=== PATIENT | female | born 1955 | race Caucasian/White ===

== ENCOUNTER 2017-08-23 06:00 | Inpatient (IN) | payer OTHER ==
[~2017-08-23] VITALS: Ht 167.6 cm; Wt 154.0 kg
[~2017-08-23 06:00] MED LIST: CHOL50006 PO; ESTRGEL TOP; HCTZ50TA PO; MELA5TAB8 PO; MISCTAB12 PO; MULTCAP PO; OMEG1205 PO; PHEN15CA PO; PRED1TAB PO; PROG100C PO; SIMV5TAB3 PO; SYNT25TA PO
[2017-08-23] MEDS ORDERED: SCOPOLAMINE 1.5 MG PATCH T-DERMAL SCH (07:15)
[2017-08-23] MEDS ORDERED: CHLORHEXIDINE GLUCONATE 2 % 1 PACK (2 CLOTHS) TOPICAL PRN (07:15)
[2017-08-23] MEDS ORDERED: SODIUM CHLORID 0.9% 500 ML IV PRN (07:15)
[2017-08-23] MEDS ORDERED: VANCOMYCIN 1,500 MG/NS 500 ML (for 85-99 kg) IV SCH ×2 (07:15)
[2017-08-23] MEDS ORDERED: LACTATED RINGER'S 1000 ML IV PRN (07:15)
[2017-08-23] MEDS ORDERED: ONDANSETRON HCL 4 MG/2 ML VIAL IV PUSH SCH (07:15)
[2017-08-23] MEDS ORDERED: metroNIDAZOLE 500 MG INJ 100 ML IV SCH (07:15)
[2017-08-23] MEDS ORDERED: METOPROLOL TARTRATE 25 MG TAB PO PRN (07:15)
[2017-08-23] MEDS ORDERED: POVIDONE IODINE 5% (ANTISEPSIS KIT) 4 APPLICATIONS EACH NARE PRN (07:15)
[2017-08-23] MEDS ORDERED: APREPITANT 40 MG CAP PO SCH (07:15)
[2017-08-23] MEDS ORDERED: CHOL5000 PO (07:17)
[2017-08-23] MEDS ORDERED: TRIA37.53 PO (07:17)
[2017-08-23] MEDS ORDERED: ESTRGEL VAGINAL (07:17)
[2017-08-23] MEDS ORDERED: OMEGCAP PO (07:17)
[2017-08-23] MEDS ORDERED: PROG100C PO (07:17)
[2017-08-23] MEDS ORDERED: LEVO25TA4 PO (07:17)
[2017-08-23] MEDS ORDERED: AMLO2.5T PO (07:19)
[2017-08-23] MEDS ORDERED: ARMO120T PO (07:25)
[2017-08-23] MEDS ORDERED: LEVE250T5 PO (07:25)
[2017-08-23] MEDS ORDERED: METH1CAP14 PO (07:25)
[2017-08-23] MEDS ORDERED: MELO15TA20 PO (07:25)
[2017-08-23] MEDS ORDERED: METF500T PO (07:28)
[2017-08-23] MEDS ORDERED: VENL75CA44 PO (07:28)
[2017-08-23] MEDS ORDERED: ALLO100T PO (07:28)
[2017-08-23] MEDS ORDERED: TRIA1CAP PO (07:28)
[2017-08-23] MEDS ORDERED: ceFAZolin 2 GM PREMIX 0 ML ONE (07:30)
[2017-08-23] MEDS ORDERED: BUPIVACAINE/EPINEPHRINE 0.25% 50 ML VIAL ONE (07:31)
[2017-08-23] MEDS ORDERED: ACETAMINOPHEN 1000 MG/100 ML 100 ML IV SCH (07:45)
[2017-08-23] MEDS ORDERED: METHYLENE BLUE 10 MG/ML VIAL OTHER ONE (10:13)
[2017-08-23] MEDS ORDERED: ENALAPRILAT 1.25 MG/ML VIAL IV PUSH PRN (10:45)
[2017-08-23] MEDS ORDERED: HYDROmorphone HCL 2 MG TAB PO PRN (10:45)
[2017-08-23] MEDS ORDERED: SODIUM CHLORIDE 0.9% FLUSH 10 ML FLUSH IV FLUSH PRN (10:45)
[2017-08-23] MEDS ORDERED: diphenhydrAMINE HCL ELIXIR 12.5 MG/5 ML CUP PO PRN (10:45)
[2017-08-23] MEDS ORDERED: NALOXONE HCL 0.4 MG/ML AMP IV PUSH PRN (10:45)
[2017-08-23] MEDS ORDERED: Post-op Orders (for Pharmacy) MISC OTHER ONE (10:51)
[2017-08-23] MEDS ORDERED: *RESP: ALBUTEROL 2.5 MG/3 ML NEB (PRN) PERIprocedural Use ONLY NEB ONE (11:30)
[2017-08-23] MEDS ORDERED: ePHEDrine/NS 25 MG/5 ML SYR IV ONE (12:00)
[2017-08-23] MEDS: METOCLOPRAMIDE HCL 10 MG/2 ML VIAL IV PUSH SCH ×2 (12:00→16:45)
[2017-08-23] MEDS ORDERED: GLYCOPYRROLATE 1 MG/5 ML SYRINGE IV PUSH ONE (12:00)
[2017-08-23] MEDS ORDERED: KETOROLAC TROMETHAMINE 30 MG/ML (IVP) VIAL IV PUSH ONE (12:00)
[2017-08-23] MEDS ORDERED: MORPHINE SULFATE 4 MG/ML INJ IV ONE (12:00)
[2017-08-23] MEDS ORDERED: ROCURONIUM INJ 50 MG/5 ML SYRINGE IV PUSH ONE (12:00)
[2017-08-23] MEDS ORDERED: PROPOFOL 200 MG/20 ML AMP IV ONE (12:00)
[2017-08-23] MEDS ORDERED: MIDAZOLAM HCL 2 MG/2 ML VIAL IV ONE (12:00)
[2017-08-23] MEDS ORDERED: ONDANSETRON HCL 4 MG/2 ML VIAL IV ONE (12:00)
[2017-08-23] MEDS ORDERED: NEOSTIGMINE 3 MG/3 ML SYR IV ONE (12:00)
[2017-08-23] MEDS ORDERED: PHENYLEPH/NS 1000 MCG/10 ML SYR IV ONE (12:00)
[2017-08-23] MEDS: RESP: ALBUTEROL 2.5 MG/3 ML NEB (SCH) INH ×2 (12:00→20:31)
[2017-08-23] MEDS ORDERED: LIDOCAINE HCL 1% PF 5 ML AMPULE OTHER ONE (12:00)
[2017-08-23] MEDS: 1/2 NS + KCL 20 MEQ INJ 1,000 ML IV SCH ×2 (12:21→20:49)
[2017-08-23] MEDS: MORPHINE SULFATE 30 MG/30 ML PCA IV SCH (12:22)
[2017-08-23 13:05] LABS: HEMATOCRIT 38.5 % (35.0-46.0); REVIEW FLAG FINAL
[2017-08-23] MEDS ORDERED: DO NOT ADM ANY ANTICOAGULANT DRUGS PRN (14:00)
[2017-08-23] MEDS: PCA - TOTAL MG MORPHINE DELIVERED PER SHIFT SCH ×2 (14:00→22:00)
[2017-08-23] MEDS ORDERED: ENOXAPARIN SODIUM 40 MG/0.4 ML SYRINGE SQ SCH (15:00)
[2017-08-23 16:00] VITALS: BP 104/54; PULSE 71; RESP 17; TEMP 96.2; O2SAT 97
[2017-08-23] MEDS ORDERED: LACTATED RINGER'S 1000 ML INJ 500 ML IV SCH (16:00)
[2017-08-23] MEDS: metroNIDAZOLE 500 MG INJ 100 ML IV SCH (16:42)
[2017-08-23] MEDS ORDERED: PILL SPLITTER OTHER PRN (17:45)
[2017-08-23 20:09] VITALS: BP 145/68; PULSE 78; RESP 16; TEMP 96.6; O2SAT 95
[2017-08-23 20:31] VITALS: O2SAT 95
[2017-08-23] MEDS: levETIRAcetam 250 MG TAB PO SCH ×2 (20:48→21:00)
[2017-08-23] MEDS: VANCOMYCIN INJ 1,000 MG in SODIUM CHLOR 0.9% 250 ML INJ 250 ML IV SCH (20:48)
[2017-08-23] MEDS: SODIUM CHLORIDE 0.9% FLUSH 10 ML FLUSH IV FLUSH SCH (20:49)
[2017-08-23] MEDS: ONDANSETRON HCL 4 MG/2 ML VIAL IV PUSH PRN (21:15)
--- NOTE | 2017-08-23 22:01 | MP ---
cc: ESTEFANIA HERNANDEZ M.D., LARS DATE OF SURGERY 08/23/2017 DATE OF 1955 PREOPERATIVE DIAGNOSIS Morbid obesity with BMI of 54 complicated by essential hypertension. POSTOPERATIVE DIAGNOSIS Morbid obesity with BMI of 54 complicated by essential hypertension. PROCEDURE Laparoscopic vertical sleeve gastrectomy over A 36-Kazakh ViSiGi bougie. SURGEON Estefania Hernandez MD [employer] Julian Preciado MD. Dr. Preciado's assistance was necessary for the procedure due to the complexity of the procedure. Dr. Preciado assisted with manipulation and exposure during the procedure. Dr. Preciado was present for the entire procedure. ANESTHESIA General endotracheal anesthesia. ESTIMATED BLOOD LOSS 600 cc. FINDINGS Adhesions of omentum to abdominal wall. As a result of this on entering the abdominal cavity the mesentery of the small bowel was entered which led to bleeding. The bleeding was controlled with suture ligation. SPECIMENS None. OPERATION The patient was brought to the operating room, placed on the operating table in supine position. Bilateral sequential inflation device placed on the lower extremities. General anesthesia instituted. Antibiotics initiated. The abdomen was prepped and draped sterilely. A point in the epigastrium 15 cm distal to the xiphoid in the midline anesthetized with 0.25% Marcaine with epinephrine. The skin incision was made, a 5 mm OptiView port was placed under direct vision. The omentum adhesed to the abdominal wall. This started the abdominal wall which led to the placement of the trocar into the mesentery of the small bowel. This was identified and there was bleeding from the mesentery. Two additional 5 mm ports were placed in the right upper quadrant. In the left upper quadrant omental adhesions taken down. A 15 mm port was placed in the right upper quadrant. Attention focused on the mesentery. 2-0 Vicryl suture was used to ligate the bleeding vessel in the mesentery in a [id number] manner. Once this was done bleeding was stopped. The trocar appeared to pass through to the other side to the small bowel was inspected from the ligament of Treitz to the terminal ileum. No evidence of bowel injury identified. The hematoma in the mesentery which was not expanding after ligation. At this point attention focused on the sleeve gastrectomy. The patient was placed in reverse Trendelenburg position left side up. A Jackie-Flex retractor was placed. The left lobe of the liver was retracted. The vasculature along the greater curvature of the stomach was using a Harmonic scalpel starting a distance 5 cm proximal to the pylorus and carried towards the angle of His. The angle of His was taken down bluntly. Posterior ligamentous attachments were sharply . A 36-Kazakh ViSiGi bougie was placed at the start of the case and placed on suction. Division of the stomach started 5 cm proximal to the pylorus and carried towards the angle of His to completely excise approximately 80% of the stomach. This was performed using an Hassell Flex stapler at the pylorus. The first firing was with a black load, followed by a green load and four gold loads. All staple loads were reinforced with SeamGuard. A distance of 2 cm was left from the angle incisura and the staple line and a distance of 1 cm left from the GE junction and the staple line. The pylorus was then occluded, methylene blue tinged saline was instilled. There was no evidence of extravasation. The gastrocolic ligament was then sutured to the posterior leaflet of the SeamGuard using 2-0 Vicryl suture in a running manner. Bleeding points were controlled with Evicel. The excised stomach was removed from the peritoneal cavity through the 15 mm port site. The fascia at the 15 mm port site was approximated with 0 Vicryl suture. The CO2 was then released. All ports were removed. All skin incisions were closed with 4-0 Monocryl. The abdominal wall was cleaned and a sterile dressing placed. The patient was awakened and taken to the recovery room. MD SURJIT Galo/JESSI /4:25 PM /9:42 PM KHOA
[2017-08-23] MEDS: ACETAMINOPHEN 1000 MG/100 ML 100 ML IV SCH (23:02)
[2017-08-24] VITALS (9 sets, daily range): BP systolic 119–136; BP diastolic 61–67; PULSE 81–98; RESP 17–18; TEMP 96.8–98.5; O2SAT 93–99
[2017-08-24] MEDS: RESP: ALBUTEROL 2.5 MG/3 ML NEB (SCH) INH ×6 (00:07→20:28)
[2017-08-24] MEDS: metroNIDAZOLE 500 MG INJ 100 ML IV SCH ×2 (01:00→08:55)
[2017-08-24] MEDS: METOCLOPRAMIDE HCL 10 MG/2 ML VIAL IV PUSH SCH ×2 (01:00→05:36)
[2017-08-24] MEDS: MORPHINE SULFATE 30 MG/30 ML PCA IV SCH (01:04)
[2017-08-24] MEDS: diphenhydrAMINE HCL 50 MG/ML VIAL IV PUSH PRN (01:36)
[2017-08-24] MEDS: ACETAMINOPHEN 1000 MG/100 ML 100 ML IV SCH ×4 (05:36→21:30)
[2017-08-24] MEDS: PCA - TOTAL MG MORPHINE DELIVERED PER SHIFT SCH (06:00)
[2017-08-24 07:37] LABS: AUTOMATED NEUTROPHIL # 6.4 TH/MM3 (1.8-7.7); BASOPHIL % 0.3 % (0.0-2.0); EOSINOPHIL % 0.2 % (0.0-4.0); HEMATOCRIT 38.4 % (35.0-46.0); HEMO FLAGS DIFF FINAL; LYMPHOCYTE # 1.3 TH/MM3 (1.0-4.8); MEAN CELL VOLUME 93.9 FL (80.0-100.0); MEAN CORPUSCULAR HEMOGLOBIN 30.9 PG (27.0-34.0); MEAN CORPUSCULAR HGB CONC 32.9 % (32.0-36.0); MONO % 7.4 % (0.0-8.0); NEUT % 76.1 % (16.0-70.0); PLATELET COUNT 188 TH/MM3 (150-450); RED BLOOD COUNT 4.09 MIL/MM3 (4.00-5.30); RED CELL DISTRIBUTION WIDTH 14.5 % (11.6-17.2); WHITE BLOOD COUNT 8.5 TH/MM3 (4.0-11.0)
[2017-08-24 07:53] LABS: BICARBONATE 24.5 MEQ/L (21.0-32.0); MAGNESIUM 2.3 MG/DL (1.5-2.5); POTASSIUM 4.6 MEQ/L (3.5-5.1)
[2017-08-24] MEDS: 1/2 NS + KCL 20 MEQ INJ 1,000 ML IV SCH ×3 (08:57→21:30)
[2017-08-24] MEDS: PANTOPRAZOLE SOD 40 MG DELAYED RELEASE TAB PO SCH (08:58)
[2017-08-24] MEDS: VENLAFAXINE HCL XR 75 MG CAP PO SCH (08:58)
[2017-08-24] MEDS: amLODIPine BESYLATE 5 MG TAB PO SCH (08:58)
[2017-08-24] MEDS: ALLOPURINOL 100 MG TAB PO SCH (08:58)
[2017-08-24] MEDS: THYROID 60 MG TAB PO SCH (08:58)
[2017-08-24] MEDS: levETIRAcetam 250 MG TAB PO SCH ×2 (08:58→21:30)
[2017-08-24] MEDS: SODIUM CHLORIDE 0.9% FLUSH 10 ML FLUSH IV FLUSH SCH ×2 (09:00→21:00)
[2017-08-24] MEDS: VANCOMYCIN INJ 1,000 MG in SODIUM CHLOR 0.9% 250 ML INJ 250 ML IV SCH (10:05)
--- NOTE | 2017-08-24 15:44 | HHI.PR ---
Subjective Subjective Notes Sitting up in chair No GI complaints Incisional pain is better controlled today Going slow with PO fluids Objective Vitals/I&O Vital Signs Date Time Temp Pulse Resp B/P (MAP) Pulse Ox O2 Delivery O2 Flow Rate FiO2 08/24/17 12:00 96.8 98 17 126/63 (84) 96 08/24/17 08:05 21 08/23/17 15:30 Nasal Cannula 3 Labs Laboratory Tests Test 08/24/17 06:35 White Blood Count 8.5 Red Blood Count 4.09 Hemoglobin 12.6 Hematocrit 38.4 Mean Corpuscular Volume 93.9 Mean Corpuscular Hemoglobin 30.9 Mean Corpuscular Hemoglobin Concent 32.9 Red Cell Distribution Width 14.5 Platelet Count 188 Mean Platelet Volume 8.8 Neutrophils (%) (Auto) 76.1 Lymphocytes (%) (Auto) 16.0 Monocytes (%) (Auto) 7.4 Eosinophils (%) (Auto) 0.2 Basophils (%) (Auto) 0.3 Neutrophils # (Auto) 6.4 Lymphocytes # (Auto) 1.3 Monocytes # (Auto) 0.6 Eosinophils # (Auto) 0.0 Basophils # (Auto) 0.0 CBC Comment DIFF FINAL Differential Comment Blood Urea Nitrogen 19 Creatinine 0.69 Random Glucose 142 Calcium Level 8.7 Magnesium Level 2.3 Sodium Level 138 Potassium Level 4.6 Chloride Level 103 Carbon Dioxide Level 24.5 Anion Gap 11 Estimat Glomerular Filtration Rate 86 Cardiovascular: Regular Lungs: Clear Abdomen: Post-op tenderness Extremities: Perfused Wound Wound : Wound Location: Abdomen Appearance: Clean & Dry A/P Assessment and Plan 61yo F POD#1 laparoscopic -Continue with frequent ambulation -Continue to increase PO fluids as tolerated -Transition to oral pain control Discharge Planning D/C home tomorrow lFower Gomez Aug 24, 2017 15:44
[2017-08-24] MEDS: ENOXAPARIN SODIUM 40 MG/0.4 ML SYRINGE SQ SCH (15:45)
[2017-08-24] MEDS ORDERED: MAGNESIUM HYDROXIDE SUSP 30 ML CUP PO ONE (17:00)
[2017-08-24] MEDS: ONDANSETRON HCL 4 MG/2 ML VIAL IV PUSH PRN (18:32)
[2017-08-24] MEDS: DOCUSATE SODIUM 100 MG/10 ML UDC PO SCH (21:30)
[2017-08-24] MEDS: METOCLOPRAMIDE HCL 10 MG/2 ML VIAL IV PUSH PRN (21:30)
[2017-08-25] VITALS (7 sets, daily range): BP systolic 131–139; BP diastolic 62–71; PULSE 89–106; RESP 16–20; TEMP 97.5–99.6; O2SAT 93–98
[2017-08-25] MEDS: RESP: ALBUTEROL 2.5 MG/3 ML NEB (SCH) INH ×3 (00:23→07:48)
[2017-08-25] MEDS: METOCLOPRAMIDE HCL 10 MG/2 ML VIAL IV PUSH PRN (04:41)
[2017-08-25] MEDS: ACETAMINOPHEN 1000 MG/100 ML 100 ML IV SCH ×4 (04:41→21:25)
[2017-08-25] MEDS ORDERED: LORazepam 2 MG/ML VIAL IV PUSH ONE (08:30)
[2017-08-25] MEDS: 1/2 NS + KCL 20 MEQ INJ 1,000 ML IV SCH ×2 (08:55→21:26)
[2017-08-25] MEDS: amLODIPine BESYLATE 5 MG TAB PO SCH (08:56)
[2017-08-25] MEDS: ALLOPURINOL 100 MG TAB PO SCH (08:57)
[2017-08-25] MEDS: levETIRAcetam 250 MG TAB PO SCH ×2 (08:57→21:25)
[2017-08-25] MEDS: PANTOPRAZOLE SOD 40 MG DELAYED RELEASE TAB PO SCH (08:57)
[2017-08-25] MEDS: THYROID 60 MG TAB PO SCH (08:58)
[2017-08-25] MEDS: SODIUM CHLORIDE 0.9% FLUSH 10 ML FLUSH IV FLUSH SCH ×2 (08:58→21:25)
[2017-08-25] MEDS: VENLAFAXINE HCL XR 75 MG CAP PO SCH (08:58)
[2017-08-25] MEDS: DOCUSATE SODIUM 100 MG/10 ML UDC PO SCH ×2 (08:58→21:25)
[2017-08-25 10:11] LABS: AUTOMATED NEUTROPHIL # 8.6 TH/MM3 (1.8-7.7); BASOPHIL % 0.3 % (0.0-2.0); EOSINOPHIL # 0.1 TH/MM3 (0-0.4); EOSINOPHIL % 0.7 % (0.0-4.0); HEMATOCRIT 31.6 % (35.0-46.0); HEMO FLAGS DIFF FINAL; LYMPH % 13.8 % (9.0-44.0); LYMPHOCYTE # 1.6 TH/MM3 (1.0-4.8); MEAN CELL VOLUME 92.9 FL (80.0-100.0); MEAN CORPUSCULAR HGB CONC 33.4 % (32.0-36.0); NEUT % 75.2 % (16.0-70.0); PLATELET COUNT 163 TH/MM3 (150-450); RED CELL DISTRIBUTION WIDTH 14.5 % (11.6-17.2); WHITE BLOOD COUNT 11.4 TH/MM3 (4.0-11.0)
[2017-08-25] MEDS ORDERED: MAGNESIUM HYDROXIDE SUSP 30 ML CUP PO ONE (13:00)
[2017-08-25] MEDS ORDERED: POLYETHYLENE GLYCOL 17 GM PKG PO ONE (13:00)
--- NOTE | 2017-08-25 13:04 | HHI.PR ---
Subjective Subjective Notes Complains of pelvic pain Urine is dark with some sediment, scant amount of blood seen on toilet Tolerating PO fluids No GI complaints Objective Vitals/I&O Vital Signs Date Time Temp Pulse Resp B/P (MAP) Pulse Ox O2 Delivery O2 Flow Rate FiO2 08/25/17 12:00 97.6 103 17 139/62 (87) 94 08/25/17 07:48 21 08/23/17 15:30 Nasal Cannula 3 Labs Laboratory Tests Test 08/25/17 09:25 White Blood Count 11.4 Red Blood Count 3.40 Hemoglobin 10.6 Hematocrit 31.6 Mean Corpuscular Volume 92.9 Mean Corpuscular Hemoglobin 31.0 Mean Corpuscular Hemoglobin Concent 33.4 Red Cell Distribution Width 14.5 Platelet Count 163 Mean Platelet Volume 9.0 Neutrophils (%) (Auto) 75.2 Lymphocytes (%) (Auto) 13.8 Monocytes (%) (Auto) 10.0 Eosinophils (%) (Auto) 0.7 Basophils (%) (Auto) 0.3 Neutrophils # (Auto) 8.6 Lymphocytes # (Auto) 1.6 Monocytes # (Auto) 1.1 Eosinophils # (Auto) 0.1 Basophils # (Auto) 0.0 CBC Comment DIFF FINAL Differential Comment Abdomen: Post-op tenderness Extremities: Perfused Wound Wound : Wound Location: Abdomen Appearance: Clean & Dry A/P Assessment and Plan -61yo F POD#2 laparoscopic VSG -Send UA, renal U/S to assess for possible stones -Continue with frequent ambulation -Continue to increase PO fluids as tolerated -Add another dose of MoM and Miralax for bowel regimen Discharge Planning D/C home most likely tomorrow Flower Gomez Aug 25, 2017 13:04
[2017-08-25 13:50] LABS: BLOOD, URINE MOD (NEG); COMMENT (UR) CULTURE INDICATED; CULTURE IF INDICATED CULTURE INDICATED; GLUCOSE,URINE NEG (NEG); KETONE, URINE 80 mg/dL (NEG); MUCUS URINE FEW /lpf (OCC); NITRITE,URINE NEG (NEG); SQUAMOUS EPITHELIAL CELL URINE 2 /hpf (0-5)
--- NOTE | 2017-08-25 13:50 | RADRPT ---
EXAM DATE/TIME: 08/25/2017 12:39 [facility] COMPARISON: No previous studies available for comparison. INDICATIONS : Hematuria. MEDICAL HISTORY : Hypothyroidism. Hypercholesterolemia. Hypertension. Sleep apnea. SURGICAL HISTORY : Cholecystectomy. Retinal surgery. L ankle fracture. Arm surgery. D&C. Fatty tumor left leg remove d. Abdominal cyst remmoved. ENCOUNTER: Initial ACUITY: 1 day PAIN SCORE: 0/10 LOCATION: Bilateral flank MEASUREMENTS: RIGHT KIDNEY: 11.4 x 5.9 x 6.4 cm LEFT KIDNEY: 13.0 x 6.7 x 7.0 cm FINDINGS: Examination is limited by patient's body habitus and bowel gas. RIGHT KIDNEY: Renal cortex is normal in thickness and echotexture. No hydronephrosis, stone, or mass. LEFT KIDNEY: Renal cortex is normal in thickness and echotexture. No hydronephrosis, stone, or mass. BLADDER: Within normal limits given the degree of distension. CONCLUSION: 1. Unremarkable renal ultrasound examination. No evidence for obstructive uropathy. Brady Mendenhall MD on August 25, 2017 at 13:48 Board Certified Radiologist. This report was verified electronically.
[2017-08-25 13:52] LABS: URINE COLOR LIGHT-RED (YELLW/STRAW)
[2017-08-25] MEDS: ENOXAPARIN SODIUM 40 MG/0.4 ML SYRINGE SQ SCH (15:08)
--- NOTE | 2017-08-25 19:22 | RADRPT ---
EXAM DATE/TIME: 08/25/2017 18:59 [facility] COMPARISON: No previous studies available for comparison. INDICATIONS : Left lower quadrant pain; posssible renal stone. ORAL CONTRAST: No oral contrast ingested. RADIATION DOSE: 18.16 CTDIvol (mGy) ; Patient body habitus MEDICAL HISTORY : Hypertension. SURGICAL HISTORY : Cholecystectomy. Gastric sleeve ENCOUNTER: Initial ACUITY: 1 day PAIN SCALE: 6/10 LOCATION: Left lower quadrant TECHNIQUE: Volumetric scanning of the abdomen and pelvis was performed. Using automated exposure control and ad justment of the mA and/or kV according to patient size, radiation dose was kept as low as reasonably achievable to obtain optimal diagnostic quality images. DICOM format image data is available electro nically for review and comparison. FINDINGS: The study is limited by the patient's body habitus in conjunction with the lack of oral and IV contra st. LOWER LUNGS: The visualized lower lungs are clear. LIVER: Homogeneous density without lesion. There is no dilation of the biliary tree. No calcified gallston es. SPLEEN: Normal size without lesion. PANCREAS: Within normal limits. KIDNEYS: Normal in size and shape. There is no mass, stone, or hydronephrosis. ADRENAL GLANDS: Within normal limits. VASCULAR: There is no aortic aneurysm. BOWEL/MESENTERY: There is stranding of the mesentery within the midline. There are multiple loops of small bowel that show wall thickening. No discrete free air or free fluid observed. No abscess appreciated. There are several loops of mildly dilated proximal small bowel within the left upper quadrant and left anterior midabdomen. A region maximum diameter of 3.7 cm. The colon is normal in caliber. ABDOMINAL WALL: Within normal limits. RETROPERITONEUM: There is no lymphadenopathy. BLADDER: No wall thickening or mass. REPRODUCTIVE: Within normal limits. INGUINAL: There is no lymphadenopathy or hernia. MUSCULOSKELETAL: Within normal limits for patient age. CONCLUSION: 1. This study is limited by the patient's body habitus in conjunction with the lack of oral and IV co ntrast. 2. Inflammatory process involving the mesentery as well as several loops of small bowel. There is mil d dilatation of the more proximal small bowel but no gross obstruction, abscess, or perforation. Tae Archuleta Jr., MD on August 25, 2017 at 19:14 Board Certified Radiologist. This report was verified electronically.
[2017-08-25] MEDS: ONDANSETRON HCL 4 MG/2 ML VIAL IV PUSH PRN (21:23)
[2017-08-25] MEDS: diphenhydrAMINE HCL 50 MG/ML VIAL IV PUSH PRN (22:10)
[2017-08-26 00:21] VITALS: BP 142/64; PULSE 98; RESP 17; TEMP 100.5; O2SAT 94
[2017-08-26] MEDS: ACETAMINOPHEN 1000 MG/100 ML 100 ML IV SCH ×2 (04:08→08:54)
[2017-08-26] MEDS: 1/2 NS + KCL 20 MEQ INJ 1,000 ML IV SCH (04:43)
[2017-08-26 05:36] VITALS: TEMP 96.7
[2017-08-26 08:00] VITALS: BP 119/62; PULSE 100; RESP 18; TEMP 98.3; O2SAT 96
[2017-08-26] MEDS: DOCUSATE SODIUM 100 MG/10 ML UDC PO SCH (08:39)
[2017-08-26] MEDS: VENLAFAXINE HCL XR 75 MG CAP PO SCH (08:39)
[2017-08-26] MEDS: PANTOPRAZOLE SOD 40 MG DELAYED RELEASE TAB PO SCH (08:39)
[2017-08-26] MEDS: THYROID 60 MG TAB PO SCH (08:39)
[2017-08-26] MEDS: ALLOPURINOL 100 MG TAB PO SCH (08:40)
[2017-08-26] MEDS: levETIRAcetam 250 MG TAB PO SCH (08:40)
[2017-08-26] MEDS: amLODIPine BESYLATE 5 MG TAB PO SCH (08:46)
[2017-08-26] MEDS: SODIUM CHLORIDE 0.9% FLUSH 10 ML FLUSH IV FLUSH SCH (08:47)
[2017-08-26] MEDS: ONDANSETRON HCL 4 MG/2 ML VIAL IV PUSH PRN (08:55)
[2017-08-26 12:00] VITALS: BP 137/67; PULSE 100; RESP 18; TEMP 95.5; O2SAT 97
[2017-08-26] MEDS ORDERED: SCOPOLAMINE 1.5 MG PATCH T-DERMAL ONE (12:00)
[2017-08-26] MEDS ORDERED: PROM25TA10 PO (12:00)
== END 2017-08-26 13:53 | disposition home or self-care (01) | DRG 620 ==
LOC: HSDI 06:00 → N07B 15:47
PROVIDERS: ADMIT Surgery; ATTEND Surgery
PROC: 0W3J4ZZ Control Bleeding in Pelvic Cavity, Percutaneous Endoscopic Approach (ICD-10-PCS; 2017-08-23)
PROC: 0DB64Z3 Excision of Stomach, Percutaneous Endoscopic Approach, Vertical (ICD-10-PCS; principal; 2017-08-23 08:27)
DX: E66.01 Morbid (severe) obesity due to excess calories (principal); I97.51 Accidental puncture and laceration of a circulatory system organ or structure during a circulatory system procedure; I10 Essential (primary) hypertension; Z68.43 Body mass index [BMI] 50.0-59.9, adult; K66.0 Peritoneal adhesions (postprocedural) (postinfection); G40.909 Epilepsy, unspecified, not intractable, without status epilepticus
CPT/HCPCS: 74176; 76775; 80048; 81001; 83735; 85014; 85018; 85025; 87086; 94150; 94640; 94664; J0131; J0690; J1200; J1650; J1885; J2060; J2250; J2270; J2370; J2405; J2710; J2765; J3010; J3370; J7040; J7050; J7120; J7613; J8501

== ENCOUNTER 2017-08-28 17:00 | Inpatient (IN) | payer OTHER ==
[~2017-08-28] VITALS: Ht 167.6 cm; Wt 160.0 kg
[~2017-08-28 17:00] MED LIST changes: +ALLO100T PO; +AMLO2.5T PO; +ARMO120T PO; +CHOL5000 PO; -CHOL50006 PO; -ESTRGEL TOP; +ESTRGEL VAGINAL; -HCTZ50TA PO; +LEVE250T5 PO; -MELA5TAB8 PO; +MELO15TA20 PO; +METF500T PO; +METH1CAP14 PO; -MISCTAB12 PO; -MULTCAP PO; -OMEG1205 PO; +OMEGCAP PO; -PHEN15CA PO; -PRED1TAB PO; +PROM25TA10 PO; -SIMV5TAB3 PO; -SYNT25TA PO; +TRIA1CAP PO; +VENL75CA44 PO
[2017-08-28] MEDS ORDERED: HYDROmorphone HCL PF 1 MG/ML VIAL IV PUSH PRN (18:45)
[2017-08-28] MEDS ORDERED: METOCLOPRAMIDE HCL 10 MG TAB PO PRN (19:30)
[2017-08-28] MEDS ORDERED: ONDANSETRON ODT 4 MG TAB PO PRN (19:30)
[2017-08-28 20:00] VITALS: BP 164/80; PULSE 100; RESP 17; TEMP 96.5; O2SAT 99
[2017-08-28] MEDS ORDERED: PILL SPLITTER OTHER PRN (20:00)
[2017-08-28] MEDS ORDERED: MULTIVITAMIN INJ 10 ML, THIAMINE INJ 100 MG in SODIUM CHLORID 0.9% 500 ML INJ 500 ML IV ONE (20:00)
[2017-08-28] MEDS: 1/2 NS + KCL 20 MEQ INJ 1,000 ML IV SCH (20:10)
[2017-08-28] MEDS: SENNOSIDES SYRUP 8.8 MG/5 ML CUP PO SCH (20:11)
[2017-08-28] MEDS: SCOPOLAMINE 1.5 MG PATCH T-DERMAL SCH (20:13)
[2017-08-28] MEDS: REMOVE OLD PATCH T-DERMAL SCH (20:14)
[2017-08-28] MEDS: KETOROLAC TROMETHAMINE 30 MG/ML (IVP) VIAL IV PUSH SCH (20:15)
[2017-08-28] MEDS ORDERED: PROGESTERONE 100 MG PO SCH (21:00)
[2017-08-28] MEDS ORDERED: ESTROGEL OTHER SCH (21:00)
[2017-08-28] MEDS: levETIRAcetam 250 MG TAB PO SCH ×2 (23:35→23:59)
[2017-08-29] VITALS: BP 175/77; PULSE 91; RESP 17; TEMP 99; O2SAT 95
[2017-08-29] MEDS ORDERED: METOCLOPRAMIDE HCL 10 MG/2 ML VIAL IV PRN (01:45)
[2017-08-29] MEDS: KETOROLAC TROMETHAMINE 30 MG/ML (IVP) VIAL IV PUSH SCH ×4 (01:50→18:22)
[2017-08-29] MEDS: ONDANSETRON HCL 4 MG/2 ML VIAL IV PUSH PRN ×3 (01:51→22:38)
[2017-08-29 04:00] VITALS: BP 139/65; PULSE 95; RESP 18; TEMP 97.2; O2SAT 97
[2017-08-29] MEDS: 1/2 NS + KCL 20 MEQ INJ 1,000 ML IV SCH ×3 (05:15→20:27)
[2017-08-29] MEDS: THYROID 60 MG TAB PO SCH (05:38)
[2017-08-29 07:26] LABS: AUTOMATED NEUTROPHIL # 6.2 TH/MM3 (1.8-7.7); BASOPHIL % 0.1 % (0.0-2.0); EOSINOPHIL # 0.2 TH/MM3 (0-0.4); EOSINOPHIL % 1.7 % (0.0-4.0); HEMATOCRIT 31.7 % (35.0-46.0); LYMPH % 15.1 % (9.0-44.0); LYMPHOCYTE # 1.4 TH/MM3 (1.0-4.8); MEAN CELL VOLUME 92.1 FL (80.0-100.0); MEAN CORPUSCULAR HEMOGLOBIN 31.4 PG (27.0-34.0); MONO % 14.1 % (0.0-8.0); PLATELET COUNT 279 TH/MM3 (150-450); RED BLOOD COUNT 3.45 MIL/MM3 (4.00-5.30); RED CELL DISTRIBUTION WIDTH 14.9 % (11.6-17.2)
[2017-08-29 07:39] LABS: HEMO FLAGS AUTO DIFF
[2017-08-29 07:50] LABS: BICARBONATE 24.2 MEQ/L (21.0-32.0); MAGNESIUM 2.3 MG/DL (1.5-2.5); POTASSIUM 3.8 MEQ/L (3.5-5.1)
[2017-08-29 08:00] VITALS: BP 145/71; PULSE 94; RESP 16; TEMP 99; O2SAT 94
[2017-08-29] MEDS: METHYLPHENIDATE HCL 10 MG EXTENDED RELEASE TAB PO SCH (09:00)
[2017-08-29] MEDS: SENNOSIDES SYRUP 8.8 MG/5 ML CUP PO SCH (09:00)
[2017-08-29] MEDS ORDERED: TRIAMTERENE 50 MG PO SCH (09:00)
[2017-08-29] MEDS: ALLOPURINOL 100 MG TAB PO SCH (09:00)
[2017-08-29] MEDS: levETIRAcetam 250 MG TAB PO SCH ×2 (09:00→20:24)
[2017-08-29] MEDS: FOLIC ACID 1 MG TAB PO SCH (09:00)
[2017-08-29] MEDS ORDERED: HYDROCHLOROTHIAZIDE 25 MG PO SCH (09:00)
[2017-08-29] MEDS: VENLAFAXINE HCL XR 75 MG CAP PO SCH (09:00)
[2017-08-29] MEDS: CHOLECALCIFEROL (VIT D3) 5000 UNIT CAP PO SCH (09:00)
[2017-08-29] MEDS: amLODIPine BESYLATE 5 MG TAB PO SCH (09:00)
[2017-08-29] MEDS ORDERED: PANTOPRAZOLE SODIUM 40 MG VIAL IV PUSH SCH (09:00)
[2017-08-29] MEDS: metFORMIN HCL 500 MG TAB PO SCH (09:00)
[2017-08-29 09:20] LABS: BANDS 16 % (0-6); CORRECTED NUCLEATED RBC 1 /100 WBC (0-0); EOSINOPHILS 2 % (0-4); METAMYELOCYTES 1 % (0-1); MYELOCYTES 2 % (0-0); NEUTROPHIL # MANUAL DIFF 6.7 TH/MM3 (1.8-7.7); PLATELET ESTIMATE SMEAR NORMAL (NORMAL); PLATELET MORPHOLOGY NORMAL (NORMAL); POLYS (SEG NEUTROPHILS) 55 % (16-70); SCAN/DIFF FINAL DIFF MANUAL; WBC DIFF SAMPLE 100
--- NOTE | 2017-08-29 09:21 | HHI.HP ---
[facility] Service Bariatrics Primary Care Physician Rafael Rowan MD Admission Diagnosis Nausea and Vomiting, possible small bowel obstruction History of Present Illness 61yo female who underwent elective laparoscopic sleeve gastrectomy on 08/23/17. Her hospital course was complicated by persistent nausea which required her to stay an extra night. The patient reports that initially her nausea was better but by Monday night she started having uncontrolled nausea. She was unable to keep down fluids and medications. She underwent an abdominal CT in an outside facility which revealed moderate dilated loops of the small bowel, suggesting possible obstruction. She was then admitted to the hospital for IV antiemetics and hydration. Review of Systems Constitutional: COMPLAINS OF: Fatigue Gastrointestinal: COMPLAINS OF: Nausea, Vomiting Past Family Social History Past Medical History Rheumatoid Arthritis Gout Hypothyroidism Attention Deficit Disorder Depression Epilepsy Past Surgical History Ankle Arthroplasty Cholecystectomy Tonsillectomy Reported Medications Current Medications Medications (Trade) Dose Ordered Sig/Daniel Route PRN Reason Start Time Stop Time Status Last Admin Dose Admin Hydromorphone HCl (Dilaudid Pf Inj) 0.5 mg Q4H PRN IV PUSH pain scale 6-10 08/28/17 18:45 Ketorolac Tromethamine (Toradol Inj) 15 mg Q6HR IV PUSH 08/28/17 18:45 08/29/17 05:39 Sennosides (Senna Liq) 8.8 mg DAILY PO 08/28/17 18:45 08/28/17 20:11 Potassium Chloride/Sodium Chloride 1,000 ml @ 100 mls/hr Q10H IV 08/28/17 19:15 08/28/17 20:10 Folic Acid (Folate) 1 mg DAILY PO 08/29/17 09:00 Scopolamine (Transderm-Scop 1.5 Mg Patch.72 Hr) 1 patch Q72H T-DERMAL 08/28/17 20:00 Miscellaneous Information 1 Q72H T-DERMAL 08/28/17 20:00 Allopurinol (Zyloprim) 200 mg DAILY PO 08/29/17 09:00 Amlodipine Besylate (Norvasc) 2.5 mg DAILY PO 08/29/17 09:00 Miscellaneous (Pill Splitter) 1 ea UNSCH PRN OTHER SEE LABEL COMMENTS 08/28/17 20:00 Cholecalciferol (Vitamin D3) 5,000 units DAILY PO 08/29/17 09:00 Levetriacetam (Keppra) 250 mg BID PO 08/28/17 21:00 08/28/17 23:59 Metformin HCl (Glucophage) 250 mg DAILY PO 08/29/17 09:00 Methylphenidate HCl (Methylin Sr) 20 mg DAILY PO 08/29/17 09:00 Patient Own Medication PT OWN MED: PROGESTERONE (MICRONIZED... HS PO 08/28/17 21:00 Future Hold Thyroid (Spade Thyroid) 120 mg DAILY@0600 PO 08/29/17 06:00 Venlafaxine HCl (Effexor Xr) 75 mg DAILY PO 08/29/17 09:00 Patient Own Medication PT OWN MED: Hydrochlorothiazide 25 mg/triamter... DAILY PO 08/29/17 09:00 Future Hold Patient Own Medication PT OWN MED: ESTRO... Q7D OTHER 08/28/17 21:00 Future Hold Metoclopramide HCl (Reglan Inj) 10 mg Q6H PRN IV NAUSEA OR VOMITING 08/29/17 01:45 08/29/17 05:39 Ondansetron HCl (Zofran Inj) 4 mg Q6H PRN IV PUSH NAUSEA OR VOMITING 08/29/17 01:45 08/29/17 01:51 Pantoprazole Sodium (Protonix Inj) 40 mg Q24H IV PUSH 08/29/17 09:00 Multivitamins 10 ml/Thiamine HCl 100 mg/Sodium Chloride 511 ml @ 125 mls/hr Q24H IV 08/30/17 09:00 Enoxaparin Sodium (Lovenox Inj) 40 mg Q24H SQ 08/29/17 08:45 UNV Fosaprepitant 150 mg/Sodium Chloride 150 ml @ 300 mls/hr ONCE ONCE IV 08/29/17 08:45 08/29/17 09:14 UNV Allergies: Coded Allergies: propoxyphene (Unverified Allergy, Intermediate, HALLUCINATIONS, 08/23/17) Uncoded Allergies: ADHESIVE TAPE (Allergy, Intermediate, PULLS SKIN OFF, 09/20/13) DARVOCET-HALLUCINATIONS; (Allergy, Unknown, 06/24/03) Active Ordered Medications Current Medications Medications (Trade) Dose Ordered Sig/Daniel Route Start Time Stop Time Status Last Admin (Dilaudid Pf Inj) 0.5 mg Q4H PRN IV PUSH 08/28/17 18:45 (Toradol Inj) 15 mg Q6HR IV PUSH 08/28/17 18:45 08/29/17 05:39 (Senna Liq) 8.8 mg DAILY PO 08/28/17 18:45 08/28/17 20:11 Potassium Chloride/Sodium Chloride 1,000 ml @ 100 mls/hr Q10H IV 08/28/17 19:15 08/28/17 20:10 (Folate) 1 mg DAILY PO 08/29/17 09:00 (Transderm-Scop 1.5 Mg Patch.72 Hr) 1 patch Q72H T-DERMAL 08/28/17 20:00 Miscellaneous Information 1 Q72H T-DERMAL 08/28/17 20:00 (Zyloprim) 200 mg DAILY PO 08/29/17 09:00 (Norvasc) 2.5 mg DAILY PO 08/29/17 09:00 (Pill Splitter) 1 ea UNSCH PRN OTHER 08/28/17 20:00 (Vitamin D3) 5,000 units DAILY PO 08/29/17 09:00 (Keppra) 250 mg BID PO 08/28/17 21:00 08/28/17 23:59 (Glucophage) 250 mg DAILY PO 08/29/17 09:00 (Methylin Sr) 20 mg DAILY PO 08/29/17 09:00 Patient Own Medication PT OWN MED: PROGESTERONE (MICRONIZED... HS PO 08/28/17 21:00 Future Hold (Spade Thyroid) 120 mg DAILY@0600 PO 08/29/17 06:00 (Effexor Xr) 75 mg DAILY PO 08/29/17 09:00 Patient Own Medication PT OWN MED: Hydrochlorothiazide 25 mg/triamter... DAILY PO 08/29/17 09:00 Future Hold Patient Own Medication PT OWN MED: ESTRO... Q7D OTHER 08/28/17 21:00 Future Hold (Reglan Inj) 10 mg Q6H PRN IV 08/29/17 01:45 08/29/17 05:39 (Zofran Inj) 4 mg Q6H PRN IV PUSH 08/29/17 01:45 08/29/17 01:51 (Protonix Inj) 40 mg Q24H IV PUSH 08/29/17 09:00 Multivitamins 10 ml/Thiamine HCl 100 mg/Sodium Chloride 511 ml @ 125 mls/hr Q24H IV 08/30/17 09:00 (Lovenox Inj) 40 mg Q24H SQ 08/29/17 08:45 UNV Fosaprepitant 150 mg/Sodium Chloride 150 ml @ 300 mls/hr ONCE ONCE IV 08/29/17 08:45 08/29/17 09:14 UNV Family History Cardiovascular disease Parkinson's Diabetes Mellitus Social History The patient is currently retired. She is . Non smoker. Denies alcohol use since bariatric surgery Physical Exam Vital Signs Vital Signs Date Time Temp Pulse Resp B/P (MAP) Pulse Ox O2 Delivery O2 Flow Rate FiO2 08/29/17 04:00 97.2 95 18 139/65 (89) 97 08/29/17 04:00 97.2 95 18 139/65 (89) 97 08/29/17 00:00 99.0 91 17 175/77 (109) 95 08/28/17 20:00 96.5 100 17 164/80 (108) 99 Physical Exam GENERAL: fatigued SKIN: Warm and dry. HEAD: Normocephalic. EYES: No scleral icterus. No injection or drainage. NECK: Supple, trachea midline. CARDIOVASCULAR: Regular rate and rhythm without murmurs, gallops, or rubs. RESPIRATORY: Breath sounds equal bilaterally. No accessory muscle use. GASTROINTESTINAL: Abdomen soft, non-tender, nondistended, intermittent bowel sounds MUSCULOSKELETAL: No cyanosis, or edema. Laboratory Laboratory Tests Test 08/29/17 06:55 White Blood Count 9.0 Red Blood Count 3.45 Hemoglobin 10.8 Hematocrit 31.7 Mean Corpuscular Volume 92.1 Mean Corpuscular Hemoglobin 31.4 Mean Corpuscular Hemoglobin Concent 34.0 Red Cell Distribution Width 14.9 Platelet Count 279 Mean Platelet Volume 7.9 Neutrophils (%) (Auto) 69.0 Lymphocytes (%) (Auto) 15.1 Monocytes (%) (Auto) 14.1 Eosinophils (%) (Auto) 1.7 Basophils (%) (Auto) 0.1 Neutrophils # (Auto) 6.2 Lymphocytes # (Auto) 1.4 Monocytes # (Auto) 1.3 Eosinophils # (Auto) 0.2 Basophils # (Auto) 0.0 CBC Comment AUTO DIFF Blood Urea Nitrogen 29 Creatinine 0.66 Random Glucose 124 Calcium Level 8.5 Phosphorus Level 4.1 Magnesium Level 2.3 Sodium Level 132 Potassium Level 3.8 Chloride Level 96 Carbon Dioxide Level 24.2 Anion Gap 12 Estimat Glomerular Filtration Rate 91 Result Diagram: 08/29/1765408/29/17654 Caprini VTE Risk Assessment Caprini VTE Risk Assessment: Mod/High Risk (score >= 2) Caprini Risk Assessment Model Point Value = 1 Point Value = 2 Point Value = 3 Point Value = 5 Age 41-60 Minor surgery BMI > 25 kg/m2 Swollen legs Varicose veins or History of unexplained or recurrent spontaneous Oral contraceptives or hormone replacement Sepsis (< 1 month) Serious lung disease, including pneumonia (< 1 month) Abnormal pulmonary function Acute myocardial infarction Congestive heart failure (< 1 month) History of inflammatory bowel disease Medical patient at bed rest Age 61-74 Arthroscopic surgery Major open surgery (> 45 min) Laparoscopic surgery (> 45 min) Malignancy Confined to bed (> 72 hours) Immobilizing plaster cast Central venous access Age >= 75 History of VTE Family history of VTE Factor V Leiden Prothrombin [id number] Lupus anticoagulant Anticardiolipin antibodies Elevated serum homocysteine Heparin-induced thrombocytopenia Other congenital or acquired thrombophilia Stroke (< 1 month) Elective arthroplasty Hip, pelvis, or leg fracture Acute spinal cord injury (< 1 month) Prophylaxis Regimen Total Risk Factor Score Risk Level Prophylaxis Regimen 0-1 Low Early ambulation 2 Moderate Order ONE of the following: *Sequential Compression Device (SCD) *Heparin 5000 units SQ BID 3-4 Higher Order ONE of the following medications: *Heparin 5000 units SQ TID *Enoxaparin/Lovenox 40 mg SQ daily (WT < 150 kg, CrCl > 30 mL/min) *Enoxaparin/Lovenox 30 mg SQ daily (WT < 150 kg, CrCl > 10-29 mL/min) *Enoxaparin/Lovenox 30 mg SQ BID (WT < 150 kg, CrCl > 30 mL/min) AND/OR *Sequential Compression Device (SCD) 5 or more Highest Order ONE of the following medications: *Heparin 5000 units SQ TID (Preferred with Epidurals) *Enoxaparin/Lovenox 40 mg SQ daily (WT < 150 kg, CrCl > 30 mL/min) *Enoxaparin/Lovenox 30 mg SQ daily (WT < 150 kg, CrCl > 10-29 mL/min) *Enoxaparin/Lovenox 30 mg SQ BID (WT < 150 kg, CrCl > 30 mL/min) AND *Sequential Compression Device (SCD) Assessment and Plan Assessment and Plan -IV antiemetics, patient refuses scopolamine patch at this time -Ice chips only for now, will give IV hydration and vitamin repletion including thiamin -DVT prophylactics -UGI in the AM Code Status Full Discussed Condition With This patient was seen by Dr. Preciado and myself and this note was written on his behalf Attending statement patient seen at bedside abdominal pain and nausea vomiting likely ileus hydration pain control bowel regimen Flower Gomez Aug 29, 2017 09:20 Julian Preciado MD Sep 02, 2017 20:58
[2017-08-29] MEDS: ENOXAPARIN SODIUM 40 MG/0.4 ML SYRINGE SQ SCH (09:59)
[2017-08-29] MEDS ORDERED: FOSAPREPITANT IV ONE (10:00)
[2017-08-29] MEDS ORDERED: SODIUM CHLORIDE 0.9% IV ONE (10:00)
[2017-08-29 12:00] VITALS: BP 150/68; PULSE 94; RESP 18; TEMP 98.5; O2SAT 94
[2017-08-29] MEDS ORDERED: MAGNESIUM CITRATE SOLN 300 ML BTL PO ONE ×2 (12:00→18:00)
[2017-08-29] MEDS: METOCLOPRAMIDE HCL 10 MG/2 ML VIAL IV SCH ×2 (13:17→18:22)
[2017-08-29 16:00] VITALS: BP 129/70; PULSE 104; RESP 18; TEMP 98; O2SAT 96
[2017-08-29] MEDS: BISACODYL EC 5 MG TABEC PO SCH ×2 (18:00→20:24)
--- NOTE | 2017-08-29 18:11 | RADRPT ---
EXAM DATE/TIME: 08/29/2017 00:00 [facility] COMPARISON: No relevant comparison. INDICATIONS : NG tube placement, post gastric sleeve. FLUORO TIME: 2.8 minutes IMAGE COUNT: 0 MEDICAL HISTORY : None. SURGICAL HISTORY : Cholecystectomy. Gasrtic sleeve. ENCOUNTER: Initial ACUITY: 1 day PAIN SCORE: 0/10 LOCATION: NG tube placement. FINDINGS: Under fluoroscopic guidance, attempt was made to place a standard size nasogastric tube. The nasogast felicity tube was advanced into the proximal stomach but sentinel hole could never be advanced beyond the GE junction. Attempts were made to inject a small amount of contrast material. However, this was unsu ccessful. Patient developed moderate mucosal irritation bleeding during the procedure. CONCLUSION: Unsuccessful placement of a nasogastric tube under fluoroscopic guidance. The distal aspect of the tu be reached the proximal stomach but could never be fully advanced into the stomach. Aggressive attemp ts were not made since the patient is post recent surgery. Patient also developed nasopharyngeal muco valery irritation bleeding during the procedure. Patient wished to a stop and not reattempt placement. Damian Bedolla MD on August 29, 2017 at 18:05 Board Certified Radiologist. This report was verified electronically.
[2017-08-29 20:00] VITALS: BP 127/65; PULSE 91; RESP 17; TEMP 96.9; O2SAT 98
[2017-08-29] MEDS: PANTOPRAZOLE SODIUM 40 MG VIAL IV PUSH SCH (20:27)
[2017-08-30 01:05] VITALS: BP 146/66; PULSE 91; RESP 16; TEMP 98.4; O2SAT 97
[2017-08-30] MEDS: KETOROLAC TROMETHAMINE 30 MG/ML (IVP) VIAL IV PUSH SCH ×4 (01:26→18:00)
[2017-08-30] MEDS: METOCLOPRAMIDE HCL 10 MG/2 ML VIAL IV SCH ×4 (01:26→18:00)
[2017-08-30] MEDS: ONDANSETRON HCL 4 MG/2 ML VIAL IV PUSH PRN (03:46)
[2017-08-30] MEDS: 1/2 NS + KCL 20 MEQ INJ 1,000 ML IV SCH ×2 (06:42→20:32)
[2017-08-30] MEDS: THYROID 60 MG TAB PO SCH (06:42)
[2017-08-30] MEDS: ENOXAPARIN SODIUM 40 MG/0.4 ML SYRINGE SQ SCH (07:52)
[2017-08-30 08:00] VITALS: BP 134/62; PULSE 92; RESP 19; TEMP 97.2; O2SAT 97
--- NOTE | 2017-08-30 08:23 | HHI.PR ---
Subjective Subjective Notes Nausea a little improved. Still bringing up small amounts of bile. Radiology was unable to advance NGT Objective Vitals/I&O Vital Signs Date Time Temp Pulse Resp B/P (MAP) Pulse Ox O2 Delivery O2 Flow Rate FiO2 08/30/17 07:43 18 08/30/17 01:05 98.4 91 146/66 (92) 97 Labs Laboratory Tests Test 08/29/17 06:55 White Blood Count 9.0 TH/MM3 Red Blood Count 3.45 MIL/MM3 Hemoglobin 10.8 GM/DL Hematocrit 31.7 % Mean Corpuscular Volume 92.1 FL Mean Corpuscular Hemoglobin 31.4 PG Mean Corpuscular Hemoglobin Concent 34.0 % Red Cell Distribution Width 14.9 % Platelet Count 279 TH/MM3 Mean Platelet Volume 7.9 FL Neutrophils (%) (Auto) 69.0 % Lymphocytes (%) (Auto) 15.1 % Monocytes (%) (Auto) 14.1 % Eosinophils (%) (Auto) 1.7 % Basophils (%) (Auto) 0.1 % Neutrophils # (Auto) 6.2 TH/MM3 Lymphocytes # (Auto) 1.4 TH/MM3 Monocytes # (Auto) 1.3 TH/MM3 Eosinophils # (Auto) 0.2 TH/MM3 Basophils # (Auto) 0.0 TH/MM3 CBC Comment AUTO DIFF Differential Total Cells Counted 100 Neutrophils % (Manual) 55 % Band Neutrophils % 16 % Lymphocytes % 7 % Monocytes % 17 % Eosinophils % 2 % Neutrophils # (Manual) 6.7 TH/MM3 Metamyelocytes 1 % Myelocytes 2 % Nucleated Red Blood Cells 1 /100 WBC Differential Comment FINAL DIFF MANUAL Platelet Estimate NORMAL Platelet Morphology Comment NORMAL Red Cell Morphology Comment NORMAL Blood Urea Nitrogen 29 MG/DL Creatinine 0.66 MG/DL Random Glucose 124 MG/DL Calcium Level 8.5 MG/DL Phosphorus Level 4.1 MG/DL Magnesium Level 2.3 MG/DL Sodium Level 132 MEQ/L Potassium Level 3.8 MEQ/L Chloride Level 96 MEQ/L Carbon Dioxide Level 24.2 MEQ/L Anion Gap 12 MEQ/L Estimat Glomerular Filtration Rate 91 ML/MIN Radiology Last Impressions Tube Placement X-Ray 08/29/17 0000 Signed Impressions: Service Date/Time: Tuesday, August 29, 2017 00:00 - CONCLUSION: Unsuccessful placement of a nasogastric tube under fluoroscopic guidance. The distal aspect of the tube reached the proximal stomach but could never be fully advanced into the stomach. Aggressive attempts were not made since the patient is post recent surgery. Patient also developed nasopharyngeal mucosal irritation bleeding during the procedure. Patient wished to a stop and not reattempt placement. Damian Bedolla MD Cardiovascular: Regular Lungs: Clear Abdomen: Other (intermittent bowel sounds) Extremities: Perfused A/P Assessment and Plan 61yo F with SBO vs Ileus -UGI with SBFT today if tolerated -PT to work with ambulation -Continue IV hydration, if still unable to tolerated PO by tomorrow may consider TPN Discharge Planning D/C depending on hospital course Attending Statement patient seen at bedside ng could not be placed less vomiting some improvement ugi sbft Attestation The exam, history, and the medical decision-making described in the above note were completed with the assistance of the mid-level provider. I reviewed and agree with the findings presented. I attest that I had a [id number] encounter with the patient on the same day, and personally performed and documented my assessment and findings in the medical record. Flower Gomez Aug 30, 2017 08:23 Julian Preciado MD Sep 02, 2017 21:00
[2017-08-30] MEDS: MULTIVITAMIN INJ 10 ML, THIAMINE INJ 100 MG in SODIUM CHLORID 0.9% 500 ML INJ 500 ML IV SCH (08:45)
[2017-08-30] MEDS: levETIRAcetam 250 MG TAB PO SCH ×2 (09:00→20:14)
[2017-08-30] MEDS: VENLAFAXINE HCL XR 75 MG CAP PO SCH (09:00)
[2017-08-30] MEDS: metFORMIN HCL 500 MG TAB PO SCH (09:00)
[2017-08-30] MEDS: SENNOSIDES SYRUP 8.8 MG/5 ML CUP PO SCH (09:00)
[2017-08-30] MEDS: FOLIC ACID 1 MG TAB PO SCH (09:00)
[2017-08-30] MEDS: METHYLPHENIDATE HCL 10 MG EXTENDED RELEASE TAB PO SCH (09:00)
[2017-08-30] MEDS: CHOLECALCIFEROL (VIT D3) 5000 UNIT CAP PO SCH (09:00)
[2017-08-30] MEDS: ALLOPURINOL 100 MG TAB PO SCH (09:00)
[2017-08-30] MEDS: amLODIPine BESYLATE 5 MG TAB PO SCH (09:00)
[2017-08-30] MEDS: PANTOPRAZOLE SODIUM 40 MG VIAL IV PUSH SCH ×2 (09:15→20:13)
[2017-08-30] MEDS ORDERED: DIATRIZOATE MEGLUM/DIATRIZOATE SOD 120 ML BTL (for RAD DIAG) PO ONE (10:45)
[2017-08-30 13:54] VITALS: BP 145/85; PULSE 96; RESP 18; TEMP 97.3; O2SAT 98
[2017-08-30 16:00] VITALS: BP 113/56; PULSE 93; RESP 17; TEMP 98.1; O2SAT 97
--- NOTE | 2017-08-30 18:04 | RADRPT ---
EXAM DATE/TIME: 08/30/2017 10:41 [facility] COMPARISON: No previous studies available for comparison. INDICATIONS : Vomiting post gastric sleeve surgery on 08/23/2017. Inability to keep anything ingested down. FLUORO TIME: 1.7 minutes IMAGE COUNT: 34 CONTRAST: MD Maria IMAGING TIME(S): 15 min, 30 min MEDICAL HISTORY : Hypertension. SURGICAL HISTORY : Cholecystectomy. Gastric sleeve ENCOUNTER: Subsequent ACUITY: 1 week PAIN SCORE: 0/10 LOCATION: Abdomen, upper quadrant. FINDINGS: The foil operator film reveals dilated loops of small bowel in the midabdomen. Patient has the small gastric pouch without leak or extravasation. There is dural peristalsis with G astrografin into the proximal small bowel which is dilated to 6 cm. Contrast does eventually make it into the distal small bowel. On the 4.5 are filmed contrast is seen in the ascending colon. CONCLUSION: Negative for leak Ileus probably small bowel. Gastric pouch appears appropriate. Raghu Mcfarland MD FACR on August 30, 2017 at 17:59 Board Certified Radiologist. This report was verified electronically.
[2017-08-30 20:00] VITALS: BP 133/62; PULSE 87; RESP 17; TEMP 98.3; O2SAT 98
[2017-08-31] VITALS: BP 127/61; PULSE 85; RESP 17; TEMP 98; O2SAT 99
[2017-08-31] MEDS: METOCLOPRAMIDE HCL 10 MG/2 ML VIAL IV SCH ×5 (00:45→21:59)
[2017-08-31] MEDS: KETOROLAC TROMETHAMINE 30 MG/ML (IVP) VIAL IV PUSH SCH ×5 (00:45→21:59)
[2017-08-31] MEDS: THYROID 60 MG TAB PO SCH (06:00)
[2017-08-31] MEDS: 1/2 NS + KCL 20 MEQ INJ 1,000 ML IV SCH (06:22)
[2017-08-31 08:00] VITALS: BP 109/67; PULSE 100; RESP 18; TEMP 95.3; O2SAT 96
[2017-08-31] MEDS: MULTIVITAMIN INJ 10 ML, THIAMINE INJ 100 MG in SODIUM CHLORID 0.9% 500 ML INJ 500 ML IV SCH (08:45)
[2017-08-31] MEDS: ENOXAPARIN SODIUM 40 MG/0.4 ML SYRINGE SQ SCH (08:55)
[2017-08-31] MEDS: PANTOPRAZOLE SODIUM 40 MG VIAL IV PUSH SCH ×2 (08:55→22:04)
[2017-08-31] MEDS: ALLOPURINOL 100 MG TAB PO SCH (09:00)
[2017-08-31] MEDS: metFORMIN HCL 500 MG TAB PO SCH (09:00)
[2017-08-31] MEDS: amLODIPine BESYLATE 5 MG TAB PO SCH (09:00)
[2017-08-31] MEDS: SENNOSIDES SYRUP 8.8 MG/5 ML CUP PO SCH (09:00)
[2017-08-31] MEDS: levETIRAcetam 250 MG TAB PO SCH ×2 (09:00→21:00)
[2017-08-31] MEDS: VENLAFAXINE HCL XR 75 MG CAP PO SCH (09:00)
[2017-08-31] MEDS: CHOLECALCIFEROL (VIT D3) 5000 UNIT CAP PO SCH (09:00)
[2017-08-31] MEDS: FOLIC ACID 1 MG TAB PO SCH (09:00)
[2017-08-31] MEDS: METHYLPHENIDATE HCL 10 MG EXTENDED RELEASE TAB PO SCH (09:00)
--- NOTE | 2017-08-31 09:14 | HHI.PR ---
Subjective Subjective Notes Sitting up in chair, nausea and vomiting mostly resolved. Tolerating clear liquids. States she had 7 BM last night Objective Vitals/I&O Vital Signs Date Time Temp Pulse Resp B/P (MAP) Pulse Ox O2 Delivery O2 Flow Rate FiO2 08/31/17 08:00 95.3 100 18 109/67 (81) 96 Labs Laboratory Tests Test 08/29/17 06:55 08/31/17 07:34 White Blood Count 9.0 TH/MM3 Red Blood Count 3.45 MIL/MM3 Hemoglobin 10.8 GM/DL Hematocrit 31.7 % Mean Corpuscular Volume 92.1 FL Mean Corpuscular Hemoglobin 31.4 PG Mean Corpuscular Hemoglobin Concent 34.0 % Red Cell Distribution Width 14.9 % Platelet Count 279 TH/MM3 Mean Platelet Volume 7.9 FL Neutrophils (%) (Auto) 69.0 % Lymphocytes (%) (Auto) 15.1 % Monocytes (%) (Auto) 14.1 % Eosinophils (%) (Auto) 1.7 % Basophils (%) (Auto) 0.1 % Neutrophils # (Auto) 6.2 TH/MM3 Lymphocytes # (Auto) 1.4 TH/MM3 Monocytes # (Auto) 1.3 TH/MM3 Eosinophils # (Auto) 0.2 TH/MM3 Basophils # (Auto) 0.0 TH/MM3 CBC Comment AUTO DIFF Differential Total Cells Counted 100 Neutrophils % (Manual) 55 % Band Neutrophils % 16 % Lymphocytes % 7 % Monocytes % 17 % Eosinophils % 2 % Neutrophils # (Manual) 6.7 TH/MM3 Metamyelocytes 1 % Myelocytes 2 % Nucleated Red Blood Cells 1 /100 WBC Differential Comment FINAL DIFF MANUAL Platelet Estimate NORMAL Platelet Morphology Comment NORMAL Red Cell Morphology Comment NORMAL Blood Urea Nitrogen 29 MG/DL 25 MG/DL Creatinine 0.66 MG/DL 0.38 MG/DL Random Glucose 124 MG/DL 70 MG/DL Calcium Level 8.5 MG/DL 7.9 MG/DL Phosphorus Level 4.1 MG/DL Magnesium Level 2.3 MG/DL Sodium Level 132 MEQ/L 133 MEQ/L Potassium Level 3.8 MEQ/L 4.5 MEQ/L Chloride Level 96 MEQ/L 102 MEQ/L Carbon Dioxide Level 24.2 MEQ/L 20.5 MEQ/L Anion Gap 11 MEQ/L Estimat Glomerular Filtration Rate 172 ML/MIN Laboratory Tests Test 08/31/17 07:34 Radiology Last Impressions Upper GI and Small Bowel X-Ray 08/30/17 0600 Signed Impressions: Service Date/Time: Wednesday, August 30, 2017 10:41 - CONCLUSION: Negative for leak Ileus probably small bowel. Gastric pouch appears appropriate. Raghu Mcfarland MD FACR Tube Placement X-Ray 08/29/17 0000 Signed Impressions: Service Date/Time: Tuesday, August 29, 2017 00:00 - CONCLUSION: Unsuccessful placement of a nasogastric tube under fluoroscopic guidance. The distal aspect of the tube reached the proximal stomach but could never be fully advanced into the stomach. Aggressive attempts were not made since the patient is post recent surgery. Patient also developed nasopharyngeal mucosal irritation bleeding during the procedure. Patient wished to a stop and not reattempt placement. Damian Bedolla MD Cardiovascular: Regular Lungs: Clear Abdomen: Other (Postive bowel sounds, minimal distention ) Extremities: Perfused Wound Wound : Wound Location: Abdomen (small amount of serous drainage from incision just above umbilicus ) A/P Assessment and Plan 61yo F with Ileus -Tolerating clears, will start using protein shakes to augment nutrition -PT to work with ambulation, patient needs to get out of bed and walk the halls at least QID -Abdominal KUB today Discharge Planning D/C depending on hospital course maybe tomorrow or Monday Attending Statement patient seen at bedside bowel fxn last night appears improving recheck axr Attestation The exam, history, and the medical decision-making described in the above note were completed with the assistance of the mid-level provider. I reviewed and agree with the findings presented. I attest that I had a [id number] encounter with the patient on the same day, and personally performed and documented my assessment and findings in the medical record. Flower Gomez Aug 31, 2017 09:14 Julian Preciado MD Sep 02, 2017 21:06
[2017-08-31 10:03] LABS: BICARBONATE 20.5 MEQ/L (21.0-32.0); POTASSIUM 4.5 MEQ/L (3.5-5.1)
--- NOTE | 2017-08-31 11:11 | RADRPT ---
EXAM DATE/TIME: 08/31/2017 10:11 [facility] COMPARISON: UGI WITH SMALL BOWEL SERIES, August 30, 2017, 10:41. INDICATIONS : Abdominal distention, ileus. MEDICAL HISTORY : Hypertension. SURGICAL HISTORY : Cholecystectomy. Gastric sleeve ENCOUNTER: Subsequent ACUITY: 1 week PAIN SCORE: 0/10 LOCATION: Abdomen. FINDINGS: There are scattered loops of mildly distended small bowel but no residual contrast is noted within th e small bowel. The colon is nondistended and is filled with contrast on today's examination. Findings may represent mild small bowel ileus or possible resolving partial small bowel obstruction. Degenera tive changes and scoliosis of the thoracolumbar spine are noted. CONCLUSION: Scattered loops of mildly distended small bowel but no residual contrast is noted within the small claire wel. The colon is nondistended and is filled with contrast on today's examination. Findings may repre sent mild small bowel ileus or possible resolving partial small bowel obstruction. Darion Oates MD on August 31, 2017 at 11:05 Board Certified Radiologist. This report was verified electronically.
[2017-08-31 12:00] VITALS: BP 118/56; PULSE 80; RESP 18; TEMP 96.3; O2SAT 96
[2017-08-31 16:00] VITALS: BP 131/62; PULSE 88; RESP 18; TEMP 95.5; O2SAT 97
[2017-08-31] MEDS: ceFAZolin 2 GM PREMIX 50 ML IV SCH (17:40)
[2017-08-31 20:00] VITALS: BP 127/60; PULSE 82; RESP 18; TEMP 97.1; O2SAT 98
[2017-08-31] MEDS: REMOVE OLD PATCH T-DERMAL SCH (20:00)
[2017-08-31] MEDS: SCOPOLAMINE 1.5 MG PATCH T-DERMAL SCH (20:00)
[2017-08-31] MEDS: ONDANSETRON HCL 4 MG/2 ML VIAL IV PUSH PRN (22:22)
[2017-09-01] VITALS: BP 145/62; PULSE 88; RESP 20; TEMP 98.5; O2SAT 96
[2017-09-01] MEDS ORDERED: ALUMINUM/MAGNESIUM/SIMETH 30 ML CUP PO ONE (00:15)
[2017-09-01] MEDS ORDERED: TEMAZEPAM 15 MG CAP PO ONE (00:15)
[2017-09-01 04:00] VITALS: BP 121/62; PULSE 84; RESP 20; TEMP 98.2; O2SAT 99
[2017-09-01] MEDS: ceFAZolin 2 GM PREMIX 50 ML IV SCH ×2 (04:04→08:50)
[2017-09-01] MEDS: THYROID 60 MG TAB PO SCH (04:46)
[2017-09-01] MEDS: METOCLOPRAMIDE HCL 10 MG/2 ML VIAL IV SCH ×2 (04:57→12:00)
[2017-09-01] MEDS: KETOROLAC TROMETHAMINE 30 MG/ML (IVP) VIAL IV PUSH SCH ×2 (04:57→12:01)
[2017-09-01 08:00] VITALS: BP 136/62; PULSE 89; RESP 19; TEMP 98.5; O2SAT 100
[2017-09-01] MEDS: MULTIVITAMIN INJ 10 ML, THIAMINE INJ 100 MG in SODIUM CHLORID 0.9% 500 ML INJ 500 ML IV SCH (08:50)
[2017-09-01] MEDS: PANTOPRAZOLE SODIUM 40 MG VIAL IV PUSH SCH (08:51)
[2017-09-01] MEDS: ENOXAPARIN SODIUM 40 MG/0.4 ML SYRINGE SQ SCH (08:51)
[2017-09-01] MEDS: metFORMIN HCL 500 MG TAB PO SCH (08:54)
[2017-09-01] MEDS: levETIRAcetam 250 MG TAB PO SCH (08:54)
[2017-09-01] MEDS: FOLIC ACID 1 MG TAB PO SCH (08:54)
[2017-09-01] MEDS: METHYLPHENIDATE HCL 10 MG EXTENDED RELEASE TAB PO SCH (08:54)
[2017-09-01] MEDS: VENLAFAXINE HCL XR 75 MG CAP PO SCH (08:54)
[2017-09-01] MEDS: SENNOSIDES SYRUP 8.8 MG/5 ML CUP PO SCH (08:55)
[2017-09-01] MEDS: ALLOPURINOL 100 MG TAB PO SCH (08:55)
[2017-09-01] MEDS: amLODIPine BESYLATE 5 MG TAB PO SCH (08:55)
[2017-09-01] MEDS: CHOLECALCIFEROL (VIT D3) 5000 UNIT CAP PO SCH (08:55)
[2017-09-01 12:00] VITALS: BP 130/65; PULSE 89; RESP 18; TEMP 97.1; O2SAT 99
--- NOTE | 2017-09-01 13:07 | HHI.FF ---
Face to Face Verification Diagnosis: (1) Ileus following gastrointestinal surgery (2) Physical deconditioning Physical Therapy Order: Evaluate and Treat, Improve ambulation, Strength and gait training I have seen patient Nicolle Ramirez on 09/01/17. My clinical findings support the need for the requested home health care services because: Deconditioned w/ increased weakness I certify that my clinical findings support that this patient is homebound because: Post-op weakness Flower Gomez Sep 01, 2017 13:07
[2017-09-01] MEDS ORDERED: WALKER WHEELS/F1 MIS (13:10)
[2017-09-01] MEDS ORDERED: BATH/SHOWER SEA1 MI1 (13:11)
--- NOTE | 2017-09-01 13:21 | HHI.DS ---
Discharge Summary Admission Date Aug 28, 2017 at 17:00 Discharge Date: Sep 01, 2017 Admitting Diagnosis Small bowel obstruction vs. Ileus Brief History 61yo female who underwent elective laparoscopic sleeve gastrectomy on 08/23/17. Her hospital course was complicated by persistent nausea which required her to stay an extra night. The patient reports that initially her nausea was better but by Monday night she started having uncontrolled nausea. She was unable to keep down fluids and medications. She underwent an abdominal CT in an outside facility which revealed moderate dilated loops of the small bowel, suggesting possible obstruction. She was then admitted to the hospital for IV antiemetics and hydration. CBC/BMP: 08/29/17 0655 08/31/17 0734 Significant Findings Laboratory Tests Test 08/31/17 07:34 Blood Urea Nitrogen 25 MG/DL (7-18) Creatinine 0.38 MG/DL (0.50-1.00) Random Glucose 70 MG/DL (74-106) Calcium Level 7.9 MG/DL (8.5-10.1) Sodium Level 133 MEQ/L (136-145) Carbon Dioxide Level 20.5 MEQ/L (21.0-32.0) Imaging Last Impressions Abdomen X-Ray 08/31/17 0000 Signed Impressions: Service Date/Time: August 10:11 - CONCLUSION: Scattered loops of mildly distended small bowel but no residual contrast is noted within the small bowel. The colon is nondistended and is filled with contrast on today's examination. Findings may represent mild small bowel ileus or possible resolving partial small bowel obstruction. Darion Oates MD Upper GI and Small Bowel X-Ray 08/30/17 0600 Signed Impressions: Service Date/Time: Wednesday, August 30, 2017 10:41 - CONCLUSION: Negative for leak Ileus probably small bowel. Gastric pouch appears appropriate. Raghu Mcfarland MD FACR Tube Placement X-Ray 08/29/17 0000 Signed Impressions: Service Date/Time: Tuesday, August 29, 2017 00:00 - CONCLUSION: Unsuccessful placement of a nasogastric tube under fluoroscopic guidance. The distal aspect of the tube reached the proximal stomach but could never be fully advanced into the stomach. Aggressive attempts were not made since the patient is post recent surgery. Patient also developed nasopharyngeal mucosal irritation bleeding during the procedure. Patient wished to a stop and not reattempt placement. Damian Bedolla MD PE at Discharge SKIN: Warm and dry. HEAD: Atraumatic. Normocephalic. NECK: Trachea midline. No JVD. CARDIOVASCULAR: Regular rate and rhythm. RESPIRATORY: No accessory muscle use. Clear to auscultation. Breath sounds equal bilaterally. GASTROINTESTINAL: Abdomen soft, non-tender, small amount of serous drainage from incision just above umbilicus MUSCULOSKELETAL: Extremities without clubbing, cyanosis, or edema. No obvious deformities. NEUROLOGICAL: Awake and alert. No obvious cranial nerve deficits. PSYCHIATRIC: Appropriate mood and affect; insight and judgment normal. Hospital Course The patient was admitted for persistent nausea and vomiting. Outside CT should possible small bowel obstruction. She was placed on IVF and given nausea medication. NGT placed via fluoroscopy was unsuccessful by radiology. The patient slowly improved with bowel rest and medical management. She was discharged home tolerating full liquids with home health physical therapy. Pt Condition on Discharge: Stable Discharge Disposition: Disch w/ Home Health Serv Discharge Instructions DIET: Follow Instructions for: Full Liquid Diet Activities you can perform: Shower Only-No Bath Activities to Avoid: Strenuous Activity Follow up Referrals: Surgical - 09/04/17 @ [facility] with Husam Hernandez MD New Orders: Physical Therapy - 2 Weeks New Medications: Bath/Shower Seat with Hubert (Bath/Shower Seat with Hubert) 1 Mis Mis EA .ROUTE DIRECTED, #1 Walker with Front Wheels (Walker with Front Wheels) 1 Mis Mis EA .ROUTE DIRECTED, #1 0 Refills Continued Medications: Allopurinol (Allopurinol) 100 Mg Tab 2 TAB PO DAILY for Gout, TAB 0 Refills Amlodipine (Amlodipine) 2.5 Mg Tab 2.5 MG PO DAILY for Blood Pressure Management, TAB 0 Refills Cholecalciferol (Vitamin D3) 5,000 Unit Cap 5000 UNITS PO DAILY for Nutritional Supplement, CAP 0 Refills Estradiol Topical (Estrogel Topical) 0.06% Gel 1 GM VAGINAL WEEKLY Fish Oil-Cholecalciferol ([place]-3 Fish Oil/Vitamin) 1,000-1,000 Mg Cap 1 CAP PO DAILY for Nutritional Supplement, CAP 0 Refills Levetiracetam (Levetiracetam) 250 Mg Tab 250 MG PO BID for Control Seizures, TAB 0 Refills Metformin (Metformin) 500 Mg Tab 250 MG PO DAILY for Blood Sugar Management, TAB 0 Refills With a meal Methylphenidate ER 24 HR (Methylphenidate ER 24 HR) 20 Mg Caper 20 MG PO DAILY for Attention Deficit Disorder, CAP 0 Refills Promethazine (Phenergan) 25 Mg Tablet 25 MG PO Q6H PRN for NAUSEA OR VOMITING, #16 TAB 0 Refills Thyroid ([place] Thyroid) 120 Mg Tab 120 MG PO DAILY for Thyroid Supplement, TAB 0 Refills Venlafaxine ER 24 HR (Venlafaxine ER 24 HR) 75 Mg Cap 75 MG PO DAILY, CAP 0 Refills Discontinued Medications: Meloxicam (Meloxicam) 15 Mg Tab 15 MG PO DAILY for Arthritis Pain, TAB 0 Refills Progesterone Micronized (Progesterone Micronized) 100 Mg Cap 100 MG PO HS, CAP 0 Refills Triamterene-Hydrochlorothiazide (Triamterene-Hydrochlorothiazide) 50-25 Mg Cap 1 CAP PO DAILY, CAP 0 Refills Flower Gomez [facility] Sep 01, 2017 13:21
[2017-09-01 14:24] LABS: BICARBONATE 22.9 MEQ/L (21.0-32.0); POTASSIUM 4.6 MEQ/L (3.5-5.1)
== END 2017-09-01 15:51 | disposition home or self-care (01) | DRG 390 ==
LOC: N07A 17:00
PROVIDERS: ADMIT Surgery; ATTEND Surgery
DX: K56.7 Ileus, unspecified (principal); F32.9 Major depressive disorder, single episode, unspecified; E03.9 Hypothyroidism, unspecified; M06.9 Rheumatoid arthritis, unspecified; G40.909 Epilepsy, unspecified, not intractable, without status epilepticus; M10.9 Gout, unspecified; F98.8 Other specified behavioral and emotional disorders with onset usually occurring in childhood and adolescence; Z88.5 Allergy status to narcotic agent; Z98.84 Bariatric surgery status
CPT/HCPCS: 43752; 74000; 74245; 76937; 80048; 83735; 84100; 84425; 85007; 85027; 94150; C9113; J0690; J1453; J1650; J1885; J2405; J2765; J3411; J7040; Q9963

== ENCOUNTER 2017-09-07 09:13 | Inpatient (IN) | payer OTHER ==
[~2017-09-07] VITALS: Ht 170.2 cm; Wt 177.3 kg
[~2017-09-07 09:13] MED LIST changes: +BATH/SHOWER SEA1 MI1; -MELO15TA20 PO; -PROG100C PO; -TRIA1CAP PO; +WALKER WHEELS/F1 MIS
[2017-09-07 09:15] VITALS: BP 175/93; PULSE 97; RESP 18; TEMP 98.1; O2SAT 100
[2017-09-07 09:39] VITALS: BP 169/84; PULSE 93; RESP 18; O2SAT 98
[2017-09-07] MEDS ORDERED: PROT40TA PO (09:39)
--- NOTE | 2017-09-07 09:44 | PD ---
HPI Chief Complaint: GI Complaint Time Seen by Provider: 09:26 Travel History International Travel<30 days: No Contact w/Intl Traveler<30days: No Traveled to known affect area: No History of Present Illness HPI 61 y/o female presents with nonbloody emesis and unable to have a bowel movement for a couple days. She states to get that bowel movement she had a use a glycerin suppository and it was just loose. She states she saw Dr. Epstein on Monday and the advanced her to a pured diet and she has been doing worse since then and cannot even keep down water now. She denies any other concurrent complaints. Quality is nonbloody. Severity is multiple episodes. She denies modifying factors. She confirms recent hospitalization and surgery PFSH Past Medical History Arthritis: Yes Asthma: No Autoimmune Disease: Yes (Polymyalgia Rheumatica) Anxiety: No Depression: Yes Heart Rhythm Problems: No Cancer: No Cardiovascular Problems: No High Cholesterol: No Chest Pain: Yes (Pt. had workup in 2014) Congestive Heart Failure: No COPD: No Cerebrovascular Accident: No Diabetes: No Diminished Hearing: No Endocrine: Yes Gastrointestinal Disorders: Yes (Gastric sleeve 08-22-17) GERD: No Genitourinary: No Headaches: No Hepatitis: No Hiatal Hernia: No Hypertension: No Immune Disorder: No Kidney Stones: No Medical other: Yes (SLEEP APNEA, USES CPAP) Musculoskeletal: Yes Neurologic: No Psychiatric: No Reproductive: No Respiratory: Yes Integumentary: Yes (FATTY TUMOR IN LEFT LEG REMOVED) Immunizations Current: Yes Migraines: No Renal Failure: No Sleep Apnea: Yes (Diagnosed with minimal sleep apnea. Pt. wears cpap at home) Thyroid Disease: No Ulcer: No Menopausal: Yes Dilation and Curettage (D&C): Yes Past Surgical History Abdominal Surgery: Yes (Gallbladder removal with subsequent infection, gastric sleeve 08-22-17) AICD: No Arteriovenous Shunt: No Cardiac Surgery: No Ear Surgery: No Endocrine Surgery: No Eye Surgery: Yes (Left retinal tear X2, did laser surgery ) Genitourinary Surgery: No Gynecologic Surgery: Yes (D & C in 2014) Insulin Pump: No Joint Replacement: Yes (Left ankle repair) Neurologic Surgery: No Oral Surgery: No Pacemaker: No Thoracic Surgery: No Tonsillectomy: Yes (AND ADDENOIDS) Other Surgery: Yes Social History Alcohol Use: Yes (RARELY) Tobacco Use: No Substance Use: No Allergies-Medications (Allergen,Severity, Reaction): Coded Allergies: propoxyphene (Unverified Allergy, Intermediate, HALLUCINATIONS, 08/23/17) Uncoded Allergies: ADHESIVE TAPE (Allergy, Intermediate, PULLS SKIN OFF, 09/20/13) DARVOCET-HALLUCINATIONS; (Allergy, Unknown, 06/24/03) Reported Meds & Prescriptions Reported Meds & Active Scripts Active Bath/Shower Seat with Hubert (Device) 1 Mis Mis Ea .ROUTE DIRECTED Walker with Front Wheels (Device) 1 Mis Mis Ea .ROUTE DIRECTED Phenergan (Promethazine HCl) 25 Mg Tablet 25 Mg PO Q6H PRN Reported Protonix (Pantoprazole Sodium) 40 Mg Tab 40 Mg PO DAILY Metformin (Metformin HCl) 500 Mg Tab 250 Mg PO DAILY With a meal Venlafaxine ER 24 HR (Venlafaxine HCl) 75 Mg Cap 75 Mg PO DAILY Allopurinol 100 Mg Tab 2 Tab PO DAILY [place] Thyroid (Thyroid) 120 Mg Tab 120 Mg PO DAILY Levetiracetam 250 Mg Tab 250 Mg PO BID Methylphenidate ER 24 HR (Methylphenidate HCl) 20 Mg Caper 20 Mg PO DAILY Amlodipine (Amlodipine Besylate) 2.5 Mg Tab 2.5 Mg PO DAILY [place]-3 Fish Oil/Vitamin (Fish Oil-Cholecalciferol) 1,000-1,000 Mg Cap 1 Cap PO DAILY Estrogel Topical (Estradiol) 0.06% Gel 1 Gm VAGINAL WEEKLY Vitamin D3 (Cholecalciferol) 5,000 Unit Cap 5,000 Units PO DAILY Review of Systems Except as stated in HPI: all other systems reviewed are Neg Physical Exam Narrative GENERAL: Well-nourished, well-developed patient. well appearing SKIN: Warm and dry. HEAD: Normocephalic and atraumatic. EYES: No injection or drainage. ENT: No nasal drainage noted. NECK: Supple, trachea midline. CARDIOVASCULAR: Regular rate and rhythm RESPIRATORY: Breath sounds equal bilaterally. No accessory muscle use. GASTROINTESTINAL: Abdomen soft, mild tender diffusely, clear drainage from periumbilical trochar site NEUROLOGICAL: Awake. Motor and sensory grossly within normal limits. Normal speech. Data Data Last Documented VS Vital Signs Date Time Temp Pulse Resp B/P (MAP) Pulse Ox O2 Delivery O2 Flow Rate FiO2 09/07/17 11:23 18 98 Room Air 09/07/17 09:39 93 09/07/17 09:15 98.1 Orders Orders Complete Blood Count With Diff (09/07/17 09:33) Comprehensive Metabolic Panel (09/07/17 09:33) Urinalysis - C+S If Indicated (09/07/17 09:33) Lipase (09/07/17 09:33) Ct Abd/Pel W Iv Contrast(Rout) (09/07/17 ) Iv Access Insert/Monitor (09/07/17 09:33) Oximetry (09/07/17 09:33) Ondansetron Inj (Zofran Inj) (09/07/17 09:45) Sodium Chlorid 0.9% 500 Ml Inj (Ns 500 M (09/07/17 09:45) Oral Contrast - Adult (09/07/17 09:40) Diatrizoate Liq ( Gastroview Liq) (09/07/17 10:39) Promethazine Inj (Phenergan Inj) (09/07/17 11:30) Vascular Access Team Consult/P PRN (09/07/17 11:32) Vascular Poc Ultrasound (09/07/17 ) Iohexol 350 Inj (Omnipaque 350 Inj) (09/07/17 12:47) Admit Order (Ed Use Only) (09/07/17 13:44) Invasive Rad Dept Consult (09/07/17 ) Labs Laboratory Tests Test 09/07/17 10:31 White Blood Count 13.5 TH/MM3 Red Blood Count 3.59 MIL/MM3 Hemoglobin 10.6 GM/DL Hematocrit 33.2 % Mean Corpuscular Volume 92.5 FL Mean Corpuscular Hemoglobin 29.6 PG Mean Corpuscular Hemoglobin Concent 32.0 % Red Cell Distribution Width 15.3 % Platelet Count 608 TH/MM3 Mean Platelet Volume 7.0 FL Neutrophils (%) (Auto) 79.7 % Lymphocytes (%) (Auto) 11.6 % Monocytes (%) (Auto) 7.8 % Eosinophils (%) (Auto) 0.6 % Basophils (%) (Auto) 0.3 % Neutrophils # (Auto) 10.8 TH/MM3 Lymphocytes # (Auto) 1.6 TH/MM3 Monocytes # (Auto) 1.1 TH/MM3 Eosinophils # (Auto) 0.1 TH/MM3 Basophils # (Auto) 0.0 TH/MM3 CBC Comment AUTO DIFF Differential Total Cells Counted 100 Neutrophils % (Manual) 70 % Band Neutrophils % 14 % Lymphocytes % 4 % Monocytes % 10 % Eosinophils % 1 % Neutrophils # (Manual) 11.5 TH/MM3 Metamyelocytes 1 % Differential Comment FINAL DIFF MANUAL Platelet Estimate HIGH Platelet Morphology Comment NORMAL Red Cell Morphology Comment NORMAL Blood Urea Nitrogen 15 MG/DL Creatinine 0.46 MG/DL Random Glucose 106 MG/DL Total Protein 6.7 GM/DL Albumin 2.5 GM/DL Calcium Level 8.5 MG/DL Alkaline Phosphatase 138 U/L Aspartate Amino Transf (AST/SGOT) 29 U/L Alanine Aminotransferase (ALT/SGPT) 36 U/L Total Bilirubin 0.5 MG/DL Sodium Level 134 MEQ/L Potassium Level 3.7 MEQ/L Chloride Level 94 MEQ/L Carbon Dioxide Level 28.5 MEQ/L Anion Gap 12 MEQ/L Estimat Glomerular Filtration Rate 138 ML/MIN Lipase 170 U/L MDM Medical Decision Making Medical Screen Exam Complete: Yes Emergency Medical Condition: Yes Medical Record Reviewed: Yes (pmh confirmed) Interpretation(s) CBC & BMP Diagram 09/07/17 10:31 Total Protein 6.7, Albumin 2.5 L, Calcium Level 8.5, Alkaline Phosphatase 138 H , Aspartate Amino Transf (AST/SGOT) 29, Alanine Aminotransferase (ALT/SGPT) 36, Total Bilirubin 0.5 Last 24 hours Impressions Abdomen/Pelvis CT 09/07/17 0000 Signed Impressions: Service Date/Time: August 12:20 - CONCLUSION: 1. Small bowel obstruction with transition point in the lower abdomen adjacent to an area of indurated mesentery. 2. Marked dilation of the intrahepatic biliary system , up to 2.2 cm, and some mild distention of the intrahepatic biliary system. Differential considerations include a distal biliary obstruction and reservoir effect from prior cholecystectomy. Tae Schulz MD Differential Diagnosis obstruction, post op pain, renal failure.... Narrative Course will check labs, ua, ct abdomen and dose with ivf and zofran and reevaluate ED workup with small bowel obstruction. We'll discuss with her surgeon Patient updated and agrees to admission Physician Communication Physician Communication dr codie orta to admit to his service and discuss with radiology for ng placement dr mirza states will discuss with dr zeus schulz tells me he doesn't feel comfortable placing ng, I discussed with dr mackay who was given dr schulz cell to talk with him dr schulz states after talking with dr mackay he will place ng Diagnosis Primary Impression: Small bowel obstruction Admitting Information Admitting Physician Requests: Admit Rukhsana Carter MD Sep 07, 2017 09:44
[2017-09-07] MEDS ORDERED: ONDANSETRON HCL 4 MG/2 ML VIAL IV PUSH ONE ×2 (09:45→14:45)
[2017-09-07] MEDS ORDERED: SODIUM CHLORID 0.9% 500 ML INJ 500 ML IV ONE (09:45)
[2017-09-07] MEDS ORDERED: DIATRIZOATE MEGLUM/DIATRIZOATE SOD 9 ML CUP ONE (10:39)
[2017-09-07 10:51] LABS: AUTOMATED NEUTROPHIL # 10.8 TH/MM3 (1.8-7.7); BASOPHIL % 0.3 % (0.0-2.0); EOSINOPHIL # 0.1 TH/MM3 (0-0.4); EOSINOPHIL % 0.6 % (0.0-4.0); HEMATOCRIT 33.2 % (35.0-46.0); LYMPH % 11.6 % (9.0-44.0); LYMPHOCYTE # 1.6 TH/MM3 (1.0-4.8); MEAN CELL VOLUME 92.5 FL (80.0-100.0); MEAN CORPUSCULAR HEMOGLOBIN 29.6 PG (27.0-34.0); MONO % 7.8 % (0.0-8.0); NEUT % 79.7 % (16.0-70.0); PLATELET COUNT 608 TH/MM3 (150-450); RED BLOOD COUNT 3.59 MIL/MM3 (4.00-5.30); RED CELL DISTRIBUTION WIDTH 15.3 % (11.6-17.2); WHITE BLOOD COUNT 13.5 TH/MM3 (4.0-11.0)
[2017-09-07 10:54] LABS: HEMO FLAGS AUTO DIFF
[2017-09-07 11:11] LABS: ANION GAP 12 MEQ/L (5-15); AST (GOT) 29 U/L (15-37); BICARBONATE 28.5 MEQ/L (21.0-32.0); BLOOD UREA NITROGEN 15 MG/DL (7-18); CHLORIDE 94 MEQ/L (98-107); GLOMERULAR FILTRATION RATE 138 ML/MIN (>89); POTASSIUM 3.7 MEQ/L (3.5-5.1); SODIUM (NA) 134 MEQ/L (136-145)
[2017-09-07 11:13] LABS: ALT (GPT) 36 U/L (10-53)
[2017-09-07 11:14] LABS: ALKALINE PHOSPHATASE 138 U/L (45-117); TOTAL BILIRUBIN ADULT 0.5 MG/DL (0.2-1.0)
[2017-09-07 11:23] VITALS: RESP 18; O2SAT 98
[2017-09-07 11:28] LABS: BANDS 14 % (0-6); EOSINOPHILS 1 % (0-4); METAMYELOCYTES 1 % (0-1); NEUTROPHIL # MANUAL DIFF 11.5 TH/MM3 (1.8-7.7); POLYS (SEG NEUTROPHILS) 70 % (16-70); WBC DIFF SAMPLE 100
[2017-09-07 11:29] LABS: PLATELET ESTIMATE SMEAR HIGH (NORMAL); PLATELET MORPHOLOGY NORMAL (NORMAL); SCAN/DIFF FINAL DIFF MANUAL
[2017-09-07] MEDS ORDERED: PROMETHAZINE INJ 25 MG/ML VIAL IM ONE (11:30)
[2017-09-07] MEDS ORDERED: IOHEXOL 350 MG/ML 10 ML VIAL (for RAD DIAG) IVCONTRAST ONE (12:47)
--- NOTE | 2017-09-07 13:22 | RADRPT ---
EXAM DATE/TIME: 09/07/2017 12:20 [facility] COMPARISON: CT ABDOMEN & PELVIS W/O CONTRAST, August 25, 2017, 18:59. INDICATIONS : Nausea, 2 weeks post op gastric sleeve IV CONTRAST: 93 cc Omnipaque 350 (iohexol) IV ORAL CONTRAST: Partial prescribed oral contrast ingested. RADIATION DOSE: 39.53 CTDIvol (mGy) MEDICAL HISTORY : Rheumatoid arthritis. Seizures. SURGICAL HISTORY : Cholecystectomy. gastric sleeve ENCOUNTER: Initial ACUITY: 1 day PAIN SCALE: 0/10 LOCATION: abdomen TECHNIQUE: Volumetric scanning of the abdomen and pelvis was performed. Using automated exposure control and ad justment of the mA and/or kV according to patient size, radiation dose was kept as low as reasonably achievable to obtain optimal diagnostic quality images. DICOM format image data is available electro nically for review and comparison. FINDINGS: Prior CT on 08/25/17 had demonstrated induration of the central mesentery. On today's examination, t here is persistent induration of the central mesentery and engorgement of several mesenteric vessels. There is also been a significant change in appearance of small bowel loops, with marked distention of small bowel proximal to the area of indurated mesentery; small bowel loops measure up to 7.1 cm an d there are several air-fluid levels. The distal small bowel, located inferior and to the right of t he end indurated mesentery, is nondistended, suggesting that there is a discrete point of obstruction . No evidence of free intraperitoneal gas or intraperitoneal fluid. The visualized lower lungs are lalito ar. Gastric sleeve anastomosis along the greater curvature. Mild dilation of the intra-and extrahep atic biliary system with the common hepatic duct measuring 2.2 cm. Cholecystectomy. The spleen, parr creas, kidneys, aorta, uterus, bladder, and inguinal regions are unremarkable. Osseous structures ar e grossly intact. CONCLUSION: 1. Small bowel obstruction with transition point in the lower abdomen adjacent to an area of indura elizabeth mesentery. 2. Marked dilation of the intrahepatic biliary system, up to 2.2 cm, and some mild distention of th e intrahepatic biliary system. Differential considerations include a distal biliary obstruction and reservoir effect from prior cholecystectomy. Tae Roblero MD on September 07, 2017 at 13:14 Board Certified Radiologist. This report was verified electronically.
[2017-09-07 14:36] VITALS: BP 149/84; PULSE 79; RESP 18; O2SAT 98
[2017-09-07] MEDS ORDERED: LIDOCAINE 2% JELLY 30 ML TUBE TOPICAL ONE (15:00)
[2017-09-07] MEDS: MORPHINE SULFATE 2 MG/ML INJ IV PUSH PRN ×2 (15:41→22:53)
[2017-09-07] MEDS ORDERED: ONDANSETRON HCL 4 MG/2 ML VIAL IV PUSH PRN (17:45)
[2017-09-07] MEDS ORDERED: SCOPOLAMINE 1.5 MG PATCH T-DERMAL SCH (18:00)
[2017-09-07] MEDS ORDERED: REMOVE OLD PATCH T-DERMAL SCH (18:00)
[2017-09-07] MEDS: D5-1/2 NS + KCL 20 MEQ INJ 1,000 ML IV SCH (18:38)
[2017-09-07 20:00] VITALS: BP 139/83; PULSE 94; RESP 18; TEMP 98.2; O2SAT 96
[2017-09-07] MEDS: ENOXAPARIN SODIUM 40 MG/0.4 ML SYRINGE SQ SCH (20:14)
[2017-09-08] VITALS: BP 160/82; PULSE 91; RESP 18; TEMP 97.9; O2SAT 96
[2017-09-08] MEDS: D5-1/2 NS + KCL 20 MEQ INJ 1,000 ML IV SCH (01:45)
[2017-09-08 05:11] LABS: AUTOMATED NEUTROPHIL # 7.1 TH/MM3 (1.8-7.7); BASOPHIL # 0.1 TH/MM3 (0-0.2); BASOPHIL % 1.2 % (0.0-2.0); EOSINOPHIL # 0.2 TH/MM3 (0-0.4); EOSINOPHIL % 1.5 % (0.0-4.0); HEMATOCRIT 29.9 % (35.0-46.0); HEMO FLAGS DIFF FINAL; LYMPH % 21.3 % (9.0-44.0); LYMPHOCYTE # 2.2 TH/MM3 (1.0-4.8); MEAN CELL VOLUME 91.7 FL (80.0-100.0); MEAN CORPUSCULAR HEMOGLOBIN 31.7 PG (27.0-34.0); MEAN CORPUSCULAR HGB CONC 34.6 % (32.0-36.0); MONO % 9.1 % (0.0-8.0); NEUT % 66.9 % (16.0-70.0); PLATELET COUNT 528 TH/MM3 (150-450); RED BLOOD COUNT 3.27 MIL/MM3 (4.00-5.30); RED CELL DISTRIBUTION WIDTH 15.2 % (11.6-17.2); WHITE BLOOD COUNT 10.6 TH/MM3 (4.0-11.0)
[2017-09-08 05:37] LABS: MAGNESIUM 1.7 MG/DL (1.5-2.5); POTASSIUM 3.2 MEQ/L (3.5-5.1)
[2017-09-08 08:00] VITALS: BP 130/67; PULSE 83; RESP 17; TEMP 97.3; O2SAT 95
[2017-09-08] MEDS: ENOXAPARIN SODIUM 40 MG/0.4 ML SYRINGE SQ SCH (08:58)
[2017-09-08] MEDS: PANTOPRAZOLE SODIUM 40 MG VIAL IV PUSH SCH (08:58)
[2017-09-08] MEDS ORDERED: LORazepam 2 MG/ML VIAL ONE (11:00)
[2017-09-08] MEDS ORDERED: BUPIVACAINE/EPINEPHRINE 0.25% PF 30 ML VIAL ONE (11:50)
[2017-09-08] MEDS ORDERED: LACTATED RINGER'S 1000 ML INJ 4,000 ML IV ONE (12:00)
[2017-09-08] MEDS ORDERED: MIDAZOLAM HCL 2 MG/2 ML VIAL IV ONE (12:00)
[2017-09-08] MEDS ORDERED: SUCCINYLCHOLINE CHLORIDE 100 MG/5 ML SYRINGE IV PUSH ONE (12:00)
[2017-09-08] MEDS ORDERED: SODIUM CHLOR 0.9% 250 ML INJ 500 ML IV ONE (12:00)
[2017-09-08] MEDS ORDERED: SODIUM CHLORIDE 0.9% 20 ML VIAL IV ONE (12:00)
[2017-09-08] MEDS ORDERED: PHENYLEPHRINE HCL 10 MG/ML VIAL IV ONE (12:00)
[2017-09-08] MEDS ORDERED: LIDOCAINE HCL 1% PF 5 ML SYRINGE OTHER ONE (12:00)
[2017-09-08] MEDS ORDERED: ROCURONIUM INJ 50 MG/5 ML SYRINGE IV PUSH ONE (12:00)
[2017-09-08] MEDS ORDERED: ePHEDrine/NS 25 MG/5 ML SYRINGE IV ONE (12:00)
[2017-09-08] MEDS ORDERED: PROPOFOL 200 MG/20 ML AMP IV ONE (12:00)
[2017-09-08] MEDS ORDERED: VECURONIUM BROMIDE 20 MG VIAL IV ONE (12:00)
[2017-09-08] MEDS ORDERED: PHENYLEPH/NS 1000 MCG/10 ML SYR IV ONE (12:00)
[2017-09-08] MEDS ORDERED: ESMOLOL HCL 100 MG/10 ML VIAL IV ONE (12:00)
--- NOTE | 2017-09-08 12:33 | PD.RAD ---
Post Procedure Progress Note Pre Procedure Diagnosis: (1) Small bowel obstruction Post Procedure Diagnosis: (1) Small bowel obstruction Procedure Date: Sep 08, 2017 Supervising Radiologist: Tae Archuleta JR Proceduralist/Assist: Alicja Ray, RT(R), Josefina Garcia RT(R) Anesthesia: Local, Analgesia Plan of Activity Patient to Unit: Nursing Unit Patient Condition: Good Additional Comments: Placed NGT thru left nares with tip in gastric sleeve. Done under fluoroscopic guidance. See PACS Report for procedural detail/treatment Jr. Geremias,Tae Farrell MD Sep 08, 2017 12:33
[2017-09-08] MEDS: POTASSIUM CHLOR 10 MEQ PREMIX 100 ML IV SCH ×3 (13:00→15:00)
[2017-09-08] MEDS ORDERED: metroNIDAZOLE 500 MG INJ 100 ML IV ONE (13:11)
[2017-09-08] MEDS ORDERED: VANCOMYCIN HCL 1000 MG VIAL ONE (13:11)
[2017-09-08] MEDS ORDERED: VANCOMYCIN 500 MG VIAL ONE (13:12)
--- NOTE | 2017-09-08 14:30 | RADRPT ---
EXAM DATE/TIME: 09/08/2017 12:04 [facility] COMPARISON: No previous studies available for comparison. INDICATIONS : Patient with a history of gastric sleeve bypass surgery MEDICAL HISTORY : Arthritis Polymyalgia rheumatica Sleep apnea SURGICAL HISTORY : Gastric sleeve Cholecystectomy Left ankle repair Tonsillectomy ENCOUNTER: Initial ACUITY: 2 days PAIN SCORE: 2/10 LOCATION: Abdomen FLUORO TIME: 1.2 minutes IMAGE SERIES: 1 SEDATION TIME: 0 minutes CONTRAST: 10 cc Visipaque (iodixanol) MEDICATION(S): 1.) 1 mg lorazepam (Ativan) IV 2.) 50 mcg Fentanyl (Sublimaze) IV DEVICE(S): 1.) 14F NG tube PROCEDURE : 1. Fluoroscopically guided enteric feeding tube placement. The risks, benefits and alternatives to the procedure were explained and verbal and written consent w as obtained. With fluoroscopic guidance a nasogastric tube was passed through the right nasal cavity into the stomach. The tube was positioned with the tip in the gastric sleeve. Injection of positive contrast demonstrates good position of catheter within the stomach. CONCLUSION: Uncomplicated nasogastric tube placement as above. Tae Archuleta Jr., MD on September 08, 2017 at 14:26 Board Certified Radiologist. This report was verified electronically.
[2017-09-08] MEDS ORDERED: LEVOFLOXACIN 750 MG/DEXTROSE 150 ML IV ONE (15:00)
[2017-09-08] MEDS ORDERED: LEVOFLOXACIN 500 MG PREMIX INJ 100 ML IV ONE ×2 (15:06→15:08)
[2017-09-08] MEDS ORDERED: ALBUMIN 5% INJ 250 ML IV ONE (16:10)
[2017-09-08] MEDS ORDERED: PHENYLEPHRINE HCL 10 MG/ML VIAL ONE (16:48)
[2017-09-08] MEDS ORDERED: SODIUM CHLOR 0.9% 1000 ML INJ 1,000 ML IV SCH (19:02)
[2017-09-08] MEDS ORDERED: Post-op Orders (for Pharmacy) XX ONE (19:15)
[2017-09-08] MEDS ORDERED: ONDANSETRON HCL 4 MG/2 ML VIAL IV PUSH PRN (19:15)
[2017-09-08] MEDS ORDERED: NALOXONE HCL 0.4 MG/ML AMP IV PUSH PRN (19:15)
[2017-09-08] MEDS ORDERED: SODIUM CHLORIDE 0.9% FLUSH 10 ML FLUSH IV FLUSH PRN (19:15)
[2017-09-08] MEDS ORDERED: MORPHINE SULFATE 30 MG/30 ML PCA IV SCH (19:15)
[2017-09-08 19:46] VITALS: O2SAT 100
[2017-09-08 20:00] VITALS: BP 113/67; PULSE 122; RESP 16; TEMP 98.1; O2SAT 100
[2017-09-08] MEDS ORDERED: FLUCONAZOLE 200 MG PREMIX BAG 100 ML IV SCH (20:00)
[2017-09-08] MEDS ORDERED: metroNIDAZOLE 500 MG INJ 100 ML IV SCH (20:00)
[2017-09-08 20:35] LABS: BLOOD GAS BASE EXCESS 0.2 mmol/L (-2-2); BLOOD GAS CARBOXYHEMOGLOBIN 1.2 % (0-4); BLOOD GAS HCO3 25 mmol/L (22-26); BLOOD GAS METHEMOGLOBIN 1.6 % (0-2); BLOOD GAS O2 HGB SATURATION 96 % (90-100); BLOOD GAS OXYGEN CONTENT 13.5 Vol % (12.0-20.0); BLOOD GAS PCO2 46 mmHg (38-42); BLOOD GAS PO2 165 mmHg (61-120); BLOOD GAS TOTAL HGB 9.8 G/DL (12.0-16.0); CRITICAL VALUE NO; DRAW SITE RT RADIAL; FIO2 100 %; NUMBER OF ARTERIAL PUNCTURES 1; OXYGEN DEVICE VENTILATOR; STAT YES; TEMP CORR TO 98.6; ULNAR PULSE PRESENT
[2017-09-08 20:41] VITALS: O2SAT 100
[2017-09-08] MEDS: SODIUM CHLORIDE 0.9% FLUSH 10 ML FLUSH IV FLUSH SCH (21:00)
[2017-09-08] MEDS ORDERED: MAGNESIUM SULFATE INJ 4 GM in SODIUM CHLORIDE 0.9% INJ 92 ML IV PRN (21:00)
[2017-09-08] MEDS ORDERED: POTASSIUM CHLOR 20 MEQ PREMIX 100 ML IV PRN ×2 (21:00)
[2017-09-08] MEDS ORDERED: SODIUM PHOSPHATE INJ 30 MMOL in SODIUM CHLOR 0.9% 250 ML INJ 240 ML IV PRN (21:00)
[2017-09-08] MEDS ORDERED: POTASSIUM PHOSPHATE MONOBASIC 500 MG TAB PO/TUBE PRN (21:00)
[2017-09-08] MEDS ORDERED: POTASSIUM PHOSPHATE MONOBASIC 500 MG TAB PO PRN (21:00)
[2017-09-08] MEDS ORDERED: MAGNESIUM OXIDE 400 MG TAB PO PRN (21:00)
[2017-09-08] MEDS ORDERED: POTASSIUM CHLORIDE 25 MEQ EFFERVESCENT TAB PO PRN (21:00)
[2017-09-08] MEDS ORDERED: POTASSIUM PHOSPHATE INJ 30 MMOL in SODIUM CHLOR 0.9% 250 ML INJ 250 ML IV PRN (21:00)
[2017-09-08] MEDS ORDERED: MAGNESIUM SULFATE INJ 2 GM in SODIUM CHLORIDE 0.9% INJ 96 ML IV PRN (21:00)
--- NOTE | 2017-09-08 21:02 | PD.CONS ---
HPI Service Critical Care Medicine Consult Requested By Primary Care Physician Rafael Rowan MD History of Present Illness 61-year-old morbidly obese female presents, patient of Dr. Epstein, status post gastric sleeve 08-22-17 now presents with nonbloody emesis and unable to have a bowel movement for a couple days. She states to get that bowel movement she had a use a glycerin suppository and it was just loose. He was taken emergently to operating room and was found to have a small bowel ischemia. She underwent laparoscopic small bowel resection by Dr. Epstein and is postoperatively admitted to critical care unit. Review of Systems ROS Unobtainable patient is sedated and intubated Past Family Social History Allergies: Coded Allergies: propoxyphene (Unverified Allergy, Intermediate, HALLUCINATIONS, 08/23/17) Uncoded Allergies: ADHESIVE TAPE (Allergy, Intermediate, PULLS SKIN OFF, 09/20/13) DARVOCET-HALLUCINATIONS; (Allergy, Unknown, 06/24/03) Past Medical History Arthritis: Yes Autoimmune Disease: Yes (Polymyalgia Rheumatica) Depression: Yes Chest Pain: Yes (Pt. had workup in 2014) Endocrine: Yes Gastrointestinal Disorders: Yes (Gastric sleeve 08-22-17) Medical other: Yes (SLEEP APNEA, USES CPAP) Musculoskeletal: Yes Respiratory: Yes Integumentary: Yes (FATTY TUMOR IN LEFT LEG REMOVED) Immunizations Current: Yes Sleep Apnea: Yes (Diagnosed with minimal sleep apnea. Pt. wears cpap at home) Menopausal: Yes Dilation and Curettage (D&C): Yes Past Surgical History Abdominal Surgery: Yes (Gallbladder removal with subsequent infection, gastric sleeve 08-22-17) Eye Surgery: Yes (Left retinal tear X2, did laser surgery ) Gynecologic Surgery: Yes (D & C in 2014) Joint Replacement: Yes (Left ankle repair) Tonsillectomy: Yes (AND ADDENOIDS) Reported Medications Reported Meds & Active Scripts Active Bath/Shower Seat with Hubert (Device) 1 Mis Mis Ea .ROUTE DIRECTED Walker with Front Wheels (Device) 1 Mis Mis Ea .ROUTE DIRECTED Phenergan (Promethazine HCl) 25 Mg Tablet 25 Mg PO Q6H PRN Reported Protonix (Pantoprazole Sodium) 40 Mg Tab 40 Mg PO DAILY Metformin (Metformin HCl) 500 Mg Tab 250 Mg PO DAILY With a meal Venlafaxine ER 24 HR (Venlafaxine HCl) 75 Mg Cap 75 Mg PO DAILY Allopurinol 100 Mg Tab 2 Tab PO DAILY [place] Thyroid (Thyroid) 120 Mg Tab 120 Mg PO DAILY Levetiracetam 250 Mg Tab 250 Mg PO BID Methylphenidate ER 24 HR (Methylphenidate HCl) 20 Mg Caper 20 Mg PO DAILY Amlodipine (Amlodipine Besylate) 2.5 Mg Tab 2.5 Mg PO DAILY [place]-3 Fish Oil/Vitamin (Fish Oil-Cholecalciferol) 1,000-1,000 Mg Cap 1 Cap PO DAILY Estrogel Topical (Estradiol) 0.06% Gel 1 Gm VAGINAL WEEKLY Vitamin D3 (Cholecalciferol) 5,000 Unit Cap 5,000 Units PO DAILY Active Ordered Medications Current Medications Medications (Trade) Dose Ordered Sig/Daniel Route PRN Reason Start Time Stop Time Status Last Admin Dose Admin Morphine Sulfate (Morphine Inj) 2 mg Q4H PRN IV PUSH PAIN SCALE 6 TO 10 09/07/17 15:30 09/07/17 22:53 Miscellaneous Information 1 Q3D T-DERMAL 09/07/17 18:00 Scopolamine (Transderm-Scop 1.5 Mg Patch.72 Hr) 1 patch Q3D T-DERMAL 09/07/17 18:00 Pantoprazole Sodium (Protonix Inj) 40 mg DAILY IV PUSH 09/08/17 09:00 09/08/17 08:58 Sodium Chloride 1,000 ml @ 100 mls/hr Q10H IV 09/08/17 19:02 09/08/17 21:16 Sodium Chloride (NS Flush) 2 ml UNSCH PRN IV FLUSH FLUSH AFTER USING IV ACCESS 09/08/17 19:15 Sodium Chloride (NS Flush) 2 ml BID IV FLUSH 09/08/17 21:00 09/08/17 21:00 Ondansetron HCl (Zofran Inj) 4 mg Q4H PRN IV PUSH NAUSEA OR VOMITING 09/08/17 19:15 09/08/17 20:00 Enoxaparin Sodium (Lovenox Inj) 40 mg Q12H SQ 09/09/17 18:00 Naloxone HCl (Narcan Inj) 0.4 mg UNSCH PRN IV PUSH RESPIRATORY RATE LESS THAN 10 09/08/17 19:15 Morphine Sulfate (Morphine 1 Mg/ ml PRACTICE PHYSICIAN) 30 mg UNSCH IV 09/08/17 19:15 PRACTICE PHYSICIAN Dosage Infused (Pha) 1 Q8HR .XX 09/08/17 22:00 Levofloxacin/ Dextrose 150 ml @ 100 mls/hr Q24H IV 09/09/17 17:00 Pantoprazole Sodium (Protonix) 40 mg DAILY PO 09/09/17 09:00 Potassium Chloride 100 ml @ 50 mls/hr Q2H PRN IV For Potassium 2.8 - 3.2 mEq/L 09/08/17 21:00 09/09/17 01:50 Potassium Chloride 100 ml @ 50 mls/hr Q2H PRN IV For Potassium 2.8 - 3.2 mEq/L 09/08/17 21:00 Potassium Bicarb/ Potassium Chloride (K-Lyte Cl Eff) 50 meq UNSCH PRN PO For Potassium 3.3 - 3.5 mEq/L 09/08/17 21:00 Potassium Chloride 100 ml @ 25 mls/hr UNSCH PRN IV For Potassium 3.3 - 3.5 mEq/L 09/08/17 21:00 Potassium Chloride 100 ml @ 50 mls/hr Q2H PRN IV For Potassium 3.3 - 3.5 mEq/L 09/08/17 21:00 Magnesium Sulfate 4 gm/Sodium Chloride 100 ml @ 50 mls/hr UNSCH PRN IV For Magnesium 0.9 - 1.1 mg/dL 09/08/17 21:00 Magnesium Oxide (Mag-Ox) 800 mg UNSCH PRN PO For Magnesium 1.2 - 1.6 mg/dL 09/08/17 21:00 Magnesium Sulfate 2 gm/Sodium Chloride 100 ml @ 50 mls/hr UNSCH PRN IV For Magnesium 1.2 - 1.6 mg/dL 09/08/17 21:00 Potassium Phosphate (K-Phos) 2,000 mg Q4H PRN PO For Phosphorus < 2.5 mg/dL 09/08/17 21:00 Sodium Phosphate 30 mmol/Sodium Chloride 250 ml @ 42 mls/hr UNSCH PRN IV For Phosphorus < 2.5 mg/dL 09/08/17 21:00 Potassium Phosphate (K-Phos) 2,000 mg UNSCH PRN PO/TUBE SEE LABEL COMMENTS 09/08/17 21:00 Potassium Phosphate 30 mmol/ Sodium Chloride 260 ml @ 42 mls/hr UNSCH PRN IV SEE LABEL COMMENTS 09/08/17 21:00 Fentanyl Citrate 250 ml @ 5 mls/hr TITRATE PRN IV SEDATION 09/08/17 21:15 09/08/17 21:16 Norepinephrine Bitartrate 250 ml @ 7.5 mls/hr TITRATE PRN IV Blood pressure management 09/08/17 21:15 09/09/17 05:25 Terbutaline Sulfate (Brethine Inj) 1 mg UNSCH PRN SQ For Extravasation 09/08/17 21:15 Vasopressin 40 units/Dextrose 100 ml @ 1.5 mls/hr Q24H IV 09/08/17 22:26 09/08/17 22:44 Metronidazole 100 ml @ 100 mls/hr Q6H IV 09/09/17 03:00 09/09/17 03:15 Fluconazole/ Sodium Chloride 200 ml @ 100 mls/hr Q24H IV 09/09/17 08:00 09/11/17 09:59 Phenylephrine HCl 40 mg/Dextrose 500 ml @ 30 mls/hr TITRATE PRN IV Blood pressure management 09/09/17 01:45 09/09/17 05:07 Terbutaline Sulfate (Brethine Inj) 1 mg UNSCH PRN SQ For Extravasation 09/09/17 01:45 Pharmacy Profile Note 0 ml @ 0 mls/hr UNSCH OTHER 09/09/17 01:45 Dobutamine HCl/ Dextrose 250 ml @ 23.13 mls/ hr [id number] PRN IV Rate change per MD 09/09/17 01:41 09/09/17 03:16 Sodium Bicarbonate (Sodium Bicarbonate 8.4% Inj) 100 meq UNSCH X1 IV 09/09/17 05:30 09/09/17 07:00 09/09/17 05:25 Sodium Chloride 1,000 ml @ 999 mls/hr Q1H1M IV 09/09/17 05:30 09/09/17 07:30 Family History No family history of early coronary artery disease or malignancy Social History Alcohol Use: Yes (RARELY) Tobacco Use: No Substance Use: No Physical Exam Vital Signs Vital Signs Date Time Temp Pulse Resp B/P (MAP) Pulse Ox O2 Delivery O2 Flow Rate FiO2 09/08/17 20:41 100 50 09/08/17 19:46 100 100 09/08/17 08:00 97.3 83 17 130/67 (88) 95 09/08/17 00:00 97.9 91 18 160/82 (108) 96 09/07/17 22:58 18 Physical Exam GENERAL: Mildly obese female sedated and intubated. SKIN: Warm and dry. HEAD: Normocephalic. EYES: No scleral icterus. No injection or drainage. NECK: Supple, trachea midline. No JVD or lymphadenopathy. CARDIOVASCULAR: Regular rate and rhythm without murmurs, gallops, or rubs. RESPIRATORY: Breath sounds equal bilaterally. No accessory muscle use. GASTROINTESTINAL: Abdomen soft, tender, nondistended. Morbidly obese and difficult to examine MUSCULOSKELETAL: No cyanosis, or edema. BACK: Nontender without obvious deformity. NEURO EXAM: Mental Status: The patient is sedated and intubated, following commands while off sedation. Cranial Nerves: Pupils are round, reactive to light. Reflexes: Biceps, patellar, and Achilles are 2/4 bilaterally. No clonus. Laboratory Laboratory Tests Test 09/08/17 04:33 09/08/17 20:21 White Blood Count 10.6 Red Blood Count 3.27 Hemoglobin 10.4 Hematocrit 29.9 Mean Corpuscular Volume 91.7 Mean Corpuscular Hemoglobin 31.7 Mean Corpuscular Hemoglobin Concent 34.6 Red Cell Distribution Width 15.2 Platelet Count 528 Mean Platelet Volume 7.3 Neutrophils (%) (Auto) 66.9 Lymphocytes (%) (Auto) 21.3 Monocytes (%) (Auto) 9.1 Eosinophils (%) (Auto) 1.5 Basophils (%) (Auto) 1.2 Neutrophils # (Auto) 7.1 Lymphocytes # (Auto) 2.2 Monocytes # (Auto) 1.0 Eosinophils # (Auto) 0.2 Basophils # (Auto) 0.1 CBC Comment DIFF FINAL Differential Comment Blood Urea Nitrogen 13 Creatinine 0.40 Random Glucose 120 Calcium Level 7.8 Phosphorus Level 3.2 Magnesium Level 1.7 Sodium Level 134 Potassium Level 3.2 Chloride Level 96 Carbon Dioxide Level 29.0 Anion Gap 9 Estimat Glomerular Filtration Rate 162 Blood Gas Puncture Site RT RADIAL Blood Gas Patient Temperature 98.6 Blood Gas HCO3 25 Blood Gas Base Excess 0.2 Blood Gas Oxygen Saturation 96 Arterial Blood pH 7.36 Arterial Blood Partial Pressure CO2 46 Arterial Blood Partial Pressure O2 165 Arterial Blood Oxygen Content 13.5 Arterial Blood Carboxyhemoglobin 1.2 Arterial Blood Methemoglobin 1.6 Blood Gas Hemoglobin 9.8 Oxygen Delivery Device VENTILATOR Blood Gas Ventilator Setting COMMENT Blood Gas Inspired Oxygen 100 Result Diagram: 09/08/1743209/08/17432 Assessment and Plan Assessment and Plan Respiratory failure - Postoperatively - Continue mechanical ventilation - No weaning until hemodynamically stable - ABG is CXR daily - Vent bundle Hypotension - Septic shock - Broad-spectrum antibiotic - Levaquin, Flagyl, Diflucan, vancomycin - Blood cultures - Aggressive IV fluid resuscitation - Central and placed - Levophed, vasopressin, Des-Synephrine, dobutamine - Hydrocortisone stress dose Small bowel ischemia - Status post resection - Monitor lactic acidosis - Further management per Dr. Epstein general surgery Anemia - Volume loss - Transfuse 2 units of PRBC - Monitor H&H Diabetes mellitus - Insulin sliding scale Seizure disorder - Keppra DVT GI prophylaxis - Teds SCDs - Pharmacological DVT prophylaxis per surgeon - Protonix Critical Care: The total critical care time was 35 minutes. Time to perform other separately billable procedures was not included in the critical care time. Eric Bazan MD Sep 08, 2017 21:02
[2017-09-08] MEDS ORDERED: TERBUTALINE INJ 1 MG/ML AMP SQ PRN (21:15)
[2017-09-08] MEDS: NOREPINEPHRINE-DEXTROSE DRIP 250 ML IV PRN (21:15)
[2017-09-08] MEDS: fentaNYL DRIP 250 ML IV PRN (21:16)
[2017-09-08] MEDS: SODIUM CHLOR 0.9% 1000 ML INJ 1,000 ML IV SCH ×3 (22:00→23:55)
[2017-09-08] MEDS: PCA - TOTAL MG MORPHINE DELIVERED PER SHIFT SCH (22:00)
--- NOTE | 2017-09-08 22:12 | RADRPT ---
EXAM DATE/TIME: 09/08/2017 21:32 [facility] COMPARISON: No previous studies available for comparison. INDICATIONS : Central line placement. MEDICAL HISTORY : None. SURGICAL HISTORY : None. ENCOUNTER: Subsequent ACUITY: 3 days PAIN SCORE: Non-responsive. LOCATION: Bilateral chest FINDINGS: Right central line tip projects over the mid superior vena cava. No evidence of pneumothorax. Endot shani tube tip 2.1 cm above the jb. Gastric tube traverses the [id number]. Patchy areas of consolidation in the left lower lung and the right perihilar region. Both hemidiaphragms are well d elineated. The heart is normal size. CONCLUSION: Central line in good position. No evidence of pneumothorax. Tae Roblero MD on September 08, 2017 at 22:09 Board Certified Radiologist. This report was verified electronically.
[2017-09-08] MEDS ORDERED: VASOPRESSIN INJ 40 UNITS in DEXTROSE 5% IN WATER 100ML INJ 98 ML IV SCH ×2 (22:26)
[2017-09-08 22:43] LABS: HEMATOCRIT 30.4 % (35.0-46.0); REVIEW FLAG FINAL
[2017-09-08 23:05] LABS: BICARBONATE 25.9 MEQ/L (21.0-32.0); POTASSIUM 3.1 MEQ/L (3.5-5.1)
[2017-09-08 23:20] LABS: CALCIUM-PROTEIN CORRECTED 8.1 MG/DL (8.5-10.1)
[2017-09-08] MEDS: POTASSIUM CHLOR 40 MEQ PREMIX 100 ML IV PRN (23:24)
[2017-09-08 23:27] LABS: BLOOD GAS CARBOXYHEMOGLOBIN 1.1 % (0-4); BLOOD GAS HCO3 22 mmol/L (22-26); BLOOD GAS METHEMOGLOBIN 1.5 % (0-2); BLOOD GAS O2 HGB SATURATION 95 % (90-100); BLOOD GAS OXYGEN CONTENT 12.8 Vol % (12.0-20.0); BLOOD GAS PCO2 36 mmHg (38-42); BLOOD GAS PO2 121 mmHg (61-120); BLOOD GAS TOTAL HGB 9.4 G/DL (12.0-16.0); CRITICAL VALUE NO; OXYGEN DEVICE VENTILATOR; TEMP CORR TO 98.6
[2017-09-08 23:28] LABS: DRAW SITE RT BRACHIAL; FIO2 100 %; NUMBER OF ARTERIAL PUNCTURES 1; STAT YES; ULNAR PULSE PRESENT
[2017-09-09] VITALS (18 sets, daily range): BP systolic 80–134; BP diastolic 39–72; PULSE 103–126; RESP 17–23; TEMP 97.9–99.8; O2SAT 95–100
[2017-09-09 00:09] LABS: BASOPHIL % 0.1 % (0.0-2.0); EOSINOPHIL % 0.2 % (0.0-4.0); HEMATOCRIT 30.4 % (35.0-46.0); HEMO FLAGS DIFF FINAL; LYMPH % 8.3 % (9.0-44.0); LYMPHOCYTE # 0.3 TH/MM3 (1.0-4.8); MEAN CELL VOLUME 92.9 FL (80.0-100.0); MEAN CORPUSCULAR HEMOGLOBIN 29.3 PG (27.0-34.0); MEAN CORPUSCULAR HGB CONC 31.6 % (32.0-36.0); MONO % 6.8 % (0.0-8.0); NEUT % 84.6 % (16.0-70.0); PLATELET COUNT 579 TH/MM3 (150-450); RED BLOOD COUNT 3.27 MIL/MM3 (4.00-5.30); RED CELL DISTRIBUTION WIDTH 15.5 % (11.6-17.2); WHITE BLOOD COUNT 3.6 TH/MM3 (4.0-11.0)
[2017-09-09] MEDS ORDERED: PHENYLEPHRINE HCL 10 MG/ML VIAL ONE (00:48)
[2017-09-09] MEDS: NOREPINEPHRINE-DEXTROSE DRIP 250 ML IV PRN ×8 (00:51→22:28)
[2017-09-09] MEDS ORDERED: SODIUM CHLOR 0.9% 1000 ML INJ 2,000 ML IV ONE (01:30)
[2017-09-09] MEDS ORDERED: TERBUTALINE INJ 1 MG/ML AMP SQ PRN (01:45)
[2017-09-09] MEDS ORDERED: VANCOMYCIN INJ 1,000 MG in SODIUM CHLOR 0.9% 250 ML INJ 250 ML IV ONE (01:45)
[2017-09-09] MEDS ORDERED: Vancomycin Consult Pharmacy 1 EA OTHER SCH (01:45)
[2017-09-09] MEDS ORDERED: ALBUMIN 5% INJ 500 ML IV ONE (01:45)
[2017-09-09 01:47] LABS: LACTIC ACID GHOST NOT REPORTABLE
[2017-09-09] MEDS: POTASSIUM CHLOR 40 MEQ PREMIX 100 ML IV PRN (01:50)
[2017-09-09] MEDS ORDERED: MIDAZOLAM HCL 2 MG/2 ML VIAL IV SCH (02:30)
[2017-09-09] MEDS ORDERED: VANCOMYCIN INJ 2,000 MG in SODIUM CHLORID 0.9% 500 ML INJ 500 ML IV ONE (03:00)
[2017-09-09] MEDS ORDERED: MIDAZOLAM HCL 5 MG/ML VIAL (1 ML) ONE ×2 (03:07→06:50)
[2017-09-09] MEDS: metroNIDAZOLE 500 MG INJ 100 ML IV SCH ×4 (03:15→20:06)
[2017-09-09] MEDS: DOBUTamine PREMIX DRIP 250 ML IV PRN ×2 (03:16→07:27)
[2017-09-09] MEDS: PHENYLEPHRINE INJ 40 MG in DEXTROSE 5% IN WATE 500 ML INJ 496 ML IV PRN ×12 (03:17→09:30)
[2017-09-09] MEDS: PCA - TOTAL MG MORPHINE DELIVERED PER SHIFT SCH ×3 (03:18→21:20)
[2017-09-09] MEDS: SODIUM CHLOR 0.9% 1000 ML INJ 1,000 ML IV SCH ×4 (03:30→23:55)
[2017-09-09 04:48] LABS: BLOOD GAS BASE EXCESS -6.5 mmol/L (-2-2); BLOOD GAS CARBOXYHEMOGLOBIN 0.8 % (0-4); BLOOD GAS HCO3 18 mmol/L (22-26); BLOOD GAS METHEMOGLOBIN 0.8 % (0-2); BLOOD GAS O2 HGB SATURATION 97 % (90-100); BLOOD GAS OXYGEN CONTENT 11.8 Vol % (12.0-20.0); BLOOD GAS PCO2 31 mmHg (38-42); BLOOD GAS PO2 168 mmHg (61-120); BLOOD GAS TOTAL HGB 8.4 G/DL (12.0-16.0); CRITICAL VALUE NO; DRAW SITE RT BRACHIAL; FIO2 70 %; OXYGEN DEVICE VENTILATOR; TEMP CORR TO 98.6; VENT SETTINGS COMMENTS
[2017-09-09 04:49] LABS: NUMBER OF ARTERIAL PUNCTURES 1; STAT NO; ULNAR PULSE PRESENT
[2017-09-09] MEDS ORDERED: SODIUM BICARBONATE 8.4% INJ 50 MEQ/50 ML SYR ONE (05:11)
[2017-09-09] MEDS ORDERED: SODIUM BICARBONATE 8.4% SOLN 50 MEQ/50 ML VIAL IV SCH (05:30)
[2017-09-09] MEDS ORDERED: SODIUM CHLOR 0.9% 1000 ML INJ 1,000 ML IV SCH (05:30)
[2017-09-09] MEDS ORDERED: DEXTROSE 50% IN WATER 50 ML VIAL(D50) IV PUSH PRN (06:00)
[2017-09-09] MEDS ORDERED: GLUCAGON 1 MG/ML VIAL OTHER PRN (06:00)
--- NOTE | 2017-09-09 06:00 | PD.PROCEDR ---
Procedure Note Procedure Centerline placement A time-out was completed verifying correct patient, procedure, site, positioning , and special equipment if applicable. The patient was placed in a dependent position appropriate for central line placement based on the vein to be cannulated. The patients right neck was prepped and draped in sterile fashion. 1% Lidocaine was used to anesthetize the surrounding skin area. A triple lumen 9 -[place] Cordis catheter was introduced into the the internal jugular vein using the Seldinger technique and under ultrasound guidance. The catheter was threaded smoothly over the guide wire and appropriate blood return was obtained. Each lumen of the catheter was evacuated of air and flushed with sterile saline. The catheter was then sutured in place to the skin and a sterile dressing applied. Perfusion to the extremity distal to the point of catheter insertion was checked and found to be adequate. Estimated Blood Loss: 1ml The patient tolerated the procedure well and there were no complications. Eric Bazan MD Sep 09, 2017 06:00
[2017-09-09] MEDS: HYDROCORTISONE SOD SUCCINATE 100 MG VIAL IV PUSH SCH ×3 (06:07→21:21)
[2017-09-09] MEDS: SODIUM BICARBONATE 8.4% INJ 150 MEQ in DEXTROSE 5% IN WATE 1000ML INJ 1,000 ML IV SCH ×2 (07:00)
--- NOTE | 2017-09-09 07:21 | PD.PROCEDR ---
Procedure Note Procedure REASON FOR PROCEDURE Invasive hemodynamic monitoring PROCEDURE PERFORMED Right femoral arterial line placement US guided CONSENT Informed consent for procedure was obtained from and time out performed. The risks and benefits of the procedure were discussed to include but limited to bleeding, clot formation, infection, and even . ANESTHESIA Local injection of 1% Lidocaine DESCRIPTION OF THE PROCEDURE The patient was placed in supine, mild Trendelenburg position. The area was exposed and cleansed with ChloraPrep, times two. Large sterile drape was used to cover the patient, with the site exposed, under sterile conditions including cap, face mask, sterile gown, and sterile gloves. On second attempt, the introducer needle was inserted with negative pressure in syringe and arterial flash was obtained. The guide wire was then advanced without any restriction and the needle was removed. Using Seldinger technique the arterial catheter was advanced over the guide wire. The guide wire was removed. Good arterial wave form. Antibiotic disc was placed around arterial line at puncture site and line was secured to the skin with two interrupted 2.0 silk sutures. The area was bandaged with sterile see-through bandage. RADIOLOGICAL DATA Ultrasound guidance was used to locate Right femoral artery. COMPLICATIONS: No apparent complications ESTIMATED BLOOD LOSS: Less than 2 cc. Kieran Salgado MD Sep 09, 2017 07:21
--- NOTE | 2017-09-09 07:35 | HHI.CCPN ---
Subjective Remarks/Hospital Course 61-year-old morbidly obese female presents, patient of Dr. Epstein, status post gastric sleeve 08-22-17 now presents with nonbloody emesis and unable to have a bowel movement for a couple days. She states to get that bowel movement she had a use a glycerin suppository and it was just loose. He was taken emergently to operating room and was found to have a small bowel ischemia. She underwent laparoscopic small bowel resection by Dr. Epstein and is postoperatively admitted to critical care unit SUBJ 09/09/17: Remains very critically ill. Profound septic shock requiring Levophed at 40 mcg/m, Des-Synephrine at 500 mcg/m, vasopressin at 0.04 international units, and to be demand 5 g per KG per minute. Urine output 150 mL overnight. Maintaining oxygen saturation. A.m. labs are pending at this time. Surprisingly patient is still mentating able to communicate. Remains on IV fentanyl infusion for pain control. Operative report is pending at this time. Received total of 9 L of crystalloid postoperatively. Receiving 2 units of PRBC. I will replace calcium. Lactic acid 3.5 at 4 AM Objective Vital Signs Date Time Temp Pulse Resp B/P (MAP) Pulse Ox O2 Delivery O2 Flow Rate FiO2 09/09/17 06:20 114 85/48 09/09/17 06:09 98.6 23 99 09/09/17 04:04 80 09/07/17 14:36 Room Air Intake and Output 09/09/17 09/09/17 09/10/17 08:00 16:00 00:00 Intake Total 4566 ml Balance 4566 ml Result Diagram: 09/08/17 2215 09/08/17 2115 Other Results Laboratory Tests Test 09/08/17 20:21 09/08/17 23:13 09/09/17 04:33 Blood Gas Puncture Site RT RADIAL RT BRACHIAL RT BRACHIAL Blood Gas Patient Temperature 98.6 98.6 98.6 Blood Gas HCO3 25 mmol/L (22-26) 22 mmol/L (22-26) 18 mmol/L (22-26) Blood Gas Base Excess 0.2 mmol/L (-2-2) -2.0 mmol/L (-2-2) -6.5 mmol/L (-2-2) Blood Gas Oxygen Saturation 96 % (90-100) 95 % (90-100) 97 % (90-100) Arterial Blood pH 7.36 (7.380-7.420) 7.40 (7.380-7.420) 7.37 (7.380-7.420) Arterial Blood Partial Pressure CO2 46 mmHg (38-42) 36 mmHg (38-42) 31 mmHg (38-42) Arterial Blood Partial Pressure O2 165 mmHg (61-120) 121 mmHg (61-120) 168 mmHg (61-120) Arterial Blood Oxygen Content 13.5 Vol % (12.0-20.0) 12.8 Vol % (12.0-20.0) 11.8 Vol % (12.0-20.0) Arterial Blood Carboxyhemoglobin 1.2 % (0-4) 1.1 % (0-4) 0.8 % (0-4) Arterial Blood Methemoglobin 1.6 % (0-2) 1.5 % (0-2) 0.8 % (0-2) Blood Gas Hemoglobin 9.8 G/DL (12.0-16.0) 9.4 G/DL (12.0-16.0) 8.4 G/DL (12.0-16.0) Oxygen Delivery Device VENTILATOR VENTILATOR VENTILATOR Blood Gas Ventilator Setting COMMENT COMMENT COMMENTS Blood Gas Inspired Oxygen 100 % 100 % 70 % Objective Remarks Infusions: Levophed at 40 mcg/m Dobutamine at 5 g per KG per minute Vasopressin at 0.04 international units Des-Synephrine at 500 mcg/m GENERAL: Obese female sedated and intubated. SKIN: Warm and dry. HEAD: Normocephalic. EYES: No scleral icterus. No injection or drainage. NECK: Supple, trachea midline. No JVD or lymphadenopathy. Orotracheally intubated CARDIOVASCULAR: Tachycardic rate and rhythm. Profound septic shock on 4 pressors. Flow trac-CO 12.1 CI 4.7 SVV 11 SV 109 RESPIRATORY: Breath sounds equal bilaterally. No accessory muscle use. GASTROINTESTINAL: Abdomen soft, tender, distended. Morbidly obese. Bilateral ROSSI drains in place. Trochar incisions sites CDI MUSCULOSKELETAL: No cyanosis, or edema. NEURO EXAM: Mental Status: The patient is sedated and intubated, following commands while off sedation. Moves all extremities Cranial Nerves: Pupils are round, reactive to light. A/P Assessment and Plan A/P: NEURO: Seizure disorder - Fentanyl infusion for pain control - As needed Versed pressures for vent synchrony - Keppra IV RESP: Acute hypoxemic respiratory failure - Continue mechanical ventilation/PRVC mode - No weaning until hemodynamically stable - ABG, CXR daily - Vent bundle - DuoNeb every 6 hours scheduled and when necessary CVS: Septic shock, refractory Lactic acidosis - Right femoral arterial line placed and flow track monitoring initiated - Flow trac-CO 12.1 CI 4.7 SVV 11 SV 109 - Reduce dobutamine from 5 g per KG per minute to 2.5, and wean to DC given high cardiac output - Attempt weaning Des-Synephrine first, continue Levophed and vasopressin. Add epinephrine if needed - Aggressive IV fluid resuscitation, postop received 9 L of normal saline, 2 units of PRBC - Lactic acid 3.5 at 4 AM we'll repeat now - Hydrocortisone stress dose GI: Small bowel ischemia/Perforation Peritonitis - Status post resection - Monitor lactic acidosis - Further management per Dr. Epstein general surgery HEME: Anemia - Volume loss - Transfusing 2 units of PRBC - Monitor H&H ID: Septic shock Peritonitis - Broad-spectrum antibiotic - Levaquin, Flagyl, Diflucan, vancomycin - Add cefepime 2 g IV every 8 hours for antipseudomonal coverage - Blood cultures, urine culture - ID consulted ENDO: Diabetes mellitus Hypocalcemia - Insulin sliding scale - Electrolyte replacement per protocol DVT GI prophylaxis - Teds SCDs - Pharmacological DVT prophylaxis Lovenox 40 mg subcutaneous every 12 - Protonix Critical Care: The total critical care time was 85 minutes. Time to perform other separately billable procedures was not included in the critical care time. Kieran Salgado MD Sep 09, 2017 07:35
[2017-09-09] MEDS ORDERED: EPINEPHrine (1:1000) INJ 2 MG in DEXTROSE 5% IN WATER INJ 250 ML IV PRN ×2 (07:45)
[2017-09-09] MEDS: CEFEPIME INJ 2,000 MG in SODIUM CHLORIDE 0.9% INJ 100 ML IV SCH ×3 (08:00→23:54)
[2017-09-09] MEDS: INSULIN ASPART SUPPLEMENTAL SCALE SQ SCH ×4 (08:00→21:20)
[2017-09-09] MEDS ORDERED: CALCIUM CHLORIDE INJ 2 GM in DEXTROSE 5% IN WATER 100ML INJ 100 ML IV ONE ×2 (08:00)
[2017-09-09 08:06] LABS: HEMATOCRIT 25.6 % (35.0-46.0); MEAN CELL VOLUME 91.7 FL (80.0-100.0); MEAN CORPUSCULAR HEMOGLOBIN 29.6 PG (27.0-34.0); MEAN CORPUSCULAR HGB CONC 32.3 % (32.0-36.0); PLATELET COUNT 450 TH/MM3 (150-450); RED BLOOD COUNT 2.79 MIL/MM3 (4.00-5.30); RED CELL DISTRIBUTION WIDTH 16.3 % (11.6-17.2); REVIEW FLAG FINAL; WHITE BLOOD COUNT 6.1 TH/MM3 (4.0-11.0)
[2017-09-09] MEDS: FLUCONAZOLE 400 MG PREMIX BAG 200 ML IV SCH (08:11)
[2017-09-09] MEDS: ALBUMIN 25% INJ 100 ML IV SCH ×3 (08:11→23:55)
[2017-09-09] MEDS: VASOPRESSIN INJ 40 UNITS in DEXTROSE 5% IN WATER 100ML INJ 98 ML IV SCH ×2 (08:12)
[2017-09-09] MEDS: MIDAZOLAM 100 MG/100 ML INJ 100 ML IV PRN ×2 (08:14→22:27)
[2017-09-09] MEDS: SODIUM CHLORIDE 0.9% FLUSH 10 ML FLUSH IV FLUSH SCH ×2 (08:14→21:20)
[2017-09-09] MEDS: levETIRAcetam INJ 500 MG in SODIUM CHLORIDE 0.9% INJ 100 ML IV SCH ×2 (08:23→20:07)
[2017-09-09] MEDS: PANTOPRAZOLE SODIUM 40 MG VIAL IV PUSH SCH (08:23)
[2017-09-09] MEDS ORDERED: MIDAZOLAM HCL 5 MG/ML VIAL (1 ML) IV PUSH ONE (08:30)
[2017-09-09] MEDS ORDERED: SODIUM BICARBONATE 8.4% INJ 50 MEQ/50 ML SYR IV PUSH ONE (08:30)
[2017-09-09 08:33] LABS: BICARBONATE 21.6 MEQ/L (21.0-32.0); MAGNESIUM 0.8 MG/DL (1.5-2.5); POTASSIUM 3.5 MEQ/L (3.5-5.1)
[2017-09-09 08:38] LABS: CALCIUM-PROTEIN CORRECTED 6.8 MG/DL (8.5-10.1)
[2017-09-09 08:42] LABS: BLOOD GAS BASE EXCESS -6.4 mmol/L (-2-2); BLOOD GAS CARBOXYHEMOGLOBIN 1.4 % (0-4); BLOOD GAS HCO3 18 mmol/L (22-26); BLOOD GAS METHEMOGLOBIN 1.5 % (0-2); BLOOD GAS O2 HGB SATURATION 96 % (90-100); BLOOD GAS OXYGEN CONTENT 12.8 Vol % (12.0-20.0); BLOOD GAS PCO2 31 mmHg (38-42); BLOOD GAS PO2 163 mmHg (61-120); BLOOD GAS TOTAL HGB 9.2 G/DL (12.0-16.0); CRITICAL VALUE NO; TEMP CORR TO 98.6
[2017-09-09 08:43] LABS: OXYGEN DEVICE VENTILATOR
[2017-09-09 08:44] LABS: DRAW SITE ART LINE; FIO2 50 %; STAT NO
[2017-09-09] MEDS ORDERED: PANTOPRAZOLE SOD 40 MG DELAYED RELEASE TAB PO SCH (09:00)
[2017-09-09 10:43] LABS: BACTERIA, URINE MOD /hpf; BLOOD, URINE NEG (NEG); GLUCOSE,URINE 70 mg/dL (NEG); GRANULAR CAST, URINE 14 /lpf; HYALINE CAST, URINE 14 /lpf (RARE); KETONE, URINE NEG (NEG); MUCUS URINE MANY /lpf (OCC); NITRITE,URINE NEG (NEG); SQUAMOUS EPITHELIAL CELL URINE 13 /hpf (0-5); TRANSITIONAL EPI CELLS, URINE 4 /hpf; URINE COLOR YELLOW (YELLW/STRAW)
[2017-09-09 10:44] LABS: COMMENT (UR) CULTURE INDICATED; CULTURE IF INDICATED CULTURE INDICATED
--- NOTE | 2017-09-09 13:53 | MB ---
cc: PENNY MANCERA MD DATE OF CONSULTATION: 09/09/[address] Bazan. REASON FOR CONSULTATION: Severe sepsis. HISTORY OF PRESENT ILLNESS This is a 61-year-old white female who presented to the emergency department on September 07 and was diagnosed with small bowel obstruction. She was taken to surgery and was found to have perforated small bowel and she underwent small bowel resection. The patient previously had elective gastric sleeve on 08/22/2017. After that she was having nausea and vomiting and then can then difficulty passing stools. During the surgical procedure the patient reportedly had some purulent material within the abdomen. She has been started on broad-spectrum antibiotics. She is currently on the ventilator. She is Levophed and vasopressin. She had hypotension and received a significant amount of fluid. White blood cell count had decreased significantly from 13.5 to 3.6 yesterday and today the white count 6.1. She had been afebrile. Cultures of blood, urine and sputum are pending. The patient is receiving sedation. She opens eyes but does not interact, meaningfully otherwise. PAST MEDICAL HISTORY 1. Rheumatoid arthritis 2. Hypothyroidism 3. Gout 4. Depression 5. Seizure disorder 6. Attention deficit disorder 7. Cholecystectomy Tonsillectomy 8. Ankle arthroplasty 9. Gastric sleeve. ALLERGIES PROPOXYPHENE DARVOCET ADHESIVE TAPES MEDICATIONS 1. Levofloxacin 2. cefepime. 3. Fluconazole. 4. Metronidazole. 5. Protonix. 6. Dobutamine. 7. Levophed 8. Vasopressin 9. Potassium chloride. SOCIAL HISTORY The patient is . Rare alcohol use noted. No tobacco. FAMILY HISTORY Unable to obtain. REVIEW OF SYSTEMS Review of systems unable to obtain physical exam this is a morbidly obese female who is on the ventilator. She is in no acute distress. VITAL SIGNS: Include temperature 98.6, systolic blood pressure 113, heart rate 119. The patient is on 40% of FIO2. HEAD, EYES, EARS, NOSE, AND THROAT: Unable to fully assess. The sclerae is nonicteric. Oropharynx intubated. Nuchal mucosa is moist. NECK: No adenopathy or swelling. LUNGS: Slight rhonchi at the bases bilateral. No rubs or gallops. ABDOMEN: Obese, soft, markedly diminished bowel sounds. RECTUM: A Rectal was not performed. EXTREMITIES: No clubbing or cyanosis. One plus edema of the feet. SKIN: No diffuse rash. NEUROLOGIC: Unable to assess. PSYCHIATRIC: Psych unable to assess. LABORATORY DATA WBC 6.1, platelets 450, hemoglobin 8.3, creatinine 0.76, BUN 13, sodium 138. Liver function tests within normal limits. The urinalysis revealed 48, white blood cells. IMPRESSION 1. Septic shock. 2. Post exploratory laparotomy with small bowel resection. 3. Post x-rays laparotomy oriented. As and small bowel resection along with lysis of adhesions free peritonitis for small bowel perforation. instead say peritonitis due to due to small bowel perforation. 4. Acute respiratory failure. RECOMMENDATIONS 1. Continue cefepime 2. Continue metronidazole 3. Continue fluconazole 4. Discontinue Levaquin 5. Monitor blood culture next monitor urine culture 6. Monitor sputum culture and 7. Follow clinical status. Thank you for this consultation. I will monitor the patient's progress and cultures and will make further recommendations on antibiotics. Penny Manecra MD FD/jimbo /10:59 AM /11:58 AM K[facility]
[2017-09-09] MEDS ORDERED: SODIUM CHLOR 0.9% 1000 ML INJ 1,000 ML IV ONE (15:15)
[2017-09-09] MEDS: VANCOMYCIN INJ 1,750 MG in SODIUM CHLORID 0.9% 500 ML INJ 500 ML IV SCH (15:39)
[2017-09-09 16:14] LABS: AUTOMATED NEUTROPHIL # 10.4 TH/MM3 (1.8-7.7); BASOPHIL % 0.1 % (0.0-2.0); EOSINOPHIL % 0.1 % (0.0-4.0); HEMATOCRIT 30.7 % (35.0-46.0); LYMPH % 5.7 % (9.0-44.0); LYMPHOCYTE # 0.7 TH/MM3 (1.0-4.8); MEAN CELL VOLUME 90.9 FL (80.0-100.0); MEAN CORPUSCULAR HEMOGLOBIN 30.1 PG (27.0-34.0); MEAN CORPUSCULAR HGB CONC 33.1 % (32.0-36.0); MONO % 5.1 % (0.0-8.0); PLATELET COUNT 445 TH/MM3 (150-450); RED BLOOD COUNT 3.38 MIL/MM3 (4.00-5.30); RED CELL DISTRIBUTION WIDTH 17.3 % (11.6-17.2); WHITE BLOOD COUNT 11.7 TH/MM3 (4.0-11.0)
[2017-09-09 16:16] LABS: HEMO FLAGS AUTO DIFF
[2017-09-09 16:22] LABS: ALT (GPT) 26 U/L (10-53); ANION GAP 11 MEQ/L (5-15); AST (GOT) 34 U/L (15-37); BICARBONATE 18.8 MEQ/L (21.0-32.0); BLOOD UREA NITROGEN 15 MG/DL (7-18); CHLORIDE 107 MEQ/L (98-107); GLOMERULAR FILTRATION RATE 58 ML/MIN (>89); POTASSIUM 3.7 MEQ/L (3.5-5.1); SODIUM (NA) 137 MEQ/L (136-145)
[2017-09-09 16:34] LABS: ALKALINE PHOSPHATASE 60 U/L (45-117); TOTAL BILIRUBIN ADULT 1.1 MG/DL (0.2-1.0)
[2017-09-09 16:37] LABS: CALCIUM-PROTEIN CORRECTED 7.1 MG/DL (8.5-10.1)
[2017-09-09 16:50] LABS: BANDS 63 % (0-6); METAMYELOCYTES 2 % (0-1); NEUTROPHIL # MANUAL DIFF 10.8 TH/MM3 (1.8-7.7); OVALOCYTES 1+ (NORMAL); POLYS (SEG NEUTROPHILS) 27 % (16-70); WBC DIFF SAMPLE 100
[2017-09-09 16:51] LABS: PLATELET ESTIMATE SMEAR HIGH (NORMAL); PLATELET MORPHOLOGY NORMAL (NORMAL); SCAN/DIFF FINAL DIFF MANUAL
[2017-09-09 16:52] LABS: TOXIC VACUOLATION PRESENT (NONE SEEN)
[2017-09-09] MEDS ORDERED: LEVOFLOXACIN 750 MG PREMIX INJ 150 ML IV SCH (17:00)
[2017-09-09] MEDS: ENOXAPARIN SODIUM 40 MG/0.4 ML SYRINGE SQ SCH (17:22)
[2017-09-09] MEDS ORDERED: CALCIUM CHLORIDE INJ 1 GM in DEXTROSE 5% IN WATER 100ML INJ 100 ML IV ONE ×2 (17:30)
[2017-09-09] MEDS: fentaNYL DRIP 250 ML IV PRN (18:23)
[2017-09-10] VITALS (13 sets, daily range): BP systolic 100–112; BP diastolic 54–62; PULSE 94–114; RESP 16–17; TEMP 97.7–99; O2SAT 93–97
[2017-09-10] MEDS: metroNIDAZOLE 500 MG INJ 100 ML IV SCH ×4 (03:07→21:46)
[2017-09-10] MEDS: VASOPRESSIN INJ 40 UNITS in DEXTROSE 5% IN WATER 100ML INJ 98 ML IV SCH ×6 (03:29→20:04)
[2017-09-10] MEDS: VANCOMYCIN INJ 1,750 MG in SODIUM CHLORID 0.9% 500 ML INJ 500 ML IV SCH ×2 (03:30→16:00)
[2017-09-10] MEDS: NOREPINEPHRINE-DEXTROSE DRIP 250 ML IV PRN ×3 (03:39→16:56)
[2017-09-10 05:28] LABS: AUTOMATED NEUTROPHIL # 7.3 TH/MM3 (1.8-7.7); BASOPHIL % 0.2 % (0.0-2.0); EOSINOPHIL % 0.1 % (0.0-4.0); HEMATOCRIT 27.9 % (35.0-46.0); LYMPH % 4.9 % (9.0-44.0); LYMPHOCYTE # 0.4 TH/MM3 (1.0-4.8); MEAN CELL VOLUME 89.9 FL (80.0-100.0); MEAN CORPUSCULAR HEMOGLOBIN 29.2 PG (27.0-34.0); MEAN CORPUSCULAR HGB CONC 32.5 % (32.0-36.0); MONO % 3.2 % (0.0-8.0); NEUT % 91.6 % (16.0-70.0); PLATELET COUNT 297 TH/MM3 (150-450); RED BLOOD COUNT 3.11 MIL/MM3 (4.00-5.30); RED CELL DISTRIBUTION WIDTH 18.1 % (11.6-17.2)
[2017-09-10 05:33] LABS: HEMO FLAGS AUTO DIFF
[2017-09-10] MEDS: PCA - TOTAL MG MORPHINE DELIVERED PER SHIFT SCH (06:00)
[2017-09-10 06:07] LABS: BICARBONATE 17.7 MEQ/L (21.0-32.0); CALCIUM-PROTEIN CORRECTED 7.5 MG/DL (8.5-10.1); POTASSIUM 3.9 MEQ/L (3.5-5.1); TOTAL BILIRUBIN ADULT 0.9 MG/DL (0.2-1.0)
--- NOTE | 2017-09-10 06:15 | RADRPT ---
EXAM DATE/TIME: 09/10/2017 05:28 [facility] COMPARISON: CHEST SINGLE AP, September 08, 2017, 21:32. INDICATIONS : Respiratory disease. MEDICAL HISTORY : Rheumatoid arthritis. Seizures. SURGICAL HISTORY : Cholecystectomy. Gastric sleeve. ENCOUNTER: Subsequent ACUITY: 4 - 6 days PAIN SCORE: Non-responsive. LOCATION: Bilateral chest FINDINGS: A single AP semierect portable view the chest was obtained. The patient is mildly rotated. The study is Midinspiratory with increased opacity in both lungs left greater than right. The heart size appear s mildly prominent. The endotracheal tube remains in place with the tip approximately 3 cm above the jb. The nasogastric tube remains in place. Multiple overlying echocardiogram leads are present. T he right internal jugular central venous line is unchanged. CONCLUSION: Suboptimal Midinspiratory mildly rotated study with increased opacity greatest in the left lung. This could indicate infiltrate or could be partially artifactual and due to the Midinspir atory view and rotation. Yuri Holt MD on September 10, 2017 at 6:11 Board Certified Radiologist. This report was verified electronically.
[2017-09-10 06:21] LABS: BANDS 59 % (0-6); POLYS (SEG NEUTROPHILS) 28 % (16-70); TOXIC GRANULATION 1+ (NORMAL); TOXIC VACUOLATION PRESENT (NONE SEEN); WBC DIFF SAMPLE 100
[2017-09-10 06:22] LABS: KERATOCYTES 1+ (NORMAL); PLATELET ESTIMATE SMEAR NORMAL (NORMAL); PLATELET MORPHOLOGY NORMAL (NORMAL); SCAN/DIFF FINAL DIFF MANUAL
[2017-09-10] MEDS: HYDROCORTISONE SOD SUCCINATE 100 MG VIAL IV PUSH SCH ×3 (06:41→21:25)
[2017-09-10] MEDS: ENOXAPARIN SODIUM 40 MG/0.4 ML SYRINGE SQ SCH ×2 (06:41→16:58)
[2017-09-10] MEDS ORDERED: SODIUM BICARBONATE 8.4% INJ 50 MEQ/50 ML SYR IV PUSH ONE (07:45)
--- NOTE | 2017-09-10 07:53 | HHI.CCPN ---
Subjective Remarks/Hospital Course 61-year-old morbidly obese female presents, patient of Dr. Epstein, status post gastric sleeve 08-22-17 now presents with nonbloody emesis and unable to have a bowel movement for a couple days. She states to get that bowel movement she had a use a glycerin suppository and it was just loose. He was taken emergently to operating room and was found to have a small bowel ischemia. She underwent laparoscopic small bowel resection by Dr. Epstein and is postoperatively admitted to critical care unit SUBJ 09/09/17: Remains very critically ill. Profound septic shock requiring Levophed at 40 mcg/m, Des-Synephrine at 500 mcg/m, vasopressin at 0.04 international units, and to be demand 5 g per KG per minute. Urine output 150 mL overnight. Maintaining oxygen saturation. A.m. labs are pending at this time. Surprisingly patient is still mentating able to communicate. Remains on IV fentanyl infusion for pain control. Operative report is pending at this time. Received total of 9 L of crystalloid postoperatively. Receiving 2 units of PRBC. I will replace calcium. Lactic acid 3.5 at 4 AM 09/10: Critically ill but stable. Levophed down to 12 mcg/min, vasopressin at 0.04 IU. Uo 650 ml in 24 hours, bilateral abd drains with 1 L output. Right drain had greenish output overnight and now serosanguineous. D/ W Dr Epstein- he confirms perforation and gross contamination Objective Vital Signs Date Time Temp Pulse Resp B/P (MAP) Pulse Ox O2 Delivery O2 Flow Rate FiO2 09/10/17 04:01 95 40 09/10/17 04:00 99.0 114 16 110/60 (77) 09/07/17 14:36 Room Air Intake and Output 09/10/17 09/10/17 09/11/17 08:00 16:00 00:00 Intake Total 450 ml Output Total 1105 ml Balance -655 ml Result Diagram: 09/10/17 0510 09/10/17 0510 Other Results Laboratory Tests Test 09/09/17 08:26 Blood Gas Puncture Site ART LINE Blood Gas Patient Temperature 98.6 Blood Gas HCO3 18 mmol/L (22-26) Blood Gas Base Excess -6.4 mmol/L (-2-2) Blood Gas Oxygen Saturation 96 % (90-100) Arterial Blood pH 7.38 (7.380-7.420) Arterial Blood Partial Pressure CO2 31 mmHg (38-42) Arterial Blood Partial Pressure O2 163 mmHg (61-120) Arterial Blood Oxygen Content 12.8 Vol % (12.0-20.0) Arterial Blood Carboxyhemoglobin 1.4 % (0-4) Arterial Blood Methemoglobin 1.5 % (0-2) Blood Gas Hemoglobin 9.2 G/DL (12.0-16.0) Oxygen Delivery Device VENTILATOR Blood Gas Ventilator Setting Blood Gas Inspired Oxygen 50 % Objective Remarks Infusions: Levophed at 12 mcg/m Vasopressin at 0.04 international units GENERAL: Obese female sedated and intubated. SKIN: Warm and dry. HEAD: Normocephalic. EYES: No scleral icterus. No injection or drainage. NECK: Supple, trachea midline. No JVD or lymphadenopathy. Orotracheally intubated CARDIOVASCULAR: Tachycardic rate and rhythm. Septic shock on 2 pressors. Flow trac-in place RESPIRATORY: Breath sounds equal bilaterally. No accessory muscle use. GASTROINTESTINAL: Abdomen soft, tender, distended. Morbidly obese. Bilateral ROSSI drains in place 1L combined output in 24 hour. Greenish drainage from right drain. Trochar incisions sites CDI MUSCULOSKELETAL: No cyanosis, or edema. NEURO EXAM: Sedated and intubated, following commands while off sedation. Moves all extremities. Pupils are round, reactive to light. Urinary Catheter: Yes Assessment to: Continue Vascular Central Line Catheter: Yes Assessment to: Continue A/P Assessment and Plan A/P: NEURO: Seizure disorder - Fentanyl infusion for pain control, Versed gtt for vent synchrony - Keppra IV RESP: Acute hypoxemic respiratory failure - Continue mechanical ventilation/PRVC mode - No weaning until hemodynamically stable - ABG, CXR daily - Vent bundle - DuoNeb every 6 hours scheduled and when necessary CVS: Septic shock Lactic acidosis - Right femoral arterial line placed and flow track monitoring initiated 09/09 - Flow trac reading consistent with septic shock with peripheral vasodilation and high CO - Continue Levophed and vasopressin. s/p Aggressive IV fluid resuscitation, postop received 9 L of normal saline, 2 units of PRBC - Lactic acid 6.1 yesterday down to 2.9 - Hydrocortisone stress dose - DC NS after starting TPN GI: Small bowel ischemia/Perforation Peritonitis - Status post resection and wash out for SB perforation with gross contamination - Monitor lactic acidosis - Further management per Dr. Epstein general surgery - NPO, IV Protonix. Start TPN today HEME: Anemia - Volume loss - Transfusing 2 units of PRBC - Monitor H&H ID: Septic shock Peritonitis - Broad-spectrum antibiotic - Levaquin, Flagyl, Diflucan, vancomycin - Added cefepime 2 g IV every 8 hours for antipseudomonal coverage 09/09 - Blood cultures, urine culture follow up - ID consulted ENDO: Diabetes mellitus Hypocalcemia - Insulin sliding scale - Electrolyte replacement per protocol DVT GI prophylaxis - Teds SCDs - Pharmacological DVT prophylaxis Lovenox 40 mg subcutaneous every 12 - Protonix Critical Care: The total critical care time was 45 minutes. Time to perform other separately billable procedures was not included in the critical care time. D/W Dr. Hernandez, and updated sister at bedside Kieran Salgado MD Sep 10, 2017 07:53
[2017-09-10] MEDS: INSULIN ASPART SUPPLEMENTAL SCALE SQ SCH ×4 (08:00→21:00)
--- NOTE | 2017-09-10 08:17 | HHI.PR ---
Subjective Subjective Notes pt on vent sedated on pressors Objective Vitals/I&O Vital Signs Date Time Temp Pulse Resp B/P (MAP) Pulse Ox O2 Delivery O2 Flow Rate FiO2 09/10/17 04:01 95 40 09/10/17 04:00 99.0 114 16 110/60 (77) 09/07/17 14:36 Room Air Labs Laboratory Tests Test 09/09/17 08:26 09/09/17 09:45 09/09/17 13:50 09/09/17 15:50 Blood Gas Puncture Site ART LINE Blood Gas Patient Temperature 98.6 Blood Gas HCO3 18 Blood Gas Base Excess -6.4 Blood Gas Oxygen Saturation 96 Arterial Blood pH 7.38 Arterial Blood Partial Pressure CO2 31 Arterial Blood Partial Pressure O2 163 Arterial Blood Oxygen Content 12.8 Arterial Blood Carboxyhemoglobin 1.4 Arterial Blood Methemoglobin 1.5 Blood Gas Hemoglobin 9.2 Oxygen Delivery Device VENTILATOR Blood Gas Ventilator Setting Blood Gas Inspired Oxygen 50 Urine Color YELLOW Urine Turbidity CLOUDY Urine pH 6.0 Urine Specific [place] 1.020 Urine Protein 30 Urine Glucose (UA) 70 Urine Ketones NEG Urine Occult Blood NEG Urine Nitrite NEG Urine Bilirubin NEG Urine Urobilinogen 2.0 Urine Leukocyte Esterase SMALL Urine RBC 5 Urine WBC 48 Urine Squamous Epithelial Cells 13 Urine Transitional Epithelial Cells 4 Urine Amorphous Sediment MOD Urine Bacteria MOD Urine Hyaline Casts 14 Urine Granular Casts 14 Urine Mucus MANY Microscopic Urinalysis Comment CULTURE INDICATED Lactic Acid Level 6.1 White Blood Count 11.7 Red Blood Count 3.38 Hemoglobin 10.2 Hematocrit 30.7 Mean Corpuscular Volume 90.9 Mean Corpuscular Hemoglobin 30.1 Mean Corpuscular Hemoglobin Concent 33.1 Red Cell Distribution Width 17.3 Platelet Count 445 Mean Platelet Volume 7.0 Neutrophils (%) (Auto) 89.0 Lymphocytes (%) (Auto) 5.7 Monocytes (%) (Auto) 5.1 Eosinophils (%) (Auto) 0.1 Basophils (%) (Auto) 0.1 Neutrophils # (Auto) 10.4 Lymphocytes # (Auto) 0.7 Monocytes # (Auto) 0.6 Eosinophils # (Auto) 0.0 Basophils # (Auto) 0.0 CBC Comment AUTO DIFF Differential Total Cells Counted 100 Neutrophils % (Manual) 27 Band Neutrophils % 63 Lymphocytes % 6 Monocytes % 2 Neutrophils # (Manual) 10.8 Metamyelocytes 2 Differential Comment FINAL DIFF MANUAL Toxic Vacuolation PRESENT Platelet Estimate HIGH Platelet Morphology Comment NORMAL Ovalocytes 1+ Blood Urea Nitrogen 15 Creatinine 0.97 Random Glucose 219 Total Protein 4.2 Albumin 1.9 Calcium Level 5.8 Alkaline Phosphatase 60 Aspartate Amino Transf (AST/SGOT) 34 Alanine Aminotransferase (ALT/SGPT) 26 Total Bilirubin 1.1 Sodium Level 137 Potassium Level 3.7 Chloride Level 107 Carbon Dioxide Level 18.8 Anion Gap 11 Estimat Glomerular Filtration Rate 58 Protein Corrected Calcium 7.1 Troponin I LESS THAN 0.02 Test 09/09/17 20:20 09/09/17 23:00 09/10/17 05:10 Lactic Acid Level 3.8 2.9 Troponin I LESS THAN 0.02 White Blood Count 8.0 Red Blood Count 3.11 Hemoglobin 9.1 Hematocrit 27.9 Mean Corpuscular Volume 89.9 Mean Corpuscular Hemoglobin 29.2 Mean Corpuscular Hemoglobin Concent 32.5 Red Cell Distribution Width 18.1 Platelet Count 297 Mean Platelet Volume 6.8 Neutrophils (%) (Auto) 91.6 Lymphocytes (%) (Auto) 4.9 Monocytes (%) (Auto) 3.2 Eosinophils (%) (Auto) 0.1 Basophils (%) (Auto) 0.2 Neutrophils # (Auto) 7.3 Lymphocytes # (Auto) 0.4 Monocytes # (Auto) 0.3 Eosinophils # (Auto) 0.0 Basophils # (Auto) 0.0 CBC Comment AUTO DIFF Differential Total Cells Counted 100 Neutrophils % (Manual) 28 Band Neutrophils % 59 Lymphocytes % 9 Monocytes % 4 Neutrophils # (Manual) 7.0 Differential Comment FINAL DIFF MANUAL Toxic Granulation 1+ Toxic Vacuolation PRESENT Platelet Estimate NORMAL Platelet Morphology Comment NORMAL Keratocytes 1+ Blood Urea Nitrogen 18 Creatinine 0.99 Random Glucose 143 Total Protein 4.6 Albumin 2.3 Calcium Level 6.3 Alkaline Phosphatase 55 Aspartate Amino Transf (AST/SGOT) 27 Alanine Aminotransferase (ALT/SGPT) 22 Total Bilirubin 0.9 Sodium Level 136 Potassium Level 3.9 Chloride Level 106 Carbon Dioxide Level 17.7 Anion Gap 12 Estimat Glomerular Filtration Rate 57 Protein Corrected Calcium 7.5 Date/Time Source Procedure Growth Status 09/09/17 09:45 Blood Peripheral Aerobic Blood Culture Pending Received 09/09/17 09:45 Blood Peripheral Anaerobic Blood Culture Pending Received 09/08/17 21:10 Sputum Oral Tracheal Aspirate Gram Stain - Final Resulted 09/08/17 21:10 Sputum Oral Tracheal Aspirate Sputum Culture - Preliminary IMMATURE GROWTH - REINCUBATE Resulted 09/09/17 09:45 Urine Clean Catch Urine Culture Pending Received Radiology Last Impressions Chest X-Ray 09/10/17 0600 Signed Impressions: Service Date/Time: Sunday, September 10, 2017 05:28 - CONCLUSION: Suboptimal Midinspiratory mildly rotated study with increased opacity greatest in the left lung. This could indicate infiltrate or could be partially artifactual and due to the Midinspiratory view and rotation. Yuri Holt MD Abdomen Fluoroscopy 09/08/17 0000 Signed Impressions: Service Date/Time: Friday, September 08, 2017 12:04 - CONCLUSION: Uncomplicated nasogastric tube placement as above. Tae Archuleta Jr., MD Abdomen/Pelvis CT 09/07/17 0000 Signed Impressions: Service Date/Time: August 12:20 - CONCLUSION: 1. Small bowel obstruction with transition point in the lower abdomen adjacent to an area of indurated mesentery. 2. Marked dilation of the intrahepatic biliary system , up to 2.2 cm, and some mild distention of the intrahepatic biliary system. Differential considerations include a distal biliary obstruction and reservoir effect from prior cholecystectomy. Tae Roblero MD Abdomen: Post-op tenderness Extremities: SCD's on Narrative Exam david serous drainage Wound Wound : Wound Location: Abdomen Drainage: Clear, Cloudy A/P Assessment and Plan POD # 2 S/P Laparoscopic SBR for gangrenous small bowel Septic wean pressors as yunier cont vent support ABX per ID Husam Hernandez MD Sep 10, 2017 08:17
[2017-09-10] MEDS ORDERED: CALCIUM CHLORIDE INJ 1 GM in SODIUM CHLORIDE 0.9% INJ 100 ML IV ONE (09:00)
[2017-09-10] MEDS: FLUCONAZOLE 400 MG PREMIX BAG 200 ML IV SCH (09:24)
[2017-09-10] MEDS: ALBUMIN 25% INJ 100 ML IV SCH ×3 (09:24→23:30)
[2017-09-10] MEDS: levETIRAcetam INJ 500 MG in SODIUM CHLORIDE 0.9% INJ 100 ML IV SCH ×2 (09:25→21:26)
[2017-09-10] MEDS: SODIUM CHLORIDE 0.9% FLUSH 10 ML FLUSH IV FLUSH SCH ×2 (09:25→21:00)
[2017-09-10] MEDS: PANTOPRAZOLE SODIUM 40 MG VIAL IV PUSH SCH (09:25)
[2017-09-10] MEDS: CEFEPIME INJ 2,000 MG in SODIUM CHLORIDE 0.9% INJ 100 ML IV SCH ×3 (09:25→23:30)
[2017-09-10] MEDS: CHLORHEXIDINE 0.12% (ORAL KIT) 15 ML CUP OROPHARYNG SCH ×2 (09:26→20:00)
--- NOTE | 2017-09-10 12:46 | HHI.IDPN ---
Note Infectious Disease Note Patient is on the vent. On 10mcg of levophed. Afebrile. sedated. ESTELLA RN. Presented to the emergency department on September 07 and was diagnosed with small bowel obstruction. She was taken to surgery and was found to have perforated small bowel and she underwent small bowel resection. The patient previously had elective gastric sleeve on 08/22/2017. After that she was having nausea and vomiting and then can then difficulty passing stools, upon the surgical procedure the patient reportedly had some purulent material within the abdomen. PAST MEDICAL HISTORY 1. Rheumatoid arthritis 2. Hypothyroidism 3. Gout 4. Depression 5. Seizure disorder 6. Attention deficit disorder 7. Cholecystectomy Tonsillectomy 8. Ankle arthroplasty 9. Gastric sleeve. 08/22/17. ALLERGIES PROPOXYPHENE DARVOCET ADHESIVE TAPES ANTIBIOTICS 1. Vancomycin 2. Cefepime. 3. Fluconazole. 4. Metronidazole. Current Medications Medications (Trade) Dose Ordered Sig/Daniel Route PRN Reason Start Time Stop Time Status Last Admin Dose Admin Miscellaneous Information 1 Q3D T-DERMAL 09/07/17 18:00 Scopolamine (Transderm-Scop 1.5 Mg Patch.72 Hr) 1 patch Q3D T-DERMAL 09/07/17 18:00 Pantoprazole Sodium (Protonix Inj) 40 mg DAILY IV PUSH 09/08/17 09:00 09/10/17 09:25 Sodium Chloride (NS Flush) 2 ml UNSCH PRN IV FLUSH FLUSH AFTER USING IV ACCESS 09/08/17 19:15 Sodium Chloride (NS Flush) 2 ml BID IV FLUSH 09/08/17 21:00 09/10/17 09:25 Ondansetron HCl (Zofran Inj) 4 mg Q4H PRN IV PUSH NAUSEA OR VOMITING 09/08/17 19:15 09/08/17 20:00 Enoxaparin Sodium (Lovenox Inj) 40 mg Q12H SQ 09/09/17 18:00 09/10/17 06:41 Potassium Chloride 100 ml @ 50 mls/hr Q2H PRN IV For Potassium 2.8 - 3.2 mEq/L 09/08/17 21:00 09/09/17 01:50 Potassium Chloride 100 ml @ 50 mls/hr Q2H PRN IV For Potassium 2.8 - 3.2 mEq/L 09/08/17 21:00 Potassium Bicarb/ Potassium Chloride (K-Lyte Cl Eff) 50 meq UNSCH PRN PO For Potassium 3.3 - 3.5 mEq/L 09/08/17 21:00 Potassium Chloride 100 ml @ 25 mls/hr UNSCH PRN IV For Potassium 3.3 - 3.5 mEq/L 09/08/17 21:00 Potassium Chloride 100 ml @ 50 mls/hr Q2H PRN IV For Potassium 3.3 - 3.5 mEq/L 09/08/17 21:00 Magnesium Sulfate 4 gm/Sodium Chloride 100 ml @ 50 mls/hr UNSCH PRN IV For Magnesium 0.9 - 1.1 mg/dL 09/08/17 21:00 Magnesium Oxide (Mag-Ox) 800 mg UNSCH PRN PO For Magnesium 1.2 - 1.6 mg/dL 09/08/17 21:00 Magnesium Sulfate 2 gm/Sodium Chloride 100 ml @ 50 mls/hr UNSCH PRN IV For Magnesium 1.2 - 1.6 mg/dL 09/08/17 21:00 Potassium Phosphate (K-Phos) 2,000 mg Q4H PRN PO For Phosphorus < 2.5 mg/dL 09/08/17 21:00 Sodium Phosphate 30 mmol/Sodium Chloride 250 ml @ 42 mls/hr UNSCH PRN IV For Phosphorus < 2.5 mg/dL 09/08/17 21:00 Potassium Phosphate (K-Phos) 2,000 mg UNSCH PRN PO/TUBE SEE LABEL COMMENTS 09/08/17 21:00 Potassium Phosphate 30 mmol/ Sodium Chloride 260 ml @ 42 mls/hr UNSCH PRN IV SEE LABEL COMMENTS 09/08/17 21:00 Fentanyl Citrate 250 ml @ 5 mls/hr TITRATE PRN IV SEDATION 09/08/17 21:15 09/09/17 18:23 Norepinephrine Bitartrate 250 ml @ 7.5 mls/hr TITRATE PRN IV Blood pressure management 09/08/17 21:15 09/10/17 09:24 Metronidazole 100 ml @ 100 mls/hr Q6H IV 09/09/17 03:00 09/10/17 09:24 Fluconazole/ Sodium Chloride 200 ml @ 100 mls/hr Q24H IV 09/09/17 08:00 09/11/17 09:59 09/10/17 09:24 Terbutaline Sulfate (Brethine Inj) 1 mg UNSCH PRN SQ For Extravasation 09/09/17 01:45 Pharmacy Profile Note 0 ml @ 0 mls/hr UNSCH OTHER 09/09/17 01:45 Hydrocortisone Sodium Succinate (SoluCORTEF INJ) 100 mg Q8HR IV PUSH 09/09/17 06:00 09/10/17 06:41 Levetriacetam 500 mg/Sodium Chloride 105 ml @ 420 mls/hr Q12HR IV 09/09/17 09:00 09/10/17 09:25 Dextrose (D50w (Vial) Inj) 50 ml UNSCH PRN IV PUSH HYPOGLYCEMIA-SEE COMMENTS 09/09/17 06:00 Glucagon (Glucagon Inj) 1 mg UNSCH PRN OTHER HYPOGLYCEMIA-SEE COMMENTS 09/09/17 06:00 Insulin Aspart (NovoLOG SUPPLEMENTAL SCALE) 1 ACHS SLIDING SCALE SQ 09/09/17 08:00 09/09/17 21:20 Vasopressin 40 units/Dextrose 100 ml @ 6 mls/hr [id number] IV 09/09/17 06:15 09/10/17 03:29 Cefepime HCl 2000 mg/Sodium Chloride 100 ml @ 200 mls/hr Q8H IV 09/09/17 08:00 09/10/17 09:25 Albumin Human 100 ml @ 60 mls/hr Q8H IV 09/09/17 08:00 09/10/17 09:24 Midazolam HCl 100 ml @ 2 mls/hr TITRATE PRN IV SEDATION 09/09/17 08:00 09/09/17 22:27 Miscellaneous Information SPECIFIC LAB TO BE DRAWN:VANCO DATE TO... ONCE ONCE .XX 09/10/17 15:45 09/10/17 15:46 Vancomycin HCl 1750 mg/Sodium Chloride 517.5 ml @ 250 mls/hr Q12H IV 09/09/17 16:00 09/10/17 03:30 Chlorhexidine Gluconate (Peridex 0.12% Liq) 15 ml Q12H OROPHARYNG 09/10/17 08:00 09/10/17 09:26 Levothyroxine Sodium (Synthroid Inj) 25 mcg DAILY@06 IV PUSH 09/11/17 06:00 Multivitamins 10 ml/Folic Acid 1 mg/Insulin Human Regular 20 units/ Amino Acids/ Electrolytes/ Dextrose 2,010.4 ml @ 75 mls/hr Q24H IV-CENTRAL 09/10/17 20:00 SOCIAL HISTORY The patient is . Rare alcohol use noted. No tobacco. Vital Signs Date Time Temp Pulse Resp B/P (MAP) Pulse Ox O2 Delivery O2 Flow Rate FiO2 09/10/17 12:13 94 40 09/10/17 09:24 108 108/60 09/10/17 09:04 94 40 09/10/17 04:01 95 40 09/10/17 04:00 99.0 114 16 94 110/60 (77) 09/10/17 04:00 40 09/10/17 03:39 114 112/60 09/10/17 03:29 114 111/60 09/10/17 00:00 40 09/10/17 00:00 98.9 101 17 94 112/62 (79) 09/09/17 23:22 95 40 09/09/17 22:28 115 118/64 09/09/17 20:47 95 40 09/09/17 20:00 99.1 116 17 96 124/67 (86) 09/09/17 20:00 40 09/09/17 18:24 117 118/68 09/09/17 18:16 118 123/70 09/09/17 17:18 95 40 09/09/17 16:00 98.6 114 21 95 114/62 (79) 09/09/17 16:00 50 09/09/17 15:40 116 114/62 09/09/17 14:53 122 128/64 09/09/17 14:28 122 134/66 09/09/17 14:00 122 128/62 09/09/17 13:07 116 124/64 09/09/17 13:07 116 133/65 Laboratory Tests Test 09/09/17 13:50 09/09/17 15:50 09/09/17 20:20 09/09/17 23:00 Lactic Acid Level 6.1 mmol/L 3.8 mmol/L White Blood Count 11.7 TH/MM3 Red Blood Count 3.38 MIL/MM3 Hemoglobin 10.2 GM/DL Hematocrit 30.7 % Mean Corpuscular Volume 90.9 FL Mean Corpuscular Hemoglobin 30.1 PG Mean Corpuscular Hemoglobin Concent 33.1 % Red Cell Distribution Width 17.3 % Platelet Count 445 TH/MM3 Mean Platelet Volume 7.0 FL Neutrophils (%) (Auto) 89.0 % Lymphocytes (%) (Auto) 5.7 % Monocytes (%) (Auto) 5.1 % Eosinophils (%) (Auto) 0.1 % Basophils (%) (Auto) 0.1 % Neutrophils # (Auto) 10.4 TH/MM3 Lymphocytes # (Auto) 0.7 TH/MM3 Monocytes # (Auto) 0.6 TH/MM3 Eosinophils # (Auto) 0.0 TH/MM3 Basophils # (Auto) 0.0 TH/MM3 CBC Comment AUTO DIFF Differential Total Cells Counted 100 Neutrophils % (Manual) 27 % Band Neutrophils % 63 % Lymphocytes % 6 % Monocytes % 2 % Neutrophils # (Manual) 10.8 TH/MM3 Metamyelocytes 2 % Differential Comment FINAL DIFF MANUAL Toxic Vacuolation PRESENT Platelet Estimate HIGH Platelet Morphology Comment NORMAL Ovalocytes 1+ Blood Urea Nitrogen 15 MG/DL Creatinine 0.97 MG/DL Random Glucose 219 MG/DL Total Protein 4.2 GM/DL Albumin 1.9 GM/DL Calcium Level 5.8 MG/DL Alkaline Phosphatase 60 U/L Aspartate Amino Transf (AST/SGOT) 34 U/L Alanine Aminotransferase (ALT/SGPT) 26 U/L Total Bilirubin 1.1 MG/DL Sodium Level 137 MEQ/L Potassium Level 3.7 MEQ/L Chloride Level 107 MEQ/L Carbon Dioxide Level 18.8 MEQ/L Anion Gap 11 MEQ/L Estimat Glomerular Filtration Rate 58 ML/MIN Protein Corrected Calcium 7.1 MG/DL Troponin I LESS THAN 0.02 NG/ML LESS THAN 0.02 NG/ML Test 09/10/17 05:10 White Blood Count 8.0 TH/MM3 Red Blood Count 3.11 MIL/MM3 Hemoglobin 9.1 GM/DL Hematocrit 27.9 % Mean Corpuscular Volume 89.9 FL Mean Corpuscular Hemoglobin 29.2 PG Mean Corpuscular Hemoglobin Concent 32.5 % Red Cell Distribution Width 18.1 % Platelet Count 297 TH/MM3 Mean Platelet Volume 6.8 FL Neutrophils (%) (Auto) 91.6 % Lymphocytes (%) (Auto) 4.9 % Monocytes (%) (Auto) 3.2 % Eosinophils (%) (Auto) 0.1 % Basophils (%) (Auto) 0.2 % Neutrophils # (Auto) 7.3 TH/MM3 Lymphocytes # (Auto) 0.4 TH/MM3 Monocytes # (Auto) 0.3 TH/MM3 Eosinophils # (Auto) 0.0 TH/MM3 Basophils # (Auto) 0.0 TH/MM3 CBC Comment AUTO DIFF Differential Total Cells Counted 100 Neutrophils % (Manual) 28 % Band Neutrophils % 59 % Lymphocytes % 9 % Monocytes % 4 % Neutrophils # (Manual) 7.0 TH/MM3 Differential Comment FINAL DIFF MANUAL Toxic Granulation 1+ Toxic Vacuolation PRESENT Platelet Estimate NORMAL Platelet Morphology Comment NORMAL Keratocytes 1+ Blood Urea Nitrogen 18 MG/DL Creatinine 0.99 MG/DL Random Glucose 143 MG/DL Total Protein 4.6 GM/DL Albumin 2.3 GM/DL Calcium Level 6.3 MG/DL Alkaline Phosphatase 55 U/L Aspartate Amino Transf (AST/SGOT) 27 U/L Alanine Aminotransferase (ALT/SGPT) 22 U/L Total Bilirubin 0.9 MG/DL Sodium Level 136 MEQ/L Potassium Level 3.9 MEQ/L Chloride Level 106 MEQ/L Carbon Dioxide Level 17.7 MEQ/L Anion Gap 12 MEQ/L Estimat Glomerular Filtration Rate 57 ML/MIN Lactic Acid Level 2.9 mmol/L Protein Corrected Calcium 7.5 MG/DL IMAGING: Chest X-Ray 09/10/17 0600 Signed Impressions: Service Date/Time: Sunday, September 10, 2017 05:28 - CONCLUSION: Suboptimal Midinspiratory mildly rotated study with increased opacity greatest in the left lung. This could indicate infiltrate or could be partially artifactual and due to the Midinspiratory view and rotation. Yuri Holt MD Abdomen Fluoroscopy 09/08/17 0000 Signed Impressions: Service Date/Time: Friday, September 08, 2017 12:04 - CONCLUSION: Uncomplicated nasogastric tube placement as above. Tae Archuleta Jr., MD Abdomen/Pelvis CT 09/07/17 0000 Signed Impressions: Service Date/Time: August 12:20 - CONCLUSION: 1. Small bowel obstruction with transition point in the lower abdomen adjacent to an area of indurated mesentery. 2. Marked dilation of the intrahepatic biliary system , up to 2.2 cm, and some mild distention of the intrahepatic biliary system. Differential considerations include a distal biliary obstruction and reservoir effect from prior cholecystectomy. Tae Roblero MD PHYSICAL EXAM: GENERAL: Patient is on the vent. HEENT: No icterus. NECK: Supple. No adenopathy. LUNGS: decreased breath sounds. CARDIAC: Regular rate and rhythm. no murmurs, rubs or gallops. ABDOMEN: Soft, non tender. EXTREMITIES: No clubbing, cyanosis. Trace edema at the hands and feet. SKIN: No rash. IMPRESSION 1. Septic shock. 2. Post exploratory laparotomy and small bowel resection along with lysis of adhesions for small bowel perforation. 3. Peritonitis due to due to small bowel perforation. 4. Acute respiratory failure. RECOMMENDATIONS 1. Continue Cefepime 2. Continue Metronidazole 3. Continue Fluconazole 4. Continue Vancomycin. 5. Monitor blood culture. 6. Monitor urine culture 7. Monitor sputum culture 8. Follow clinical status. D/W Dr Salgado, RN and . Jus Enriquez MD Sep 10, 2017 12:46
[2017-09-10] MEDS: fentaNYL DRIP 250 ML IV PRN (13:04)
[2017-09-10] MEDS ORDERED: PHARMACY ORDERED LAB ONE (15:45)
[2017-09-10] MEDS ORDERED: MULTIVITAMIN INJ 10 ML, FOLIC ACID INJ 1 MG, INSULIN HUMAN REGULAR INJ 20 UNITS in AMIN... IV-CENTRAL SCH (20:00)
[2017-09-10] MEDS: VANCOMYCIN 1,500 MG/NS 500 ML IV SCH ×2 (20:03)
[2017-09-11] VITALS (17 sets, daily range): BP systolic 93–128; BP diastolic 54–70; PULSE 86–104; RESP 16–22; TEMP 97.7–98.8; O2SAT 92–100
[2017-09-11] MEDS: metroNIDAZOLE 500 MG INJ 100 ML IV SCH ×4 (02:05→21:05)
[2017-09-11] MEDS: NOREPINEPHRINE-DEXTROSE DRIP 250 ML IV PRN (02:11)
[2017-09-11] MEDS: MIDAZOLAM 100 MG/100 ML INJ 100 ML IV PRN (02:12)
[2017-09-11 04:36] LABS: AUTOMATED NEUTROPHIL # 10.9 TH/MM3 (1.8-7.7); BASOPHIL % 0.1 % (0.0-2.0); EOSINOPHIL % 0.1 % (0.0-4.0); HEMATOCRIT 25.9 % (35.0-46.0); LYMPH % 3.2 % (9.0-44.0); LYMPHOCYTE # 0.4 TH/MM3 (1.0-4.8); MEAN CELL VOLUME 91.2 FL (80.0-100.0); MEAN CORPUSCULAR HEMOGLOBIN 29.5 PG (27.0-34.0); MEAN CORPUSCULAR HGB CONC 32.3 % (32.0-36.0); MONO % 1.5 % (0.0-8.0); NEUT % 95.1 % (16.0-70.0); PLATELET COUNT 235 TH/MM3 (150-450); RED BLOOD COUNT 2.84 MIL/MM3 (4.00-5.30); RED CELL DISTRIBUTION WIDTH 18.2 % (11.6-17.2); WHITE BLOOD COUNT 11.4 TH/MM3 (4.0-11.0)
[2017-09-11 04:49] LABS: HEMO FLAGS AUTO DIFF
[2017-09-11 04:58] LABS: BICARBONATE 20.9 MEQ/L (21.0-32.0); CALCIUM-PROTEIN CORRECTED 7.5 MG/DL (8.5-10.1); MAGNESIUM 1.1 MG/DL (1.5-2.5); POTASSIUM 3.9 MEQ/L (3.5-5.1); TOTAL BILIRUBIN ADULT 0.9 MG/DL (0.2-1.0)
[2017-09-11] MEDS: HYDROCORTISONE SOD SUCCINATE 100 MG VIAL IV PUSH SCH ×3 (05:43→21:05)
[2017-09-11] MEDS: ENOXAPARIN SODIUM 40 MG/0.4 ML SYRINGE SQ SCH ×2 (05:44→17:38)
[2017-09-11] MEDS: LEVOTHYROXINE SODIUM 100 MCG VIAL IV PUSH SCH (05:44)
--- NOTE | 2017-09-11 05:55 | RADRPT ---
EXAM DATE/TIME: 09/11/2017 04:48 [facility] COMPARISON: CHEST SINGLE AP, September 10, 2017, 5:28. INDICATIONS : Short of breath. MEDICAL HISTORY : Rheumatoid arthritis. Seizures. SURGICAL HISTORY : Cholecystectomy. Gastric sleeve. ENCOUNTER: Subsequent ACUITY: 2 weeks PAIN SCORE: 0/10 LOCATION: Bilateral chest FINDINGS: The ET tube tip is 4.8 cm from the jb. The NG tube is turned into the stomach. There is diffuse c onsolidation silhouetting the heart borders. There is elevation of the right hemidiaphragm. CONCLUSION: Diffuse dense consolidation likely representing diffuse processes such as edema. Compared to the prio r exam, this appears worse. Damian Vang MD on September 11, 2017 at 5:52 Board Certified Radiologist. This report was verified electronically.
[2017-09-11] MEDS ORDERED: BUMETANIDE INJ 1 MG/4 ML VIAL IV PUSH STA (07:05)
--- NOTE | 2017-09-11 07:33 | HHI.CCPN ---
Subjective Remarks/Hospital Course 61-year-old morbidly obese female presents, patient of Dr. Epstein, status post gastric sleeve 08-22-17 now presents with nonbloody emesis and unable to have a bowel movement for a couple days. She states to get that bowel movement she had a use a glycerin suppository and it was just loose. He was taken emergently to operating room and was found to have a small bowel ischemia. She underwent laparoscopic small bowel resection by Dr. Epstein and is postoperatively admitted to critical care unit SUBJ 09/09/17: Remains very critically ill. Profound septic shock requiring Levophed at 40 mcg/m, Des-Synephrine at 500 mcg/m, vasopressin at 0.04 international units, and to be demand 5 g per KG per minute. Urine output 150 mL overnight. Maintaining oxygen saturation. A.m. labs are pending at this time. Surprisingly patient is still mentating able to communicate. Remains on IV fentanyl infusion for pain control. Operative report is pending at this time. Received total of 9 L of crystalloid postoperatively. Receiving 2 units of PRBC. I will replace calcium. Lactic acid 3.5 at 4 AM 09/10: Critically ill but stable. Levophed down to 12 mcg/min, vasopressin at 0.04 IU. Uo 650 ml in 24 hours, bilateral abdominal drains with 1 L output. Right drain had greenish output overnight and now serosanguineous. D/ W Dr Epstein- he confirms perforation and gross contamination 09/11: Remains critically. FiO2 requirement up to 60%, I have increased PEEP to 10. CXR consistent with ARDS versus fluid overload. Creatinine increased to 1.24. Urine output 600 ml in 24 hours. CVP 18-20. Start IV Bumex 1 mg every 12 hours with additional 1 mg dose now. Levophed at 1 mcg/min, vasopressin at 0.04 IU Objective Vital Signs Date Time Temp Pulse Resp B/P (MAP) Pulse Ox O2 Delivery O2 Flow Rate FiO2 09/11/17 06:50 99 110/52 09/11/17 04:07 94 60 09/11/17 04:00 98.8 16 09/07/17 14:36 Room Air Intake and Output 09/11/17 09/11/17 09/12/17 08:00 16:00 00:00 Intake Total 1345 ml Output Total 505 ml Balance 840 ml Result Diagram: 09/11/1741309/11/17413 Objective Remarks Infusions: Levophed at 1 mcg/m Vasopressin at 0.04 international units GENERAL: Obese female sedated and intubated. SKIN: Warm and dry. HEAD: Normocephalic. EYES: No scleral icterus. No injection or drainage. NECK: Supple, trachea midline. No JVD or lymphadenopathy. Orotracheally intubated CARDIOVASCULAR: Tachycardic rate and rhythm. Septic shock on 2 pressors. Flow trac-in place RESPIRATORY: Breath sounds equal bilaterally, with bilateral fine crackles. No accessory muscle use. GASTROINTESTINAL: Abdomen soft, tender, distended. Morbidly obese. Bilateral ROSSI drains in place 460 ml combined output in 24 hour. Slightly cloudy output. Trochar incisions sites CDI MUSCULOSKELETAL: No cyanosis, or edema. NEURO EXAM: Sedated and intubated, following commands while off sedation. Moves all extremities. Pupils are round, reactive to light. A/P Assessment and Plan A/P: NEURO: Seizure disorder - Fentanyl infusion for pain control, Versed gtt for vent synchrony-now turned off - Keppra IV RESP: Acute hypoxemic respiratory failure ARDS - Continue mechanical ventilation/PRVC mode, keep peak pressure <40 (PEEP at 10 and considering morbid obesity) - No weaning until hemodynamically stable - ABG, CXR daily - Vent bundle - DuoNeb every 6 hours scheduled and when necessary - Start diuresis as below - Bilateral pulmonary opacities may be fluid overload versus acute lung injury/ ARDS CVS: Septic shock-improving Lactic acidosis - Right femoral arterial line placed and flow track monitoring initiated 09/09 - Flow trac reading consistent with septic shock with peripheral vasodilation and high CO - Wean to DC Levophed and continue vasopressin. - s/p Aggressive IV fluid resuscitation, postop received 9 L of normal saline, 2 units of PRBC - Start IV bumex 1 mg x1 and Bumex 1 mg IV q12 - Lactic acid 6.1 to 2.9 - Hydrocortisone stress dose - Continue TPN started 09/10/17 GI: Small bowel ischemia/Perforation Peritonitis - POD # 3 S/P Laparoscopic SBR for gangrenous small bowel - Post op surgical management per Dr. Epstein general surgery - NPO, IV Protonix. Started TPN 09/10/17 : Acute kidney injury - ATN most likely from severe septic shock - Due to fluid overload start diuresis as above - Maintain [place] for accurate intake output HEME: Anemia - Volume loss - Transfusing 2 units of PRBC - Monitor H&H ID: Septic shock Peritonitis - Broad-spectrum antibiotic - Levaquin, Flagyl, Diflucan, vancomycin - Added cefepime 2 g IV every 8 hours for antipseudomonal coverage 09/09 - Blood cultures, urine culture follow up - ID consulted ENDO: Diabetes mellitus Hypocalcemia - Insulin sliding scale - Electrolyte replacement per protocol DVT GI prophylaxis - Teds SCDs - Pharmacological DVT prophylaxis Lovenox 40 mg subcutaneous every 12-May need renal adjustment if creatinine climbs - Protonix Critical Care: The total critical care time was 50 minutes. Time to perform other separately billable procedures was not included in the critical care time. D/W Dr. Hernandez, and updated sister at bedside Remains critically ill. There is improvement in septic shock, or there is now evidence of ARDS, severe hypoxemia and acute kidney injury. Family at bedside updated Kieran Salgado MD Sep 11, 2017 07:33
[2017-09-11 07:47] LABS: BLOOD GAS CARBOXYHEMOGLOBIN 0.8 % (0-4); BLOOD GAS HCO3 18 mmol/L (22-26); BLOOD GAS METHEMOGLOBIN 1.3 % (0-2); BLOOD GAS O2 HGB SATURATION 94 % (90-100); BLOOD GAS PCO2 54 mmHg (38-42); BLOOD GAS PO2 91 mmHg (61-120); BLOOD GAS TOTAL HGB 8.2 G/DL (12.0-16.0); TEMP CORR TO 98.6
[2017-09-11 07:48] LABS: CRITICAL VALUE YES; DRAW SITE ART LINE; FIO2 60 %; OXYGEN DEVICE VENTILATOR; STAT YES
[2017-09-11] MEDS: FLUCONAZOLE 400 MG PREMIX BAG 200 ML IV SCH (08:01)
[2017-09-11] MEDS: ALBUMIN 25% INJ 100 ML IV SCH ×3 (08:01→23:06)
[2017-09-11] MEDS: SODIUM CHLORIDE 0.9% FLUSH 10 ML FLUSH IV FLUSH SCH ×2 (08:02→20:44)
[2017-09-11] MEDS: PANTOPRAZOLE SODIUM 40 MG VIAL IV PUSH SCH (08:02)
[2017-09-11] MEDS: CEFEPIME INJ 2,000 MG in SODIUM CHLORIDE 0.9% INJ 100 ML IV SCH ×2 (08:02→19:55)
[2017-09-11] MEDS: CHLORHEXIDINE 0.12% (ORAL KIT) 15 ML CUP OROPHARYNG SCH ×2 (08:28→19:55)
[2017-09-11] MEDS: levETIRAcetam INJ 500 MG in SODIUM CHLORIDE 0.9% INJ 100 ML IV SCH ×2 (08:29→20:44)
[2017-09-11 08:35] LABS: BANDS 40 % (0-6); DOHLE BODIES PRESENT (NONE SEEN); NEUTROPHIL # MANUAL DIFF 11.1 TH/MM3 (1.8-7.7); PLATELET ESTIMATE SMEAR NORMAL (NORMAL); PLATELET MORPHOLOGY NORMAL (NORMAL); POLYS (SEG NEUTROPHILS) 57 % (16-70); SCAN/DIFF FINAL DIFF MANUAL; WBC DIFF SAMPLE 100
[2017-09-11 08:36] LABS: TOXIC VACUOLATION PRESENT (NONE SEEN)
[2017-09-11] MEDS: VANCOMYCIN 1,500 MG/NS 500 ML IV SCH ×2 (08:58)
--- NOTE | 2017-09-11 09:02 | HHI.PR ---
Subjective Subjective Notes Still remains on dynamic vent settings Pressors weaning down Objective Vitals/I&O Vital Signs Date Time Temp Pulse Resp B/P (MAP) Pulse Ox O2 Delivery O2 Flow Rate FiO2 09/11/17 07:40 94 60 09/11/17 06:50 99 110/52 09/11/17 04:00 98.8 16 09/07/17 14:36 Room Air Labs Laboratory Tests Test 09/10/17 15:10 09/11/17 04:14 09/11/17 07:30 Vancomycin Level Trough 26.1 White Blood Count 11.4 Red Blood Count 2.84 Hemoglobin 8.4 Hematocrit 25.9 Mean Corpuscular Volume 91.2 Mean Corpuscular Hemoglobin 29.5 Mean Corpuscular Hemoglobin Concent 32.3 Red Cell Distribution Width 18.2 Platelet Count 235 Mean Platelet Volume 6.8 Neutrophils (%) (Auto) 95.1 Lymphocytes (%) (Auto) 3.2 Monocytes (%) (Auto) 1.5 Eosinophils (%) (Auto) 0.1 Basophils (%) (Auto) 0.1 Neutrophils # (Auto) 10.9 Lymphocytes # (Auto) 0.4 Monocytes # (Auto) 0.2 Eosinophils # (Auto) 0.0 Basophils # (Auto) 0.0 CBC Comment AUTO DIFF Differential Total Cells Counted 100 Neutrophils % (Manual) 57 Band Neutrophils % 40 Lymphocytes % 1 Monocytes % 2 Neutrophils # (Manual) 11.1 Differential Comment FINAL DIFF MANUAL Toxic Vacuolation PRESENT Dohle Bodies PRESENT Platelet Estimate NORMAL Platelet Morphology Comment NORMAL Blood Urea Nitrogen 23 Creatinine 1.24 Random Glucose 246 Total Protein 5.1 Albumin 2.6 Calcium Level 6.5 Magnesium Level 1.1 Alkaline Phosphatase 96 Aspartate Amino Transf (AST/SGOT) 25 Alanine Aminotransferase (ALT/SGPT) 23 Total Bilirubin 0.9 Sodium Level 133 Potassium Level 3.9 Chloride Level 105 Carbon Dioxide Level 20.9 Anion Gap 7 Estimat Glomerular Filtration Rate 44 Protein Corrected Calcium 7.5 Blood Gas Puncture Site ART LINE Blood Gas Patient Temperature 98.6 Blood Gas HCO3 18 Blood Gas Base Excess -9.0 Blood Gas Oxygen Saturation 94 Arterial Blood pH 7.16 Arterial Blood Partial Pressure CO2 54 Arterial Blood Partial Pressure O2 91 Arterial Blood Oxygen Content 11.0 Arterial Blood Carboxyhemoglobin 0.8 Arterial Blood Methemoglobin 1.3 Blood Gas Hemoglobin 8.2 Oxygen Delivery Device VENTILATOR Blood Gas Ventilator Setting Blood Gas Inspired Oxygen 60 Date/Time Source Procedure Growth Status 09/10/17 08:30 Blood Peripheral Aerobic Blood Culture Pending Received 09/10/17 08:30 Blood Peripheral Anaerobic Blood Culture Pending Received 09/08/17 21:10 Sputum Oral Tracheal Aspirate Gram Stain - Final Resulted 09/08/17 21:10 Sputum Culture - Preliminary Gram Negative Robel Resulted 09/09/17 09:45 Urine Clean Catch Urine Culture - Preliminary NO GROWTH IN 24 HOURS. Resulted Radiology Last Impressions Chest X-Ray 09/10/17 0600 Signed Impressions: Service Date/Time: Sunday, September 10, 2017 05:28 - CONCLUSION: Suboptimal Midinspiratory mildly rotated study with increased opacity greatest in the left lung. This could indicate infiltrate or could be partially artifactual and due to the Midinspiratory view and rotation. Yuri Holt MD Abdomen Fluoroscopy 09/08/17 0000 Signed Impressions: Service Date/Time: Friday, September 08, 2017 12:04 - CONCLUSION: Uncomplicated nasogastric tube placement as above. Tae Archuleta Jr., MD Abdomen/Pelvis CT 09/07/17 0000 Signed Impressions: Service Date/Time: August 12:20 - CONCLUSION: 1. Small bowel obstruction with transition point in the lower abdomen adjacent to an area of indurated mesentery. 2. Marked dilation of the intrahepatic biliary system , up to 2.2 cm, and some mild distention of the intrahepatic biliary system. Differential considerations include a distal biliary obstruction and reservoir effect from prior cholecystectomy. Tae Roblero MD Cardiovascular: Regular Lungs: Other (diminished in the bases with crackles throughout) Abdomen: Other (Intermittent bowel sounds) Wound Wound #1: Wound Location: Abdomen Appearance: Clean & Dry Drainage: Clear Wound #2: Wound Location: Abdomen Appearance: Clean & Dry Drainage: Cloudy A/P Assessment and Plan 61yo F with small bowel perforation and peritonitis -Place right abdominal drain to bulb suction -Continue with ABX therapy, imput from infectious disease appreciated -Continue weaning off pressors -Needs PT for range of motion when medically stable Flower Gomez Sep 11, 2017 09:02
[2017-09-11] MEDS: INSULIN ASPART SUPPLEMENTAL SCALE SQ SCH ×4 (09:12→20:44)
[2017-09-11 10:55] LABS: BLOOD GAS BASE EXCESS -9.4 mmol/L (-2-2); BLOOD GAS HCO3 17 mmol/L (22-26); BLOOD GAS METHEMOGLOBIN 1.4 % (0-2); BLOOD GAS O2 HGB SATURATION 91 % (90-100); BLOOD GAS OXYGEN CONTENT 10.7 Vol % (12.0-20.0); BLOOD GAS PCO2 45 mmHg (38-42); BLOOD GAS PO2 72 mmHg (61-120); BLOOD GAS TOTAL HGB 8.3 G/DL (12.0-16.0); TEMP CORR TO 98.6
[2017-09-11 10:56] LABS: CRITICAL VALUE YES; DRAW SITE ART LINE; FIO2 60 %; OXYGEN DEVICE VENTILATOR; STAT NO
[2017-09-11] MEDS ORDERED: SODIUM BICARBONATE 8.4% INJ 50 MEQ/50 ML SYR IV PUSH ONE (11:00)
--- NOTE | 2017-09-11 12:03 | HHI.IDPN ---
Note Infectious Disease Note Patient is on the vent. sedated. Unresponsive. Off Levophed. On vasopressin. Afebrile. Sputum culture has gram neg robel. ESTELLA RN. Presented to the emergency department on September 07 and was diagnosed with small bowel obstruction. She was taken to surgery and was found to have perforated small bowel and she underwent small bowel resection. The patient previously had elective gastric sleeve on 08/22/2017. After that she was having nausea and vomiting and then can then difficulty passing stools, upon the surgical procedure the patient reportedly had some purulent material within the abdomen. PAST MEDICAL HISTORY 1. Rheumatoid arthritis 2. Hypothyroidism 3. Gout 4. Depression 5. Seizure disorder 6. Attention deficit disorder 7. Cholecystectomy 8. Tonsillectomy 9. Ankle arthroplasty 10. Gastric sleeve. 08/22/17. ALLERGIES PROPOXYPHENE DARVOCET ADHESIVE TAPES ANTIBIOTICS 1. Vancomycin 2. Cefepime. 3. Fluconazole. 4. Metronidazole. SOCIAL HISTORY The patient is . Rare alcohol use noted. No tobacco. OBJECTIVE: Vital Signs Date Time Temp Pulse Resp B/P (MAP) Pulse Ox O2 Delivery O2 Flow Rate FiO2 09/11/17 10:00 90 09/11/17 08:00 94 09/11/17 08:00 98.3 94 16 102/54 (70) 94 09/11/17 08:00 60 09/11/17 07:40 94 60 09/11/17 06:50 99 110/52 09/11/17 06:34 100 112/54 09/11/17 06:23 98 113/58 09/11/17 06:00 98 09/11/17 05:00 98 110/55 09/11/17 04:07 94 60 09/11/17 04:00 60 09/11/17 04:00 98.8 101 16 116/56 (76) 93 09/11/17 04:00 101 09/11/17 03:32 99 112/56 09/11/17 03:16 98 113/56 09/11/17 02:11 99 112/55 09/11/17 02:00 98 09/11/17 00:48 103 111/56 09/11/17 00:00 60 09/11/17 00:00 104 09/11/17 00:00 98.8 104 16 128/62 (84) 92 09/10/17 23:19 93 50 09/10/17 22:15 94 95/47 09/10/17 22:00 94 09/10/17 20:30 97 50 09/10/17 20:04 93 99/50 09/10/17 20:00 98.7 94 16 102/54 (70) 96 Automatic Cuff 09/10/17 20:00 60 09/10/17 20:00 103 09/10/17 19:00 100 100/50 09/10/17 19:00 100 100/50 09/10/17 16:56 100 105/57 09/10/17 16:29 96 60 09/10/17 16:00 97.7 101 16 100/55 (70) 96 100/55 (70) 09/10/17 16:00 60 09/10/17 12:13 94 40 09/10/17 12:00 40 09/10/17 12:00 98.1 104 16 94 108/60 (76) Laboratory Tests Test 09/09/17 15:50 09/10/17 05:10 09/11/17 04:14 White Blood Count 11.7 TH/MM3 8.0 TH/MM3 11.4 TH/MM3 Red Blood Count 3.38 MIL/MM3 3.11 MIL/MM3 2.84 MIL/MM3 Hemoglobin 10.2 GM/DL 9.1 GM/DL 8.4 GM/DL Hematocrit 30.7 % 27.9 % 25.9 % Mean Corpuscular Volume 90.9 FL 89.9 FL 91.2 FL Mean Corpuscular Hemoglobin 30.1 PG 29.2 PG 29.5 PG Mean Corpuscular Hemoglobin Concent 33.1 % 32.5 % 32.3 % Red Cell Distribution Width 17.3 % 18.1 % 18.2 % Platelet Count 445 TH/MM3 297 TH/MM3 235 TH/MM3 Mean Platelet Volume 7.0 FL 6.8 FL 6.8 FL Neutrophils (%) (Auto) 89.0 % 91.6 % 95.1 % Lymphocytes (%) (Auto) 5.7 % 4.9 % 3.2 % Monocytes (%) (Auto) 5.1 % 3.2 % 1.5 % Eosinophils (%) (Auto) 0.1 % 0.1 % 0.1 % Basophils (%) (Auto) 0.1 % 0.2 % 0.1 % Neutrophils # (Auto) 10.4 TH/MM3 7.3 TH/MM3 10.9 TH/MM3 Lymphocytes # (Auto) 0.7 TH/MM3 0.4 TH/MM3 0.4 TH/MM3 Monocytes # (Auto) 0.6 TH/MM3 0.3 TH/MM3 0.2 TH/MM3 Eosinophils # (Auto) 0.0 TH/MM3 0.0 TH/MM3 0.0 TH/MM3 Basophils # (Auto) 0.0 TH/MM3 0.0 TH/MM3 0.0 TH/MM3 CBC Comment AUTO DIFF AUTO DIFF AUTO DIFF Differential Total Cells Counted 100 100 100 Neutrophils % (Manual) 27 % 28 % 57 % Band Neutrophils % 63 % 59 % 40 % Lymphocytes % 6 % 9 % 1 % Monocytes % 2 % 4 % 2 % Neutrophils # (Manual) 10.8 TH/MM3 7.0 TH/MM3 11.1 TH/MM3 Metamyelocytes 2 % Differential Comment FINAL DIFF MANUAL FINAL DIFF MANUAL FINAL DIFF MANUAL Toxic Vacuolation PRESENT PRESENT PRESENT Platelet Estimate HIGH NORMAL NORMAL Platelet Morphology Comment NORMAL NORMAL NORMAL Ovalocytes 1+ Toxic Granulation 1+ Keratocytes 1+ Dohle Bodies PRESENT Laboratory Tests Test 09/09/17 13:50 09/09/17 15:50 09/09/17 20:20 09/09/17 23:00 Lactic Acid Level 6.1 mmol/L 3.8 mmol/L Blood Urea Nitrogen 15 MG/DL Creatinine 0.97 MG/DL Random Glucose 219 MG/DL Total Protein 4.2 GM/DL Albumin 1.9 GM/DL Calcium Level 5.8 MG/DL Alkaline Phosphatase 60 U/L Aspartate Amino Transf (AST/SGOT) 34 U/L Alanine Aminotransferase (ALT/SGPT) 26 U/L Total Bilirubin 1.1 MG/DL Sodium Level 137 MEQ/L Potassium Level 3.7 MEQ/L Chloride Level 107 MEQ/L Carbon Dioxide Level 18.8 MEQ/L Anion Gap 11 MEQ/L Estimat Glomerular Filtration Rate 58 ML/MIN Protein Corrected Calcium 7.1 MG/DL Troponin I LESS THAN 0.02 NG/ML LESS THAN 0.02 NG/ML Test 09/10/17 05:10 09/11/17 04:14 Blood Urea Nitrogen 18 MG/DL 23 MG/DL Creatinine 0.99 MG/DL 1.24 MG/DL Random Glucose 143 MG/DL 246 MG/DL Total Protein 4.6 GM/DL 5.1 GM/DL Albumin 2.3 GM/DL 2.6 GM/DL Calcium Level 6.3 MG/DL 6.5 MG/DL Alkaline Phosphatase 55 U/L 96 U/L Aspartate Amino Transf (AST/SGOT) 27 U/L 25 U/L Alanine Aminotransferase (ALT/SGPT) 22 U/L 23 U/L Total Bilirubin 0.9 MG/DL 0.9 MG/DL Sodium Level 136 MEQ/L 133 MEQ/L Potassium Level 3.9 MEQ/L 3.9 MEQ/L Chloride Level 106 MEQ/L 105 MEQ/L Carbon Dioxide Level 17.7 MEQ/L 20.9 MEQ/L Anion Gap 12 MEQ/L 7 MEQ/L Estimat Glomerular Filtration Rate 57 ML/MIN 44 ML/MIN Lactic Acid Level 2.9 mmol/L Protein Corrected Calcium 7.5 MG/DL 7.5 MG/DL Magnesium Level 1.1 MG/DL Microbiology Date/Time Source Procedure Growth Status 09/10/17 08:30 Blood Peripheral Aerobic Blood Culture - Preliminary NO GROWTH IN 1 DAY Resulted 09/10/17 08:30 Blood Peripheral Anaerobic Blood Culture - Preliminary NO GROWTH IN 1 DAY Resulted 09/09/17 09:45 Blood Peripheral Aerobic Blood Culture - Preliminary NO GROWTH IN 2 DAYS Resulted 09/09/17 09:45 Blood Peripheral Anaerobic Blood Culture - Preliminary NO GROWTH IN 2 DAYS Resulted 09/08/17 21:10 Sputum Oral Tracheal Aspirate Gram Stain - Final Resulted 09/08/17 21:10 Sputum Culture - Preliminary Gram Negative Robel Resulted 09/09/17 09:45 Urine Clean Catch Urine Culture - Final NO GROWTH IN 48 HOURS. Complete IMAGING: Chest X-Ray 09/10/17 0600 Signed Impressions: Service Date/Time: Sunday, September 10, 2017 05:28 - CONCLUSION: Suboptimal Midinspiratory mildly rotated study with increased opacity greatest in the left lung. This could indicate infiltrate or could be partially artifactual and due to the Midinspiratory view and rotation. Yuri Holt MD Abdomen Fluoroscopy 09/08/17 0000 Signed Impressions: Service Date/Time: Friday, September 08, 2017 12:04 - CONCLUSION: Uncomplicated nasogastric tube placement as above. Tae Archuleta Jr., MD Abdomen/Pelvis CT 09/07/17 0000 Signed Impressions: Service Date/Time: August 12:20 - CONCLUSION: 1. Small bowel obstruction with transition point in the lower abdomen adjacent to an area of indurated mesentery. 2. Marked dilation of the intrahepatic biliary system , up to 2.2 cm, and some mild distention of the intrahepatic biliary system. Differential considerations include a distal biliary obstruction and reservoir effect from prior cholecystectomy. Tae Roblero MD PHYSICAL EXAM: GENERAL: Patient is on the vent. Unresponsive. HEENT: No icterus. NECK: Supple. No adenopathy. LUNGS: Bilateral rhonchi. CARDIAC: Regular rate and rhythm. no murmurs, rubs or gallops. ABDOMEN: Obese. Soft. Unable to appreciate tenderness. EXTREMITIES: No clubbing, cyanosis. Trace edema at the hands and feet. SKIN: No rash. IMPRESSION 1. Septic shock. 2. Post exploratory laparotomy and small bowel resection along with lysis of adhesions for small bowel perforation. 3. Peritonitis due to due to small bowel perforation. No cultures sent with exp lap. 4. Acute respiratory failure. 5. VAP gram negative. RECOMMENDATIONS 1. Continue Cefepime 2. Continue Metronidazole 3. Continue Fluconazole 4. Continue Vancomycin. 5. Monitor blood culture. 6. Monitor sputum culture 8. Follow clinical status. D/W RN and . Jus Enriquez MD Sep 11, 2017 12:03
[2017-09-11] MEDS: BUMETANIDE INJ 1 MG/4 ML VIAL IV PUSH SCH ×2 (12:29→17:38)
[2017-09-11] MEDS: VASOPRESSIN INJ 40 UNITS in DEXTROSE 5% IN WATER 100ML INJ 98 ML IV SCH ×2 (13:21)
[2017-09-11 14:22] LABS: BLOOD GAS BASE EXCESS -7.3 mmol/L (-2-2); BLOOD GAS HCO3 18 mmol/L (22-26); BLOOD GAS METHEMOGLOBIN 1.4 % (0-2); BLOOD GAS O2 HGB SATURATION 95 % (90-100); BLOOD GAS OXYGEN CONTENT 10.3 Vol % (12.0-20.0); BLOOD GAS PCO2 42 mmHg (38-42); BLOOD GAS PO2 108 mmHg (61-120); BLOOD GAS TOTAL HGB 7.5 G/DL (12.0-16.0); TEMP CORR TO 98.6
[2017-09-11 14:23] LABS: CRITICAL VALUE YES; OXYGEN DEVICE VENTILATOR
[2017-09-11 14:24] LABS: DRAW SITE ART LINE; FIO2 50 %; STAT NO
[2017-09-11 15:06] LABS: BICARBONATE 20.9 MEQ/L (21.0-32.0); MAGNESIUM 1.7 MG/DL (1.5-2.5); POTASSIUM 3.6 MEQ/L (3.5-5.1)
[2017-09-11 15:21] LABS: CALCIUM-PROTEIN CORRECTED 8.1 MG/DL (8.5-10.1)
[2017-09-11] MEDS: MULTIVITAMIN INJ 10 ML, FOLIC ACID INJ 1 MG, INSULIN HUMAN REGULAR INJ 40 UNITS in AMIN... IV-CENTRAL SCH (21:06)
[2017-09-12] VITALS (19 sets, daily range): BP systolic 126–148; BP diastolic 71–80; PULSE 88–100; RESP 22; TEMP 97.6–98.6; O2SAT 95–100
[2017-09-12] MEDS: metroNIDAZOLE 500 MG INJ 100 ML IV SCH ×4 (01:59→22:21)
[2017-09-12] MEDS: VASOPRESSIN INJ 40 UNITS in DEXTROSE 5% IN WATER 100ML INJ 98 ML IV SCH ×2 (03:09)
[2017-09-12 04:02] LABS: AUTOMATED NEUTROPHIL # 6.1 TH/MM3 (1.8-7.7); BASOPHIL % 0.2 % (0.0-2.0); EOSINOPHIL % 0.1 % (0.0-4.0); HEMATOCRIT 22.6 % (35.0-46.0); LYMPH % 5.4 % (9.0-44.0); LYMPHOCYTE # 0.4 TH/MM3 (1.0-4.8); MEAN CELL VOLUME 90.3 FL (80.0-100.0); MEAN CORPUSCULAR HEMOGLOBIN 29.8 PG (27.0-34.0); MONO % 3.4 % (0.0-8.0); NEUT % 90.9 % (16.0-70.0); PLATELET COUNT 128 TH/MM3 (150-450); RED CELL DISTRIBUTION WIDTH 17.3 % (11.6-17.2); WHITE BLOOD COUNT 6.8 TH/MM3 (4.0-11.0)
[2017-09-12 04:07] LABS: HEMO FLAGS AUTO DIFF
[2017-09-12 04:34] LABS: BICARBONATE 21.6 MEQ/L (21.0-32.0); CALCIUM-PROTEIN CORRECTED 8.3 MG/DL (8.5-10.1); MAGNESIUM 1.7 MG/DL (1.5-2.5); POTASSIUM 3.3 MEQ/L (3.5-5.1); TOTAL BILIRUBIN ADULT 0.9 MG/DL (0.2-1.0)
[2017-09-12] MEDS: HYDROCORTISONE SOD SUCCINATE 100 MG VIAL IV PUSH SCH ×3 (05:01→22:02)
[2017-09-12] MEDS: LEVOTHYROXINE SODIUM 100 MCG VIAL IV PUSH SCH (05:01)
[2017-09-12] MEDS: ENOXAPARIN SODIUM 40 MG/0.4 ML SYRINGE SQ SCH (05:02)
[2017-09-12] MEDS: POTASSIUM CHLOR 40 MEQ PREMIX 100 ML IV PRN ×2 (05:02→23:16)
--- NOTE | 2017-09-12 05:44 | RADRPT ---
EXAM DATE/TIME: 09/12/2017 05:09 [facility] COMPARISON: CHEST SINGLE AP, September 11, 2017, 4:48. INDICATIONS : Respiratory distress. MEDICAL HISTORY : Rheumatoid arthritis. Seizures. SURGICAL HISTORY : Cholecystectomy. Gastric sleeve. ENCOUNTER: Subsequent ACUITY: 2 weeks PAIN SCORE: Non-responsive. LOCATION: Bilateral chest FINDINGS: ET tube is 3.9 cm from jb. NG tube tip is directed into the stomach. There is a right internal ju gular central line in place with the tip overlying the SVC. There is diffuse pulmonary consolidation. This silhouettes the heart border. This is unchanged from the prior exam. CONCLUSION: Diffuse pulmonary consolidation likely representing diffuse processes such as edema or diffuse infect ion/inflammatory change. Damian Vang MD on September 12, 2017 at 5:41 Board Certified Radiologist. This report was verified electronically.
[2017-09-12 07:39] LABS: BANDS 15 % (0-6); CORRECTED NUCLEATED RBC 1 /100 WBC (0-0); NEUTROPHIL # MANUAL DIFF 6.4 TH/MM3 (1.8-7.7); POLYS (SEG NEUTROPHILS) 79 % (16-70); WBC DIFF SAMPLE 100
[2017-09-12 07:40] LABS: DOHLE BODIES PRESENT (NONE SEEN)
[2017-09-12 07:41] LABS: PLATELET ESTIMATE SMEAR LOW (NORMAL); PLATELET MORPHOLOGY NORMAL (NORMAL)
[2017-09-12 07:42] LABS: SCAN/DIFF FINAL DIFF MANUAL
[2017-09-12] MEDS ORDERED: PHARMACY ORDERED LAB ONE (07:45)
[2017-09-12] MEDS: INSULIN ASPART SUPPLEMENTAL SCALE SQ SCH ×4 (08:00→22:00)
[2017-09-12] MEDS: ALBUMIN 25% INJ 100 ML IV SCH ×3 (08:49→23:15)
[2017-09-12] MEDS: PANTOPRAZOLE SODIUM 40 MG VIAL IV PUSH SCH (08:52)
[2017-09-12] MEDS: SODIUM CHLORIDE 0.9% FLUSH 10 ML FLUSH IV FLUSH SCH ×2 (08:52→21:00)
[2017-09-12] MEDS: BUMETANIDE INJ 1 MG/4 ML VIAL IV PUSH SCH ×3 (08:53→17:12)
[2017-09-12] MEDS ORDERED: BUMETANIDE INJ 1 MG/4 ML VIAL IV PUSH STA (08:54)
[2017-09-12] MEDS: CHLORHEXIDINE 0.12% (ORAL KIT) 15 ML CUP OROPHARYNG SCH ×2 (09:06→20:00)
[2017-09-12] MEDS: CEFEPIME INJ 2,000 MG in SODIUM CHLORIDE 0.9% INJ 100 ML IV SCH ×2 (09:42→20:35)
--- NOTE | 2017-09-12 09:44 | HHI.PR ---
Subjective Subjective Notes Remains on vent Off all pressors Being diuresed Objective Vitals/I&O Vital Signs Date Time Temp Pulse Resp B/P (MAP) Pulse Ox O2 Delivery O2 Flow Rate FiO2 09/12/17 08:42 100 45 09/12/17 06:00 92 09/12/17 04:00 98.0 22 126/71 (89) Labs Laboratory Tests Test 09/11/17 10:42 09/11/17 14:01 09/11/17 14:10 09/11/17 14:30 Blood Gas Puncture Site ART LINE ART LINE Blood Gas Patient Temperature 98.6 98.6 Blood Gas HCO3 17 18 Blood Gas Base Excess -9.4 -7.3 Blood Gas Oxygen Saturation 91 95 Arterial Blood pH 7.20 7.26 Arterial Blood Partial Pressure CO2 45 42 Arterial Blood Partial Pressure O2 72 108 Arterial Blood Oxygen Content 10.7 10.3 Arterial Blood Carboxyhemoglobin 1.0 1.0 Arterial Blood Methemoglobin 1.4 1.4 Blood Gas Hemoglobin 8.3 7.5 Oxygen Delivery Device VENTILATOR VENTILATOR Blood Gas Ventilator Setting Blood Gas Inspired Oxygen 60 50 Blood Urea Nitrogen 26 Creatinine 1.41 Random Glucose 215 Total Protein 4.6 Calcium Level 6.8 Magnesium Level 1.7 Sodium Level 136 Potassium Level 3.6 Chloride Level 107 Carbon Dioxide Level 20.9 Anion Gap 8 Estimat Glomerular Filtration Rate 38 Protein Corrected Calcium 8.1 Nasal Screen MRSA (PCR) MRSA NOT DETECTED Test 09/12/17 03:46 White Blood Count 6.8 Red Blood Count 2.50 Hemoglobin 7.5 Hematocrit 22.6 Mean Corpuscular Volume 90.3 Mean Corpuscular Hemoglobin 29.8 Mean Corpuscular Hemoglobin Concent 33.0 Red Cell Distribution Width 17.3 Platelet Count 128 Mean Platelet Volume 7.0 Neutrophils (%) (Auto) 90.9 Lymphocytes (%) (Auto) 5.4 Monocytes (%) (Auto) 3.4 Eosinophils (%) (Auto) 0.1 Basophils (%) (Auto) 0.2 Neutrophils # (Auto) 6.1 Lymphocytes # (Auto) 0.4 Monocytes # (Auto) 0.2 Eosinophils # (Auto) 0.0 Basophils # (Auto) 0.0 CBC Comment AUTO DIFF Differential Total Cells Counted 100 Neutrophils % (Manual) 79 Band Neutrophils % 15 Lymphocytes % 5 Monocytes % 1 Neutrophils # (Manual) 6.4 Nucleated Red Blood Cells 1 Differential Comment FINAL DIFF MANUAL Dohle Bodies PRESENT Platelet Estimate LOW Platelet Morphology Comment NORMAL Blood Urea Nitrogen 32 Creatinine 1.67 Random Glucose 224 Total Protein 5.1 Albumin 2.8 Calcium Level 7.2 Magnesium Level 1.7 Alkaline Phosphatase 243 Aspartate Amino Transf (AST/SGOT) 37 Alanine Aminotransferase (ALT/SGPT) 29 Total Bilirubin 0.9 Sodium Level 136 Potassium Level 3.3 Chloride Level 105 Carbon Dioxide Level 21.6 Anion Gap 9 Estimat Glomerular Filtration Rate 31 Protein Corrected Calcium 8.3 Random Vancomycin Level 30.4 Date/Time Source Procedure Growth Status 09/10/17 08:30 Blood Peripheral Aerobic Blood Culture - Preliminary NO GROWTH IN 1 DAY Resulted 09/10/17 08:30 Blood Peripheral Anaerobic Blood Culture - Preliminary NO GROWTH IN 1 DAY Resulted 09/08/17 21:10 Sputum Oral Tracheal Aspirate Gram Stain - Final Complete 09/08/17 21:10 Sputum Culture - Final Escherichia Coli Complete 09/09/17 09:45 Urine Clean Catch Urine Culture - Final NO GROWTH IN 48 HOURS. Complete Radiology Last Impressions Chest X-Ray 09/12/17 0600 Signed Impressions: Service Date/Time: Tuesday, September 12, 2017 05:09 - CONCLUSION: Diffuse pulmonary consolidation likely representing diffuse processes such as edema or diffuse infection/inflammatory change. Damian Vang MD Abdomen Fluoroscopy 09/08/17 0000 Signed Impressions: Service Date/Time: Friday, September 08, 2017 12:04 - CONCLUSION: Uncomplicated nasogastric tube placement as above. Tae Archuleta Jr., MD Abdomen/Pelvis CT 09/07/17 0000 Signed Impressions: Service Date/Time: August 12:20 - CONCLUSION: 1. Small bowel obstruction with transition point in the lower abdomen adjacent to an area of indurated mesentery. 2. Marked dilation of the intrahepatic biliary system , up to 2.2 cm, and some mild distention of the intrahepatic biliary system. Differential considerations include a distal biliary obstruction and reservoir effect from prior cholecystectomy. Tae Roblero MD Cardiovascular: Regular Lungs: Upper airway course sound, Rhonchi Abdomen: Other (intermittent bowel sounds) Extremities: Other (edematous) Wound Wound #1: Wound Location: Abdomen (Left ROSSI site) Appearance: Clean & Dry Drainage: Clear Wound #2: Wound Location: Abdomen (right ROSSI site leaking some serous fluid) Drainage: Clear A/P Assessment and Plan 61yo F with small bowel perforation and peritonitis -Consult renal for worsening kidney function -Wean vent support as tolerated -Reinforce right ROSSI dressing Flower Gomez Sep 12, 2017 09:44
[2017-09-12 09:51] LABS: BLOOD GAS BASE EXCESS -5.5 mmol/L (-2-2); BLOOD GAS HCO3 20 mmol/L (22-26); BLOOD GAS METHEMOGLOBIN 1.4 % (0-2); BLOOD GAS O2 HGB SATURATION 93 % (90-100); BLOOD GAS OXYGEN CONTENT 10.4 Vol % (12.0-20.0); BLOOD GAS PCO2 39 mmHg (38-42); BLOOD GAS PO2 83 mmHg (61-120); BLOOD GAS TOTAL HGB 7.8 G/DL (12.0-16.0); CRITICAL VALUE NO; OXYGEN DEVICE VENTILATOR; TEMP CORR TO 98.6
[2017-09-12 09:52] LABS: DRAW SITE LT RADIAL; FIO2 45 %; NUMBER OF ARTERIAL PUNCTURES 2; STAT YES; ULNAR PULSE PRESENT; VENT SETTINGS 22/550/1.0/+8
[2017-09-12] MEDS: levETIRAcetam INJ 500 MG in SODIUM CHLORIDE 0.9% INJ 100 ML IV SCH ×2 (09:58→22:00)
--- NOTE | 2017-09-12 12:32 | HHI.IDPN ---
Note Infectious Disease Note Patient is on the vent. 40% FIO2. sedated. Unresponsive. Off all pressors. D/W RN. Withdraws extremities. Afebrile. Afebrile. Sputum culture has e. coli. Presented to the emergency department on September 07 and was diagnosed with small bowel obstruction. She was taken to surgery and was found to have necrosed, perforated small bowel and she underwent small bowel resection. The patient previously had elective gastric sleeve on 08/22/2017. After that she was having nausea and vomiting and then difficulty passing stools. During the surgical procedure the patient had some purulent material within the abdomen. PAST MEDICAL HISTORY 1. Rheumatoid arthritis 2. Hypothyroidism 3. Gout 4. Depression 5. Seizure disorder 6. Attention deficit disorder 7. Cholecystectomy 8. Tonsillectomy 9. Ankle arthroplasty 10. Gastric sleeve. 08/22/17. ALLERGIES PROPOXYPHENE DARVOCET ADHESIVE TAPES ANTIBIOTICS 1. Vancomycin 2. Cefepime. 3. Fluconazole. 4. Metronidazole. SOCIAL HISTORY The patient is . Rare alcohol use noted. No tobacco. OBJECTIVE: Vital Signs Date Time Temp Pulse Resp B/P (MAP) Pulse Ox O2 Delivery O2 Flow Rate FiO2 09/12/17 11:31 97 40 09/12/17 08:42 100 45 09/12/17 08:26 100 45 09/12/17 06:00 92 09/12/17 04:04 100 45 09/12/17 04:00 45 09/12/17 04:00 98.0 93 22 126/71 (89) 98 09/12/17 04:00 93 09/12/17 03:09 92 128/71 09/12/17 02:00 88 09/12/17 00:12 95 45 09/12/17 00:00 100 09/12/17 00:00 97.9 100 22 130/71 (90) 95 09/12/17 00:00 45 09/11/17 22:00 96 09/11/17 21:52 97 45 09/11/17 20:00 87 09/11/17 20:00 45 09/11/17 20:00 97.8 86 22 119/70 (86) 97 Arterial Line 09/11/17 18:00 87 09/11/17 16:28 99 45 09/11/17 16:00 89 09/11/17 16:00 97.7 89 22 93/58 (70) 100 09/11/17 16:00 45 09/11/17 14:00 92 09/11/17 13:21 92 95/56 Laboratory Tests Test 09/11/17 04:14 09/12/17 03:46 White Blood Count 11.4 TH/MM3 6.8 TH/MM3 Red Blood Count 2.84 MIL/MM3 2.50 MIL/MM3 Hemoglobin 8.4 GM/DL 7.5 GM/DL Hematocrit 25.9 % 22.6 % Mean Corpuscular Volume 91.2 FL 90.3 FL Mean Corpuscular Hemoglobin 29.5 PG 29.8 PG Mean Corpuscular Hemoglobin Concent 32.3 % 33.0 % Red Cell Distribution Width 18.2 % 17.3 % Platelet Count 235 TH/MM3 128 TH/MM3 Mean Platelet Volume 6.8 FL 7.0 FL Neutrophils (%) (Auto) 95.1 % 90.9 % Lymphocytes (%) (Auto) 3.2 % 5.4 % Monocytes (%) (Auto) 1.5 % 3.4 % Eosinophils (%) (Auto) 0.1 % 0.1 % Basophils (%) (Auto) 0.1 % 0.2 % Neutrophils # (Auto) 10.9 TH/MM3 6.1 TH/MM3 Lymphocytes # (Auto) 0.4 TH/MM3 0.4 TH/MM3 Monocytes # (Auto) 0.2 TH/MM3 0.2 TH/MM3 Eosinophils # (Auto) 0.0 TH/MM3 0.0 TH/MM3 Basophils # (Auto) 0.0 TH/MM3 0.0 TH/MM3 CBC Comment AUTO DIFF AUTO DIFF Differential Total Cells Counted 100 100 Neutrophils % (Manual) 57 % 79 % Band Neutrophils % 40 % 15 % Lymphocytes % 1 % 5 % Monocytes % 2 % 1 % Neutrophils # (Manual) 11.1 TH/MM3 6.4 TH/MM3 Differential Comment FINAL DIFF MANUAL FINAL DIFF MANUAL Toxic Vacuolation PRESENT Dohle Bodies PRESENT PRESENT Platelet Estimate NORMAL LOW Platelet Morphology Comment NORMAL NORMAL Nucleated Red Blood Cells 1 /100 WBC Laboratory Tests Test 09/11/17 04:14 09/11/17 14:10 09/12/17 03:46 Blood Urea Nitrogen 23 MG/DL 26 MG/DL 32 MG/DL Creatinine 1.24 MG/DL 1.41 MG/DL 1.67 MG/DL Random Glucose 246 MG/DL 215 MG/DL 224 MG/DL Total Protein 5.1 GM/DL 4.6 GM/DL 5.1 GM/DL Albumin 2.6 GM/DL 2.8 GM/DL Calcium Level 6.5 MG/DL 6.8 MG/DL 7.2 MG/DL Magnesium Level 1.1 MG/DL 1.7 MG/DL 1.7 MG/DL Alkaline Phosphatase 96 U/L 243 U/L Aspartate Amino Transf (AST/SGOT) 25 U/L 37 U/L Alanine Aminotransferase (ALT/SGPT) 23 U/L 29 U/L Total Bilirubin 0.9 MG/DL 0.9 MG/DL Sodium Level 133 MEQ/L 136 MEQ/L 136 MEQ/L Potassium Level 3.9 MEQ/L 3.6 MEQ/L 3.3 MEQ/L Chloride Level 105 MEQ/L 107 MEQ/L 105 MEQ/L Carbon Dioxide Level 20.9 MEQ/L 20.9 MEQ/L 21.6 MEQ/L Anion Gap 7 MEQ/L 8 MEQ/L 9 MEQ/L Estimat Glomerular Filtration Rate 44 ML/MIN 38 ML/MIN 31 ML/MIN Protein Corrected Calcium 7.5 MG/DL 8.1 MG/DL 8.3 MG/DL Microbiology Date/Time Source Procedure Growth Status 09/10/17 08:30 Blood Peripheral Aerobic Blood Culture - Preliminary NO GROWTH IN 2 DAYS Resulted 09/10/17 08:30 Blood Peripheral Anaerobic Blood Culture - Preliminary NO GROWTH IN 2 DAYS Resulted IMAGING: Chest X-Ray 09/12/17 0600 Signed Impressions: Service Date/Time: Tuesday, September 12, 2017 05:09 - CONCLUSION: Diffuse pulmonary consolidation likely representing diffuse processes such as edema or diffuse infection/inflammatory change. Damian Vang MD Chest X-Ray 09/10/17 0600 Signed Impressions: Service Date/Time: Sunday, September 10, 2017 05:28 - CONCLUSION: Suboptimal Midinspiratory mildly rotated study with increased opacity greatest in the left lung. This could indicate infiltrate or could be partially artifactual and due to the Midinspiratory view and rotation. Yuri Holt MD Abdomen Fluoroscopy 09/08/17 0000 Signed Impressions: Service Date/Time: Friday, September 08, 2017 12:04 - CONCLUSION: Uncomplicated nasogastric tube placement as above. Tae Acrhuleta Jr., MD Abdomen/Pelvis CT 09/07/17 0000 Signed Impressions: Service Date/Time: August 12:20 - CONCLUSION: 1. Small bowel obstruction with transition point in the lower abdomen adjacent to an area of indurated mesentery. 2. Marked dilation of the intrahepatic biliary system , up to 2.2 cm, and some mild distention of the intrahepatic biliary system. Differential considerations include a distal biliary obstruction and reservoir effect from prior cholecystectomy. Tae Roblero MD PHYSICAL EXAM: GENERAL: Patient is on the vent. Unresponsive. HEENT: Head atraumatic, No icterus. Oropharynx intubated. NECK: Supple. No adenopathy. LUNGS: Bilateral rhonchi. CARDIAC: Regular rate and rhythm. no murmurs, rubs or gallops. ABDOMEN: Obese. Soft. Unable to appreciate tenderness. Arnie drains has mateo clear drainage. EXTREMITIES: No clubbing, cyanosis. Trace edema at the hands and feet. SKIN: No rash. Warm and moist. NEURO: unable to assess. IMPRESSION 1. Septic shock. 2. Post exploratory laparotomy and small bowel resection along with lysis of adhesions for small bowel perforation. 3. Peritonitis due to due to small bowel perforation. 4. Acute respiratory failure. 5. VAP gram negative. E. coli. 6. Acute kidney disease. ? sepsis related. ? medication. RECOMMENDATIONS 1. Continue Cefepime 2. Continue Metronidazole 3. Continue Fluconazole 4. Discontinue Vancomycin. 5. Monitor blood culture. 6. Follow clinical status. D/W RN. Jus Enriquez MD Sep 12, 2017 12:32
[2017-09-12 13:52] LABS: AUTOMATED NEUTROPHIL # 7.1 TH/MM3 (1.8-7.7); BASOPHIL % 0.1 % (0.0-2.0); EOSINOPHIL % 0.1 % (0.0-4.0); HEMATOCRIT 22.8 % (35.0-46.0); LYMPH % 4.9 % (9.0-44.0); LYMPHOCYTE # 0.4 TH/MM3 (1.0-4.8); MEAN CELL VOLUME 90.2 FL (80.0-100.0); MEAN CORPUSCULAR HEMOGLOBIN 30.9 PG (27.0-34.0); MEAN CORPUSCULAR HGB CONC 34.3 % (32.0-36.0); MONO % 4.3 % (0.0-8.0); NEUT % 90.6 % (16.0-70.0); PLATELET COUNT 116 TH/MM3 (150-450); RED BLOOD COUNT 2.53 MIL/MM3 (4.00-5.30); RED CELL DISTRIBUTION WIDTH 17.5 % (11.6-17.2); WHITE BLOOD COUNT 7.9 TH/MM3 (4.0-11.0)
--- NOTE | 2017-09-12 14:00 | HHI.CCPN ---
Subjective Remarks/Hospital Course 61-year-old morbidly obese female presents, patient of Dr. Epstein, status post gastric sleeve 08-22-17 now presents with nonbloody emesis and unable to have a bowel movement for a couple days. She states to get that bowel movement she had a use a glycerin suppository and it was just loose. He was taken emergently to operating room and was found to have a small bowel ischemia. She underwent laparoscopic small bowel resection by Dr. Epstein and is postoperatively admitted to critical care unit SUBJ 09/09/17: Remains very critically ill. Profound septic shock requiring Levophed at 40 mcg/m, Des-Synephrine at 500 mcg/m, vasopressin at 0.04 international units, and to be demand 5 g per KG per minute. Urine output 150 mL overnight. Maintaining oxygen saturation. A.m. labs are pending at this time. Surprisingly patient is still mentating able to communicate. Remains on IV fentanyl infusion for pain control. Operative report is pending at this time. Received total of 9 L of crystalloid postoperatively. Receiving 2 units of PRBC. I will replace calcium. Lactic acid 3.5 at 4 AM 09/10: Critically ill but stable. Levophed down to 12 mcg/min, vasopressin at 0.04 IU. Uo 650 ml in 24 hours, bilateral abdominal drains with 1 L output. Right drain had greenish output overnight and now serosanguineous. D/ W Dr Epstein- he confirms perforation and gross contamination 09/11: Remains critically. FiO2 requirement up to 60%, I have increased PEEP to 10. CXR consistent with ARDS versus fluid overload. Creatinine increased to 1.24. Urine output 600 ml in 24 hours. CVP 18-20. Start IV Bumex 1 mg every 12 hours with additional 1 mg dose now. Levophed at 1 mcg/min, vasopressin at 0.04 IU 09/12: remains critically ill but stable to improving. SBP 130-140 on vasopressin will DC vasopressin. Chest x-ray shows bilateral pulmonary edema, but oxygenation has improved. Stable on 50% and PEEP of 10. Creatinine has worsened to 1.67 but urine output 1.5 L in 24 hours with Bumex. CVP remains about 20. Will increase Bumex to 1 mg every 8 hours and give additional 1 mg now. Closely monitor creatinine Objective Vital Signs Date Time Temp Pulse Resp B/P (MAP) Pulse Ox O2 Delivery O2 Flow Rate FiO2 09/12/17 11:31 97 40 09/12/17 06:00 92 09/12/17 04:00 98.0 22 126/71 (89) Intake and Output 09/12/17 09/12/17 09/13/17 08:00 16:00 00:00 Intake Total 536 ml Output Total 1135 ml Balance -599 ml Result Diagram: 09/12/17 0346 09/12/17 0346 Other Results Laboratory Tests Test 09/11/17 14:01 09/12/17 09:44 Blood Gas Puncture Site ART LINE LT RADIAL Blood Gas Patient Temperature 98.6 98.6 Blood Gas HCO3 18 mmol/L (22-26) 20 mmol/L (22-26) Blood Gas Base Excess -7.3 mmol/L (-2-2) -5.5 mmol/L (-2-2) Blood Gas Oxygen Saturation 95 % (90-100) 93 % (90-100) Arterial Blood pH 7.26 (7.380-7.420) 7.32 (7.380-7.420) Arterial Blood Partial Pressure CO2 42 mmHg (38-42) 39 mmHg (38-42) Arterial Blood Partial Pressure O2 108 mmHg (61-120) 83 mmHg (61-120) Arterial Blood Oxygen Content 10.3 Vol % (12.0-20.0) 10.4 Vol % (12.0-20.0) Arterial Blood Carboxyhemoglobin 1.0 % (0-4) 1.0 % (0-4) Arterial Blood Methemoglobin 1.4 % (0-2) 1.4 % (0-2) Blood Gas Hemoglobin 7.5 G/DL (12.0-16.0) 7.8 G/DL (12.0-16.0) Oxygen Delivery Device VENTILATOR VENTILATOR Blood Gas Ventilator Setting 22/550/1.0/+8 Blood Gas Inspired Oxygen 50 % 45 % Objective Remarks Infusions: Vasopressin at 0.04 international units GENERAL: Obese female sedated and intubated. SKIN: Warm and dry. HEAD: Normocephalic. EYES: No scleral icterus. No injection or drainage. NECK: Supple, trachea midline. No JVD or lymphadenopathy. Orotracheally intubated CARDIOVASCULAR: S1-S2 normal no murmurs. Heart sounds distant RESPIRATORY: Breath sounds equal bilaterally, with bilateral fine crackles. No accessory muscle use. GASTROINTESTINAL: Abdomen soft, tender, distended. Morbidly obese. Bilateral ROSSI drains in place 620 ml combined output in 24 hour. Slightly cloudy output. Trochar incisions sites CDI MUSCULOSKELETAL: No cyanosis, or edema. NEURO EXAM: Sedated and intubated, not following commands but withdraws all extremities. Pupils are round, reactive to light. A/P Assessment and Plan A/P: NEURO: Seizure disorder - Currently off all sedation - Keppra IV. Check EEG RESP: Acute hypoxemic respiratory failure ARDS HCAP with E Coli - Continue mechanical ventilation/PRVC mode, keep peak pressure <40 considering morbid obesity, Wean FiO2 and PEEP keeping SaO2> 90% - No weaning until hemodynamically stable, CXR improved - ABG, CXR daily, Vent bundle - DuoNeb every 6 hours scheduled and when necessary - Diuresis as below - Bilateral pulmonary opacities may be fluid overload versus acute lung injury/ ARDS CVS: Septic shock-resolving Lactic acidosis - Right femoral arterial line placed and flow track monitoring initiated 09/09- Art line dislodged 09/11 - no need to replace art line as patient is now off all pressors - s/p Aggressive IV fluid resuscitation, postop received 9 L of normal saline, 2 units of PRBC - Increase IV bumex 1 mg IV q8, with additional 1 mg IV now - Hydrocortisone stress dose-start weaning 09/13 GI: Small bowel ischemia/Perforation Peritonitis - POD # 5 S/P Laparoscopic SBR for gangrenous small bowel - Post op surgical management per Dr. Epstein general surgery - NPO, IV Protonix. Started TPN 09/10/17 : Acute kidney failure - ATN most likely from severe septic shock - Continue Bumex as above - Maintain [place] for accurate intake output HEME: Anemia - s/p 2 units of PRBC, transfuse to keep Hb >7.5 - Monitor H&H - Drop in platelet most likely sepsis, monitor ID: Septic shock Peritonitis HCAP with E Coli - Broad-spectrum antibiotic - Levaquin, Flagyl, Diflucan, vancomycin, cefepime. DC Levaquin today - Sputum culture E Coli - Blood cultures, urine culture follow up - ID following ENDO: Diabetes mellitus Hypocalcemia - Insulin sliding scale, and IV insulin with TPN - Electrolyte replacement per protocol DVT GI prophylaxis - Teds SCDs - Pharmacological DVT prophylaxis Lovenox 40 mg subcutaneous every 12- reduce to 40 qd due to worsening creatinine - Protonix Critical Care: The total critical care time was 35 minutes. Time to perform other separately billable procedures was not included in the critical care time. D/W Dr. Hernandez, and updated sister at bedside Remains critically ill. There is improvement in septic shock, but there is now evidence of ARDS, severe hypoxemia and acute kidney injury. Kieran Salgado MD Sep 12, 2017 14:00
[2017-09-12 14:01] LABS: HEMO FLAGS AUTO DIFF
[2017-09-12] MEDS ORDERED: POTASSIUM CHLOR 40 MEQ PREMIX 100 ML IV ONE (14:15)
[2017-09-12] MEDS ORDERED: MAGNESIUM SULFATE 1 GM PREMIX 100 ML IV ONE (14:15)
[2017-09-12 14:20] LABS: ANION GAP 10 MEQ/L (5-15); AST (GOT) 36 U/L (15-37); BICARBONATE 21.4 MEQ/L (21.0-32.0); BLOOD UREA NITROGEN 34 MG/DL (7-18); CHLORIDE 105 MEQ/L (98-107); GLOMERULAR FILTRATION RATE 28 ML/MIN (>89); MAGNESIUM 1.7 MG/DL (1.5-2.5); POTASSIUM 3.3 MEQ/L (3.5-5.1); SODIUM (NA) 136 MEQ/L (136-145)
--- NOTE | 2017-09-12 14:21 | PD.CONS ---
HPI Service Nephrology Consult Requested By Jason LOPEZ Reason for Consult [facility] Primary Care Physician Rafael Rowan MD History of Present Illness Patient is a 61-year-old morbidly obese female who underwent gastric sleeve operation earlier this month on 08/23/17, patient has obstructive symptoms she was admitted and then as been doing well until gi when she developed the abdominal pain nausea vomiting and patient has been brought her back to the emergency. She had diagnoses of peritonitis, bowel obstruction, septic shock. Underwent surgical bowel resection due to perforation currently intubated she required massive volume resuscitation, she has volume overload and is on the ventilator, she is placed on Bumex 1 mg every 8 hourly and currently nonoliguric. 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 Past Surgical History Fatty tumor removal from leg D&C Ankle surgery Tonsillectomy Gallbladder surgery Gastric sleeve Reported Medications Reported Meds & Active Scripts Active Bath/Shower Seat with Hubert (Device) 1 Mis Mis Ea .ROUTE DIRECTED Walker with Front Wheels (Device) 1 Mis Mis Ea .ROUTE DIRECTED Phenergan (Promethazine HCl) 25 Mg Tablet 25 Mg PO Q6H PRN Reported Protonix (Pantoprazole Sodium) 40 Mg Tab 40 Mg PO DAILY Metformin (Metformin HCl) 500 Mg Tab 250 Mg PO DAILY With a meal Venlafaxine ER 24 HR (Venlafaxine HCl) 75 Mg Cap 75 Mg PO DAILY Allopurinol 100 Mg Tab 2 Tab PO DAILY [place] Thyroid (Thyroid) 120 Mg Tab 120 Mg PO DAILY Levetiracetam 250 Mg Tab 250 Mg PO BID Methylphenidate ER 24 HR (Methylphenidate HCl) 20 Mg Caper 20 Mg PO DAILY Amlodipine (Amlodipine Besylate) 2.5 Mg Tab 2.5 Mg PO DAILY [place]-3 Fish Oil/Vitamin (Fish Oil-Cholecalciferol) 1,000-1,000 Mg Cap 1 Cap PO DAILY Estrogel Topical (Estradiol) 0.06% Gel 1 Gm VAGINAL WEEKLY Vitamin D3 (Cholecalciferol) 5,000 Unit Cap 5,000 Units PO DAILY Active Ordered Medications Current Medications Medications (Trade) Dose Ordered Sig/Daniel Route Start Time Stop Time Status Last Admin (Protonix Inj) 40 mg DAILY IV PUSH 09/08/17 09:00 09/12/17 08:52 (NS Flush) 2 ml UNSCH PRN IV FLUSH 09/08/17 19:15 (NS Flush) 2 ml BID IV FLUSH 09/08/17 21:00 09/12/17 08:52 (Zofran Inj) 4 mg Q4H PRN IV PUSH 09/08/17 19:15 09/08/17 20:00 Potassium Chloride 100 ml @ 50 mls/hr Q2H PRN IV 09/08/17 21:00 09/09/17 01:50 Potassium Chloride 100 ml @ 50 mls/hr Q2H PRN IV 09/08/17 21:00 (K-Lyte Cl Eff) 50 meq UNSCH PRN PO 09/08/17 21:00 Potassium Chloride 100 ml @ 25 mls/hr UNSCH PRN IV 09/08/17 21:00 09/12/17 05:02 Potassium Chloride 100 ml @ 50 mls/hr Q2H PRN IV 09/08/17 21:00 Magnesium Sulfate 4 gm/Sodium Chloride 100 ml @ 50 mls/hr UNSCH PRN IV 09/08/17 21:00 09/11/17 07:18 (Mag-Ox) 800 mg UNSCH PRN PO 09/08/17 21:00 Magnesium Sulfate 2 gm/Sodium Chloride 100 ml @ 50 mls/hr UNSCH PRN IV 09/08/17 21:00 (K-Phos) 2,000 mg Q4H PRN PO 09/08/17 21:00 Sodium Phosphate 30 mmol/Sodium Chloride 250 ml @ 42 mls/hr UNSCH PRN IV 09/08/17 21:00 (K-Phos) 2,000 mg UNSCH PRN PO/TUBE 09/08/17 21:00 Potassium Phosphate 30 mmol/ Sodium Chloride 260 ml @ 42 mls/hr UNSCH PRN IV 09/08/17 21:00 Fentanyl Citrate 250 ml @ 5 mls/hr TITRATE PRN IV 09/08/17 21:15 09/10/17 13:04 Norepinephrine Bitartrate 250 ml @ 7.5 mls/hr TITRATE PRN IV 09/08/17 21:15 09/11/17 02:11 Metronidazole 100 ml @ 100 mls/hr Q6H IV 09/09/17 03:00 09/12/17 08:50 (Brethine Inj) 1 mg UNSCH PRN SQ 09/09/17 01:45 (SoluCORTEF INJ) 100 mg Q8HR IV PUSH 09/09/17 06:00 09/12/17 12:47 Levetriacetam 500 mg/Sodium Chloride 105 ml @ 420 mls/hr Q12HR IV 09/09/17 09:00 09/12/17 09:58 (D50w (Vial) Inj) 50 ml UNSCH PRN IV PUSH 09/09/17 06:00 (Glucagon Inj) 1 mg UNSCH PRN OTHER 09/09/17 06:00 (NovoLOG SUPPLEMENTAL SCALE) 1 ACHS SLIDING SCALE SQ 09/09/17 08:00 09/12/17 12:00 Albumin Human 100 ml @ 60 mls/hr Q8H IV 09/09/17 08:00 09/12/17 08:49 (Peridex 0.12% Liq) 15 ml Q12H OROPHARYNG 09/10/17 08:00 09/12/17 09:06 (Synthroid Inj) 25 mcg DAILY@06 IV PUSH 09/11/17 06:00 09/12/17 05:01 Multivitamins 10 ml/Folic Acid 1 mg/Insulin Human Regular 40 units/ Amino Acids/ Electrolytes/ Dextrose 2,010.6 ml @ 75 mls/hr Q24H IV-CENTRAL 09/11/17 20:00 09/11/17 21:06 Cefepime HCl 2000 mg/Sodium Chloride 100 ml @ 200 mls/hr Q12H IV 09/11/17 20:00 09/12/17 09:42 (Bumex Inj) 1 mg Q8H IV PUSH 09/12/17 10:00 09/12/17 10:07 (Duoneb Neb) 1 ampule Q6HR NEB NEB 09/12/17 16:00 UNV (Duoneb Neb) 1 ampule Q2HR NEB PRN NEB 09/12/17 14:00 UNV (Lovenox Inj) 40 mg Q24H SQ 09/13/17 06:00 UNV Magnesium Sulfate/ Dextrose 100 ml @ 100 mls/hr ONCE ONCE IV 09/12/17 14:15 09/12/17 15:14 UNV Potassium Chloride 100 ml @ 25 mls/hr BOLUS ONCE IV 09/12/17 14:15 09/12/17 18:14 UNV Family History Noncontributory Social History Denies smoking or alcohol use Physical Exam Vital Signs Vital Signs Date Time Temp Pulse Resp B/P (MAP) Pulse Ox O2 Delivery O2 Flow Rate FiO2 09/12/17 11:31 97 40 09/12/17 08:42 100 45 09/12/17 08:26 100 45 09/12/17 08:00 98.6 94 22 132/76 (94) 98 09/12/17 08:00 94 09/12/17 06:00 92 09/12/17 04:04 100 45 09/12/17 04:00 45 09/12/17 04:00 98.0 93 22 126/71 (89) 98 09/12/17 04:00 93 09/12/17 03:09 92 128/71 09/12/17 02:00 88 09/12/17 00:12 95 45 09/12/17 00:00 100 09/12/17 00:00 97.9 100 22 130/71 (90) 95 09/12/17 00:00 45 09/11/17 22:00 96 09/11/17 21:52 97 45 09/11/17 20:00 87 09/11/17 20:00 45 09/11/17 20:00 97.8 86 22 119/70 (86) 97 Arterial Line 09/11/17 18:00 87 09/11/17 16:28 99 45 09/11/17 16:00 89 09/11/17 16:00 97.7 89 22 93/58 (70) 100 09/11/17 16:00 45 Physical Exam GENERAL: Well-nourished, well-developed morbidly obese intubated patient. SKIN: Warm and dry. HEAD: Normocephalic. EYES: No scleral icterus. No injection or drainage. NECK: Supple, trachea midline. No JVD or lymphadenopathy. CARDIOVASCULAR: Regular rate and rhythm without murmurs, gallops, or rubs. RESPIRATORY: Breath sounds equal bilaterally. No accessory muscle use. GASTROINTESTINAL: Abdomen postsurgical drain in place EXTREMITIES: No cyanosis, 3+ edema. NEUROLOGICAL: On ventilatory Laboratory Laboratory Tests Test 09/11/17 14:30 09/12/17 03:46 09/12/17 09:44 09/12/17 13:23 Nasal Screen MRSA (PCR) MRSA NOT DETECTED White Blood Count 6.8 7.9 Red Blood Count 2.50 2.53 Hemoglobin 7.5 7.8 Hematocrit 22.6 22.8 Mean Corpuscular Volume 90.3 90.2 Mean Corpuscular Hemoglobin 29.8 30.9 Mean Corpuscular Hemoglobin Concent 33.0 34.3 Red Cell Distribution Width 17.3 17.5 Platelet Count 128 116 Mean Platelet Volume 7.0 7.4 Neutrophils (%) (Auto) 90.9 90.6 Lymphocytes (%) (Auto) 5.4 4.9 Monocytes (%) (Auto) 3.4 4.3 Eosinophils (%) (Auto) 0.1 0.1 Basophils (%) (Auto) 0.2 0.1 Neutrophils # (Auto) 6.1 7.1 Lymphocytes # (Auto) 0.4 0.4 Monocytes # (Auto) 0.2 0.3 Eosinophils # (Auto) 0.0 0.0 Basophils # (Auto) 0.0 0.0 CBC Comment AUTO DIFF AUTO DIFF Differential Total Cells Counted 100 Neutrophils % (Manual) 79 Band Neutrophils % 15 Lymphocytes % 5 Monocytes % 1 Neutrophils # (Manual) 6.4 Nucleated Red Blood Cells 1 Differential Comment FINAL DIFF MANUAL Dohle Bodies PRESENT Platelet Estimate LOW Platelet Morphology Comment NORMAL Blood Urea Nitrogen 32 Creatinine 1.67 Random Glucose 224 Total Protein 5.1 Albumin 2.8 Calcium Level 7.2 Magnesium Level 1.7 Alkaline Phosphatase 243 Aspartate Amino Transf (AST/SGOT) 37 Alanine Aminotransferase (ALT/SGPT) 29 Total Bilirubin 0.9 Sodium Level 136 Potassium Level 3.3 Chloride Level 105 Carbon Dioxide Level 21.6 Anion Gap 9 Estimat Glomerular Filtration Rate 31 Protein Corrected Calcium 8.3 Random Vancomycin Level 30.4 Blood Gas Puncture Site LT RADIAL Blood Gas Patient Temperature 98.6 Blood Gas HCO3 20 Blood Gas Base Excess -5.5 Blood Gas Oxygen Saturation 93 Arterial Blood pH 7.32 Arterial Blood Partial Pressure CO2 39 Arterial Blood Partial Pressure O2 83 Arterial Blood Oxygen Content 10.4 Arterial Blood Carboxyhemoglobin 1.0 Arterial Blood Methemoglobin 1.4 Blood Gas Hemoglobin 7.8 Oxygen Delivery Device VENTILATOR Blood Gas Ventilator Setting 22/550/1.0/+8 Blood Gas Inspired Oxygen 45 Date/Time Source Procedure Growth Status 09/10/17 08:30 Blood Peripheral Aerobic Blood Culture - Preliminary NO GROWTH IN 2 DAYS Resulted 09/10/17 08:30 Blood Peripheral Anaerobic Blood Culture - Preliminary NO GROWTH IN 2 DAYS Resulted 09/08/17 21:10 Sputum Oral Tracheal Aspirate Gram Stain - Final Complete 09/08/17 21:10 Sputum Culture - Final Escherichia Coli Complete 09/09/17 09:45 Urine Clean Catch Urine Culture - Final NO GROWTH IN 48 HOURS. Complete Result Diagram: 09/12/17 1323 09/12/17 0346 Imaging Last Impressions Chest X-Ray 09/12/17 0600 Signed Impressions: Service Date/Time: Tuesday, September 12, 2017 05:09 - CONCLUSION: Diffuse pulmonary consolidation likely representing diffuse processes such as edema or diffuse infection/inflammatory change. Damian Vang MD Abdomen Fluoroscopy 09/08/17 0000 Signed Impressions: Service Date/Time: Friday, September 08, 2017 12:04 - CONCLUSION: Uncomplicated nasogastric tube placement as above. Tae Archuleta Jr., MD Abdomen/Pelvis CT 09/07/17 0000 Signed Impressions: Service Date/Time: August 12:20 - CONCLUSION: 1. Small bowel obstruction with transition point in the lower abdomen adjacent to an area of indurated mesentery. 2. Marked dilation of the intrahepatic biliary system , up to 2.2 cm, and some mild distention of the intrahepatic biliary system. Differential considerations include a distal biliary obstruction and reservoir effect from prior cholecystectomy. Tae Roblero MD Assessment and Plan Problem List: (1) Acute renal failure ICD Codes: N17.9 - Acute kidney failure, unspecified Plan: Patient was in septic shock and now recovering patient is responding to Bumex 1 mg every 8 hourly for diuresis after volume resuscitation I discussed with Dr. Salgado Close observation is needed BMP monitored Avoid nephrotoxic medications (2) Small bowel obstruction ICD Codes: K56.609 - Unspecified intestinal obstruction, unspecified as to partial versus complete obstruction Status: Acute Plan: Status post surgical intervention (3) Ileus following gastrointestinal surgery ICD Codes: K91.30 - Postprocedural intestinal obstruction, unspecified as to partial versus complete Plan: Continue to monitor Annita Bond MD Sep 12, 2017 14:21
[2017-09-12 14:24] LABS: ALKALINE PHOSPHATASE 301 U/L (45-117); ALT (GPT) 28 U/L (10-53)
[2017-09-12 14:37] LABS: BANDS 14 % (0-6); CORRECTED NUCLEATED RBC 1 /100 WBC (0-0); MYELOCYTES 1 % (0-0); PLATELET ESTIMATE SMEAR LOW (NORMAL); PLATELET MORPHOLOGY NORMAL (NORMAL); POLYS (SEG NEUTROPHILS) 74 % (16-70); SCAN/DIFF FINAL DIFF MANUAL; WBC DIFF SAMPLE 100
--- NOTE | 2017-09-12 14:44 | ECHRPT ---
Indication: Shortness of breath CONCLUSIONS The left ventricular systolic function is normal with an estimated ejection fraction in the range of 55-60%. No definite wall motion abnormalities. Wall thickness is measured at the upper limits of normal. Normal left ventricular size. There is mild tricuspid valve regurgitation. The estimated pulmonary arterial pressure is 33 mmHg. BP: 110 / 55 HR: 98 Rhythm: Other MEASUREMENTS (Male / Female) Normal Values Technical Quality:Poor 2D ECHO LV Diastolic Diameter PLAX 5.3 cm 4.2 - 5.9 / 3.9 - 5.3 cm LV Systolic Diameter PLAX 3.9 cm IVS Diastolic Thickness 1.1 cm 0.6 - 1.0 / 0.6 - 0.9 cm LVPW Diastolic Thickness 1.1 cm 0.6 - 1.0 / 0.6 - 0.9 cm LV Relative Wall Thickness 0.4 LVOT Diameter 2.1 cm M-MODE Aortic Root Diameter MM 3.0 cm LA Systolic Diameter MM 4.3 cm LA Ao Ratio MM 1.4 AV Cusp Separation MM 1.9 cm DOPPLER AV Peak Velocity 157.0 cm/s AV Peak Gradient 9.9 mmHg LVOT Peak Velocity 102.0 cm/s LVOT Peak Gradient 4.2 mmHg AV Area Cont Eq pk 2.3 cm TR Peak Velocity 243.0 cm/s TR Peak Gradient 23.6 mmHg Right Atrial Pressure 10.0 mmHg Pulmonary Artery Systolic Pressu 33.6 mmHg Right Ventricular Systolic Press 33.6 mmHg PV Peak Velocity 117.0 cm/s PV Peak Gradient 5.5 mmHg FINDINGS LEFT VENTRICLE The left ventricular systolic function is normal with an estimated ejection fraction in the range of 55-60%. No definite wall motion abnormalities. Wall thickness is measured at the upper limits of normal. Normal left ventricular size. RIGHT VENTRICLE Normal right ventricular size and systolic function. LEFT ATRIUM The left atrial size is normal. RIGHT ATRIUM The right atrial size is normal. ATRIAL SEPTUM Normal atrial septal thickness without atrial level shunting by limited color doppler interrogation. AORTA The aortic root and proximal ascending aorta are normal in size on limited imaging. MITRAL VALVE Structurally normal mitral valve. No mitral valve stenosis or regurgitation. AORTIC VALVE The aortic valve is not well visualized. TRICUSPID VALVE There is mild tricuspid valve regurgitation. The estimated pulmonary arterial pressure is 33 mmHg. PULMONARY VALVE No pulmonary valve regurgitation or stenosis. VESSELS The inferior vena cava is normal in size. PERICARDIUM No pericardial effusion. Jose Shepherd MD (Electronically Signed) Final Date:12 September 2017 14:43
[2017-09-12] MEDS: RESP: ALBUTEROL 2.5 MG/IPRATROPIUM 0.5 MG NEB (SCH) NEB ×2 (15:59→20:32)
--- NOTE | 2017-09-12 20:24 | MG ---
cc: MARIAM DONATO MD Lab No: [id number] Date: 09/12/17 Age: Sex: F Race: 1955 A 61-year female, intubated, unresponsive. Electrical artifact in the frontal channels. Posterior rhythm demonstrating 1-2 Hz activity, 20-40 microvolts. Attenuation improvement of electrical artifact. No driving with photic stimulation. Minimal EEG variability reactivity. Single lead EKG showing sinus tachycardia. INTERPRETATION Severe encephalopathy. Clinical correlation. MD CHANTALE Neves/ /7:49 PM /8:12 PM
[2017-09-12] MEDS: MULTIVITAMIN INJ 10 ML, FOLIC ACID INJ 1 MG, INSULIN HUMAN REGULAR INJ 40 UNITS in AMIN... IV-CENTRAL SCH (20:35)
[2017-09-13] VITALS (20 sets, daily range): BP systolic 122–160; BP diastolic 65–78; PULSE 95–107; RESP 17–32; TEMP 98–98.8; O2SAT 92–100
[2017-09-13] MEDS: BUMETANIDE INJ 1 MG/4 ML VIAL IV PUSH SCH ×3 (02:09→18:00)
[2017-09-13] MEDS: metroNIDAZOLE 500 MG INJ 100 ML IV SCH ×4 (03:38→21:58)
--- NOTE | 2017-09-13 04:07 | RADRPT ---
EXAM DATE/TIME: 09/13/2017 03:16 [facility] COMPARISON: CHEST SINGLE AP, September 12, 2017, 5:09. INDICATIONS : Shortness of breath. MEDICAL HISTORY : None. SURGICAL HISTORY : None. ENCOUNTER: Subsequent ACUITY: 2 weeks PAIN SCORE: Non-responsive. LOCATION: Bilateral chest FINDINGS: The tip of the ET tube is 2.7 cm from the jb. The NG tube is directed into the stomach. There is a right internal jugular central line in place with the tip overlying the SVC. The heart size is bord taras enlarged. The lungs demonstrate diffuse consolidation. CONCLUSION: Diffuse consolidation likely related to diffuse processes such as edema or diffuse infection. Damian Vang MD on September 13, 2017 at 4:04 Board Certified Radiologist. This report was verified electronically.
[2017-09-13 04:12] LABS: AUTOMATED NEUTROPHIL # 7.2 TH/MM3 (1.8-7.7); BASOPHIL % 0.1 % (0.0-2.0); EOSINOPHIL % 0.5 % (0.0-4.0); HEMATOCRIT 23.4 % (35.0-46.0); LYMPH % 5.6 % (9.0-44.0); LYMPHOCYTE # 0.5 TH/MM3 (1.0-4.8); MEAN CELL VOLUME 89.8 FL (80.0-100.0); MEAN CORPUSCULAR HEMOGLOBIN 29.2 PG (27.0-34.0); MEAN CORPUSCULAR HGB CONC 32.5 % (32.0-36.0); MONO % 5.1 % (0.0-8.0); NEUT % 88.7 % (16.0-70.0); PLATELET COUNT 118 TH/MM3 (150-450); RED BLOOD COUNT 2.61 MIL/MM3 (4.00-5.30); RED CELL DISTRIBUTION WIDTH 17.2 % (11.6-17.2); WHITE BLOOD COUNT 8.1 TH/MM3 (4.0-11.0)
[2017-09-13 04:16] LABS: HEMO FLAGS AUTO DIFF
[2017-09-13] MEDS: RESP: ALBUTEROL 2.5 MG/IPRATROPIUM 0.5 MG NEB (SCH) NEB ×3 (04:30→20:07)
[2017-09-13 04:45] LABS: ANION GAP 8 MEQ/L (5-15); AST (GOT) 42 U/L (15-37); BICARBONATE 22.8 MEQ/L (21.0-32.0); BLOOD UREA NITROGEN 40 MG/DL (7-18); CHLORIDE 107 MEQ/L (98-107); GLOMERULAR FILTRATION RATE 24 ML/MIN (>89); MAGNESIUM 1.8 MG/DL (1.5-2.5); POTASSIUM 3.6 MEQ/L (3.5-5.1); SODIUM (NA) 138 MEQ/L (136-145)
[2017-09-13] MEDS ORDERED: ALTEPLASE RECOMBINANT 2 MG VIAL IV FLUSH PRN (04:45)
[2017-09-13] MEDS ORDERED: ALTEPLASE RECOMBINANT 2 MG VIAL IV FLUSH ONE (04:45)
[2017-09-13 04:47] LABS: ALT (GPT) 28 U/L (10-53)
[2017-09-13 04:48] LABS: ALKALINE PHOSPHATASE 380 U/L (45-117); TOTAL BILIRUBIN ADULT 1.1 MG/DL (0.2-1.0)
[2017-09-13] MEDS: HYDROCORTISONE SOD SUCCINATE 100 MG VIAL IV PUSH SCH ×3 (05:17→21:59)
[2017-09-13] MEDS: LEVOTHYROXINE SODIUM 100 MCG VIAL IV PUSH SCH (05:18)
[2017-09-13] MEDS: ENOXAPARIN SODIUM 40 MG/0.4 ML SYRINGE SQ SCH (05:18)
[2017-09-13] MEDS: RESP: ALBUTEROL 2.5 MG/IPRATROPIUM 0.5 MG NEB (PRN) NEB (07:54)
[2017-09-13 08:07] LABS: BANDS 6 % (0-6); CORRECTED NUCLEATED RBC 1 /100 WBC (0-0); MYELOCYTES 3 % (0-0); POLYS (SEG NEUTROPHILS) 78 % (16-70); WBC DIFF SAMPLE 100
[2017-09-13 08:08] LABS: PLATELET ESTIMATE SMEAR LOW (NORMAL); PLATELET MORPHOLOGY NORMAL (NORMAL); SCAN/DIFF FINAL DIFF MANUAL
[2017-09-13] MEDS: SODIUM CHLORIDE 0.9% FLUSH 10 ML FLUSH IV FLUSH SCH ×2 (09:00→21:58)
[2017-09-13] MEDS: ALBUMIN 25% INJ 100 ML IV SCH ×2 (09:37→16:29)
[2017-09-13] MEDS: CEFEPIME INJ 2,000 MG in SODIUM CHLORIDE 0.9% INJ 100 ML IV SCH ×2 (09:37→21:57)
[2017-09-13] MEDS: PANTOPRAZOLE SODIUM 40 MG VIAL IV PUSH SCH (09:38)
[2017-09-13] MEDS: levETIRAcetam INJ 500 MG in SODIUM CHLORIDE 0.9% INJ 100 ML IV SCH ×2 (09:38→21:58)
[2017-09-13] MEDS: CHLORHEXIDINE 0.12% (ORAL KIT) 15 ML CUP OROPHARYNG SCH (09:39)
[2017-09-13] MEDS: INSULIN ASPART SUPPLEMENTAL SCALE SQ SCH ×3 (10:28→18:00)
--- NOTE | 2017-09-13 11:04 | HHI.IDPN ---
Note Infectious Disease Note Patient is on the vent. 50% FIO2. Off sedation. Unresponsive. D/W RN. Withdraws extremities. Afebrile. Presented to the emergency department on September 07 and was diagnosed with small bowel obstruction. She was taken to surgery and was found to have necrosed, perforated small bowel and she underwent small bowel resection. The patient previously had elective gastric sleeve on 08/22/2017. After that she was having nausea and vomiting and then difficulty passing stools. During the surgical procedure the patient had some purulent material within the abdomen. PAST MEDICAL HISTORY 1. Rheumatoid arthritis 2. Hypothyroidism 3. Gout 4. Depression 5. Seizure disorder 6. Attention deficit disorder 7. Cholecystectomy 8. Tonsillectomy 9. Ankle arthroplasty 10. Gastric sleeve. 08/22/17. ALLERGIES PROPOXYPHENE DARVOCET ADHESIVE TAPES ANTIBIOTICS 1. Cefepime. 2. Fluconazole. 3. Metronidazole. SOCIAL HISTORY The patient is . Rare alcohol use noted. No tobacco. OBJECTIVE: Vital Signs Date Time Temp Pulse Resp B/P (MAP) Pulse Ox O2 Delivery O2 Flow Rate FiO2 09/13/17 07:54 95 50 09/13/17 06:00 96 09/13/17 04:49 96 Ventilator 50 09/13/17 04:24 97 50 09/13/17 04:00 50 09/13/17 04:00 98.1 96 22 143/75 (97) 96 09/13/17 04:00 96 09/13/17 03:40 50 09/13/17 03:38 92 Ventilator 40 09/13/17 02:00 96 09/13/17 00:00 96 09/13/17 00:00 98.0 96 22 127/65 (85) 95 09/13/17 00:00 40 09/12/17 22:00 96 09/12/17 20:27 98 40 09/12/17 20:00 96 09/12/17 20:00 40 09/12/17 20:00 97.8 96 22 132/71 (91) 98 09/12/17 18:00 96 09/12/17 16:04 96 40 09/12/17 16:00 40 09/12/17 16:00 96 09/12/17 16:00 97.6 96 22 140/79 (99) 95 09/12/17 14:00 96 09/12/17 12:00 98.1 100 22 148/80 (102) 97 09/12/17 12:00 100 09/12/17 12:00 40 09/12/17 11:31 97 40 Laboratory Tests Test 09/12/17 03:46 09/12/17 13:23 09/13/17 03:48 White Blood Count 6.8 TH/MM3 7.9 TH/MM3 8.1 TH/MM3 Red Blood Count 2.50 MIL/MM3 2.53 MIL/MM3 2.61 MIL/MM3 Hemoglobin 7.5 GM/DL 7.8 GM/DL 7.6 GM/DL Hematocrit 22.6 % 22.8 % 23.4 % Mean Corpuscular Volume 90.3 FL 90.2 FL 89.8 FL Mean Corpuscular Hemoglobin 29.8 PG 30.9 PG 29.2 PG Mean Corpuscular Hemoglobin Concent 33.0 % 34.3 % 32.5 % Red Cell Distribution Width 17.3 % 17.5 % 17.2 % Platelet Count 128 TH/MM3 116 TH/MM3 118 TH/MM3 Mean Platelet Volume 7.0 FL 7.4 FL 7.1 FL Neutrophils (%) (Auto) 90.9 % 90.6 % 88.7 % Lymphocytes (%) (Auto) 5.4 % 4.9 % 5.6 % Monocytes (%) (Auto) 3.4 % 4.3 % 5.1 % Eosinophils (%) (Auto) 0.1 % 0.1 % 0.5 % Basophils (%) (Auto) 0.2 % 0.1 % 0.1 % Neutrophils # (Auto) 6.1 TH/MM3 7.1 TH/MM3 7.2 TH/MM3 Lymphocytes # (Auto) 0.4 TH/MM3 0.4 TH/MM3 0.5 TH/MM3 Monocytes # (Auto) 0.2 TH/MM3 0.3 TH/MM3 0.4 TH/MM3 Eosinophils # (Auto) 0.0 TH/MM3 0.0 TH/MM3 0.0 TH/MM3 Basophils # (Auto) 0.0 TH/MM3 0.0 TH/MM3 0.0 TH/MM3 CBC Comment AUTO DIFF AUTO DIFF AUTO DIFF Differential Total Cells Counted 100 100 100 Neutrophils % (Manual) 79 % 74 % 78 % Band Neutrophils % 15 % 14 % 6 % Lymphocytes % 5 % 8 % 8 % Monocytes % 1 % 3 % 5 % Neutrophils # (Manual) 6.4 TH/MM3 7.0 TH/MM3 7.0 TH/MM3 Nucleated Red Blood Cells 1 /100 WBC 1 /100 WBC 1 /100 WBC Differential Comment FINAL DIFF MANUAL FINAL DIFF MANUAL FINAL DIFF MANUAL Dohle Bodies PRESENT Platelet Estimate LOW LOW LOW Platelet Morphology Comment NORMAL NORMAL NORMAL Myelocytes 1 % 3 % Red Cell Morphology Comment NORMAL Laboratory Tests Test 09/11/17 14:10 09/12/17 03:46 09/12/17 13:23 09/12/17 22:10 Blood Urea Nitrogen 26 MG/DL 32 MG/DL 34 MG/DL Creatinine 1.41 MG/DL 1.67 MG/DL 1.82 MG/DL Random Glucose 215 MG/DL 224 MG/DL 232 MG/DL Total Protein 4.6 GM/DL 5.1 GM/DL 5.4 GM/DL Calcium Level 6.8 MG/DL 7.2 MG/DL 7.6 MG/DL Magnesium Level 1.7 MG/DL 1.7 MG/DL 1.7 MG/DL Sodium Level 136 MEQ/L 136 MEQ/L 136 MEQ/L Potassium Level 3.6 MEQ/L 3.3 MEQ/L 3.3 MEQ/L 3.4 MEQ/L Chloride Level 107 MEQ/L 105 MEQ/L 105 MEQ/L Carbon Dioxide Level 20.9 MEQ/L 21.6 MEQ/L 21.4 MEQ/L Anion Gap 8 MEQ/L 9 MEQ/L 10 MEQ/L Estimat Glomerular Filtration Rate 38 ML/MIN 31 ML/MIN 28 ML/MIN Protein Corrected Calcium 8.1 MG/DL 8.3 MG/DL Albumin 2.8 GM/DL 2.8 GM/DL Alkaline Phosphatase 243 U/L 301 U/L Aspartate Amino Transf (AST/SGOT) 37 U/L 36 U/L Alanine Aminotransferase (ALT/SGPT) 29 U/L 28 U/L Total Bilirubin 0.9 MG/DL 1.0 MG/DL Test 09/13/17 03:48 Blood Urea Nitrogen 40 MG/DL Creatinine 2.09 MG/DL Random Glucose 232 MG/DL Total Protein 5.4 GM/DL Albumin 2.9 GM/DL Calcium Level 7.7 MG/DL Magnesium Level 1.8 MG/DL Alkaline Phosphatase 380 U/L Aspartate Amino Transf (AST/SGOT) 42 U/L Alanine Aminotransferase (ALT/SGPT) 28 U/L Total Bilirubin 1.1 MG/DL Sodium Level 138 MEQ/L Potassium Level 3.6 MEQ/L Chloride Level 107 MEQ/L Carbon Dioxide Level 22.8 MEQ/L Anion Gap 8 MEQ/L Estimat Glomerular Filtration Rate 24 ML/MIN Microbiology Date/Time Source Procedure Growth Status 09/10/17 08:30 Blood Peripheral Aerobic Blood Culture - Preliminary NO GROWTH IN 2 DAYS Resulted 09/10/17 08:30 Blood Peripheral Anaerobic Blood Culture - Preliminary NO GROWTH IN 2 DAYS Resulted IMAGING: Chest X-Ray 09/13/17599 Signed Impressions: Service Date/Time: Wednesday, September 13, 2017 03:16 - CONCLUSION: Diffuse consolidation likely related to diffuse processes such as edema or diffuse infection. Damian Vang MD Chest X-Ray 09/12/17599 Signed Impressions: Service Date/Time: Tuesday, September 12, 2017 05:09 - CONCLUSION: Diffuse pulmonary consolidation likely representing diffuse processes such as edema or diffuse infection/inflammatory change. Damian Vang MD Chest X-Ray 09/10/17599 Signed Impressions: Service Date/Time: Sunday, September 10, 2017 05:28 - CONCLUSION: Suboptimal Midinspiratory mildly rotated study with increased opacity greatest in the left lung. This could indicate infiltrate or could be partially artifactual and due to the Midinspiratory view and rotation. Yuri Holt MD Abdomen Fluoroscopy 09/08/17 0000 Signed Impressions: Service Date/Time: Friday, September 08, 2017 12:04 - CONCLUSION: Uncomplicated nasogastric tube placement as above. Tae Archuleta Jr., MD Abdomen/Pelvis CT 09/07/17 0000 Signed Impressions: Service Date/Time: August 12:20 - CONCLUSION: 1. Small bowel obstruction with transition point in the lower abdomen adjacent to an area of indurated mesentery. 2. Marked dilation of the intrahepatic biliary system , up to 2.2 cm, and some mild distention of the intrahepatic biliary system. Differential considerations include a distal biliary obstruction and reservoir effect from prior cholecystectomy. Tae Roblero MD PHYSICAL EXAM: GENERAL: Patient is on the vent. Unresponsive. HEENT: Head atraumatic, No icterus. Oropharynx intubated. NECK: Supple. No adenopathy. LUNGS: Bilateral rales. CARDIAC: Regular rate and rhythm. no murmurs, rubs or gallops. ABDOMEN: Obese. Soft. Unable to appreciate tenderness. Arnie drains has mateo clear drainage. EXTREMITIES: No clubbing, cyanosis. Trace edema at the hands and feet. SKIN: No rash. Warm and moist. NEURO: unable to assess. IMPRESSION 1. Septic shock. 2. Post exploratory laparotomy and small bowel resection along with lysis of adhesions for small bowel perforation. 3. Peritonitis due to due to small bowel perforation. 4. Acute respiratory failure. 5. VAP gram negative. E. coli. 6. Acute kidney disease. ? sepsis related. ? medication. RECOMMENDATIONS 1. Continue Cefepime 2. Continue Metronidazole 3. Continue Fluconazole 4. Monitor blood culture. 5. Culture abdominal drainage. 6. Follow clinical status. Jus Enriquez MD Sep 13, 2017 11:04
[2017-09-13] MEDS ORDERED: DEXTROSE 50% IN WATER 50 ML VIAL(D50) IV PUSH PRN (12:30)
[2017-09-13] MEDS ORDERED: GLUCAGON 1 MG/ML VIAL OTHER PRN (12:30)
--- NOTE | 2017-09-13 12:52 | HHI.CCPN ---
Subjective Remarks/Hospital Course 61-year-old morbidly obese female presents, patient of Dr. Epstein, status post gastric sleeve 08-22-17 now presents with nonbloody emesis and unable to have a bowel movement for a couple days. She states to get that bowel movement she had a use a glycerin suppository and it was just loose. He was taken emergently to operating room and was found to have a small bowel ischemia. She underwent laparoscopic small bowel resection by Dr. Epstein and is postoperatively admitted to critical care unit SUBJ 09/09/17: Remains very critically ill. Profound septic shock requiring Levophed at 40 mcg/m, Des-Synephrine at 500 mcg/m, vasopressin at 0.04 international units, and to be demand 5 g per KG per minute. Urine output 150 mL overnight. Maintaining oxygen saturation. A.m. labs are pending at this time. Surprisingly patient is still mentating able to communicate. Remains on IV fentanyl infusion for pain control. Operative report is pending at this time. Received total of 9 L of crystalloid postoperatively. Receiving 2 units of PRBC. I will replace calcium. Lactic acid 3.5 at 4 AM 09/10: Critically ill but stable. Levophed down to 12 mcg/min, vasopressin at 0.04 IU. Uo 650 ml in 24 hours, bilateral abdominal drains with 1 L output. Right drain had greenish output overnight and now serosanguineous. D/ W Dr Epstein- he confirms perforation and gross contamination 09/11: Remains critically. FiO2 requirement up to 60%, I have increased PEEP to 10. CXR consistent with ARDS versus fluid overload. Creatinine increased to 1.24. Urine output 600 ml in 24 hours. CVP 18-20. Start IV Bumex 1 mg every 12 hours with additional 1 mg dose now. Levophed at 1 mcg/min, vasopressin at 0.04 IU 09/12: remains critically ill but stable to improving. SBP 130-140 on vasopressin will DC vasopressin. Chest x-ray shows bilateral pulmonary edema, but oxygenation has improved. Stable on 50% and PEEP of 10. Creatinine has worsened to 1.67 but urine output 1.5 L in 24 hours with Bumex. CVP remains about 20. Will increase Bumex to 1 mg every 8 hours and give additional 1 mg now. Closely monitor creatinine. 09/13: Weaning off vasopressors. SHEA persists. CXR with diffuse infiltrates , will switch modes for better recruitment hopefully. Objective Vital Signs Date Time Temp Pulse Resp B/P (MAP) Pulse Ox O2 Delivery O2 Flow Rate FiO2 09/13/17 12:00 50 09/13/17 12:00 98.0 98 32 141/74 (96) 100 09/13/17 04:49 Ventilator Intake and Output 09/13/17 09/13/17 09/14/17 08:00 16:00 00:00 Intake Total 200 ml Output Total 3370 ml Balance -3170 ml Result Diagram: 09/13/17 03409/[id number]/[id number] Objective Remarks Infusions: Vasopressin at 0.04 international units GENERAL: Obese female sedated and intubated. SKIN: Warm and dry. HEAD: Normocephalic. EYES: No scleral icterus. No injection or drainage. NECK: Supple, trachea midline. No JVD or lymphadenopathy. Orotracheally intubated CARDIOVASCULAR: S1-S2 normal no murmurs. Heart sounds distant RESPIRATORY: Breath sounds equal bilaterally, with bilateral fine crackles. No accessory muscle use. GASTROINTESTINAL: Abdomen soft, tender, distended. Morbidly obese. Bilateral ROSSI drains in place 620 ml combined output in 24 hour. Slightly cloudy output. Trochar incisions sites CDI MUSCULOSKELETAL: No cyanosis, or edema. NEURO EXAM: Sedated and intubated, not following commands but withdraws all extremities. Pupils are round, reactive to light. A/P Assessment and Plan A/P: NEURO: Seizure disorder - Currently off all sedation - Keppra IV. Check EEG RESP: Acute hypoxemic respiratory failure ARDS HCAP with E Coli - Continue mechanical ventilation/PRVC mode, keep peak pressure <40 considering morbid obesity, Wean FiO2 and PEEP keeping SaO2> 90% - No weaning until hemodynamically stable, CXR improved - ABG, CXR daily, Vent bundle - DuoNeb every 6 hours scheduled and when necessary - Diuresis as below - Bilateral pulmonary opacities may be fluid overload versus acute lung injury/ ARDS CVS: Septic shock-resolving Lactic acidosis - Right femoral arterial line placed and flow track monitoring initiated 09/09- Art line dislodged 09/11 - no need to replace art line as patient is now off all pressors - s/p Aggressive IV fluid resuscitation, postop received 9 L of normal saline, 2 units of PRBC - Increase IV bumex 1 mg IV q8, with additional 1 mg IV now - Hydrocortisone stress dose-start weaning 09/13 GI: Small bowel ischemia/Perforation Peritonitis - POD # 5 S/P Laparoscopic SBR for gangrenous small bowel - Post op surgical management per Dr. Epstein general surgery - NPO, IV Protonix. Started TPN 09/10/17 : Acute kidney failure - ATN most likely from severe septic shock - Continue Bumex as above - Maintain [place] for accurate intake output HEME: Anemia - s/p 2 units of PRBC, transfuse to keep Hb >7.5 - Monitor H&H - Drop in platelet most likely sepsis, monitor ID: Septic shock Peritonitis HCAP with E Coli - Broad-spectrum antibiotic - Levaquin, Flagyl, Diflucan, vancomycin, cefepime. DC Levaquin today - Sputum culture E Coli - Blood cultures, urine culture follow up - ID following ENDO: Diabetes mellitus Hypocalcemia - Insulin sliding scale, and IV insulin with TPN - Electrolyte replacement per protocol DVT GI prophylaxis - Teds SCDs - Pharmacological DVT prophylaxis Lovenox 40 mg subcutaneous every 12- reduce to 40 qd due to worsening creatinine - Protonix Critical Care: The total critical care time was 35 minutes. Time to perform other separately billable procedures was not included in the critical care time. D/W Dr. Hernandez, and updated sister at bedside Overall impression: Remains critically ill. There is improvement in septic shock, but persistent ARDS, severe hypoxemia and acute kidney injury. Critical care 39 mins Jose Landin MD Sep 13, 2017 12:52
[2017-09-13] MEDS: INSULIN DETEMIR 100 UNITS/ML VIAL SQ SCH ×2 (14:03→21:57)
[2017-09-13] MEDS ORDERED: PROPOFOL 1000 MG/100 ML INJ 100 ML IV PRN (15:00)
[2017-09-13] MEDS ORDERED: POTASSIUM CHLOR 40 MEQ PREMIX 100 ML IV ONE (15:00)
[2017-09-13 15:24] LABS: BLOOD GAS VENOUS BASE EXCESS -3.2 mmol/L (-2-2); BLOOD GAS VENOUS HCO3 24 mmol/L (22-26); BLOOD GAS VENOUS O2 CONTENT 10.1 Vol % (9.0-17.0); BLOOD GAS VENOUS O2 HGB SAT 85 % (70-76); BLOOD GAS VENOUS PCO2 63 mmHg (44-48); BLOOD GAS VENOUS PO2 65 mmHg (35-40); CRITICAL VALUE YES; OXYGEN DEVICE VENTILATOR; TEMP CORR TO 98.6
[2017-09-13 15:25] LABS: DRAW SITE CENTRAL LINE; FIO2 75 %; STAT NO; VENT SETTINGS APRV
[2017-09-13 16:52] LABS: BLOOD GAS VENOUS BASE EXCESS -3.3 mmol/L (-2-2); BLOOD GAS VENOUS HCO3 24 mmol/L (22-26); BLOOD GAS VENOUS O2 CONTENT 9.5 Vol % (9.0-17.0); BLOOD GAS VENOUS O2 HGB SAT 82 % (70-76); BLOOD GAS VENOUS PCO2 62 mmHg (44-48); BLOOD GAS VENOUS PO2 62 mmHg (35-40); TEMP CORR TO 98.6
--- NOTE | 2017-09-13 16:52 | HHI.PR ---
Subjective Subjective Notes Remains intubated Off sedation/pressors Objective Vitals/I&O Vital Signs Date Time Temp Pulse Resp B/P (MAP) Pulse Ox O2 Delivery O2 Flow Rate FiO2 09/13/17 16:20 95 60 09/13/17 14:00 99 09/13/17 12:00 98.0 32 141/74 (96) 09/13/17 04:49 Ventilator Labs Laboratory Tests Test 09/12/17 22:10 09/13/17 03:48 09/13/17 15:10 09/13/17 15:16 Potassium Level 3.4 3.6 White Blood Count 8.1 Red Blood Count 2.61 Hemoglobin 7.6 Hematocrit 23.4 Mean Corpuscular Volume 89.8 Mean Corpuscular Hemoglobin 29.2 Mean Corpuscular Hemoglobin Concent 32.5 Red Cell Distribution Width 17.2 Platelet Count 118 Mean Platelet Volume 7.1 Neutrophils (%) (Auto) 88.7 Lymphocytes (%) (Auto) 5.6 Monocytes (%) (Auto) 5.1 Eosinophils (%) (Auto) 0.5 Basophils (%) (Auto) 0.1 Neutrophils # (Auto) 7.2 Lymphocytes # (Auto) 0.5 Monocytes # (Auto) 0.4 Eosinophils # (Auto) 0.0 Basophils # (Auto) 0.0 CBC Comment AUTO DIFF Differential Total Cells Counted 100 Neutrophils % (Manual) 78 Band Neutrophils % 6 Lymphocytes % 8 Monocytes % 5 Neutrophils # (Manual) 7.0 Myelocytes 3 Nucleated Red Blood Cells 1 Differential Comment FINAL DIFF MANUAL Platelet Estimate LOW Platelet Morphology Comment NORMAL Red Cell Morphology Comment NORMAL Blood Urea Nitrogen 40 Creatinine 2.09 Random Glucose 232 Total Protein 5.4 Albumin 2.9 Calcium Level 7.7 Magnesium Level 1.8 Alkaline Phosphatase 380 Aspartate Amino Transf (AST/SGOT) 42 Alanine Aminotransferase (ALT/SGPT) 28 Total Bilirubin 1.1 Sodium Level 138 Chloride Level 107 Carbon Dioxide Level 22.8 Anion Gap 8 Estimat Glomerular Filtration Rate 24 Blood Gas Puncture Site CENTRAL LINE Blood Gas Patient Temperature 98.6 Venous Blood pH 7.20 Venous Blood Partial Pressure CO2 63 Venous Blood Partial Pressure O2 65 Venous Blood HCO3 24 Venous Blood Oxygen Saturation 85 Venous Blood Oxygen Content 10.1 Venous Blood Base Excess -3.2 Oxygen Delivery Device VENTILATOR Blood Gas Ventilator Setting APRV Blood Gas Inspired Oxygen 75 Date/Time Source Procedure Growth Status 09/10/17 08:30 Blood Peripheral Aerobic Blood Culture - Preliminary NO GROWTH IN 3 DAYS Resulted 09/10/17 08:30 Blood Peripheral Anaerobic Blood Culture - Preliminary NO GROWTH IN 3 DAYS Resulted 09/08/17 21:10 Sputum Oral Tracheal Aspirate Gram Stain - Final Complete 09/08/17 21:10 Sputum Culture - Final Escherichia Coli Complete 09/09/17 09:45 Urine Clean Catch Urine Culture - Final NO GROWTH IN 48 HOURS. Complete Radiology Last Impressions Chest X-Ray 09/13/17 0600 Signed Impressions: Service Date/Time: Wednesday, September 13, 2017 03:16 - CONCLUSION: Diffuse consolidation likely related to diffuse processes such as edema or diffuse infection. Damian Vang MD Abdomen Fluoroscopy 09/08/17 0000 Signed Impressions: Service Date/Time: Friday, September 08, 2017 12:04 - CONCLUSION: Uncomplicated nasogastric tube placement as above. Tae Archuleta Jr., MD Abdomen/Pelvis CT 09/07/17 0000 Signed Impressions: Service Date/Time: August 12:20 - CONCLUSION: 1. Small bowel obstruction with transition point in the lower abdomen adjacent to an area of indurated mesentery. 2. Marked dilation of the intrahepatic biliary system , up to 2.2 cm, and some mild distention of the intrahepatic biliary system. Differential considerations include a distal biliary obstruction and reservoir effect from prior cholecystectomy. Tae Roblero MD Cardiovascular: Regular Lungs: Other (diminished throughout ) Abdomen: Other (Soft with rare bowel sounds) Extremities: Other (edematous) Wound Wound #1: Wound Location: Abdomen Appearance: Clean & Dry Drainage: Clear (Left ROSSI site) Wound #2: Wound Location: Abdomen Appearance: Clean & Dry (right ROSIS site) A/P Assessment and Plan 61yo F with small bowel perforation and peritonitis -Continue to wean vent support as appropriate -Continue to monitor fluid status -TPN for nutrition Flower Gomez Sep 13, 2017 16:52
[2017-09-13 16:53] LABS: OXYGEN DEVICE VENTILATOR
[2017-09-13 16:54] LABS: DRAW SITE SWAN GANZ LINE; FIO2 60 %; VENT SETTINGS APRV
[2017-09-13 16:55] LABS: STAT NO
[2017-09-13] MEDS: SODIUM BICARBONATE 8.4% INJ 150 MEQ in WATER STERILE FOR INJ 850 ML IV SCH (18:26)
--- NOTE | 2017-09-13 20:23 | HHI.NPPN ---
Subjective History of Present Illness Patient is a 61-year-old morbidly obese female who underwent gastric sleeve operation earlier this month on 08/23/17, patient has obstructive symptoms she was admitted and then as been doing well until when she developed the abdominal pain nausea vomiting and patient has been brought her back to the emergency. She had diagnoses of peritonitis, bowel obstruction, septic shock. Underwent surgical bowel resection due to perforation currently intubated Objective Data Data 09/13/17 09/14/17 19:00 07:00 Intake Total 1556 ml 505 ml Output Total 3440 ml Balance -1884 ml 505 ml IV Total 1556 ml 505 ml Output Urine Total 3150 ml Gastric Drainage Total 10 ml Drainage Total 280 ml # Bowel Movements 0 Vital Signs Date Time Temp Pulse Resp B/P (MAP) Pulse Ox O2 Delivery O2 Flow Rate FiO2 09/13/17 20:07 97 50 09/13/17 18:00 100 09/13/17 16:20 95 60 09/13/17 16:00 98.8 95 24 127/69 (88) 95 09/13/17 16:00 107 09/13/17 16:00 50 09/13/17 14:30 95 75 09/13/17 14:00 99 09/13/17 12:00 50 09/13/17 12:00 98.0 98 32 141/74 (96) 100 09/13/17 12:00 99 09/13/17 11:17 100 50 09/13/17 10:00 100 09/13/17 08:00 98 09/13/17 08:00 98.1 98 28 160/78 (105) 95 09/13/17 08:00 50 09/13/17 07:54 95 50 09/13/17 06:00 96 09/13/17 04:49 96 Ventilator 50 09/13/17 04:24 97 50 09/13/17 04:00 50 09/13/17 04:00 98.1 96 22 143/75 (97) 96 09/13/17 04:00 96 09/13/17 03:40 50 09/13/17 03:38 92 Ventilator 40 09/13/17 02:00 96 09/13/17 00:00 96 09/13/17 00:00 98.0 96 22 127/65 (85) 95 09/13/17 00:00 40 09/12/17 22:00 96 09/12/17 20:27 98 40 -: 09/13/17 0348 09/13/17 0348 Physical Exam General Appearance: Well Developed, Well Nourished Neck Neck Exam: Neck Supple Pulmonary Resp Exam: Decreased Bases Cardiology CV Exam: Regular Gastrointestinal/Abdomen GI Exam: Soft, Bowel Sounds Absent Extremeties Extremities Exam: Pitting Edema, Dependent Edema Assessment/Plan Problem List: (1) Acute renal failure ICD Codes: N17.9 - Acute kidney failure, unspecified Plan: Patient was in septic shock and now recovering patient is responding to Lasix 40 mg every 8 hourly for diuresis after volume resuscitation she is on Bicarg drip uop 6 L Cr higher 2.09 BMP monitored Avoid nephrotoxic medications (2) Small bowel obstruction ICD Codes: K56.609 - Unspecified intestinal obstruction, unspecified as to partial versus complete obstruction Status: Acute Plan: Status post surgical intervention (3) Ileus following gastrointestinal surgery ICD Codes: K91.30 - Postprocedural intestinal obstruction, unspecified as to partial versus complete Plan: Continue to monitor Annita Bond MD Sep 13, 2017 20:23
[2017-09-13] MEDS: MULTIVITAMIN INJ 10 ML, FOLIC ACID INJ 1 MG, INSULIN HUMAN REGULAR INJ 40 UNITS in AMIN... IV-CENTRAL SCH (21:57)
[2017-09-13] MEDS: CHLORHEXIDINE 0.12% (ORAL KIT) 15 ML CUP MT SCH (21:58)
[2017-09-13] MEDS: FUROSEMIDE 40 MG/4 ML VIAL IV PUSH SCH (21:59)
[2017-09-13 22:14] LABS: BLOOD GAS VENOUS BASE EXCESS -1.1 mmol/L (-2-2); BLOOD GAS VENOUS HCO3 25 mmol/L (22-26); BLOOD GAS VENOUS O2 CONTENT 9.3 Vol % (9.0-17.0); BLOOD GAS VENOUS O2 HGB SAT 82 % (70-76); BLOOD GAS VENOUS PCO2 56 mmHg (44-48); BLOOD GAS VENOUS PO2 52 mmHg (35-40); BLOOD GAS VENOUS pH 7.27 (7.360-7.400); CRITICAL VALUE YES; OXYGEN DEVICE VENTILATOR
[2017-09-13 22:16] LABS: DRAW SITE ALINE; FIO2 50 %; STAT NO
[2017-09-13 23:38] LABS: BLOOD GAS VENOUS BASE EXCESS -1.6 mmol/L (-2-2); BLOOD GAS VENOUS HCO3 24 mmol/L (22-26); BLOOD GAS VENOUS O2 CONTENT 9.2 Vol % (9.0-17.0); BLOOD GAS VENOUS O2 HGB SAT 86 % (70-76); BLOOD GAS VENOUS PCO2 49 mmHg (44-48); BLOOD GAS VENOUS PO2 55 mmHg (35-40); BLOOD GAS VENOUS pH 7.31 (7.360-7.400); CRITICAL VALUE YES; OXYGEN DEVICE VENTILATOR; TEMP CORR TO 98.6
[2017-09-13 23:39] LABS: DRAW SITE ALINE; FIO2 50 %
[2017-09-14] VITALS (19 sets, daily range): BP systolic 133–177; BP diastolic 65–93; PULSE 96–110; RESP 20–25; TEMP 97.8–98.8; O2SAT 95–100
[2017-09-14] MEDS: INSULIN ASPART SUPPLEMENTAL SCALE SQ SCH ×4 (00:41→18:30)
[2017-09-14] MEDS: ALBUMIN 25% INJ 100 ML IV SCH ×3 (00:41→15:49)
[2017-09-14] MEDS: RESP: ALBUTEROL 2.5 MG/IPRATROPIUM 0.5 MG NEB (SCH) NEB ×4 (02:14→21:18)
[2017-09-14] MEDS: metroNIDAZOLE 500 MG INJ 100 ML IV SCH ×4 (02:29→20:44)
[2017-09-14 05:08] LABS: BLOOD GAS BASE EXCESS -1.2 mmol/L (-2-2); BLOOD GAS HCO3 24 mmol/L (22-26); BLOOD GAS METHEMOGLOBIN 1.4 % (0-2); BLOOD GAS O2 HGB SATURATION 95 % (90-100); BLOOD GAS OXYGEN CONTENT 11.1 Vol % (12.0-20.0); BLOOD GAS PCO2 50 mmHg (38-42); BLOOD GAS PO2 107 mmHg (61-120); BLOOD GAS TOTAL HGB 8.1 G/DL (12.0-16.0); TEMP CORR TO 98.6
[2017-09-14 05:09] LABS: CRITICAL VALUE NO; OXYGEN DEVICE VENTILATOR
[2017-09-14 05:10] LABS: DRAW SITE RT BRACHIAL; FIO2 45 %; NUMBER OF ARTERIAL PUNCTURES 1; STAT NO
[2017-09-14 05:37] LABS: AUTOMATED NEUTROPHIL # 8.7 TH/MM3 (1.8-7.7); BASOPHIL % 0.2 % (0.0-2.0); EOSINOPHIL # 0.2 TH/MM3 (0-0.4); EOSINOPHIL % 1.9 % (0.0-4.0); HEMATOCRIT 24.7 % (35.0-46.0); LYMPH % 5.9 % (9.0-44.0); LYMPHOCYTE # 0.6 TH/MM3 (1.0-4.8); MEAN CELL VOLUME 90.5 FL (80.0-100.0); MEAN CORPUSCULAR HEMOGLOBIN 29.5 PG (27.0-34.0); MEAN CORPUSCULAR HGB CONC 32.6 % (32.0-36.0); MONO % 3.4 % (0.0-8.0); NEUT % 88.6 % (16.0-70.0); PLATELET COUNT 110 TH/MM3 (150-450); RED BLOOD COUNT 2.73 MIL/MM3 (4.00-5.30); RED CELL DISTRIBUTION WIDTH 17.2 % (11.6-17.2); WHITE BLOOD COUNT 9.8 TH/MM3 (4.0-11.0)
[2017-09-14] MEDS: SODIUM BICARBONATE 8.4% INJ 150 MEQ in WATER STERILE FOR INJ 850 ML IV SCH ×2 (05:37→19:57)
[2017-09-14] MEDS: FUROSEMIDE 40 MG/4 ML VIAL IV PUSH SCH (05:38)
[2017-09-14] MEDS: LEVOTHYROXINE SODIUM 100 MCG VIAL IV PUSH SCH (05:38)
[2017-09-14] MEDS: HYDROCORTISONE SOD SUCCINATE 100 MG VIAL IV PUSH SCH ×3 (05:38→22:14)
[2017-09-14] MEDS: ENOXAPARIN SODIUM 40 MG/0.4 ML SYRINGE SQ SCH (05:39)
[2017-09-14 05:46] LABS: HEMO FLAGS AUTO DIFF
[2017-09-14 06:04] LABS: BICARBONATE 25.1 MEQ/L (21.0-32.0); POTASSIUM 3.3 MEQ/L (3.5-5.1)
--- NOTE | 2017-09-14 06:39 | HHI.CCPN ---
Subjective Remarks/Hospital Course 61-year-old morbidly obese female presents, patient of Dr. Epstein, status post gastric sleeve 08-22-17 now presents with nonbloody emesis and unable to have a bowel movement for a couple days. She states to get that bowel movement she had a use a glycerin suppository and it was just loose. He was taken emergently to operating room and was found to have a small bowel ischemia. She underwent laparoscopic small bowel resection by Dr. Epstein and is postoperatively admitted to critical care unit SUBJ 09/09/17: Remains very critically ill. Profound septic shock requiring Levophed at 40 mcg/m, Des-Synephrine at 500 mcg/m, vasopressin at 0.04 international units, and to be demand 5 g per KG per minute. Urine output 150 mL overnight. Maintaining oxygen saturation. A.m. labs are pending at this time. Surprisingly patient is still mentating able to communicate. Remains on IV fentanyl infusion for pain control. Operative report is pending at this time. Received total of 9 L of crystalloid postoperatively. Receiving 2 units of PRBC. I will replace calcium. Lactic acid 3.5 at 4 AM 09/10: Critically ill but stable. Levophed down to 12 mcg/min, vasopressin at 0.04 IU. Uo 650 ml in 24 hours, bilateral abdominal drains with 1 L output. Right drain had greenish output overnight and now serosanguineous. D/ W Dr Epstein- he confirms perforation and gross contamination 09/11: Remains critically. FiO2 requirement up to 60%, I have increased PEEP to 10. CXR consistent with ARDS versus fluid overload. Creatinine increased to 1.24. Urine output 600 ml in 24 hours. CVP 18-20. Start IV Bumex 1 mg every 12 hours with additional 1 mg dose now. Levophed at 1 mcg/min, vasopressin at 0.04 IU 09/12: remains critically ill but stable to improving. SBP 130-140 on vasopressin will DC vasopressin. Chest x-ray shows bilateral pulmonary edema, but oxygenation has improved. Stable on 50% and PEEP of 10. Creatinine has worsened to 1.67 but urine output 1.5 L in 24 hours with Bumex. CVP remains about 20. Will increase Bumex to 1 mg every 8 hours and give additional 1 mg now. Closely monitor creatinine. 09/13: Weaning off vasopressors. SHEA persists. CXR with diffuse infiltrates , will switch modes for better recruitment hopefully. 09/14: Gas exchange improved on APRV. Renal function deteriorating. Remains fluid overloaded. Objective Vital Signs Date Time Temp Pulse Resp B/P (MAP) Pulse Ox O2 Delivery O2 Flow Rate FiO2 09/14/17 06:00 104 09/14/17 04:21 100 45 09/14/17 04:00 98.6 22 177/93 (121) 09/13/17 04:49 Ventilator Intake and Output 09/14/17 09/14/17 09/15/17 08:00 16:00 00:00 Intake Total 1573 ml Output Total 2740 ml Balance -1167 ml Result Diagram: 09/14/17 0445 09/14/17 0445 Other Results Laboratory Tests Test 09/13/17 15:10 09/13/17 15:16 09/13/17 21:59 09/13/17 23:30 Blood Gas Puncture Site SWAN SANG LINE CENTRAL LINE KIANNA HUTCHISON Blood Gas Patient Temperature 98.6 98.6 37.0 98.6 Venous Blood pH 7.20 (7.360-7.400) 7.20 (7.360-7.400) 7.27 (7.360-7.400) 7.31 (7.360-7.400) Venous Blood Partial Pressure CO2 62 mmHg (44-48) 63 mmHg (44-48) 56 mmHg (44-48) 49 mmHg (44-48) Venous Blood Partial Pressure O2 62 mmHg (35-40) 65 mmHg (35-40) 52 mmHg (35-40) 55 mmHg (35-40) Venous Blood HCO3 24 mmol/L (22-26) 24 mmol/L (22-26) 25 mmol/L (22-26) 24 mmol/L (22-26) Venous Blood Oxygen Saturation 82 % (70-76) 85 % (70-76) 82 % (70-76) 86 % ( 70-76) Venous Blood Oxygen Content 9.5 Vol % (9.0-17.0) 10.1 Vol % (9.0-17.0) 9.3 Vol % (9.0-17.0) 9.2 Vol % (9.0-17.0) Venous Blood Base Excess -3.3 mmol/L (-2-2) -3.2 mmol/L (-2-2) -1.1 mmol/L (-2-2) -1.6 mmol/L (-2-2) Oxygen Delivery Device VENTILATOR VENTILATOR VENTILATOR VENTILATOR Blood Gas Ventilator Setting APRV APRV SEE COMMENT SEE COMMENT Blood Gas Inspired Oxygen 60 % 75 % 50 % 50 % Test 09/14/17 04:59 Blood Gas Puncture Site RT BRACHIAL Blood Gas Patient Temperature 98.6 Blood Gas HCO3 24 mmol/L (22-26) Blood Gas Base Excess -1.2 mmol/L (-2-2) Blood Gas Oxygen Saturation 95 % (90-100) Arterial Blood pH 7.31 (7.380-7.420) Arterial Blood Partial Pressure CO2 50 mmHg (38-42) Arterial Blood Partial Pressure O2 107 mmHg (61-120) Arterial Blood Oxygen Content 11.1 Vol % (12.0-20.0) Arterial Blood Carboxyhemoglobin 1.0 % (0-4) Arterial Blood Methemoglobin 1.4 % (0-2) Blood Gas Hemoglobin 8.1 G/DL (12.0-16.0) Oxygen Delivery Device VENTILATOR Blood Gas Ventilator Setting SEE COMMENT Blood Gas Inspired Oxygen 45 % Objective Remarks Infusions: d/c Vasopressin at 0.04 international units 09/13 GENERAL: Obese, edematous female sedated and intubated. SKIN: Warm and dry. HEAD: Normocephalic. EYES: No scleral icterus. No injection or drainage. NECK: Supple, trachea midline. Orotracheally intubated CARDIOVASCULAR: S1-S2 normal no murmurs. Heart sounds distant. + JVD. RESPIRATORY: Breath sounds equal bilaterally, with bilateral crackles. Decreased bases. GASTROINTESTINAL: Abdomen soft, tender, distended. Morbidly obese. Bilateral ROSSI drains in place, serous. Trochar incisions sites CDI MUSCULOSKELETAL: No cyanosis, or edema. Well perfused. NEURO EXAM: Sedated and intubated, not following commands but withdraws all extremities. Pupils are round, reactive to light. A/P Assessment and Plan A/P: NEURO: Seizure disorder - Currently off all sedation - Keppra IV. Check EEG RESP: Acute hypoxemic respiratory failure ARDS HCAP with E Coli - Continue mechanical ventilation/APRV mode, keep peak pressure <35 considering morbid obesity, Wean FiO2 and PEEP keeping SaO2> 90% - No weaning until hemodynamically stable, CXR improved - ABG, CXR daily, Vent bundle - DuoNeb every 6 hours scheduled and when necessary - Diuresis as below - Bilateral pulmonary opacities may be fluid overload versus acute lung injury/ ARDS CVS: Septic shock-resolving Lactic acidosis - Right femoral arterial line placed and flow track monitoring initiated 09/09- Art line dislodged 09/11 - no need to replace art line as patient is now off all pressors - s/p Aggressive IV fluid resuscitation, postop received 9 L of normal saline, 2 units of PRBC - IV bumex 1 mg IV q8, with additional 1 mg IV now - Hydrocortisone stress dose-start weaning 09/13 GI: Small bowel ischemia/Perforation Peritonitis - POD # 7 S/P Laparoscopic SBR for gangrenous small bowel - Post op surgical management per Dr. Epstein general surgery - NPO, IV Protonix. Started TPN 09/10/17 : Acute kidney failure - ATN most likely from severe septic shock - Continue Bumex as above - Maintain Bedolla for accurate intake output HEME: Anemia - s/p 2 units of PRBC, transfuse to keep Hb >7.5 - Monitor H&H - Drop in platelet most likely sepsis, monitor ID: Septic shock Peritonitis HCAP with E Coli - Broad-spectrum antibiotic - Levaquin, Flagyl, Diflucan, vancomycin, cefepime. DC Levaquin today - Sputum culture E Coli - Blood cultures, urine culture follow up - ID following ENDO: Diabetes mellitus Hypocalcemia - Insulin sliding scale, and IV insulin with TPN - Electrolyte replacement per protocol - Start levemir bid DVT GI prophylaxis - Teds SCDs - Pharmacological DVT prophylaxis Lovenox 40 mg subcutaneous every 12- reduce to 40 qd due to worsening creatinine - Protonix D/W Dr. Hernandez, and updated sister at bedside Overall impression: Remains critically ill. There is improvement in septic shock, but persistent ARDS, severe hypoxemia and worsening acute kidney injury. Critical care 44 mins Jose Landin MD Sep 14, 2017 06:39
[2017-09-14 07:40] LABS: BANDS 16 % (0-6); METAMYELOCYTES 1 % (0-1); MYELOCYTES 3 % (0-0); NEUTROPHIL # MANUAL DIFF 8.3 TH/MM3 (1.8-7.7); PLATELET ESTIMATE SMEAR LOW (NORMAL); PLATELET MORPHOLOGY NORMAL (NORMAL); POLYS (SEG NEUTROPHILS) 65 % (16-70); SCAN/DIFF FINAL DIFF MANUAL; WBC DIFF SAMPLE 100
[2017-09-14] MEDS: POTASSIUM CHLOR 40 MEQ PREMIX 100 ML IV ONE ×2 (08:15→08:36)
--- NOTE | 2017-09-14 08:29 | RADRPT ---
EXAM DATE/TIME: 09/14/2017 08:04 [facility] COMPARISON: CHEST SINGLE AP, September 13, 2017, 3:16. INDICATIONS : Hypoxemia. MEDICAL HISTORY : Rheumatoid arthritis. SURGICAL HISTORY : Gastric sleeve. ENCOUNTER: Subsequent ACUITY: 2 weeks PAIN SCORE: Non-responsive. LOCATION: Bilateral chest FINDINGS: A single portable frontal view the chest shows an endotracheal tube with the tip 2 cm proximal to the jb. Right-sided central line and nasogastric tube noted. Diffuse bilateral pulmonary infiltrates have shown no change. No effusions. Heart is normal in size. No pneumothorax. CONCLUSION: Unchanged diffuse bilateral pulmonary infiltrates. Tae Archuleta Jr., MD on September 14, 2017 at 8:27 Board Certified Radiologist. This report was verified electronically.
[2017-09-14] MEDS: CEFEPIME INJ 2,000 MG in SODIUM CHLORIDE 0.9% INJ 100 ML IV SCH ×2 (09:15→20:42)
[2017-09-14] MEDS: INSULIN DETEMIR 100 UNITS/ML VIAL SQ SCH ×2 (09:15→20:45)
[2017-09-14] MEDS: SODIUM CHLORIDE 0.9% FLUSH 10 ML FLUSH IV FLUSH SCH ×2 (09:15→20:45)
[2017-09-14] MEDS: PANTOPRAZOLE SODIUM 40 MG VIAL IV PUSH SCH (09:15)
[2017-09-14] MEDS: CHLORHEXIDINE 0.12% (ORAL KIT) 15 ML CUP MT SCH ×2 (09:15→20:09)
[2017-09-14] MEDS: levETIRAcetam INJ 500 MG in SODIUM CHLORIDE 0.9% INJ 100 ML IV SCH ×2 (10:08→20:44)
--- NOTE | 2017-09-14 13:01 | HHI.IDPN ---
Note Infectious Disease Note Patient is on the vent. Off sedation. remains unresponsive. D/W RN. Withdraws extremities. Afebrile. Good diuresis. 1700cc this am. Presented to the emergency department on September 07 and was diagnosed with small bowel obstruction. She was taken to surgery and was found to have necrosed, perforated small bowel and she underwent small bowel resection. The patient previously had elective gastric sleeve on 08/22/2017. After that she was having nausea and vomiting and then difficulty passing stools. During the surgical procedure the patient had some purulent material within the abdomen. PAST MEDICAL HISTORY 1. Rheumatoid arthritis 2. Hypothyroidism 3. Gout 4. Depression 5. Seizure disorder 6. Attention deficit disorder 7. Cholecystectomy 8. Tonsillectomy 9. Ankle arthroplasty 10. Gastric sleeve. 08/22/17. ALLERGIES PROPOXYPHENE DARVOCET ADHESIVE TAPES ANTIBIOTICS 1. Cefepime. 2. Fluconazole. 3. Metronidazole. SOCIAL HISTORY The patient is . Rare alcohol use noted. No tobacco. OBJECTIVE: Vital Signs Date Time Temp Pulse Resp B/P (MAP) Pulse Ox O2 Delivery O2 Flow Rate FiO2 09/13/17 07:54 95 50 09/13/17 06:00 96 09/13/17 04:49 96 Ventilator 50 09/13/17 04:24 97 50 09/13/17 04:00 50 09/13/17 04:00 98.1 96 22 143/75 (97) 96 09/13/17 04:00 96 09/13/17 03:40 50 09/13/17 03:38 92 Ventilator 40 09/13/17 02:00 96 09/13/17 00:00 96 09/13/17 00:00 98.0 96 22 127/65 (85) 95 09/13/17 00:00 40 09/12/17 22:00 96 09/12/17 20:27 98 40 09/12/17 20:00 96 09/12/17 20:00 40 09/12/17 20:00 97.8 96 22 132/71 (91) 98 09/12/17 18:00 96 09/12/17 16:04 96 40 09/12/17 16:00 40 09/12/17 16:00 96 09/12/17 16:00 97.6 96 22 140/79 (99) 95 09/12/17 14:00 96 09/12/17 12:00 98.1 100 22 148/80 (102) 97 09/12/17 12:00 100 09/12/17 12:00 40 09/12/17 11:31 97 40 Laboratory Tests Test 09/12/17 13:23 09/13/17 03:48 09/14/17 04:45 White Blood Count 7.9 TH/MM3 8.1 TH/MM3 9.8 TH/MM3 Red Blood Count 2.53 MIL/MM3 2.61 MIL/MM3 2.73 MIL/MM3 Hemoglobin 7.8 GM/DL 7.6 GM/DL 8.1 GM/DL Hematocrit 22.8 % 23.4 % 24.7 % Mean Corpuscular Volume 90.2 FL 89.8 FL 90.5 FL Mean Corpuscular Hemoglobin 30.9 PG 29.2 PG 29.5 PG Mean Corpuscular Hemoglobin Concent 34.3 % 32.5 % 32.6 % Red Cell Distribution Width 17.5 % 17.2 % 17.2 % Platelet Count 116 TH/MM3 118 TH/MM3 110 TH/MM3 Mean Platelet Volume 7.4 FL 7.1 FL 7.9 FL Neutrophils (%) (Auto) 90.6 % 88.7 % 88.6 % Lymphocytes (%) (Auto) 4.9 % 5.6 % 5.9 % Monocytes (%) (Auto) 4.3 % 5.1 % 3.4 % Eosinophils (%) (Auto) 0.1 % 0.5 % 1.9 % Basophils (%) (Auto) 0.1 % 0.1 % 0.2 % Neutrophils # (Auto) 7.1 TH/MM3 7.2 TH/MM3 8.7 TH/MM3 Lymphocytes # (Auto) 0.4 TH/MM3 0.5 TH/MM3 0.6 TH/MM3 Monocytes # (Auto) 0.3 TH/MM3 0.4 TH/MM3 0.3 TH/MM3 Eosinophils # (Auto) 0.0 TH/MM3 0.0 TH/MM3 0.2 TH/MM3 Basophils # (Auto) 0.0 TH/MM3 0.0 TH/MM3 0.0 TH/MM3 CBC Comment AUTO DIFF AUTO DIFF AUTO DIFF Differential Total Cells Counted 100 100 100 Neutrophils % (Manual) 74 % 78 % 65 % Band Neutrophils % 14 % 6 % 16 % Lymphocytes % 8 % 8 % 11 % Monocytes % 3 % 5 % 4 % Neutrophils # (Manual) 7.0 TH/MM3 7.0 TH/MM3 8.3 TH/MM3 Myelocytes 1 % 3 % 3 % Nucleated Red Blood Cells 1 /100 WBC 1 /100 WBC Differential Comment FINAL DIFF MANUAL FINAL DIFF MANUAL FINAL DIFF MANUAL Platelet Estimate LOW LOW LOW Platelet Morphology Comment NORMAL NORMAL NORMAL Red Cell Morphology Comment NORMAL Metamyelocytes 1 % Laboratory Tests Test 09/12/17 13:23 09/12/17 22:10 09/13/17 03:48 09/14/17 04:45 Blood Urea Nitrogen 34 MG/DL 40 MG/DL 54 MG/DL Creatinine 1.82 MG/DL 2.09 MG/DL 2.33 MG/DL Random Glucose 232 MG/DL 232 MG/DL 195 MG/DL Total Protein 5.4 GM/DL 5.4 GM/DL Albumin 2.8 GM/DL 2.9 GM/DL Calcium Level 7.6 MG/DL 7.7 MG/DL 8.1 MG/DL Magnesium Level 1.7 MG/DL 1.8 MG/DL Alkaline Phosphatase 301 U/L 380 U/L Aspartate Amino Transf (AST/SGOT) 36 U/L 42 U/L Alanine Aminotransferase (ALT/SGPT) 28 U/L 28 U/L Total Bilirubin 1.0 MG/DL 1.1 MG/DL Sodium Level 136 MEQ/L 138 MEQ/L 141 MEQ/L Potassium Level 3.3 MEQ/L 3.4 MEQ/L 3.6 MEQ/L 3.3 MEQ/L Chloride Level 105 MEQ/L 107 MEQ/L 105 MEQ/L Carbon Dioxide Level 21.4 MEQ/L 22.8 MEQ/L 25.1 MEQ/L Anion Gap 10 MEQ/L 8 MEQ/L 11 MEQ/L Estimat Glomerular Filtration Rate 28 ML/MIN 24 ML/MIN 21 ML/MIN Test 09/14/17 10:25 Ammonia 43 MCMOL/L Microbiology Date/Time Source Procedure Growth Status 09/10/17 08:30 Blood Peripheral Aerobic Blood Culture - Preliminary NO GROWTH IN 2 DAYS Resulted 09/10/17 08:30 Blood Peripheral Anaerobic Blood Culture - Preliminary NO GROWTH IN 2 DAYS Resulted IMAGING: Chest X-Ray 09/14/17 0800 Signed Impressions: Service Date/Time: August 08:04 - CONCLUSION: Unchanged diffuse bilateral pulmonary infiltrates. Tae Archuleta Jr., MD Chest X-Ray 09/13/17 0600 Signed Impressions: Service Date/Time: Wednesday, September 13, 2017 03:16 - CONCLUSION: Diffuse consolidation likely related to diffuse processes such as edema or diffuse infection. Damian Vang MD Chest X-Ray 09/12/17 0600 Signed Impressions: Service Date/Time: Tuesday, September 12, 2017 05:09 - CONCLUSION: Diffuse pulmonary consolidation likely representing diffuse processes such as edema or diffuse infection/inflammatory change. Damian Vang MD Chest X-Ray 09/10/17 06 Signed Impressions: Service Date/Time: Sunday, September 10, 2017 05:28 - CONCLUSION: Suboptimal Midinspiratory mildly rotated study with increased opacity greatest in the left lung. This could indicate infiltrate or could be partially artifactual and due to the Midinspiratory view and rotation. Yuri Holt MD Abdomen Fluoroscopy 09/08/17 0000 Signed Impressions: Service Date/Time: Friday, September 08, 2017 12:04 - CONCLUSION: Uncomplicated nasogastric tube placement as above. Tae Archuleta Jr., MD Abdomen/Pelvis CT 09/07/17 0000 Signed Impressions: Service Date/Time: August 12:20 - CONCLUSION: 1. Small bowel obstruction with transition point in the lower abdomen adjacent to an area of indurated mesentery. 2. Marked dilation of the intrahepatic biliary system , up to 2.2 cm, and some mild distention of the intrahepatic biliary system. Differential considerations include a distal biliary obstruction and reservoir effect from prior cholecystectomy. Tae Roblero MD PHYSICAL EXAM: GENERAL: Patient is on the vent. Unresponsive. HEENT: Head atraumatic, No icterus. Oropharynx intubated. NECK: Supple. No adenopathy. LUNGS: Bilateral rales. CARDIAC: Regular rate and rhythm. no murmurs, rubs or gallops. ABDOMEN: Obese. Soft. Unable to appreciate tenderness. Arnie drains has mateo clear drainage. EXTREMITIES: No clubbing, cyanosis. Trace edema at the hands and feet. SKIN: No rash. Warm and moist. NEURO: unable to assess. IMPRESSION 1. Septic shock. 2. Post exploratory laparotomy and small bowel resection along with lysis of adhesions for small bowel perforation. 3. Peritonitis due to due to small bowel perforation. 4. Acute respiratory failure. 5. VAP gram negative. E. coli. 6. Acute kidney disease. ? sepsis related. ? medication. RECOMMENDATIONS 1. Continue Cefepime 2. Continue Metronidazole 3. Continue Fluconazole 4. Monitor blood culture. 5. Monitor abdominal drainage. 6. Avoid nephrotoxic meds. 7. Follow clinical status. I will be off 09/15 - 09/18 - Other ID MD's covering. Jus Enriquez MD Sep 14, 2017 13:01
--- NOTE | 2017-09-14 14:55 | HHI.NPPN ---
Subjective History of Present Illness Patient is a 61-year-old morbidly obese female who underwent gastric sleeve operation earlier this month on 08/23/17, patient has obstructive symptoms she was admitted and then as been doing well until Thanks[place] when she developed the abdominal pain nausea vomiting and patient has been brought her back to the emergency. She had diagnoses of peritonitis, bowel obstruction, septic shock. Underwent surgical bowel resection due to perforation currently intubated Objective Data Data Vital Signs Date Time Temp Pulse Resp B/P (MAP) Pulse Ox O2 Delivery O2 Flow Rate FiO2 09/14/17 14:00 101 09/14/17 12:00 50 09/14/17 12:00 97.8 102 25 133/69 (90) 96 09/14/17 12:00 103 09/14/17 11:33 96 40 09/14/17 10:00 96 09/14/17 08:22 97 45 09/14/17 08:00 50 09/14/17 08:00 104 09/14/17 08:00 97.8 102 25 133/69 (90) 96 09/14/17 06:00 104 09/14/17 04:21 100 45 09/14/17 04:00 98.6 108 22 177/93 (121) 100 09/14/17 04:00 108 09/14/17 04:00 50 09/14/17 02:00 100 09/14/17 00:09 100 50 09/14/17 00:00 98 09/14/17 00:00 50 09/14/17 00:00 98.0 98 20 135/65 (88) 100 09/13/17 22:00 102 09/13/17 20:07 97 50 09/13/17 20:00 98.5 96 17 122/69 (86) 97 09/13/17 20:00 50 09/13/17 20:00 96 09/13/17 18:00 100 09/13/17 16:20 95 60 09/13/17 16:00 98.8 95 24 127/69 (88) 95 09/13/17 16:00 107 09/13/17 16:00 50 -: 09/14/17 0445 09/14/17 0445 Physical Exam General Appearance: Well Developed, Well Nourished Neck Neck Exam: Neck Supple Pulmonary Resp Exam: Decreased Bases Cardiology CV Exam: Regular Gastrointestinal/Abdomen GI Exam: Soft, Bowel Sounds Absent Extremeties Extremities Exam: Pitting Edema, Dependent Edema Assessment/Plan Problem List: (1) Acute renal failure ICD Codes: N17.9 - Acute kidney failure, unspecified Plan: Patient was in septic shock and now recovering patient is responding to Lasix 40 mg every 12 hourly for diuresis after volume resuscitation on Lasix switch to Lasix at 10 mg/hr infusion as massive edema, consider Dialysis d/w sister uop 1.7 L today Cr higher 2.3 BMP monitored Avoid nephrotoxic medications K Low was given earlier Recheck and replace in the evening (2) Small bowel obstruction ICD Codes: K56.609 - Unspecified intestinal obstruction, unspecified as to partial versus complete obstruction Status: Acute Plan: Status post surgical intervention (3) Ileus following gastrointestinal surgery ICD Codes: K91.30 - Postprocedural intestinal obstruction, unspecified as to partial versus complete Plan: Continue to monitor Annita Bond MD Sep 14, 2017 14:55
[2017-09-14 16:52] LABS: BLOOD GAS BASE EXCESS 2.4 mmol/L (-2-2); BLOOD GAS CARBOXYHEMOGLOBIN 1.2 % (0-4); BLOOD GAS HCO3 27 mmol/L (22-26); BLOOD GAS METHEMOGLOBIN 1.5 % (0-2); BLOOD GAS O2 HGB SATURATION 96 % (90-100); BLOOD GAS PCO2 47 mmHg (38-42); BLOOD GAS PO2 139 mmHg (61-120); BLOOD GAS TOTAL HGB 8.7 G/DL (12.0-16.0); CRITICAL VALUE NO; DRAW SITE RT RADIAL; FIO2 40 %; NUMBER OF ARTERIAL PUNCTURES 1; OXYGEN DEVICE VENTILATOR; STAT NO; TEMP CORR TO 98.6; ULNAR PULSE PRESENT; VENT SETTINGS APRV/BI-LEVEL
[2017-09-14] MEDS ORDERED: FUROSEMIDE 40 MG/4 ML VIAL IV PUSH SCH (17:00)
--- NOTE | 2017-09-14 17:01 | HHI.PR ---
Subjective Subjective Notes Remains vented and minimally responsive O2 requirements improving Renal function worsening Objective Vitals/I&O Vital Signs Date Time Temp Pulse Resp B/P (MAP) Pulse Ox O2 Delivery O2 Flow Rate FiO2 09/14/17 16:01 95 40 09/14/17 16:00 100 09/14/17 12:00 97.8 25 133/69 (90) 09/13/17 04:49 Ventilator Labs Laboratory Tests Test 09/13/17 21:59 09/13/17 23:30 09/14/17 04:45 09/14/17 04:59 Blood Gas Puncture Site KIANNA HUTCHISON RT BRACHIAL Blood Gas Patient Temperature 37.0 98.6 98.6 Venous Blood pH 7.27 7.31 Venous Blood Partial Pressure CO2 56 49 Venous Blood Partial Pressure O2 52 55 Venous Blood HCO3 25 24 Venous Blood Oxygen Saturation 82 86 Venous Blood Oxygen Content 9.3 9.2 Venous Blood Base Excess -1.1 -1.6 Oxygen Delivery Device VENTILATOR VENTILATOR VENTILATOR Blood Gas Ventilator Setting SEE COMMENT SEE COMMENT SEE COMMENT Blood Gas Inspired Oxygen 50 50 45 White Blood Count 9.8 Red Blood Count 2.73 Hemoglobin 8.1 Hematocrit 24.7 Mean Corpuscular Volume 90.5 Mean Corpuscular Hemoglobin 29.5 Mean Corpuscular Hemoglobin Concent 32.6 Red Cell Distribution Width 17.2 Platelet Count 110 Mean Platelet Volume 7.9 Neutrophils (%) (Auto) 88.6 Lymphocytes (%) (Auto) 5.9 Monocytes (%) (Auto) 3.4 Eosinophils (%) (Auto) 1.9 Basophils (%) (Auto) 0.2 Neutrophils # (Auto) 8.7 Lymphocytes # (Auto) 0.6 Monocytes # (Auto) 0.3 Eosinophils # (Auto) 0.2 Basophils # (Auto) 0.0 CBC Comment AUTO DIFF Differential Total Cells Counted 100 Neutrophils % (Manual) 65 Band Neutrophils % 16 Lymphocytes % 11 Monocytes % 4 Neutrophils # (Manual) 8.3 Metamyelocytes 1 Myelocytes 3 Differential Comment FINAL DIFF MANUAL Platelet Estimate LOW Platelet Morphology Comment NORMAL Blood Urea Nitrogen 54 Creatinine 2.33 Random Glucose 195 Calcium Level 8.1 Sodium Level 141 Potassium Level 3.3 Chloride Level 105 Carbon Dioxide Level 25.1 Anion Gap 11 Estimat Glomerular Filtration Rate 21 Blood Gas HCO3 24 Blood Gas Base Excess -1.2 Blood Gas Oxygen Saturation 95 Arterial Blood pH 7.31 Arterial Blood Partial Pressure CO2 50 Arterial Blood Partial Pressure O2 107 Arterial Blood Oxygen Content 11.1 Arterial Blood Carboxyhemoglobin 1.0 Arterial Blood Methemoglobin 1.4 Blood Gas Hemoglobin 8.1 Test 09/14/17 10:25 09/14/17 16:00 09/14/17 16:42 Ammonia 43 Potassium Level 3.5 Blood Gas Puncture Site RT RADIAL Blood Gas Patient Temperature 98.6 Blood Gas HCO3 27 Blood Gas Base Excess 2.4 Blood Gas Oxygen Saturation 96 Arterial Blood pH 7.38 Arterial Blood Partial Pressure CO2 47 Arterial Blood Partial Pressure O2 139 Arterial Blood Oxygen Content 12.0 Arterial Blood Carboxyhemoglobin 1.2 Arterial Blood Methemoglobin 1.5 Blood Gas Hemoglobin 8.7 Oxygen Delivery Device VENTILATOR Blood Gas Ventilator Setting APRV/BI-LEVEL Blood Gas Inspired Oxygen 40 Date/Time Source Procedure Growth Status 09/10/17 08:30 Blood Peripheral Aerobic Blood Culture - Preliminary NO GROWTH IN 4 DAYS Resulted 09/10/17 08:30 Blood Peripheral Anaerobic Blood Culture - Preliminary NO GROWTH IN 4 DAYS Resulted 09/08/17 21:10 Sputum Oral Tracheal Aspirate Gram Stain - Final Complete 09/08/17 21:10 Sputum Culture - Final Escherichia Coli Complete 09/09/17 09:45 Urine Clean Catch Urine Culture - Final NO GROWTH IN 48 HOURS. Complete Radiology Last 24 hours Impressions Chest X-Ray 09/14/17 0800 Signed Impressions: Service Date/Time: August 08:04 - CONCLUSION: Unchanged diffuse bilateral pulmonary infiltrates. Tae Archuleta Jr., MD Last Impressions Chest X-Ray 09/13/17 0600 Signed Impressions: Service Date/Time: Wednesday, September 13, 2017 03:16 - CONCLUSION: Diffuse consolidation likely related to diffuse processes such as edema or diffuse infection. Damian Vang MD Abdomen Fluoroscopy 09/08/17 0000 Signed Impressions: Service Date/Time: Friday, September 08, 2017 12:04 - CONCLUSION: Uncomplicated nasogastric tube placement as above. Tae Archuleta Jr., MD Abdomen/Pelvis CT 09/07/17 0000 Signed Impressions: Service Date/Time: August 12:20 - CONCLUSION: 1. Small bowel obstruction with transition point in the lower abdomen adjacent to an area of indurated mesentery. 2. Marked dilation of the intrahepatic biliary system , up to 2.2 cm, and some mild distention of the intrahepatic biliary system. Differential considerations include a distal biliary obstruction and reservoir effect from prior cholecystectomy. Tae Roblero MD Cardiovascular: Regular Lungs: Rhonchi Abdomen: Other (rare bowel sounds ) Wound Wound : Wound Location: Abdomen Appearance: Induration Drainage: Clear Dressing: Dry (surgical insicion to RLQ with charly intake. Moderate amount of serous drainage with some slight induration) A/P Assessment and Plan 61yo F with small bowel perforation and peritonitis -Worsening kidney function, appreciate input from nephrology as they may consider hemodialysis -Continue with appropriate weaning of vent support -Will continue with TPN for now until more bowel activity returns Flower Gomez Sep 14, 2017 17:01
[2017-09-14] MEDS: POTASSIUM CHLOR 20 MEQ PREMIX 100 ML IV SCH ×2 (18:14→20:43)
[2017-09-14] MEDS: MULTIVITAMIN INJ 10 ML, FOLIC ACID INJ 1 MG, INSULIN HUMAN REGULAR INJ 40 UNITS in AMIN... IV-CENTRAL SCH (20:42)
[2017-09-15] VITALS (21 sets, daily range): BP systolic 116–154; BP diastolic 57–73; PULSE 88–104; RESP 12–28; TEMP 98.2–99.3; O2SAT 96–100
[2017-09-15] MEDS: INSULIN ASPART SUPPLEMENTAL SCALE SQ SCH ×4 (00:16→18:18)
[2017-09-15] MEDS: ALBUMIN 25% INJ 100 ML IV SCH ×3 (00:16→16:53)
[2017-09-15] MEDS: FUROSEMIDE INJ 100 MG in SODIUM CHLORIDE 0.9% INJ 90 ML IV SCH ×3 (01:24→22:25)
[2017-09-15] MEDS: RESP: ALBUTEROL 2.5 MG/IPRATROPIUM 0.5 MG NEB (SCH) NEB ×4 (03:53→21:13)
[2017-09-15] MEDS: metroNIDAZOLE 500 MG INJ 100 ML IV SCH ×4 (04:09→20:26)
[2017-09-15 04:24] LABS: WHITE BLOOD COUNT 9.1 TH/MM3 (4.0-11.0)
[2017-09-15 04:25] LABS: AUTOMATED NEUTROPHIL # 8.4 TH/MM3 (1.8-7.7); BASOPHIL % 0.2 % (0.0-2.0); EOSINOPHIL % 0.1 % (0.0-4.0); HEMATOCRIT 21.5 % (35.0-46.0); LYMPH % 5.1 % (9.0-44.0); LYMPHOCYTE # 0.5 TH/MM3 (1.0-4.8); MEAN CELL VOLUME 89.2 FL (80.0-100.0); MEAN CORPUSCULAR HEMOGLOBIN 29.2 PG (27.0-34.0); MEAN CORPUSCULAR HGB CONC 32.7 % (32.0-36.0); MONO % 3.2 % (0.0-8.0); NEUT % 91.4 % (16.0-70.0); PLATELET COUNT 112 TH/MM3 (150-450); RED BLOOD COUNT 2.41 MIL/MM3 (4.00-5.30); RED CELL DISTRIBUTION WIDTH 16.8 % (11.6-17.2)
[2017-09-15 04:28] LABS: HEMO FLAGS AUTO DIFF
[2017-09-15 04:44] LABS: BLOOD GAS BASE EXCESS 3.9 mmol/L (-2-2); BLOOD GAS HCO3 28 mmol/L (22-26); BLOOD GAS METHEMOGLOBIN 1.4 % (0-2); BLOOD GAS O2 HGB SATURATION 97 % (90-100); BLOOD GAS OXYGEN CONTENT 12.4 Vol % (12.0-20.0); BLOOD GAS PCO2 45 mmHg (38-42); BLOOD GAS PO2 170 mmHg (61-120); BLOOD GAS TOTAL HGB 8.8 G/DL (12.0-16.0); TEMP CORR TO 98.6
[2017-09-15 04:45] LABS: CRITICAL VALUE NO; OXYGEN DEVICE VENTILATOR
[2017-09-15 04:46] LABS: DRAW SITE LT RADIAL; FIO2 40 %; NUMBER OF ARTERIAL PUNCTURES 2; STAT NO; ULNAR PULSE PRESENT
--- NOTE | 2017-09-15 04:52 | RADRPT ---
EXAM DATE/TIME: 09/15/2017 04:17 [facility] COMPARISON: CHEST SINGLE AP, September 14, 2017, 8:04. INDICATIONS : Respiratory disease. MEDICAL HISTORY : Rheumatoid arthritis SURGICAL HISTORY : Gastric sleeve. ENCOUNTER: Subsequent ACUITY: 2 weeks PAIN SCORE: Non-responsive. LOCATION: Bilateral FINDINGS: Portable AP views of the chest demonstrate a normal-sized cardiac silhouette. Multiple lines overlie the chest. ETT, NG tube, and right IJ line remain present. There is bilateral mid and lower lung zone air space opacity. No pneumothorax is visualized. CONCLUSION: Stable chest x-ray with bilateral mid and lower lung zone airspace opacities. Damian Bedolla MD on September 15, 2017 at 4:49 Board Certified Radiologist. This report was verified electronically.
[2017-09-15 04:56] LABS: BICARBONATE 29.2 MEQ/L (21.0-32.0); POTASSIUM 3.4 MEQ/L (3.5-5.1)
[2017-09-15 04:59] LABS: BANDS 5 % (0-6); METAMYELOCYTES 1 % (0-1); MYELOCYTES 1 % (0-0); NEUTROPHIL # MANUAL DIFF 8.6 TH/MM3 (1.8-7.7); POLYS (SEG NEUTROPHILS) 87 % (16-70); PROMYELOCYTES 1 % (0-0); SCAN/DIFF FINAL DIFF MANUAL; WBC DIFF SAMPLE 100
[2017-09-15] MEDS: LEVOTHYROXINE SODIUM 100 MCG VIAL IV PUSH SCH (06:23)
[2017-09-15] MEDS: HYDROCORTISONE SOD SUCCINATE 100 MG VIAL IV PUSH SCH ×3 (06:23→21:29)
[2017-09-15] MEDS: ENOXAPARIN SODIUM 30 MG/0.3 ML SYRINGE SQ SCH (06:23)
--- NOTE | 2017-09-15 07:41 | HHI.CCPN ---
Subjective Remarks/Hospital Course 61-year-old morbidly obese female presents, patient of Dr. Epstein, status post gastric sleeve 08-22-17 now presents with nonbloody emesis and unable to have a bowel movement for a couple days. She states to get that bowel movement she had a use a glycerin suppository and it was just loose. He was taken emergently to operating room and was found to have a small bowel ischemia. She underwent laparoscopic small bowel resection by Dr. Epstein and is postoperatively admitted to critical care unit SUBJ 09/09/17: Remains very critically ill. Profound septic shock requiring Levophed at 40 mcg/m, Des-Synephrine at 500 mcg/m, vasopressin at 0.04 international units, and to be demand 5 g per KG per minute. Urine output 150 mL overnight. Maintaining oxygen saturation. A.m. labs are pending at this time. Surprisingly patient is still mentating able to communicate. Remains on IV fentanyl infusion for pain control. Operative report is pending at this time. Received total of 9 L of crystalloid postoperatively. Receiving 2 units of PRBC. I will replace calcium. Lactic acid 3.5 at 4 AM 09/10: Critically ill but stable. Levophed down to 12 mcg/min, vasopressin at 0.04 IU. Uo 650 ml in 24 hours, bilateral abdominal drains with 1 L output. Right drain had greenish output overnight and now serosanguineous. D/ W Dr Epstein- he confirms perforation and gross contamination 09/11: Remains critically. FiO2 requirement up to 60%, I have increased PEEP to 10. CXR consistent with ARDS versus fluid overload. Creatinine increased to 1.24. Urine output 600 ml in 24 hours. CVP 18-20. Start IV Bumex 1 mg every 12 hours with additional 1 mg dose now. Levophed at 1 mcg/min, vasopressin at 0.04 IU 09/12: remains critically ill but stable to improving. SBP 130-140 on vasopressin will DC vasopressin. Chest x-ray shows bilateral pulmonary edema, but oxygenation has improved. Stable on 50% and PEEP of 10. Creatinine has worsened to 1.67 but urine output 1.5 L in 24 hours with Bumex. CVP remains about 20. Will increase Bumex to 1 mg every 8 hours and give additional 1 mg now. Closely monitor creatinine. 09/13: Weaning off vasopressors. SHEA persists. CXR with diffuse infiltrates , will switch modes for better recruitment hopefully. 09/14: Gas exchange improved on APRV. Renal function deteriorating. Remains fluid overloaded. 09/15: Gas exchange improved but renal function continues to deteriorate. Continue APRV - bases struggle for domain. Objective Vital Signs Date Time Temp Pulse Resp B/P (MAP) Pulse Ox O2 Delivery O2 Flow Rate FiO2 09/15/17 06:00 92 09/15/17 04:00 40 09/15/17 04:00 98.7 12 116/57 (76) 100 09/14/17 19:00 Mechanical Ventilator Intake and Output 09/15/17 09/15/17 09/16/17 08:00 16:00 00:00 Intake Total 1756 ml Output Total 3375 ml Balance -1619 ml Result Diagram: 09/15/17 0400 09/15/17 0400 Other Results Laboratory Tests Test 09/14/17 16:42 09/15/17 04:30 Blood Gas Puncture Site RT RADIAL LT RADIAL Blood Gas Patient Temperature 98.6 98.6 Blood Gas HCO3 27 mmol/L (22-26) 28 mmol/L (22-26) Blood Gas Base Excess 2.4 mmol/L (-2-2) 3.9 mmol/L (-2-2) Blood Gas Oxygen Saturation 96 % (90-100) 97 % (90-100) Arterial Blood pH 7.38 (7.380-7.420) 7.42 (7.380-7.420) Arterial Blood Partial Pressure CO2 47 mmHg (38-42) 45 mmHg (38-42) Arterial Blood Partial Pressure O2 139 mmHg (61-120) 170 mmHg (61-120) Arterial Blood Oxygen Content 12.0 Vol % (12.0-20.0) 12.4 Vol % (12.0-20.0) Arterial Blood Carboxyhemoglobin 1.2 % (0-4) 1.0 % (0-4) Arterial Blood Methemoglobin 1.5 % (0-2) 1.4 % (0-2) Blood Gas Hemoglobin 8.7 G/DL (12.0-16.0) 8.8 G/DL (12.0-16.0) Oxygen Delivery Device VENTILATOR VENTILATOR Blood Gas Ventilator Setting APRV/BI-LEVEL COMMENT Blood Gas Inspired Oxygen 40 % 40 % Objective Remarks Infusions: Off GENERAL: Obese, edematous female not sedated and intubated. SKIN: Warm and dry. HEAD: Normocephalic. EYES: No scleral icterus. No injection or drainage. NECK: Supple, trachea midline. Orotracheally intubated CARDIOVASCULAR: S1-S2 normal no murmurs. Heart sounds distant. + JVD. RESPIRATORY: Breath sounds equal bilaterally, with bilateral crackles. Decreased bases. GASTROINTESTINAL: Abdomen soft, tender, distended. Morbidly obese. Bilateral ROSSI drains in place, serous. Trochar incisions sites clean. MUSCULOSKELETAL: No cyanosis, or edema. Well perfused. 3+ edema, diffuse. NEURO EXAM: Unresponsive, intubated, not following commands but withdraws all extremities. Pupils are round, reactive to light. A/P Assessment and Plan A/P: NEURO: Seizure disorder - Currently off all sedation - Keppra IV. Check EEG RESP: Acute hypoxemic respiratory failure ARDS HCAP with E Coli - Continue mechanical ventilation/APRV mode, keep peak pressure <35 considering morbid obesity, Wean FiO2 and PEEP keeping SaO2> 90% - No weaning until hemodynamically stable, CXR improved - ABG, CXR daily, Vent bundle - DuoNeb every 6 hours scheduled and when necessary - Diuresis as below - Bilateral pulmonary opacities, fluid overload and acute lung injury/ARDS CVS: Septic shock-resolving Lactic acidosis - Right femoral arterial line placed and flow track monitoring initiated 09/09- Art line dislodged 09/11 - no need to replace art line as patient is now off all pressors - s/p Aggressive IV fluid resuscitation, postop received 9 L of normal saline, 2 units of PRBC - IV bumex 1 mg IV q8, with additional 1 mg IV now - Hydrocortisone stress dose-start weaning 09/13 - now 25 tid. GI: Small bowel ischemia/Perforation Peritonitis - POD # 7 S/P Laparoscopic SBR for gangrenous small bowel - Post op surgical management per Dr. Epstein general surgery - NPO, IV Protonix. Started TPN 09/10/17 : Acute kidney failure - ATN most likely from severe septic shock - Continue Bumex as above - Maintain Bedolla for accurate intake output - Converted to lasix gtt 09/14. HEME: Anemia - s/p 2 units of PRBC, transfuse to keep Hb >7.5 - Monitor H&H - Drop in platelet most likely sepsis, monitor - Transfuse one unit rbc ID: Septic shock Peritonitis HCAP with E Coli - Broad-spectrum antibiotic - Levaquin, Flagyl, Diflucan, vancomycin, cefepime. DC Levaquin today - Sputum culture E Coli - Blood cultures, urine culture follow up - ID following ENDO: Diabetes mellitus Hypocalcemia - Insulin sliding scale, and IV insulin with TPN - Electrolyte replacement per protocol - Continue levemir bid DVT GI prophylaxis - Teds SCDs - Pharmacological DVT prophylaxis Lovenox 40 mg subcutaneous every 12- reduce to 40 qd due to worsening creatinine - Protonix D/W Dr. Hernandez, and updated sister at bedside Overall impression: Remains critically ill with persistent ARDS, severe hypoxemia and worsening acute kidney injury. Glucose control acceptable. Critical care 40 mins Jose Landin MD Sep 15, 2017 07:41
[2017-09-15] MEDS ORDERED: POTASSIUM CHLOR 40 MEQ PREMIX 100 ML IV ONE (08:00)
[2017-09-15] MEDS: CHLORHEXIDINE 0.12% (ORAL KIT) 15 ML CUP MT SCH ×2 (08:09→20:26)
[2017-09-15] MEDS: PANTOPRAZOLE SODIUM 40 MG VIAL IV PUSH SCH (08:09)
[2017-09-15] MEDS: CEFEPIME INJ 2,000 MG in SODIUM CHLORIDE 0.9% INJ 100 ML IV SCH (08:09)
[2017-09-15] MEDS: SODIUM CHLORIDE 0.9% FLUSH 10 ML FLUSH IV FLUSH SCH ×2 (08:09→20:26)
[2017-09-15] MEDS: levETIRAcetam INJ 500 MG in SODIUM CHLORIDE 0.9% INJ 100 ML IV SCH ×2 (08:09→20:26)
[2017-09-15] MEDS: INSULIN DETEMIR 100 UNITS/ML VIAL SQ SCH ×2 (08:39→20:28)
[2017-09-15] MEDS: SODIUM BICARBONATE 8.4% INJ 150 MEQ in WATER STERILE FOR INJ 850 ML IV SCH (11:30)
--- NOTE | 2017-09-15 12:18 | HHI.IDPN ---
Subjective Subjective Remarks ID x cover chart reviewed 61-year-old morbidly obese female presents, patient of Dr. Epstein, status post gastric sleeve 08-22-17 now presented with small bowel ischemia 09/09. She underwent laparoscopic small bowel resection by Dr. Epstein and is postoperatively admitted to critical care unit SHe was initially very critical and unstable Over the next days she improved resp and hemodynamically but her renal fnx cont to decline She grew out E.coli in sputum SHe is afebrille, WBC wnl, but considerable L shift no BM since surgery yet Antibiotics cefepime flagyl Allergies: Coded Allergies: propoxyphene (Unverified Allergy, Intermediate, HALLUCINATIONS, 08/23/17) Uncoded Allergies: ADHESIVE TAPE (Allergy, Intermediate, PULLS SKIN OFF, 09/20/13) DARVOCET-HALLUCINATIONS; (Allergy, Unknown, 06/24/03) Objective . Vital Signs Date Time Temp Pulse Resp B/P (MAP) Pulse Ox O2 Delivery O2 Flow Rate FiO2 09/15/17 11:45 98.9 96 28 152/69 98 09/15/17 11:28 98.8 96 23 129/64 97 09/15/17 10:00 100 09/15/17 09:05 97 35 09/15/17 08:00 91 09/15/17 08:00 40 09/15/17 08:00 98.8 91 22 128/63 (84) 97 09/15/17 07:00 Mechanical Ventilator 40 09/15/17 06:00 92 09/15/17 04:00 92 09/15/17 04:00 40 09/15/17 04:00 98.7 92 12 116/57 (76) 100 09/15/17 03:54 99 40 09/15/17 02:00 102 09/15/17 00:27 97 40 09/15/17 00:00 40 09/15/17 00:00 104 09/15/17 00:00 98.2 104 23 134/70 (91) 97 09/14/17 22:00 110 09/14/17 21:20 100 40 09/14/17 20:00 106 09/14/17 20:00 98.8 106 24 148/84 (105) 96 09/14/17 20:00 40 09/14/17 19:00 106 09/14/17 19:00 Mechanical Ventilator 40 09/14/17 18:00 106 09/14/17 16:01 95 40 09/14/17 16:00 50 09/14/17 16:00 98.1 100 21 136/71 (92) 96 09/14/17 16:00 100 09/14/17 14:00 101 . Laboratory Tests Test 09/14/17 04:45 09/15/17 04:00 White Blood Count 9.8 TH/MM3 9.1 TH/MM3 Red Blood Count 2.73 MIL/MM3 2.41 MIL/MM3 Hemoglobin 8.1 GM/DL 7.0 GM/DL Hematocrit 24.7 % 21.5 % Mean Corpuscular Volume 90.5 FL 89.2 FL Mean Corpuscular Hemoglobin 29.5 PG 29.2 PG Mean Corpuscular Hemoglobin Concent 32.6 % 32.7 % Red Cell Distribution Width 17.2 % 16.8 % Platelet Count 110 TH/MM3 112 TH/MM3 Mean Platelet Volume 7.9 FL 8.5 FL Neutrophils (%) (Auto) 88.6 % 91.4 % Lymphocytes (%) (Auto) 5.9 % 5.1 % Monocytes (%) (Auto) 3.4 % 3.2 % Eosinophils (%) (Auto) 1.9 % 0.1 % Basophils (%) (Auto) 0.2 % 0.2 % Neutrophils # (Auto) 8.7 TH/MM3 8.4 TH/MM3 Lymphocytes # (Auto) 0.6 TH/MM3 0.5 TH/MM3 Monocytes # (Auto) 0.3 TH/MM3 0.3 TH/MM3 Eosinophils # (Auto) 0.2 TH/MM3 0.0 TH/MM3 Basophils # (Auto) 0.0 TH/MM3 0.0 TH/MM3 CBC Comment AUTO DIFF AUTO DIFF Differential Total Cells Counted 100 100 Neutrophils % (Manual) 65 % 87 % Band Neutrophils % 16 % 5 % Lymphocytes % 11 % 4 % Monocytes % 4 % 1 % Neutrophils # (Manual) 8.3 TH/MM3 8.6 TH/MM3 Metamyelocytes 1 % 1 % Myelocytes 3 % 1 % Differential Comment FINAL DIFF MANUAL FINAL DIFF MANUAL Platelet Estimate LOW Platelet Morphology Comment NORMAL Promyelocytes 1 % Laboratory Tests Test 09/14/17 04:45 09/14/17 10:25 09/14/17 16:00 09/15/17 04:00 Blood Urea Nitrogen 54 MG/DL 72 MG/DL Creatinine 2.33 MG/DL 2.71 MG/DL Random Glucose 195 MG/DL 230 MG/DL Calcium Level 8.1 MG/DL 8.1 MG/DL Sodium Level 141 MEQ/L 143 MEQ/L Potassium Level 3.3 MEQ/L 3.5 MEQ/L 3.4 MEQ/L Chloride Level 105 MEQ/L 104 MEQ/L Carbon Dioxide Level 25.1 MEQ/L 29.2 MEQ/L Anion Gap 11 MEQ/L 10 MEQ/L Estimat Glomerular Filtration Rate 21 ML/MIN 18 ML/MIN Ammonia 43 MCMOL/L Microbiology Date/Time Source Procedure Growth Status 09/15/17 08:31 Wound Abdomen Gram Stain Pending Received 09/15/17 08:31 Wound Abdomen Wound Culture Pending Received Imaging Last Impressions Chest X-Ray 09/15/17 0000 Signed Impressions: Service Date/Time: Friday, September 15, 2017 04:17 - CONCLUSION: Stable chest x-ray with bilateral mid and lower lung zone airspace opacities. Damian Bedolla MD Abdomen Fluoroscopy 09/08/17 0000 Signed Impressions: Service Date/Time: Friday, September 08, 2017 12:04 - CONCLUSION: Uncomplicated nasogastric tube placement as above. Tae Archuleta Jr., MD Abdomen/Pelvis CT 09/07/17 0000 Signed Impressions: Service Date/Time: August 12:20 - CONCLUSION: 1. Small bowel obstruction with transition point in the lower abdomen adjacent to an area of indurated mesentery. 2. Marked dilation of the intrahepatic biliary system , up to 2.2 cm, and some mild distention of the intrahepatic biliary system. Differential considerations include a distal biliary obstruction and reservoir effect from prior cholecystectomy. Tae Roblero MD Physical Exam CONSTITUTIONAL/GENERAL: This is a morbidly obese patient, in no apparent distress. Intubated, on vent TUBES/LINES/DRAINS: SKIN: No jaundice, rashes, or lesions. Skin temperature appropriate. Not diaphoretic. HEAD: Atraumatic. Normocephalic. EYES: Pupils equal and round and reactive. Extraocular motions intact. No scleral icterus. No injection or drainage. Fundi not examined. ENT: Hearing grossly normal. Nose without bleeding or purulent drainage. Throat without visible erythema, exudates, masses, or lesions. NECK: Trachea midline. Supple, nontender. No palpable thyroid enlargement or nodularity. CARDIOVASCULAR: Regular rate and rhythm without murmurs, gallops, or rubs. No JVD. Peripheral pulses symmetric. RESPIRATORY/CHEST: Symmetric, unlabored respirations. Clear to auscultation. Breath sounds equal bilaterally. No wheezes, rales, or rhonchi. GASTROINTESTINAL: Abdomen soft, non-tender, obese nondistended. JPs [address] with serous driqnage Unable to appreciate hepato-splenomegaly, or palpable masses. No guarding. Bowel sounds are not audible, RN reports some very hypoacctive BS GENITOURINARY: Without palpable bladder distension. Bedolla catheter in place. MUSCULOSKELETAL: Extremities without clubbing, cyanosis, + moderate edema. No joint tenderness or effusion noted. No calf tenderness. No mottling or clubbing. LYMPHATICS: No palpable cervical or supraclavicular adenopathy. NEUROLOGICAL:Sedated lightly Motor and sensory grossly within normal limits. Follows commands. Cognitively sharp. Moves all extremities. PSYCHIATRIC: unable to assess Assessment & Plan Remarks IMPRESSION 1. Septic shock. 2. Post exploratory laparotomy and small bowel resection along with lysis of adhesions for small bowel perforation. 3. Peritonitis due to due to small bowel perforation. 4. Acute respiratory failure. 5. VAP gram negative. E. coli. 6. Acute kidney disease. ? sepsis related. ? medication. ? diuresis - worsening ceratining RECOMMENDATIONS 1. Continue Cefepime 2. Continue Metronidazole 3. Continue Fluconazole 4. Monitor blood culture. 5. Monitor abdominal drainage clx 6. Avoid nephrotoxic meds. 7. chk urine eosinophils Alicja Lin MD Sep 15, 2017 12:18
--- NOTE | 2017-09-15 13:15 | HHI.PR ---
Subjective Subjective Notes Improving ventilation but worsening renal function Remains minimally responsive Objective Vitals/I&O Vital Signs Date Time Temp Pulse Resp B/P (MAP) Pulse Ox O2 Delivery O2 Flow Rate FiO2 09/15/17 12:12 96 35 09/15/17 11:45 98.9 96 28 152/69 09/15/17 07:00 Mechanical Ventilator Labs Laboratory Tests Test 09/14/17 16:00 09/14/17 16:42 09/15/17 04:00 09/15/17 04:30 Potassium Level 3.5 3.4 Blood Gas Puncture Site RT RADIAL LT RADIAL Blood Gas Patient Temperature 98.6 98.6 Blood Gas HCO3 27 28 Blood Gas Base Excess 2.4 3.9 Blood Gas Oxygen Saturation 96 97 Arterial Blood pH 7.38 7.42 Arterial Blood Partial Pressure CO2 47 45 Arterial Blood Partial Pressure O2 139 170 Arterial Blood Oxygen Content 12.0 12.4 Arterial Blood Carboxyhemoglobin 1.2 1.0 Arterial Blood Methemoglobin 1.5 1.4 Blood Gas Hemoglobin 8.7 8.8 Oxygen Delivery Device VENTILATOR VENTILATOR Blood Gas Ventilator Setting APRV/BI-LEVEL COMMENT Blood Gas Inspired Oxygen 40 40 White Blood Count 9.1 Red Blood Count 2.41 Hemoglobin 7.0 Hematocrit 21.5 Mean Corpuscular Volume 89.2 Mean Corpuscular Hemoglobin 29.2 Mean Corpuscular Hemoglobin Concent 32.7 Red Cell Distribution Width 16.8 Platelet Count 112 Mean Platelet Volume 8.5 Neutrophils (%) (Auto) 91.4 Lymphocytes (%) (Auto) 5.1 Monocytes (%) (Auto) 3.2 Eosinophils (%) (Auto) 0.1 Basophils (%) (Auto) 0.2 Neutrophils # (Auto) 8.4 Lymphocytes # (Auto) 0.5 Monocytes # (Auto) 0.3 Eosinophils # (Auto) 0.0 Basophils # (Auto) 0.0 CBC Comment AUTO DIFF Differential Total Cells Counted 100 Neutrophils % (Manual) 87 Band Neutrophils % 5 Lymphocytes % 4 Monocytes % 1 Neutrophils # (Manual) 8.6 Metamyelocytes 1 Myelocytes 1 Promyelocytes 1 Differential Comment FINAL DIFF MANUAL Blood Urea Nitrogen 72 Creatinine 2.71 Random Glucose 230 Calcium Level 8.1 Sodium Level 143 Chloride Level 104 Carbon Dioxide Level 29.2 Anion Gap 10 Estimat Glomerular Filtration Rate 18 Date/Time Source Procedure Growth Status 09/10/17 08:30 Blood Peripheral Aerobic Blood Culture - Final NO GROWTH IN 5 DAYS Complete 09/10/17 08:30 Blood Peripheral Anaerobic Blood Culture - Final NO GROWTH IN 5 DAYS Complete 09/08/17 21:10 Sputum Oral Tracheal Aspirate Gram Stain - Final Complete 09/08/17 21:10 Sputum Culture - Final Escherichia Coli Complete 09/09/17 09:45 Urine Clean Catch Urine Culture - Final NO GROWTH IN 48 HOURS. Complete 09/15/17 08:31 Wound Abdomen Gram Stain Pending Received 09/15/17 08:31 Wound Abdomen Wound Culture Pending Received Radiology Last Impressions Chest X-Ray 09/15/17 0000 Signed Impressions: Service Date/Time: Friday, September 15, 2017 04:17 - CONCLUSION: Stable chest x-ray with bilateral mid and lower lung zone airspace opacities. Damian Bedolla MD Abdomen Fluoroscopy 09/08/17 0000 Signed Impressions: Service Date/Time: Friday, September 08, 2017 12:04 - CONCLUSION: Uncomplicated nasogastric tube placement as above. Tae Archuleta Jr., MD Abdomen/Pelvis CT 09/07/17 0000 Signed Impressions: Service Date/Time: August 12:20 - CONCLUSION: 1. Small bowel obstruction with transition point in the lower abdomen adjacent to an area of indurated mesentery. 2. Marked dilation of the intrahepatic biliary system , up to 2.2 cm, and some mild distention of the intrahepatic biliary system. Differential considerations include a distal biliary obstruction and reservoir effect from prior cholecystectomy. Tae Roblero MD Cardiovascular: Regular Lungs: Rhonchi Abdomen: Other (rare bowel sounds) Extremities: Other (edematous) Wound Wound : Wound Location: Abdomen (ROSSI drainage remains serous. Incision to the RLQ with scant drainage) A/P Assessment and Plan 61yo F with small bowel perforation and peritonitis -Worsening kidney function agree with any decision for hemodialysis -Continue with appropriate weaning of vent support -Will continue with TPN for now until more bowel activity returns Flower Gomez [facility] Sep 15, 2017 13:15
--- NOTE | 2017-09-15 15:35 | HHI.NPPN ---
Subjective History of Present Illness Patient is a 61-year-old morbidly obese female who underwent gastric sleeve operation earlier this month on 08/23/17, patient has obstructive symptoms she was admitted and then as been doing well until when she developed the abdominal pain nausea vomiting and patient has been brought her back to the emergency. She had diagnoses of peritonitis, bowel obstruction, septic shock. Underwent surgical bowel resection due to perforation currently intubated Objective Data Data 09/15/17 09/16/17 19:00 07:00 Intake Total 873 ml Balance 873 ml IV Total 273 ml Packed Cells 400 ml Blood Product IV Normal Saline Flush 200 ml Vital Signs Date Time Temp Pulse Resp B/P (MAP) Pulse Ox O2 Delivery O2 Flow Rate FiO2 09/15/17 13:15 98.6 95 22 137/64 97 09/15/17 12:12 96 35 09/15/17 12:00 35 09/15/17 12:00 98.8 95 22 141/63 (89) 97 09/15/17 12:00 95 09/15/17 11:45 98.9 96 28 152/69 98 09/15/17 11:28 98.8 96 23 129/64 97 09/15/17 10:00 100 09/15/17 09:05 97 35 09/15/17 08:00 91 09/15/17 08:00 40 09/15/17 08:00 98.8 91 22 128/63 (84) 97 09/15/17 07:00 Mechanical Ventilator 40 09/15/17 06:00 92 09/15/17 04:00 92 09/15/17 04:00 40 09/15/17 04:00 98.7 92 12 116/57 (76) 100 09/15/17 03:54 99 40 09/15/17 02:00 102 09/15/17 00:27 97 40 09/15/17 00:00 40 09/15/17 00:00 104 09/15/17 00:00 98.2 104 23 134/70 (91) 97 09/14/17 22:00 110 09/14/17 21:20 100 40 09/14/17 20:00 106 09/14/17 20:00 98.8 106 24 148/84 (105) 96 09/14/17 20:00 40 09/14/17 19:00 106 09/14/17 19:00 Mechanical Ventilator 40 09/14/17 18:00 106 09/14/17 16:01 95 40 09/14/17 16:00 50 09/14/17 16:00 98.1 100 21 136/71 (92) 96 09/14/17 16:00 100 -: 09/15/17 0400 09/15/17 0400 Microbiology 09/15/17 Gram Stain - Final, Resulted 09/15/17 Wound Culture, Resulted Pending Physical Exam General Appearance: Well Developed, Well Nourished Neck Neck Exam: Neck Supple Pulmonary Resp Exam: Decreased Bases Cardiology CV Exam: Regular Gastrointestinal/Abdomen GI Exam: Soft, Bowel Sounds Absent Extremeties Extremities Exam: Pitting Edema, Dependent Edema Assessment/Plan Problem List: (1) Acute renal failure ICD Codes: N17.9 - Acute kidney failure, unspecified Plan: Patient was in septic shock and now recovering patient is responding to Lasix drip at 10 mg /hr Discussed with Dr. Landin continue to observe on diuretics she passed 6.3 L of urine Creatinine slightly higher vent setting is improving chest x-ray improved [facility] I will order K-Lyte 25 twice a day BMP monitored Avoid nephrotoxic medications (2) Small bowel obstruction ICD Codes: K56.609 - Unspecified intestinal obstruction, unspecified as to partial versus complete obstruction Status: Acute Plan: Status post surgical intervention (3) Ileus following gastrointestinal surgery ICD Codes: K91.30 - Postprocedural intestinal obstruction, unspecified as to partial versus complete Plan: Continue to monitor Annita Bnod MD Sep 15, 2017 15:35
--- NOTE | 2017-09-15 16:59 | PD.PROCEDR ---
Procedure Note Procedure DX: Hypoxemic Respiratory Failure (J96.01) OP: Insertion Left Radial Arterial Line (28788) Procedure: Time out. Christiano test normal left hand. Left wrist supinated, prepped and draped. Left radial artery cannulated with 20 gauge needle and cannula advanced into artery 3 cm. Good waveform observed. Dressing applied. Circulation to left hand intact after procedure. Jose Landin MD Sep 15, 2017 16:59
[2017-09-15] MEDS ORDERED: POTASSIUM CHLOR 20 MEQ PREMIX 100 ML IV ONE (17:00)
[2017-09-15 17:16] LABS: BLOOD GAS BASE EXCESS 4.4 mmol/L (-2-2); BLOOD GAS HCO3 28 mmol/L (22-26); BLOOD GAS METHEMOGLOBIN 0.7 % (0-2); BLOOD GAS O2 HGB SATURATION 96 % (90-100); BLOOD GAS OXYGEN CONTENT 10.1 Vol % (12.0-20.0); BLOOD GAS PCO2 40 mmHg (38-42); BLOOD GAS PO2 159 mmHg (61-120); BLOOD GAS TOTAL HGB 7.2 G/DL (12.0-16.0); CRITICAL VALUE NO; OXYGEN DEVICE VENTILATOR; TEMP CORR TO 98.6
[2017-09-15 17:18] LABS: DRAW SITE ART LINE; FIO2 35 %; STAT NO; VENT SETTINGS APRV/BILEVEL
[2017-09-15 17:28] LABS: HEMATOCRIT 24.5 % (35.0-46.0); REVIEW FLAG FINAL
[2017-09-15] MEDS: MULTIVITAMIN INJ 10 ML, FOLIC ACID INJ 1 MG, INSULIN HUMAN REGULAR INJ 40 UNITS in AMIN... IV-CENTRAL SCH (20:38)
[2017-09-15] MEDS ORDERED: POTASSIUM CHLORIDE 25 MEQ EFFERVESCENT TAB NG SCH (21:00)
[2017-09-16] VITALS (18 sets, daily range): BP systolic 139–169; BP diastolic 65–79; PULSE 70–100; RESP 12–21; TEMP 97.8–99.3; O2SAT 97–98
[2017-09-16] MEDS: INSULIN ASPART SUPPLEMENTAL SCALE SQ SCH ×4 (00:30→17:49)
[2017-09-16] MEDS: ALBUMIN 25% INJ 100 ML IV SCH ×3 (00:42→16:15)
[2017-09-16] MEDS: fentaNYL DRIP 250 ML IV PRN (01:03)
[2017-09-16] MEDS: metroNIDAZOLE 500 MG INJ 100 ML IV SCH ×4 (03:25→20:57)
[2017-09-16] MEDS: RESP: ALBUTEROL 2.5 MG/IPRATROPIUM 0.5 MG NEB (SCH) NEB ×4 (04:17→21:48)
[2017-09-16] MEDS: ENOXAPARIN SODIUM 30 MG/0.3 ML SYRINGE SQ SCH (05:23)
[2017-09-16] MEDS: HYDROCORTISONE SOD SUCCINATE 100 MG VIAL IV PUSH SCH ×2 (05:23→17:30)
[2017-09-16] MEDS: LEVOTHYROXINE SODIUM 100 MCG VIAL IV PUSH SCH (05:23)
[2017-09-16 05:26] LABS: BLOOD GAS BASE EXCESS 5.2 mmol/L (-2-2); BLOOD GAS HCO3 30 mmol/L (22-26); BLOOD GAS METHEMOGLOBIN 1.5 % (0-2); BLOOD GAS O2 HGB SATURATION 96 % (90-100); BLOOD GAS PCO2 50 mmHg (38-42); BLOOD GAS PO2 161 mmHg (61-120); BLOOD GAS TOTAL HGB 10.8 G/DL (12.0-16.0); TEMP CORR TO 98.6
[2017-09-16 05:27] LABS: CRITICAL VALUE NO; OXYGEN DEVICE VENT
[2017-09-16 05:39] LABS: AUTOMATED NEUTROPHIL # 11.6 TH/MM3 (1.8-7.7); BASOPHIL % 0.1 % (0.0-2.0); EOSINOPHIL % 0.1 % (0.0-4.0); HEMATOCRIT 25.6 % (35.0-46.0); LYMPH % 7.6 % (9.0-44.0); MEAN CORPUSCULAR HEMOGLOBIN 29.7 PG (27.0-34.0); MEAN CORPUSCULAR HGB CONC 33.8 % (32.0-36.0); MONO % 2.6 % (0.0-8.0); NEUT % 89.6 % (16.0-70.0); PLATELET COUNT 136 TH/MM3 (150-450); RED BLOOD COUNT 2.91 MIL/MM3 (4.00-5.30); RED CELL DISTRIBUTION WIDTH 16.6 % (11.6-17.2); WHITE BLOOD COUNT 12.9 TH/MM3 (4.0-11.0)
[2017-09-16 05:50] LABS: HEMO FLAGS AUTO DIFF
[2017-09-16 05:53] LABS: DRAW SITE ART LINE; FIO2 35 %; STAT NO; ULNAR PULSE PRESENT; VENT SETTINGS SEE COMMENTS
[2017-09-16 05:58] LABS: BICARBONATE 32.7 MEQ/L (21.0-32.0); INDIRECT BILIRUBIN 0.4 MG/DL (0.0-0.8); POTASSIUM 3.1 MEQ/L (3.5-5.1); TOTAL BILIRUBIN ADULT 0.8 MG/DL (0.2-1.0)
[2017-09-16 06:26] LABS: BANDS 3 % (0-6); METAMYELOCYTES 1 % (0-1); NEUTROPHIL # MANUAL DIFF 11.6 TH/MM3 (1.8-7.7); PLATELET ESTIMATE SMEAR LOW (NORMAL); PLATELET MORPHOLOGY NORMAL (NORMAL); POLYS (SEG NEUTROPHILS) 86 % (16-70); SCAN/DIFF FINAL DIFF MANUAL; WBC DIFF SAMPLE 100
[2017-09-16] MEDS: CHLORHEXIDINE 0.12% (ORAL KIT) 15 ML CUP MT SCH ×2 (08:20→20:57)
[2017-09-16] MEDS: CEFEPIME INJ 2,000 MG in SODIUM CHLORIDE 0.9% INJ 100 ML IV SCH (08:31)
[2017-09-16] MEDS: SODIUM CHLORIDE 0.9% FLUSH 10 ML FLUSH IV FLUSH SCH ×2 (09:43→20:57)
[2017-09-16] MEDS: PANTOPRAZOLE SODIUM 40 MG VIAL IV PUSH SCH (09:43)
[2017-09-16] MEDS: levETIRAcetam INJ 500 MG in SODIUM CHLORIDE 0.9% INJ 100 ML IV SCH ×2 (09:52→20:57)
[2017-09-16] MEDS: INSULIN DETEMIR 100 UNITS/ML VIAL SQ SCH ×2 (09:52→20:58)
--- NOTE | 2017-09-16 09:52 | HHI.PR ---
Subjective Subjective Notes remains on vent, increased movement this am, turning head, opened eyes, Cr continues to rise, responding to lasix Objective Vitals/I&O Vital Signs Date Time Temp Pulse Resp B/P (MAP) Pulse Ox O2 Delivery O2 Flow Rate FiO2 09/16/17 08:17 97 35 09/16/17 06:00 99 09/16/17 04:00 99.3 21 146/73 (97) 09/15/17 07:00 Mechanical Ventilator Labs Laboratory Tests Test 09/15/17 16:50 09/15/17 17:00 09/15/17 17:07 09/16/17 05:00 Urine Eosinophils NONE SEEN Hemoglobin 8.1 8.6 Hematocrit 24.5 25.6 Potassium Level 3.2 3.1 Blood Gas Puncture Site ART LINE Blood Gas Patient Temperature 98.6 Blood Gas HCO3 28 Blood Gas Base Excess 4.4 Blood Gas Oxygen Saturation 96 Arterial Blood pH 7.46 Arterial Blood Partial Pressure CO2 40 Arterial Blood Partial Pressure O2 159 Arterial Blood Oxygen Content 10.1 Arterial Blood Carboxyhemoglobin 0.0 Arterial Blood Methemoglobin 0.7 Blood Gas Hemoglobin 7.2 Oxygen Delivery Device VENTILATOR Blood Gas Ventilator Setting APRV/BILEVEL Blood Gas Inspired Oxygen 35 White Blood Count 12.9 Red Blood Count 2.91 Mean Corpuscular Volume 88.0 Mean Corpuscular Hemoglobin 29.7 Mean Corpuscular Hemoglobin Concent 33.8 Red Cell Distribution Width 16.6 Platelet Count 136 Mean Platelet Volume 9.0 Neutrophils (%) (Auto) 89.6 Lymphocytes (%) (Auto) 7.6 Monocytes (%) (Auto) 2.6 Eosinophils (%) (Auto) 0.1 Basophils (%) (Auto) 0.1 Neutrophils # (Auto) 11.6 Lymphocytes # (Auto) 1.0 Monocytes # (Auto) 0.3 Eosinophils # (Auto) 0.0 Basophils # (Auto) 0.0 CBC Comment AUTO DIFF Differential Total Cells Counted 100 Neutrophils % (Manual) 86 Band Neutrophils % 3 Lymphocytes % 7 Monocytes % 3 Neutrophils # (Manual) 11.6 Metamyelocytes 1 Differential Comment FINAL DIFF MANUAL Platelet Estimate LOW Platelet Morphology Comment NORMAL Red Cell Morphology Comment NORMAL Blood Urea Nitrogen 92 Creatinine 2.88 Random Glucose 191 Total Protein 5.9 Albumin 3.5 Calcium Level 8.4 Alkaline Phosphatase 293 Aspartate Amino Transf (AST/SGOT) 19 Alanine Aminotransferase (ALT/SGPT) 24 Total Bilirubin 0.8 Direct Bilirubin 0.4 Sodium Level 146 Chloride Level 105 Carbon Dioxide Level 32.7 Anion Gap 8 Estimat Glomerular Filtration Rate 17 Indirect Bilirubin 0.4 Test 09/16/17 05:15 Blood Gas Puncture Site ART LINE Blood Gas Patient Temperature 98.6 Blood Gas HCO3 30 Blood Gas Base Excess 5.2 Blood Gas Oxygen Saturation 96 Arterial Blood pH 7.40 Arterial Blood Partial Pressure CO2 50 Arterial Blood Partial Pressure O2 161 Arterial Blood Oxygen Content 15.0 Arterial Blood Carboxyhemoglobin 1.0 Arterial Blood Methemoglobin 1.5 Blood Gas Hemoglobin 10.8 Oxygen Delivery Device VENT Blood Gas Ventilator Setting SEE COMMENTS Blood Gas Inspired Oxygen 35 Date/Time Source Procedure Growth Status 09/10/17 08:30 Blood Peripheral Aerobic Blood Culture - Final NO GROWTH IN 5 DAYS Complete 09/10/17 08:30 Blood Peripheral Anaerobic Blood Culture - Final NO GROWTH IN 5 DAYS Complete 09/08/17 21:10 Sputum Oral Tracheal Aspirate Gram Stain - Final Complete 09/08/17 21:10 Sputum Culture - Final Escherichia Coli Complete 09/09/17 09:45 Urine Clean Catch Urine Culture - Final NO GROWTH IN 48 HOURS. Complete 09/15/17 08:31 Wound Abdomen Gram Stain - Final Resulted 09/15/17 08:31 Wound Abdomen Wound Culture Pending Resulted Radiology Last Impressions Chest X-Ray 09/15/17 0000 Signed Impressions: Service Date/Time: Friday, September 15, 2017 04:17 - CONCLUSION: Stable chest x-ray with bilateral mid and lower lung zone airspace opacities. Damian Bedolla MD Abdomen Fluoroscopy 09/08/17 0000 Signed Impressions: Service Date/Time: Friday, September 08, 2017 12:04 - CONCLUSION: Uncomplicated nasogastric tube placement as above. Tae Archuleta Jr., MD Abdomen/Pelvis CT 09/07/17 0000 Signed Impressions: Service Date/Time: August 12:20 - CONCLUSION: 1. Small bowel obstruction with transition point in the lower abdomen adjacent to an area of indurated mesentery. 2. Marked dilation of the intrahepatic biliary system , up to 2.2 cm, and some mild distention of the intrahepatic biliary system. Differential considerations include a distal biliary obstruction and reservoir effect from prior cholecystectomy. Tae Roblero MD Abdomen: Other (soft david serous, incisions well approximated) A/P Assessment and Plan 61yo F with small bowel perforation and peritonitis -Worsening kidney function consider hemodialysis defer to nephro -ISC for vent support -Will continue with TPN will check prealbumin - continue close monitoring dvt ppx - sepulveda for Is and Os Julian Preciado MD Sep 16, 2017 09:52
[2017-09-16] MEDS: FUROSEMIDE INJ 100 MG in SODIUM CHLORIDE 0.9% INJ 90 ML IV SCH ×2 (10:11→21:30)
--- NOTE | 2017-09-16 11:06 | HHI.IDPN ---
Subjective Subjective Remarks ID x cover chart reviewed pt is having low grade fever WBC going up to 12.9 Diuresing well 7.9L out, but still extremely edematous On TPN No eosinophils in the urine On vent Antibiotics cefepime flagyl Allergies: Coded Allergies: propoxyphene (Unverified Allergy, Intermediate, HALLUCINATIONS, 08/23/17) Uncoded Allergies: ADHESIVE TAPE (Allergy, Intermediate, PULLS SKIN OFF, 09/20/13) DARVOCET-HALLUCINATIONS; (Allergy, Unknown, 06/24/03) Objective . Vital Signs Date Time Temp Pulse Resp B/P (MAP) Pulse Ox O2 Delivery O2 Flow Rate FiO2 09/16/17 08:17 97 35 09/16/17 06:00 99 09/16/17 04:17 97 35 09/16/17 04:00 93 09/16/17 04:00 99.3 93 21 146/73 (97) 97 09/16/17 04:00 35 09/16/17 02:00 96 09/16/17 01:19 97 35 09/16/17 00:00 97.8 86 13 169/75 (106) 97 09/16/17 00:00 89 09/16/17 00:00 35 09/15/17 22:00 99 09/15/17 21:14 99 35 09/15/17 20:00 100 09/15/17 20:00 35 09/15/17 20:00 99.3 100 21 154/73 (100) 97 09/15/17 18:00 88 09/15/17 16:55 97 35 09/15/17 16:00 35 09/15/17 16:00 98.8 94 20 139/63 (88) 96 09/15/17 16:00 94 09/15/17 14:00 92 09/15/17 13:15 98.6 95 22 137/64 97 09/15/17 12:12 96 35 09/15/17 12:00 35 09/15/17 12:00 98.8 95 22 141/63 (89) 97 09/15/17 12:00 95 09/15/17 11:45 98.9 96 28 152/69 98 09/15/17 11:28 98.8 96 23 129/64 97 . Laboratory Tests Test 09/15/17 04:00 09/15/17 17:00 12/2/17 05:00 White Blood Count 9.1 TH/MM3 12.9 TH/MM3 Red Blood Count 2.41 MIL/MM3 2.91 MIL/MM3 Hemoglobin 7.0 GM/DL 8.1 GM/DL 8.6 GM/DL Hematocrit 21.5 % 24.5 % 25.6 % Mean Corpuscular Volume 89.2 FL 88.0 FL Mean Corpuscular Hemoglobin 29.2 PG 29.7 PG Mean Corpuscular Hemoglobin Concent 32.7 % 33.8 % Red Cell Distribution Width 16.8 % 16.6 % Platelet Count 112 TH/MM3 136 TH/MM3 Mean Platelet Volume 8.5 FL 9.0 FL Neutrophils (%) (Auto) 91.4 % 89.6 % Lymphocytes (%) (Auto) 5.1 % 7.6 % Monocytes (%) (Auto) 3.2 % 2.6 % Eosinophils (%) (Auto) 0.1 % 0.1 % Basophils (%) (Auto) 0.2 % 0.1 % Neutrophils # (Auto) 8.4 TH/MM3 11.6 TH/MM3 Lymphocytes # (Auto) 0.5 TH/MM3 1.0 TH/MM3 Monocytes # (Auto) 0.3 TH/MM3 0.3 TH/MM3 Eosinophils # (Auto) 0.0 TH/MM3 0.0 TH/MM3 Basophils # (Auto) 0.0 TH/MM3 0.0 TH/MM3 CBC Comment AUTO DIFF AUTO DIFF Differential Total Cells Counted 100 100 Neutrophils % (Manual) 87 % 86 % Band Neutrophils % 5 % 3 % Lymphocytes % 4 % 7 % Monocytes % 1 % 3 % Neutrophils # (Manual) 8.6 TH/MM3 11.6 TH/MM3 Metamyelocytes 1 % 1 % Myelocytes 1 % Promyelocytes 1 % Differential Comment FINAL DIFF MANUAL FINAL DIFF MANUAL Platelet Estimate LOW Platelet Morphology Comment NORMAL Red Cell Morphology Comment NORMAL Laboratory Tests Test 09/14/17 16:00 09/15/17 04:00 09/15/17 17:00 09/16/17 05:00 Potassium Level 3.5 MEQ/L 3.4 MEQ/L 3.2 MEQ/L 3.1 MEQ/L Blood Urea Nitrogen 72 MG/DL 92 MG/DL Creatinine 2.71 MG/DL 2.88 MG/DL Random Glucose 230 MG/DL 191 MG/DL Calcium Level 8.1 MG/DL 8.4 MG/DL Sodium Level 143 MEQ/L 146 MEQ/L Chloride Level 104 MEQ/L 105 MEQ/L Carbon Dioxide Level 29.2 MEQ/L 32.7 MEQ/L Anion Gap 10 MEQ/L 8 MEQ/L Estimat Glomerular Filtration Rate 18 ML/MIN 17 ML/MIN Total Protein 5.9 GM/DL Albumin 3.5 GM/DL Alkaline Phosphatase 293 U/L Aspartate Amino Transf (AST/SGOT) 19 U/L Alanine Aminotransferase (ALT/SGPT) 24 U/L Total Bilirubin 0.8 MG/DL Direct Bilirubin 0.4 MG/DL Indirect Bilirubin 0.4 MG/DL Microbiology Date/Time Source Procedure Growth Status 09/15/17 08:31 Wound Abdomen Gram Stain - Final Resulted 09/15/17 08:31 Wound Abdomen Wound Culture Pending Resulted Imaging Last Impressions Chest X-Ray 09/15/17 0000 Signed Impressions: Service Date/Time: Friday, September 15, 2017 04:17 - CONCLUSION: Stable chest x-ray with bilateral mid and lower lung zone airspace opacities. Damian Bedolla MD Abdomen Fluoroscopy 09/08/17 0000 Signed Impressions: Service Date/Time: Friday, September 08, 2017 12:04 - CONCLUSION: Uncomplicated nasogastric tube placement as above. Tae Archuleta Jr., MD Abdomen/Pelvis CT 09/07/17 0000 Signed Impressions: Service Date/Time: August 12:20 - CONCLUSION: 1. Small bowel obstruction with transition point in the lower abdomen adjacent to an area of indurated mesentery. 2. Marked dilation of the intrahepatic biliary system , up to 2.2 cm, and some mild distention of the intrahepatic biliary system. Differential considerations include a distal biliary obstruction and reservoir effect from prior cholecystectomy. Tae Roblero MD Physical Exam CONSTITUTIONAL/GENERAL: This is a morbidly obese patient, in no apparent distress. Intubated, on vent TUBES/LINES/DRAINS: SKIN: No jaundice, rashes, or lesions. Skin temperature appropriate. Not diaphoretic. EYES: Pupils equal and round and reactive. Extraocular motions intact. No scleral icterus. No injection or drainage. Fundi not examined. CARDIOVASCULAR: Regular rate and rhythm without murmurs, gallops, or rubs. No JVD. Peripheral pulses symmetric. RESPIRATORY/CHEST: Symmetric, unlabored respirations. Clear to auscultation. Breath sounds equal bilaterally. No wheezes, rales, or rhonchi. GASTROINTESTINAL: Abdomen soft, non-tender, obese nondistended, edematous . JPs x [address] with serous driqnage Unable to appreciate hepato-splenomegaly, or palpable masses. Bowel sounds are not audible, GENITOURINARY: Without palpable bladder distension. Bedolla catheter in place. MUSCULOSKELETAL: Extremities without clubbing, cyanosis, + prominent edema. . NEUROLOGICAL:Sedated PSYCHIATRIC: unable to assess Assessment & Plan Remarks IMPRESSION 1. Septic shock. 2. Post exploratory laparotomy and small bowel resection along with lysis of adhesions for small bowel perforation. 3. Peritonitis due to due to small bowel perforation. 4. Acute respiratory failure. 5. VAP gram negative. E. coli. 6. Acute kidney disease. ? sepsis related. ? medication. ? diuresis - worsening ceratining Worsening leukocytosis RECOMMENDATIONS 1. Continue Cefepime 2. Continue Metronidazole 3. Continue Fluconazole 4. Monitor blood culture. 5. Monitor abdominal drainage clx 6. Avoid nephrotoxic meds. 7. fu WBC dw pt's family @ b/s Alicja Lin MD Sep 16, 2017 11:06
--- NOTE | 2017-09-16 11:38 | HHI.CCPN ---
Subjective Remarks/Hospital Course 61-year-old morbidly obese female presents, patient of Dr. Epstein, status post gastric sleeve 08-22-17 now presents with nonbloody emesis and unable to have a bowel movement for a couple days. She states to get that bowel movement she had a use a glycerin suppository and it was just loose. He was taken emergently to operating room and was found to have a small bowel ischemia. She underwent laparoscopic small bowel resection by Dr. Epstein and is postoperatively admitted to critical care unit SUBJ 09/09/17: Remains very critically ill. Profound septic shock requiring Levophed at 40 mcg/m, Des-Synephrine at 500 mcg/m, vasopressin at 0.04 international units, and to be demand 5 g per KG per minute. Urine output 150 mL overnight. Maintaining oxygen saturation. A.m. labs are pending at this time. Surprisingly patient is still mentating able to communicate. Remains on IV fentanyl infusion for pain control. Operative report is pending at this time. Received total of 9 L of crystalloid postoperatively. Receiving 2 units of PRBC. I will replace calcium. Lactic acid 3.5 at 4 AM 09/10: Critically ill but stable. Levophed down to 12 mcg/min, vasopressin at 0.04 IU. Uo 650 ml in 24 hours, bilateral abdominal drains with 1 L output. Right drain had greenish output overnight and now serosanguineous. D/ W Dr Epstein- he confirms perforation and gross contamination 09/11: Remains critically. FiO2 requirement up to 60%, I have increased PEEP to 10. CXR consistent with ARDS versus fluid overload. Creatinine increased to 1.24. Urine output 600 ml in 24 hours. CVP 18-20. Start IV Bumex 1 mg every 12 hours with additional 1 mg dose now. Levophed at 1 mcg/min, vasopressin at 0.04 IU 09/12: remains critically ill but stable to improving. SBP 130-140 on vasopressin will DC vasopressin. Chest x-ray shows bilateral pulmonary edema, but oxygenation has improved. Stable on 50% and PEEP of 10. Creatinine has worsened to 1.67 but urine output 1.5 L in 24 hours with Bumex. CVP remains about 20. Will increase Bumex to 1 mg every 8 hours and give additional 1 mg now. Closely monitor creatinine. 09/13: Weaning off vasopressors. SHEA persists. CXR with diffuse infiltrates , will switch modes for better recruitment hopefully. 09/14: Gas exchange improved on APRV. Renal function deteriorating. Remains fluid overloaded. 09/15: Gas exchange improved but renal function continues to deteriorate. Continue APRV - bases struggle for domain. 09/16: remains fairly encephalopathic, likely hypoactive delirium. renal function still worse today, although ? peaked?. continue APRV: body habitus would make de-recruitment almost certain if we switch to conventional mode of ventilation. still diuresing well. Objective Vital Signs Date Time Temp Pulse Resp B/P (MAP) Pulse Ox O2 Delivery O2 Flow Rate FiO2 09/16/17 11:19 97 35 09/16/17 06:00 99 09/16/17 04:00 99.3 21 146/73 (97) 09/15/17 07:00 Mechanical Ventilator Intake and Output 09/16/17 09/16/17 09/17/17 08:00 16:00 00:00 Output Total 4140 ml Balance -4140 ml Result Diagram: 09/16/17 0500 09/16/17 0500 Other Results Laboratory Tests Test 09/15/17 17:07 09/16/17 05:15 Blood Gas Puncture Site ART LINE ART LINE Blood Gas Patient Temperature 98.6 98.6 Blood Gas HCO3 28 mmol/L (22-26) 30 mmol/L (22-26) Blood Gas Base Excess 4.4 mmol/L (-2-2) 5.2 mmol/L (-2-2) Blood Gas Oxygen Saturation 96 % (90-100) 96 % (90-100) Arterial Blood pH 7.46 (7.380-7.420) 7.40 (7.380-7.420) Arterial Blood Partial Pressure CO2 40 mmHg (38-42) 50 mmHg (38-42) Arterial Blood Partial Pressure O2 159 mmHg (61-120) 161 mmHg (61-120) Arterial Blood Oxygen Content 10.1 Vol % (12.0-20.0) 15.0 Vol % (12.0-20.0) Arterial Blood Carboxyhemoglobin 0.0 % (0-4) 1.0 % (0-4) Arterial Blood Methemoglobin 0.7 % (0-2) 1.5 % (0-2) Blood Gas Hemoglobin 7.2 G/DL (12.0-16.0) 10.8 G/DL (12.0-16.0) Oxygen Delivery Device VENTILATOR VENT Blood Gas Ventilator Setting APRV/BILEVEL SEE COMMENTS Blood Gas Inspired Oxygen 35 % 35 % Objective Remarks GENERAL: morbidly Obese, edematous female not sedated and intubated. SKIN: Warm and dry. HEAD: Normocephalic. EYES: No scleral icterus. No injection or drainage. NECK: Supple, trachea midline. Orotracheally intubated CARDIOVASCULAR: normal rate, regular rhythm. Heart sounds distant. JVD difficult to assess due to body habitus. RESPIRATORY: Breath sounds equal bilaterally, with bilateral crackles. Decreased bases. GASTROINTESTINAL: Abdomen soft, tender, distended. Morbidly obese. MUSCULOSKELETAL: No cyanosis, or edema. Well perfused. 3+ edema, diffuse. NEURO EXAM: Unresponsive, intubated, not following commands but withdraws all extremities. Pupils are round, reactive to light. A/P Assessment and Plan Assessment: 61yF s/p gastric bypass complicated by small bowel obstruction, intra-abdominal sepsis, persistent respiratory failure, volume overload. remains off pathway. hypoactive delirium/encephalopathy persists. will avoid sedating meds. add breakthrough prn fentanyl for turning and repositioning, and haldol prn for agitation. continue forced diuresis. SHEA worsens but ?plateauing? . multiple organs still dysfunctional. highly complex and off pathway. A/P: NEURO: Seizure disorder Metabolic encephalopathy Hypoactive Delirium - Currently off all sedation - Keppra IV. - hold sedating meds - fentanyl prn for positioning. - haldol for agitation - provigil for wakefulness. RESP: Acute hypoxemic respiratory failure - persistent. ARDS HCAP with E Coli - Continue mechanical ventilation/APRV mode, keep peak pressure <35 considering morbid obesity, Wean FiO2 and PEEP keeping SaO2> 90% - No weaning until hemodynamically stable, CXR improved - ABG, CXR daily, Vent bundle - DuoNeb every 6 hours scheduled and when necessary - Diuresis as below - Bilateral pulmonary opacities, fluid overload and acute lung injury/ARDS will need to consider tracheostomy if no significant improvements in next few days. CVS: Septic shock-resolved. Lactic acidosis - resolved. - s/p Aggressive IV fluid resuscitation, postop received 9 L of normal saline, 2 units of PRBC - lasix drip. - Hydrocortisone stress dose-start weaning 09/13 - now 25 tid, continue weaning to off over next 72h. GI: Small bowel ischemia/Perforation Peritonitis - POD # 8 S/P Laparoscopic SBR for gangrenous small bowel - Post op surgical management per Dr. Epstein general surgery - NPO, IV Protonix. Started TPN 09/10/17 : Acute kidney failure - worsening. Contraction alkalosis - ATN most likely from severe septic shock - Continue lasix drip as above - Maintain Bedolla for accurate intake output - add diamox 500mg iv q8h x 3 doses for alkalosis. HEME: Anemia - s/p 2 units of PRBC, transfuse to keep Hb >7.5 - Monitor H&H - Drop in platelet most likely sepsis, monitor - Transfuse one unit rbc ID: Septic shock - resolved. Peritonitis HCAP with E Coli - Broad-spectrum antibiotic - Flagyl, Diflucan, cefepime. - Sputum culture E Coli - Blood cultures, urine culture follow up - ID following ENDO: Diabetes mellitus Hypocalcemia - Insulin sliding scale, and IV insulin with TPN - Electrolyte replacement per protocol - Continue levemir bid DVT GI prophylaxis - Teds SCDs - Pharmacological DVT prophylaxis Lovenox 40 mg subcutaneous every 12- reduced to 40 qd due to worsening creatinine - Protonix D/W Dr. Hernandez, and updated sister at bedside Overall impression: Remains critically ill with persistent ARDS, severe hypoxemia and worsening acute kidney injury. Glucose control acceptable. Saroj Hill MD Sep 16, 2017 11:38
--- NOTE | 2017-09-16 14:29 | HHI.NPPN ---
Subjective History of Present Illness Patient is a 61-year-old morbidly obese female who underwent gastric sleeve operation earlier this month on 08/23/17, patient has obstructive symptoms she was admitted and then as been doing well until Thanks when she developed the abdominal pain nausea vomiting and patient has been brought her back to the emergency. She had diagnoses of peritonitis, bowel obstruction, septic shock. Underwent surgical bowel resection due to perforation currently intubated Additional Remarks Patient remain intubated and sedated, not in distress. Objective Data Data 09/16/17 09/17/17 19:00 07:00 Output Total 1630 ml Balance -1630 ml Output Urine Total 1550 ml Drainage Total 80 ml Vital Signs Date Time Temp Pulse Resp B/P (MAP) Pulse Ox O2 Delivery O2 Flow Rate FiO2 09/16/17 12:00 97.9 81 12 139/65 (89) 97 09/16/17 11:19 97 35 09/16/17 08:17 97 35 09/16/17 08:00 98.2 87 21 155/71 (99) 97 09/16/17 06:00 99 09/16/17 04:17 97 35 09/16/17 04:00 93 09/16/17 04:00 99.3 93 21 146/73 (97) 97 09/16/17 04:00 35 09/16/17 02:00 96 09/16/17 01:19 97 35 09/16/17 00:00 97.8 86 13 169/75 (106) 97 09/16/17 00:00 89 09/16/17 00:00 35 09/15/17 22:00 99 09/15/17 21:14 99 35 09/15/17 20:00 100 09/15/17 20:00 35 09/15/17 20:00 99.3 100 21 154/73 (100) 97 09/15/17 18:00 88 09/15/17 16:55 97 35 09/15/17 16:00 35 09/15/17 16:00 98.8 94 20 139/63 (88) 96 09/15/17 16:00 94 -: 09/16/17 0500 09/16/17 0500 Physical Exam General Appearance Remarks Intubated and sedated. Neck Neck Exam: Neck Supple Pulmonary Resp Exam: Crackles, Rhonchi, Decreased Bases, Diminished Breath Sounds, Poor Inspiratory Effort Cardiology CV Exam: Regular Gastrointestinal/Abdomen GI Exam: Soft, Non-Tender, Distended, Bowel Sounds Absent Extremeties Extremities Exam: Pitting Edema, Dependent Edema Neurologic Neuro Exam: Sedated Assessment/Plan Problem List: (1) Acute renal failure ICD Codes: N17.9 - Acute kidney failure, unspecified Plan: Patient was in septic shock and now recovering patient is responding to Lasix drip at 10 mg /hr Avoid nephrotoxic medications Creatinine is almost same. Diuresing well, urine out put is good. Follow the urine out put and BMP. (2) Small bowel obstruction ICD Codes: K56.609 - Unspecified intestinal obstruction, unspecified as to partial versus complete obstruction Status: Acute Plan: Status post surgical intervention (3) Ileus following gastrointestinal surgery ICD Codes: K91.30 - Postprocedural intestinal obstruction, unspecified as to partial versus complete Plan: Continue to monitor Steph Akers MD Sep 16, 2017 14:28
[2017-09-16] MEDS ORDERED: HALOPERIDOL LACTATE 5 MG/ML AMP IV PUSH PRN (15:45)
[2017-09-16] MEDS ORDERED: POTASSIUM CHLOR 20 MEQ PREMIX 100 ML IV ONE (16:00)
[2017-09-16] MEDS ORDERED: POTASSIUM CHLOR 40 MEQ PREMIX 100 ML IV ONE (16:15)
[2017-09-16] MEDS: MAGNESIUM SULFATE 1 GM PREMIX 100 ML IV SCH ×2 (17:29→18:13)
[2017-09-16] MEDS ORDERED: LABETALOL HCL 100 MG/20 ML VIAL IV ONE (17:45)
[2017-09-16] MEDS: MULTIVITAMIN INJ 10 ML, FOLIC ACID INJ 1 MG, INSULIN HUMAN REGULAR INJ 40 UNITS in AMIN... IV-CENTRAL SCH (20:57)
[2017-09-16] MEDS: ARTIFICIAL TEARS OPTH SOLN 15 ML BTL EACH EYE SCH (20:58)
[2017-09-17] VITALS (18 sets, daily range): BP systolic 97–163; BP diastolic 57–76; PULSE 78–104; RESP 12–22; TEMP 98.6–99.3; O2SAT 95–98
[2017-09-17] MEDS: INSULIN ASPART SUPPLEMENTAL SCALE SQ SCH ×4 (00:34→18:00)
[2017-09-17] MEDS: ALBUMIN 25% INJ 100 ML IV SCH ×3 (00:34→15:00)
[2017-09-17] MEDS: metroNIDAZOLE 500 MG INJ 100 ML IV SCH ×4 (03:16→20:51)
[2017-09-17] MEDS: RESP: ALBUTEROL 2.5 MG/IPRATROPIUM 0.5 MG NEB (SCH) NEB ×4 (04:45→21:04)
[2017-09-17 05:25] LABS: HEMATOCRIT 26.7 % (35.0-46.0); MEAN CELL VOLUME 89.2 FL (80.0-100.0); MEAN CORPUSCULAR HEMOGLOBIN 28.9 PG (27.0-34.0); MEAN CORPUSCULAR HGB CONC 32.4 % (32.0-36.0); PLATELET COUNT 155 TH/MM3 (150-450); RED BLOOD COUNT 2.99 MIL/MM3 (4.00-5.30); RED CELL DISTRIBUTION WIDTH 17.2 % (11.6-17.2); REVIEW FLAG FINAL; WHITE BLOOD COUNT 13.5 TH/MM3 (4.0-11.0)
[2017-09-17 05:38] LABS: BICARBONATE 35.5 MEQ/L (21.0-32.0)
[2017-09-17 05:44] LABS: POTASSIUM 2.9 MEQ/L (3.5-5.1)
[2017-09-17] MEDS: LEVOTHYROXINE SODIUM 100 MCG VIAL IV PUSH SCH (06:43)
[2017-09-17] MEDS: HYDROCORTISONE SOD SUCCINATE 100 MG VIAL IV PUSH SCH (06:43)
[2017-09-17] MEDS: ENOXAPARIN SODIUM 30 MG/0.3 ML SYRINGE SQ SCH (06:44)
[2017-09-17] MEDS: FUROSEMIDE INJ 100 MG in SODIUM CHLORIDE 0.9% INJ 90 ML IV SCH (07:51)
[2017-09-17] MEDS: CHLORHEXIDINE 0.12% (ORAL KIT) 15 ML CUP MT SCH ×2 (08:00→20:51)
--- NOTE | 2017-09-17 08:22 | HHI.CCPN ---
Subjective Remarks/Hospital Course 61-year-old morbidly obese female presents, patient of Dr. Epstein, status post gastric sleeve 08-22-17 now presents with nonbloody emesis and unable to have a bowel movement for a couple days. She states to get that bowel movement she had a use a glycerin suppository and it was just loose. He was taken emergently to operating room and was found to have a small bowel ischemia. She underwent laparoscopic small bowel resection by Dr. Epstein and is postoperatively admitted to critical care unit SUBJ 09/09/17: Remains very critically ill. Profound septic shock requiring Levophed at 40 mcg/m, Des-Synephrine at 500 mcg/m, vasopressin at 0.04 international units, and to be demand 5 g per KG per minute. Urine output 150 mL overnight. Maintaining oxygen saturation. A.m. labs are pending at this time. Surprisingly patient is still mentating able to communicate. Remains on IV fentanyl infusion for pain control. Operative report is pending at this time. Received total of 9 L of crystalloid postoperatively. Receiving 2 units of PRBC. I will replace calcium. Lactic acid 3.5 at 4 AM 09/10: Critically ill but stable. Levophed down to 12 mcg/min, vasopressin at 0.04 IU. Uo 650 ml in 24 hours, bilateral abdominal drains with 1 L output. Right drain had greenish output overnight and now serosanguineous. D/ W Dr Epstein- he confirms perforation and gross contamination 09/11: Remains critically. FiO2 requirement up to 60%, I have increased PEEP to 10. CXR consistent with ARDS versus fluid overload. Creatinine increased to 1.24. Urine output 600 ml in 24 hours. CVP 18-20. Start IV Bumex 1 mg every 12 hours with additional 1 mg dose now. Levophed at 1 mcg/min, vasopressin at 0.04 IU 09/12: remains critically ill but stable to improving. SBP 130-140 on vasopressin will DC vasopressin. Chest x-ray shows bilateral pulmonary edema, but oxygenation has improved. Stable on 50% and PEEP of 10. Creatinine has worsened to 1.67 but urine output 1.5 L in 24 hours with Bumex. CVP remains about 20. Will increase Bumex to 1 mg every 8 hours and give additional 1 mg now. Closely monitor creatinine. 09/13: Weaning off vasopressors. SHEA persists. CXR with diffuse infiltrates , will switch modes for better recruitment hopefully. 09/14: Gas exchange improved on APRV. Renal function deteriorating. Remains fluid overloaded. 09/15: Gas exchange improved but renal function continues to deteriorate. Continue APRV - bases struggle for domain. 09/16: remains fairly encephalopathic, likely hypoactive delirium. renal function still worse today, although ? peaked?. continue APRV: body habitus would make de-recruitment almost certain if we switch to conventional mode of ventilation. still diuresing well. 09/17: creatinine continues to worsen despite adequate diuresis. BP lower today. will hold lasix drip. off all sedation x 12h and still remains encephalopathic, not following commands. may need renal replacement therapy at some point. severe electrolyte derrangements due to diuresis, and free water deficit. Objective Vital Signs Date Time Temp Pulse Resp B/P (MAP) Pulse Ox O2 Delivery O2 Flow Rate FiO2 09/17/17 07:58 97 35 09/17/17 06:00 101 09/17/17 04:00 99.1 21 162/76 (104) 09/15/17 07:00 Mechanical Ventilator Intake and Output 09/17/17 09/17/17 09/18/17 08:00 16:00 00:00 Intake Total 1064 ml Output Total 5680 ml Balance -4616 ml Result Diagram: 09/17/17 0500 09/17/17 0500 Objective Remarks GENERAL: morbidly Obese, edematous female encephalopathic and intubated. SKIN: Warm and dry. HEAD: Normocephalic. EYES: No scleral icterus. No injection or drainage. NECK: trachea midline. Orotracheally intubated CARDIOVASCULAR: normal rate, regular rhythm. Heart sounds distant. JVD difficult to assess due to body habitus. RESPIRATORY: Breath sounds equal bilaterally, with bilateral crackles. Decreased bases. APRV, 35% fio2. GASTROINTESTINAL: Abdomen soft, tender, distended. Morbidly obese. MUSCULOSKELETAL: No cyanosis, or edema. Well perfused. 3+ edema, diffuse. NEURO EXAM: Unresponsive, intubated, not following commands but withdraws all extremities. Pupils are round, reactive to light. A/P Assessment and Plan Assessment: 61yF s/p gastric bypass complicated by small bowel obstruction, intra-abdominal sepsis, persistent respiratory failure, volume overload. remains off pathway. hypoactive delirium/encephalopathy persists despite being off sedation. SHEA continues to worsen although adequate diuresis. will slow diuresis further and hold lasix drip for now given electrolyte derrangements and hypotension. aggressively replace electrolytes. no improvement in multiple organ dysfunction. remains complex and off pathway. A/P: NEURO: Seizure disorder Metabolic encephalopathy Hypoactive Delirium - Currently off all sedation - Keppra IV. - hold sedating meds - fentanyl prn for positioning. - haldol for agitation - provigil for wakefulness. RESP: Acute hypoxemic respiratory failure - persistent. ARDS HCAP with E Coli - Continue mechanical ventilation/APRV mode, keep peak pressure <35 considering morbid obesity, Wean FiO2 and PEEP keeping SaO2> 90% - No weaning until hemodynamically stable, CXR improved - ABG, CXR daily, Vent bundle - DuoNeb every 6 hours scheduled and when necessary - Diuresis as below - Bilateral pulmonary opacities, fluid overload and acute lung injury/ARDS will need to consider tracheostomy if no significant improvements in next few days. CVS: Septic shock-resolved. Lactic acidosis - resolved. - s/p Aggressive IV fluid resuscitation, postop received 9 L of normal saline, 2 units of PRBC - hold lasix drip for now. may need to restart later. - Hydrocortisone stress dose-start weaning 09/13 - now 25 tid, continue weaning to off over next 72h. GI: Small bowel ischemia/Perforation Peritonitis - POD # 9 S/P Laparoscopic SBR for gangrenous small bowel - Post op surgical management per Dr. Epstein general surgery - NPO, IV Protonix. Started TPN 09/10/17 FEN: Hypernatremia Free water deficit Hypokalemia Hypomagnesemia - aggressive electrolyte replacement - add d5w @ 42cc/hr for free water replacement - recheck electrolytes. : Acute kidney failure - worsening. Contraction alkalosis - ATN most likely from severe septic shock - hold lasix drip - Maintain Bedolla for accurate intake output - continue diamox 500mg iv q8h x 3 doses for alkalosis. HEME: Anemia secondary to acute blood loss - s/p 2 units of PRBC, transfuse to keep Hb >7.5 - Monitor H&H - Drop in platelet most likely sepsis, now improving. - Transfuse one unit rbc ID: Septic shock - resolved. Peritonitis HCAP with E Coli - Broad-spectrum antibiotic - Flagyl, Diflucan, cefepime. - Sputum culture E Coli - Blood cultures, urine culture follow up - ID following ENDO: Diabetes mellitus Hypocalcemia - Insulin sliding scale, and IV insulin with TPN - Electrolyte replacement per protocol - Continue levemir bid DVT GI prophylaxis - Teds SCDs - Pharmacological DVT prophylaxis Lovenox 40 mg subcutaneous every 12- reduced to 40 qd due to worsening creatinine - Protonix D/W Dr. Hernandez, and updated sister at bedside Overall impression: Remains critically ill with persistent ARDS, severe hypoxemia and worsening acute kidney injury. Glucose control acceptable. Saroj Hill MD Sep 17, 2017 08:21
[2017-09-17] MEDS: CEFEPIME INJ 2,000 MG in SODIUM CHLORIDE 0.9% INJ 100 ML IV SCH (08:23)
[2017-09-17] MEDS: ARTIFICIAL TEARS OPTH SOLN 15 ML BTL EACH EYE SCH ×3 (08:27→18:00)
[2017-09-17] MEDS: MAGNESIUM SULFATE 1 GM PREMIX 100 ML IV SCH ×2 (08:47→10:00)
[2017-09-17] MEDS: DEXTROSE 5% IN WATE 1000ML INJ 1,000 ML IV SCH (08:49)
[2017-09-17] MEDS: SODIUM CHLORIDE 0.9% FLUSH 10 ML FLUSH IV FLUSH SCH ×2 (08:49→20:51)
[2017-09-17] MEDS: PANTOPRAZOLE SODIUM 40 MG VIAL IV PUSH SCH (08:52)
[2017-09-17] MEDS: INSULIN DETEMIR 100 UNITS/ML VIAL SQ SCH ×2 (09:00→20:51)
[2017-09-17] MEDS: MODAFINIL 200 MG TAB PO SCH (09:00)
[2017-09-17] MEDS: levETIRAcetam INJ 500 MG in SODIUM CHLORIDE 0.9% INJ 100 ML IV SCH ×2 (09:51→20:51)
[2017-09-17] MEDS: POTASSIUM CHLOR 40 MEQ PREMIX 100 ML IV SCH ×2 (10:00→13:23)
--- NOTE | 2017-09-17 12:27 | HHI.NPPN ---
Subjective History of Present Illness Patient is a 61-year-old morbidly obese female who underwent gastric sleeve operation earlier this month on 08/23/17, patient has obstructive symptoms she was admitted and then as been doing well until Thanks when she developed the abdominal pain nausea vomiting and patient has been brought her back to the emergency. She had diagnoses of peritonitis, bowel obstruction, septic shock. Underwent surgical bowel resection due to perforation currently intubated Additional Remarks Patient remain intubated and sedated, clinically same. Objective Data Data 09/17/17 09/18/17 19:00 07:00 Intake Total 100 ml Balance 100 ml IV Total 100 ml Vital Signs Date Time Temp Pulse Resp B/P (MAP) Pulse Ox O2 Delivery O2 Flow Rate FiO2 09/17/17 10:57 97 35 09/17/17 10:00 89 09/17/17 08:00 91 09/17/17 08:00 35 09/17/17 08:00 98.9 98 15 98/57 (71) 97 09/17/17 07:58 97 35 09/17/17 06:00 101 09/17/17 04:45 97 35 09/17/17 04:00 35 09/17/17 04:00 99.1 90 21 162/76 (104) 98 09/17/17 04:00 90 09/17/17 02:00 101 09/17/17 00:12 97 35 09/17/17 00:00 35 09/17/17 00:00 102 09/17/17 00:00 99.3 102 22 154/71 (98) 97 09/16/17 22:00 99 09/16/17 21:48 97 35 09/16/17 20:00 100 09/16/17 20:00 35 09/16/17 20:00 99.1 100 18 165/79 (107) 97 09/16/17 18:00 89 09/16/17 16:06 97 35 09/16/17 16:00 35 09/16/17 16:00 98.0 90 18 161/71 (101) 98 09/16/17 16:00 90 09/16/17 14:00 70 -: 09/17/17 0500 09/17/17 0500 Physical Exam General Appearance Remarks Intubated and sedated. Neck Neck Exam: Neck Supple Pulmonary Resp Exam: Crackles, Rhonchi, Decreased Bases, Diminished Breath Sounds, Poor Inspiratory Effort Cardiology CV Exam: Regular Gastrointestinal/Abdomen GI Exam: Soft, Non-Tender, Distended, Bowel Sounds Absent Extremeties Extremities Exam: Pitting Edema, Dependent Edema Neurologic Neuro Exam: Sedated Assessment/Plan Problem List: (1) Acute renal failure ICD Codes: N17.9 - Acute kidney failure, unspecified Plan: Patient was in septic shock and now recovering patient is responding to Lasix drip at 10 mg /hr Avoid nephrotoxic medications Creatinine increasing. K is low and replaced. Stopping diuretics, Diamox for met. alkalosis. Follow the urine out put and BMP. D/W the at bed side. (2) Small bowel obstruction ICD Codes: K56.609 - Unspecified intestinal obstruction, unspecified as to partial versus complete obstruction Status: Acute Plan: Status post surgical intervention (3) Ileus following gastrointestinal surgery ICD Codes: K91.30 - Postprocedural intestinal obstruction, unspecified as to partial versus complete Plan: Continue to monitor Steph Akers MD Sep 17, 2017 12:27
--- NOTE | 2017-09-17 14:24 | HHI.IDPN ---
Subjective Subjective Remarks ID x cover no fever BP stable drain clx NGTD agressive diauresis > 8 L Still no BM Antibiotics cefepime flagyl Allergies: Coded Allergies: propoxyphene (Unverified Allergy, Intermediate, HALLUCINATIONS, 08/23/17) Uncoded Allergies: ADHESIVE TAPE (Allergy, Intermediate, PULLS SKIN OFF, 09/20/13) DARVOCET-HALLUCINATIONS; (Allergy, Unknown, 06/24/03) Objective . Vital Signs Date Time Temp Pulse Resp B/P (MAP) Pulse Ox O2 Delivery O2 Flow Rate FiO2 09/17/17 12:00 95 09/17/17 12:00 35 09/17/17 12:00 98.8 95 12 143/69 (93) 95 09/17/17 10:57 97 35 09/17/17 10:00 89 09/17/17 08:00 91 09/17/17 08:00 35 09/17/17 08:00 98.9 98 15 98/57 (71) 97 09/17/17 07:58 97 35 09/17/17 06:00 101 09/17/17 04:45 97 35 09/17/17 04:00 35 09/17/17 04:00 99.1 90 21 162/76 (104) 98 09/17/17 04:00 90 09/17/17 02:00 101 09/17/17 00:12 97 35 09/17/17 00:00 35 09/17/17 00:00 102 09/17/17 00:00 99.3 102 22 154/71 (98) 97 09/16/17 22:00 99 09/16/17 21:48 97 35 09/16/17 20:00 100 09/16/17 20:00 35 09/16/17 20:00 99.1 100 18 165/79 (107) 97 09/16/17 18:00 89 09/16/17 16:06 97 35 09/16/17 16:00 35 09/16/17 16:00 98.0 90 18 161/71 (101) 98 09/16/17 16:00 90 09/17/17 09/17/17 09/18/17 15:00 23:00 07:00 Intake Total 100 ml Balance 100 ml IV Total 100 ml . Laboratory Tests Test 09/15/17 17:00 09/16/17 05:00 09/17/17 05:00 Hemoglobin 8.1 GM/DL 8.6 GM/DL 8.6 GM/DL Hematocrit 24.5 % 25.6 % 26.7 % White Blood Count 12.9 TH/MM3 13.5 TH/MM3 Red Blood Count 2.91 MIL/MM3 2.99 MIL/MM3 Mean Corpuscular Volume 88.0 FL 89.2 FL Mean Corpuscular Hemoglobin 29.7 PG 28.9 PG Mean Corpuscular Hemoglobin Concent 33.8 % 32.4 % Red Cell Distribution Width 16.6 % 17.2 % Platelet Count 136 TH/MM3 155 TH/MM3 Mean Platelet Volume 9.0 FL 8.5 FL Neutrophils (%) (Auto) 89.6 % Lymphocytes (%) (Auto) 7.6 % Monocytes (%) (Auto) 2.6 % Eosinophils (%) (Auto) 0.1 % Basophils (%) (Auto) 0.1 % Neutrophils # (Auto) 11.6 TH/MM3 Lymphocytes # (Auto) 1.0 TH/MM3 Monocytes # (Auto) 0.3 TH/MM3 Eosinophils # (Auto) 0.0 TH/MM3 Basophils # (Auto) 0.0 TH/MM3 CBC Comment AUTO DIFF Differential Total Cells Counted 100 Neutrophils % (Manual) 86 % Band Neutrophils % 3 % Lymphocytes % 7 % Monocytes % 3 % Neutrophils # (Manual) 11.6 TH/MM3 Metamyelocytes 1 % Differential Comment FINAL DIFF MANUAL Platelet Estimate LOW Platelet Morphology Comment NORMAL Red Cell Morphology Comment NORMAL Laboratory Tests Test 09/15/17 17:00 09/16/17 05:00 09/16/17 22:41 09/17/17 05:00 Potassium Level 3.2 MEQ/L 3.1 MEQ/L 3.0 MEQ/L 2.9 MEQ/L Blood Urea Nitrogen 92 MG/DL 113 MG/DL Creatinine 2.88 MG/DL 3.06 MG/DL Random Glucose 191 MG/DL 155 MG/DL Total Protein 5.9 GM/DL Albumin 3.5 GM/DL Calcium Level 8.4 MG/DL 8.7 MG/DL Alkaline Phosphatase 293 U/L Aspartate Amino Transf (AST/SGOT) 19 U/L Alanine Aminotransferase (ALT/SGPT) 24 U/L Total Bilirubin 0.8 MG/DL Direct Bilirubin 0.4 MG/DL Sodium Level 146 MEQ/L 147 MEQ/L Chloride Level 105 MEQ/L 104 MEQ/L Carbon Dioxide Level 32.7 MEQ/L 35.5 MEQ/L Anion Gap 8 MEQ/L 8 MEQ/L Estimat Glomerular Filtration Rate 17 ML/MIN 16 ML/MIN Indirect Bilirubin 0.4 MG/DL Prealbumin 17 MG/DL Microbiology Date/Time Source Procedure Growth Status 09/15/17 08:31 Wound Abdomen Gram Stain - Final Resulted 09/15/17 08:31 Wound Abdomen Wound Culture - Preliminary NO GROWTH IN 48 HOURS. Resulted Imaging Last Impressions Chest X-Ray 09/15/17 0000 Signed Impressions: Service Date/Time: Friday, September 15, 2017 04:17 - CONCLUSION: Stable chest x-ray with bilateral mid and lower lung zone airspace opacities. Damian Bedolla MD Abdomen Fluoroscopy 09/08/17 0000 Signed Impressions: Service Date/Time: Friday, September 08, 2017 12:04 - CONCLUSION: Uncomplicated nasogastric tube placement as above. Tae Archuleta Jr., MD Abdomen/Pelvis CT 09/07/17 0000 Signed Impressions: Service Date/Time: August 12:20 - CONCLUSION: 1. Small bowel obstruction with transition point in the lower abdomen adjacent to an area of indurated mesentery. 2. Marked dilation of the intrahepatic biliary system , up to 2.2 cm, and some mild distention of the intrahepatic biliary system. Differential considerations include a distal biliary obstruction and reservoir effect from prior cholecystectomy. Tae Roblero MD Physical Exam CONSTITUTIONAL/GENERAL: This is a morbidly obese patient, in no apparent distress. Intubated, on vent TUBES/LINES/DRAINS: SKIN: No jaundice, rashes, or lesions. Skin temperature appropriate. Not diaphoretic. EYES: Pupils equal and round and reactive. Extraocular motions intact. No scleral icterus. No injection or drainage. Fundi not examined. CARDIOVASCULAR: Regular rate and rhythm without murmurs, gallops, or rubs. No JVD. Peripheral pulses symmetric. RESPIRATORY/CHEST: Symmetric, unlabored respirations. Clear to auscultation. Breath sounds equal bilaterally. No wheezes, rales, or rhonchi. GASTROINTESTINAL: Abdomen soft, non-tender, obese nondistended, edematous . JPs x [address] with serous driqnage Unable to appreciate hepato-splenomegaly, or palpable masses. Bowel sounds are not audible, GENITOURINARY: Without palpable bladder distension. Bedolla catheter in place. MUSCULOSKELETAL: Extremities without clubbing, cyanosis, + prominent edema. . NEUROLOGICAL:Sedated PSYCHIATRIC: unable to assess Assessment & Plan Remarks IMPRESSION 1. Septic shock with multi organ disfunction sd (acute VDRF, ARF) 2. Post exploratory laparotomy and small bowel resection along with lysis of adhesions for small bowel perforation. POD # 6: still no BM; WBC 13K 3. Peritonitis due to due to small bowel perforation. 4. Acute respiratory failure. 5. VAP gram negative. E. coli. 6. Acute kidney disease. ? sepsis related. ? medication. ? diuresis - worsening ceratining Leukocytosis - improving RECOMMENDATIONS 1. Continue Cefepime 2. Continue Metronidazole 3. Continue Fluconazole 4. Monitor abdominal drainage clx 5. Avoid nephrotoxic meds. 6. fu WBC dw pt's family @ b/s Alicja Murillo RN, Dr, MD Sep 17, 2017 14:24
[2017-09-17 18:02] LABS: POTASSIUM 3.4 MEQ/L (3.5-5.1)
[2017-09-17 18:03] LABS: MAGNESIUM 2.9 MG/DL (1.5-2.5)
[2017-09-17] MEDS ORDERED: POTASSIUM CHLOR 20 MEQ PREMIX 100 ML ONE (18:06)
[2017-09-17] MEDS ORDERED: POTASSIUM CHLORIDE 20 MEQ CONTROLLED RELEASE TAB PO ONE (18:15)
[2017-09-17] MEDS: POTASSIUM CHLORIDE 30 MEQ/NS 100 ML IV-CENTRAL SCH ×6 (19:00→23:48)
--- NOTE | 2017-09-17 20:44 | HHI.PR ---
Subjective Subjective Notes remains on vent, still with minimal movement, high uop with lasix Objective Vitals/I&O Vital Signs Date Time Temp Pulse Resp B/P (MAP) Pulse Ox O2 Delivery O2 Flow Rate FiO2 09/17/17 18:00 99 09/17/17 16:00 35 09/17/17 16:00 98.6 15 163/71 (101) 97 09/15/17 07:00 Mechanical Ventilator Labs Laboratory Tests Test 09/16/17 22:41 09/17/17 05:00 09/17/17 17:30 Potassium Level 3.0 2.9 3.4 White Blood Count 13.5 Red Blood Count 2.99 Hemoglobin 8.6 Hematocrit 26.7 Mean Corpuscular Volume 89.2 Mean Corpuscular Hemoglobin 28.9 Mean Corpuscular Hemoglobin Concent 32.4 Red Cell Distribution Width 17.2 Platelet Count 155 Mean Platelet Volume 8.5 Blood Urea Nitrogen 113 Creatinine 3.06 Random Glucose 155 Calcium Level 8.7 Sodium Level 147 Chloride Level 104 Carbon Dioxide Level 35.5 Anion Gap 8 Estimat Glomerular Filtration Rate 16 Prealbumin 17 Magnesium Level 2.9 Date/Time Source Procedure Growth Status 09/10/17 08:30 Blood Peripheral Aerobic Blood Culture - Final NO GROWTH IN 5 DAYS Complete 09/10/17 08:30 Blood Peripheral Anaerobic Blood Culture - Final NO GROWTH IN 5 DAYS Complete 09/08/17 21:10 Sputum Oral Tracheal Aspirate Gram Stain - Final Complete 09/08/17 21:10 Sputum Culture - Final Escherichia Coli Complete 09/09/17 09:45 Urine Clean Catch Urine Culture - Final NO GROWTH IN 48 HOURS. Complete 09/15/17 08:31 Wound Abdomen Gram Stain - Final Resulted 09/15/17 08:31 Wound Abdomen Wound Culture - Preliminary NO GROWTH IN 48 HOURS. Resulted Radiology Last Impressions Chest X-Ray 09/15/17 0000 Signed Impressions: Service Date/Time: Friday, September 15, 2017 04:17 - CONCLUSION: Stable chest x-ray with bilateral mid and lower lung zone airspace opacities. Damian Bedolla MD Abdomen Fluoroscopy 11/24/17 0000 Signed Impressions: Service Date/Time: Friday, September 08, 2017 12:04 - CONCLUSION: Uncomplicated nasogastric tube placement as above. Tae Archuleta Jr., MD Abdomen/Pelvis CT 09/07/17 0000 Signed Impressions: Service Date/Time: August 12:20 - CONCLUSION: 1. Small bowel obstruction with transition point in the lower abdomen adjacent to an area of indurated mesentery. 2. Marked dilation of the intrahepatic biliary system , up to 2.2 cm, and some mild distention of the intrahepatic biliary system. Differential considerations include a distal biliary obstruction and reservoir effect from prior cholecystectomy. Tae Roblero MD Abdomen: Other (soft incison well approximated david serous) A/P Assessment and Plan 61yo F with small bowel perforation and peritonitis s/p lap washout bowel resection -Worsening kidney function consider hemodialysis defer to nephro -ISC for vent support -Will continue with TPN will check prealbumin - continue close monitoring, ISC following holding lasix today dvt ppx - sepulveda for Is and Os Julian Preciado MD Sep 17, 2017 20:44
[2017-09-17] MEDS: MULTIVITAMIN INJ 10 ML, FOLIC ACID INJ 1 MG, INSULIN HUMAN REGULAR INJ 40 UNITS in AMIN... IV-CENTRAL SCH (20:53)
[2017-09-18] VITALS (19 sets, daily range): BP systolic 120–173; BP diastolic 56–73; PULSE 74–100; RESP 18–23; TEMP 98–99.1; O2SAT 97–100
[2017-09-18] MEDS: INSULIN ASPART SUPPLEMENTAL SCALE SQ SCH ×4 (00:33→18:51)
[2017-09-18] MEDS: ALBUMIN 25% INJ 100 ML IV SCH ×3 (00:33→16:08)
[2017-09-18] MEDS: metroNIDAZOLE 500 MG INJ 100 ML IV SCH ×2 (02:51→09:46)
[2017-09-18] MEDS: RESP: ALBUTEROL 2.5 MG/IPRATROPIUM 0.5 MG NEB (SCH) NEB ×4 (04:13→21:08)
[2017-09-18 05:31] LABS: BICARBONATE 30.8 MEQ/L (21.0-32.0); POTASSIUM 3.4 MEQ/L (3.5-5.1)
[2017-09-18] MEDS: LEVOTHYROXINE SODIUM 100 MCG VIAL IV PUSH SCH (06:10)
[2017-09-18] MEDS: ENOXAPARIN SODIUM 30 MG/0.3 ML SYRINGE SQ SCH (06:10)
[2017-09-18 07:47] LABS: CRITICAL VALUE YES
[2017-09-18] MEDS: CHLORHEXIDINE 0.12% (ORAL KIT) 15 ML CUP MT SCH ×2 (09:00→20:23)
[2017-09-18] MEDS: CEFEPIME INJ 2,000 MG in SODIUM CHLORIDE 0.9% INJ 100 ML IV SCH (09:00)
[2017-09-18] MEDS: ARTIFICIAL TEARS OPTH SOLN 15 ML BTL EACH EYE SCH ×3 (09:00→18:51)
[2017-09-18] MEDS: MODAFINIL 200 MG TAB PO SCH (09:00)
[2017-09-18] MEDS: SODIUM CHLORIDE 0.9% FLUSH 10 ML FLUSH IV FLUSH SCH ×2 (09:30→20:24)
[2017-09-18] MEDS: levETIRAcetam INJ 500 MG in SODIUM CHLORIDE 0.9% INJ 100 ML IV SCH ×2 (09:30→20:22)
[2017-09-18] MEDS: PANTOPRAZOLE SODIUM 40 MG VIAL IV PUSH SCH (09:49)
[2017-09-18] MEDS: HYDROCORTISONE SOD SUCCINATE 100 MG VIAL IV PUSH SCH (09:49)
[2017-09-18] MEDS: INSULIN DETEMIR 100 UNITS/ML VIAL SQ SCH ×2 (10:00→20:24)
--- NOTE | 2017-09-18 10:44 | HHI.IDPN ---
Subjective Subjective Remarks ID x cover no fever BP stable drain clx NGTD off lasix, creatinine stable remains on vent, biphasic, no secretions Still no BM On TPN not waking up off sedation Antibiotics cefepime flagyl Allergies: Coded Allergies: propoxyphene (Unverified Allergy, Intermediate, HALLUCINATIONS, 08/23/17) Uncoded Allergies: ADHESIVE TAPE (Allergy, Intermediate, PULLS SKIN OFF, 09/20/13) DARVOCET-HALLUCINATIONS; (Allergy, Unknown, 06/24/03) Objective . Vital Signs Date Time Temp Pulse Resp B/P (MAP) Pulse Ox O2 Delivery O2 Flow Rate FiO2 09/18/17 08:47 98 Ventilator 35 09/18/17 08:47 98 35 09/18/17 06:00 93 09/18/17 04:14 98 35 09/18/17 04:00 94 09/18/17 04:00 98.7 94 21 161/72 (101) 98 09/18/17 04:00 35 09/18/17 02:00 96 09/18/17 00:42 97 35 09/18/17 00:00 35 09/18/17 00:00 100 09/18/17 00:00 99.1 100 21 173/73 (106) 97 09/17/17 22:00 104 09/17/17 21:04 96 35 09/17/17 20:00 78 09/17/17 20:00 99.3 78 21 97/65 (76) 97 09/17/17 20:00 35 09/17/17 18:00 99 09/17/17 16:00 35 09/17/17 16:00 100 09/17/17 16:00 98.6 89 15 163/71 (101) 97 09/17/17 15:53 97 35 09/17/17 14:00 96 09/17/17 12:00 95 09/17/17 12:00 35 09/17/17 12:00 98.8 95 12 143/69 (93) 95 09/17/17 10:57 97 35 . Laboratory Tests Test 09/17/17 05:00 White Blood Count 13.5 TH/MM3 Red Blood Count 2.99 MIL/MM3 Hemoglobin 8.6 GM/DL Hematocrit 26.7 % Mean Corpuscular Volume 89.2 FL Mean Corpuscular Hemoglobin 28.9 PG Mean Corpuscular Hemoglobin Concent 32.4 % Red Cell Distribution Width 17.2 % Platelet Count 155 TH/MM3 Mean Platelet Volume 8.5 FL Laboratory Tests Test 09/16/17 22:41 09/17/17 05:00 09/17/17 17:30 09/18/17 04:42 Potassium Level 3.0 MEQ/L 2.9 MEQ/L 3.4 MEQ/L 3.4 MEQ/L Blood Urea Nitrogen 113 MG/DL 128 MG/DL Creatinine 3.06 MG/DL 3.04 MG/DL Random Glucose 155 MG/DL 169 MG/DL Calcium Level 8.7 MG/DL 8.4 MG/DL Sodium Level 147 MEQ/L 145 MEQ/L Chloride Level 104 MEQ/L 103 MEQ/L Carbon Dioxide Level 35.5 MEQ/L 30.8 MEQ/L Anion Gap 8 MEQ/L 11 MEQ/L Estimat Glomerular Filtration Rate 16 ML/MIN 16 ML/MIN Prealbumin 17 MG/DL Magnesium Level 2.9 MG/DL Imaging Last Impressions Chest X-Ray 09/15/17 0000 Signed Impressions: Service Date/Time: Friday, September 15, 2017 04:17 - CONCLUSION: Stable chest x-ray with bilateral mid and lower lung zone airspace opacities. Damian Bedolla MD Abdomen Fluoroscopy 09/08/17 0000 Signed Impressions: Service Date/Time: Friday, September 08, 2017 12:04 - CONCLUSION: Uncomplicated nasogastric tube placement as above. Tae Archuleta Jr., MD Abdomen/Pelvis CT 09/07/17 0000 Signed Impressions: Service Date/Time: August 12:20 - CONCLUSION: 1. Small bowel obstruction with transition point in the lower abdomen adjacent to an area of indurated mesentery. 2. Marked dilation of the intrahepatic biliary system , up to 2.2 cm, and some mild distention of the intrahepatic biliary system. Differential considerations include a distal biliary obstruction and reservoir effect from prior cholecystectomy. Tae Roblero MD Physical Exam CONSTITUTIONAL/GENERAL: This is a morbidly obese patient, in no apparent distress. Intubated, on vent TUBES/LINES/DRAINS: SKIN: No jaundice, rashes, or lesions. Skin temperature appropriate. Not diaphoretic. EYES: Pupils equal and round and reactive. Extraocular motions intact. No scleral icterus. No injection or drainage. Fundi not examined. CARDIOVASCULAR: Regular rate and rhythm without murmurs, gallops, or rubs. No JVD. Peripheral pulses symmetric. RESPIRATORY/CHEST: Symmetric, unlabored respirations. Clear to auscultation. Breath sounds equal bilaterally. No wheezes, rales, or rhonchi. GASTROINTESTINAL: Abdomen soft, non-tender, obese nondistended, edematous . JPs x [address] with serous driqnage Unable to appreciate hepato-splenomegaly, or palpable masses. Bowel sounds are not audible, GENITOURINARY: Without palpable bladder distension. Bedolla catheter in place. MUSCULOSKELETAL: Extremities without clubbing, cyanosis, much improved edema. . NEUROLOGICAL:not sedated; withdrawls to pain all 4 extremeties PSYCHIATRIC: unable to assess Assessment & Plan Remarks IMPRESSION 1. Septic shock with multi organ disfunction sd (acute VDRF, ARF) 2. Post exploratory laparotomy and small bowel resection along with lysis of adhesions for small bowel perforation. POD # 6: still no BM; WBC 13K 3. Peritonitis due to due to small bowel perforation. 4. Acute respiratory failure. 5. VAP gram negative. E. coli. 6. Acute kidney disease. ? sepsis related. ? medication. ? diuresis - worsening ceratining Leukocytosis - improving RECOMMENDATIONS 1. dc Cefepime, Metronidazole (WAIST PRESSER effectes of flagyl) 2. start zosyn 3. dc Fluconazole 4. Monitor abdominal drainage clx 5. Avoid nephrotoxic meds. 6. fu WBC dw RN dw family @ b/s Alicja Lin MD Sep 18, 2017 10:44
[2017-09-18] MEDS: DEXTROSE 5% IN WATE 1000ML INJ 1,000 ML IV SCH (11:22)
[2017-09-18] MEDS: PIPERACIL-TAZO 2.25 GM PREMIX 50 ML IV SCH ×2 (11:54→20:22)
--- NOTE | 2017-09-18 11:59 | HHI.PR ---
Subjective Subjective Notes remains vented and minimally responsive has been off sedation >24hr Objective Vitals/I&O Vital Signs Date Time Temp Pulse Resp B/P (MAP) Pulse Ox O2 Delivery O2 Flow Rate FiO2 09/18/17 08:47 98 Ventilator 35 09/18/17 06:00 93 09/18/17 04:00 98.7 21 161/72 (101) Labs Laboratory Tests Test 09/17/17 17:30 09/18/17 04:42 Potassium Level 3.4 3.4 Magnesium Level 2.9 Blood Urea Nitrogen 128 Creatinine 3.04 Random Glucose 169 Calcium Level 8.4 Sodium Level 145 Chloride Level 103 Carbon Dioxide Level 30.8 Anion Gap 11 Estimat Glomerular Filtration Rate 16 Date/Time Source Procedure Growth Status 09/10/17 08:30 Blood Peripheral Aerobic Blood Culture - Final NO GROWTH IN 5 DAYS Complete 09/10/17 08:30 Blood Peripheral Anaerobic Blood Culture - Final NO GROWTH IN 5 DAYS Complete 09/08/17 21:10 Sputum Oral Tracheal Aspirate Gram Stain - Final Complete 09/08/17 21:10 Sputum Culture - Final Escherichia Coli Complete 09/09/17 09:45 Urine Clean Catch Urine Culture - Final NO GROWTH IN 48 HOURS. Complete 09/15/17 08:31 Wound Abdomen Gram Stain - Final Complete 09/15/17 08:31 Wound Abdomen Wound Culture - Final NO GROWTH IN 72 HRS.--AEROBICALLY OR ... Complete Radiology Last Impressions Chest X-Ray 09/15/17 0000 Signed Impressions: Service Date/Time: Friday, September 15, 2017 04:17 - CONCLUSION: Stable chest x-ray with bilateral mid and lower lung zone airspace opacities. Damian Bedolla MD Abdomen Fluoroscopy 09/08/17 0000 Signed Impressions: Service Date/Time: Friday, September 08, 2017 12:04 - CONCLUSION: Uncomplicated nasogastric tube placement as above. Tae Archuleta Jr., MD Abdomen/Pelvis CT 09/07/17 0000 Signed Impressions: Service Date/Time: August 12:20 - CONCLUSION: 1. Small bowel obstruction with transition point in the lower abdomen adjacent to an area of indurated mesentery. 2. Marked dilation of the intrahepatic biliary system , up to 2.2 cm, and some mild distention of the intrahepatic biliary system. Differential considerations include a distal biliary obstruction and reservoir effect from prior cholecystectomy. Tae Roblero MD Cardiovascular: Regular Lungs: Clear (diminished bases) Abdomen: Other (rare bowel sounds) Extremities: Perfused Wound Wound : Wound Location: Abdomen Appearance: Clean & Dry (ROSSI drainage remains clear, decreasing in amount) A/P Assessment and Plan 61yo F with small bowel perforation and peritonitis -Worsening kidney function possible peak? -Continue with appropriate weaning of vent support -Ok to clamp NGT, will start trickle feeds Flower Gomez [facility] Sep 18, 2017 11:58
[2017-09-18 12:30] LABS: INDIRECT BILIRUBIN 0.4 MG/DL (0.0-0.8); TOTAL BILIRUBIN ADULT 0.7 MG/DL (0.2-1.0)
--- NOTE | 2017-09-18 13:53 | HHI.NPPN ---
Subjective History of Present Illness Patient is a 61-year-old morbidly obese female who underwent gastric sleeve operation earlier this month on 08/23/17, patient has obstructive symptoms she was admitted and then as been doing well until Thanks when she developed the abdominal pain nausea vomiting and patient has been brought her back to the emergency. She had diagnoses of peritonitis, bowel obstruction, septic shock. Underwent surgical bowel resection due to perforation currently intubated Additional Remarks Patient remain intubated and sedated, clinically same. Objective Data Data 09/18/17 09/19/17 19:00 07:00 Intake Total 2042 ml Balance 2042 ml IV Total 2042 ml Vital Signs Date Time Temp Pulse Resp B/P (MAP) Pulse Ox O2 Delivery O2 Flow Rate FiO2 09/18/17 13:22 98 35 09/18/17 08:47 98 Ventilator 35 09/18/17 08:47 98 35 09/18/17 06:00 93 09/18/17 04:14 98 35 09/18/17 04:00 94 09/18/17 04:00 98.7 94 21 161/72 (101) 98 09/18/17 04:00 35 09/18/17 02:00 96 09/18/17 00:42 97 35 09/18/17 00:00 35 09/18/17 00:00 100 09/18/17 00:00 99.1 100 21 173/73 (106) 97 09/17/17 22:00 104 09/17/17 21:04 96 35 09/17/17 20:00 78 09/17/17 20:00 99.3 78 21 97/65 (76) 97 09/17/17 20:00 35 09/17/17 18:00 99 09/17/17 16:00 35 09/17/17 16:00 100 09/17/17 16:00 98.6 89 15 163/71 (101) 97 09/17/17 15:53 97 35 09/17/17 14:00 96 -: 09/17/17 0500 09/18/17 0442 Physical Exam Neck Neck Exam: Neck Supple Pulmonary Resp Exam: Crackles, Rhonchi, Decreased Bases, Diminished Breath Sounds, Poor Inspiratory Effort Cardiology CV Exam: Regular Gastrointestinal/Abdomen GI Exam: Soft, Non-Tender, Distended, Bowel Sounds Absent Extremeties Extremities Exam: Pitting Edema, Dependent Edema Neurologic Neuro Exam: Sedated Assessment/Plan Problem List: (1) Acute renal failure ICD Codes: N17.9 - Acute kidney failure, unspecified Plan: Patient was in septic shock and now recovering patient is responding to Lasix drip at 10 mg /hr Avoid nephrotoxic medications Creatinine increasing. K is low and replaced. ID changed her to to Zosyn on Lasix drip and received Diamox (2) Small bowel obstruction ICD Codes: K56.609 - Unspecified intestinal obstruction, unspecified as to partial versus complete obstruction Status: Acute Plan: Status post surgical intervention (3) Ileus following gastrointestinal surgery ICD Codes: K91.30 - Postprocedural intestinal obstruction, unspecified as to partial versus complete Plan: Continue to monitor Annita Bond MD Sep 18, 2017 13:53
[2017-09-18 15:10] LABS: BLOOD GAS BASE EXCESS 4.8 mmol/L (-2-2); BLOOD GAS CARBOXYHEMOGLOBIN 1.2 % (0-4); BLOOD GAS HCO3 29 mmol/L (22-26); BLOOD GAS METHEMOGLOBIN 1.5 % (0-2); BLOOD GAS O2 HGB SATURATION 97 % (90-100); BLOOD GAS OXYGEN CONTENT 11.1 Vol % (12.0-20.0); BLOOD GAS PCO2 45 mmHg (38-42); BLOOD GAS PO2 185 mmHg (61-120); BLOOD GAS TOTAL HGB 7.9 G/DL (12.0-16.0); CRITICAL VALUE NO; OXYGEN DEVICE VENTILATOR; TEMP CORR TO 98.6
[2017-09-18 15:11] LABS: DRAW SITE ALINE; FIO2 35 %; VENT SETTINGS APRV
[2017-09-18 15:12] LABS: STAT NO
--- NOTE | 2017-09-18 16:52 | HHI.CCPN ---
Subjective Remarks/Hospital Course 61-year-old morbidly obese female presents, patient of Dr. Epstein, status post gastric sleeve 08-22-17 now presents with nonbloody emesis and unable to have a bowel movement for a couple days. She states to get that bowel movement she had a use a glycerin suppository and it was just loose. He was taken emergently to operating room and was found to have a small bowel ischemia. She underwent laparoscopic small bowel resection by Dr. Epstein and is postoperatively admitted to critical care unit SUBJ 09/09/17: Remains very critically ill. Profound septic shock requiring Levophed at 40 mcg/m, Des-Synephrine at 500 mcg/m, vasopressin at 0.04 international units, and to be demand 5 g per KG per minute. Urine output 150 mL overnight. Maintaining oxygen saturation. A.m. labs are pending at this time. Surprisingly patient is still mentating able to communicate. Remains on IV fentanyl infusion for pain control. Operative report is pending at this time. Received total of 9 L of crystalloid postoperatively. Receiving 2 units of PRBC. I will replace calcium. Lactic acid 3.5 at 4 AM 09/10: Critically ill but stable. Levophed down to 12 mcg/min, vasopressin at 0.04 IU. Uo 650 ml in 24 hours, bilateral abdominal drains with 1 L output. Right drain had greenish output overnight and now serosanguineous. D/ W Dr Epstein- he confirms perforation and gross contamination 09/11: Remains critically. FiO2 requirement up to 60%, I have increased PEEP to 10. CXR consistent with ARDS versus fluid overload. Creatinine increased to 1.24. Urine output 600 ml in 24 hours. CVP 18-20. Start IV Bumex 1 mg every 12 hours with additional 1 mg dose now. Levophed at 1 mcg/min, vasopressin at 0.04 IU 09/12: remains critically ill but stable to improving. SBP 130-140 on vasopressin will DC vasopressin. Chest x-ray shows bilateral pulmonary edema, but oxygenation has improved. Stable on 50% and PEEP of 10. Creatinine has worsened to 1.67 but urine output 1.5 L in 24 hours with Bumex. CVP remains about 20. Will increase Bumex to 1 mg every 8 hours and give additional 1 mg now. Closely monitor creatinine. 09/13: Weaning off vasopressors. SHEA persists. CXR with diffuse infiltrates , will switch modes for better recruitment hopefully. 09/14: Gas exchange improved on APRV. Renal function deteriorating. Remains fluid overloaded. 09/15: Gas exchange improved but renal function continues to deteriorate. Continue APRV - bases struggle for domain. 09/16: remains fairly encephalopathic, likely hypoactive delirium. renal function still worse today, although ? peaked?. continue APRV: body habitus would make de-recruitment almost certain if we switch to conventional mode of ventilation. still diuresing well. 09/17: creatinine continues to worsen despite adequate diuresis. BP lower today. will hold lasix drip. off all sedation x 12h and still remains encephalopathic, not following commands. may need renal replacement therapy at some point. severe electrolyte derrangements due to diuresis, and free water deficit. 09/18: Cr slightly downtrended. mental status still poor. long discussion with family and multiple members updated. remains off sedation. continuing to hold diuresis. Objective Vital Signs Date Time Temp Pulse Resp B/P (MAP) Pulse Ox O2 Delivery O2 Flow Rate FiO2 09/18/17 14:30 99 35 09/18/17 14:00 94 09/18/17 12:00 98.3 23 120/56 (77) 09/18/17 08:47 Ventilator Intake and Output 09/18/17 09/18/17 09/19/17 08:00 16:00 00:00 Intake Total 1591 ml 2042 ml Output Total 1825 ml Balance -234 ml 2042 ml Result Diagram: 09/17/17 0500 09/18/17 0442 Other Results Laboratory Tests Test 09/18/17 14:55 Blood Gas Puncture Site KIANNA Blood Gas Patient Temperature 98.6 Blood Gas HCO3 29 mmol/L (22-26) Blood Gas Base Excess 4.8 mmol/L (-2-2) Blood Gas Oxygen Saturation 97 % (90-100) Arterial Blood pH 7.42 (7.380-7.420) Arterial Blood Partial Pressure CO2 45 mmHg (38-42) Arterial Blood Partial Pressure O2 185 mmHg (61-120) Arterial Blood Oxygen Content 11.1 Vol % (12.0-20.0) Arterial Blood Carboxyhemoglobin 1.2 % (0-4) Arterial Blood Methemoglobin 1.5 % (0-2) Blood Gas Hemoglobin 7.9 G/DL (12.0-16.0) Oxygen Delivery Device VENTILATOR Blood Gas Ventilator Setting APRV Blood Gas Inspired Oxygen 35 % Objective Remarks GENERAL: morbidly Obese, edematous female encephalopathic and intubated. SKIN: Warm and dry. HEAD: Normocephalic. EYES: No scleral icterus. No injection or drainage. NECK: trachea midline. Orotracheally intubated CARDIOVASCULAR: normal rate, regular rhythm. Heart sounds distant. JVD difficult to assess due to body habitus. RESPIRATORY: Breath sounds equal bilaterally, with bilateral crackles. Decreased bases. APRV, 35% fio2. GASTROINTESTINAL: Abdomen soft, tender, distended. Morbidly obese. MUSCULOSKELETAL: No cyanosis, or edema. Well perfused. 3+ edema, diffuse. NEURO EXAM: Unresponsive, intubated, not following commands but withdraws all extremities. Pupils are round, reactive to light. A/P Assessment and Plan Assessment: 61yF s/p gastric bypass complicated by small bowel obstruction, intra-abdominal sepsis, persistent respiratory failure, volume overload. remains off pathway. hypoactive delirium/encephalopathy persists despite being off sedation. SHEA plateaued. continue supportive care. introduced idea of possible trach later this week if no clinical improvements. patient's exam is nonfocal, and unlikely to benefit from radiologic imaging of brain at this present time. remains complex. off pathway. A/P: NEURO: Seizure disorder Metabolic encephalopathy Hypoactive Delirium - Currently off all sedation - Keppra IV. - hold sedating meds - fentanyl prn for positioning. - haldol for agitation - provigil for wakefulness. RESP: Acute hypoxemic respiratory failure - persistent. ARDS HCAP with E Coli - Continue mechanical ventilation/APRV mode, keep peak pressure <35 considering morbid obesity, Wean FiO2 and PEEP keeping SaO2> 90% - No weaning until hemodynamically stable, CXR improved - ABG, CXR daily, Vent bundle - DuoNeb every 6 hours scheduled and when necessary - Bilateral pulmonary opacities, fluid overload and acute lung injury/ARDS will need to consider tracheostomy if no significant improvements in next few days. CVS: Septic shock-resolved. Lactic acidosis - resolved. - s/p Aggressive IV fluid resuscitation, postop received 9 L of normal saline, 2 units of PRBC - hold lasix drip for now. may need to restart later. - Hydrocortisone stress dose-start weaning 09/13 - now 25 daily, taper to complete today. GI: Small bowel ischemia/Perforation Peritonitis - POD # 10 S/P Laparoscopic SBR for gangrenous small bowel - Post op surgical management per Dr. Epstein general surgery - PO feeding per surgery. - IV Protonix. Started TPN 09/10/17 FEN: Hypernatremia Free water deficit Hypokalemia Hypomagnesemia - aggressive electrolyte replacement - continue d5w @ 42cc/hr for free water replacement - recheck electrolytes. : Acute kidney failure - plateaued. Contraction alkalosis - improving. - ATN most likely from severe septic shock - hold lasix drip - Maintain Bedolla for accurate intake output HEME: Anemia secondary to acute blood loss - s/p 2 units of PRBC, transfuse to keep Hb >7.5 - Monitor H&H - Drop in platelet most likely sepsis, now improving. ID: Septic shock - resolved. Peritonitis HCAP with E Coli - Broad-spectrum antibiotic - Flagyl, Diflucan, cefepime. - Sputum culture E Coli - Blood cultures, urine culture follow up - ID following ENDO: Diabetes mellitus Hypocalcemia - Insulin sliding scale, and IV insulin with TPN - Electrolyte replacement per protocol - Continue levemir bid DVT GI prophylaxis - Teds SCDs - Pharmacological DVT prophylaxis Lovenox 40 mg subcutaneous every 12- reduced to 40 qd due to worsening creatinine - Protonix D/W Dr. Hernandez, Overall impression: Remains critically ill with persistent ARDS, severe hypoxemia and acute kidney injury. awaiting mental status improvement. Saroj Hill MD Sep 18, 2017 16:52
--- NOTE | 2017-09-18 18:42 | EKG ---
Date Performed: 09/17/2017 Time Performed: 17:38:28 PTAGE: 61 years EKG: Sinus rhythm with PAC(s). Poor R wave progression - probable normal variant Lateral ST-T changes suggest myocardi al injury/ischemia Low QRS voltages in precordial leads Abnormal ECG NO PREVIOUS TRACING DOCTOR: Shahid Vivar Interpretating Date/Time 09/18/2017 18:40:36
[2017-09-18] MEDS: MULTIVITAMIN INJ 10 ML, FOLIC ACID INJ 1 MG, INSULIN HUMAN REGULAR INJ 40 UNITS in AMIN... IV-CENTRAL SCH (20:23)
[2017-09-19] VITALS (19 sets, daily range): BP systolic 106–168; BP diastolic 52–72; PULSE 71–97; RESP 11–31; TEMP 97.9–98.9; O2SAT 96–100
[2017-09-19] MEDS: ALBUMIN 25% INJ 100 ML IV SCH ×3 (00:01→17:30)
[2017-09-19] MEDS: LABETALOL HCL 100 MG/20 ML VIAL IV PUSH PRN (00:01)
[2017-09-19] MEDS: hydrALAZINE HCL 20 MG/ML VIAL IV PUSH PRN (00:50)
[2017-09-19] MEDS: INSULIN ASPART SUPPLEMENTAL SCALE SQ SCH ×4 (01:46→18:00)
[2017-09-19] MEDS: PIPERACIL-TAZO 2.25 GM PREMIX 50 ML IV SCH ×3 (02:54→20:23)
[2017-09-19] MEDS: RESP: ALBUTEROL 2.5 MG/IPRATROPIUM 0.5 MG NEB (SCH) NEB ×4 (03:30→20:10)
[2017-09-19 04:52] LABS: AUTOMATED NEUTROPHIL # 8.8 TH/MM3 (1.8-7.7); BASOPHIL % 0.5 % (0.0-2.0); EOSINOPHIL # 0.2 TH/MM3 (0-0.4); EOSINOPHIL % 1.5 % (0.0-4.0); HEMATOCRIT 24.5 % (35.0-46.0); HEMO FLAGS DIFF FINAL; LYMPH % 5.9 % (9.0-44.0); LYMPHOCYTE # 0.6 TH/MM3 (1.0-4.8); MEAN CELL VOLUME 89.8 FL (80.0-100.0); MEAN CORPUSCULAR HEMOGLOBIN 28.7 PG (27.0-34.0); NEUT % 88.1 % (16.0-70.0); PLATELET COUNT 176 TH/MM3 (150-450); RED BLOOD COUNT 2.73 MIL/MM3 (4.00-5.30); RED CELL DISTRIBUTION WIDTH 16.8 % (11.6-17.2)
[2017-09-19 05:04] LABS: ALT (GPT) 12 U/L (10-53); ANION GAP 12 MEQ/L (5-15); AST (GOT) 16 U/L (15-37); BICARBONATE 30.2 MEQ/L (21.0-32.0); BLOOD UREA NITROGEN 138 MG/DL (7-18); CHLORIDE 104 MEQ/L (98-107); GLOMERULAR FILTRATION RATE 16 ML/MIN (>89); MAGNESIUM 2.9 MG/DL (1.5-2.5); SODIUM (NA) 146 MEQ/L (136-145)
--- NOTE | 2017-09-19 05:04 | RADRPT ---
EXAM DATE/TIME: 09/19/2017 04:10 [facility] COMPARISON: CHEST SINGLE AP, September 15, 2017, 4:17. INDICATIONS : Short of breath. MEDICAL HISTORY : Rheumatoid arthritis. SURGICAL HISTORY : Gastric sleeve. ENCOUNTER: Subsequent ACUITY: 3 weeks PAIN SCORE: Non-responsive. LOCATION: Bilateral chest FINDINGS: 2 AP supine portable views of the chest were obtained and again demonstrate the endotracheal tube in place with the tip approximately 3 cm above the jb. A nasogastric tube is seen coursing through t he esophagus into the stomach. The right internal jugular central venous line remains in place. There 's been interval improvement in the bilateral pulmonary infiltrates with no definite residual. The he art size remains at the upper limits of normal. CONCLUSION: 1. Interval improvement in bilateral pulmonary infiltrates. 2. The patient remains intubated. Yuri Holt MD on September 19, 2017 at 5:02 Board Certified Radiologist. This report was verified electronically.
[2017-09-19 05:07] LABS: ALKALINE PHOSPHATASE 148 U/L (45-117); TOTAL BILIRUBIN ADULT 0.8 MG/DL (0.2-1.0)
[2017-09-19] MEDS: LEVOTHYROXINE SODIUM 100 MCG VIAL IV PUSH SCH (05:43)
[2017-09-19] MEDS: ENOXAPARIN SODIUM 30 MG/0.3 ML SYRINGE SQ SCH (05:44)
[2017-09-19] MEDS: POTASSIUM CHLOR 40 MEQ PREMIX 100 ML IV SCH ×2 (06:59→12:44)
[2017-09-19] MEDS: MODAFINIL 200 MG TAB PO SCH (09:00)
[2017-09-19 09:29] LABS: BLOOD GAS BASE EXCESS 3.3 mmol/L (-2-2); BLOOD GAS CARBOXYHEMOGLOBIN 0.2 % (0-4); BLOOD GAS HCO3 28 mmol/L (22-26); BLOOD GAS O2 HGB SATURATION 96 % (90-100); BLOOD GAS OXYGEN CONTENT 11.1 Vol % (12.0-20.0); BLOOD GAS PCO2 52 mmHg (38-42); BLOOD GAS PO2 164 mmHg (61-120); BLOOD GAS TOTAL HGB 7.9 G/DL (12.0-16.0); TEMP CORR TO 98.6
[2017-09-19 09:30] LABS: CRITICAL VALUE YES; OXYGEN DEVICE VENTILATOR; VENT SETTINGS 550/24/+5
[2017-09-19 09:31] LABS: DRAW SITE ART LINE; FIO2 30 %; STAT NO
[2017-09-19] MEDS: INSULIN DETEMIR 100 UNITS/ML VIAL SQ SCH ×2 (10:00→20:23)
[2017-09-19] MEDS: PANTOPRAZOLE SODIUM 40 MG VIAL IV PUSH SCH (10:00)
[2017-09-19] MEDS: levETIRAcetam INJ 500 MG in SODIUM CHLORIDE 0.9% INJ 100 ML IV SCH ×2 (10:01→20:23)
[2017-09-19] MEDS: ARTIFICIAL TEARS OPTH SOLN 15 ML BTL EACH EYE SCH ×3 (10:04→18:00)
--- NOTE | 2017-09-19 10:09 | HHI.CCPN ---
Subjective Remarks/Hospital Course 61-year-old morbidly obese female presents, patient of Dr. Epstein, status post gastric sleeve 08-22-17 now presents with nonbloody emesis and unable to have a bowel movement for a couple days. She states to get that bowel movement she had a use a glycerin suppository and it was just loose. He was taken emergently to operating room and was found to have a small bowel ischemia. She underwent laparoscopic small bowel resection by Dr. Epstein and is postoperatively admitted to critical care unit SUBJ 09/09/17: Remains very critically ill. Profound septic shock requiring Levophed at 40 mcg/m, Des-Synephrine at 500 mcg/m, vasopressin at 0.04 international units, and to be demand 5 g per KG per minute. Urine output 150 mL overnight. Maintaining oxygen saturation. A.m. labs are pending at this time. Surprisingly patient is still mentating able to communicate. Remains on IV fentanyl infusion for pain control. Operative report is pending at this time. Received total of 9 L of crystalloid postoperatively. Receiving 2 units of PRBC. I will replace calcium. Lactic acid 3.5 at 4 AM 09/10: Critically ill but stable. Levophed down to 12 mcg/min, vasopressin at 0.04 IU. Uo 650 ml in 24 hours, bilateral abdominal drains with 1 L output. Right drain had greenish output overnight and now serosanguineous. D/ W Dr Epstein- he confirms perforation and gross contamination 09/11: Remains critically. FiO2 requirement up to 60%, I have increased PEEP to 10. CXR consistent with ARDS versus fluid overload. Creatinine increased to 1.24. Urine output 600 ml in 24 hours. CVP 18-20. Start IV Bumex 1 mg every 12 hours with additional 1 mg dose now. Levophed at 1 mcg/min, vasopressin at 0.04 IU 09/12: remains critically ill but stable to improving. SBP 130-140 on vasopressin will DC vasopressin. Chest x-ray shows bilateral pulmonary edema, but oxygenation has improved. Stable on 50% and PEEP of 10. Creatinine has worsened to 1.67 but urine output 1.5 L in 24 hours with Bumex. CVP remains about 20. Will increase Bumex to 1 mg every 8 hours and give additional 1 mg now. Closely monitor creatinine. 09/13: Weaning off vasopressors. SHEA persists. CXR with diffuse infiltrates , will switch modes for better recruitment hopefully. 09/14: Gas exchange improved on APRV. Renal function deteriorating. Remains fluid overloaded. 09/15: Gas exchange improved but renal function continues to deteriorate. Continue APRV - bases struggle for domain. 09/16: remains fairly encephalopathic, likely hypoactive delirium. renal function still worse today, although ? peaked?. continue APRV: body habitus would make de-recruitment almost certain if we switch to conventional mode of ventilation. still diuresing well. 09/17: creatinine continues to worsen despite adequate diuresis. BP lower today. will hold lasix drip. off all sedation x 12h and still remains encephalopathic, not following commands. may need renal replacement therapy at some point. severe electrolyte derrangements due to diuresis, and free water deficit. 09/18: Cr slightly downtrended. mental status still poor. long discussion with family and multiple members updated. remains off sedation. continuing to hold diuresis. 09/19: Cr still slightly downtrended. surgery concerned possible tube feeds in ROSSI drain after starting trickle TF yesterday. also, patient had more labored breathing on vent. etco2 70s, worsening hypercarbia and peak pressures. changed vent modes temporarily, increased minute ventilation, improved pco2, but then patient became acutely hypotensive. stat CXR ordered. clinically worse today. in addition, still no improvements in mental status. CT abd/pelvis with PO contrast ordered as well as CT brain. Objective Vital Signs Date Time Temp Pulse Resp B/P (MAP) Pulse Ox O2 Delivery O2 Flow Rate FiO2 09/19/17 06:00 93 09/19/17 04:28 97 30 09/19/17 04:00 98.3 31 138/52 (80) 09/18/17 08:47 Ventilator Intake and Output 09/19/17 09/19/17 09/20/17 08:00 16:00 00:00 Intake Total 1363 ml Output Total 1400 ml Balance -37 ml Result Diagram: 09/19/17 0441 09/19/17 0441 Other Results Laboratory Tests Test 09/18/17 14:55 09/19/17 09:14 Blood Gas Puncture Site KIANNA ART LINE Blood Gas Patient Temperature 98.6 98.6 Blood Gas HCO3 29 mmol/L (22-26) 28 mmol/L (22-26) Blood Gas Base Excess 4.8 mmol/L (-2-2) 3.3 mmol/L (-2-2) Blood Gas Oxygen Saturation 97 % (90-100) 96 % (90-100) Arterial Blood pH 7.42 (7.380-7.420) 7.36 (7.380-7.420) Arterial Blood Partial Pressure CO2 45 mmHg (38-42) 52 mmHg (38-42) Arterial Blood Partial Pressure O2 185 mmHg (61-120) 164 mmHg (61-120) Arterial Blood Oxygen Content 11.1 Vol % (12.0-20.0) 11.1 Vol % (12.0-20.0) Arterial Blood Carboxyhemoglobin 1.2 % (0-4) 0.2 % (0-4) Arterial Blood Methemoglobin 1.5 % (0-2) 1.0 % (0-2) Blood Gas Hemoglobin 7.9 G/DL (12.0-16.0) 7.9 G/DL (12.0-16.0) Oxygen Delivery Device VENTILATOR VENTILATOR Blood Gas Ventilator Setting APRV 550/24/+5 Blood Gas Inspired Oxygen 35 % 30 % Objective Remarks GENERAL: morbidly Obese, edematous female encephalopathic and intubated. SKIN: Warm and dry. HEAD: Normocephalic. EYES: No scleral icterus. No injection or drainage. NECK: trachea midline. Orotracheally intubated CARDIOVASCULAR: normal rate, regular rhythm. Heart sounds distant. JVD difficult to assess due to body habitus. RESPIRATORY: Breath sounds equal bilaterally. more respiratory distress with accessory muscle use. APRV, 33/5, 5:1, 30% fio2. GASTROINTESTINAL: Abdomen soft, tender, distended. Morbidly obese. left ROSSI drain with ?white fluid, small amount, does not appear purulent, ?tube feeds. right ROSSI with serous output. MUSCULOSKELETAL: No cyanosis, or edema. Well perfused. 2+ edema, diffuse. NEURO EXAM: Unresponsive, intubated, not following commands but withdraws all extremities. Pupils are round, reactive to light. A/P Assessment and Plan Assessment: 61yF s/p gastric bypass complicated by small bowel obstruction, intra-abdominal sepsis, persistent respiratory failure, volume overload. remains off pathway. new respiratory distress and hypotension concerning, along with new drainage from ROSSI drains. will order CT head,chest,abd/pelvis with PO contrast (no IV contrast due to resolving SHEA). more critically ill this AM than yesterday, now back on vasopressors. A/P: NEURO: Seizure disorder Metabolic encephalopathy Hypoactive Delirium - Currently off all sedation - Keppra IV. - hold sedating meds - fentanyl prn for positioning. - haldol for agitation - provigil for wakefulness. - ct brain this AM. RESP: Acute hypoxemic respiratory failure - worsening ARDS HCAP with E Coli - Continue mechanical ventilation/APRV mode, keep peak pressure <35 considering morbid obesity, Wean FiO2 and PEEP keeping SaO2> 90% - No weaning until hemodynamically stable - Vent bundle - DuoNeb every 6 hours scheduled and when necessary - Bilateral pulmonary opacities, fluid overload and acute lung injury/ARDS will need to consider tracheostomy if no significant improvements in next few days. new respiratory distress concerning. was initially hypercapneic, now slightly improved. STAT CXR, abg. CT chest. CVS: Septic shock-resolved. Lactic acidosis - resolved. New Hypotension. - s/p Aggressive IV fluid resuscitation, postop received 9 L of normal saline, 2 units of PRBC - s/p hydrocortisone taper. give 1 dose hydrocortisone in case this is rebound adrenal insufficiency - levophed for map goal > 65 mmHg. - CT abd/pelvis to eval for intra-abdominal source of new hypotension, possible septic shock. GI: Small bowel ischemia/Perforation Peritonitis - POD # 11 S/P Laparoscopic SBR for gangrenous small bowel - Post op surgical management per Dr. Epstein general surgery - PO feeding per surgery. - IV Protonix. Started TPN 09/10/17 - ct abd/pelvis with PO contrast. FEN: Hypernatremia Free water deficit Hypokalemia Hypomagnesemia - aggressive electrolyte replacement - continue d5w @ 42cc/hr for free water replacement - recheck electrolytes. : Acute kidney failure - plateaued. Contraction alkalosis - improving. - ATN most likely from severe septic shock - hold lasix drip - Maintain [place] for accurate intake output HEME: Anemia secondary to acute blood loss - s/p 2 units of PRBC, transfuse to keep Hb >7.5 - Monitor H&H - Drop in platelet most likely sepsis, now improving. ID: Septic shock - resolved. Peritonitis HCAP with E Coli - Broad-spectrum antibiotic - Flagyl, Diflucan, cefepime. - Sputum culture E Coli - Blood cultures, urine culture follow up - ID following ENDO: Diabetes mellitus Hypocalcemia - Insulin sliding scale, and IV insulin with TPN - Electrolyte replacement per protocol - Continue levemir bid DVT GI prophylaxis - Teds SCDs - Pharmacological DVT prophylaxis Lovenox 40 mg subcutaneous every 12- reduced to 40 qd due to worsening creatinine - Protonix D/W Dr. Hernandez, Overall impression: Remains critically ill, worse today. respiratory distress worse, new drainage from ROSSI drains, hypotension, possibly new septic shock. This patient remains critically ill with one or more organ systems which are or may become a threat to life. I have spent in excess of 80 minutes discontinuously in the care and management of this patient. This time is exclusive of procedures, and includes, but is not limited to, evaluation of the patient, review of the medical record, discussions with family, consultants, nursing staff, or respiratory therapy, and documentation in the medical record. Saroj Hill MD Sep 19, 2017 10:08
--- NOTE | 2017-09-19 10:11 | RADRPT ---
EXAM DATE/TIME: 09/19/2017 09:44 [facility] COMPARISON: CHEST SINGLE AP, September 19, 2017, 4:10. INDICATIONS : Short of breath. MEDICAL HISTORY : Rheumatoid arthritis. SURGICAL HISTORY : gastric sleeve ENCOUNTER: Initial ACUITY: 1 week PAIN SCORE: Non-responsive. LOCATION: Bilateral cranial FINDINGS: Support apparatus in good position. Minimally increased bibasilar parenchymal changes worse on the right. There is no pneumothorax or pleural effusion. CONCLUSION: Increasing bibasilar parenchymal changes worse on the right. Raghu Mcfarland MD FACR on September 19, 2017 at 10:07 Board Certified Radiologist. This report was verified electronically.
[2017-09-19] MEDS ORDERED: ALTEPLASE RECOMBINANT 2 MG VIAL IV FLUSH ONE ×2 (10:15→11:30)
[2017-09-19] MEDS: CHLORHEXIDINE 0.12% (ORAL KIT) 15 ML CUP MT SCH ×2 (10:25→20:00)
[2017-09-19] MEDS: SODIUM CHLORIDE 0.9% FLUSH 10 ML FLUSH IV FLUSH SCH ×2 (10:27→20:23)
--- NOTE | 2017-09-19 11:11 | HHI.IDPN ---
Note Infectious Disease Note Notes reviewed. D/W RN. Plan for CT of head and abdomen today. Patient is on the vent. Not waking up or following commands. Afebrile. Presented to the emergency department on September 07 and was diagnosed with small bowel obstruction. She was taken to surgery and was found to have necrosed, perforated small bowel and she underwent small bowel resection. The patient previously had elective gastric sleeve on 08/22/2017. After that she was having nausea and vomiting and then difficulty passing stools. During the surgical procedure the patient had some purulent material within the abdomen. PAST MEDICAL HISTORY 1. Rheumatoid arthritis 2. Hypothyroidism 3. Gout 4. Depression 5. Seizure disorder 6. Attention deficit disorder 7. Cholecystectomy 8. Tonsillectomy 9. Ankle arthroplasty 10. Gastric sleeve. 08/22/17. ALLERGIES PROPOXYPHENE DARVOCET ADHESIVE TAPES ANTIBIOTICS Pip/Tazo. SOCIAL HISTORY The patient is . Rare alcohol use noted. No tobacco. OBJECTIVE: Vital Signs Date Time Temp Pulse Resp B/P (MAP) Pulse Ox O2 Delivery O2 Flow Rate FiO2 09/19/17 09:20 97 30 09/19/17 09:20 97 Ventilator 30 09/19/17 06:00 93 09/19/17 04:28 97 30 09/19/17 04:00 98.3 96 31 138/52 (80) 97 09/19/17 04:00 96 09/19/17 04:00 35 09/19/17 02:00 97 09/19/17 01:16 98 30 09/19/17 00:00 98.9 71 18 168/72 (104) 98 09/19/17 00:00 92 09/19/17 00:00 35 09/18/17 22:00 88 09/18/17 21:08 100 30 09/18/17 20:00 92 09/18/17 20:00 98.3 92 18 168/70 (102) 100 09/18/17 20:00 35 09/18/17 18:00 94 09/18/17 17:13 98 30 09/18/17 16:00 98.0 94 19 160/68 (98) 98 09/18/17 16:00 35 09/18/17 16:00 94 09/18/17 14:30 99 35 09/18/17 14:00 94 09/18/17 13:22 98 35 09/18/17 12:00 35 09/18/17 12:00 74 09/18/17 12:00 98.3 74 23 120/56 (77) 98 Laboratory Tests Test 09/19/17 04:41 White Blood Count 10.0 TH/MM3 Red Blood Count 2.73 MIL/MM3 Hemoglobin 7.8 GM/DL Hematocrit 24.5 % Mean Corpuscular Volume 89.8 FL Mean Corpuscular Hemoglobin 28.7 PG Mean Corpuscular Hemoglobin Concent 32.0 % Red Cell Distribution Width 16.8 % Platelet Count 176 TH/MM3 Mean Platelet Volume 8.8 FL Neutrophils (%) (Auto) 88.1 % Lymphocytes (%) (Auto) 5.9 % Monocytes (%) (Auto) 4.0 % Eosinophils (%) (Auto) 1.5 % Basophils (%) (Auto) 0.5 % Neutrophils # (Auto) 8.8 TH/MM3 Lymphocytes # (Auto) 0.6 TH/MM3 Monocytes # (Auto) 0.4 TH/MM3 Eosinophils # (Auto) 0.2 TH/MM3 Basophils # (Auto) 0.0 TH/MM3 CBC Comment DIFF FINAL Differential Comment Laboratory Tests Test 09/17/17 17:30 09/18/17 04:42 09/18/17 11:50 09/19/17 04:41 Potassium Level 3.4 MEQ/L 3.4 MEQ/L 3.0 MEQ/L Magnesium Level 2.9 MG/DL 2.9 MG/DL Blood Urea Nitrogen 128 MG/DL 138 MG/DL Creatinine 3.04 MG/DL 3.02 MG/DL Random Glucose 169 MG/DL 224 MG/DL Calcium Level 8.4 MG/DL 8.4 MG/DL Sodium Level 145 MEQ/L 146 MEQ/L Chloride Level 103 MEQ/L 104 MEQ/L Carbon Dioxide Level 30.8 MEQ/L 30.2 MEQ/L Anion Gap 11 MEQ/L 12 MEQ/L Estimat Glomerular Filtration Rate 16 ML/MIN 16 ML/MIN Total Bilirubin 0.7 MG/DL 0.8 MG/DL Direct Bilirubin 0.3 MG/DL Indirect Bilirubin 0.4 MG/DL Aspartate Amino Transf (AST/SGOT) 14 U/L 16 U/L Alanine Aminotransferase (ALT/SGPT) 17 U/L 12 U/L Alkaline Phosphatase 153 U/L 148 U/L Ammonia 35 MCMOL/L Total Protein 5.5 GM/DL 5.4 GM/DL Albumin 3.4 GM/DL 3.4 GM/DL Phosphorus Level 5.2 MG/DL IMAGING: Chest X-Ray 09/19/17 0400 Signed Impressions: Service Date/Time: Tuesday, September 19, 2017 04:10 - CONCLUSION: 1. Interval improvement in bilateral pulmonary infiltrates. 2. The patient remains intubated. Yuri Holt MD Chest X-Ray 09/19/17 0000 Signed Impressions: Service Date/Time: Tuesday, September 19, 2017 09:44 - CONCLUSION: Increasing bibasilar parenchymal changes worse on the right. Raghu Mcfarland MD FACR Chest X-Ray 09/10/17 0600 Signed Impressions: Service Date/Time: Sunday, September 10, 2017 05:28 - CONCLUSION: Suboptimal Midinspiratory mildly rotated study with increased opacity greatest in the left lung. This could indicate infiltrate or could be partially artifactual and due to the Midinspiratory view and rotation. Yuri Holt MD Abdomen Fluoroscopy 09/08/17 0000 Signed Impressions: Service Date/Time: Friday, September 08, 2017 12:04 - CONCLUSION: Uncomplicated nasogastric tube placement as above. Tae Archuleta Jr., MD Abdomen/Pelvis CT 09/07/17 0000 Signed Impressions: Service Date/Time: August 12:20 - CONCLUSION: 1. Small bowel obstruction with transition point in the lower abdomen adjacent to an area of indurated mesentery. 2. Marked dilation of the intrahepatic biliary system , up to 2.2 cm, and some mild distention of the intrahepatic biliary system. Differential considerations include a distal biliary obstruction and reservoir effect from prior cholecystectomy. Tae Roblero MD PHYSICAL EXAM: GENERAL: Patient is on the vent. Unresponsive. HEENT: Head atraumatic, No icterus. Oropharynx intubated. NECK: Supple. No adenopathy. LUNGS: Clear BS. CARDIAC: Regular rate and rhythm. no murmurs, rubs or gallops. ABDOMEN: Obese. Soft. Unable to appreciate tenderness. Arnie drains has mateo clear drainage with mucus strings. EXTREMITIES: No clubbing, cyanosis. 2+ edema at the hands and feet. SKIN: No rash. Warm and moist. NEURO: Unable to assess. IMPRESSION 1. Septic shock. 2. Post exploratory laparotomy and small bowel resection along with lysis of adhesions for small bowel perforation. 3. Peritonitis due to due to small bowel perforation. 4. Acute respiratory failure. 5. VAP gram negative. E. coli. 6. Acute kidney disease. ? sepsis related. ? medication. 7. Leukocytosis. WBC now normal. RECOMMENDATIONS 1. Continue Zosyn. 2. Monitor abdominal drainage culture. 3. Avoid nephrotoxic meds. 4. Follow clinical status. Jus Enriquez MD Sep 19, 2017 11:11
[2017-09-19] MEDS ORDERED: DIATRIZOATE MEGLUM/DIATRIZOATE SOD 9 ML CUP PO ONE (11:45)
[2017-09-19] MEDS ORDERED: NOREPINEPHRINE 4 MG/D5W 250 ML IV PRN (12:00)
[2017-09-19] MEDS: DEXTROSE 5% IN WATE 1000ML INJ 1,000 ML IV SCH (13:31)
--- NOTE | 2017-09-19 13:56 | HHI.NPPN ---
Subjective History of Present Illness Patient is a 61-year-old morbidly obese female who underwent gastric sleeve operation earlier this month on 08/23/17, patient has obstructive symptoms she was admitted and then has been doing well until [place] when she developed the abdominal pain nausea vomiting and patient has been brought her back to the emergency. She had diagnoses of peritonitis, bowel obstruction, septic shock. Underwent surgical bowel resection due to perforation currently intubated Additional Remarks Patient remain intubated and sedated, clinically same. Objective Data Data Vital Signs Date Time Temp Pulse Resp B/P (MAP) Pulse Ox O2 Delivery O2 Flow Rate FiO2 09/19/17 12:03 97 30 09/19/17 09:20 97 30 09/19/17 09:20 97 Ventilator 30 09/19/17 06:00 93 09/19/17 04:28 97 30 09/19/17 04:00 98.3 96 31 138/52 (80) 97 09/19/17 04:00 96 09/19/17 04:00 35 09/19/17 02:00 97 09/19/17 01:16 98 30 09/19/17 00:00 98.9 71 18 168/72 (104) 98 09/19/17 00:00 92 09/19/17 00:00 35 09/18/17 22:00 88 09/18/17 21:08 100 30 09/18/17 20:00 92 09/18/17 20:00 98.3 92 18 168/70 (102) 100 09/18/17 20:00 35 09/18/17 18:00 94 09/18/17 17:13 98 30 09/18/17 16:00 98.0 94 19 160/68 (98) 98 09/18/17 16:00 35 09/18/17 16:00 94 09/18/17 14:30 99 35 09/18/17 14:00 94 -: 09/19/17 0441 09/19/17 0441 Physical Exam Neck Neck Exam: Neck Supple Pulmonary Resp Exam: Crackles, Rhonchi, Decreased Bases, Diminished Breath Sounds, Poor Inspiratory Effort Cardiology CV Exam: Regular Gastrointestinal/Abdomen GI Exam: Soft, Non-Tender, Distended, Bowel Sounds Absent Extremeties Extremities Exam: Pitting Edema, Dependent Edema Neurologic Neuro Exam: Sedated Assessment/Plan Problem List: (1) Acute renal failure ICD Codes: N17.9 - Acute kidney failure, unspecified Plan: Patient was in septic shock she was again hypotensive discussed with Dr. Liz Roy stopped Avoid nephrotoxic medications Creatinine about the same May require hemodialysis to get fluid off will see next 24 hours or if her creatinine is worsening and she will need a Vas-Cath Discussed with staff (2) Small bowel obstruction ICD Codes: K56.609 - Unspecified intestinal obstruction, unspecified as to partial versus complete obstruction Status: Acute Plan: Status post surgical intervention (3) Ileus following gastrointestinal surgery ICD Codes: K91.30 - Postprocedural intestinal obstruction, unspecified as to partial versus complete Plan: Continue to monitor Annita Bond MD Sep 19, 2017 13:56
--- NOTE | 2017-09-19 14:04 | HHI.PR ---
Subjective Subjective Notes Remains intubated and minimally responsive Had episode of hypotension earlier today Change in color in ROSSI drain Objective Vitals/I&O Vital Signs Date Time Temp Pulse Resp B/P (MAP) Pulse Ox O2 Delivery O2 Flow Rate FiO2 09/19/17 12:03 97 30 09/19/17 09:20 Ventilator 09/19/17 06:00 93 09/19/17 04:00 98.3 31 138/52 (80) Labs Laboratory Tests Test 09/18/17 14:55 09/19/17 04:41 09/19/17 09:14 Blood Gas Puncture Site KIANNA ART LINE Blood Gas Patient Temperature 98.6 98.6 Blood Gas HCO3 29 28 Blood Gas Base Excess 4.8 3.3 Blood Gas Oxygen Saturation 97 96 Arterial Blood pH 7.42 7.36 Arterial Blood Partial Pressure CO2 45 52 Arterial Blood Partial Pressure O2 185 164 Arterial Blood Oxygen Content 11.1 11.1 Arterial Blood Carboxyhemoglobin 1.2 0.2 Arterial Blood Methemoglobin 1.5 1.0 Blood Gas Hemoglobin 7.9 7.9 Oxygen Delivery Device VENTILATOR VENTILATOR Blood Gas Ventilator Setting APRV 550/24/+5 Blood Gas Inspired Oxygen 35 30 White Blood Count 10.0 Red Blood Count 2.73 Hemoglobin 7.8 Hematocrit 24.5 Mean Corpuscular Volume 89.8 Mean Corpuscular Hemoglobin 28.7 Mean Corpuscular Hemoglobin Concent 32.0 Red Cell Distribution Width 16.8 Platelet Count 176 Mean Platelet Volume 8.8 Neutrophils (%) (Auto) 88.1 Lymphocytes (%) (Auto) 5.9 Monocytes (%) (Auto) 4.0 Eosinophils (%) (Auto) 1.5 Basophils (%) (Auto) 0.5 Neutrophils # (Auto) 8.8 Lymphocytes # (Auto) 0.6 Monocytes # (Auto) 0.4 Eosinophils # (Auto) 0.2 Basophils # (Auto) 0.0 CBC Comment DIFF FINAL Differential Comment Blood Urea Nitrogen 138 Creatinine 3.02 Random Glucose 224 Total Protein 5.4 Albumin 3.4 Calcium Level 8.4 Phosphorus Level 5.2 Magnesium Level 2.9 Alkaline Phosphatase 148 Aspartate Amino Transf (AST/SGOT) 16 Alanine Aminotransferase (ALT/SGPT) 12 Total Bilirubin 0.8 Sodium Level 146 Potassium Level 3.0 Chloride Level 104 Carbon Dioxide Level 30.2 Anion Gap 12 Estimat Glomerular Filtration Rate 16 Date/Time Source Procedure Growth Status 09/10/17 08:30 Blood Peripheral Aerobic Blood Culture - Final NO GROWTH IN 5 DAYS Complete 09/10/17 08:30 Blood Peripheral Anaerobic Blood Culture - Final NO GROWTH IN 5 DAYS Complete 09/08/17 21:10 Sputum Oral Tracheal Aspirate Gram Stain - Final Complete 09/08/17 21:10 Sputum Culture - Final Escherichia Coli Complete 09/09/17 09:45 Urine Clean Catch Urine Culture - Final NO GROWTH IN 48 HOURS. Complete 09/15/17 08:31 Wound Abdomen Gram Stain - Final Complete 09/15/17 08:31 Wound Abdomen Wound Culture - Final NO GROWTH IN 72 HRS.--AEROBICALLY OR ... Complete Radiology Last Impressions Chest X-Ray 09/19/17 0400 Signed Impressions: Service Date/Time: Tuesday, September 19, 2017 04:10 - CONCLUSION: 1. Interval improvement in bilateral pulmonary infiltrates. 2. The patient remains intubated. Yuri Holt MD Abdomen Fluoroscopy 09/08/17 0000 Signed Impressions: Service Date/Time: Friday, September 08, 2017 12:04 - CONCLUSION: Uncomplicated nasogastric tube placement as above. Tae Archuleta Jr., MD Abdomen/Pelvis CT 09/07/17 0000 Signed Impressions: Service Date/Time: August 12:20 - CONCLUSION: 1. Small bowel obstruction with transition point in the lower abdomen adjacent to an area of indurated mesentery. 2. Marked dilation of the intrahepatic biliary system , up to 2.2 cm, and some mild distention of the intrahepatic biliary system. Differential considerations include a distal biliary obstruction and reservoir effect from prior cholecystectomy. Tae Roblero MD Last Impressions Chest X-Ray 09/15/17 0000 Signed Impressions: Service Date/Time: Friday, September 15, 2017 04:17 - CONCLUSION: Stable chest x-ray with bilateral mid and lower lung zone airspace opacities. Damian Bedolla MD Abdomen Fluoroscopy 09/08/17 0000 Signed Impressions: Service Date/Time: Friday, September 08, 2017 12:04 - CONCLUSION: Uncomplicated nasogastric tube placement as above. Tae Archuleta Jr., MD Abdomen/Pelvis CT 09/07/17 0000 Signed Impressions: Service Date/Time: August 12:20 - CONCLUSION: 1. Small bowel obstruction with transition point in the lower abdomen adjacent to an area of indurated mesentery. 2. Marked dilation of the intrahepatic biliary system , up to 2.2 cm, and some mild distention of the intrahepatic biliary system. Differential considerations include a distal biliary obstruction and reservoir effect from prior cholecystectomy. Tae Roblero MD Cardiovascular: Regular Lungs: Rhonchi Abdomen: Other (rare bowel sounds) Extremities: Perfused Wound Wound : Wound Location: Abdomen A/P Assessment and Plan 61yo F with small bowel perforation and peritonitis -Creatinine with slight trend downward, continues to make urine -norepinephrine gtt currently wean off -D/C tube feed -Will see what results of CT show Flower Gomez Sep 19, 2017 14:04
--- NOTE | 2017-09-19 16:29 | RADRPT ---
EXAM DATE/TIME: 09/19/2017 15:54 [facility] COMPARISON: No previous studies available for comparison. INDICATIONS : Altered mental status. RADIATION DOSE: 54.61 CTDIvol (mGy) MEDICAL HISTORY : Ischemia small bowel. SURGICAL HISTORY : Gastric bypass. ENCOUNTER: Initial ACUITY: 1 day PAIN SCALE: Non-responsive LOCATION: Bilateral cranial TECHNIQUE: Multiple contiguous axial images were obtained of the head. Using automated exposure control and adj ustment of the mA and/or kV according to patient size, radiation dose was kept as low as reasonably a chievable to obtain optimal diagnostic quality images. DICOM format image data is available electro nically for review and comparison. FINDINGS: Noncontrast axial head CT demonstrates the ventricles to be normal in size and configuration with a n ormal sulcal pattern. No acute intracranial hemorrhage, acute cortical infarction, mass or midline sh ift is seen. Posterior fossa structures are unremarkable. Bone windows are unremarkable with the exception of mucosal disease involving the mastoids bilaterall y in the left middle ear. CONCLUSION: 1. No evidence of acute intracranial pathology. No masses are identified. 2. Bilateral mastoiditis Jens John MD on September 19, 2017 at 16:26 Board Certified Radiologist. This report was verified electronically.
--- NOTE | 2017-09-19 17:10 | RADRPT ---
EXAM DATE/TIME: 09/19/2017 15:59 [facility] COMPARISON: ABDOMEN KUB ONLY, August 31, 2017, 10:11. CT ABDOMEN & PELVIS W/O CONTRAST, August 25, 2017, 18: 59. INDICATIONS : Abdomen pain, fistula. ORAL CONTRAST: Prescribed oral contrast ingested. RADIATION DOSE: 22.10 CTDIvol (mGy) ; Combined studies - Thorax/Abdomen/Pelvis MEDICAL HISTORY : Ischemia small bowel. SURGICAL HISTORY : Gastric bypass. ENCOUNTER: Initial ACUITY: 1 day PAIN SCALE: Non-responsive LOCATION: Bilateral lower quadrant TECHNIQUE: Volumetric scanning of the abdomen and pelvis was performed. Using automated exposure control and ad justment of the mA and/or kV according to patient size, radiation dose was kept as low as reasonably achievable to obtain optimal diagnostic quality images. DICOM format image data is available electro nically for review and comparison. FINDINGS: There is bilateral lower lobe atelectasis versus pneumonia. Moderate ascites is present in the upper quadrants. There is extensive edema in the subcutaneous tissues bilaterally in the upper abdomen. The liver and spleen are normal in size and no focal defects are identified. The gallbladder is absent. The pancreas demonstrates normal contour without evidence of mass or ductal dilatation. There is no e vidence of abscess. Examination of the pelvis demonstrates no evidence of free fluid or pelvic mass. No abnormally enlarg ed inguinal or retroperitoneal lymph nodes are present. The bladder is unremarkable. There is diverti culosis without evidence of diverticulitis. CONCLUSION: 1. There is no evidence of abscess. 2. Mild ascites Jens John MD on September 19, 2017 at 17:00 Board Certified Radiologist. This report was verified electronically.
--- NOTE | 2017-09-19 22:27 | RADRPT ---
EXAM DATE/TIME: 09/19/2017 15:59 [facility] COMPARISON: CT ABDOMEN & PELVIS W/O CONTRAST, September 19, 2017, 15:59. CHEST SINGLE AP, September 19, 2017, 9:44 . INDICATIONS : Short of breath. RADIATION DOSE: 22.21 CTDIvol (mGy) ; Patient body habitus; Combined studies - Thorax/Abdomen/Pelvis MEDICAL HISTORY : Ischemia small bowel. SURGICAL HISTORY : Gastric bypass. ENCOUNTER: Initial ACUITY: 1 day PAIN SCALE: Non-responsive LOCATION: Bilateral chest TECHNIQUE: Volumetric scanning of the chest was performed. Using automated exposure control and adjustment of t he mA and/or kV according to patient size, radiation dose was kept as low as reasonably achievable to obtain optimal diagnostic quality images. DICOM format image data is available electronically for r eview and comparison. Follow-up recommendations for detected pulmonary nodules are based at a minimum on nodule size and pa tient risk factors according to Fleischner Society Guidelines. FINDINGS: LUNGS: There is no pneumothorax. No concerning pulmonary nodule is visualized. There are multiple is consol idation in the right lower lobe with air bronchograms. There there are also areas of consolidation in the right middle lobe. There is more patchy opacity in the upper lobes and lingula as well as the po sterior left lower lobe. There is moderate elevation of the right hemidiaphragm. PLEURAE: There is no pleural thickening or pleural effusion. MEDIASTINUM: The heart and great vessels demonstrate no acute abnormality. There is no mediastinal or hilar lymph adenopathy. An endotracheal tube and nasogastric tube are in place. There is a right-sided central ve nous line. AXILLAE: The left axilla is unremarkable. There is abnormal soft tissue density in the right axilla which is n on-masslike extends along the right lateral chest wall with areas of higher density likely representi ng hemorrhage. There is surrounding inflammatory change. There are no gas bubbles identified. Abnorma l soft tissue density and inflammatory change extends to the level of the upper abdomen. MUSCULOSKELETAL: Within normal limits for patient age. MISCELLANEOUS: Ascites is noted in the upper abdomen. The adrenal glands are within normal limits. CONCLUSION: 1. Multifocal areas of consolidation greatest in right lower lobe most characteristic of pneumonia. 2. Abnormal soft tissue density in the right axilla contiguous with abnormal soft tissue density and inflammatory change extending along the right lateral chest wall. This could represent hemorrhage and /or inflammatory change. There are no gas bubbles are infection cannot be excluded. 3. There is fluid again noted in the upper abdomen. 4. Moderate elevation of the right hemidiaphragm. Yuri Holt MD on September 19, 2017 at 22:19 Board Certified Radiologist. This report was verified electronically.
[2017-09-20] VITALS (18 sets, daily range): BP systolic 148–167; BP diastolic 62–67; PULSE 88–100; RESP 15–20; TEMP 98.1–99.5; O2SAT 97–100
[2017-09-20] MEDS: MULTIVITAMIN INJ 10 ML, FOLIC ACID INJ 1 MG, INSULIN HUMAN REGULAR INJ 40 UNITS in AMIN... IV-CENTRAL SCH ×2 (01:13→19:44)
[2017-09-20] MEDS: ALBUMIN 25% INJ 100 ML IV SCH ×3 (01:13→16:44)
[2017-09-20] MEDS: PIPERACIL-TAZO 2.25 GM PREMIX 50 ML IV SCH ×3 (03:00→18:45)
[2017-09-20] MEDS ORDERED: POTASSIUM CHLOR 40 MEQ PREMIX 100 ML IV ONE (03:30)
[2017-09-20] MEDS: RESP: ALBUTEROL 2.5 MG/IPRATROPIUM 0.5 MG NEB (SCH) NEB ×2 (03:52→09:29)
[2017-09-20] MEDS: LEVOTHYROXINE SODIUM 100 MCG VIAL IV PUSH SCH (05:37)
[2017-09-20] MEDS: ENOXAPARIN SODIUM 30 MG/0.3 ML SYRINGE SQ SCH (05:37)
[2017-09-20] MEDS: INSULIN ASPART SUPPLEMENTAL SCALE SQ SCH ×4 (06:00→18:00)
[2017-09-20] MEDS: CHLORHEXIDINE 0.12% (ORAL KIT) 15 ML CUP MT SCH ×2 (08:30→20:00)
[2017-09-20] MEDS: PANTOPRAZOLE SODIUM 40 MG VIAL IV PUSH SCH (09:41)
[2017-09-20] MEDS: SODIUM CHLORIDE 0.9% FLUSH 10 ML FLUSH IV FLUSH SCH ×2 (09:41→21:00)
[2017-09-20] MEDS: MODAFINIL 200 MG TAB PO SCH (09:42)
[2017-09-20] MEDS: ARTIFICIAL TEARS OPTH SOLN 15 ML BTL EACH EYE SCH ×3 (09:42→18:00)
[2017-09-20] MEDS: INSULIN DETEMIR 100 UNITS/ML VIAL SQ SCH ×2 (09:43→21:00)
[2017-09-20] MEDS: levETIRAcetam INJ 500 MG in SODIUM CHLORIDE 0.9% INJ 100 ML IV SCH ×2 (09:52→21:51)
--- NOTE | 2017-09-20 10:03 | HHI.CCPN ---
Subjective Remarks/Hospital Course 61-year-old morbidly obese female presents, patient of Dr. Epstein, status post gastric sleeve 08-22-17 now presents with nonbloody emesis and unable to have a bowel movement for a couple days. She states to get that bowel movement she had a use a glycerin suppository and it was just loose. He was taken emergently to operating room and was found to have a small bowel ischemia. She underwent laparoscopic small bowel resection by Dr. Epstein and is postoperatively admitted to critical care unit SUBJ 09/09/17: Remains very critically ill. Profound septic shock requiring Levophed at 40 mcg/m, Des-Synephrine at 500 mcg/m, vasopressin at 0.04 international units, and to be demand 5 g per KG per minute. Urine output 150 mL overnight. Maintaining oxygen saturation. A.m. labs are pending at this time. Surprisingly patient is still mentating able to communicate. Remains on IV fentanyl infusion for pain control. Operative report is pending at this time. Received total of 9 L of crystalloid postoperatively. Receiving 2 units of PRBC. I will replace calcium. Lactic acid 3.5 at 4 AM 09/10: Critically ill but stable. Levophed down to 12 mcg/min, vasopressin at 0.04 IU. Uo 650 ml in 24 hours, bilateral abdominal drains with 1 L output. Right drain had greenish output overnight and now serosanguineous. D/ W Dr Epstein- he confirms perforation and gross contamination 09/11: Remains critically. FiO2 requirement up to 60%, I have increased PEEP to 10. CXR consistent with ARDS versus fluid overload. Creatinine increased to 1.24. Urine output 600 ml in 24 hours. CVP 18-20. Start IV Bumex 1 mg every 12 hours with additional 1 mg dose now. Levophed at 1 mcg/min, vasopressin at 0.04 IU 09/12: remains critically ill but stable to improving. SBP 130-140 on vasopressin will DC vasopressin. Chest x-ray shows bilateral pulmonary edema, but oxygenation has improved. Stable on 50% and PEEP of 10. Creatinine has worsened to 1.67 but urine output 1.5 L in 24 hours with Bumex. CVP remains about 20. Will increase Bumex to 1 mg every 8 hours and give additional 1 mg now. Closely monitor creatinine. 09/13: Weaning off vasopressors. SHEA persists. CXR with diffuse infiltrates , will switch modes for better recruitment hopefully. 09/14: Gas exchange improved on APRV. Renal function deteriorating. Remains fluid overloaded. 09/15: Gas exchange improved but renal function continues to deteriorate. Continue APRV - bases struggle for domain. 09/16: remains fairly encephalopathic, likely hypoactive delirium. renal function still worse today, although ? peaked?. continue APRV: body habitus would make de-recruitment almost certain if we switch to conventional mode of ventilation. still diuresing well. 09/17: creatinine continues to worsen despite adequate diuresis. BP lower today. will hold lasix drip. off all sedation x 12h and still remains encephalopathic, not following commands. may need renal replacement therapy at some point. severe electrolyte derrangements due to diuresis, and free water deficit. 09/18: Cr slightly downtrended. mental status still poor. long discussion with family and multiple members updated. remains off sedation. continuing to hold diuresis. 09/19: Cr still slightly downtrended. surgery concerned possible tube feeds in ROSSI drain after starting trickle TF yesterday. also, patient had more labored breathing on vent. etco2 70s, worsening hypercarbia and peak pressures. changed vent modes temporarily, increased minute ventilation, improved pco2, but then patient became acutely hypotensive. stat CXR ordered. clinically worse today. in addition, still no improvements in mental status. CT abd/pelvis with PO contrast ordered as well as CT brain. 09/20: CXR clear, will convert back to spontaneous ventilation to avoid CO2 retention. Marked azotemia, likely contributing to obtundation. BUN > 130. Objective Vital Signs Date Time Temp Pulse Resp B/P (MAP) Pulse Ox O2 Delivery O2 Flow Rate FiO2 09/20/17 08:54 98 30 09/20/17 06:00 100 09/20/17 04:00 98.1 19 164/63 (96) 09/19/17 09:20 Ventilator Intake and Output 09/20/17 09/20/17 09/21/17 08:00 16:00 00:00 Intake Total 3447 ml Output Total 1930 ml Balance 1517 ml Result Diagram: 09/19/17 0441 09/20/17 0130 Objective Remarks GENERAL: morbidly obese, edematous female; encephalopathic and intubated. SKIN: Warm and dry. HEAD: Normocephalic. EYES: No scleral icterus. No injection or drainage. NECK: Trachea midline. Orotracheally intubated CARDIOVASCULAR: normal rate, regular rhythm. Heart sounds distant. JVD difficult to assess due to body habitus. RESPIRATORY: Breath sounds equal bilaterally. No wheezes or crackles. APRV, 33/ 10, 30% fio2. GASTROINTESTINAL: Abdomen soft, tender, distended. Morbidly obese. left ROSSI drain with ?white fluid, small amount, does not appear purulent, ?tube feeds. right ROSSI with serous output. MUSCULOSKELETAL: No cyanosis, or edema. Well perfused. 2+ edema, diffuse. NEURO EXAM: Unresponsive, intubated, not following commands but withdraws all extremities. Pupils are round, reactive to light. A/P Assessment and Plan Assessment: 61yF s/p gastric bypass complicated by small bowel obstruction, intra-abdominal sepsis, persistent respiratory failure, volume overload. remains off pathway. new respiratory distress and hypotension concerning, along with new drainage from ROSSI drains. will order CT head,chest,abd/pelvis with PO contrast (no IV contrast due to resolving SHEA). A/P: NEURO: Seizure disorder Metabolic encephalopathy Hypoactive Delirium - Currently off all sedation - Keppra IV. - hold sedating meds - fentanyl prn for positioning. - haldol for agitation - provigil for wakefulness. - ct brain this AM. RESP: Acute hypoxemic respiratory failure - worsening ARDS HCAP with E Coli - Continue mechanical ventilation/APRV mode, keep peak pressure <35 considering morbid obesity, Wean FiO2 and PEEP keeping SaO2> 90% - No weaning until hemodynamically stable - Vent bundle - DuoNeb every 6 hours scheduled and when necessary - Bilateral pulmonary opacities, fluid overload and acute lung injury/ARDS will need to consider tracheostomy if no significant improvements in next few days. new respiratory distress concerning. was initially hypercapneic, now slightly improved. STAT CXR, abg. CT chest. CVS: Septic shock-resolved. Lactic acidosis - resolved. New Hypotension. - s/p Aggressive IV fluid resuscitation, postop received 9 L of normal saline, 2 units of PRBC - s/p hydrocortisone taper. give 1 dose hydrocortisone in case this is rebound adrenal insufficiency - levophed for map goal > 65 mmHg. - CT abd/pelvis to eval for intra-abdominal source of new hypotension, possible septic shock. GI: Small bowel ischemia/Perforation Peritonitis - POD # 12 S/P Laparoscopic SBR for gangrenous small bowel - Post op surgical management per Dr. Epstein general surgery - PO feeding per surgery. - IV Protonix. Started TPN 09/10/17 - ct abd/pelvis with PO contrast. FEN: Hypernatremia Free water deficit Hypokalemia Hypomagnesemia - aggressive electrolyte replacement - continue d5w @ 42cc/hr for free water replacement - recheck electrolytes. : Acute kidney failure - plateaued. Contraction alkalosis - improving. - ATN most likely from severe septic shock - hold lasix drip - Maintain [place] for accurate intake output HEME: Anemia secondary to acute blood loss - s/p 2 units of PRBC, transfuse to keep Hb >7.5 - Monitor H&H - Drop in platelet most likely sepsis, now improving. ID: Septic shock - resolved. Peritonitis HCAP with E Coli - Broad-spectrum antibiotic - Flagyl, Diflucan, cefepime. - Sputum culture E Coli - Blood cultures, urine culture follow up - ID following ENDO: Diabetes mellitus Hypocalcemia - Insulin sliding scale, and IV insulin with TPN - Electrolyte replacement per protocol - Continue levemir bid DVT GI prophylaxis - Teds SCDs - Pharmacological DVT prophylaxis Lovenox 40 mg subcutaneous every 12- reduced to 40 qd due to worsening creatinine - Protonix Lines: Right IJ line d/c'd 09/20, New left SCV CVL placed 09/20. D/W Dr. Hernandez, Overall impression: Remains critically ill. respiratory distress stabilized, new drainage from ROSSI drains, hypotension, possibly new septic shock. This patient remains critically ill with one or more organ systems which are or may become a threat to life. I have spent in excess of 43 minutes discontinuously in the care and management of this patient. This time is exclusive of procedures, and includes, but is not limited to, evaluation of the patient, review of the medical record, discussions with family, consultants, nursing staff, or respiratory therapy, and documentation in the medical record. Jose Landin MD Sep 20, 2017 10:03
[2017-09-20] MEDS: DEXTROSE 5% IN WATE 1000ML INJ 1,000 ML IV SCH ×2 (10:10→18:45)
--- NOTE | 2017-09-20 11:26 | HHI.NPPN ---
Subjective History of Present Illness Patient is a 61-year-old morbidly obese female who underwent gastric sleeve operation earlier this month on 08/23/17, patient has obstructive symptoms she was admitted and then as been doing well until [place] when she developed the abdominal pain nausea vomiting and patient has been brought her back to the emergency. She had diagnoses of peritonitis, bowel obstruction, septic shock. Underwent surgical bowel resection due to perforation currently intubated Additional Remarks Patient remain intubated and sedated, clinically same. Objective Data Data 09/20/17 09/21/17 19:00 07:00 Intake Total 1205 ml Output Total 670 ml Balance 535 ml IV Total 1205 ml Output Urine Total 600 ml Drainage Total 70 ml Vital Signs Date Time Temp Pulse Resp B/P (MAP) Pulse Ox O2 Delivery O2 Flow Rate FiO2 09/20/17 08:54 98 30 09/20/17 06:00 100 09/20/17 04:08 98 30 09/20/17 04:00 98.1 92 19 164/63 (96) 100 09/20/17 04:00 30 09/20/17 04:00 92 09/20/17 02:00 89 09/20/17 01:08 100 30 09/20/17 00:00 88 09/20/17 00:00 30 09/20/17 00:00 98.2 88 20 167/63 (97) 100 09/19/17 22:00 86 09/19/17 20:10 100 30 09/19/17 20:00 30 09/19/17 20:00 86 09/19/17 20:00 98.5 86 17 152/66 (94) 100 09/19/17 18:11 100 30 09/19/17 18:00 84 09/19/17 16:00 30 09/19/17 16:00 98.0 87 15 138/68 (91) 100 09/19/17 16:00 87 09/19/17 15:30 100 100 09/19/17 14:00 83 09/19/17 12:03 97 30 09/19/17 12:00 84 09/19/17 12:00 97.9 84 11 106/52 (70) 97 09/19/17 12:00 30 -: 09/19/17 0441 09/20/17 0130 Physical Exam Neck Neck Exam: Neck Supple Pulmonary Resp Exam: Crackles, Rhonchi, Decreased Bases, Diminished Breath Sounds, Poor Inspiratory Effort Cardiology CV Exam: Regular Gastrointestinal/Abdomen GI Exam: Soft, Non-Tender, Distended, Bowel Sounds Absent Extremeties Extremities Exam: Pitting Edema, Dependent Edema Neurologic Neuro Exam: Sedated Assessment/Plan Problem List: (1) Acute renal failure ICD Codes: N17.9 - Acute kidney failure, unspecified Plan: Patient was in septic shock she was again hypotensive discussed with family Nonoliguric urine output 2.9 L Avoid nephrotoxic medications Creatinine about the same Potassium has been replaced She is doing well and can be observed for further recovery, there is no indication for acute dialysis if she continues to recover kidney function (2) Small bowel obstruction ICD Codes: K56.609 - Unspecified intestinal obstruction, unspecified as to partial versus complete obstruction Status: Acute Plan: Status post surgical intervention (3) Ileus following gastrointestinal surgery ICD Codes: K91.30 - Postprocedural intestinal obstruction, unspecified as to partial versus complete Plan: Continue to monitor Annita Bond MD Sep 20, 2017 11:26
--- NOTE | 2017-09-20 11:37 | HHI.IDPN ---
Note Infectious Disease Note Patient is on the vent. Not waking up or following commands. No distress. Afebrile. Presented to the emergency department on September 07 and was diagnosed with small bowel obstruction. She was taken to surgery and was found to have necrosed, perforated small bowel and she underwent small bowel resection. The patient previously had elective gastric sleeve on 08/22/2017. After that she was having nausea and vomiting and then difficulty passing stools. During the surgical procedure the patient had some purulent material within the abdomen. PAST MEDICAL HISTORY 1. Rheumatoid arthritis 2. Hypothyroidism 3. Gout 4. Depression 5. Seizure disorder 6. Attention deficit disorder 7. Cholecystectomy 8. Tonsillectomy 9. Ankle arthroplasty 10. Gastric sleeve. 08/22/17. ALLERGIES PROPOXYPHENE DARVOCET ADHESIVE TAPES ANTIBIOTICS Pip/Tazo. OBJECTIVE: Vital Signs Date Time Temp Pulse Resp B/P (MAP) Pulse Ox O2 Delivery O2 Flow Rate FiO2 09/20/17 11:26 97 30 09/20/17 08:54 98 30 09/20/17 06:00 100 09/20/17 04:08 98 30 09/20/17 04:00 98.1 92 19 164/63 (96) 100 09/20/17 04:00 30 09/20/17 04:00 92 09/20/17 02:00 89 09/20/17 01:08 100 30 09/20/17 00:00 88 09/20/17 00:00 30 09/20/17 00:00 98.2 88 20 167/63 (97) 100 09/19/17 22:00 86 09/19/17 20:10 100 30 09/19/17 20:00 30 09/19/17 20:00 86 09/19/17 20:00 98.5 86 17 152/66 (94) 100 09/19/17 18:11 100 30 09/19/17 18:00 84 09/19/17 16:00 30 09/19/17 16:00 98.0 87 15 138/68 (91) 100 09/19/17 16:00 87 09/19/17 15:30 100 100 09/19/17 14:00 83 09/19/17 12:03 97 30 09/19/17 12:00 84 09/19/17 12:00 97.9 84 11 106/52 (70) 97 09/19/17 12:00 30 Laboratory Tests Test 09/19/17 04:41 White Blood Count 10.0 TH/MM3 Red Blood Count 2.73 MIL/MM3 Hemoglobin 7.8 GM/DL Hematocrit 24.5 % Mean Corpuscular Volume 89.8 FL Mean Corpuscular Hemoglobin 28.7 PG Mean Corpuscular Hemoglobin Concent 32.0 % Red Cell Distribution Width 16.8 % Platelet Count 176 TH/MM3 Mean Platelet Volume 8.8 FL Neutrophils (%) (Auto) 88.1 % Lymphocytes (%) (Auto) 5.9 % Monocytes (%) (Auto) 4.0 % Eosinophils (%) (Auto) 1.5 % Basophils (%) (Auto) 0.5 % Neutrophils # (Auto) 8.8 TH/MM3 Lymphocytes # (Auto) 0.6 TH/MM3 Monocytes # (Auto) 0.4 TH/MM3 Eosinophils # (Auto) 0.2 TH/MM3 Basophils # (Auto) 0.0 TH/MM3 CBC Comment DIFF FINAL Differential Comment Laboratory Tests Test 09/18/17 11:50 09/19/17 04:41 09/19/17 18:15 09/20/17 01:30 Total Bilirubin 0.7 MG/DL 0.8 MG/DL Direct Bilirubin 0.3 MG/DL Indirect Bilirubin 0.4 MG/DL Aspartate Amino Transf (AST/SGOT) 14 U/L 16 U/L Alanine Aminotransferase (ALT/SGPT) 17 U/L 12 U/L Alkaline Phosphatase 153 U/L 148 U/L Ammonia 35 MCMOL/L Total Protein 5.5 GM/DL 5.4 GM/DL Albumin 3.4 GM/DL 3.4 GM/DL Blood Urea Nitrogen 138 MG/DL Creatinine 3.02 MG/DL Random Glucose 224 MG/DL Calcium Level 8.4 MG/DL Phosphorus Level 5.2 MG/DL Magnesium Level 2.9 MG/DL Sodium Level 146 MEQ/L Potassium Level 3.0 MEQ/L 3.2 MEQ/L Chloride Level 104 MEQ/L Carbon Dioxide Level 30.2 MEQ/L Anion Gap 12 MEQ/L Estimat Glomerular Filtration Rate 16 ML/MIN Lactic Acid Level 1.0 mmol/L IMAGING: Last 48 hours Impressions Chest X-Ray 09/19/17 0400 Signed Impressions: Service Date/Time: Tuesday, September 19, 2017 04:10 - CONCLUSION: 1. Interval improvement in bilateral pulmonary infiltrates. 2. The patient remains intubated. Yuri Holt MD Head CT 09/19/17 0000 Signed Impressions: Service Date/Time: Tuesday, September 19, 2017 15:54 - CONCLUSION: 1. No evidence of acute intracranial pathology. No masses are identified. 2. Bilateral mastoiditis Jens John MD Chest X-Ray 09/19/17 0000 Signed Impressions: Service Date/Time: Tuesday, September 19, 2017 09:44 - CONCLUSION: Increasing bibasilar parenchymal changes worse on the right. Raghu Mcfarland MD FACR Chest CT 09/19/17 0000 Signed Impressions: Service Date/Time: Tuesday, September 19, 2017 15:59 - CONCLUSION: 1. Multifocal areas of consolidation greatest in right lower lobe most characteristic of pneumonia. 2. Abnormal soft tissue density in the right axilla contiguous with abnormal soft tissue density and inflammatory change extending along the right lateral chest wall. This could represent hemorrhage and/or inflammatory change. There are no gas bubbles are infection cannot be excluded. 3. There is fluid again noted in the upper abdomen. 4. Moderate elevation of the right hemidiaphragm. Yuri Holt MD Abdomen/Pelvis CT 09/19/17 0000 Signed Impressions: Service Date/Time: Tuesday, September 19, 2017 15:59 - CONCLUSION: 1. There is no evidence of abscess. 2. Mild ascites Jens John MD Chest X-Ray 09/10/17 0600 Signed Impressions: Service Date/Time: Sunday, September 10, 2017 05:28 - CONCLUSION: Suboptimal Midinspiratory mildly rotated study with increased opacity greatest in the left lung. This could indicate infiltrate or could be partially artifactual and due to the Midinspiratory view and rotation. Yuri Holt MD Abdomen Fluoroscopy 09/08/17 0000 Signed Impressions: Service Date/Time: Friday, September 08, 2017 12:04 - CONCLUSION: Uncomplicated nasogastric tube placement as above. Tae Archuleta Jr., MD Abdomen/Pelvis CT 09/07/17 0000 Signed Impressions: Service Date/Time: August 12:20 - CONCLUSION: 1. Small bowel obstruction with transition point in the lower abdomen adjacent to an area of indurated mesentery. 2. Marked dilation of the intrahepatic biliary system , up to 2.2 cm, and some mild distention of the intrahepatic biliary system. Differential considerations include a distal biliary obstruction and reservoir effect from prior cholecystectomy. Tae Roblero MD PHYSICAL EXAM: GENERAL: Patient is on the vent. Unresponsive. HEENT: Head atraumatic, No icterus. Oropharynx intubated. NECK: Supple. No adenopathy. LUNGS: Clear BS. CARDIAC: Regular rate and rhythm. no murmurs, rubs or gallops. ABDOMEN: Obese. Soft. Unable to appreciate tenderness. R. Arnie drain has dark drainage. EXTREMITIES: No clubbing, cyanosis. 2+ edema at the hands and feet. SKIN: No rash. Warm and moist. NEURO: Unable to assess. IMPRESSION 1. Septic shock. 2. Post exploratory laparotomy and small bowel resection along with lysis of adhesions for small bowel perforation. 3. Peritonitis due to due to small bowel perforation. 4. Acute respiratory failure. 5. VAP gram negative. E. coli. 6. Acute kidney disease. ? sepsis related. ? medication. 7. Leukocytosis. WBC normal. 8. Mastoiditis on CT scan. RECOMMENDATIONS 1. Continue Zosyn. 2. Avoid nephrotoxic meds. 3. Follow clinical status. Jus Enriquez MD Sep 20, 2017 11:37
--- NOTE | 2017-09-20 13:45 | HHI.PR ---
Subjective Subjective Notes Starting CPAP trials today Slight improvement in creatinine though BUN remains high Objective Vitals/I&O Vital Signs Date Time Temp Pulse Resp B/P (MAP) Pulse Ox O2 Delivery O2 Flow Rate FiO2 09/20/17 11:26 97 30 09/20/17 06:00 100 09/20/17 04:00 98.1 19 164/63 (96) 09/19/17 09:20 Ventilator Labs Laboratory Tests Test 09/19/17 18:15 09/20/17 01:30 09/20/17 11:50 Lactic Acid Level 1.0 Potassium Level 3.2 Date/Time Source Procedure Growth Status 09/10/17 08:30 Blood Peripheral Aerobic Blood Culture - Final NO GROWTH IN 5 DAYS Complete 09/10/17 08:30 Blood Peripheral Anaerobic Blood Culture - Final NO GROWTH IN 5 DAYS Complete 09/08/17 21:10 Sputum Oral Tracheal Aspirate Gram Stain - Final Complete 09/08/17 21:10 Sputum Culture - Final Escherichia Coli Complete 09/09/17 09:45 Urine Clean Catch Urine Culture - Final NO GROWTH IN 48 HOURS. Complete 09/15/17 08:31 Wound Abdomen Gram Stain - Final Complete 09/15/17 08:31 Wound Abdomen Wound Culture - Final NO GROWTH IN 72 HRS.--AEROBICALLY OR ... Complete Radiology Last Impressions Chest X-Ray 09/19/17 0400 Signed Impressions: Service Date/Time: Tuesday, September 19, 2017 04:10 - CONCLUSION: 1. Interval improvement in bilateral pulmonary infiltrates. 2. The patient remains intubated. Yuri Holt MD Abdomen Fluoroscopy 09/08/17 0000 Signed Impressions: Service Date/Time: Friday, September 08, 2017 12:04 - CONCLUSION: Uncomplicated nasogastric tube placement as above. Tae Archuleta Jr., MD Abdomen/Pelvis CT 09/07/17 0000 Signed Impressions: Service Date/Time: August 12:20 - CONCLUSION: 1. Small bowel obstruction with transition point in the lower abdomen adjacent to an area of indurated mesentery. 2. Marked dilation of the intrahepatic biliary system , up to 2.2 cm, and some mild distention of the intrahepatic biliary system. Differential considerations include a distal biliary obstruction and reservoir effect from prior cholecystectomy. Tae Roblero MD Last Impressions Chest X-Ray 09/15/17 0000 Signed Impressions: Service Date/Time: Friday, September 15, 2017 04:17 - CONCLUSION: Stable chest x-ray with bilateral mid and lower lung zone airspace opacities. Damian Bedolla MD Abdomen Fluoroscopy 09/08/17 0000 Signed Impressions: Service Date/Time: Friday, September 08, 2017 12:04 - CONCLUSION: Uncomplicated nasogastric tube placement as above. Tae Archuleta Jr., MD Abdomen/Pelvis CT 09/07/17 0000 Signed Impressions: Service Date/Time: August 12:20 - CONCLUSION: 1. Small bowel obstruction with transition point in the lower abdomen adjacent to an area of indurated mesentery. 2. Marked dilation of the intrahepatic biliary system , up to 2.2 cm, and some mild distention of the intrahepatic biliary system. Differential considerations include a distal biliary obstruction and reservoir effect from prior cholecystectomy. Tae Roblero MD Cardiovascular: Regular Lungs: Clear Abdomen: Other (rare bowel sounds) Extremities: Perfused Wound Wound : Wound Location: Abdomen Appearance: Clean & Dry (Incision sites look good. Drainage in right ROSSI appears bilious ) A/P Assessment and Plan 61yo F with small bowel perforation and peritonitis -Continue with CPAP trails though patient will most likely have trach by Monday -Right ROSSI to suction, continue to monitor color - Will need to continue with TPN for now D/W Dr. Landin and Dr. aDvid Gomez,[facility] Sep 20, 2017 13:45
--- NOTE | 2017-09-20 17:21 | PD.PROCEDR ---
Procedure Note Procedure DX: Severe Sepsis (A41.9) OP: Insertion Left Subclavian Central Venous Line (34680) Procedure: Time out. Left chest prepped and draped. Left subclavian vein cannulated from beneath clavicle with 18 gauge spinal needle.Wire easily advanced. Catheter passed over wire to 19 cm. Lumens aspirated and flushed. Dressing applied. CXR ordered, will review. Jose Landin MD Sep 20, 2017 17:21
--- NOTE | 2017-09-20 17:42 | MH ---
cc: ESTEFANIA SMITH DATE OF ADMISSION 09/07/2017 Date of admission was HISTORY OF THE PRESENT ILLNESS This is a 61-year-old female who underwent a laparoscopic vertical sleeve gastrectomy by myself approximately 3 weeks prior. Her postop course was complicated by difficulties with meals. She was admitted about a week prior with nausea and vomiting. At that time a small bowel series CT scans were performed. She was diagnosed with a partial bowel obstruction which resolved prior to discharge. She was seen in my office 3 days prior at which time she was tolerating meals and having bowel movements. She states since then she has had difficulty with bowel movements. She began having difficulty tolerating meals once more. As a result she presented to the emergency room. A CT scan performed revealed findings of bowel obstruction and she was admitted once more. PAST MEDICAL HISTORY Significant for: 1. Arthritis. 2. Depression. 3. Sleep apnea. 4. Hypothyroidism. PAST SURGICAL HISTORY Significant for above. ALLERGIES THE PATIENT HAS ALLERGIES TO DARVOCET AND ADHESIVE TAPE. MEDICATIONS Can be obtained from the medical record. PHYSICAL EXAMINATION GENERAL: The patient is in no acute distress. HEENT: Pupils are equal and reactive. LUNGS: Respirations clear. CARDIOVASCULAR: Regular. GASTROINTESTINAL: Soft, positive tenderness in the lower abdomen. MUSCULOSKELETAL: No deformities. LABORATORY DATA The patient's white blood cell count was 13.5. IMAGING CT scan reviewed. ASSESSMENT The patient with a bowel obstruction, questionable etiology. We will take the patient to have an NG tube placed by interventional radiology and will take the patient to the operating room for laparoscopy with possible lysis of adhesions, possible bowel resection. Risks and benefits explained to the patient and her to include but not be exclusive to infection, bleeding, bowel injury, possibility of leak, possibility of reoperation. Technical aspects explained. The patient verbalized understanding, consent was obtained. MD SURJIT Galo/ARJUN /4:55 PM /5:23 PM
--- NOTE | 2017-09-20 18:04 | RADRPT ---
EXAM DATE/TIME: 09/20/2017 17:46 [place] COMPARISON: CHEST SINGLE AP, September 19, 2017, 9:44. INDICATIONS : Evaluate for left sided CVL placement. MEDICAL HISTORY : Rheumatoid arthritis. SURGICAL HISTORY : Gastric sleeve. ENCOUNTER: Subsequent ACUITY: 1 day PAIN SCORE: Non-responsive. LOCATION: chest FINDINGS: The left subclavian central line has its tip in the superior vena cava in good position. No pneumotho rax is noted. The remainder of the lines and tubes are stable. Bibasilar patchiness is unchanged. The heart is enlarged. CONCLUSION: 1. No pneumothorax status post placement of left subclavian central line which has its tip in the sup erior vena cava. 2. Stable bibasilar patchiness. 3. Stable cardiomegaly. Darion Oates MD on September 20, 2017 at 18:01 Board Certified Radiologist. This report was verified electronically.
[2017-09-20] MEDS ORDERED: ALTEPLASE RECOMBINANT 2 MG VIAL ONE (21:15)
--- NOTE | 2017-09-20 23:58 | MP ---
cc: ESTEFANIA SMITH DATE OF : 1955 DATE OF SURGERY: 09/08/2017 PREOPERATIVE DIAGNOSIS: Bowel obstruction. POSTOPERATIVE DIAGNOSIS: Bowel obstruction secondary to gangrenous small bowel with abscess. PROCEDURE Laparoscopy with lysis of adhesions, small-bowel resection drainage of abscess. SURGEON Estefania Smith MD. 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 Dr. Preciado's assistance was needed secondary to the complexity of the operation. Dr. Preciado participated in the operation providing essentially with manipulation and exposure during the operation. SPECIMEN: Small bowel. COMPLICATIONS None OPERATION The patient was brought to the operating room, placed on the operating table in supine position. Bilateral sequential inflation device placed on lower extremities. General anesthesia instituted. Bedolla catheter was placed. The abdomen was prepped and draped sterilely. A point in the left upper quadrant anesthetized with 0.25% Marcaine with epinephrine. A skin incision was made through old scar. A 5 mm port placed under direct vision, pneumoperitoneum created. Under direct vision a 12-mm left upper quadrant port, 5 mm left lower quadrant port, 5 mm right lower quadrant port was placed. Prior to placement of all ports the skin and peritoneum were anesthetized with 0.25% Marcaine with epinephrine. The abdominal cavity was inspected. There was small bowel adhesed to the abdominal wall with dilated bowel proximally. There was a large phlegmon in the left lower quadrant which had dilated bowel directly into this. The bowel on the abdominal wall after tedious dissection with blunt and sharp dissection, was taken down and the phlegmon was dissected free. There was gangrenous bowel, necrotic bowel with abscess. The bowel proximal seemed to be coiled in adhesions to the abdominal wall. There was a large amount of interloop adhesions. Once this was all dissected free and what appeared to be proximal bowel that was healthy, the endovascular stapler was used to divide the bowel in this region. Distally there was segment of bowel that appeared viable with segment distal to that, that was not so it was decided to perform two separate resections and two separate anastomoses. There were both staple anastomosis performed in the usual manner. The excised small bowel was removed from the abdominal cavity in the Endopouch. The abdominal cavity was irrigated with saline. The mesenteric defects were closed with 2-0 silk sutures. The patient's bowel appeared friable even though what appeared to be viable bowel. The anastomosis appeared intact and healthy. A drain was then left in the right lower quadrant and left lower quadrant. CO2 was released. All ports were removed. All skin incisions were closed with 4-0 Monocryl. The abdominal wall was cleaned and sterile dressing placed. The patient was awakened and taken to the recovery room. MD SURJIT Galo/VLADIMIR /4:47 PM /11:29 PM
[2017-09-21] VITALS (18 sets, daily range): BP systolic 145–156; BP diastolic 62–72; PULSE 76–95; RESP 18–24; TEMP 98–99.1; O2SAT 97–100
[2017-09-21] MEDS: ALBUMIN 25% INJ 100 ML IV SCH ×4 (00:36→23:52)
[2017-09-21] MEDS: LABETALOL HCL 100 MG/20 ML VIAL IV PUSH PRN (00:57)
[2017-09-21] MEDS: PIPERACIL-TAZO 2.25 GM PREMIX 50 ML IV SCH ×3 (02:44→18:05)
[2017-09-21 03:20] LABS: BICARBONATE 28.1 MEQ/L (21.0-32.0); MAGNESIUM 2.6 MG/DL (1.5-2.5); POTASSIUM 3.2 MEQ/L (3.5-5.1)
[2017-09-21] MEDS: LEVOTHYROXINE SODIUM 100 MCG VIAL IV PUSH SCH (05:42)
[2017-09-21] MEDS: INSULIN ASPART SUPPLEMENTAL SCALE SQ SCH ×5 (05:42→23:53)
[2017-09-21] MEDS: ENOXAPARIN SODIUM 30 MG/0.3 ML SYRINGE SQ SCH (05:42)
[2017-09-21] MEDS: levETIRAcetam INJ 500 MG in SODIUM CHLORIDE 0.9% INJ 100 ML IV SCH ×2 (08:03→21:22)
[2017-09-21] MEDS: MODAFINIL 200 MG TAB PO SCH (08:04)
[2017-09-21] MEDS: CHLORHEXIDINE 0.12% (ORAL KIT) 15 ML CUP MT SCH ×2 (08:04→20:00)
[2017-09-21] MEDS: ARTIFICIAL TEARS OPTH SOLN 15 ML BTL EACH EYE SCH ×3 (08:04→18:00)
[2017-09-21] MEDS: POTASSIUM CHLOR 20 MEQ PREMIX 100 ML IV SCH ×2 (08:04→09:35)
[2017-09-21] MEDS: RESP: ALBUTEROL 2.5 MG/IPRATROPIUM 0.5 MG NEB (PRN) NEB (08:45)
--- NOTE | 2017-09-21 08:54 | HHI.CCPN ---
Subjective Remarks/Hospital Course 61-year-old morbidly obese female presents, patient of Dr. Epstein, status post gastric sleeve 08-22-17 now presents with nonbloody emesis and unable to have a bowel movement for a couple days. She states to get that bowel movement she had a use a glycerin suppository and it was just loose. He was taken emergently to operating room and was found to have a small bowel ischemia. She underwent laparoscopic small bowel resection by Dr. Epstein and is postoperatively admitted to critical care unit SUBJ 09/09/17: Remains very critically ill. Profound septic shock requiring Levophed at 40 mcg/m, Des-Synephrine at 500 mcg/m, vasopressin at 0.04 international units, and to be demand 5 g per KG per minute. Urine output 150 mL overnight. Maintaining oxygen saturation. A.m. labs are pending at this time. Surprisingly patient is still mentating able to communicate. Remains on IV fentanyl infusion for pain control. Operative report is pending at this time. Received total of 9 L of crystalloid postoperatively. Receiving 2 units of PRBC. I will replace calcium. Lactic acid 3.5 at 4 AM 09/10: Critically ill but stable. Levophed down to 12 mcg/min, vasopressin at 0.04 IU. Uo 650 ml in 24 hours, bilateral abdominal drains with 1 L output. Right drain had greenish output overnight and now serosanguineous. D/ W Dr Epstein- he confirms perforation and gross contamination 09/11: Remains critically. FiO2 requirement up to 60%, I have increased PEEP to 10. CXR consistent with ARDS versus fluid overload. Creatinine increased to 1.24. Urine output 600 ml in 24 hours. CVP 18-20. Start IV Bumex 1 mg every 12 hours with additional 1 mg dose now. Levophed at 1 mcg/min, vasopressin at 0.04 IU 09/12: remains critically ill but stable to improving. SBP 130-140 on vasopressin will DC vasopressin. Chest x-ray shows bilateral pulmonary edema, but oxygenation has improved. Stable on 50% and PEEP of 10. Creatinine has worsened to 1.67 but urine output 1.5 L in 24 hours with Bumex. CVP remains about 20. Will increase Bumex to 1 mg every 8 hours and give additional 1 mg now. Closely monitor creatinine. 09/13: Weaning off vasopressors. SHEA persists. CXR with diffuse infiltrates , will switch modes for better recruitment hopefully. 09/14: Gas exchange improved on APRV. Renal function deteriorating. Remains fluid overloaded. 09/15: Gas exchange improved but renal function continues to deteriorate. Continue APRV - bases struggle for domain. 09/16: remains fairly encephalopathic, likely hypoactive delirium. renal function still worse today, although ? peaked?. continue APRV: body habitus would make de-recruitment almost certain if we switch to conventional mode of ventilation. still diuresing well. 09/17: creatinine continues to worsen despite adequate diuresis. BP lower today. will hold lasix drip. off all sedation x 12h and still remains encephalopathic, not following commands. may need renal replacement therapy at some point. severe electrolyte derrangements due to diuresis, and free water deficit. 09/18: Cr slightly downtrended. mental status still poor. long discussion with family and multiple members updated. remains off sedation. continuing to hold diuresis. 09/19: Cr still slightly downtrended. surgery concerned possible tube feeds in ROSSI drain after starting trickle TF yesterday. also, patient had more labored breathing on vent. etco2 70s, worsening hypercarbia and peak pressures. changed vent modes temporarily, increased minute ventilation, improved pco2, but then patient became acutely hypotensive. stat CXR ordered. clinically worse today. in addition, still no improvements in mental status. CT abd/pelvis with PO contrast ordered as well as CT brain. 09/20: CXR clear, will convert back to spontaneous ventilation to avoid CO2 retention. Marked azotemia, likely contributing to obtundation. BUN > 130. 09/21: Oxygenation remains improved. Peripheral edema resolving. Azotemia persists. BUN > 140 today. Objective Vital Signs Date Time Temp Pulse Resp B/P (MAP) Pulse Ox O2 Delivery O2 Flow Rate FiO2 09/21/17 07:40 98 30 09/21/17 06:00 85 09/21/17 04:00 99.1 24 156/67 (96) 09/19/17 09:20 Ventilator Intake and Output 09/21/17 09/21/17 09/22/17 08:00 16:00 00:00 Intake Total 150 ml Output Total 1910 ml Balance -1760 ml Result Diagram: 09/19/17 0441 09/21/17 0245 Objective Remarks GENERAL: morbidly obese, edematous female; encephalopathic and intubated. SKIN: Warm and dry. HEAD: Normocephalic. EYES: No scleral icterus. No injection or drainage. NECK: Trachea midline. Orotracheally intubated CARDIOVASCULAR: normal rate, regular rhythm. Heart sounds distant. JVD difficult to assess due to body habitus. RESPIRATORY: Breath sounds equal bilaterally. No wheezes or crackles. PRVC PEEP 12 GASTROINTESTINAL: Abdomen soft, tender, distended. Morbidly obese. left ROSSI drain with ?white fluid, small amount, does not appear purulent, ?tube feeds. right ROSSI with serous output. MUSCULOSKELETAL: No cyanosis, or edema. Well perfused. 2+ edema, diffuse. NEURO EXAM: Unresponsive, intubated, not following commands but withdraws all extremities. Pupils are round, reactive to light. Opens eyes spontaneously some. A/P Assessment and Plan Assessment: 61yF s/p gastric bypass complicated by small bowel obstruction, intra-abdominal sepsis, persistent respiratory failure, volume overload. remains off pathway. new respiratory distress and hypotension concerning, along with new drainage from ROSSI drains. will order CT head,chest,abd/pelvis with PO contrast (no IV contrast due to resolving SHEA). A/P: NEURO: Seizure disorder Metabolic encephalopathy Hypoactive Delirium - Currently off all sedation - Keppra IV. - hold sedating meds - fentanyl prn for positioning. - haldol for agitation - provigil for wakefulness. - ct brain this AM. RESP: Acute hypoxemic respiratory failure - worsening ARDS HCAP with E Coli - Continue mechanical ventilation/APRV mode, keep peak pressure <35 considering morbid obesity, Wean FiO2 and PEEP keeping SaO2> 90% - No weaning until hemodynamically stable - Vent bundle - DuoNeb every 6 hours scheduled and when necessary - Bilateral pulmonary opacities, fluid overload and acute lung injury/ARDS will need to consider tracheostomy if no significant improvements in next few days. Dr. Hernandez plans trach for Monday. CVS: Septic shock-resolved. Lactic acidosis - resolved. New Hypotension. - s/p Aggressive IV fluid resuscitation, postop received 9 L of normal saline, 2 units of PRBC - s/p hydrocortisone taper. give 1 dose hydrocortisone in case this is rebound adrenal insufficiency - levophed for map goal > 65 mmHg. - CT abd/pelvis to eval for intra-abdominal source of new hypotension, possible septic shock. GI: Small bowel ischemia/Perforation Peritonitis - POD # 12 S/P Laparoscopic SBR for gangrenous small bowel - Post op surgical management per Dr. Epstein general surgery - PO feeding per surgery. - IV Protonix. Started TPN 09/10/17 - ct abd/pelvis with PO contrast. FEN: Hypernatremia Free water deficit Hypokalemia Hypomagnesemia - aggressive electrolyte replacement - continue d5w @ 42cc/hr for free water replacement - recheck electrolytes. : Acute kidney failure - plateaued. Contraction alkalosis - improving. - ATN most likely from severe septic shock - hold lasix drip - Maintain Bedolla for accurate intake output HEME: Anemia secondary to acute blood loss - s/p 2 units of PRBC, transfuse to keep Hb >7.5 - Monitor H&H - Drop in platelet most likely sepsis, now improving. ID: Septic shock - resolved. Peritonitis HCAP with E Coli - Broad-spectrum antibiotic - Flagyl, Diflucan, cefepime. - Sputum culture E Coli - Blood cultures, urine culture follow up - ID following ENDO: Diabetes mellitus Hypocalcemia - Insulin sliding scale, and IV insulin with TPN - Electrolyte replacement per protocol - Continue levemir bid DVT GI prophylaxis - Teds SCDs - Pharmacological DVT prophylaxis Lovenox 40 mg subcutaneous every 12- reduced to 40 qd due to worsening creatinine - Protonix Lines: Right IJ line d/c'd 09/20, New left SCV CVL placed 09/20. D/W Dr. Hernandez, Overall impression: Remains critically ill. respiratory distress stabilized, new drainage from ROSSI drains, plan trach Monday. Jose Landin MD Sep 21, 2017 08:54
[2017-09-21] MEDS: PANTOPRAZOLE SODIUM 40 MG VIAL IV PUSH SCH (09:00)
[2017-09-21] MEDS: SODIUM CHLORIDE 0.9% FLUSH 10 ML FLUSH IV FLUSH SCH ×2 (09:00→21:00)
[2017-09-21] MEDS: INSULIN DETEMIR 100 UNITS/ML VIAL SQ SCH ×2 (09:00→21:42)
--- NOTE | 2017-09-21 12:42 | HHI.PR ---
Subjective Subjective Notes Remains clinically unchanged Tolerating CPAP Objective Vitals/I&O Vital Signs Date Time Temp Pulse Resp B/P (MAP) Pulse Ox O2 Delivery O2 Flow Rate FiO2 09/21/17 12:00 85 09/21/17 12:00 30 09/21/17 11:46 100 09/21/17 08:00 98.4 19 154/72 (99) 09/19/17 09:20 Ventilator Labs Laboratory Tests Test 09/20/17 14:25 09/21/17 02:45 Potassium Level 3.4 3.2 Blood Urea Nitrogen 142 Creatinine 2.57 Random Glucose 178 Calcium Level 8.0 Magnesium Level 2.6 Sodium Level 149 Chloride Level 110 Carbon Dioxide Level 28.1 Anion Gap 11 Estimat Glomerular Filtration Rate 19 Prealbumin 17 Date/Time Source Procedure Growth Status 09/10/17 08:30 Blood Peripheral Aerobic Blood Culture - Final NO GROWTH IN 5 DAYS Complete 09/10/17 08:30 Blood Peripheral Anaerobic Blood Culture - Final NO GROWTH IN 5 DAYS Complete 09/08/17 21:10 Sputum Oral Tracheal Aspirate Gram Stain - Final Complete 09/08/17 21:10 Sputum Culture - Final Escherichia Coli Complete 09/09/17 09:45 Urine Clean Catch Urine Culture - Final NO GROWTH IN 48 HOURS. Complete 09/15/17 08:31 Wound Abdomen Gram Stain - Final Complete 09/15/17 08:31 Wound Abdomen Wound Culture - Final NO GROWTH IN 72 HRS.--AEROBICALLY OR ... Complete Radiology Last Impressions Chest X-Ray 09/19/17 0400 Signed Impressions: Service Date/Time: Tuesday, September 19, 2017 04:10 - CONCLUSION: 1. Interval improvement in bilateral pulmonary infiltrates. 2. The patient remains intubated. Yuri Holt MD Abdomen Fluoroscopy 09/08/17 0000 Signed Impressions: Service Date/Time: Friday, September 08, 2017 12:04 - CONCLUSION: Uncomplicated nasogastric tube placement as above. Tae Archuleta Jr., MD Abdomen/Pelvis CT 09/07/17 0000 Signed Impressions: Service Date/Time: August 12:20 - CONCLUSION: 1. Small bowel obstruction with transition point in the lower abdomen adjacent to an area of indurated mesentery. 2. Marked dilation of the intrahepatic biliary system , up to 2.2 cm, and some mild distention of the intrahepatic biliary system. Differential considerations include a distal biliary obstruction and reservoir effect from prior cholecystectomy. Tae Roblero MD Last Impressions Chest X-Ray 09/15/17 0000 Signed Impressions: Service Date/Time: Friday, September 15, 2017 04:17 - CONCLUSION: Stable chest x-ray with bilateral mid and lower lung zone airspace opacities. Damian Bedolla MD Abdomen Fluoroscopy 09/08/17 0000 Signed Impressions: Service Date/Time: Friday, September 08, 2017 12:04 - CONCLUSION: Uncomplicated nasogastric tube placement as above. Tae Archuleta Jr., MD Abdomen/Pelvis CT 09/07/17 0000 Signed Impressions: Service Date/Time: August 12:20 - CONCLUSION: 1. Small bowel obstruction with transition point in the lower abdomen adjacent to an area of indurated mesentery. 2. Marked dilation of the intrahepatic biliary system , up to 2.2 cm, and some mild distention of the intrahepatic biliary system. Differential considerations include a distal biliary obstruction and reservoir effect from prior cholecystectomy. Tae Roblero MD Cardiovascular: Regular Lungs: Rhonchi Abdomen: Other (intermittent bowel sounds) Extremities: Perfused Wound Wound : Wound Location: Abdomen (ROSSI with bilious drainage) A/P Assessment and Plan 61yo F with small bowel perforation and peritonitis -Trach planned for Monday -Right ROSSI to suction, continue to monitor color - Flower Gomez Sep 21, 2017 12:42
[2017-09-21] MEDS ORDERED: MISC INFORMATION OTHER ONE (12:45)
--- NOTE | 2017-09-21 13:32 | HHI.NPPN ---
Subjective History of Present Illness Patient is a 61-year-old morbidly obese female who underwent gastric sleeve operation earlier this month on 08/23/17, patient has obstructive symptoms she was admitted and then as been doing well until when she developed the abdominal pain nausea vomiting and patient has been brought her back to the emergency. She had diagnoses of peritonitis, bowel obstruction, septic shock. Underwent surgical bowel resection due to perforation currently intubated Additional Remarks Patient remain intubated Objective Data Data 09/21/17 09/22/17 19:00 07:00 Intake Total 400 ml Balance 400 ml IV Total 400 ml Vital Signs Date Time Temp Pulse Resp B/P (MAP) Pulse Ox O2 Delivery O2 Flow Rate FiO2 09/21/17 12:00 85 09/21/17 12:00 30 09/21/17 11:46 100 30 09/21/17 10:00 89 09/21/17 10:00 90 09/21/17 08:00 88 09/21/17 08:00 98.4 89 19 154/72 (99) 98 09/21/17 08:00 30 09/21/17 07:40 98 30 09/21/17 07:40 30 09/21/17 06:00 85 09/21/17 04:10 97 30 09/21/17 04:00 30 09/21/17 04:00 91 09/21/17 04:00 99.1 92 24 156/67 (96) 97 09/21/17 02:00 90 09/21/17 01:38 98 30 09/21/17 00:00 30 09/21/17 00:00 98.6 91 21 154/69 (97) 97 09/21/17 00:00 95 09/20/17 22:00 97 09/20/17 20:39 99 30 09/20/17 20:00 95 09/20/17 20:00 30 09/20/17 20:00 99.1 92 20 148/67 (94) 97 09/20/17 18:00 98 09/20/17 16:45 98 30 09/20/17 16:00 92 09/20/17 16:00 99.1 92 15 148/62 (90) 99 09/20/17 16:00 30 09/20/17 14:00 98 -: 09/19/17 0441 09/21/17 0245 Physical Exam Neck Neck Exam: Neck Supple Pulmonary Resp Exam: Crackles, Rhonchi, Decreased Bases, Diminished Breath Sounds, Poor Inspiratory Effort Cardiology CV Exam: Regular Gastrointestinal/Abdomen GI Exam: Soft, Non-Tender, Distended, Bowel Sounds Absent Extremeties Extremities Exam: Pitting Edema, Dependent Edema Neurologic Neuro Exam: Sedated Assessment/Plan Problem List: (1) Acute renal failure ICD Codes: N17.9 - Acute kidney failure, unspecified Plan: Patient was in septic shock she was again hypotensive discussed with family Nonoliguric urine output good Cr declined 2.5 going for Trach in am CPAP trial Avoid nephrotoxic medications Creatinine about the same Potassium has been replaced She is doing well and can be observed for further recovery (2) Small bowel obstruction ICD Codes: K56.609 - Unspecified intestinal obstruction, unspecified as to partial versus complete obstruction Status: Acute Plan: Status post surgical intervention (3) Ileus following gastrointestinal surgery ICD Codes: K91.30 - Postprocedural intestinal obstruction, unspecified as to partial versus complete Plan: Continue to monitor Annita Bond MD Sep 21, 2017 13:32
[2017-09-21] MEDS: hydrALAZINE HCL 20 MG/ML VIAL IV PUSH PRN (14:17)
--- NOTE | 2017-09-21 14:43 | HHI.IDPN ---
Note Infectious Disease Note Patient is on CPAP. Not waking up or following commands. No distress. Afebrile. Presented to the emergency department on September 07 and was diagnosed with small bowel obstruction. She was taken to surgery and was found to have necrosed, perforated small bowel and she underwent small bowel resection. The patient previously had elective gastric sleeve on 08/22/2017. After that she was having nausea and vomiting and then difficulty passing stools. During the surgical procedure the patient had some purulent material within the abdomen. PAST MEDICAL HISTORY 1. Rheumatoid arthritis 2. Hypothyroidism 3. Gout 4. Depression 5. Seizure disorder 6. Attention deficit disorder 7. Cholecystectomy 8. Tonsillectomy 9. Ankle arthroplasty 10. Gastric sleeve. 08/22/17. ALLERGIES PROPOXYPHENE DARVOCET ADHESIVE TAPES ANTIBIOTICS Pip/Tazo. OBJECTIVE: Vital Signs Date Time Temp Pulse Resp B/P (MAP) Pulse Ox O2 Delivery O2 Flow Rate FiO2 09/21/17 12:00 85 09/21/17 12:00 30 09/21/17 11:46 100 30 09/21/17 10:00 89 09/21/17 10:00 90 09/21/17 08:00 88 09/21/17 08:00 98.4 89 19 154/72 (99) 98 09/21/17 08:00 30 09/21/17 07:40 98 30 09/21/17 07:40 30 09/21/17 06:00 85 09/21/17 04:10 97 30 09/21/17 04:00 30 09/21/17 04:00 91 09/21/17 04:00 99.1 92 24 156/67 (96) 97 09/21/17 02:00 90 09/21/17 01:38 98 30 09/21/17 00:00 30 09/21/17 00:00 98.6 91 21 154/69 (97) 97 09/21/17 00:00 95 09/20/17 22:00 97 09/20/17 20:39 99 30 09/20/17 20:00 95 09/20/17 20:00 30 09/20/17 20:00 99.1 92 20 148/67 (94) 97 09/20/17 18:00 98 09/20/17 16:45 98 30 09/20/17 16:00 92 09/20/17 16:00 99.1 92 15 148/62 (90) 99 09/20/17 16:00 30 Laboratory Tests Test 09/19/17 18:15 09/20/17 01:30 09/20/17 14:25 09/21/17 02:45 Lactic Acid Level 1.0 mmol/L Potassium Level 3.2 MEQ/L 3.4 MEQ/L 3.2 MEQ/L Blood Urea Nitrogen 142 MG/DL Creatinine 2.57 MG/DL Random Glucose 178 MG/DL Calcium Level 8.0 MG/DL Magnesium Level 2.6 MG/DL Sodium Level 149 MEQ/L Chloride Level 110 MEQ/L Carbon Dioxide Level 28.1 MEQ/L Anion Gap 11 MEQ/L Estimat Glomerular Filtration Rate 19 ML/MIN Prealbumin 17 MG/DL IMAGING: Chest X-Ray 09/20/17 0000 Signed Impressions: Service Date/Time: Wednesday, September 20, 2017 17:46 - CONCLUSION: 1. No pneumothorax status post placement of left subclavian central line which has its tip in the superior vena cava. 2. Stable bibasilar patchiness. 3. Stable cardiomegaly. Darion Oates MD Chest X-Ray 09/19/17 0400 Signed Impressions: Service Date/Time: Tuesday, September 19, 2017 04:10 - CONCLUSION: 1. Interval improvement in bilateral pulmonary infiltrates. 2. The patient remains intubated. Yuri Holt MD Head CT 09/19/17 0000 Signed Impressions: Service Date/Time: Tuesday, September 19, 2017 15:54 - CONCLUSION: 1. No evidence of acute intracranial pathology. No masses are identified. 2. Bilateral mastoiditis Jens John MD Chest X-Ray 09/19/17 0000 Signed Impressions: Service Date/Time: Tuesday, September 19, 2017 09:44 - CONCLUSION: Increasing bibasilar parenchymal changes worse on the right. Raghu Mcfarland MD FACR Chest CT 09/19/17 0000 Signed Impressions: Service Date/Time: Tuesday, September 19, 2017 15:59 - CONCLUSION: 1. Multifocal areas of consolidation greatest in right lower lobe most characteristic of pneumonia. 2. Abnormal soft tissue density in the right axilla contiguous with abnormal soft tissue density and inflammatory change extending along the right lateral chest wall. This could represent hemorrhage and/or inflammatory change. There are no gas bubbles are infection cannot be excluded. 3. There is fluid again noted in the upper abdomen. 4. Moderate elevation of the right hemidiaphragm. Yuri Holt MD Abdomen/Pelvis CT 09/19/17 0000 Signed Impressions: Service Date/Time: Tuesday, September 19, 2017 15:59 - CONCLUSION: 1. There is no evidence of abscess. 2. Mild ascites Jens John MD Chest X-Ray 09/10/17 0600 Signed Impressions: Service Date/Time: Sunday, September 10, 2017 05:28 - CONCLUSION: Suboptimal Midinspiratory mildly rotated study with increased opacity greatest in the left lung. This could indicate infiltrate or could be partially artifactual and due to the Midinspiratory view and rotation. Yuri Holt MD Abdomen Fluoroscopy 09/08/17 0000 Signed Impressions: Service Date/Time: Friday, September 08, 2017 12:04 - CONCLUSION: Uncomplicated nasogastric tube placement as above. Tae Archuleta Jr., MD Abdomen/Pelvis CT 09/07/17 0000 Signed Impressions: Service Date/Time: August 12:20 - CONCLUSION: 1. Small bowel obstruction with transition point in the lower abdomen adjacent to an area of indurated mesentery. 2. Marked dilation of the intrahepatic biliary system , up to 2.2 cm, and some mild distention of the intrahepatic biliary system. Differential considerations include a distal biliary obstruction and reservoir effect from prior cholecystectomy. Tae Roblero MD PHYSICAL EXAM: GENERAL: Patient is Unresponsive. HEENT: Head atraumatic, No icterus. Oropharynx intubated. NECK: Supple. No adenopathy. LUNGS: Clear BS. CARDIAC: Regular rate and rhythm. no murmurs, rubs or gallops. ABDOMEN: Obese. Soft. R. Arnie drain has dark drainage. EXTREMITIES: No clubbing, cyanosis. 2+ edema at the hands and feet. SKIN: No rash. Warm and moist. NEURO: Unable to assess. IMPRESSION 1. Septic shock. 2. Post exploratory laparotomy and small bowel resection along with lysis of adhesions for small bowel perforation. 3. Peritonitis due to due to small bowel perforation. 4. Acute respiratory failure. 5. VAP gram negative. E. coli. 6. Acute kidney disease. ? sepsis related. ? medication. 7. Leukocytosis. Improved. 8. Mastoiditis on CT scan. RECOMMENDATIONS 1. Continue Zosyn. 2. Avoid nephrotoxic meds. 3. Follow clinical status. 4. Monitor temp and WBC. Jus Enriquez MD Sep 21, 2017 14:43
[2017-09-21 18:05] LABS: APTT (PATIENT) 29.9 SEC (24.3-30.1); INTERNATIONAL NORMALIZED RATIO 1.4 RATIO; PROTHROMBIN TIME - PATIENT 13.8 SEC (9.8-11.6)
[2017-09-21] MEDS: MULTIVITAMIN INJ 10 ML, FOLIC ACID INJ 1 MG, INSULIN HUMAN REGULAR INJ 40 UNITS in AMIN... IV-CENTRAL SCH (20:53)
[2017-09-21] MEDS: DEXTROSE 5% IN WATE 1000ML INJ 1,000 ML IV SCH (21:54)
[2017-09-22] VITALS (15 sets, daily range): BP systolic 136–160; BP diastolic 56–74; PULSE 78–94; RESP 19–25; TEMP 98.7–99.9; O2SAT 95–97
[2017-09-22] MEDS: PIPERACIL-TAZO 2.25 GM PREMIX 50 ML IV SCH ×3 (03:25→18:49)
[2017-09-22 05:41] LABS: BASOPHIL # 0.1 TH/MM3 (0-0.2); BASOPHIL % 0.6 % (0.0-2.0); EOSINOPHIL # 0.1 TH/MM3 (0-0.4); EOSINOPHIL % 1.3 % (0.0-4.0); LYMPH % 5.6 % (9.0-44.0); LYMPHOCYTE # 0.5 TH/MM3 (1.0-4.8); MEAN CELL VOLUME 89.1 FL (80.0-100.0); MEAN CORPUSCULAR HEMOGLOBIN 29.9 PG (27.0-34.0); MEAN CORPUSCULAR HGB CONC 33.5 % (32.0-36.0); MONO % 6.1 % (0.0-8.0); NEUT % 86.4 % (16.0-70.0); PLATELET COUNT 201 TH/MM3 (150-450); RED BLOOD COUNT 2.33 MIL/MM3 (4.00-5.30); RED CELL DISTRIBUTION WIDTH 16.3 % (11.6-17.2); WHITE BLOOD COUNT 9.2 TH/MM3 (4.0-11.0)
[2017-09-22 05:43] LABS: HEMO FLAGS DIFF FINAL
[2017-09-22 05:47] LABS: BICARBONATE 26.6 MEQ/L (21.0-32.0); HEMATOCRIT 20.8 % (35.0-46.0); POTASSIUM 3.1 MEQ/L (3.5-5.1)
[2017-09-22] MEDS: INSULIN ASPART SUPPLEMENTAL SCALE SQ SCH ×4 (06:08→23:12)
[2017-09-22] MEDS: LEVOTHYROXINE SODIUM 100 MCG VIAL IV PUSH SCH (06:11)
[2017-09-22] MEDS: ENOXAPARIN SODIUM 30 MG/0.3 ML SYRINGE SQ SCH (06:31)
[2017-09-22] MEDS: LABETALOL HCL 100 MG/20 ML VIAL IV PUSH PRN ×2 (06:33→16:13)
[2017-09-22] MEDS ORDERED: POTASSIUM CHLOR 40 MEQ PREMIX 100 ML IV ONE ×2 (07:00→14:00)
[2017-09-22] MEDS: CHLORHEXIDINE 0.12% (ORAL KIT) 15 ML CUP MT SCH ×2 (07:58→20:32)
[2017-09-22] MEDS: ALBUMIN 25% INJ 100 ML IV SCH ×3 (07:58→23:12)
[2017-09-22] MEDS: ARTIFICIAL TEARS OPTH SOLN 15 ML BTL EACH EYE SCH ×3 (07:58→18:00)
[2017-09-22] MEDS: levETIRAcetam INJ 500 MG in SODIUM CHLORIDE 0.9% INJ 100 ML IV SCH ×2 (08:43→20:31)
[2017-09-22] MEDS: SODIUM CHLORIDE 0.9% FLUSH 10 ML FLUSH IV FLUSH SCH ×2 (08:43→20:32)
[2017-09-22] MEDS: PANTOPRAZOLE SODIUM 40 MG VIAL IV PUSH SCH (08:43)
[2017-09-22] MEDS: INSULIN DETEMIR 100 UNITS/ML VIAL SQ SCH ×2 (08:43→20:32)
[2017-09-22] MEDS: MODAFINIL 200 MG TAB PO SCH (09:45)
--- NOTE | 2017-09-22 11:12 | HHI.NPPN ---
Subjective History of Present Illness Patient is a 61-year-old morbidly obese female who underwent gastric sleeve operation earlier this month on 08/23/17, patient has obstructive symptoms she was admitted and then as been doing well until when she developed the abdominal pain nausea vomiting and patient has been brought her back to the emergency. She had diagnoses of peritonitis, bowel obstruction, septic shock. Underwent surgical bowel resection due to perforation currently intubated Additional Remarks Patient remain intubated Objective Data Data 09/22/17 09/23/17 19:00 07:00 Intake Total 300 ml Balance 300 ml IV Total 300 ml Vital Signs Date Time Temp Pulse Resp B/P (MAP) Pulse Ox O2 Delivery O2 Flow Rate FiO2 09/22/17 08:04 97 30 09/22/17 08:04 30 09/22/17 08:00 30 09/22/17 08:00 99.9 93 25 136/56 (82) 97 Automatic Cuff 09/22/17 08:00 93 09/22/17 06:00 92 09/22/17 04:00 99.0 82 19 138/60 (86) 95 09/22/17 04:00 82 09/22/17 04:00 30 09/22/17 03:52 95 24 09/22/17 02:00 94 09/22/17 00:25 96 30 09/22/17 00:00 84 09/22/17 00:00 99.8 84 22 160/74 (102) 96 09/22/17 00:00 30 09/21/17 22:00 90 09/21/17 21:00 30 09/21/17 20:45 97 30 09/21/17 20:00 92 09/21/17 20:00 98.0 92 22 147/68 (94) 97 09/21/17 20:00 30 09/21/17 18:00 89 09/21/17 16:00 98.0 90 20 145/65 (91) 97 09/21/17 16:00 30 09/21/17 16:00 76 09/21/17 15:33 98 30 09/21/17 14:00 88 09/21/17 12:00 85 09/21/17 12:00 30 09/21/17 12:00 98.4 86 18 150/62 (91) 99 09/21/17 11:46 100 30 -: 09/22/17 0500 09/22/17 0500 Physical Exam Neck Neck Exam: Neck Supple Pulmonary Resp Exam: Crackles, Rhonchi, Decreased Bases, Diminished Breath Sounds, Poor Inspiratory Effort Cardiology CV Exam: Regular Gastrointestinal/Abdomen GI Exam: Soft, Non-Tender, Distended, Bowel Sounds Absent Extremeties Extremities Exam: Pitting Edema, Dependent Edema Neurologic Neuro Exam: Sedated Assessment/Plan Problem List: (1) Acute renal failure ICD Codes: N17.9 - Acute kidney failure, unspecified Plan: Patient was in septic shock she was again hypotensive discussed with family Nonoliguric urine output good Cr declined 2.3 on IVF D5 75 cc/hr Avoid nephrotoxic medications Creatinine about the same Potassium has been replaced She is doing well and can be observed for further recovery (2) Small bowel obstruction ICD Codes: K56.609 - Unspecified intestinal obstruction, unspecified as to partial versus complete obstruction Status: Acute Plan: Status post surgical intervention (3) Ileus following gastrointestinal surgery ICD Codes: K91.30 - Postprocedural intestinal obstruction, unspecified as to partial versus complete Plan: Continue to monitor Annita Bond MD Sep 22, 2017 11:12
--- NOTE | 2017-09-22 11:59 | HHI.CCPN ---
Subjective Remarks/Hospital Course 61-year-old morbidly obese female presents, patient of Dr. Epstein, status post gastric sleeve 08-22-17 now presents with nonbloody emesis and unable to have a bowel movement for a couple days. She states to get that bowel movement she had a use a glycerin suppository and it was just loose. He was taken emergently to operating room and was found to have a small bowel ischemia. She underwent laparoscopic small bowel resection by Dr. Epstein and is postoperatively admitted to critical care unit SUBJ 09/09/17: Remains very critically ill. Profound septic shock requiring Levophed at 40 mcg/m, Des-Synephrine at 500 mcg/m, vasopressin at 0.04 international units, and to be demand 5 g per KG per minute. Urine output 150 mL overnight. Maintaining oxygen saturation. A.m. labs are pending at this time. Surprisingly patient is still mentating able to communicate. Remains on IV fentanyl infusion for pain control. Operative report is pending at this time. Received total of 9 L of crystalloid postoperatively. Receiving 2 units of PRBC. I will replace calcium. Lactic acid 3.5 at 4 AM 09/10: Critically ill but stable. Levophed down to 12 mcg/min, vasopressin at 0.04 IU. Uo 650 ml in 24 hours, bilateral abdominal drains with 1 L output. Right drain had greenish output overnight and now serosanguineous. D/ W Dr Epstein- he confirms perforation and gross contamination 09/11: Remains critically. FiO2 requirement up to 60%, I have increased PEEP to 10. CXR consistent with ARDS versus fluid overload. Creatinine increased to 1.24. Urine output 600 ml in 24 hours. CVP 18-20. Start IV Bumex 1 mg every 12 hours with additional 1 mg dose now. Levophed at 1 mcg/min, vasopressin at 0.04 IU 09/12: remains critically ill but stable to improving. SBP 130-140 on vasopressin will DC vasopressin. Chest x-ray shows bilateral pulmonary edema, but oxygenation has improved. Stable on 50% and PEEP of 10. Creatinine has worsened to 1.67 but urine output 1.5 L in 24 hours with Bumex. CVP remains about 20. Will increase Bumex to 1 mg every 8 hours and give additional 1 mg now. Closely monitor creatinine. 09/13: Weaning off vasopressors. SHEA persists. CXR with diffuse infiltrates , will switch modes for better recruitment hopefully. 09/14: Gas exchange improved on APRV. Renal function deteriorating. Remains fluid overloaded. 09/15: Gas exchange improved but renal function continues to deteriorate. Continue APRV - bases struggle for domain. 09/16: remains fairly encephalopathic, likely hypoactive delirium. renal function still worse today, although ? peaked?. continue APRV: body habitus would make de-recruitment almost certain if we switch to conventional mode of ventilation. still diuresing well. 09/17: creatinine continues to worsen despite adequate diuresis. BP lower today. will hold lasix drip. off all sedation x 12h and still remains encephalopathic, not following commands. may need renal replacement therapy at some point. severe electrolyte derrangements due to diuresis, and free water deficit. 09/18: Cr slightly downtrended. mental status still poor. long discussion with family and multiple members updated. remains off sedation. continuing to hold diuresis. 09/19: Cr still slightly downtrended. surgery concerned possible tube feeds in ROSSI drain after starting trickle TF yesterday. also, patient had more labored breathing on vent. etco2 70s, worsening hypercarbia and peak pressures. changed vent modes temporarily, increased minute ventilation, improved pco2, but then patient became acutely hypotensive. stat CXR ordered. clinically worse today. in addition, still no improvements in mental status. CT abd/pelvis with PO contrast ordered as well as CT brain. 09/20: CXR clear, will convert back to spontaneous ventilation to avoid CO2 retention. Marked azotemia, likely contributing to obtundation. BUN > 130. 09/21: Oxygenation remains improved. Peripheral edema resolving. Azotemia persists. BUN > 140 today. 09/22: Slightly improving enough renal functions. H&H critical, no signs of active bleeding, more likely iatrogenic due to frequent blood draws and dilutional. Objective Vital Signs Date Time Temp Pulse Resp B/P (MAP) Pulse Ox O2 Delivery O2 Flow Rate FiO2 09/22/17 11:24 97 30 09/22/17 08:00 99.9 93 25 136/56 (82) Automatic Cuff 09/19/17 09:20 Ventilator Intake and Output 09/22/17 09/22/17 09/23/17 08:00 16:00 00:00 Intake Total 150 ml 350 ml Output Total 1960 ml Balance -1810 ml 350 ml Result Diagram: 09/22/17 0500 09/22/17 0500 Objective Remarks GENERAL: morbidly obese, edematous female; encephalopathic and intubated. SKIN: Warm and dry. HEAD: Normocephalic. EYES: No scleral icterus. No injection or drainage. NECK: Trachea midline. Orotracheally intubated CARDIOVASCULAR: normal rate, regular rhythm. Heart sounds distant. JVD difficult to assess due to body habitus. RESPIRATORY: Breath sounds equal bilaterally. No wheezes or crackles. PRVC PEEP 12 GASTROINTESTINAL: Abdomen soft, tender, distended. Morbidly obese. left ROSSI drain with ?white fluid, small amount, does not appear purulent, ?tube feeds. right ROSSI with serous output. MUSCULOSKELETAL: No cyanosis, or edema. Well perfused. 2+ edema, diffuse. NEURO EXAM: Unresponsive, intubated, not following commands but withdraws all extremities. Pupils are round, reactive to light. Opens eyes spontaneously some. A/P Assessment and Plan Assessment: 61yF s/p gastric bypass complicated by small bowel obstruction, intra-abdominal sepsis, persistent respiratory failure, volume overload. remains off pathway. new respiratory distress and hypotension concerning, along with new drainage from ROSSI drains. will order CT head,chest,abd/pelvis with PO contrast (no IV contrast due to resolving SHEA). A/P: NEURO: Seizure disorder Metabolic encephalopathy Hypoactive Delirium - Currently off all sedation - Keppra IV. - hold sedating meds - fentanyl prn for positioning. - haldol for agitation - provigil for wakefulness. - ct brain yesterday without acute changes. RESP: Acute hypoxemic respiratory failure - worsening ARDS HCAP with E Coli - Continue mechanical ventilation/APRV mode, keep peak pressure <35 considering morbid obesity, Wean FiO2 and PEEP keeping SaO2> 90% - No weaning until hemodynamically stable - Vent bundle - DuoNeb every 6 hours scheduled and when necessary - Bilateral pulmonary opacities, fluid overload and acute lung injury/ARDS - Tracheostomy by Dr. Preciado tomorrow CVS: Septic shock-resolved. Lactic acidosis - resolved. New Hypotension. - s/p Aggressive IV fluid resuscitation, postop received 9 L of normal saline, 2 units of PRBC - s/p hydrocortisone taper. give 1 dose hydrocortisone in case this is rebound adrenal insufficiency - levophed for map goal > 65 mmHg. - CT abd/pelvis to eval for intra-abdominal source of new hypotension, possible septic shock. GI: Small bowel ischemia/Perforation Peritonitis - POD # 12 S/P Laparoscopic SBR for gangrenous small bowel - Post op surgical management per Dr. Epstein general surgery - PO feeding per surgery. - IV Protonix. Started TPN 09/10/17 - ct abd/pelvis with PO contrast showing no abscess FEN: Hypernatremia Free water deficit Hypokalemia Hypomagnesemia - aggressive electrolyte replacement - continue d5w @ 42cc/hr for free water replacement - recheck electrolytes. : Acute kidney failure - plateaued. Contraction alkalosis - improving. - ATN most likely from severe septic shock - hold lasix drip - Maintain [place] for accurate intake output HEME: Anemia secondary to acute blood loss - s/p 2 units of PRBC, transfuse to keep Hb >7.5 - Monitor H&H - Drop in platelet most likely sepsis, now improving. ID: Septic shock - resolved. Peritonitis HCAP with E Coli - Broad-spectrum antibiotic - Flagyl, Diflucan, cefepime. - Sputum culture E Coli - Blood cultures, urine culture follow up - ID following ENDO: Diabetes mellitus Hypocalcemia - Insulin sliding scale, and IV insulin with TPN - Electrolyte replacement per protocol - Continue levemir bid DVT GI prophylaxis - Teds SCDs - Pharmacological DVT prophylaxis Lovenox 40 mg subcutaneous every 12- reduced to 40 qd due to worsening creatinine - Protonix Lines: Right IJ line d/c'd 09/20, New left SCV CVL placed 09/20. D/W Dr. Preciado Overall impression: Remains critically ill. respiratory distress stabilized, new drainage from ROSSI drains, plan trach tomorrow. Critical Care: The total critical care time was 35 minutes. Time to perform other separately billable procedures was not included in the critical care time. Eric Bazan MD Sep 22, 2017 11:59 am
--- NOTE | 2017-09-22 12:52 | HHI.PR ---
Subjective Subjective Notes Somewhat more alert today, questionable tracking Scheduled for track in the OR today Objective Vitals/I&O Vital Signs Date Time Temp Pulse Resp B/P (MAP) Pulse Ox O2 Delivery O2 Flow Rate FiO2 09/22/17 12:00 98.7 92 25 142/62 (88) 97 09/22/17 11:24 30 09/19/17 09:20 Ventilator Labs Laboratory Tests Test 09/21/17 17:25 09/22/17 05:00 Prothrombin Time 13.8 Prothromb Time International Ratio 1.4 Activated Partial Thromboplast Time 29.9 White Blood Count 9.2 Red Blood Count 2.33 Hemoglobin 7.0 Hematocrit 20.8 Mean Corpuscular Volume 89.1 Mean Corpuscular Hemoglobin 29.9 Mean Corpuscular Hemoglobin Concent 33.5 Red Cell Distribution Width 16.3 Platelet Count 201 Mean Platelet Volume 9.4 Neutrophils (%) (Auto) 86.4 Lymphocytes (%) (Auto) 5.6 Monocytes (%) (Auto) 6.1 Eosinophils (%) (Auto) 1.3 Basophils (%) (Auto) 0.6 Neutrophils # (Auto) 8.0 Lymphocytes # (Auto) 0.5 Monocytes # (Auto) 0.6 Eosinophils # (Auto) 0.1 Basophils # (Auto) 0.1 CBC Comment DIFF FINAL Differential Comment Blood Urea Nitrogen 141 Creatinine 2.37 Random Glucose 167 Calcium Level 8.3 Sodium Level 144 Potassium Level 3.1 Chloride Level 107 Carbon Dioxide Level 26.6 Anion Gap 10 Estimat Glomerular Filtration Rate 21 Date/Time Source Procedure Growth Status 09/10/17 08:30 Blood Peripheral Aerobic Blood Culture - Final NO GROWTH IN 5 DAYS Complete 09/10/17 08:30 Blood Peripheral Anaerobic Blood Culture - Final NO GROWTH IN 5 DAYS Complete 09/08/17 21:10 Sputum Oral Tracheal Aspirate Gram Stain - Final Complete 09/08/17 21:10 Sputum Culture - Final Escherichia Coli Complete 09/09/17 09:45 Urine Clean Catch Urine Culture - Final NO GROWTH IN 48 HOURS. Complete 09/15/17 08:31 Wound Abdomen Gram Stain - Final Complete 09/15/17 08:31 Wound Abdomen Wound Culture - Final NO GROWTH IN 72 HRS.--AEROBICALLY OR ... Complete Radiology Last Impressions Chest X-Ray 09/20/17 0000 Signed Impressions: Service Date/Time: Wednesday, September 20, 2017 17:46 - CONCLUSION: 1. No pneumothorax status post placement of left subclavian central line which has its tip in the superior vena cava. 2. Stable bibasilar patchiness. 3. Stable cardiomegaly. Darion Oates MD Head CT 09/19/17 0000 Signed Impressions: Service Date/Time: Tuesday, September 19, 2017 15:54 - CONCLUSION: 1. No evidence of acute intracranial pathology. No masses are identified. 2. Bilateral mastoiditis Jens John MD Chest CT 09/19/17 0000 Signed Impressions: Service Date/Time: Tuesday, September 19, 2017 15:59 - CONCLUSION: 1. Multifocal areas of consolidation greatest in right lower lobe most characteristic of pneumonia. 2. Abnormal soft tissue density in the right axilla contiguous with abnormal soft tissue density and inflammatory change extending along the right lateral chest wall. This could represent hemorrhage and/or inflammatory change. There are no gas bubbles are infection cannot be excluded. 3. There is fluid again noted in the upper abdomen. 4. Moderate elevation of the right hemidiaphragm. Yuri Holt MD Abdomen/Pelvis CT 09/19/17 0000 Signed Impressions: Service Date/Time: Tuesday, September 19, 2017 15:59 - CONCLUSION: 1. There is no evidence of abscess. 2. Mild ascites Jens John MD Abdomen Fluoroscopy 09/08/17 0000 Signed Impressions: Service Date/Time: Friday, September 08, 2017 12:04 - CONCLUSION: Uncomplicated nasogastric tube placement as above. Tae Archuleta Jr., MD Cardiovascular: Regular Lungs: Rhonchi Abdomen: Other (intermittent bowel sounds) Extremities: Perfused Wound Wound : Wound Location: Abdomen (Right ROSSI with moderate amount of bilious drainage ) A/P Assessment and Plan 61yo F with small bowel perforation and peritonitis -Receiving 2u PRBC -Right ROSSI to suction, continue to monitor color -Remain on TPN for now due to increased output from ROSSI, will continue to monitor conservatively for now Flower Gomez [facility] Sep 22, 2017 12:52
--- NOTE | 2017-09-22 13:10 | HHI.IDPN ---
Note Infectious Disease Note Patient is on CPAP. Has eyes open. Wriggles foot to command for me. Afebrile. Plans for tracheostomy today. Presented to the emergency department on September 07 and was diagnosed with small bowel obstruction. She was taken to surgery and was found to have necrosed, perforated small bowel and she underwent small bowel resection. The patient previously had elective gastric sleeve on 08/22/2017. After that she was having nausea and vomiting and then difficulty passing stools. During the surgical procedure the patient had some purulent material within the abdomen. PAST MEDICAL HISTORY 1. Rheumatoid arthritis 2. Hypothyroidism 3. Gout 4. Depression 5. Seizure disorder 6. Attention deficit disorder 7. Cholecystectomy 8. Tonsillectomy 9. Ankle arthroplasty 10. Gastric sleeve. 08/22/17. ALLERGIES PROPOXYPHENE DARVOCET ADHESIVE TAPES ANTIBIOTICS Pip/Tazobactam. OBJECTIVE: Vital Signs Date Time Temp Pulse Resp B/P (MAP) Pulse Ox O2 Delivery O2 Flow Rate FiO2 09/22/17 12:00 98.7 92 25 142/62 (88) 97 09/22/17 12:00 92 09/22/17 11:24 97 30 09/22/17 08:04 97 30 09/22/17 08:04 30 09/22/17 08:00 30 09/22/17 08:00 99.9 93 25 136/56 (82) 97 Automatic Cuff 09/22/17 08:00 93 09/22/17 06:00 92 09/22/17 04:00 99.0 82 19 138/60 (86) 95 09/22/17 04:00 82 09/22/17 04:00 30 09/22/17 03:52 95 24 09/22/17 02:00 94 09/22/17 00:25 96 30 09/22/17 00:00 84 09/22/17 00:00 99.8 84 22 160/74 (102) 96 09/22/17 00:00 30 09/21/17 22:00 90 09/21/17 21:00 30 09/21/17 20:45 97 30 09/21/17 20:00 92 09/21/17 20:00 98.0 92 22 147/68 (94) 97 09/21/17 20:00 30 09/21/17 18:00 89 09/21/17 16:00 98.0 90 20 145/65 (91) 97 09/21/17 16:00 30 09/21/17 16:00 76 09/21/17 15:33 98 30 09/21/17 14:00 88 Laboratory Tests Test 09/22/17 05:00 White Blood Count 9.2 TH/MM3 Red Blood Count 2.33 MIL/MM3 Hemoglobin 7.0 GM/DL Hematocrit 20.8 % Mean Corpuscular Volume 89.1 FL Mean Corpuscular Hemoglobin 29.9 PG Mean Corpuscular Hemoglobin Concent 33.5 % Red Cell Distribution Width 16.3 % Platelet Count 201 TH/MM3 Mean Platelet Volume 9.4 FL Neutrophils (%) (Auto) 86.4 % Lymphocytes (%) (Auto) 5.6 % Monocytes (%) (Auto) 6.1 % Eosinophils (%) (Auto) 1.3 % Basophils (%) (Auto) 0.6 % Neutrophils # (Auto) 8.0 TH/MM3 Lymphocytes # (Auto) 0.5 TH/MM3 Monocytes # (Auto) 0.6 TH/MM3 Eosinophils # (Auto) 0.1 TH/MM3 Basophils # (Auto) 0.1 TH/MM3 CBC Comment DIFF FINAL Differential Comment Laboratory Tests Test 09/20/17 14:25 09/21/17 02:45 09/22/17 05:00 Potassium Level 3.4 MEQ/L 3.2 MEQ/L 3.1 MEQ/L Blood Urea Nitrogen 142 MG/DL 141 MG/DL Creatinine 2.57 MG/DL 2.37 MG/DL Random Glucose 178 MG/DL 167 MG/DL Calcium Level 8.0 MG/DL 8.3 MG/DL Magnesium Level 2.6 MG/DL Sodium Level 149 MEQ/L 144 MEQ/L Chloride Level 110 MEQ/L 107 MEQ/L Carbon Dioxide Level 28.1 MEQ/L 26.6 MEQ/L Anion Gap 11 MEQ/L 10 MEQ/L Estimat Glomerular Filtration Rate 19 ML/MIN 21 ML/MIN Prealbumin 17 MG/DL IMAGING: Chest X-Ray 09/20/17 0000 Signed Impressions: Service Date/Time: Wednesday, September 20, 2017 17:46 - CONCLUSION: 1. No pneumothorax status post placement of left subclavian central line which has its tip in the superior vena cava. 2. Stable bibasilar patchiness. 3. Stable cardiomegaly. Darion Oates MD Chest X-Ray 09/19/17 0400 Signed Impressions: Service Date/Time: Tuesday, September 19, 2017 04:10 - CONCLUSION: 1. Interval improvement in bilateral pulmonary infiltrates. 2. The patient remains intubated. Yuri Holt MD Head CT 09/19/17 0000 Signed Impressions: Service Date/Time: Tuesday, September 19, 2017 15:54 - CONCLUSION: 1. No evidence of acute intracranial pathology. No masses are identified. 2. Bilateral mastoiditis Jens John MD Chest X-Ray 09/19/17 0000 Signed Impressions: Service Date/Time: Tuesday, September 19, 2017 09:44 - CONCLUSION: Increasing bibasilar parenchymal changes worse on the right. Raghu Mcfarland MD FACR Chest CT 09/19/17 0000 Signed Impressions: Service Date/Time: Tuesday, September 19, 2017 15:59 - CONCLUSION: 1. Multifocal areas of consolidation greatest in right lower lobe most characteristic of pneumonia. 2. Abnormal soft tissue density in the right axilla contiguous with abnormal soft tissue density and inflammatory change extending along the right lateral chest wall. This could represent hemorrhage and/or inflammatory change. There are no gas bubbles are infection cannot be excluded. 3. There is fluid again noted in the upper abdomen. 4. Moderate elevation of the right hemidiaphragm. Yuri Holt MD Abdomen/Pelvis CT 09/19/17 0000 Signed Impressions: Service Date/Time: Tuesday, September 19, 2017 15:59 - CONCLUSION: 1. There is no evidence of abscess. 2. Mild ascites Jens John MD PHYSICAL EXAM: GENERAL: No acute distress. HEENT: Head atraumatic, No icterus. Oropharynx intubated. NECK: Supple. No adenopathy. LUNGS: Clear BS. CARDIAC: Regular rate and rhythm. no murmurs, rubs or gallops. ABDOMEN: Obese. Soft. R. Arnie drain has dark drainage. EXTREMITIES: No clubbing, cyanosis. 1+ edema at the hands and feet. SKIN: No rash. Warm and moist. NEURO: Unable to assess. IMPRESSION 1. Septic shock. 2. Post exploratory laparotomy and small bowel resection along with lysis of adhesions for small bowel perforation. 3. Peritonitis due to due to small bowel perforation. 4. Acute respiratory failure. 5. VAP gram negative. E. coli. 6. Acute kidney disease. ? sepsis related. ? medication. 7. Leukocytosis. Improved. 8. Mastoiditis on CT scan. RECOMMENDATIONS 1. Continue Zosyn. 2. Avoid nephrotoxic meds. 3. Follow clinical status. 4. Monitor temp. Jus Enriquez MD Sep 22, 2017 13:10
[2017-09-22] MEDS ORDERED: LIDOCAINE 1%/EPINEPHrine 1:100,000 SOLN 50 ML VIAL ONE (14:53)
[2017-09-22] MEDS: DEXTROSE 5% IN WATE 1000ML INJ 1,000 ML IV SCH ×2 (17:00→23:15)
[2017-09-22] MEDS: MULTIVITAMIN INJ 10 ML, FOLIC ACID INJ 1 MG, INSULIN HUMAN REGULAR INJ 40 UNITS in AMIN... IV-CENTRAL SCH (20:31)
[2017-09-23] VITALS (18 sets, daily range): BP systolic 142–157; BP diastolic 64–73; PULSE 76–94; RESP 16–26; TEMP 99.6–100.6; O2SAT 93–100
[2017-09-23] MEDS ORDERED: POVIDONE IODINE 5% (ANTISEPSIS KIT) 4 APPLICATIONS EACH NARE PRN (00:15)
[2017-09-23] MEDS ORDERED: SODIUM CHLORID 0.9% 500 ML IV PRN (00:15)
[2017-09-23] MEDS ORDERED: INSULIN HUMAN REGULAR 1,000 UNITS/10 ML VIAL SQ PRN (00:15)
[2017-09-23] MEDS ORDERED: CHLORHEXIDINE GLUCONATE 2 % 1 PACK (2 CLOTHS) TOPICAL PRN (00:15)
[2017-09-23] MEDS ORDERED: METOPROLOL TARTRATE 25 MG TAB PO PRN (00:15)
[2017-09-23] MEDS ORDERED: LACTATED RINGER'S 1000 ML IV PRN (00:15)
[2017-09-23] MEDS: PIPERACIL-TAZO 2.25 GM PREMIX 50 ML IV SCH ×3 (02:58→20:24)
[2017-09-23 04:07] LABS: AUTOMATED NEUTROPHIL # 7.3 TH/MM3 (1.8-7.7); BASOPHIL # 0.1 TH/MM3 (0-0.2); BASOPHIL % 0.7 % (0.0-2.0); EOSINOPHIL # 0.1 TH/MM3 (0-0.4); EOSINOPHIL % 1.3 % (0.0-4.0); HEMATOCRIT 24.4 % (35.0-46.0); HEMO FLAGS DIFF FINAL; LYMPH % 8.3 % (9.0-44.0); LYMPHOCYTE # 0.7 TH/MM3 (1.0-4.8); MEAN CELL VOLUME 86.9 FL (80.0-100.0); MEAN CORPUSCULAR HEMOGLOBIN 29.9 PG (27.0-34.0); MEAN CORPUSCULAR HGB CONC 34.4 % (32.0-36.0); MONO % 8.7 % (0.0-8.0); PLATELET COUNT 219 TH/MM3 (150-450); RED BLOOD COUNT 2.81 MIL/MM3 (4.00-5.30); RED CELL DISTRIBUTION WIDTH 16.3 % (11.6-17.2)
[2017-09-23] MEDS: LEVOTHYROXINE SODIUM 100 MCG VIAL IV PUSH SCH (04:10)
[2017-09-23 04:37] LABS: BLOOD GAS BASE EXCESS 0.6 mmol/L (-2-2); BLOOD GAS CARBOXYHEMOGLOBIN 1.5 % (0-4); BLOOD GAS HCO3 25 mmol/L (22-26); BLOOD GAS METHEMOGLOBIN 1.4 % (0-2); BLOOD GAS O2 HGB SATURATION 96 % (90-100); BLOOD GAS OXYGEN CONTENT 12.7 Vol % (12.0-20.0); BLOOD GAS PCO2 43 mmHg (38-42); BLOOD GAS PO2 124 mmHg (61-120); BLOOD GAS TOTAL HGB 9.3 G/DL (12.0-16.0); CRITICAL VALUE NO; DRAW SITE ART LINE; FIO2 30 %; OXYGEN DEVICE VENTILATOR; STAT NO; TEMP CORR TO 98.6; VENT SETTINGS PRVC/AC
[2017-09-23 04:42] LABS: ALKALINE PHOSPHATASE 114 U/L (45-117); ALT (GPT) 14 U/L (10-53); ANION GAP 11 MEQ/L (5-15); AST (GOT) 21 U/L (15-37); BLOOD UREA NITROGEN 129 MG/DL (7-18); CHLORIDE 107 MEQ/L (98-107); GLOMERULAR FILTRATION RATE 23 ML/MIN (>89); MAGNESIUM 2.4 MG/DL (1.5-2.5); POTASSIUM 3.3 MEQ/L (3.5-5.1); SODIUM (NA) 144 MEQ/L (136-145); TOTAL BILIRUBIN ADULT 1.7 MG/DL (0.2-1.0)
--- NOTE | 2017-09-23 05:58 | RADRPT ---
EXAM DATE/TIME: 09/23/2017 04:54 [facility] COMPARISON: CHEST SINGLE AP, September 20, 2017, 17:46. INDICATIONS : Respiratory failure. MEDICAL HISTORY : Rheumatoid arthritis SURGICAL HISTORY : Gastric sleeve ENCOUNTER: Subsequent ACUITY: 1 month PAIN SCORE: Non-responsive. LOCATION: Bilateral chest FINDINGS: Endotracheal tube, enteric tube, left subclavian central venous catheter are noted. There is cardiome jarrett and hazy bilateral infiltrates, not significant changed. The osseous structures are intact. CONCLUSION: No significant change has occurred. Shailesh Bernal MD on September 23, 2017 at 5:56 Board Certified Radiologist. This report was verified electronically.
[2017-09-23] MEDS: INSULIN ASPART SUPPLEMENTAL SCALE SQ SCH ×4 (06:00→22:50)
--- NOTE | 2017-09-23 06:22 | HHI.PR ---
Immediate Post Op Note Procedure Date: Sep 23, 2017 Pre Op Diagnosis: acute respiratory failure Post Op Diagnosis: same Surgeon: Julian Preciado MD Funeral Director/Embalmer/Owner(s): Dr. Timothy Hill Procedure: perc trach with bronchoscopy Findings: good etCo2 Complications: none Estimated blood loss: 10cc Anesthesia: General Drains: None Patient to: ISC Patient Condition: Fair Julian Preciado MD Sep 23, 2017 06:22
[2017-09-23] MEDS: levETIRAcetam INJ 500 MG in SODIUM CHLORIDE 0.9% INJ 100 ML IV SCH ×2 (09:30→20:24)
[2017-09-23] MEDS: PANTOPRAZOLE SODIUM 40 MG VIAL IV PUSH SCH (09:30)
[2017-09-23] MEDS: ARTIFICIAL TEARS OPTH SOLN 15 ML BTL EACH EYE SCH ×3 (09:31→18:34)
[2017-09-23] MEDS: CHLORHEXIDINE 0.12% (ORAL KIT) 15 ML CUP MT SCH ×2 (09:31→20:24)
[2017-09-23] MEDS: SODIUM CHLORIDE 0.9% FLUSH 10 ML FLUSH IV FLUSH SCH ×2 (09:31→20:25)
[2017-09-23] MEDS: INSULIN DETEMIR 100 UNITS/ML VIAL SQ SCH ×2 (09:31→20:25)
[2017-09-23] MEDS: ALBUMIN 25% INJ 100 ML IV SCH ×3 (09:32→22:50)
[2017-09-23] MEDS ORDERED: MIDAZOLAM HCL 2 MG/2 ML VIAL IV ONE (12:00)
[2017-09-23] MEDS ORDERED: PHENYLEPH/NS 1000 MCG/10 ML SYR IV ONE (12:00)
[2017-09-23] MEDS ORDERED: ROCURONIUM INJ 50 MG/5 ML SYRINGE IV PUSH ONE (12:00)
--- NOTE | 2017-09-23 12:58 | HHI.NPPN ---
Subjective History of Present Illness Patient is a 61-year-old morbidly obese female who underwent gastric sleeve operation earlier this month on 08/23/17, patient has obstructive symptoms she was admitted and then has been doing well until [place] when she developed the abdominal pain nausea vomiting and patient has been brought her back to the emergency. She had diagnoses of peritonitis, bowel obstruction, septic shock. Underwent surgical bowel resection due to perforation currently intubated Additional Remarks Patient remain on vent s/p Trach Objective Data Data 09/23/17 09/24/17 19:00 07:00 Intake Total 500 ml Output Total 155 ml Balance 345 ml Other 500 ml Estimated Blood Loss 5 ml Other 150 ml Vital Signs Date Time Temp Pulse Resp B/P (MAP) Pulse Ox O2 Delivery O2 Flow Rate FiO2 09/23/17 11:30 94 30 09/23/17 07:55 95 30 09/23/17 06:15 100 100 09/23/17 04:59 96 30 09/23/17 04:00 30 09/23/17 04:00 99.6 94 23 157/70 (99) 96 09/23/17 04:00 94 09/23/17 02:00 93 09/23/17 00:44 96 30 09/23/17 00:00 93 09/23/17 00:00 30 09/23/17 00:00 99.7 93 24 155/71 (99) 96 09/22/17 22:00 89 09/22/17 20:37 96 30 09/22/17 20:30 30 09/22/17 20:00 78 09/22/17 20:00 99.2 78 25 146/60 (88) 96 09/22/17 20:00 30 09/22/17 19:00 30 09/22/17 16:00 99.0 85 23 156/63 (94) 96 09/22/17 16:00 85 09/22/17 15:31 96 30 -: 09/23/17 0355 09/23/17 0355 Physical Exam Neck Neck Exam: Neck Supple Pulmonary Resp Exam: Crackles, Rhonchi, Decreased Bases, Diminished Breath Sounds, Poor Inspiratory Effort Cardiology CV Exam: Regular Gastrointestinal/Abdomen GI Exam: Soft, Non-Tender, Distended, Bowel Sounds Absent Extremeties Extremities Exam: Pitting Edema, Dependent Edema Neurologic Neuro Exam: Sedated Assessment/Plan Problem List: (1) Acute renal failure ICD Codes: N17.9 - Acute kidney failure, unspecified Plan: Patient was in septic shock she was again hypotensive discussed with family Nonoliguric urine output good Cr declined 2.1 K 3.3 on TPN with 30 meq KCL Avoid nephrotoxic medications Creatinine about the same Potassium has been replaced She is doing well and can be observed for further recovery (2) Small bowel obstruction ICD Codes: K56.609 - Unspecified intestinal obstruction, unspecified as to partial versus complete obstruction Status: Acute Plan: Status post surgical intervention (3) Ileus following gastrointestinal surgery ICD Codes: K91.30 - Postprocedural intestinal obstruction, unspecified as to partial versus complete Plan: Continue to monitor Annita Bond MD Sep 23, 2017 12:58
[2017-09-23] MEDS: MODAFINIL 200 MG TAB PO SCH (13:29)
--- NOTE | 2017-09-23 15:39 | HHI.CCPN ---
Subjective Remarks/Hospital Course 61-year-old morbidly obese female presents, patient of Dr. Epstein, status post gastric sleeve 08-22-17 now presents with nonbloody emesis and unable to have a bowel movement for a couple days. She states to get that bowel movement she had a use a glycerin suppository and it was just loose. He was taken emergently to operating room and was found to have a small bowel ischemia. She underwent laparoscopic small bowel resection by Dr. Epstein and is postoperatively admitted to critical care unit SUBJ 09/09/17: Remains very critically ill. Profound septic shock requiring Levophed at 40 mcg/m, Des-Synephrine at 500 mcg/m, vasopressin at 0.04 international units, and to be demand 5 g per KG per minute. Urine output 150 mL overnight. Maintaining oxygen saturation. A.m. labs are pending at this time. Surprisingly patient is still mentating able to communicate. Remains on IV fentanyl infusion for pain control. Operative report is pending at this time. Received total of 9 L of crystalloid postoperatively. Receiving 2 units of PRBC. I will replace calcium. Lactic acid 3.5 at 4 AM 09/10: Critically ill but stable. Levophed down to 12 mcg/min, vasopressin at 0.04 IU. Uo 650 ml in 24 hours, bilateral abdominal drains with 1 L output. Right drain had greenish output overnight and now serosanguineous. D/ W Dr Epstein- he confirms perforation and gross contamination 09/11: Remains critically. FiO2 requirement up to 60%, I have increased PEEP to 10. CXR consistent with ARDS versus fluid overload. Creatinine increased to 1.24. Urine output 600 ml in 24 hours. CVP 18-20. Start IV Bumex 1 mg every 12 hours with additional 1 mg dose now. Levophed at 1 mcg/min, vasopressin at 0.04 IU 09/12: remains critically ill but stable to improving. SBP 130-140 on vasopressin will DC vasopressin. Chest x-ray shows bilateral pulmonary edema, but oxygenation has improved. Stable on 50% and PEEP of 10. Creatinine has worsened to 1.67 but urine output 1.5 L in 24 hours with Bumex. CVP remains about 20. Will increase Bumex to 1 mg every 8 hours and give additional 1 mg now. Closely monitor creatinine. 09/13: Weaning off vasopressors. SHEA persists. CXR with diffuse infiltrates , will switch modes for better recruitment hopefully. 09/14: Gas exchange improved on APRV. Renal function deteriorating. Remains fluid overloaded. 09/15: Gas exchange improved but renal function continues to deteriorate. Continue APRV - bases struggle for domain. 09/16: remains fairly encephalopathic, likely hypoactive delirium. renal function still worse today, although ? peaked?. continue APRV: body habitus would make de-recruitment almost certain if we switch to conventional mode of ventilation. still diuresing well. 09/17: creatinine continues to worsen despite adequate diuresis. BP lower today. will hold lasix drip. off all sedation x 12h and still remains encephalopathic, not following commands. may need renal replacement therapy at some point. severe electrolyte derrangements due to diuresis, and free water deficit. 09/18: Cr slightly downtrended. mental status still poor. long discussion with family and multiple members updated. remains off sedation. continuing to hold diuresis. 09/19: Cr still slightly downtrended. surgery concerned possible tube feeds in ROSSI drain after starting trickle TF yesterday. also, patient had more labored breathing on vent. etco2 70s, worsening hypercarbia and peak pressures. changed vent modes temporarily, increased minute ventilation, improved pco2, but then patient became acutely hypotensive. stat CXR ordered. clinically worse today. in addition, still no improvements in mental status. CT abd/pelvis with PO contrast ordered as well as CT brain. 09/20: CXR clear, will convert back to spontaneous ventilation to avoid CO2 retention. Marked azotemia, likely contributing to obtundation. BUN > 130. 09/21: Oxygenation remains improved. Peripheral edema resolving. Azotemia persists. BUN > 140 today. 09/22: Slightly improving enough renal functions. H&H critical, no signs of active bleeding, more likely iatrogenic due to frequent blood draws and dilutional. 09/23: s/p trach in OR today. hgb improved. renal function improving. organs are stable enough for transfer to LTAC. needs slow wean with lots of pulmonary rehab. Objective Vital Signs Date Time Temp Pulse Resp B/P (MAP) Pulse Ox O2 Delivery O2 Flow Rate FiO2 09/23/17 11:30 94 30 09/23/17 04:00 99.6 94 23 157/70 (99) 09/19/17 09:20 Ventilator Intake and Output 09/23/17 09/23/17 09/24/17 08:00 16:00 00:00 Intake Total 800 ml Output Total 1810 ml Balance -1010 ml Result Diagram: 09/23/17 0355 09/23/17 0355 Other Results Laboratory Tests Test 09/23/17 04:20 Blood Gas Puncture Site ART LINE Blood Gas Patient Temperature 98.6 Blood Gas HCO3 25 mmol/L (22-26) Blood Gas Base Excess 0.6 mmol/L (-2-2) Blood Gas Oxygen Saturation 96 % (90-100) Arterial Blood pH 7.39 (7.380-7.420) Arterial Blood Partial Pressure CO2 43 mmHg (38-42) Arterial Blood Partial Pressure O2 124 mmHg (61-120) Arterial Blood Oxygen Content 12.7 Vol % (12.0-20.0) Arterial Blood Carboxyhemoglobin 1.5 % (0-4) Arterial Blood Methemoglobin 1.4 % (0-2) Blood Gas Hemoglobin 9.3 G/DL (12.0-16.0) Oxygen Delivery Device VENTILATOR Blood Gas Ventilator Setting PRVC/AC Blood Gas Inspired Oxygen 30 % Objective Remarks GENERAL: morbidly obese, edematous female; encephalopathic and now s/p trach today. SKIN: Warm and dry. HEAD: Normocephalic. EYES: No scleral icterus. No injection or drainage. NECK: Trachea midline. trached. no bleeding at trach site. CARDIOVASCULAR: normal rate, regular rhythm. Heart sounds distant. JVD difficult to assess due to body habitus. RESPIRATORY:equal chest rise. PRVC PEEP 12 GASTROINTESTINAL: Abdomen soft, tender, distended. Morbidly obese. MUSCULOSKELETAL: No cyanosis, or edema. Well perfused. 2+ edema, diffuse. NEURO EXAM: slightly more responsive, not following commands but withdraws all extremities. Pupils are round, reactive to light. Opens eyes spontaneously some. A/P Assessment and Plan Assessment: 61yF s/p gastric bypass complicated by small bowel obstruction, intra-abdominal sepsis, persistent respiratory failure, volume overload. remains off pathway. s/p trach. improving organ systems. needs long-term rehab, likely LTAC. A/P: NEURO: Seizure disorder Metabolic encephalopathy Hypoactive Delirium - Currently off all sedation - Keppra IV. - hold sedating meds - fentanyl prn for positioning. - haldol for agitation - provigil for wakefulness. RESP: Acute hypoxemic respiratory failure - persistent, stable. ARDS HCAP with E Coli - Continue mechanical ventilation - Vent bundle - DuoNeb every 6 hours scheduled and when necessary - Bilateral pulmonary opacities, fluid overload and acute lung injury/ARDS - Tracheostomy by Dr. Preciado 09/23 - will need slow wean, LTAC appropriate. CVS: Septic shock-resolved. Lactic acidosis - resolved. - s/p Aggressive IV fluid resuscitation, postop received 9 L of normal saline, 2 units of PRBC - s/p hydrocortisone taper. give 1 dose hydrocortisone in case this is rebound adrenal insufficiency GI: Small bowel ischemia/Perforation Peritonitis - S/P Laparoscopic SBR for gangrenous small bowel - Post op surgical management per Dr. Epstein general surgery - PO feeding per surgery. - IV Protonix. Started TPN 09/10/17 - ct abd/pelvis with PO contrast showing no abscess FEN: Hypernatremia Free water deficit Hypokalemia Hypomagnesemia - aggressive electrolyte replacement - continue d5w @ 75cc/hr for free water replacement - recheck electrolytes. : Acute kidney failure - improving. Contraction alkalosis - improving. - ATN most likely from severe septic shock - Maintain [place] for accurate intake output HEME: Anemia secondary to acute blood loss - s/p 2 units of PRBC, transfuse to keep Hb >7.5 - Monitor H&H - Drop in platelet most likely sepsis, now improving. ID: Septic shock - resolved. Peritonitis HCAP with E Coli - Sputum culture E Coli - Blood cultures, urine culture follow up - ID following - continue zosyn. ENDO: Diabetes mellitus Hypocalcemia - Insulin sliding scale, and IV insulin with TPN - Electrolyte replacement per protocol - Continue levemir bid - d/c iv synthroid. start po synthroid now that gut function improving. DVT GI prophylaxis - Teds SCDs - Pharmacological DVT prophylaxis Lovenox 40 mg subcutaneous every 12- reduced to 40 qd due to worsening creatinine - Protonix Lines: Right IJ line d/c'd 09/20, New left SCV CVL placed 09/20. D/W Dr. Ozzy Hill,Saroj Cifuentes MD Sep 23, 2017 15:39
[2017-09-23] MEDS: DEXTROSE 5% IN WATE 1000ML INJ 1,000 ML IV SCH (16:03)
--- NOTE | 2017-09-23 19:25 | PD.PROCEDR ---
Procedure Note Procedure Procedure: Diagnostic Fiberoptic Bronchoscopy Diagnosis: Chronic respiratory failure Indications: Patient requires percutaneous dilation tracheostomy. Bronchoscopy used for perioperative planning and monitoring of trach Consent: Obtained Anesthesia: General endotracheal anesthesia Description of the Procedure: The patient was sedated and mechanically ventilated. The patient was placed on 100% FIO2 and a volume control mode of ventilation. The fiberoptic bronchoscopy was inserted via 7.0 oral endotracheal tube. The trachea, right and left mainstem bronchi, and sub- segmental bronchi were evaluated. The endobronchial anatomy was normal. Findings: Minimal thin secretions. Direct proctoscopic guidance of percutaneous dilation tracheostomy was performed. Please see separate procedure note for tracheostomy details. Needle, guidewire, dilators, and trach were visualized in the lumen of the trachea. Bronchoscope was then inserted into the lumen of the 8.0 proximal XLT trach and this was confirmed in the lumen of the trachea prior to positive pressure ventilation. BAL samples: No samples were sent The patient tolerated the procedure well with no hemodynamic instability or hypoxia. There were no immediate complications noted. There was minimal EBL. A chest x-ray has been ordered. I personally performed the procedure. Saroj Hill MD Sep 23, 2017 19:25
[2017-09-23] MEDS: LABETALOL HCL 100 MG/20 ML VIAL IV PUSH PRN (19:45)
[2017-09-23] MEDS: MULTIVITAMIN INJ 10 ML, FOLIC ACID INJ 1 MG, INSULIN HUMAN REGULAR INJ 40 UNITS in AMIN... IV-CENTRAL SCH (20:24)
--- NOTE | 2017-09-23 21:52 | MP ---
cc: HUSSEIN PRECIADO MD DATE OF SURGERY 09/23/17 PREOPERATIVE DIAGNOSIS Acute respiratory failure, history sleeve gastrectomy with diagnostic laparoscopy, laparoscopic removal of necrotic small bowel. POSTOPERATIVE DIAGNOSIS Acute respiratory failure, history sleeve gastrectomy with diagnostic laparoscopy, laparoscopic removal of necrotic small bowel. PROCEDURE PERFORMED Percutaneous tracheostomy with bronchoscopy. SURGEON Dr. Josy Preciado SITE SAFETY MANAGER Dr. Patience Hill ANESTHESIA GETA. IV FLUIDS See anesthesia sheet. ESTIMATED BLOOD LOSS 5 mL. DRAINS None COMPLICATIONS None. WOUND CLASSIFICATION Clean FINDINGS Good end-tidal CO2 return, bilateral breath sounds. INDICATION The patient is a 61-year-old female who presented with morbid obesity, multiple comorbidities. The patient had sleeve gastrectomy with multiple adhesions and evidence of bowel necrosis undergoing small bowel resection. Therefore, the patient remained in ICU with critical condition and is in need of tracheostomy given her prolonged intubation and failure to wean from the ventilator. PROCEDURE IN DETAIL The patient was taken to the operating suite, placed in supine position. She was prepped and draped in usual sterile fashion. The patient already had ET tube in place. She was placed under light sedation given her sensitivity to medications. Her neck was again prepped adequately. Brief time-out stating correct patient, procedure, surgical site and we were all in agreement with this. Attention was directed to the midline neck after patient was placed on 100% FIO2, saturations of 100%. Local anesthetic injected, small midline incision made between cricoid cartilage and sternal notch. This was done with a 15 blade. Further dissection with electro Bovie cautery and a hemostat to dissect through the subcutaneous tissue down to the trachea. Trachea was palpated and directed to rings distal to the cricoid cartilage. Then cricord was dilated membranes. Bronchoscopy was introduced through the ET tube. The ET tube was unfastened and retracted back in order to feel by palpation the end of the ET tube at the second, third endotracheal rings. The long access needle with angiocath was advanced. Saline aspiration noted. Confirmation of the intraluminal placement, also bronchoscopy identified that the needle was in the intraluminal space. The angiocatheter was directed over the needle and directed caudad. The wire introducer was then advanced to the angiocath angiocath was removed. A punch was obtained to dilate the tract x3 and this was removed and then the blue rhino percutaneous trache dilator was used to dilate the tract. The patient had a very small neck. It was very wide and deep. Therefore, a proximal XLT cuff tracheostomy was obtained and cannulated after adequate dilation and advanced to the airway to obtain a definitive surgical airway. Again done under direct visualization. The cannula was then hooked up to the ventilator and confirmation of end-tidal CO2 and the patient noted to have bilateral breath sounds as well. The trache noted sutured in place to four points on the neck. The incision was also reapproximated with a 3-0 Prolene suture. The trache ties were then placed.. The patient was then taken back to ICU. All lap and instrument counts were correct at the end of the procedure. The patient did tolerate procedure. No complication. MD MUSA Wisdom/ /8:58 PM /9:39 PM
[2017-09-24] VITALS (19 sets, daily range): BP systolic 138–158; BP diastolic 62–72; PULSE 74–92; RESP 18–28; TEMP 98.7–99.9; O2SAT 94–97
[2017-09-24] MEDS: LABETALOL HCL 100 MG/20 ML VIAL IV PUSH PRN (01:15)
[2017-09-24] MEDS: PIPERACIL-TAZO 2.25 GM PREMIX 50 ML IV SCH ×3 (02:43→18:55)
[2017-09-24] MEDS: DEXTROSE 5% IN WATE 1000ML INJ 1,000 ML IV SCH ×2 (02:43→17:18)
[2017-09-24] MEDS: LEVOTHYROXINE SODIUM 50 MCG TAB PO SCH (04:09)
[2017-09-24 04:20] LABS: HEMATOCRIT 23.5 % (35.0-46.0); MEAN CELL VOLUME 87.6 FL (80.0-100.0); MEAN CORPUSCULAR HEMOGLOBIN 29.3 PG (27.0-34.0); MEAN CORPUSCULAR HGB CONC 33.4 % (32.0-36.0); PLATELET COUNT 235 TH/MM3 (150-450); RED BLOOD COUNT 2.69 MIL/MM3 (4.00-5.30); RED CELL DISTRIBUTION WIDTH 16.1 % (11.6-17.2); REVIEW FLAG FINAL; WHITE BLOOD COUNT 7.3 TH/MM3 (4.0-11.0)
[2017-09-24 04:52] LABS: BICARBONATE 25.5 MEQ/L (21.0-32.0); POTASSIUM 3.3 MEQ/L (3.5-5.1)
[2017-09-24] MEDS: INSULIN ASPART SUPPLEMENTAL SCALE SQ SCH ×4 (05:49→23:04)
--- NOTE | 2017-09-24 08:28 | HHI.CCPN ---
Subjective Remarks/Hospital Course 61-year-old morbidly obese female presents, patient of Dr. Epstein, status post gastric sleeve 08-22-17 now presents with nonbloody emesis and unable to have a bowel movement for a couple days. She states to get that bowel movement she had a use a glycerin suppository and it was just loose. He was taken emergently to operating room and was found to have a small bowel ischemia. She underwent laparoscopic small bowel resection by Dr. Epstein and is postoperatively admitted to critical care unit SUBJ 09/09/17: Remains very critically ill. Profound septic shock requiring Levophed at 40 mcg/m, Des-Synephrine at 500 mcg/m, vasopressin at 0.04 international units, and to be demand 5 g per KG per minute. Urine output 150 mL overnight. Maintaining oxygen saturation. A.m. labs are pending at this time. Surprisingly patient is still mentating able to communicate. Remains on IV fentanyl infusion for pain control. Operative report is pending at this time. Received total of 9 L of crystalloid postoperatively. Receiving 2 units of PRBC. I will replace calcium. Lactic acid 3.5 at 4 AM 09/10: Critically ill but stable. Levophed down to 12 mcg/min, vasopressin at 0.04 IU. Uo 650 ml in 24 hours, bilateral abdominal drains with 1 L output. Right drain had greenish output overnight and now serosanguineous. D/ W Dr Epstein- he confirms perforation and gross contamination 09/11: Remains critically. FiO2 requirement up to 60%, I have increased PEEP to 10. CXR consistent with ARDS versus fluid overload. Creatinine increased to 1.24. Urine output 600 ml in 24 hours. CVP 18-20. Start IV Bumex 1 mg every 12 hours with additional 1 mg dose now. Levophed at 1 mcg/min, vasopressin at 0.04 IU 09/12: remains critically ill but stable to improving. SBP 130-140 on vasopressin will DC vasopressin. Chest x-ray shows bilateral pulmonary edema, but oxygenation has improved. Stable on 50% and PEEP of 10. Creatinine has worsened to 1.67 but urine output 1.5 L in 24 hours with Bumex. CVP remains about 20. Will increase Bumex to 1 mg every 8 hours and give additional 1 mg now. Closely monitor creatinine. 09/13: Weaning off vasopressors. SHEA persists. CXR with diffuse infiltrates , will switch modes for better recruitment hopefully. 09/14: Gas exchange improved on APRV. Renal function deteriorating. Remains fluid overloaded. 09/15: Gas exchange improved but renal function continues to deteriorate. Continue APRV - bases struggle for domain. 09/16: remains fairly encephalopathic, likely hypoactive delirium. renal function still worse today, although ? peaked?. continue APRV: body habitus would make de-recruitment almost certain if we switch to conventional mode of ventilation. still diuresing well. 09/17: creatinine continues to worsen despite adequate diuresis. BP lower today. will hold lasix drip. off all sedation x 12h and still remains encephalopathic, not following commands. may need renal replacement therapy at some point. severe electrolyte derrangements due to diuresis, and free water deficit. 09/18: Cr slightly downtrended. mental status still poor. long discussion with family and multiple members updated. remains off sedation. continuing to hold diuresis. 09/19: Cr still slightly downtrended. surgery concerned possible tube feeds in ROSSI drain after starting trickle TF yesterday. also, patient had more labored breathing on vent. etco2 70s, worsening hypercarbia and peak pressures. changed vent modes temporarily, increased minute ventilation, improved pco2, but then patient became acutely hypotensive. stat CXR ordered. clinically worse today. in addition, still no improvements in mental status. CT abd/pelvis with PO contrast ordered as well as CT brain. 09/20: CXR clear, will convert back to spontaneous ventilation to avoid CO2 retention. Marked azotemia, likely contributing to obtundation. BUN > 130. 09/21: Oxygenation remains improved. Peripheral edema resolving. Azotemia persists. BUN > 140 today. 09/22: Slightly improving enough renal functions. H&H critical, no signs of active bleeding, more likely iatrogenic due to frequent blood draws and dilutional. 09/23: s/p trach in OR today. hgb improved. renal function improving. organs are stable enough for transfer to LTAC. needs slow wean with lots of pulmonary rehab. 09/24: still putting out 300cc/24h out of right ROSSI, with bile. mental status improving, slowly. Objective Vital Signs Date Time Temp Pulse Resp B/P (MAP) Pulse Ox O2 Delivery O2 Flow Rate FiO2 09/24/17 06:00 89 09/24/17 04:17 95 30 09/24/17 04:00 99.4 18 148/68 (94) Intake and Output 09/24/17 09/24/17 09/25/17 08:00 16:00 00:00 Intake Total 1060 ml Output Total 1780 ml Balance -720 ml Result Diagram: 09/24/1740409/24/17404 Objective Remarks GENERAL: morbidly obese, edematous female; encephalopathic SKIN: Warm and dry. HEAD: Normocephalic. EYES: No scleral icterus. No injection or drainage. NECK: Trachea midline. trached. no bleeding at trach site. CARDIOVASCULAR: normal rate, regular rhythm. Heart sounds distant. JVD difficult to assess due to body habitus. RESPIRATORY:equal chest rise. PRVC PEEP 12 GASTROINTESTINAL: Abdomen soft, tender, distended. Morbidly obese. MUSCULOSKELETAL: No cyanosis, or edema. Well perfused. 2+ edema, diffuse. NEURO EXAM: slightly more responsive, not following commands but withdraws all extremities. Pupils are round, reactive to light. Opens eyes spontaneously some. A/P Assessment and Plan Assessment: 61yF s/p gastric bypass complicated by small bowel obstruction, intra-abdominal sepsis, persistent respiratory failure, volume overload. remains off pathway. s/p trach. improving organ systems. needs long-term rehab, likely LTAC. will allow surgery to guide plan for bile leak. A/P: NEURO: Seizure disorder Metabolic encephalopathy Hypoactive Delirium - Currently off all sedation - Keppra IV. - hold sedating meds - fentanyl prn for positioning. - haldol for agitation - provigil for wakefulness. RESP: Acute hypoxemic respiratory failure - persistent, stable. ARDS HCAP with E Coli - Continue mechanical ventilation - Vent bundle - DuoNeb every 6 hours scheduled and when necessary - Bilateral pulmonary opacities, fluid overload and acute lung injury/ARDS - Tracheostomy by Dr. Preciado 09/23 - will need slow wean, LTAC appropriate. CVS: Septic shock-resolved. Lactic acidosis - resolved. - s/p Aggressive IV fluid resuscitation, postop received 9 L of normal saline, 2 units of PRBC - s/p hydrocortisone taper. give 1 dose hydrocortisone in case this is rebound adrenal insufficiency GI: Small bowel ischemia/Perforation Peritonitis Bile leak - S/P Laparoscopic SBR for gangrenous small bowel - Post op surgical management per Dr. Epstein general surgery - PO feeding per surgery. - IV Protonix. Started TPN 09/10/17 - ct abd/pelvis with PO contrast showing no abscess 09/19 - ROSSI management per gen surgery. FEN: Hypernatremia Free water deficit Hypokalemia Hypomagnesemia - aggressive electrolyte replacement - continue d5w @ 75cc/hr for free water replacement - recheck electrolytes on daily bmp : Acute kidney failure - improving. Contraction alkalosis - improving. - ATN most likely from severe septic shock - Maintain Bedolla for accurate intake output HEME: Anemia secondary to acute blood loss - s/p 2 units of PRBC, transfuse to keep Hb >7.5 - Monitor H&H - Drop in platelet most likely sepsis, now improving. ID: Septic shock - resolved. Peritonitis HCAP with E Coli - Sputum culture E Coli - Blood cultures, urine culture follow up - ID following - continue zosyn. ENDO: Diabetes mellitus Hypocalcemia - Insulin sliding scale, and IV insulin with TPN - Electrolyte replacement per protocol - Continue levemir bid - po synthroid now that gut function improving. DVT GI prophylaxis - Teds SCDs - Pharmacological DVT prophylaxis Lovenox 40 mg subcutaneous every 12- reduced to 40 qd due to worsening creatinine - Protonix Lines: Right IJ line d/c'd 09/20, New left SCV CVL placed 09/20. Saroj Hill MD Sep 24, 2017 08:28
[2017-09-24] MEDS ORDERED: POTASSIUM CHLOR 40 MEQ PREMIX 100 ML IV ONE (08:30)
[2017-09-24] MEDS: SODIUM CHLORIDE 0.9% FLUSH 10 ML FLUSH IV FLUSH SCH ×2 (09:00→19:38)
[2017-09-24] MEDS: ALBUMIN 25% INJ 100 ML IV SCH ×3 (09:03→22:36)
[2017-09-24] MEDS: levETIRAcetam INJ 500 MG in SODIUM CHLORIDE 0.9% INJ 100 ML IV SCH ×2 (09:04→19:38)
[2017-09-24] MEDS: PANTOPRAZOLE SODIUM 40 MG VIAL IV PUSH SCH (09:05)
[2017-09-24] MEDS: MODAFINIL 200 MG TAB PO SCH (09:05)
[2017-09-24] MEDS: INSULIN DETEMIR 100 UNITS/ML VIAL SQ SCH ×2 (09:06→19:39)
[2017-09-24] MEDS: ARTIFICIAL TEARS OPTH SOLN 15 ML BTL EACH EYE SCH ×3 (09:07→17:18)
[2017-09-24] MEDS: CHLORHEXIDINE 0.12% (ORAL KIT) 15 ML CUP MT SCH ×2 (09:07→19:39)
--- NOTE | 2017-09-24 13:31 | HHI.NPPN ---
Subjective History of Present Illness Patient is a 61-year-old morbidly obese female who underwent gastric sleeve operation earlier this month on 08/23/17, patient has obstructive symptoms she was admitted and then has been doing well until [place] when she developed the abdominal pain nausea vomiting and patient has been brought her back to the emergency. She had diagnoses of peritonitis, bowel obstruction, septic shock. Underwent surgical bowel resection due to perforation currently intubated Additional Remarks Patient remain on vent s/p Trach Objective Data Data Vital Signs Date Time Temp Pulse Resp B/P (MAP) Pulse Ox O2 Delivery O2 Flow Rate FiO2 09/24/17 12:03 94 30 09/24/17 08:53 30 09/24/17 08:53 95 30 09/24/17 06:00 89 09/24/17 04:17 95 30 09/24/17 04:00 74 09/24/17 04:00 30 09/24/17 04:00 99.4 74 18 148/68 (94) 95 09/24/17 02:00 85 09/24/17 00:29 95 30 09/24/17 00:00 85 09/24/17 00:00 30 09/24/17 00:00 99.9 85 21 158/68 (98) 95 09/23/17 22:00 88 09/23/17 20:05 95 30 09/23/17 20:00 99.6 88 22 152/66 (94) 93 09/23/17 20:00 88 09/23/17 20:00 30 09/23/17 18:00 92 09/23/17 16:00 30 09/23/17 16:00 97 30 09/23/17 16:00 99.9 76 26 142/65 (90) 99 09/23/17 16:00 76 09/23/17 16:00 30 09/23/17 15:24 96 30 09/23/17 14:00 82 -: 09/24/17 0405 09/24/17 0405 Physical Exam Neck Neck Exam: Neck Supple Pulmonary Resp Exam: Crackles, Rhonchi, Decreased Bases, Diminished Breath Sounds, Poor Inspiratory Effort Cardiology CV Exam: Regular Gastrointestinal/Abdomen GI Exam: Soft, Non-Tender, Distended, Bowel Sounds Absent Extremeties Extremities Exam: Pitting Edema, Dependent Edema Neurologic Neuro Exam: Sedated Assessment/Plan Problem List: (1) Acute renal failure ICD Codes: N17.9 - Acute kidney failure, unspecified Plan: Patient was in septic shock she was again hypotensive discussed with family Nonoliguric urine output good Cr declined 1.9 K 3.3 on TPN with 30 meq KCL extra KCL given Avoid nephrotoxic medications She is doing well and can be observed for further recovery Nephrology to follow PRN bases (2) Small bowel obstruction ICD Codes: K56.609 - Unspecified intestinal obstruction, unspecified as to partial versus complete obstruction Status: Acute Plan: Status post surgical intervention (3) Ileus following gastrointestinal surgery ICD Codes: K91.30 - Postprocedural intestinal obstruction, unspecified as to partial versus complete Plan: Continue to monitor Annita Bond MD Sep 24, 2017 13:31
--- NOTE | 2017-09-24 19:13 | HHI.PR ---
Subjective Subjective Notes no acute issues, wbc normal tm 99.9, s/p trach on cpap, still with bile in drain , moving extremities more awake Objective Vitals/I&O Vital Signs Date Time Temp Pulse Resp B/P (MAP) Pulse Ox O2 Delivery O2 Flow Rate FiO2 09/24/17 18:00 88 09/24/17 16:22 95 30 09/24/17 16:00 98.7 26 148/62 (90) Labs Laboratory Tests Test 09/24/17 04:05 White Blood Count 7.3 Red Blood Count 2.69 Hemoglobin 7.9 Hematocrit 23.5 Mean Corpuscular Volume 87.6 Mean Corpuscular Hemoglobin 29.3 Mean Corpuscular Hemoglobin Concent 33.4 Red Cell Distribution Width 16.1 Platelet Count 235 Mean Platelet Volume 8.8 Blood Urea Nitrogen 116 Creatinine 1.97 Random Glucose 160 Calcium Level 8.6 Sodium Level 145 Potassium Level 3.3 Chloride Level 108 Carbon Dioxide Level 25.5 Anion Gap 12 Estimat Glomerular Filtration Rate 26 Date/Time Source Procedure Growth Status 09/10/17 08:30 Blood Peripheral Aerobic Blood Culture - Final NO GROWTH IN 5 DAYS Complete 09/10/17 08:30 Blood Peripheral Anaerobic Blood Culture - Final NO GROWTH IN 5 DAYS Complete 09/08/17 21:10 Sputum Oral Tracheal Aspirate Gram Stain - Final Complete 09/08/17 21:10 Sputum Culture - Final Escherichia Coli Complete 09/09/17 09:45 Urine Clean Catch Urine Culture - Final NO GROWTH IN 48 HOURS. Complete 09/15/17 08:31 Wound Abdomen Gram Stain - Final Complete 09/15/17 08:31 Wound Abdomen Wound Culture - Final NO GROWTH IN 72 HRS.--AEROBICALLY OR ... Complete Radiology Last Impressions Chest X-Ray 09/20/17 0000 Signed Impressions: Service Date/Time: Wednesday, September 20, 2017 17:46 - CONCLUSION: 1. No pneumothorax status post placement of left subclavian central line which has its tip in the superior vena cava. 2. Stable bibasilar patchiness. 3. Stable cardiomegaly. Darion Oates MD Head CT 09/19/17 0000 Signed Impressions: Service Date/Time: Tuesday, September 19, 2017 15:54 - CONCLUSION: 1. No evidence of acute intracranial pathology. No masses are identified. 2. Bilateral mastoiditis Jens John MD Chest CT 09/19/17 0000 Signed Impressions: Service Date/Time: Tuesday, September 19, 2017 15:59 - CONCLUSION: 1. Multifocal areas of consolidation greatest in right lower lobe most characteristic of pneumonia. 2. Abnormal soft tissue density in the right axilla contiguous with abnormal soft tissue density and inflammatory change extending along the right lateral chest wall. This could represent hemorrhage and/or inflammatory change. There are no gas bubbles are infection cannot be excluded. 3. There is fluid again noted in the upper abdomen. 4. Moderate elevation of the right hemidiaphragm. Yuri Holt MD Abdomen/Pelvis CT 09/19/17 0000 Signed Impressions: Service Date/Time: Tuesday, September 19, 2017 15:59 - CONCLUSION: 1. There is no evidence of abscess. 2. Mild ascites Jens John MD Abdomen Fluoroscopy 09/08/17 0000 Signed Impressions: Service Date/Time: Friday, September 08, 2017 12:04 - CONCLUSION: Uncomplicated nasogastric tube placement as above. Tae Archuleta Jr., MD Abdomen: Other (incision well approximate david serous on left, bilious on right) A/P Assessment and Plan 61yo F with small bowel perforation and peritonitis s/p lap washout bowel resection, s/p trach, more awake -Cr Improving, still with edema- consider lasix- defer to nephro -ISC wean vent support, s/p trach -Will continue with TPN - continue close monitoring, ISC following dvt ppx - sepulveda for Is and Os - david to low wall sxn Julian Preciado MD Sep 24, 2017 19:13
[2017-09-24] MEDS: hydrALAZINE HCL 20 MG/ML VIAL IV PUSH PRN (19:38)
[2017-09-24] MEDS: MULTIVITAMIN INJ 10 ML, FOLIC ACID INJ 1 MG, INSULIN HUMAN REGULAR INJ 40 UNITS in AMIN... IV-CENTRAL SCH (19:39)
[2017-09-25] VITALS (18 sets, daily range): BP systolic 123–152; BP diastolic 57–74; PULSE 73–94; RESP 20–26; TEMP 98.9–99.6; O2SAT 96–97
[2017-09-25] MEDS: PIPERACIL-TAZO 2.25 GM PREMIX 50 ML IV SCH ×3 (02:20→18:58)
[2017-09-25 04:28] LABS: HEMATOCRIT 23.9 % (35.0-46.0); MEAN CELL VOLUME 88.4 FL (80.0-100.0); MEAN CORPUSCULAR HEMOGLOBIN 29.3 PG (27.0-34.0); MEAN CORPUSCULAR HGB CONC 33.2 % (32.0-36.0); PLATELET COUNT 245 TH/MM3 (150-450); RED BLOOD COUNT 2.71 MIL/MM3 (4.00-5.30); RED CELL DISTRIBUTION WIDTH 15.9 % (11.6-17.2); REVIEW FLAG FINAL; WHITE BLOOD COUNT 6.3 TH/MM3 (4.0-11.0)
[2017-09-25] MEDS: LEVOTHYROXINE SODIUM 50 MCG TAB PO SCH (04:42)
[2017-09-25] MEDS: DEXTROSE 5% IN WATE 1000ML INJ 1,000 ML IV SCH ×2 (04:43→18:58)
[2017-09-25] MEDS: LABETALOL HCL 100 MG/20 ML VIAL IV PUSH PRN (04:44)
[2017-09-25 04:49] LABS: POTASSIUM 3.1 MEQ/L (3.5-5.1)
[2017-09-25] MEDS: INSULIN ASPART SUPPLEMENTAL SCALE SQ SCH ×4 (06:00→23:42)
[2017-09-25] MEDS: ALBUMIN 25% INJ 100 ML IV SCH ×3 (09:42→23:42)
[2017-09-25] MEDS: levETIRAcetam INJ 500 MG in SODIUM CHLORIDE 0.9% INJ 100 ML IV SCH ×2 (09:42→21:04)
[2017-09-25] MEDS: CHLORHEXIDINE 0.12% (ORAL KIT) 15 ML CUP MT SCH ×2 (09:43→21:04)
[2017-09-25] MEDS: SODIUM CHLORIDE 0.9% FLUSH 10 ML FLUSH IV FLUSH SCH ×2 (09:43→21:05)
[2017-09-25] MEDS: PANTOPRAZOLE SODIUM 40 MG VIAL IV PUSH SCH (09:43)
[2017-09-25] MEDS: ARTIFICIAL TEARS OPTH SOLN 15 ML BTL EACH EYE SCH ×3 (09:43→18:57)
[2017-09-25] MEDS: MODAFINIL 200 MG TAB PO SCH (09:43)
[2017-09-25] MEDS: INSULIN DETEMIR 100 UNITS/ML VIAL SQ SCH ×2 (09:44→21:00)
--- NOTE | 2017-09-25 11:35 | HHI.CCPN ---
Subjective Remarks/Hospital Course 61-year-old morbidly obese female presents, patient of Dr. Epstein, status post gastric sleeve 08-22-17 now presents with nonbloody emesis and unable to have a bowel movement for a couple days. She states to get that bowel movement she had a use a glycerin suppository and it was just loose. He was taken emergently to operating room and was found to have a small bowel ischemia. She underwent laparoscopic small bowel resection by Dr. Epstein and is postoperatively admitted to critical care unit SUBJ 09/09/17: Remains very critically ill. Profound septic shock requiring Levophed at 40 mcg/m, Des-Synephrine at 500 mcg/m, vasopressin at 0.04 international units, and to be demand 5 g per KG per minute. Urine output 150 mL overnight. Maintaining oxygen saturation. A.m. labs are pending at this time. Surprisingly patient is still mentating able to communicate. Remains on IV fentanyl infusion for pain control. Operative report is pending at this time. Received total of 9 L of crystalloid postoperatively. Receiving 2 units of PRBC. I will replace calcium. Lactic acid 3.5 at 4 AM 09/10: Critically ill but stable. Levophed down to 12 mcg/min, vasopressin at 0.04 IU. Uo 650 ml in 24 hours, bilateral abdominal drains with 1 L output. Right drain had greenish output overnight and now serosanguineous. D/ W Dr Epstein- he confirms perforation and gross contamination 09/11: Remains critically. FiO2 requirement up to 60%, I have increased PEEP to 10. CXR consistent with ARDS versus fluid overload. Creatinine increased to 1.24. Urine output 600 ml in 24 hours. CVP 18-20. Start IV Bumex 1 mg every 12 hours with additional 1 mg dose now. Levophed at 1 mcg/min, vasopressin at 0.04 IU 09/12: remains critically ill but stable to improving. SBP 130-140 on vasopressin will DC vasopressin. Chest x-ray shows bilateral pulmonary edema, but oxygenation has improved. Stable on 50% and PEEP of 10. Creatinine has worsened to 1.67 but urine output 1.5 L in 24 hours with Bumex. CVP remains about 20. Will increase Bumex to 1 mg every 8 hours and give additional 1 mg now. Closely monitor creatinine. 09/13: Weaning off vasopressors. SHEA persists. CXR with diffuse infiltrates , will switch modes for better recruitment hopefully. 09/14: Gas exchange improved on APRV. Renal function deteriorating. Remains fluid overloaded. 09/15: Gas exchange improved but renal function continues to deteriorate. Continue APRV - bases struggle for domain. 09/16: remains fairly encephalopathic, likely hypoactive delirium. renal function still worse today, although ? peaked?. continue APRV: body habitus would make de-recruitment almost certain if we switch to conventional mode of ventilation. still diuresing well. 09/17: creatinine continues to worsen despite adequate diuresis. BP lower today. will hold lasix drip. off all sedation x 12h and still remains encephalopathic, not following commands. may need renal replacement therapy at some point. severe electrolyte derrangements due to diuresis, and free water deficit. 09/18: Cr slightly downtrended. mental status still poor. long discussion with family and multiple members updated. remains off sedation. continuing to hold diuresis. 09/19: Cr still slightly downtrended. surgery concerned possible tube feeds in ROSSI drain after starting trickle TF yesterday. also, patient had more labored breathing on vent. etco2 70s, worsening hypercarbia and peak pressures. changed vent modes temporarily, increased minute ventilation, improved pco2, but then patient became acutely hypotensive. stat CXR ordered. clinically worse today. in addition, still no improvements in mental status. CT abd/pelvis with PO contrast ordered as well as CT brain. 09/20: CXR clear, will convert back to spontaneous ventilation to avoid CO2 retention. Marked azotemia, likely contributing to obtundation. BUN > 130. 09/21: Oxygenation remains improved. Peripheral edema resolving. Azotemia persists. BUN > 140 today. 09/22: Slightly improving enough renal functions. H&H critical, no signs of active bleeding, more likely iatrogenic due to frequent blood draws and dilutional. 09/23: s/p trach in OR today. hgb improved. renal function improving. organs are stable enough for transfer to LTAC. needs slow wean with lots of pulmonary rehab. 09/24: still putting out 300cc/24h out of right ROSSI, with bile. mental status improving, slowly. 09/25: Improved neurological function. Controlled fistula. Objective Vital Signs Date Time Temp Pulse Resp B/P (MAP) Pulse Ox O2 Delivery O2 Flow Rate FiO2 09/25/17 10:00 83 09/25/17 09:40 30 09/25/17 09:31 96 09/25/17 08:00 98.9 20 147/71 (96) Intake and Output 09/25/17 09/25/17 09/26/17 08:00 16:00 00:00 Intake Total 120 ml Output Total 1950 ml Balance -1830 ml Result Diagram: 09/25/1741909/25/17419 Objective Remarks GENERAL: morbidly obese, edematous female; encephalopathic SKIN: Warm and dry. HEAD: Normocephalic. EYES: No scleral icterus. No injection or drainage. NECK: Trachea midline. trached. no bleeding at trach site. CARDIOVASCULAR: normal rate, regular rhythm. Heart sounds distant. JVD difficult to assess due to body habitus. RESPIRATORY:equal chest rise. PRVC PEEP 12 GASTROINTESTINAL: Abdomen soft, tender, distended. Morbidly obese. MUSCULOSKELETAL: No cyanosis, or edema. Well perfused. 2+ edema, diffuse. NEURO EXAM: slightly more responsive, not following commands but withdraws all extremities. Pupils are round, reactive to light. Opens eyes spontaneously some. A/P Assessment and Plan Assessment: 61yF s/p gastric bypass complicated by small bowel obstruction, intra-abdominal sepsis, persistent respiratory failure, volume overload. remains off pathway. s/p trach. improving organ systems. needs long-term rehab, likely LTAC. will allow surgery to guide plan for bile leak. A/P: NEURO: Seizure disorder Metabolic encephalopathy Hypoactive Delirium - Currently off all sedation - Keppra IV. - hold sedating meds - fentanyl prn for positioning. - haldol for agitation - provigil for wakefulness. RESP: Acute hypoxemic respiratory failure - persistent, stable. ARDS HCAP with E Coli - Continue mechanical ventilation - Vent bundle - DuoNeb every 6 hours scheduled and when necessary - Bilateral pulmonary opacities, fluid overload and acute lung injury/ARDS - Tracheostomy by Dr. Preciado 09/23 - will need slow wean, LTAC appropriate. CVS: Septic shock-resolved. Lactic acidosis - resolved. - s/p Aggressive IV fluid resuscitation, postop received 9 L of normal saline, 2 units of PRBC - s/p hydrocortisone taper. give 1 dose hydrocortisone in case this is rebound adrenal insufficiency GI: Small bowel ischemia/Perforation Peritonitis Bile leak - S/P Laparoscopic SBR for gangrenous small bowel - Post op surgical management per Dr. Epstein general surgery - PO feeding per surgery. - IV Protonix. Started TPN 09/10/17 - ct abd/pelvis with PO contrast showing no abscess 09/19 - ROSSI management per gen surgery. FEN: Hypernatremia Free water deficit Hypokalemia Hypomagnesemia - aggressive electrolyte replacement - continue d5w @ 75cc/hr for free water replacement - recheck electrolytes on daily bmp : Acute kidney failure - improving. Contraction alkalosis - improving. - ATN most likely from severe septic shock - Maintain Bedolla for accurate intake output HEME: Anemia secondary to acute blood loss - s/p 2 units of PRBC, transfuse to keep Hb >7.5 - Monitor H&H - Drop in platelet most likely sepsis, now improving. ID: Septic shock - resolved. Peritonitis HCAP with E Coli - Sputum culture E Coli - Blood cultures, urine culture follow up - ID following - continue zosyn. ENDO: Diabetes mellitus Hypocalcemia - Insulin sliding scale, and IV insulin with TPN - Electrolyte replacement per protocol - Continue levemir bid - po synthroid now that gut function improving. DVT GI prophylaxis - Teds SCDs - Pharmacological DVT prophylaxis Lovenox 40 mg subcutaneous every 12- reduced to 40 qd due to worsening creatinine - Protonix Lines: Right IJ line d/c'd 09/20, New left SCV CVL placed 09/20. Overall impression: Continue TPN, control fistula. Improving. Jose Landin MD Sep 25, 2017 11:35
--- NOTE | 2017-09-25 12:19 | HHI.PR ---
Subjective Subjective Notes Much more awake Tolerating CPAP Objective Vitals/I&O Vital Signs Date Time Temp Pulse Resp B/P (MAP) Pulse Ox O2 Delivery O2 Flow Rate FiO2 09/25/17 10:00 83 09/25/17 09:40 30 09/25/17 09:31 96 09/25/17 08:00 98.9 20 147/71 (96) Labs Laboratory Tests Test 09/25/17 04:20 White Blood Count 6.3 Red Blood Count 2.71 Hemoglobin 7.9 Hematocrit 23.9 Mean Corpuscular Volume 88.4 Mean Corpuscular Hemoglobin 29.3 Mean Corpuscular Hemoglobin Concent 33.2 Red Cell Distribution Width 15.9 Platelet Count 245 Mean Platelet Volume 8.1 Blood Urea Nitrogen 109 Creatinine 1.71 Random Glucose 147 Calcium Level 8.4 Sodium Level 136 Potassium Level 3.1 Chloride Level 101 Carbon Dioxide Level 26.0 Anion Gap 9 Estimat Glomerular Filtration Rate 30 Date/Time Source Procedure Growth Status 09/10/17 08:30 Blood Peripheral Aerobic Blood Culture - Final NO GROWTH IN 5 DAYS Complete 09/10/17 08:30 Blood Peripheral Anaerobic Blood Culture - Final NO GROWTH IN 5 DAYS Complete 09/08/17 21:10 Sputum Oral Tracheal Aspirate Gram Stain - Final Complete 09/08/17 21:10 Sputum Culture - Final Escherichia Coli Complete 09/09/17 09:45 Urine Clean Catch Urine Culture - Final NO GROWTH IN 48 HOURS. Complete 09/15/17 08:31 Wound Abdomen Gram Stain - Final Complete 09/15/17 08:31 Wound Abdomen Wound Culture - Final NO GROWTH IN 72 HRS.--AEROBICALLY OR ... Complete Radiology Last Impressions Chest X-Ray 09/20/17 0000 Signed Impressions: Service Date/Time: Wednesday, September 20, 2017 17:46 - CONCLUSION: 1. No pneumothorax status post placement of left subclavian central line which has its tip in the superior vena cava. 2. Stable bibasilar patchiness. 3. Stable cardiomegaly. Darion Oates MD Head CT 09/19/17 0000 Signed Impressions: Service Date/Time: Tuesday, September 19, 2017 15:54 - CONCLUSION: 1. No evidence of acute intracranial pathology. No masses are identified. 2. Bilateral mastoiditis Jens John MD Chest CT 09/19/17 0000 Signed Impressions: Service Date/Time: Tuesday, September 19, 2017 15:59 - CONCLUSION: 1. Multifocal areas of consolidation greatest in right lower lobe most characteristic of pneumonia. 2. Abnormal soft tissue density in the right axilla contiguous with abnormal soft tissue density and inflammatory change extending along the right lateral chest wall. This could represent hemorrhage and/or inflammatory change. There are no gas bubbles are infection cannot be excluded. 3. There is fluid again noted in the upper abdomen. 4. Moderate elevation of the right hemidiaphragm. Yuri Holt MD Abdomen/Pelvis CT 09/19/17 0000 Signed Impressions: Service Date/Time: Tuesday, September 19, 2017 15:59 - CONCLUSION: 1. There is no evidence of abscess. 2. Mild ascites Jens John MD Abdomen Fluoroscopy 09/08/17 0000 Signed Impressions: Service Date/Time: Friday, September 08, 2017 12:04 - CONCLUSION: Uncomplicated nasogastric tube placement as above. Tae Archuleta Jr., MD Cardiovascular: Regular Lungs: Rhonchi Abdomen: Other (intermittent bowel sounds) Extremities: Perfused Wound Wound : Wound Location: Abdomen (Right ROSSI continues with bilious drainage) A/P Assessment and Plan 61yo F with small bowel perforation and peritonitis -Renal function continues to improve, continues to make urine -Ok to remove left ROSSI, continue to monitor drainage to right ROSSI. 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 Will manage conservatively Flower Gomez [facility] Sep 25, 2017 12:19
[2017-09-25] MEDS ORDERED: POTASSIUM CHLOR 40 MEQ PREMIX 100 ML IV ONE (13:00)
[2017-09-25] MEDS: ENOXAPARIN SODIUM 30 MG/0.3 ML SYRINGE SQ SCH (13:30)
[2017-09-25] MEDS: hydrALAZINE HCL 20 MG/ML VIAL IV PUSH PRN (15:11)
--- NOTE | 2017-09-25 15:42 | HHI.IDPN ---
Note Infectious Disease Note Patient is on CPAP. Has eyes open. Reported to be following commands. Afebrile. Had low grade temp of 100.6 yesterday. Has tracheostomy. Presented to the emergency department on September 07 and was diagnosed with small bowel obstruction. She was taken to surgery and was found to have necrosed, perforated small bowel and she underwent small bowel resection. The patient previously had elective gastric sleeve on 08/22/2017. After that she was having nausea and vomiting and then difficulty passing stools. During the surgical procedure the patient had some purulent material within the abdomen. PAST MEDICAL HISTORY 1. Rheumatoid arthritis 2. Hypothyroidism 3. Gout 4. Depression 5. Seizure disorder 6. Attention deficit disorder 7. Cholecystectomy 8. Tonsillectomy 9. Ankle arthroplasty 10. Gastric sleeve. 08/22/17. ALLERGIES PROPOXYPHENE DARVOCET ADHESIVE TAPES ANTIBIOTICS Pip/Tazobactam. OBJECTIVE: Vital Signs Date Time Temp Pulse Resp B/P (MAP) Pulse Ox O2 Delivery O2 Flow Rate FiO2 09/25/17 15:20 96 30 09/25/17 14:00 78 09/25/17 12:35 96 30 09/25/17 12:00 30 09/25/17 12:00 83 09/25/17 12:00 99.6 83 22 123/58 (79) 96 09/25/17 10:00 83 09/25/17 09:40 30 09/25/17 09:31 96 30 09/25/17 08:00 30 09/25/17 08:00 98.9 83 20 147/71 (96) 97 09/25/17 08:00 83 09/25/17 06:00 73 09/25/17 04:32 96 30 09/25/17 04:00 30 09/25/17 04:00 99.6 94 22 152/74 (100) 96 09/25/17 04:00 94 09/25/17 02:00 81 09/25/17 01:40 96 30 09/25/17 00:00 89 09/25/17 00:00 30 09/25/17 00:00 99.2 89 22 140/66 (90) 96 09/24/17 22:40 96 30 09/24/17 22:00 87 09/24/17 20:00 88 09/24/17 20:00 30 09/24/17 20:00 99.0 88 28 138/62 (87) 97 09/24/17 19:55 96 30 09/24/17 18:00 88 09/24/17 16:22 95 30 09/24/17 16:00 98.7 90 26 148/62 (90) 96 09/24/17 16:00 30 09/24/17 16:00 90 Laboratory Tests Test 09/24/17 04:05 09/25/17 04:20 White Blood Count 7.3 TH/MM3 6.3 TH/MM3 Red Blood Count 2.69 MIL/MM3 2.71 MIL/MM3 Hemoglobin 7.9 GM/DL 7.9 GM/DL Hematocrit 23.5 % 23.9 % Mean Corpuscular Volume 87.6 FL 88.4 FL Mean Corpuscular Hemoglobin 29.3 PG 29.3 PG Mean Corpuscular Hemoglobin Concent 33.4 % 33.2 % Red Cell Distribution Width 16.1 % 15.9 % Platelet Count 235 TH/MM3 245 TH/MM3 Mean Platelet Volume 8.8 FL 8.1 FL Laboratory Tests Test 09/24/17 04:05 09/25/17 04:20 Blood Urea Nitrogen 116 MG/DL 109 MG/DL Creatinine 1.97 MG/DL 1.71 MG/DL Random Glucose 160 MG/DL 147 MG/DL Calcium Level 8.6 MG/DL 8.4 MG/DL Sodium Level 145 MEQ/L 136 MEQ/L Potassium Level 3.3 MEQ/L 3.1 MEQ/L Chloride Level 108 MEQ/L 101 MEQ/L Carbon Dioxide Level 25.5 MEQ/L 26.0 MEQ/L Anion Gap 12 MEQ/L 9 MEQ/L Estimat Glomerular Filtration Rate 26 ML/MIN 30 ML/MIN IMAGING: Chest X-Ray 09/23/17 0600 Signed Impressions: Service Date/Time: Saturday, September 23, 2017 04:54 - CONCLUSION: No significant change has occurred. Shailesh Bernal MD Chest X-Ray 09/20/17 0000 Signed Impressions: Service Date/Time: Wednesday, September 20, 2017 17:46 - CONCLUSION: 1. No pneumothorax status post placement of left subclavian central line which has its tip in the superior vena cava. 2. Stable bibasilar patchiness. 3. Stable cardiomegaly. Darion Oates MD Chest X-Ray 09/19/17 0400 Signed Impressions: Service Date/Time: Tuesday, September 19, 2017 04:10 - CONCLUSION: 1. Interval improvement in bilateral pulmonary infiltrates. 2. The patient remains intubated. Yuri Holt MD Head CT 09/19/17 0000 Signed Impressions: Service Date/Time: Tuesday, September 19, 2017 15:54 - CONCLUSION: 1. No evidence of acute intracranial pathology. No masses are identified. 2. Bilateral mastoiditis Jens John MD Chest X-Ray 09/19/17 0000 Signed Impressions: Service Date/Time: Tuesday, September 19, 2017 09:44 - CONCLUSION: Increasing bibasilar parenchymal changes worse on the right. Raghu Mcfarland MD FACR Chest CT 09/19/17 0000 Signed Impressions: Service Date/Time: Tuesday, September 19, 2017 15:59 - CONCLUSION: 1. Multifocal areas of consolidation greatest in right lower lobe most characteristic of pneumonia. 2. Abnormal soft tissue density in the right axilla contiguous with abnormal soft tissue density and inflammatory change extending along the right lateral chest wall. This could represent hemorrhage and/or inflammatory change. There are no gas bubbles are infection cannot be excluded. 3. There is fluid again noted in the upper abdomen. 4. Moderate elevation of the right hemidiaphragm. Yuri Holt MD Abdomen/Pelvis CT 09/19/17 0000 Signed Impressions: Service Date/Time: Tuesday, September 19, 2017 15:59 - CONCLUSION: 1. There is no evidence of abscess. 2. Mild ascites Jens John MD PHYSICAL EXAM: GENERAL: No acute distress. HEENT: Head atraumatic, No icterus. Oropharynx intubated. NECK: Supple. No adenopathy. LUNGS: Clear BS. CARDIAC: Regular rate and rhythm. no murmurs, rubs or gallops. ABDOMEN: Obese. Soft. No tenderness appreciated. R. Arnie drain has dark drainage. EXTREMITIES: No clubbing, cyanosis. Tr. edema. NEURO: Unable to assess. IMPRESSION 1. Septic shock. 2. Post exploratory laparotomy and small bowel resection along with lysis of adhesions for small bowel perforation. 3. Peritonitis due to due to small bowel perforation. 4. Acute respiratory failure. 5. VAP gram negative. E. coli. 6. Acute kidney disease. ? sepsis related. ? medication. 7. Leukocytosis. WBC now normal. 8. Mastoiditis on CT scan. RECOMMENDATIONS 1. Continue Zosyn. 2. Avoid nephrotoxic meds. 3. Continue to monitor clinical status. 4. Monitor temp. Jus Enriquez MD Sep 25, 2017 15:42
[2017-09-25] MEDS: MULTIVITAMIN INJ 10 ML, FOLIC ACID INJ 1 MG, INSULIN HUMAN REGULAR INJ 40 UNITS in AMIN... IV-CENTRAL SCH (21:04)
[2017-09-26] VITALS (19 sets, daily range): BP systolic 135–166; BP diastolic 55–77; PULSE 79–99; RESP 21–31; TEMP 97.9–99.1; O2SAT 94–99
[2017-09-26] MEDS: PIPERACIL-TAZO 2.25 GM PREMIX 50 ML IV SCH ×3 (02:09→19:22)
[2017-09-26] MEDS: LEVOTHYROXINE SODIUM 50 MCG TAB PO SCH (05:03)
[2017-09-26 05:29] LABS: HEMATOCRIT 22.6 % (35.0-46.0); MEAN CORPUSCULAR HEMOGLOBIN 29.9 PG (27.0-34.0); MEAN CORPUSCULAR HGB CONC 33.7 % (32.0-36.0); PLATELET COUNT 245 TH/MM3 (150-450); RED BLOOD COUNT 2.54 MIL/MM3 (4.00-5.30); RED CELL DISTRIBUTION WIDTH 15.6 % (11.6-17.2); REVIEW FLAG FINAL; WHITE BLOOD COUNT 5.1 TH/MM3 (4.0-11.0)
[2017-09-26 05:54] LABS: BICARBONATE 24.7 MEQ/L (21.0-32.0); POTASSIUM 3.5 MEQ/L (3.5-5.1)
[2017-09-26] MEDS: INSULIN ASPART SUPPLEMENTAL SCALE SQ SCH ×4 (06:00→23:49)
[2017-09-26] MEDS: DEXTROSE 5% IN WATE 1000ML INJ 1,000 ML IV SCH (08:30)
[2017-09-26] MEDS: CHLORHEXIDINE 0.12% (ORAL KIT) 15 ML CUP MT SCH ×2 (08:44→20:00)
[2017-09-26] MEDS: ALBUMIN 25% INJ 100 ML IV SCH ×3 (08:44→23:36)
[2017-09-26] MEDS: PANTOPRAZOLE SODIUM 40 MG VIAL IV PUSH SCH (08:44)
[2017-09-26] MEDS: INSULIN DETEMIR 100 UNITS/ML VIAL SQ SCH ×2 (08:45→20:06)
[2017-09-26] MEDS: levETIRAcetam INJ 500 MG in SODIUM CHLORIDE 0.9% INJ 100 ML IV SCH ×2 (08:45→20:04)
[2017-09-26] MEDS: MODAFINIL 200 MG TAB PO SCH (08:45)
[2017-09-26] MEDS: ARTIFICIAL TEARS OPTH SOLN 15 ML BTL EACH EYE SCH ×3 (08:46→19:21)
[2017-09-26] MEDS: SODIUM CHLORIDE 0.9% FLUSH 10 ML FLUSH IV FLUSH SCH ×2 (08:46→20:04)
[2017-09-26] MEDS: ENOXAPARIN SODIUM 30 MG/0.3 ML SYRINGE SQ SCH (12:27)
--- NOTE | 2017-09-26 15:31 | HHI.CCPN ---
Subjective Remarks/Hospital Course 61-year-old morbidly obese female presents, patient of Dr. Epstein, status post gastric sleeve 08-22-17 now presents with nonbloody emesis and unable to have a bowel movement for a couple days. She states to get that bowel movement she had a use a glycerin suppository and it was just loose. He was taken emergently to operating room and was found to have a small bowel ischemia. She underwent laparoscopic small bowel resection by Dr. Epstein and is postoperatively admitted to critical care unit SUBJ 09/09/17: Remains very critically ill. Profound septic shock requiring Levophed at 40 mcg/m, Des-Synephrine at 500 mcg/m, vasopressin at 0.04 international units, and to be demand 5 g per KG per minute. Urine output 150 mL overnight. Maintaining oxygen saturation. A.m. labs are pending at this time. Surprisingly patient is still mentating able to communicate. Remains on IV fentanyl infusion for pain control. Operative report is pending at this time. Received total of 9 L of crystalloid postoperatively. Receiving 2 units of PRBC. I will replace calcium. Lactic acid 3.5 at 4 AM 09/10: Critically ill but stable. Levophed down to 12 mcg/min, vasopressin at 0.04 IU. Uo 650 ml in 24 hours, bilateral abdominal drains with 1 L output. Right drain had greenish output overnight and now serosanguineous. D/ W Dr Epstein- he confirms perforation and gross contamination 09/11: Remains critically. FiO2 requirement up to 60%, I have increased PEEP to 10. CXR consistent with ARDS versus fluid overload. Creatinine increased to 1.24. Urine output 600 ml in 24 hours. CVP 18-20. Start IV Bumex 1 mg every 12 hours with additional 1 mg dose now. Levophed at 1 mcg/min, vasopressin at 0.04 IU 09/12: remains critically ill but stable to improving. SBP 130-140 on vasopressin will DC vasopressin. Chest x-ray shows bilateral pulmonary edema, but oxygenation has improved. Stable on 50% and PEEP of 10. Creatinine has worsened to 1.67 but urine output 1.5 L in 24 hours with Bumex. CVP remains about 20. Will increase Bumex to 1 mg every 8 hours and give additional 1 mg now. Closely monitor creatinine. 09/13: Weaning off vasopressors. SHEA persists. CXR with diffuse infiltrates , will switch modes for better recruitment hopefully. 09/14: Gas exchange improved on APRV. Renal function deteriorating. Remains fluid overloaded. 09/15: Gas exchange improved but renal function continues to deteriorate. Continue APRV - bases struggle for domain. 09/16: remains fairly encephalopathic, likely hypoactive delirium. renal function still worse today, although ? peaked?. continue APRV: body habitus would make de-recruitment almost certain if we switch to conventional mode of ventilation. still diuresing well. 09/17: creatinine continues to worsen despite adequate diuresis. BP lower today. will hold lasix drip. off all sedation x 12h and still remains encephalopathic, not following commands. may need renal replacement therapy at some point. severe electrolyte derrangements due to diuresis, and free water deficit. 09/18: Cr slightly downtrended. mental status still poor. long discussion with family and multiple members updated. remains off sedation. continuing to hold diuresis. 09/19: Cr still slightly downtrended. surgery concerned possible tube feeds in ROSSI drain after starting trickle TF yesterday. also, patient had more labored breathing on vent. etco2 70s, worsening hypercarbia and peak pressures. changed vent modes temporarily, increased minute ventilation, improved pco2, but then patient became acutely hypotensive. stat CXR ordered. clinically worse today. in addition, still no improvements in mental status. CT abd/pelvis with PO contrast ordered as well as CT brain. 09/20: CXR clear, will convert back to spontaneous ventilation to avoid CO2 retention. Marked azotemia, likely contributing to obtundation. BUN > 130. 09/21: Oxygenation remains improved. Peripheral edema resolving. Azotemia persists. BUN > 140 today. 09/22: Slightly improving enough renal functions. H&H critical, no signs of active bleeding, more likely iatrogenic due to frequent blood draws and dilutional. 09/23: s/p trach in OR today. hgb improved. renal function improving. organs are stable enough for transfer to LTAC. needs slow wean with lots of pulmonary rehab. 09/24: still putting out 300cc/24h out of right ROSSI, with bile. mental status improving, slowly. 09/25: Improved neurological function. Controlled fistula. 09/26: Remains on mechanical ventilation via tracheostomy. Daily C Pap trials ongoing. On TPN. Objective Vital Signs Date Time Temp Pulse Resp B/P (MAP) Pulse Ox O2 Delivery O2 Flow Rate FiO2 09/26/17 13:07 95 30 09/26/17 06:09 91 09/26/17 04:00 97.9 22 155/70 (98) Intake and Output 09/26/17 09/26/17 09/27/17 08:00 16:00 00:00 Intake Total 295 ml Output Total 2200 ml Balance -1905 ml Result Diagram: 09/26/17 0505 09/26/17 0505 Objective Remarks GENERAL: morbidly obese, edematous female; encephalopathic SKIN: Warm and dry. HEAD: Normocephalic. EYES: No scleral icterus. No injection or drainage. NECK: Trachea midline. trached. no bleeding at trach site. CARDIOVASCULAR: normal rate, regular rhythm. Heart sounds distant. JVD difficult to assess due to body habitus. RESPIRATORY:equal chest rise. PRVC PEEP 12 GASTROINTESTINAL: Abdomen soft, tender, distended. Morbidly obese. MUSCULOSKELETAL: No cyanosis, or edema. Well perfused. 2+ edema, diffuse. NEURO EXAM: slightly more responsive, not following commands but withdraws all extremities. Pupils are round, reactive to light. Opens eyes spontaneously some. A/P Assessment and Plan Assessment: 61yF s/p gastric bypass complicated by small bowel obstruction, intra-abdominal sepsis, persistent respiratory failure, volume overload. remains off pathway. s/p trach. improving organ systems. needs long-term rehab, likely LTAC. will allow surgery to guide plan for bile leak. A/P: NEURO: Seizure disorder Metabolic encephalopathy Hypoactive Delirium - Currently off all sedation - Keppra IV. - hold sedating meds - fentanyl prn for positioning. - haldol for agitation - provigil for wakefulness. RESP: Acute hypoxemic respiratory failure - persistent, stable. ARDS HCAP with E Coli - Continue mechanical ventilation - Vent bundle - DuoNeb every 6 hours scheduled and when necessary - Bilateral pulmonary opacities, fluid overload and acute lung injury/ARDS - Tracheostomy by Dr. Preciaod 09/23 - will need slow wean, LTAC appropriate. CVS: Septic shock-resolved. Lactic acidosis - resolved. - s/p Aggressive IV fluid resuscitation, postop received 9 L of normal saline, 2 units of PRBC - s/p hydrocortisone taper. give 1 dose hydrocortisone in case this is rebound adrenal insufficiency GI: Small bowel ischemia/Perforation Peritonitis Bile leak - S/P Laparoscopic SBR for gangrenous small bowel - Post op surgical management per Dr. Epstein general surgery - PO feeding per surgery. - IV Protonix. Started TPN 09/10/17 - ct abd/pelvis with PO contrast showing no abscess 09/19 - ROSSI management per gen surgery. FEN: Hypernatremia Free water deficit Hypokalemia Hypomagnesemia - aggressive electrolyte replacement - Decrease d5w to 40cc/hr for free water replacement - recheck electrolytes on daily bmp : Acute kidney failure - improving. Contraction alkalosis - improving. - ATN most likely from severe septic shock - Maintain [place] for accurate intake output HEME: Anemia secondary to acute blood loss - s/p 2 units of PRBC, transfuse to keep Hb >7.5 - Monitor H&H - Drop in platelet most likely sepsis, now improving. ID: Septic shock - resolved. Peritonitis HCAP with E Coli - Sputum culture E Coli - Blood cultures, urine culture follow up - ID following - continue zosyn. ENDO: Diabetes mellitus Hypocalcemia - Insulin sliding scale, and IV insulin with TPN - Electrolyte replacement per protocol - Continue levemir bid - po synthroid now that gut function improving. DVT GI prophylaxis - Teds SCDs - Pharmacological DVT prophylaxis Lovenox 40 mg subcutaneous every 12- reduced to 40 qd due to worsening creatinine - Protonix Lines: Right IJ line d/c'd 09/20, New left SCV CVL placed 09/20. Overall impression: Continue TPN, control fistula. Improving. Attila Fontaine MD Sep 26, 2017 15:31
--- NOTE | 2017-09-26 16:07 | HHI.PR ---
Subjective Subjective Notes Continues with slow improvements, follows some simple commands Harder time with vent weaning today Objective Vitals/I&O Vital Signs Date Time Temp Pulse Resp B/P (MAP) Pulse Ox O2 Delivery O2 Flow Rate FiO2 09/26/17 13:07 95 30 09/26/17 06:09 91 09/26/17 04:00 97.9 22 155/70 (98) Labs Laboratory Tests Test 09/26/17 05:05 White Blood Count 5.1 Red Blood Count 2.54 Hemoglobin 7.6 Hematocrit 22.6 Mean Corpuscular Volume 89.0 Mean Corpuscular Hemoglobin 29.9 Mean Corpuscular Hemoglobin Concent 33.7 Red Cell Distribution Width 15.6 Platelet Count 245 Mean Platelet Volume 8.6 Blood Urea Nitrogen 106 Creatinine 1.67 Random Glucose 151 Calcium Level 8.5 Sodium Level 146 Potassium Level 3.5 Chloride Level 111 Carbon Dioxide Level 24.7 Anion Gap 10 Estimat Glomerular Filtration Rate 31 Date/Time Source Procedure Growth Status 09/10/17 08:30 Blood Peripheral Aerobic Blood Culture - Final NO GROWTH IN 5 DAYS Complete 09/10/17 08:30 Blood Peripheral Anaerobic Blood Culture - Final NO GROWTH IN 5 DAYS Complete 09/08/17 21:10 Sputum Oral Tracheal Aspirate Gram Stain - Final Complete 09/08/17 21:10 Sputum Culture - Final Escherichia Coli Complete 09/09/17 09:45 Urine Clean Catch Urine Culture - Final NO GROWTH IN 48 HOURS. Complete 09/15/17 08:31 Wound Abdomen Gram Stain - Final Complete 09/15/17 08:31 Wound Abdomen Wound Culture - Final NO GROWTH IN 72 HRS.--AEROBICALLY OR ... Complete Radiology Last Impressions Chest X-Ray 09/20/17 0000 Signed Impressions: Service Date/Time: Wednesday, September 20, 2017 17:46 - CONCLUSION: 1. No pneumothorax status post placement of left subclavian central line which has its tip in the superior vena cava. 2. Stable bibasilar patchiness. 3. Stable cardiomegaly. Darion Oates MD Head CT 09/19/17 0000 Signed Impressions: Service Date/Time: Tuesday, September 19, 2017 15:54 - CONCLUSION: 1. No evidence of acute intracranial pathology. No masses are identified. 2. Bilateral mastoiditis Jens John MD Chest CT 09/19/17 0000 Signed Impressions: Service Date/Time: Tuesday, September 19, 2017 15:59 - CONCLUSION: 1. Multifocal areas of consolidation greatest in right lower lobe most characteristic of pneumonia. 2. Abnormal soft tissue density in the right axilla contiguous with abnormal soft tissue density and inflammatory change extending along the right lateral chest wall. This could represent hemorrhage and/or inflammatory change. There are no gas bubbles are infection cannot be excluded. 3. There is fluid again noted in the upper abdomen. 4. Moderate elevation of the right hemidiaphragm. Yuri Holt MD Abdomen/Pelvis CT 09/19/17 0000 Signed Impressions: Service Date/Time: Tuesday, September 19, 2017 15:59 - CONCLUSION: 1. There is no evidence of abscess. 2. Mild ascites Jens John MD Abdomen Fluoroscopy 09/08/17 0000 Signed Impressions: Service Date/Time: Friday, September 08, 2017 12:04 - CONCLUSION: Uncomplicated nasogastric tube placement as above. Tae Archuleta Jr., MD Cardiovascular: Regular Abdomen: Other (intermittent bowel sounds) Extremities: Perfused Wound Wound : Wound Location: Abdomen (right ROSSI continuous with bileous drainage) A/P Assessment and Plan 61yo F with small bowel perforation and peritonitis -Continue with vent weaning as appropriate -Continue to monitor drainage to right ROSSI. 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 Will manage conservatively Flower Gomez Sep 26, 2017 16:07
[2017-09-26] MEDS: LABETALOL HCL 100 MG/20 ML VIAL IV PUSH PRN (19:08)
[2017-09-26] MEDS: MULTIVITAMIN INJ 10 ML, FOLIC ACID INJ 1 MG, INSULIN HUMAN REGULAR INJ 40 UNITS in AMIN... IV-CENTRAL SCH (20:04)
[2017-09-26] MEDS: ENOXAPARIN SODIUM 60 MG/0.6 ML SYRINGE SQ SCH ×2 (20:05→20:17)
[2017-09-27] VITALS (19 sets, daily range): BP systolic 126–162; BP diastolic 61–68; PULSE 72–92; RESP 24–30; TEMP 98.2–100.6; O2SAT 97–100
[2017-09-27] MEDS: DEXTROSE 5% IN WATE 1000ML INJ 1,000 ML IV SCH (01:02)
[2017-09-27] MEDS: PIPERACIL-TAZO 2.25 GM PREMIX 50 ML IV SCH ×2 (02:17→11:20)
[2017-09-27 04:42] LABS: MEAN CELL VOLUME 88.3 FL (80.0-100.0); MEAN CORPUSCULAR HEMOGLOBIN 30.1 PG (27.0-34.0); MEAN CORPUSCULAR HGB CONC 34.1 % (32.0-36.0); PLATELET COUNT 281 TH/MM3 (150-450); RED BLOOD COUNT 2.95 MIL/MM3 (4.00-5.30); RED CELL DISTRIBUTION WIDTH 15.9 % (11.6-17.2); REVIEW FLAG FINAL; WHITE BLOOD COUNT 8.8 TH/MM3 (4.0-11.0)
[2017-09-27 05:11] LABS: BICARBONATE 24.3 MEQ/L (21.0-32.0); MAGNESIUM 2.1 MG/DL (1.5-2.5); POTASSIUM 3.2 MEQ/L (3.5-5.1)
[2017-09-27] MEDS: LEVOTHYROXINE SODIUM 50 MCG TAB PO SCH (05:30)
[2017-09-27] MEDS: INSULIN ASPART SUPPLEMENTAL SCALE SQ SCH ×3 (05:30→18:02)
[2017-09-27] MEDS: ALBUMIN 25% INJ 100 ML IV SCH ×2 (08:47→16:02)
[2017-09-27] MEDS: ARTIFICIAL TEARS OPTH SOLN 15 ML BTL EACH EYE SCH ×3 (08:49→17:42)
[2017-09-27] MEDS: CHLORHEXIDINE 0.12% (ORAL KIT) 15 ML CUP MT SCH ×2 (08:49→20:00)
[2017-09-27] MEDS: levETIRAcetam INJ 500 MG in SODIUM CHLORIDE 0.9% INJ 100 ML IV SCH ×2 (08:50→22:09)
[2017-09-27] MEDS: SODIUM CHLORIDE 0.9% FLUSH 10 ML FLUSH IV FLUSH SCH ×2 (08:50→21:00)
[2017-09-27] MEDS: PANTOPRAZOLE SODIUM 40 MG VIAL IV PUSH SCH (08:50)
[2017-09-27] MEDS: MODAFINIL 200 MG TAB PO SCH (08:51)
[2017-09-27] MEDS: ENOXAPARIN SODIUM 60 MG/0.6 ML SYRINGE SQ SCH ×2 (08:52→22:08)
[2017-09-27] MEDS: INSULIN DETEMIR 100 UNITS/ML VIAL SQ SCH ×2 (08:52→22:12)
[2017-09-27] MEDS ORDERED: POTASSIUM PHOSPHATE INJ 30 MMOL in SODIUM CHLOR 0.9% 250 ML INJ 250 ML IV PRN (11:00)
[2017-09-27] MEDS ORDERED: ACETAMINOPHEN 1000 MG/100 ML 65 ML IV ONE (11:00)
[2017-09-27] MEDS ORDERED: POTASSIUM CHLORIDE 25 MEQ EFFERVESCENT TAB PO PRN (11:00)
[2017-09-27] MEDS ORDERED: SODIUM PHOSPHATE INJ 30 MMOL in SODIUM CHLOR 0.9% 250 ML INJ 240 ML IV PRN (11:00)
[2017-09-27] MEDS ORDERED: MAGNESIUM SULFATE INJ 2 GM in SODIUM CHLORIDE 0.9% INJ 96 ML IV PRN (11:00)
[2017-09-27] MEDS ORDERED: POTASSIUM PHOSPHATE MONOBASIC 500 MG TAB PO PRN (11:00)
[2017-09-27] MEDS ORDERED: POTASSIUM CHLOR 20 MEQ PREMIX 100 ML IV PRN ×2 (11:00)
[2017-09-27] MEDS ORDERED: POTASSIUM PHOSPHATE MONOBASIC 500 MG TAB PO/TUBE PRN (11:00)
[2017-09-27] MEDS ORDERED: POTASSIUM CHLOR 40 MEQ PREMIX 100 ML IV PRN (11:00)
[2017-09-27] MEDS ORDERED: MAGNESIUM SULFATE INJ 4 GM in SODIUM CHLORIDE 0.9% INJ 92 ML IV PRN (11:00)
[2017-09-27] MEDS ORDERED: MAGNESIUM OXIDE 400 MG TAB PO PRN (11:00)
[2017-09-27] MEDS ORDERED: ACETAMINOPHEN 1000 MG/100 ML 100 ML IV ONE (11:43)
--- NOTE | 2017-09-27 12:18 | HHI.IDPN ---
Note Infectious Disease Note Patient awakens easily. RN reports she is following commands. Temp of 100.6. Left abdominal catheter removed. Presented to the emergency department on September 07 and was diagnosed with small bowel obstruction. She was taken to surgery and was found to have necrosed, perforated small bowel and she underwent small bowel resection. The patient previously had elective gastric sleeve on 08/22/2017. After that she was having nausea and vomiting and then difficulty passing stools. During the surgical procedure the patient had some purulent material within the abdomen. PAST MEDICAL HISTORY 1. Rheumatoid arthritis 2. Hypothyroidism 3. Gout 4. Depression 5. Seizure disorder 6. Attention deficit disorder 7. Cholecystectomy 8. Tonsillectomy 9. Ankle arthroplasty 10. Gastric sleeve. 08/22/17. ALLERGIES PROPOXYPHENE DARVOCET ADHESIVE TAPES ANTIBIOTICS Pip/Tazobactam. OBJECTIVE: Vital Signs Date Time Temp Pulse Resp B/P (MAP) Pulse Ox O2 Delivery O2 Flow Rate FiO2 09/27/17 09:23 99 30 09/27/17 09:15 98 30 09/27/17 08:00 30 09/27/17 08:00 100.6 76 25 138/65 (89) 98 09/27/17 06:58 80 09/27/17 04:16 98 30 09/27/17 04:07 30 09/27/17 04:07 98.8 72 27 147/65 (92) 98 09/27/17 04:06 73 09/27/17 02:18 83 09/27/17 00:18 92 09/27/17 00:00 30 09/27/17 00:00 98.4 92 28 158/61 (93) 97 09/26/17 23:46 98 30 09/26/17 22:00 87 09/26/17 20:47 97 30 09/26/17 20:00 30 09/26/17 20:00 98 09/26/17 20:00 99.0 99 26 135/55 (81) 97 09/26/17 18:00 92 09/26/17 16:14 99 30 09/26/17 16:00 98.7 90 31 166/77 (106) 99 09/26/17 16:00 30 09/26/17 16:00 90 09/26/17 14:00 92 09/26/17 13:07 95 30 Laboratory Tests Test 09/26/17 05:05 09/27/17 04:30 White Blood Count 5.1 TH/MM3 8.8 TH/MM3 Red Blood Count 2.54 MIL/MM3 2.95 MIL/MM3 Hemoglobin 7.6 GM/DL 8.9 GM/DL Hematocrit 22.6 % 26.0 % Mean Corpuscular Volume 89.0 FL 88.3 FL Mean Corpuscular Hemoglobin 29.9 PG 30.1 PG Mean Corpuscular Hemoglobin Concent 33.7 % 34.1 % Red Cell Distribution Width 15.6 % 15.9 % Platelet Count 245 TH/MM3 281 TH/MM3 Mean Platelet Volume 8.6 FL 8.5 FL Laboratory Tests Test 09/26/17 05:05 09/27/17 04:30 Blood Urea Nitrogen 106 MG/DL 93 MG/DL Creatinine 1.67 MG/DL 1.42 MG/DL Random Glucose 151 MG/DL 167 MG/DL Calcium Level 8.5 MG/DL 8.8 MG/DL Sodium Level 146 MEQ/L 145 MEQ/L Potassium Level 3.5 MEQ/L 3.2 MEQ/L Chloride Level 111 MEQ/L 112 MEQ/L Carbon Dioxide Level 24.7 MEQ/L 24.3 MEQ/L Anion Gap 10 MEQ/L 9 MEQ/L Estimat Glomerular Filtration Rate 31 ML/MIN 38 ML/MIN Phosphorus Level 3.6 MG/DL Magnesium Level 2.1 MG/DL IMAGING: Chest X-Ray 09/23/17 0600 Signed Impressions: Service Date/Time: Saturday, September 23, 2017 04:54 - CONCLUSION: No significant change has occurred. Shailesh Bernal MD Chest X-Ray 09/20/17 0000 Signed Impressions: Service Date/Time: Wednesday, September 20, 2017 17:46 - CONCLUSION: 1. No pneumothorax status post placement of left subclavian central line which has its tip in the superior vena cava. 2. Stable bibasilar patchiness. 3. Stable cardiomegaly. Darion Oates MD Chest X-Ray 09/19/17 0400 Signed Impressions: Service Date/Time: Tuesday, September 19, 2017 04:10 - CONCLUSION: 1. Interval improvement in bilateral pulmonary infiltrates. 2. The patient remains intubated. Yuri Holt MD Head CT 09/19/17 0000 Signed Impressions: Service Date/Time: Tuesday, September 19, 2017 15:54 - CONCLUSION: 1. No evidence of acute intracranial pathology. No masses are identified. 2. Bilateral mastoiditis Jens John MD Chest X-Ray 09/19/17 0000 Signed Impressions: Service Date/Time: Tuesday, September 19, 2017 09:44 - CONCLUSION: Increasing bibasilar parenchymal changes worse on the right. Raghu Mcfarland MD FACR Chest CT 09/19/17 0000 Signed Impressions: Service Date/Time: Tuesday, September 19, 2017 15:59 - CONCLUSION: 1. Multifocal areas of consolidation greatest in right lower lobe most characteristic of pneumonia. 2. Abnormal soft tissue density in the right axilla contiguous with abnormal soft tissue density and inflammatory change extending along the right lateral chest wall. This could represent hemorrhage and/or inflammatory change. There are no gas bubbles are infection cannot be excluded. 3. There is fluid again noted in the upper abdomen. 4. Moderate elevation of the right hemidiaphragm. Yuri Holt MD Abdomen/Pelvis CT 09/19/17 0000 Signed Impressions: Service Date/Time: Tuesday, September 19, 2017 15:59 - CONCLUSION: 1. There is no evidence of abscess. 2. Mild ascites Jens John MD PHYSICAL EXAM: GENERAL: No acute distress. HEENT: Head atraumatic, No icterus. NECK: Supple. No adenopathy. LUNGS: Clear BS. CARDIAC: Regular rate and rhythm. no murmurs, rubs or gallops. ABDOMEN: Obese. Soft. No tenderness appreciated. R. Arnie drain has dark drainage. EXTREMITIES: No clubbing, cyanosis. No edema. NEURO: Awake and alert. SKIN: No rash. IMPRESSION 1. Septic shock. 2. Post exploratory laparotomy and small bowel resection along with lysis of adhesions for small bowel perforation. 3. Peritonitis due to due to small bowel perforation. 4. Acute respiratory failure. 5. VAP gram negative. E. coli. 6. Acute kidney disease. ? sepsis related. ? medication. 7. Leukocytosis. WBC now normal. 8. Mastoiditis on CT scan. 9. New fever. ? urine source. RECOMMENDATIONS 1. Continue Zosyn. 2. Avoid nephrotoxic meds. 3. Monitor UA/ C&S. 4. Monitor temp. Jus Enriquez MD Sep 27, 2017 12:18
[2017-09-27 12:45] LABS: BACTERIA, URINE OCC /hpf; BLOOD, URINE SMALL (NEG); COMMENT (UR) CATH-CULTURE IND; CULTURE IF INDICATED CATH CULTURE IND; GLUCOSE,URINE NEG (NEG); KETONE, URINE NEG (NEG); MUCUS URINE FEW /lpf (OCC); NITRITE,URINE NEG (NEG); PH, URINE 5.5 (5.0-8.5); SQUAMOUS EPITHELIAL CELL URINE 1 /hpf (0-5); URINE COLOR YELLOW (YELLW/STRAW)
--- NOTE | 2017-09-27 13:24 | HHI.PR ---
Subjective Subjective Notes Running temps today Not tolerating CPAP Objective Vitals/I&O Vital Signs Date Time Temp Pulse Resp B/P (MAP) Pulse Ox O2 Delivery O2 Flow Rate FiO2 09/27/17 09:23 99 30 09/27/17 08:00 100.6 76 25 138/65 (89) Labs Laboratory Tests Test 09/27/17 04:30 09/27/17 12:25 White Blood Count 8.8 Red Blood Count 2.95 Hemoglobin 8.9 Hematocrit 26.0 Mean Corpuscular Volume 88.3 Mean Corpuscular Hemoglobin 30.1 Mean Corpuscular Hemoglobin Concent 34.1 Red Cell Distribution Width 15.9 Platelet Count 281 Mean Platelet Volume 8.5 Blood Urea Nitrogen 93 Creatinine 1.42 Random Glucose 167 Calcium Level 8.8 Phosphorus Level 3.6 Magnesium Level 2.1 Sodium Level 145 Potassium Level 3.2 Chloride Level 112 Carbon Dioxide Level 24.3 Anion Gap 9 Estimat Glomerular Filtration Rate 38 Urine Color YELLOW Urine Turbidity CLOUDY Urine pH 5.5 Urine Specific [place] 1.014 Urine Protein 30 Urine Glucose (UA) NEG Urine Ketones NEG Urine Occult Blood SMALL Urine Nitrite NEG Urine Bilirubin NEG Urine Urobilinogen LESS THAN 2.0 Urine Leukocyte Esterase NEG Urine RBC 6 Urine WBC 8 Urine Squamous Epithelial Cells 1 Urine Amorphous Sediment MOD Urine Bacteria OCC Urine Mucus FEW Microscopic Urinalysis Comment CATH-CULTURE IND Date/Time Source Procedure Growth Status 09/10/17 08:30 Blood Peripheral Aerobic Blood Culture - Final NO GROWTH IN 5 DAYS Complete 09/10/17 08:30 Blood Peripheral Anaerobic Blood Culture - Final NO GROWTH IN 5 DAYS Complete 09/27/17 11:30 Sputum Endotracheal Gram Stain Pending Received 09/27/17 11:30 Sputum Endotracheal Sputum Culture Pending Received 09/27/17 12:25 Urine Catheterized Urine Urine Culture Pending Received 09/15/17 08:31 Wound Abdomen Gram Stain - Final Complete 09/15/17 08:31 Wound Abdomen Wound Culture - Final NO GROWTH IN 72 HRS.--AEROBICALLY OR ... Complete Radiology Last Impressions Chest X-Ray 09/20/17 0000 Signed Impressions: Service Date/Time: Wednesday, September 20, 2017 17:46 - CONCLUSION: 1. No pneumothorax status post placement of left subclavian central line which has its tip in the superior vena cava. 2. Stable bibasilar patchiness. 3. Stable cardiomegaly. Darion Oates MD Head CT 09/19/17 0000 Signed Impressions: Service Date/Time: Tuesday, September 19, 2017 15:54 - CONCLUSION: 1. No evidence of acute intracranial pathology. No masses are identified. 2. Bilateral mastoiditis Jens John MD Chest CT 09/19/17 0000 Signed Impressions: Service Date/Time: Tuesday, September 19, 2017 15:59 - CONCLUSION: 1. Multifocal areas of consolidation greatest in right lower lobe most characteristic of pneumonia. 2. Abnormal soft tissue density in the right axilla contiguous with abnormal soft tissue density and inflammatory change extending along the right lateral chest wall. This could represent hemorrhage and/or inflammatory change. There are no gas bubbles are infection cannot be excluded. 3. There is fluid again noted in the upper abdomen. 4. Moderate elevation of the right hemidiaphragm. Yuri Holt MD Abdomen/Pelvis CT 09/19/17 0000 Signed Impressions: Service Date/Time: Tuesday, September 19, 2017 15:59 - CONCLUSION: 1. There is no evidence of abscess. 2. Mild ascites Jens John MD Abdomen Fluoroscopy 09/08/17 0000 Signed Impressions: Service Date/Time: Friday, September 08, 2017 12:04 - CONCLUSION: Uncomplicated nasogastric tube placement as above. Tae Archuleta Jr., MD Cardiovascular: Regular Lungs: Rhonchi Abdomen: Other (intermittent bowel sounds) Extremities: Perfused Wound Wound : Wound Location: Abdomen A/P Assessment and Plan 61yo F with small bowel perforation and peritonitis -Panculture for temp 101.6 -May need abdominal CT if cultures negative -Depending on hospital course, will discuss possible transfer to [facility] closer to the end of the week Flower Gomez Sep 27, 2017 13:24
[2017-09-27] MEDS: PIPERACIL-TAZO 3.375 GM PREMIX 50 ML IV SCH (17:42)
[2017-09-27] MEDS: hydrALAZINE HCL 20 MG/ML VIAL IV PUSH PRN (17:43)
[2017-09-27] MEDS: MULTIVITAMIN INJ 10 ML, FOLIC ACID INJ 1 MG, INSULIN HUMAN REGULAR INJ 40 UNITS in AMIN... IV-CENTRAL SCH (22:20)
[2017-09-28] VITALS (23 sets, daily range): BP systolic 135–168; BP diastolic 55–71; PULSE 75–94; RESP 16–30; TEMP 98.7–98.9; O2SAT 98–99
[2017-09-28] MEDS: PIPERACIL-TAZO 3.375 GM PREMIX 50 ML IV SCH ×4 (00:50→17:33)
[2017-09-28] MEDS: ALBUMIN 25% INJ 100 ML IV SCH ×3 (00:50→15:31)
[2017-09-28] MEDS: POTASSIUM CHLOR 40 MEQ PREMIX 100 ML IV PRN ×2 (01:23→04:02)
[2017-09-28 05:55] LABS: HEMATOCRIT 23.8 % (35.0-46.0); MEAN CELL VOLUME 88.7 FL (80.0-100.0); MEAN CORPUSCULAR HEMOGLOBIN 29.8 PG (27.0-34.0); MEAN CORPUSCULAR HGB CONC 33.7 % (32.0-36.0); PLATELET COUNT 288 TH/MM3 (150-450); RED BLOOD COUNT 2.69 MIL/MM3 (4.00-5.30); RED CELL DISTRIBUTION WIDTH 15.6 % (11.6-17.2); REVIEW FLAG FINAL; WHITE BLOOD COUNT 8.5 TH/MM3 (4.0-11.0)
[2017-09-28] MEDS: INSULIN ASPART SUPPLEMENTAL SCALE SQ SCH ×4 (06:00→17:32)
[2017-09-28 06:29] LABS: BICARBONATE 23.9 MEQ/L (21.0-32.0); MAGNESIUM 2.2 MG/DL (1.5-2.5); POTASSIUM 3.6 MEQ/L (3.5-5.1)
[2017-09-28] MEDS: LEVOTHYROXINE SODIUM 50 MCG TAB PO SCH (06:32)
[2017-09-28] MEDS: levETIRAcetam INJ 500 MG in SODIUM CHLORIDE 0.9% INJ 100 ML IV SCH ×2 (08:41→20:40)
[2017-09-28] MEDS: ENOXAPARIN SODIUM 60 MG/0.6 ML SYRINGE SQ SCH ×2 (08:41→20:41)
[2017-09-28] MEDS: CHLORHEXIDINE 0.12% (ORAL KIT) 15 ML CUP MT SCH ×2 (08:41→20:00)
[2017-09-28] MEDS: SODIUM CHLORIDE 0.9% FLUSH 10 ML FLUSH IV FLUSH SCH ×2 (08:41→20:40)
[2017-09-28] MEDS: PANTOPRAZOLE SODIUM 40 MG VIAL IV PUSH SCH (08:41)
[2017-09-28] MEDS: ARTIFICIAL TEARS OPTH SOLN 15 ML BTL EACH EYE SCH ×3 (09:00→17:32)
[2017-09-28] MEDS: INSULIN DETEMIR 100 UNITS/ML VIAL SQ SCH ×2 (09:21→20:40)
[2017-09-28] MEDS: MODAFINIL 200 MG TAB PO SCH (09:21)
[2017-09-28] MEDS: hydrALAZINE HCL 20 MG/ML VIAL IV PUSH PRN (09:41)
--- NOTE | 2017-09-28 12:25 | HHI.IDPN ---
Note Infectious Disease Note Patient is awakens and alert. Following commands. Afebrile. Bilious drainage from abdominal catheter. Presented to the emergency department on September 07 and was diagnosed with small bowel obstruction. She was taken to surgery and was found to have necrosed, perforated small bowel and she underwent small bowel resection. The patient previously had elective gastric sleeve on 08/22/2017. After that she was having nausea and vomiting and then difficulty passing stools. During the surgical procedure the patient had some purulent material within the abdomen. PAST MEDICAL HISTORY 1. Rheumatoid arthritis 2. Hypothyroidism 3. Gout 4. Depression 5. Seizure disorder 6. Attention deficit disorder 7. Cholecystectomy 8. Tonsillectomy 9. Ankle arthroplasty 10. Gastric sleeve. 08/22/17. ALLERGIES PROPOXYPHENE DARVOCET ADHESIVE TAPES ANTIBIOTICS none - stopped 09/27, Reached end date. Current Medications Medications (Trade) Dose Ordered Sig/Daniel Route PRN Reason Start Time Stop Time Status Last Admin Dose Admin Pantoprazole Sodium (Protonix Inj) 40 mg DAILY IV PUSH 09/08/17 09:00 09/28/17 08:41 Sodium Chloride (NS Flush) 2 ml UNSCH PRN IV FLUSH FLUSH AFTER USING IV ACCESS 09/08/17 19:15 Sodium Chloride (NS Flush) 2 ml BID IV FLUSH 09/08/17 21:00 09/28/17 08:41 Ondansetron HCl (Zofran Inj) 4 mg Q4H PRN IV PUSH NAUSEA OR VOMITING 09/08/17 19:15 09/08/17 20:00 Levetriacetam 500 mg/Sodium Chloride 105 ml @ 420 mls/hr Q12HR IV 09/09/17 09:00 09/28/17 08:41 Albumin Human 100 ml @ 60 mls/hr Q8H IV 09/09/17 08:00 09/28/17 08:40 Multivitamins 10 ml/Folic Acid 1 mg/Insulin Human Regular 40 units/ Amino Acids/ Electrolytes/ Dextrose 2,010.6 ml @ 75 mls/hr Q24H IV-CENTRAL 09/11/17 20:00 09/27/17 22:20 Albuterol/ Ipratropium (Duoneb Neb) 1 ampule Q2HR NEB PRN NEB SHORTNESS OF BREATH 09/12/17 14:00 09/21/17 08:45 Dextrose (D50w (Vial) Inj) 50 ml UNSCH PRN IV PUSH HYPOGLYCEMIA-SEE COMMENTS 09/13/17 12:30 Glucagon (Glucagon Inj) 1 mg UNSCH PRN OTHER HYPOGLYCEMIA-SEE COMMENTS 09/13/17 12:30 Insulin Aspart (NovoLOG SUPPLEMENTAL SCALE) 1 Q6HR SQ 09/13/17 12:30 09/27/17 18:02 Chlorhexidine Gluconate (Peridex 0.12% Liq) 15 ml BID@08,20 MT 09/13/17 20:00 09/28/17 08:41 Haloperidol Lactate (Haldol Inj) 5 mg Q4H PRN IV PUSH agitation 09/16/17 15:45 Fentanyl Citrate (fentaNYL INJ) 50 mcg Q1H PRN IV PUSH pain 8-10 if not taking po 09/16/17 15:45 09/26/17 19:49 Modafinil (Provigil) 200 mg DAILY PO 09/17/17 09:00 09/28/17 09:21 Artificial Tears (Tears Naturale Opth Soln) 1 drop TID EACH EYE 09/16/17 20:00 09/28/17 11:53 Hydralazine HCl (Apresoline Inj) 20 mg Q4H PRN IV PUSH SBP>160, DBP>90 09/18/17 23:45 09/28/17 09:41 Labetalol HCl (Trandate Inj) 10 mg Q4H PRN IV PUSH SBP>160, DBP>90 09/18/17 23:45 09/26/17 19:08 Insulin Detemir (Levemir Inj) 18 units Q12HR SQ 09/20/17 21:00 09/28/17 09:21 Levothyroxine Sodium (Synthroid) 50 mcg DAILY@0600 PO 09/24/17 06:00 09/28/17 06:32 Enoxaparin Sodium (Lovenox Inj) 60 mg Q12H SQ 09/26/17 21:00 09/28/17 08:41 Potassium Chloride 100 ml @ 50 mls/hr Q2H PRN IV For Potassium 2.8 - 3.2 mEq/L 09/27/17 11:00 09/28/17 04:02 Potassium Chloride 100 ml @ 50 mls/hr Q2H PRN IV For Potassium 2.8 - 3.2 mEq/L 09/27/17 11:00 Potassium Bicarb/ Potassium Chloride (K-Lyte Cl Eff) 50 meq UNSCH PRN PO For Potassium 3.3 - 3.5 mEq/L 09/27/17 11:00 Potassium Chloride 100 ml @ 25 mls/hr UNSCH PRN IV For Potassium 3.3 - 3.5 mEq/L 09/27/17 11:00 Potassium Chloride 100 ml @ 50 mls/hr Q2H PRN IV For Potassium 3.3 - 3.5 mEq/L 09/27/17 11:00 Magnesium Sulfate 4 gm/Sodium Chloride 100 ml @ 50 mls/hr UNSCH PRN IV For Magnesium 0.9 - 1.1 mg/dL 09/27/17 11:00 Magnesium Oxide (Mag-Ox) 800 mg UNSCH PRN PO For Magnesium 1.2 - 1.6 mg/dL 09/27/17 11:00 Magnesium Sulfate 2 gm/Sodium Chloride 100 ml @ 50 mls/hr UNSCH PRN IV For Magnesium 1.2 - 1.6 mg/dL 09/27/17 11:00 Potassium Phosphate (K-Phos) 2,000 mg Q4H PRN PO For Phosphorus < 2.5 mg/dL 09/27/17 11:00 Sodium Phosphate 30 mmol/Sodium Chloride 250 ml @ 42 mls/hr UNSCH PRN IV For Phosphorus < 2.5 mg/dL 09/27/17 11:00 Potassium Phosphate (K-Phos) 2,000 mg UNSCH PRN PO/TUBE SEE LABEL COMMENTS 09/27/17 11:00 Potassium Phosphate 30 mmol/ Sodium Chloride 260 ml @ 42 mls/hr UNSCH PRN IV SEE LABEL COMMENTS 09/27/17 11:00 Piperacillin Sod/ Tazobactam Sod 50 ml @ 100 mls/hr Q6H IV 09/27/17 18:00 09/28/17 11:08 OBJECTIVE: Vital Signs Date Time Temp Pulse Resp B/P (MAP) Pulse Ox O2 Delivery O2 Flow Rate FiO2 09/28/17 12:04 98.8 94 27 137/55 (82) 09/28/17 12:04 94 09/28/17 12:00 30 09/28/17 11:58 98 30 09/28/17 11:00 94 28 139/58 (85) 09/28/17 10:00 83 09/28/17 09:20 98 30 09/28/17 09:15 30 09/28/17 09:00 82 26 168/71 (103) 98 09/28/17 08:00 30 09/28/17 08:00 85 09/28/17 08:00 98.8 85 30 159/67 (97) 99 09/28/17 08:00 85 09/28/17 06:20 86 09/28/17 04:03 99 30 09/28/17 04:00 85 09/28/17 04:00 30 09/28/17 04:00 86 24 163/69 (100) 98 09/28/17 02:00 84 09/28/17 01:30 99 30 09/28/17 00:00 30 09/28/17 00:00 82 09/28/17 00:00 98.9 82 16 160/67 (98) 99 09/27/17 22:00 85 09/27/17 21:00 88 24 158/68 (98) 98 09/27/17 20:30 98 30 09/27/17 20:00 98.2 90 30 143/65 (91) 97 09/27/17 20:00 83 09/27/17 20:00 30 09/27/17 18:00 100.0 09/27/17 18:00 89 09/27/17 17:18 100 30 09/27/17 16:00 78 09/27/17 16:00 99.3 78 27 162/66 (98) 99 09/27/17 16:00 30 09/27/17 16:00 78 09/27/17 14:00 88 Laboratory Tests Test 09/27/17 04:30 09/28/17 05:40 White Blood Count 8.8 TH/MM3 8.5 TH/MM3 Red Blood Count 2.95 MIL/MM3 2.69 MIL/MM3 Hemoglobin 8.9 GM/DL 8.0 GM/DL Hematocrit 26.0 % 23.8 % Mean Corpuscular Volume 88.3 FL 88.7 FL Mean Corpuscular Hemoglobin 30.1 PG 29.8 PG Mean Corpuscular Hemoglobin Concent 34.1 % 33.7 % Red Cell Distribution Width 15.9 % 15.6 % Platelet Count 281 TH/MM3 288 TH/MM3 Mean Platelet Volume 8.5 FL 8.7 FL Laboratory Tests Test 09/27/17 04:30 09/28/17 05:40 Blood Urea Nitrogen 93 MG/DL 86 MG/DL Creatinine 1.42 MG/DL 1.35 MG/DL Random Glucose 167 MG/DL 240 MG/DL Calcium Level 8.8 MG/DL 9.0 MG/DL Phosphorus Level 3.6 MG/DL 3.7 MG/DL Magnesium Level 2.1 MG/DL 2.2 MG/DL Sodium Level 145 MEQ/L 147 MEQ/L Potassium Level 3.2 MEQ/L 3.6 MEQ/L Chloride Level 112 MEQ/L 113 MEQ/L Carbon Dioxide Level 24.3 MEQ/L 23.9 MEQ/L Anion Gap 9 MEQ/L 10 MEQ/L Estimat Glomerular Filtration Rate 38 ML/MIN 40 ML/MIN Microbiology Date/Time Source Procedure Growth Status 09/27/17 14:37 Blood Peripheral Aerobic Blood Culture - Preliminary NO GROWTH IN 1 DAY Resulted 09/27/17 14:37 Blood Peripheral Anaerobic Blood Culture - Preliminary NO GROWTH IN 1 DAY Resulted 09/27/17 14:32 Blood Peripheral Aerobic Blood Culture - Preliminary NO GROWTH IN 1 DAY Resulted 09/27/17 14:32 Blood Peripheral Anaerobic Blood Culture - Preliminary NO GROWTH IN 1 DAY Resulted 09/27/17 11:30 Sputum Endotracheal Gram Stain - Final Resulted 09/27/17 11:30 Sputum Endotracheal Sputum Culture - Preliminary NO GROWTH IN 24 HOURS. Resulted 09/27/17 12:25 Urine Catheterized Urine Urine Culture - Preliminary NO GROWTH IN 24 HOURS. Resulted IMAGING: Chest X-Ray 09/23/17 0600 Signed Impressions: Service Date/Time: Saturday, September 23, 2017 04:54 - CONCLUSION: No significant change has occurred. Shailesh Bernal MD Chest X-Ray 09/20/17 0000 Signed Impressions: Service Date/Time: Wednesday, September 20, 2017 17:46 - CONCLUSION: 1. No pneumothorax status post placement of left subclavian central line which has its tip in the superior vena cava. 2. Stable bibasilar patchiness. 3. Stable cardiomegaly. Darion Oates MD Chest X-Ray 09/19/17 0400 Signed Impressions: Service Date/Time: Tuesday, September 19, 2017 04:10 - CONCLUSION: 1. Interval improvement in bilateral pulmonary infiltrates. 2. The patient remains intubated. Yuri Holt MD Head CT 09/19/17 0000 Signed Impressions: Service Date/Time: Tuesday, September 19, 2017 15:54 - CONCLUSION: 1. No evidence of acute intracranial pathology. No masses are identified. 2. Bilateral mastoiditis Jens John MD Chest X-Ray 09/19/17 0000 Signed Impressions: Service Date/Time: Tuesday, September 19, 2017 09:44 - CONCLUSION: Increasing bibasilar parenchymal changes worse on the right. Raghu Mcfarland MD FACR Chest CT 09/19/17 0000 Signed Impressions: Service Date/Time: Tuesday, September 19, 2017 15:59 - CONCLUSION: 1. Multifocal areas of consolidation greatest in right lower lobe most characteristic of pneumonia. 2. Abnormal soft tissue density in the right axilla contiguous with abnormal soft tissue density and inflammatory change extending along the right lateral chest wall. This could represent hemorrhage and/or inflammatory change. There are no gas bubbles are infection cannot be excluded. 3. There is fluid again noted in the upper abdomen. 4. Moderate elevation of the right hemidiaphragm. Yuri Holt MD Abdomen/Pelvis CT 09/19/17 0000 Signed Impressions: Service Date/Time: Tuesday, September 19, 2017 15:59 - CONCLUSION: 1. There is no evidence of abscess. 2. Mild ascites Jens John MD PHYSICAL EXAM: GENERAL: No acute distress. HEENT: Head atraumatic, No icterus. NECK: Supple. No adenopathy. LUNGS: Clear BS. CARDIAC: Regular rate and rhythm. no murmurs, rubs or gallops. ABDOMEN: Obese. Soft. No tenderness appreciated. R. Arnie drain has dark drainage. EXTREMITIES: No clubbing, cyanosis. 1+ edema at the feet. NEURO: Awake and alert. SKIN: No rash. IMPRESSION 1. Septic shock. 2. Post exploratory laparotomy and small bowel resection along with lysis of adhesions for small bowel perforation. 3. Peritonitis due to due to small bowel perforation. 4. Acute respiratory failure. 5. VAP gram negative. E. coli. 6. Acute kidney disease. ? sepsis related. ? medication. 7. Leukocytosis. WBC now normal. 8. Mastoiditis on CT scan. 9. New fever. ? urine source. urine culture pending. Appears stable. RECOMMENDATIONS 1. Monitor off antibiotics. 2. Avoid nephrotoxic meds. 3. Monitor urine culture. 4. Monitor temp. Jus Enriquez MD Sep 28, 2017 12:25
--- NOTE | 2017-09-28 14:14 | HHI.CCPN ---
Subjective Remarks/Hospital Course Note for 09/27/17: 61-year-old morbidly obese female presents, patient of Dr. Epstein, status post gastric sleeve 08-22-17 now presents with nonbloody emesis and unable to have a bowel movement for a couple days. She states to get that bowel movement she had a use a glycerin suppository and it was just loose. He was taken emergently to operating room and was found to have a small bowel ischemia. She underwent laparoscopic small bowel resection by Dr. Epstein and is postoperatively admitted to critical care unit SUBJ 09/09/17: Remains very critically ill. Profound septic shock requiring Levophed at 40 mcg/m, Des-Synephrine at 500 mcg/m, vasopressin at 0.04 international units, and to be demand 5 g per KG per minute. Urine output 150 mL overnight. Maintaining oxygen saturation. A.m. labs are pending at this time. Surprisingly patient is still mentating able to communicate. Remains on IV fentanyl infusion for pain control. Operative report is pending at this time. Received total of 9 L of crystalloid postoperatively. Receiving 2 units of PRBC. I will replace calcium. Lactic acid 3.5 at 4 AM 09/10: Critically ill but stable. Levophed down to 12 mcg/min, vasopressin at 0.04 IU. Uo 650 ml in 24 hours, bilateral abdominal drains with 1 L output. Right drain had greenish output overnight and now serosanguineous. D/ W Dr Epstein- he confirms perforation and gross contamination 09/11: Remains critically. FiO2 requirement up to 60%, I have increased PEEP to 10. CXR consistent with ARDS versus fluid overload. Creatinine increased to 1.24. Urine output 600 ml in 24 hours. CVP 18-20. Start IV Bumex 1 mg every 12 hours with additional 1 mg dose now. Levophed at 1 mcg/min, vasopressin at 0.04 IU 09/12: remains critically ill but stable to improving. SBP 130-140 on vasopressin will DC vasopressin. Chest x-ray shows bilateral pulmonary edema, but oxygenation has improved. Stable on 50% and PEEP of 10. Creatinine has worsened to 1.67 but urine output 1.5 L in 24 hours with Bumex. CVP remains about 20. Will increase Bumex to 1 mg every 8 hours and give additional 1 mg now. Closely monitor creatinine. 09/13: Weaning off vasopressors. SHEA persists. CXR with diffuse infiltrates , will switch modes for better recruitment hopefully. 09/14: Gas exchange improved on APRV. Renal function deteriorating. Remains fluid overloaded. 09/15: Gas exchange improved but renal function continues to deteriorate. Continue APRV - bases struggle for domain. 09/16: remains fairly encephalopathic, likely hypoactive delirium. renal function still worse today, although ? peaked?. continue APRV: body habitus would make de-recruitment almost certain if we switch to conventional mode of ventilation. still diuresing well. 09/17: creatinine continues to worsen despite adequate diuresis. BP lower today. will hold lasix drip. off all sedation x 12h and still remains encephalopathic, not following commands. may need renal replacement therapy at some point. severe electrolyte derrangements due to diuresis, and free water deficit. 09/18: Cr slightly downtrended. mental status still poor. long discussion with family and multiple members updated. remains off sedation. continuing to hold diuresis. 09/19: Cr still slightly downtrended. surgery concerned possible tube feeds in ROSSI drain after starting trickle TF yesterday. also, patient had more labored breathing on vent. etco2 70s, worsening hypercarbia and peak pressures. changed vent modes temporarily, increased minute ventilation, improved pco2, but then patient became acutely hypotensive. stat CXR ordered. clinically worse today. in addition, still no improvements in mental status. CT abd/pelvis with PO contrast ordered as well as CT brain. 09/20: CXR clear, will convert back to spontaneous ventilation to avoid CO2 retention. Marked azotemia, likely contributing to obtundation. BUN > 130. 09/21: Oxygenation remains improved. Peripheral edema resolving. Azotemia persists. BUN > 140 today. 09/22: Slightly improving enough renal functions. H&H critical, no signs of active bleeding, more likely iatrogenic due to frequent blood draws and dilutional. 09/23: s/p trach in OR today. hgb improved. renal function improving. organs are stable enough for transfer to LTAC. needs slow wean with lots of pulmonary rehab. 09/24: still putting out 300cc/24h out of right ROSSI, with bile. mental status improving, slowly. 09/25: Improved neurological function. Controlled fistula. 09/26: Remains on mechanical ventilation via tracheostomy. Daily C Pap trials ongoing. On TPN. 09/27: No leukocytosis and fistula appears well controlled. LTAC will be good transfer for ongoing vent weaning. Objective Vital Signs Date Time Temp Pulse Resp B/P (MAP) Pulse Ox O2 Delivery O2 Flow Rate FiO2 09/28/17 13:06 88 25 135/57 (83) 98 09/28/17 12:04 98.8 09/28/17 12:00 30 Intake and Output 09/28/17 09/28/17 09/29/17 08:00 16:00 00:00 Intake Total 400 ml Output Total 2300 ml Balance -1900 ml Result Diagram: 09/28/17 0540 09/28/17 05 Objective Remarks GENERAL: morbidly obese, edematous female; encephalopathic SKIN: Warm and dry. HEAD: Normocephalic. EYES: No scleral icterus. No injection or drainage. NECK: Trachea midline. trach site clean. CARDIOVASCULAR: normal rate, regular rhythm. Heart sounds distant. JVD difficult to assess due to body habitus. RESPIRATORY:equal chest rise. PRVC PEEP 10 GASTROINTESTINAL: Abdomen soft, tender, distended. Morbidly obese. Some bowel sounds. MUSCULOSKELETAL: No cyanosis, or edema. Well perfused. 2+ edema, diffuse. NEURO EXAM: Slightly more responsive, not following commands but withdraws all extremities. Pupils are round, reactive to light. Opens eyes spontaneously some. A/P Assessment and Plan Assessment: 61yF s/p gastric bypass complicated by small bowel obstruction, intra-abdominal sepsis, persistent respiratory failure, volume overload. remains off pathway. s/p trach. improving organ systems. needs long-term rehab, likely LTAC. will allow surgery to guide plan for bile leak. A/P: NEURO: Seizure disorder Metabolic encephalopathy Hypoactive Delirium - Currently off all sedation - Keppra IV. - hold sedating meds - fentanyl prn for positioning. - haldol for agitation - provigil for wakefulness. RESP: Acute hypoxemic respiratory failure - persistent, stable. ARDS HCAP with E Coli - Continue mechanical ventilation - Vent bundle - DuoNeb every 6 hours scheduled and when necessary - Bilateral pulmonary opacities, fluid overload and acute lung injury/ARDS - Tracheostomy by Dr. Preciado 09/23 - will need slow wean, LTAC appropriate. CVS: Septic shock-resolved. Lactic acidosis - resolved. - s/p Aggressive IV fluid resuscitation, postop received 9 L of normal saline, 2 units of PRBC - s/p hydrocortisone taper. give 1 dose hydrocortisone in case this is rebound adrenal insufficiency GI: Small bowel ischemia/Perforation Peritonitis Bile leak - S/P Laparoscopic SBR for gangrenous small bowel - Post op surgical management per Dr. Epstein general surgery - PO feeding per surgery. - IV Protonix. Started TPN 09/10/17 - ct abd/pelvis with PO contrast showing no abscess 09/19 - ROSSI management per gen surgery. FEN: Hypernatremia Free water deficit Hypokalemia Hypomagnesemia - aggressive electrolyte replacement - Decrease d5w to 40cc/hr for free water replacement - recheck electrolytes on daily bmp : Acute kidney failure - improving. Contraction alkalosis - improving. - ATN most likely from severe septic shock - Maintain Bedolla for accurate intake output HEME: Anemia secondary to acute blood loss - s/p 2 units of PRBC, transfuse to keep Hb >7.5 - Monitor H&H - Drop in platelet most likely sepsis, now improving. ID: Septic shock - resolved. Peritonitis HCAP with E Coli - Sputum culture E Coli - Blood cultures, urine culture follow up - ID following - continue zosyn. ENDO: Diabetes mellitus Hypocalcemia - Insulin sliding scale, and IV insulin with TPN - Electrolyte replacement per protocol - Continue levemir bid - po synthroid now that gut function improving. DVT GI prophylaxis - Teds SCDs - Pharmacological DVT prophylaxis Lovenox 40 mg subcutaneous every 12- reduced to 40 qd due to worsening creatinine - Protonix Lines: Right IJ line d/c'd 09/20, New left SCV CVL placed 09/20. Overall impression: Continue TPN, control fistula. Improving general condition. Jose Landin MD Sep 28, 2017 14:14
--- NOTE | 2017-09-28 14:21 | HHI.CCPN ---
Subjective Remarks/Hospital Course Note for 09/28/17: 61-year-old morbidly obese female presents, patient of Dr. Epstein, status post gastric sleeve 08-22-17 now presents with nonbloody emesis and unable to have a bowel movement for a couple days. She states to get that bowel movement she had a use a glycerin suppository and it was just loose. He was taken emergently to operating room and was found to have a small bowel ischemia. She underwent laparoscopic small bowel resection by Dr. Epstein and is postoperatively admitted to critical care unit SUBJ 09/09/17: Remains very critically ill. Profound septic shock requiring Levophed at 40 mcg/m, Des-Synephrine at 500 mcg/m, vasopressin at 0.04 international units, and to be demand 5 g per KG per minute. Urine output 150 mL overnight. Maintaining oxygen saturation. A.m. labs are pending at this time. Surprisingly patient is still mentating able to communicate. Remains on IV fentanyl infusion for pain control. Operative report is pending at this time. Received total of 9 L of crystalloid postoperatively. Receiving 2 units of PRBC. I will replace calcium. Lactic acid 3.5 at 4 AM 09/10: Critically ill but stable. Levophed down to 12 mcg/min, vasopressin at 0.04 IU. Uo 650 ml in 24 hours, bilateral abdominal drains with 1 L output. Right drain had greenish output overnight and now serosanguineous. D/ W Dr Epstein- he confirms perforation and gross contamination 09/11: Remains critically. FiO2 requirement up to 60%, I have increased PEEP to 10. CXR consistent with ARDS versus fluid overload. Creatinine increased to 1.24. Urine output 600 ml in 24 hours. CVP 18-20. Start IV Bumex 1 mg every 12 hours with additional 1 mg dose now. Levophed at 1 mcg/min, vasopressin at 0.04 IU 09/12: remains critically ill but stable to improving. SBP 130-140 on vasopressin will DC vasopressin. Chest x-ray shows bilateral pulmonary edema, but oxygenation has improved. Stable on 50% and PEEP of 10. Creatinine has worsened to 1.67 but urine output 1.5 L in 24 hours with Bumex. CVP remains about 20. Will increase Bumex to 1 mg every 8 hours and give additional 1 mg now. Closely monitor creatinine. 09/13: Weaning off vasopressors. SHEA persists. CXR with diffuse infiltrates , will switch modes for better recruitment hopefully. 09/14: Gas exchange improved on APRV. Renal function deteriorating. Remains fluid overloaded. 09/15: Gas exchange improved but renal function continues to deteriorate. Continue APRV - bases struggle for domain. 09/16: remains fairly encephalopathic, likely hypoactive delirium. renal function still worse today, although ? peaked?. continue APRV: body habitus would make de-recruitment almost certain if we switch to conventional mode of ventilation. still diuresing well. 09/17: creatinine continues to worsen despite adequate diuresis. BP lower today. will hold lasix drip. off all sedation x 12h and still remains encephalopathic, not following commands. may need renal replacement therapy at some point. severe electrolyte derrangements due to diuresis, and free water deficit. 09/18: Cr slightly downtrended. mental status still poor. long discussion with family and multiple members updated. remains off sedation. continuing to hold diuresis. 09/19: Cr still slightly downtrended. surgery concerned possible tube feeds in ROSSI drain after starting trickle TF yesterday. also, patient had more labored breathing on vent. etco2 70s, worsening hypercarbia and peak pressures. changed vent modes temporarily, increased minute ventilation, improved pco2, but then patient became acutely hypotensive. stat CXR ordered. clinically worse today. in addition, still no improvements in mental status. CT abd/pelvis with PO contrast ordered as well as CT brain. 09/20: CXR clear, will convert back to spontaneous ventilation to avoid CO2 retention. Marked azotemia, likely contributing to obtundation. BUN > 130. 09/21: Oxygenation remains improved. Peripheral edema resolving. Azotemia persists. BUN > 140 today. 09/22: Slightly improving enough renal functions. H&H critical, no signs of active bleeding, more likely iatrogenic due to frequent blood draws and dilutional. 09/23: s/p trach in OR today. hgb improved. renal function improving. organs are stable enough for transfer to LTAC. needs slow wean with lots of pulmonary rehab. 09/24: still putting out 300cc/24h out of right ROSSI, with bile. mental status improving, slowly. 09/25: Improved neurological function. Controlled fistula. 09/26: Remains on mechanical ventilation via tracheostomy. Daily C Pap trials ongoing. On TPN. 09/27: No leukocytosis and fistula appears well controlled. LTAC will be good transfer for ongoing vent weaning. 09/28: Low grade fever but no leukocytosis. Stable hemodynamics. Abdomen benign. All cultures NG. Objective Vital Signs Date Time Temp Pulse Resp B/P (MAP) Pulse Ox O2 Delivery O2 Flow Rate FiO2 09/28/17 13:06 88 25 135/57 (83) 98 09/28/17 12:04 98.8 09/28/17 12:00 30 Intake and Output 09/28/17 09/28/17 09/29/17 08:00 16:00 00:00 Intake Total 400 ml Output Total 2300 ml Balance -1900 ml Result Diagram: 09/28/17 0540 09/28/17 0540 Objective Remarks GENERAL: morbidly obese, edematous female; encephalopathic SKIN: Warm and dry. HEAD: Normocephalic. EYES: No scleral icterus. No injection or drainage. NECK: Trachea midline. trach site clean. CARDIOVASCULAR: normal rate, regular rhythm. Heart sounds distant. JVD difficult to assess due to body habitus. RESPIRATORY:equal chest rise. PRVC PEEP 10. Clear, decreased in bases. GASTROINTESTINAL: Abdomen soft, tender, distended. Morbidly obese. Some bowel sounds. MUSCULOSKELETAL: No cyanosis, or edema. Well perfused. 2+ edema, diffuse. NEURO EXAM: Slightly more responsive, not following commands but withdraws all extremities. Pupils are round, reactive to light. Opens eyes spontaneously some. Tracks intermittently. A/P Assessment and Plan Assessment: 61yF s/p gastric bypass complicated by small bowel obstruction, intra-abdominal sepsis, persistent respiratory failure, volume overload. remains off pathway. s/p trach. improving organ systems. needs long-term rehab, likely LTAC. will allow surgery to guide plan for bile leak. for now just control fistula with drain. A/P: NEURO: Seizure disorder Metabolic encephalopathy Hypoactive Delirium - Currently off all sedation - Keppra IV. - hold sedating meds - fentanyl prn for positioning. - haldol for agitation - provigil for wakefulness. RESP: Acute hypoxemic respiratory failure - persistent, stable. ARDS HCAP with E Coli - Continue mechanical ventilation - Vent bundle - DuoNeb every 6 hours scheduled and when necessary - Bilateral pulmonary opacities, fluid overload and acute lung injury/ARDS - Tracheostomy by Dr. Preciado 09/23 - will need slow wean, LTAC appropriate. CVS: Septic shock-resolved. Lactic acidosis - resolved. - s/p Aggressive IV fluid resuscitation, postop received 9 L of normal saline, 2 units of PRBC - s/p hydrocortisone taper. give 1 dose hydrocortisone in case this is rebound adrenal insufficiency GI: Small bowel ischemia/Perforation Peritonitis Bile leak - S/P Laparoscopic SBR for gangrenous small bowel - Post op surgical management per Dr. Epstein general surgery - PO feeding per surgery. - IV Protonix. Started TPN 09/10/17 - ct abd/pelvis with PO contrast showing no abscess 09/19 - ROSSI management per gen surgery. FEN: Hypernatremia Free water deficit Hypokalemia Hypomagnesemia - aggressive electrolyte replacement - Decrease d5w to 40cc/hr for free water replacement - recheck electrolytes on daily bmp : Acute kidney failure - improving. Contraction alkalosis - improving. - ATN most likely from severe septic shock - Maintain [place] for accurate intake output HEME: Anemia secondary to acute blood loss - s/p 2 units of PRBC, transfuse to keep Hb >7.5 - Monitor H&H - Drop in platelet most likely sepsis, now improving. ID: Septic shock - resolved. Peritonitis HCAP with E Coli - Sputum culture E Coli - Blood cultures, urine culture follow up - ID following - continue zosyn. ENDO: Diabetes mellitus Hypocalcemia - Insulin sliding scale, and IV insulin with TPN - Electrolyte replacement per protocol - Continue levemir bid - po synthroid now that gut function improving. DVT GI prophylaxis - Teds SCDs - Pharmacological DVT prophylaxis Lovenox 40 mg subcutaneous every 12- reduced to 40 qd due to worsening creatinine - Protonix Lines: Right IJ line d/c'd 09/20, New left SCV CVL placed 09/20. Change if recurring fever. Overall impression: Continue TPN, control fistula. Improving general condition. Will benefit from LTAC. Jose Landin MD Sep 28, 2017 14:21
--- NOTE | 2017-09-28 15:29 | HHI.PR ---
Subjective Subjective Notes Not tolerating CPAP today Does continue to slow neurological improvements Objective Vitals/I&O Vital Signs Date Time Temp Pulse Resp B/P (MAP) Pulse Ox O2 Delivery O2 Flow Rate FiO2 09/28/17 13:06 88 25 135/57 (83) 98 09/28/17 12:04 98.8 09/28/17 12:00 30 Labs Laboratory Tests Test 09/28/17 05:40 White Blood Count 8.5 Red Blood Count 2.69 Hemoglobin 8.0 Hematocrit 23.8 Mean Corpuscular Volume 88.7 Mean Corpuscular Hemoglobin 29.8 Mean Corpuscular Hemoglobin Concent 33.7 Red Cell Distribution Width 15.6 Platelet Count 288 Mean Platelet Volume 8.7 Blood Urea Nitrogen 86 Creatinine 1.35 Random Glucose 240 Calcium Level 9.0 Phosphorus Level 3.7 Magnesium Level 2.2 Sodium Level 147 Potassium Level 3.6 Chloride Level 113 Carbon Dioxide Level 23.9 Anion Gap 10 Estimat Glomerular Filtration Rate 40 Date/Time Source Procedure Growth Status 09/27/17 14:37 Blood Peripheral Aerobic Blood Culture - Preliminary NO GROWTH IN 1 DAY Resulted 09/27/17 14:37 Blood Peripheral Anaerobic Blood Culture - Preliminary NO GROWTH IN 1 DAY Resulted 09/27/17 11:30 Sputum Endotracheal Gram Stain - Final Resulted 09/27/17 11:30 Sputum Endotracheal Sputum Culture - Preliminary NO GROWTH IN 24 HOURS. Resulted 09/27/17 12:25 Urine Catheterized Urine Urine Culture - Preliminary NO GROWTH IN 24 HOURS. Resulted 09/15/17 08:31 Wound Abdomen Gram Stain - Final Complete 09/15/17 08:31 Wound Abdomen Wound Culture - Final NO GROWTH IN 72 HRS.--AEROBICALLY OR ... Complete Radiology Last Impressions Chest X-Ray 09/23/17 0600 Signed Impressions: Service Date/Time: Saturday, September 23, 2017 04:54 - CONCLUSION: No significant change has occurred. Shailesh Bernal MD Head CT 09/19/17 0000 Signed Impressions: Service Date/Time: Tuesday, September 19, 2017 15:54 - CONCLUSION: 1. No evidence of acute intracranial pathology. No masses are identified. 2. Bilateral mastoiditis Jens John MD Chest CT 09/19/17 0000 Signed Impressions: Service Date/Time: Tuesday, September 19, 2017 15:59 - CONCLUSION: 1. Multifocal areas of consolidation greatest in right lower lobe most characteristic of pneumonia. 2. Abnormal soft tissue density in the right axilla contiguous with abnormal soft tissue density and inflammatory change extending along the right lateral chest wall. This could represent hemorrhage and/or inflammatory change. There are no gas bubbles are infection cannot be excluded. 3. There is fluid again noted in the upper abdomen. 4. Moderate elevation of the right hemidiaphragm. Yuri Holt MD Abdomen/Pelvis CT 09/19/17 0000 Signed Impressions: Service Date/Time: Tuesday, September 19, 2017 15:59 - CONCLUSION: 1. There is no evidence of abscess. 2. Mild ascites Jens John MD Abdomen Fluoroscopy 09/08/17 0000 Signed Impressions: Service Date/Time: Friday, September 08, 2017 12:04 - CONCLUSION: Uncomplicated nasogastric tube placement as above. Tae Archuleta Jr., MD Cardiovascular: Regular Lungs: Rhonchi Abdomen: Other (intermittent bowel sounds) Extremities: Perfused Wound Wound : Wound Location: Abdomen (Right ROSSI continues with bileous drainage. Baldwin have been removed from other incision sites) A/P Assessment and Plan 61yo F with small bowel perforation and peritonitis -No growth from cultures in 24 hours -Continue vent weaning as appropriate -Continue to monitor ROSSI drainage, will need to continue with TPN for now D/W RN and family at bedside Flower Gomez Sep 28, 2017 15:29
[2017-09-28] MEDS: MULTIVITAMIN INJ 10 ML, FOLIC ACID INJ 1 MG, INSULIN HUMAN REGULAR INJ 40 UNITS in AMIN... IV-CENTRAL SCH (19:41)
[2017-09-29] VITALS (18 sets, daily range): BP systolic 138–156; BP diastolic 55–70; PULSE 69–90; RESP 20–34; TEMP 98.6–99.1; O2SAT 98–100
[2017-09-29] MEDS: PIPERACIL-TAZO 3.375 GM PREMIX 50 ML IV SCH ×4 (00:47→17:48)
[2017-09-29] MEDS: ALBUMIN 25% INJ 100 ML IV SCH ×3 (00:47→16:46)
[2017-09-29 05:46] LABS: HEMATOCRIT 22.4 % (35.0-46.0); MEAN CELL VOLUME 89.1 FL (80.0-100.0); MEAN CORPUSCULAR HEMOGLOBIN 28.9 PG (27.0-34.0); MEAN CORPUSCULAR HGB CONC 32.4 % (32.0-36.0); PLATELET COUNT 297 TH/MM3 (150-450); RED BLOOD COUNT 2.51 MIL/MM3 (4.00-5.30); RED CELL DISTRIBUTION WIDTH 15.7 % (11.6-17.2); REVIEW FLAG FINAL
[2017-09-29] MEDS: INSULIN ASPART SUPPLEMENTAL SCALE SQ SCH ×4 (06:00→17:49)
[2017-09-29 06:22] LABS: BICARBONATE 24.6 MEQ/L (21.0-32.0); MAGNESIUM 2.1 MG/DL (1.5-2.5); POTASSIUM 3.2 MEQ/L (3.5-5.1)
[2017-09-29] MEDS: LEVOTHYROXINE SODIUM 50 MCG TAB PO SCH (06:27)
[2017-09-29] MEDS: CHLORHEXIDINE 0.12% (ORAL KIT) 15 ML CUP MT SCH ×2 (08:00→20:00)
[2017-09-29] MEDS: POTASSIUM CHLOR 40 MEQ PREMIX 100 ML IV SCH ×2 (08:21→11:46)
[2017-09-29] MEDS: PANTOPRAZOLE SODIUM 40 MG VIAL IV PUSH SCH (08:26)
[2017-09-29] MEDS: MODAFINIL 200 MG TAB PO SCH (08:26)
[2017-09-29] MEDS: ARTIFICIAL TEARS OPTH SOLN 15 ML BTL EACH EYE SCH ×3 (08:26→17:48)
[2017-09-29] MEDS: levETIRAcetam INJ 500 MG in SODIUM CHLORIDE 0.9% INJ 100 ML IV SCH ×2 (08:26→20:31)
[2017-09-29] MEDS: SODIUM CHLORIDE 0.9% FLUSH 10 ML FLUSH IV FLUSH SCH ×2 (08:26→20:32)
[2017-09-29] MEDS: INSULIN DETEMIR 100 UNITS/ML VIAL SQ SCH ×2 (08:38→20:32)
--- NOTE | 2017-09-29 11:27 | HHI.IDPN ---
Note Infectious Disease Note Patient is awake and alert. Follows commands. Afebrile. Presented to the emergency department on September 07 and was diagnosed with small bowel obstruction. She was taken to surgery and was found to have necrosed, perforated small bowel and she underwent small bowel resection. The patient previously had elective gastric sleeve on 08/22/2017. After that she was having nausea and vomiting and then difficulty passing stools. During the surgical procedure the patient had some purulent material within the abdomen. PAST MEDICAL HISTORY 1. Rheumatoid arthritis 2. Hypothyroidism 3. Gout 4. Depression 5. Seizure disorder 6. Attention deficit disorder 7. Cholecystectomy 8. Tonsillectomy 9. Ankle arthroplasty 10. Gastric sleeve. 08/22/17. ALLERGIES PROPOXYPHENE DARVOCET ADHESIVE TAPES ANTIBIOTICS Pip/Tazobactam. OBJECTIVE: Vital Signs Date Time Temp Pulse Resp B/P (MAP) Pulse Ox O2 Delivery O2 Flow Rate FiO2 09/29/17 10:00 82 09/29/17 08:56 99 30 09/29/17 08:00 30 09/29/17 08:00 98.9 84 20 156/58 (90) 99 09/29/17 08:00 85 09/29/17 06:00 83 09/29/17 04:04 100 30 09/29/17 04:00 82 09/29/17 04:00 30 09/29/17 04:00 98.6 90 22 150/55 (86) 100 09/29/17 02:00 85 09/29/17 00:00 30 09/29/17 00:00 98.7 86 22 138/56 (83) 99 09/29/17 00:00 85 09/28/17 22:58 99 30 09/28/17 22:00 84 09/28/17 20:17 99 30 09/28/17 20:00 75 09/28/17 20:00 98.8 75 22 136/64 (88) 98 09/28/17 20:00 30 09/28/17 18:00 82 09/28/17 16:25 92 09/28/17 16:21 98.7 09/28/17 16:20 30 09/28/17 16:20 90 22 135/63 (87) 98 09/28/17 14:00 87 09/28/17 13:06 88 25 135/57 (83) 98 09/28/17 12:04 98.8 94 27 137/55 (82) 09/28/17 12:04 94 09/28/17 12:00 30 09/28/17 11:58 98 30 Laboratory Tests Test 09/28/17 05:40 09/29/17 05:35 White Blood Count 8.5 TH/MM3 7.0 TH/MM3 Red Blood Count 2.69 MIL/MM3 2.51 MIL/MM3 Hemoglobin 8.0 GM/DL 7.3 GM/DL Hematocrit 23.8 % 22.4 % Mean Corpuscular Volume 88.7 FL 89.1 FL Mean Corpuscular Hemoglobin 29.8 PG 28.9 PG Mean Corpuscular Hemoglobin Concent 33.7 % 32.4 % Red Cell Distribution Width 15.6 % 15.7 % Platelet Count 288 TH/MM3 297 TH/MM3 Mean Platelet Volume 8.7 FL 8.2 FL Laboratory Tests Test 09/28/17 05:40 09/29/17 05:35 Blood Urea Nitrogen 86 MG/DL 86 MG/DL Creatinine 1.35 MG/DL 1.29 MG/DL Random Glucose 240 MG/DL 117 MG/DL Calcium Level 9.0 MG/DL 9.1 MG/DL Phosphorus Level 3.7 MG/DL 3.7 MG/DL Magnesium Level 2.2 MG/DL 2.1 MG/DL Sodium Level 147 MEQ/L 152 MEQ/L Potassium Level 3.6 MEQ/L 3.2 MEQ/L Chloride Level 113 MEQ/L 118 MEQ/L Carbon Dioxide Level 23.9 MEQ/L 24.6 MEQ/L Anion Gap 10 MEQ/L 9 MEQ/L Estimat Glomerular Filtration Rate 40 ML/MIN 42 ML/MIN Prealbumin 19 MG/DL Microbiology Date/Time Source Procedure Growth Status 09/27/17 14:37 Blood Peripheral Aerobic Blood Culture - Preliminary NO GROWTH IN 2 DAYS Resulted 09/27/17 14:37 Blood Peripheral Anaerobic Blood Culture - Preliminary NO GROWTH IN 2 DAYS Resulted 09/27/17 14:32 Blood Peripheral Aerobic Blood Culture - Preliminary NO GROWTH IN 2 DAYS Resulted 09/27/17 14:32 Blood Peripheral Anaerobic Blood Culture - Preliminary NO GROWTH IN 2 DAYS Resulted 09/27/17 11:30 Sputum Endotracheal Gram Stain - Final Complete 09/27/17 11:30 Sputum Endotracheal Sputum Culture - Final RARE GROWTH NORMAL RESPIRATORY MANUEL Complete 09/27/17 12:25 Urine Catheterized Urine Urine Culture - Final NO GROWTH IN 48 HOURS. Complete IMAGING: Chest X-Ray 09/23/17 0600 Signed Impressions: Service Date/Time: Saturday, September 23, 2017 04:54 - CONCLUSION: No significant change has occurred. Shailesh Bernal MD Chest X-Ray 09/20/17 0000 Signed Impressions: Service Date/Time: Wednesday, September 20, 2017 17:46 - CONCLUSION: 1. No pneumothorax status post placement of left subclavian central line which has its tip in the superior vena cava. 2. Stable bibasilar patchiness. 3. Stable cardiomegaly. Darion Oates MD Chest X-Ray 09/19/17 0400 Signed Impressions: Service Date/Time: Tuesday, September 19, 2017 04:10 - CONCLUSION: 1. Interval improvement in bilateral pulmonary infiltrates. 2. The patient remains intubated. Yuri Holt MD Head CT 09/19/17 0000 Signed Impressions: Service Date/Time: Tuesday, September 19, 2017 15:54 - CONCLUSION: 1. No evidence of acute intracranial pathology. No masses are identified. 2. Bilateral mastoiditis Jens John MD Chest X-Ray 09/19/17 0000 Signed Impressions: Service Date/Time: Tuesday, September 19, 2017 09:44 - CONCLUSION: Increasing bibasilar parenchymal changes worse on the right. Raghu Mcfarland MD FACR Chest CT 09/19/17 0000 Signed Impressions: Service Date/Time: Tuesday, September 19, 2017 15:59 - CONCLUSION: 1. Multifocal areas of consolidation greatest in right lower lobe most characteristic of pneumonia. 2. Abnormal soft tissue density in the right axilla contiguous with abnormal soft tissue density and inflammatory change extending along the right lateral chest wall. This could represent hemorrhage and/or inflammatory change. There are no gas bubbles are infection cannot be excluded. 3. There is fluid again noted in the upper abdomen. 4. Moderate elevation of the right hemidiaphragm. Yuri Holt MD Abdomen/Pelvis CT 09/19/17 0000 Signed Impressions: Service Date/Time: Tuesday, September 19, 2017 15:59 - CONCLUSION: 1. There is no evidence of abscess. 2. Mild ascites Jens John MD PHYSICAL EXAM: GENERAL: No acute distress. HEENT: Head atraumatic, No icterus. Oropharynx mucosa moist. NECK: Supple. No adenopathy. LUNGS: Basilar rhonchi. CARDIAC: Regular rate and rhythm. no murmurs, rubs or gallops. ABDOMEN: Obese. Soft. No tenderness appreciated. R. Arnie drain has dark drainage. EXTREMITIES: No clubbing, cyanosis. No edema. NEURO: Awake and alert. SKIN: No rash. IMPRESSION 1. Septic shock. 2. Post exploratory laparotomy and small bowel resection along with lysis of adhesions for small bowel perforation. 3. Peritonitis due to due to small bowel perforation. 4. Acute respiratory failure. 5. VAP gram negative. E. coli. 6. Acute kidney disease. ? sepsis related. ? medication. 7. Leukocytosis. WBC now normal. 8. Mastoiditis on CT scan. 9. Fever - temp improved. RECOMMENDATIONS 1. If no fever in next 24 hours the Zosyn can be stopped. 2. Avoid nephrotoxic meds. 3. Follow blood culture. 4. Monitor temp. Jus Enriquez MD Sep 29, 2017 11:27
--- NOTE | 2017-09-29 12:32 | RADRPT ---
EXAM DATE/TIME: 09/29/2017 11:31 [facility] COMPARISON: CHEST SINGLE AP, September 23, 2017, 4:54. INDICATIONS : Respiratory Failure. MEDICAL HISTORY : Rheumatoid arthritis. Seizures. SURGICAL HISTORY : Cholecystectomy. gastric sleeve. ENCOUNTER: Subsequent ACUITY: 3 weeks PAIN SCORE: Non-responsive. LOCATION: Bilateral chest FINDINGS: The heart is enlarged or bilateral effusions and diffuse interstitial prominence consistent with diogo estive failure. The patient's left subclavian central line and nasogastric tube are in good position. There is an endotracheal tube present. The proximal portion of the tube is visualized. The distal ti p of the tube is not visualized on this examination. Repeat examination for further assessment could be performed. CONCLUSION: 1. Cardiomegaly with bilateral effusions and interstitial prominence consistent with congestive failu re. 2. The tip of the endotracheal tube is not visualized due to technique. If further assessment of this is desired repeat exam could be attempted. 3. Appearance of the parenchyma has worsened compared to prior. Haris Mcfarland MD on September 29, 2017 at 12:29 Board Certified Radiologist. This report was verified electronically.
--- NOTE | 2017-09-29 13:14 | HHI.CCPN ---
Subjective Remarks/Hospital Course Note for 09/28/17: 61-year-old morbidly obese female presents, patient of Dr. Epstein, status post gastric sleeve 08-22-17 now presents with nonbloody emesis and unable to have a bowel movement for a couple days. She states to get that bowel movement she had a use a glycerin suppository and it was just loose. He was taken emergently to operating room and was found to have a small bowel ischemia. She underwent laparoscopic small bowel resection by Dr. Epstein and is postoperatively admitted to critical care unit SUBJ 09/09/17: Remains very critically ill. Profound septic shock requiring Levophed at 40 mcg/m, Des-Synephrine at 500 mcg/m, vasopressin at 0.04 international units, and to be demand 5 g per KG per minute. Urine output 150 mL overnight. Maintaining oxygen saturation. A.m. labs are pending at this time. Surprisingly patient is still mentating able to communicate. Remains on IV fentanyl infusion for pain control. Operative report is pending at this time. Received total of 9 L of crystalloid postoperatively. Receiving 2 units of PRBC. I will replace calcium. Lactic acid 3.5 at 4 AM 09/10: Critically ill but stable. Levophed down to 12 mcg/min, vasopressin at 0.04 IU. Uo 650 ml in 24 hours, bilateral abdominal drains with 1 L output. Right drain had greenish output overnight and now serosanguineous. D/ W Dr Epstein- he confirms perforation and gross contamination 09/11: Remains critically. FiO2 requirement up to 60%, I have increased PEEP to 10. CXR consistent with ARDS versus fluid overload. Creatinine increased to 1.24. Urine output 600 ml in 24 hours. CVP 18-20. Start IV Bumex 1 mg every 12 hours with additional 1 mg dose now. Levophed at 1 mcg/min, vasopressin at 0.04 IU 09/12: remains critically ill but stable to improving. SBP 130-140 on vasopressin will DC vasopressin. Chest x-ray shows bilateral pulmonary edema, but oxygenation has improved. Stable on 50% and PEEP of 10. Creatinine has worsened to 1.67 but urine output 1.5 L in 24 hours with Bumex. CVP remains about 20. Will increase Bumex to 1 mg every 8 hours and give additional 1 mg now. Closely monitor creatinine. 09/13: Weaning off vasopressors. SHEA persists. CXR with diffuse infiltrates , will switch modes for better recruitment hopefully. 09/14: Gas exchange improved on APRV. Renal function deteriorating. Remains fluid overloaded. 09/15: Gas exchange improved but renal function continues to deteriorate. Continue APRV - bases struggle for domain. 09/16: remains fairly encephalopathic, likely hypoactive delirium. renal function still worse today, although ? peaked?. continue APRV: body habitus would make de-recruitment almost certain if we switch to conventional mode of ventilation. still diuresing well. 09/17: creatinine continues to worsen despite adequate diuresis. BP lower today. will hold lasix drip. off all sedation x 12h and still remains encephalopathic, not following commands. may need renal replacement therapy at some point. severe electrolyte derrangements due to diuresis, and free water deficit. 09/18: Cr slightly downtrended. mental status still poor. long discussion with family and multiple members updated. remains off sedation. continuing to hold diuresis. 09/19: Cr still slightly downtrended. surgery concerned possible tube feeds in ROSSI drain after starting trickle TF yesterday. also, patient had more labored breathing on vent. etco2 70s, worsening hypercarbia and peak pressures. changed vent modes temporarily, increased minute ventilation, improved pco2, but then patient became acutely hypotensive. stat CXR ordered. clinically worse today. in addition, still no improvements in mental status. CT abd/pelvis with PO contrast ordered as well as CT brain. 09/20: CXR clear, will convert back to spontaneous ventilation to avoid CO2 retention. Marked azotemia, likely contributing to obtundation. BUN > 130. 09/21: Oxygenation remains improved. Peripheral edema resolving. Azotemia persists. BUN > 140 today. 09/22: Slightly improving enough renal functions. H&H critical, no signs of active bleeding, more likely iatrogenic due to frequent blood draws and dilutional. 09/23: s/p trach in OR today. hgb improved. renal function improving. organs are stable enough for transfer to LTAC. needs slow wean with lots of pulmonary rehab. 09/24: still putting out 300cc/24h out of right ROSSI, with bile. mental status improving, slowly. 09/25: Improved neurological function. Controlled fistula. 09/26: Remains on mechanical ventilation via tracheostomy. Daily C Pap trials ongoing. On TPN. 09/27: No leukocytosis and fistula appears well controlled. LTAC will be good transfer for ongoing vent weaning. 09/28: Low grade fever but no leukocytosis. Stable hemodynamics. Abdomen benign. All cultures NG. 09/29: Tolerating C Pap trials. Chest x-ray shows bilateral effusions. Initiating diuresis mobilize fluid. More awake, follows commands however extremely weak and extremities. Remains on TPN. Objective Vital Signs Date Time Temp Pulse Resp B/P (MAP) Pulse Ox O2 Delivery O2 Flow Rate FiO2 09/29/17 12:00 84 09/29/17 12:00 99.0 21 148/59 (88) 100 09/29/17 12:00 30 Intake and Output 09/29/17 09/29/17 09/30/17 08:00 16:00 00:00 Intake Total 0 ml Output Total 1470 ml Balance -1470 ml Result Diagram: 09/29/17 0535 09/29/17 0535 Other Results Microbiology Date/Time Source Procedure Growth Status 09/27/17 11:30 Sputum Endotracheal Gram Stain - Final Complete 09/27/17 11:30 Sputum Endotracheal Sputum Culture - Final RARE GROWTH NORMAL RESPIRATORY MANUEL Complete 09/27/17 12:25 Urine Catheterized Urine Urine Culture - Final NO GROWTH IN 48 HOURS. Complete Imaging Last 48 hours Impressions Chest X-Ray 09/29/17 0000 Signed Impressions: Service Date/Time: Friday, September 29, 2017 11:31 - CONCLUSION: 1. Cardiomegaly with bilateral effusions and interstitial prominence consistent with congestive failure. 2. The tip of the endotracheal tube is not visualized due to technique. If further assessment of this is desired repeat exam could be attempted. 3. Appearance of the parenchyma has worsened compared to prior. Haris Mcfarland MD Objective Remarks GENERAL: morbidly obese, edematous female; encephalopathic SKIN: Warm and dry. HEAD: Normocephalic. EYES: No scleral icterus. No injection or drainage. NECK: Trachea midline. trach site clean. CARDIOVASCULAR: normal rate, regular rhythm. Heart sounds distant. JVD difficult to assess due to body habitus. RESPIRATORY:equal chest rise. PRVC PEEP 10. Clear, decreased in bases. GASTROINTESTINAL: Abdomen soft, tender, distended. Morbidly obese. Some bowel sounds. ROSSI drain in LUQ. MUSCULOSKELETAL: No cyanosis, or edema. Well perfused. 2+ edema, diffuse. NEURO EXAM: Awake, alert, following commands. Pupils are round, reactive to light. Opens eyes spontaneously some. A/P Assessment and Plan Assessment: 61yF s/p gastric bypass complicated by small bowel obstruction, intra-abdominal sepsis, persistent respiratory failure, volume overload. remains off pathway. s/p trach. improving organ systems. needs long-term rehab, likely LTAC. will allow surgery to guide plan for bile leak. for now just control fistula with drain. A/P: NEURO: Seizure disorder Metabolic encephalopathy Hypoactive Delirium - Currently off all sedation - Keppra IV. - hold sedating meds - fentanyl prn for positioning. - haldol for agitation - provigil for wakefulness. RESP: Acute hypoxemic respiratory failure - persistent, stable. ARDS HCAP with E Coli - Continue mechanical ventilation - Vent bundle - DuoNeb every 6 hours scheduled and when necessary - Bilateral pulmonary opacities, fluid overload and acute lung injury/ARDS - Tracheostomy by Dr. Preciado 09/23 - will need slow wean, LTAC appropriate. CVS: Septic shock-resolved. Lactic acidosis - resolved. - s/p Aggressive IV fluid resuscitation, postop received 9 L of normal saline, 2 units of PRBC - s/p hydrocortisone taper. give 1 dose hydrocortisone in case this is rebound adrenal insufficiency - Chest x-ray on 09/29 shows worsening bilateral effusions more on the left. Will initiate diuresis with Lasix 20 mg IV twice a day to mobilize fluid. Repeat chest x-ray ordered for 10/01 GI: Small bowel ischemia/Perforation Peritonitis Bile leak - S/P Laparoscopic SBR for gangrenous small bowel - Post op surgical management per Dr. Epstein general surgery - PO feeding per surgery. - IV Protonix. Started TPN 09/10/17 - ct abd/pelvis with PO contrast showing no abscess 09/19 - ROSSI management per gen surgery. FEN: Hypernatremia Free water deficit Hypokalemia Hypomagnesemia - aggressive electrolyte replacement - Decrease d5w to 40cc/hr for free water replacement - recheck electrolytes on daily bmp : Acute kidney failure - improving. Contraction alkalosis - improving. - ATN most likely from severe septic shock - Maintain [place] for accurate intake output HEME: Anemia secondary to acute blood loss - s/p 2 units of PRBC, transfuse to keep Hb >7.0 - Monitor H&H - Drop in platelet most likely sepsis, now improving. ID: Septic shock - resolved. Peritonitis HCAP with E Coli - Sputum culture E Coli - Blood cultures, urine culture follow up - ID following - continue zosyn. ENDO: Diabetes mellitus Hypocalcemia - Insulin sliding scale, and IV insulin with TPN - Electrolyte replacement per protocol - Continue levemir bid - po synthroid now that gut function improving. DVT GI prophylaxis - Teds SCDs - Pharmacological DVT prophylaxis Lovenox 40 mg subcutaneous every 12- reduced to 40 qd due to worsening creatinine - Protonix Lines: Right IJ line d/c'd 09/20, New left SCV CVL placed 09/20. Change if recurring fever. Overall impression: Continue TPN, control fistula. Improving general condition. Will benefit from LTAC. Attila Fontaine MD Sep 29, 2017 13:14
--- NOTE | 2017-09-29 13:26 | HHI.PR ---
Subjective Subjective Notes Remains clinically the same Objective Vitals/I&O Vital Signs Date Time Temp Pulse Resp B/P (MAP) Pulse Ox O2 Delivery O2 Flow Rate FiO2 09/29/17 12:56 99 30 09/29/17 12:00 84 09/29/17 12:00 99.0 21 148/59 (88) Labs Laboratory Tests Test 09/29/17 05:35 White Blood Count 7.0 Red Blood Count 2.51 Hemoglobin 7.3 Hematocrit 22.4 Mean Corpuscular Volume 89.1 Mean Corpuscular Hemoglobin 28.9 Mean Corpuscular Hemoglobin Concent 32.4 Red Cell Distribution Width 15.7 Platelet Count 297 Mean Platelet Volume 8.2 Blood Urea Nitrogen 86 Creatinine 1.29 Random Glucose 117 Calcium Level 9.1 Phosphorus Level 3.7 Magnesium Level 2.1 Sodium Level 152 Potassium Level 3.2 Chloride Level 118 Carbon Dioxide Level 24.6 Anion Gap 9 Estimat Glomerular Filtration Rate 42 Prealbumin 19 Date/Time Source Procedure Growth Status 09/27/17 14:37 Blood Peripheral Aerobic Blood Culture - Preliminary NO GROWTH IN 2 DAYS Resulted 09/27/17 14:37 Blood Peripheral Anaerobic Blood Culture - Preliminary NO GROWTH IN 2 DAYS Resulted 09/27/17 11:30 Sputum Endotracheal Gram Stain - Final Complete 09/27/17 11:30 Sputum Endotracheal Sputum Culture - Final RARE GROWTH NORMAL RESPIRATORY MANUEL Complete 09/27/17 12:25 Urine Catheterized Urine Urine Culture - Final NO GROWTH IN 48 HOURS. Complete 09/15/17 08:31 Wound Abdomen Gram Stain - Final Complete 09/15/17 08:31 Wound Abdomen Wound Culture - Final NO GROWTH IN 72 HRS.--AEROBICALLY OR ... Complete Radiology Last Impressions Chest X-Ray 09/23/17 0600 Signed Impressions: Service Date/Time: Saturday, September 23, 2017 04:54 - CONCLUSION: No significant change has occurred. Shailesh Bernal MD Head CT 09/19/17 0000 Signed Impressions: Service Date/Time: Tuesday, September 19, 2017 15:54 - CONCLUSION: 1. No evidence of acute intracranial pathology. No masses are identified. 2. Bilateral mastoiditis Jens John MD Chest CT 09/19/17 0000 Signed Impressions: Service Date/Time: Tuesday, September 19, 2017 15:59 - CONCLUSION: 1. Multifocal areas of consolidation greatest in right lower lobe most characteristic of pneumonia. 2. Abnormal soft tissue density in the right axilla contiguous with abnormal soft tissue density and inflammatory change extending along the right lateral chest wall. This could represent hemorrhage and/or inflammatory change. There are no gas bubbles are infection cannot be excluded. 3. There is fluid again noted in the upper abdomen. 4. Moderate elevation of the right hemidiaphragm. Yuri Holt MD Abdomen/Pelvis CT 09/19/17 0000 Signed Impressions: Service Date/Time: Tuesday, September 19, 2017 15:59 - CONCLUSION: 1. There is no evidence of abscess. 2. Mild ascites Jens John MD Abdomen Fluoroscopy 09/08/17 0000 Signed Impressions: Service Date/Time: Friday, September 08, 2017 12:04 - CONCLUSION: Uncomplicated nasogastric tube placement as above. Tae Archuleta Jr., MD Cardiovascular: Regular Lungs: Rhonchi Abdomen: Other (intermittent bowel sounds LUQ and LLQ) Wound Wound : Wound Location: Abdomen (surgical incisions have begun to dehisce to LLQ and RLQ. ROSSI continues with bileous drainage) A/P Assessment and Plan 61yo F with small bowel perforation and peritonitis -Monitor surgical incisions, continue with iodoform packing -Continue vent weaning as appropriate -Continue TPN D/W Flower Donaldson Sep 29, 2017 13:26
[2017-09-29] MEDS: FUROSEMIDE 20 MG/2 ML VIAL IV PUSH SCH ×2 (13:53→17:48)
[2017-09-29] MEDS: ENOXAPARIN SODIUM 60 MG/0.6 ML SYRINGE SQ SCH (18:51)
[2017-09-29] MEDS: MULTIVITAMIN INJ 10 ML, FOLIC ACID INJ 1 MG, INSULIN HUMAN REGULAR INJ 40 UNITS in AMIN... IV-CENTRAL SCH (20:31)
[2017-09-30] VITALS (38 sets, daily range): BP systolic 83–132; BP diastolic 48–67; PULSE 88–112; RESP 20–37; TEMP 98.5–100.6; O2SAT 97–100
[2017-09-30] MEDS: ENOXAPARIN SODIUM 60 MG/0.6 ML SYRINGE SQ SCH (00:09)
[2017-09-30 00:59] LABS: REVIEW FLAG FINAL
[2017-09-30 01:01] LABS: HEMATOCRIT 17.7 % (35.0-46.0)
[2017-09-30 04:44] LABS: MEAN CELL VOLUME 89.7 FL (80.0-100.0); MEAN CORPUSCULAR HEMOGLOBIN 29.7 PG (27.0-34.0); MEAN CORPUSCULAR HGB CONC 33.1 % (32.0-36.0); PLATELET COUNT 334 TH/MM3 (150-450); RED BLOOD COUNT 1.93 MIL/MM3 (4.00-5.30); RED CELL DISTRIBUTION WIDTH 16.2 % (11.6-17.2); WHITE BLOOD COUNT 12.3 TH/MM3 (4.0-11.0)
[2017-09-30 04:48] LABS: REVIEW FLAG FINAL
[2017-09-30 04:50] LABS: HEMATOCRIT 17.3 % (35.0-46.0)
[2017-09-30 05:00] LABS: APTT (PATIENT) 25.2 SEC (24.3-30.1); INTERNATIONAL NORMALIZED RATIO 1.2 RATIO; PROTHROMBIN TIME - PATIENT 11.7 SEC (9.8-11.6)
[2017-09-30 05:05] LABS: BICARBONATE 21.9 MEQ/L (21.0-32.0)
[2017-09-30 05:07] LABS: POTASSIUM 4.2 MEQ/L (3.5-5.1)
[2017-09-30] MEDS: LEVOTHYROXINE SODIUM 50 MCG TAB PO SCH (06:00)
[2017-09-30] MEDS: PIPERACIL-TAZO 3.375 GM PREMIX 50 ML IV SCH ×5 (06:00→23:02)
[2017-09-30] MEDS: INSULIN ASPART SUPPLEMENTAL SCALE SQ SCH ×4 (06:00→17:50)
[2017-09-30] MEDS: ALBUMIN 25% INJ 100 ML IV SCH ×4 (08:00→23:03)
[2017-09-30] MEDS: CHLORHEXIDINE 0.12% (ORAL KIT) 15 ML CUP MT SCH ×2 (08:00→22:23)
--- NOTE | 2017-09-30 08:17 | HHI.CCPN ---
Subjective Remarks/Hospital Course Note for 09/28/17: 61-year-old morbidly obese female presents, patient of Dr. Epstein, status post gastric sleeve 08-22-17 now presents with nonbloody emesis and unable to have a bowel movement for a couple days. She states to get that bowel movement she had a use a glycerin suppository and it was just loose. He was taken emergently to operating room and was found to have a small bowel ischemia. She underwent laparoscopic small bowel resection by Dr. Epstein and is postoperatively admitted to critical care unit SUBJ 09/09/17: Remains very critically ill. Profound septic shock requiring Levophed at 40 mcg/m, Des-Synephrine at 500 mcg/m, vasopressin at 0.04 international units, and to be demand 5 g per KG per minute. Urine output 150 mL overnight. Maintaining oxygen saturation. A.m. labs are pending at this time. Surprisingly patient is still mentating able to communicate. Remains on IV fentanyl infusion for pain control. Operative report is pending at this time. Received total of 9 L of crystalloid postoperatively. Receiving 2 units of PRBC. I will replace calcium. Lactic acid 3.5 at 4 AM 09/10: Critically ill but stable. Levophed down to 12 mcg/min, vasopressin at 0.04 IU. Uo 650 ml in 24 hours, bilateral abdominal drains with 1 L output. Right drain had greenish output overnight and now serosanguineous. D/ W Dr Epstein- he confirms perforation and gross contamination 09/11: Remains critically. FiO2 requirement up to 60%, I have increased PEEP to 10. CXR consistent with ARDS versus fluid overload. Creatinine increased to 1.24. Urine output 600 ml in 24 hours. CVP 18-20. Start IV Bumex 1 mg every 12 hours with additional 1 mg dose now. Levophed at 1 mcg/min, vasopressin at 0.04 IU 09/12: remains critically ill but stable to improving. SBP 130-140 on vasopressin will DC vasopressin. Chest x-ray shows bilateral pulmonary edema, but oxygenation has improved. Stable on 50% and PEEP of 10. Creatinine has worsened to 1.67 but urine output 1.5 L in 24 hours with Bumex. CVP remains about 20. Will increase Bumex to 1 mg every 8 hours and give additional 1 mg now. Closely monitor creatinine. 09/13: Weaning off vasopressors. SHEA persists. CXR with diffuse infiltrates , will switch modes for better recruitment hopefully. 09/14: Gas exchange improved on APRV. Renal function deteriorating. Remains fluid overloaded. 09/15: Gas exchange improved but renal function continues to deteriorate. Continue APRV - bases struggle for domain. 09/16: remains fairly encephalopathic, likely hypoactive delirium. renal function still worse today, although ? peaked?. continue APRV: body habitus would make de-recruitment almost certain if we switch to conventional mode of ventilation. still diuresing well. 09/17: creatinine continues to worsen despite adequate diuresis. BP lower today. will hold lasix drip. off all sedation x 12h and still remains encephalopathic, not following commands. may need renal replacement therapy at some point. severe electrolyte derrangements due to diuresis, and free water deficit. 09/18: Cr slightly downtrended. mental status still poor. long discussion with family and multiple members updated. remains off sedation. continuing to hold diuresis. 09/19: Cr still slightly downtrended. surgery concerned possible tube feeds in ROSSI drain after starting trickle TF yesterday. also, patient had more labored breathing on vent. etco2 70s, worsening hypercarbia and peak pressures. changed vent modes temporarily, increased minute ventilation, improved pco2, but then patient became acutely hypotensive. stat CXR ordered. clinically worse today. in addition, still no improvements in mental status. CT abd/pelvis with PO contrast ordered as well as CT brain. 09/20: CXR clear, will convert back to spontaneous ventilation to avoid CO2 retention. Marked azotemia, likely contributing to obtundation. BUN > 130. 09/21: Oxygenation remains improved. Peripheral edema resolving. Azotemia persists. BUN > 140 today. 09/22: Slightly improving enough renal functions. H&H critical, no signs of active bleeding, more likely iatrogenic due to frequent blood draws and dilutional. 09/23: s/p trach in OR today. hgb improved. renal function improving. organs are stable enough for transfer to LTAC. needs slow wean with lots of pulmonary rehab. 09/24: still putting out 300cc/24h out of right ROSSI, with bile. mental status improving, slowly. 09/25: Improved neurological function. Controlled fistula. 09/26: Remains on mechanical ventilation via tracheostomy. Daily C Pap trials ongoing. On TPN. 09/27: No leukocytosis and fistula appears well controlled. LTAC will be good transfer for ongoing vent weaning. 09/28: Low grade fever but no leukocytosis. Stable hemodynamics. Abdomen benign. All cultures NG. 09/29: Tolerating C Pap trials. Chest x-ray shows bilateral effusions. Initiating diuresis mobilize fluid. More awake, follows commands however extremely weak and extremities. Remains on TPN. Subjective: 09/30 Bleeding noted in ROSSI overnight, Hgb 5.7. Three units PRBC ordered and 1 unit infusing when am labs drawn in which Hgb was 5.7. Currently receiving 3rd unit of PRBC. Dr. Hernandez updated overnight. Now ROSSI no longer having output, obtaining CT abd/pelvis. Tachypneic, tachycardic in 108, BP 96/53. No BM. Objective Vital Signs Date Time Temp Pulse Resp B/P (MAP) Pulse Ox O2 Delivery O2 Flow Rate FiO2 09/30/17 08:15 99.0 106 31 96/53 100 09/30/17 04:17 30 Intake and Output 09/30/17 09/30/17 10/01/17 08:00 16:00 00:00 Intake Total 720 ml 550 ml Output Total 1660 ml Balance -940 ml 550 ml Result Diagram: 09/30/17 0430 09/30/17 0430 Other Results Microbiology Date/Time Source Procedure Growth Status 09/27/17 11:30 Sputum Endotracheal Gram Stain - Final Complete 09/27/17 11:30 Sputum Endotracheal Sputum Culture - Final RARE GROWTH NORMAL RESPIRATORY MANUEL Complete 09/27/17 12:25 Urine Catheterized Urine Urine Culture - Final NO GROWTH IN 48 HOURS. Complete Imaging Last 48 hours Impressions Chest X-Ray 09/29/17 0000 Signed Impressions: Service Date/Time: Friday, September 29, 2017 11:31 - CONCLUSION: 1. Cardiomegaly with bilateral effusions and interstitial prominence consistent with congestive failure. 2. The tip of the endotracheal tube is not visualized due to technique. If further assessment of this is desired repeat exam could be attempted. 3. Appearance of the parenchyma has worsened compared to prior. Haris Mcfarland MD Objective Remarks GENERAL: morbidly obese, pale and critically ill appearing female SKIN: Dry, mottled appearing bilat lower extremities. . There are serous blisters in right lower abdomen. HEAD: Normocephalic. EYES: Pupils 2 mm and sluggishly reactive. Anicteric. Pale conjunctiva NECK: Trachea midline. Proximal XL T trach in place, no exudate or bleeding CARDIOVASCULAR: Tachycardic, regular, sinus tach on the monitor. Heart sounds distant. No murmur rub or gallop appreciated. JVD difficult to assess due to body habitus. RESPIRATORY: Tachypneic, equal breath sounds bilaterally, scattered rhonchi. PRVC PEEP 10. GASTROINTESTINAL: Abdomen distended, obese, abdominal wall edema/anasarca present with significant dependent edema RLQ. ROSSI in RLQ with bloody output and clots. Bag in place around ROSSI site, no drainage currently (reportedly previously bilious appearing drainage). MUSCULOSKELETAL: No cyanosis. 2+ edema, diffuse. NEURO EXAM: Eyes open some spontaneously , makes eye contact and has very slight nod to voice. . Pupils as per above. Very weak movement of fingers and toes to noxious stimuli. A/P Assessment and Plan Assessment: 61yF s/p gastric bypass complicated by small bowel obstruction, intra-abdominal sepsis, persistent respiratory failure, volume overload. remains off pathway. s/p trach. Now with acute blood loss anemia, bleeding from ROSSI. A/P: NEURO: Seizure disorder Metabolic encephalopathy Hypoactive Delirium - Currently off all sedation - Keppra 500 IV q12. - fentanyl prn for positioning. - haldol for agitation -has been on provigil for wakefulness. RESP: Acute hypoxemic respiratory failure - persistent, stable. ARDS HCAP with E Coli - Continue mechanical ventilation - Vent bundle - DuoNeb every 6 hours scheduled and when necessary - CXR 09/29 - Bilateral effusions, bilateral perihilar opacities. - Tracheostomy by Dr. Preciado 09/23 -Slow vent weaning, will eventually need LTAC when stabilized. CVS: Septic shock-resolved. Lactic acidosis - resolved. Recurrent Hypotension, secondary to acute blood loss - s/p Aggressive IV fluid resuscitation, postop received 9 L of normal saline, 2 units of PRBC - s/p hydrocortisone taper completed 09/18. - Diuresis with lasix initiated 09/29. Will hold currently due to active bleeding, will use intermittently following transfusion when intravascularly resuscitated. GI: Small bowel ischemia/Perforation Peritonitis Bile leak Bleeding - S/P Laparoscopic SBR for gangrenous small bowel - Post op surgical management per Dr. pEstein general surgery - Nepro trickle feeds on hold, diet management per general surgery. - IV Protonix. Started TPN 09/10/17 - ct abd/pelvis with PO contrast showing no abscess 09/19 - ROSSI management per gen surgery. FEN: Hypernatremia Free water deficit Hypokalemia Hypomagnesemia - electrolyte replacement as needed. - TPN 75 ml/hr. D5W 42 ml/hr - Daily BMP : Acute kidney failure - improving. Contraction alkalosis - improving. - ATN most likely from severe septic shock. Had been improving, uptrend this morning. - Maintain Bedolla for accurate intake output HEME: Anemia secondary to acute blood loss - Platelet count normal. INR 1.2 - Hgb 5.7. Transfusing 3 units PRBC and will monitor Hgb q6 hours. 2 units FFP on hold. Was on Lovenox 60 q12 since 09/26. Now on hold. ID: Septic shock - resolved. Peritonitis HCAP with E Coli - resolved Leukocytosis. - Sputum culture 09/08 E Coli - Blood cultures, urine culture from 09/27 negative. - ID following, Dr. Enriquez. - Continue Zosyn. Temp max 100.3 overnight. Panculture. Broaden abx if clinical worsening/eo infection. ENDO: Diabetes mellitus Hypocalcemia - Insulin sliding scale, and IV insulin with TPN - Electrolyte replacement per protocol - Continue levemir 18 units subcut bid - po synthroid now that gut function improving. DVT GI prophylaxis - Teds SCDs - Pharmacological DVT prophylaxis - Protonix Lines: Right IJ line d/c'd 09/20, New left SCV CVL placed 09/20 #11. Replace if recurring fever. Discussed with Dr. Hernandez, obtained CT abd/pelvis. Patient is critically ill with active bleeding and acute symptomatic blood loss anemia. She is tachycardic and tachypneic with hypotension on mechanical ventilation. Currently hypotension is responsive to transfusion. She is at high risk for further deterioration. Dr. Hernandez and I met with patient's after CT resulted. ROSSI drain is no longer draining and there is large hematoma present, clinically appears to have ongoing bleeding. Dr. Hernandez offered ex lap to however discussed that with patients current debility and poor healing potential her prognosis is poor. opted against surgery at this time, continuing medical management. desires full code at this time. CCT 55 minutes exclusive of separately billable procedures. Yanely Hair MD Sep 30, 2017 08:17
[2017-09-30] MEDS: MODAFINIL 200 MG TAB PO SCH (09:00)
[2017-09-30] MEDS: ARTIFICIAL TEARS OPTH SOLN 15 ML BTL EACH EYE SCH ×3 (09:00→17:49)
[2017-09-30] MEDS ORDERED: DEXT 5%-NACL 0.9% 1000 ML INJ 1,000 ML IV SCH (09:00)
[2017-09-30] MEDS: SODIUM CHLORIDE 0.9% FLUSH 10 ML FLUSH IV FLUSH SCH ×2 (09:00→21:00)
[2017-09-30 09:44] LABS: BLOOD GAS BASE EXCESS -3.6 mmol/L (-2-2); BLOOD GAS CARBOXYHEMOGLOBIN 2.1 % (0-4); BLOOD GAS HCO3 20 mmol/L (22-26); BLOOD GAS METHEMOGLOBIN 1.2 % (0-2); BLOOD GAS O2 HGB SATURATION 96 % (90-100); BLOOD GAS OXYGEN CONTENT 9.6 Vol % (12.0-20.0); BLOOD GAS PCO2 27 mmHg (38-42); BLOOD GAS PO2 115 mmHg (61-120); BLOOD GAS TOTAL HGB 6.9 G/DL (12.0-16.0); CRITICAL VALUE YES; DRAW SITE RT BRACHIAL; FIO2 30 %; OXYGEN DEVICE VENTILATOR; TEMP CORR TO 98.6; VENT SETTINGS SEE COMMENTS
[2017-09-30 09:45] LABS: NUMBER OF ARTERIAL PUNCTURES 1; STAT NO
[2017-09-30] MEDS: PANTOPRAZOLE SODIUM 40 MG VIAL IV PUSH SCH (09:49)
[2017-09-30] MEDS: levETIRAcetam INJ 500 MG in SODIUM CHLORIDE 0.9% INJ 100 ML IV SCH ×2 (09:49→22:22)
[2017-09-30] MEDS: INSULIN DETEMIR 100 UNITS/ML VIAL SQ SCH ×2 (09:50→21:00)
[2017-09-30] MEDS: DEXTROSE 5% IN WATE 1000ML INJ 1,000 ML IV SCH (10:00)
[2017-09-30] MEDS ORDERED: DIATRIZOATE MEGLUM/DIATRIZOATE SOD 9 ML CUP PO ONE (10:30)
--- NOTE | 2017-09-30 11:23 | HHI.IDPN ---
Note Infectious Disease Note Patient is awake and alert. Following commands. Afebrile. Noted to have bloody drainage from the abdominal drainage catheter. Hemoglobin decreased. Presented to the emergency department on September 07 and was diagnosed with small bowel obstruction. She was taken to surgery and was found to have necrosed, perforated small bowel and she underwent small bowel resection. The patient previously had elective gastric sleeve on 08/22/2017. After that she was having nausea and vomiting and then difficulty passing stools. During the surgical procedure the patient had some purulent material within the abdomen. PAST MEDICAL HISTORY 1. Rheumatoid arthritis 2. Hypothyroidism 3. Gout 4. Depression 5. Seizure disorder 6. Attention deficit disorder 7. Cholecystectomy 8. Tonsillectomy 9. Ankle arthroplasty 10. Gastric sleeve. 08/22/17. ALLERGIES PROPOXYPHENE DARVOCET ADHESIVE TAPES ANTIBIOTICS Zosyn. Current Medications Medications (Trade) Dose Ordered Sig/Daniel Route PRN Reason Start Time Stop Time Status Last Admin Dose Admin Pantoprazole Sodium (Protonix Inj) 40 mg DAILY IV PUSH 09/08/17 09:00 09/30/17 09:49 Sodium Chloride (NS Flush) 2 ml UNSCH PRN IV FLUSH FLUSH AFTER USING IV ACCESS 09/08/17 19:15 Sodium Chloride (NS Flush) 2 ml BID IV FLUSH 09/08/17 21:00 09/30/17 09:00 Ondansetron HCl (Zofran Inj) 4 mg Q4H PRN IV PUSH NAUSEA OR VOMITING 09/08/17 19:15 09/08/17 20:00 Levetriacetam 500 mg/Sodium Chloride 105 ml @ 420 mls/hr Q12HR IV 09/09/17 09:00 09/30/17 09:49 Albumin Human 100 ml @ 60 mls/hr Q8H IV 09/09/17 08:00 09/30/17 08:00 Multivitamins 10 ml/Folic Acid 1 mg/Insulin Human Regular 40 units/ Amino Acids/ Electrolytes/ Dextrose 2,010.6 ml @ 75 mls/hr Q24H IV-CENTRAL 09/11/17 20:00 09/29/17 20:31 Albuterol/ Ipratropium (Duoneb Neb) 1 ampule Q2HR NEB PRN NEB SHORTNESS OF BREATH 09/12/17 14:00 09/21/17 08:45 Dextrose (D50w (Vial) Inj) 50 ml UNSCH PRN IV PUSH HYPOGLYCEMIA-SEE COMMENTS 09/13/17 12:30 Glucagon (Glucagon Inj) 1 mg UNSCH PRN OTHER HYPOGLYCEMIA-SEE COMMENTS 09/13/17 12:30 Insulin Aspart (NovoLOG SUPPLEMENTAL SCALE) 1 Q6HR SQ 09/13/17 12:30 09/30/17 06:00 Chlorhexidine Gluconate (Peridex 0.12% Liq) 15 ml BID@08,20 MT 09/13/17 20:00 09/30/17 08:00 Haloperidol Lactate (Haldol Inj) 5 mg Q4H PRN IV PUSH agitation 09/16/17 15:45 09/30/17 00:21 Fentanyl Citrate (fentaNYL INJ) 50 mcg Q1H PRN IV PUSH pain 8-10 if not taking po 09/16/17 15:45 09/30/17 01:15 Modafinil (Provigil) 200 mg DAILY PO 09/17/17 09:00 09/29/17 08:26 Artificial Tears (Tears Naturale Opth Soln) 1 drop TID EACH EYE 09/16/17 20:00 09/30/17 09:00 Hydralazine HCl (Apresoline Inj) 20 mg Q4H PRN IV PUSH SBP>160, DBP>90 09/18/17 23:45 09/28/17 09:41 Labetalol HCl (Trandate Inj) 10 mg Q4H PRN IV PUSH SBP>160, DBP>90 09/18/17 23:45 09/26/17 19:08 Insulin Detemir (Levemir Inj) 18 units Q12HR SQ 09/20/17 21:00 09/30/17 09:50 Levothyroxine Sodium (Synthroid) 50 mcg DAILY@0600 PO 09/24/17 06:00 09/30/17 06:00 Potassium Chloride 100 ml @ 50 mls/hr Q2H PRN IV For Potassium 2.8 - 3.2 mEq/L 09/27/17 11:00 09/28/17 04:02 Potassium Chloride 100 ml @ 50 mls/hr Q2H PRN IV For Potassium 2.8 - 3.2 mEq/L 09/27/17 11:00 Potassium Bicarb/ Potassium Chloride (K-Lyte Cl Eff) 50 meq UNSCH PRN PO For Potassium 3.3 - 3.5 mEq/L 09/27/17 11:00 Potassium Chloride 100 ml @ 25 mls/hr UNSCH PRN IV For Potassium 3.3 - 3.5 mEq/L 09/27/17 11:00 Potassium Chloride 100 ml @ 50 mls/hr Q2H PRN IV For Potassium 3.3 - 3.5 mEq/L 09/27/17 11:00 Magnesium Sulfate 4 gm/Sodium Chloride 100 ml @ 50 mls/hr UNSCH PRN IV For Magnesium 0.9 - 1.1 mg/dL 09/27/17 11:00 Magnesium Oxide (Mag-Ox) 800 mg UNSCH PRN PO For Magnesium 1.2 - 1.6 mg/dL 09/27/17 11:00 Magnesium Sulfate 2 gm/Sodium Chloride 100 ml @ 50 mls/hr UNSCH PRN IV For Magnesium 1.2 - 1.6 mg/dL 09/27/17 11:00 Potassium Phosphate (K-Phos) 2,000 mg Q4H PRN PO For Phosphorus < 2.5 mg/dL 09/27/17 11:00 Sodium Phosphate 30 mmol/Sodium Chloride 250 ml @ 42 mls/hr UNSCH PRN IV For Phosphorus < 2.5 mg/dL 09/27/17 11:00 Potassium Phosphate (K-Phos) 2,000 mg UNSCH PRN PO/TUBE SEE LABEL COMMENTS 09/27/17 11:00 Potassium Phosphate 30 mmol/ Sodium Chloride 260 ml @ 42 mls/hr UNSCH PRN IV SEE LABEL COMMENTS 09/27/17 11:00 Piperacillin Sod/ Tazobactam Sod 50 ml @ 100 mls/hr Q6H IV 09/27/17 18:00 09/30/17 06:00 Dextrose 1,000 ml @ 42 mls/hr [id number] IV 09/30/17 10:00 09/30/17 10:00 OBJECTIVE: Vital Signs Date Time Temp Pulse Resp B/P (MAP) Pulse Ox O2 Delivery O2 Flow Rate FiO2 09/30/17 10:00 100.0 106 34 97/52 100 09/30/17 10:00 108 09/30/17 08:36 100 30 09/30/17 08:30 99.3 108 33 106/55 100 09/30/17 08:15 99.0 106 31 96/53 100 09/30/17 08:09 99.0 108 33 85/50 100 09/30/17 08:00 30 09/30/17 08:00 99.1 108 32 85/50 (62) 100 Arterial Line 09/30/17 08:00 107 09/30/17 06:30 108 09/30/17 05:59 99.0 108 32 83/60 100 09/30/17 05:36 99.0 107 31 97/58 100 09/30/17 05:32 100.3 107 32 97/58 100 09/30/17 04:17 100 30 09/30/17 04:00 30 09/30/17 04:00 98.7 108 29 110/67 (81) 100 09/30/17 04:00 99 09/30/17 03:01 98.7 93 33 122/59 100 09/30/17 02:30 98.5 97 27 127/62 98 09/30/17 02:07 99.1 98 31 122/62 100 09/30/17 02:00 94 09/30/17 00:41 99 30 09/30/17 00:00 99.2 92 20 132/60 (84) 99 09/30/17 00:00 30 09/30/17 00:00 92 09/29/17 22:02 76 09/29/17 21:47 100 30 09/29/17 20:00 99.0 74 27 150/70 (96) 100 09/29/17 20:00 69 09/29/17 20:00 30 09/29/17 18:00 76 09/29/17 17:35 98 30 09/29/17 16:22 99 30 09/29/17 16:00 30 09/29/17 16:00 88 09/29/17 16:00 99.1 88 34 149/68 (95) 99 09/29/17 15:00 30 09/29/17 14:00 87 09/29/17 12:56 99 30 09/29/17 12:00 84 09/29/17 12:00 99.0 84 21 148/59 (88) 100 09/29/17 12:00 30 Laboratory Tests Test 09/29/17 05:35 09/30/17 00:45 09/30/17 04:30 White Blood Count 7.0 TH/MM3 12.3 TH/MM3 Red Blood Count 2.51 MIL/MM3 1.93 MIL/MM3 Hemoglobin 7.3 GM/DL 5.7 GM/DL 5.7 GM/DL Hematocrit 22.4 % 17.7 % 17.3 % Mean Corpuscular Volume 89.1 FL 89.7 FL Mean Corpuscular Hemoglobin 28.9 PG 29.7 PG Mean Corpuscular Hemoglobin Concent 32.4 % 33.1 % Red Cell Distribution Width 15.7 % 16.2 % Platelet Count 297 TH/MM3 334 TH/MM3 Mean Platelet Volume 8.2 FL 9.1 FL Laboratory Tests Test 09/29/17 05:35 09/29/17 20:10 09/30/17 04:30 Blood Urea Nitrogen 86 MG/DL 93 MG/DL Creatinine 1.29 MG/DL 1.49 MG/DL Random Glucose 117 MG/DL 176 MG/DL Calcium Level 9.1 MG/DL 8.6 MG/DL Phosphorus Level 3.7 MG/DL Magnesium Level 2.1 MG/DL Sodium Level 152 MEQ/L 150 MEQ/L Potassium Level 3.2 MEQ/L 3.5 MEQ/L 4.2 MEQ/L Chloride Level 118 MEQ/L 117 MEQ/L Carbon Dioxide Level 24.6 MEQ/L 21.9 MEQ/L Anion Gap 9 MEQ/L 11 MEQ/L Estimat Glomerular Filtration Rate 42 ML/MIN 36 ML/MIN Prealbumin 19 MG/DL Microbiology Date/Time Source Procedure Growth Status 09/27/17 14:37 Blood Peripheral Aerobic Blood Culture - Preliminary NO GROWTH IN 1 DAY Resulted 09/27/17 14:37 Blood Peripheral Anaerobic Blood Culture - Preliminary NO GROWTH IN 1 DAY Resulted 09/27/17 14:32 Blood Peripheral Aerobic Blood Culture - Preliminary NO GROWTH IN 1 DAY Resulted 09/27/17 14:32 Blood Peripheral Anaerobic Blood Culture - Preliminary NO GROWTH IN 1 DAY Resulted 09/27/17 11:30 Sputum Endotracheal Gram Stain - Final Resulted 09/27/17 11:30 Sputum Endotracheal Sputum Culture - Preliminary NO GROWTH IN 24 HOURS. Resulted 09/27/17 12:25 Urine Catheterized Urine Urine Culture - Preliminary NO GROWTH IN 24 HOURS. Resulted IMAGING: Chest X-Ray 09/29/17 0000 Signed Impressions: Service Date/Time: Friday, September 29, 2017 11:31 - CONCLUSION: 1. Cardiomegaly with bilateral effusions and interstitial prominence consistent with congestive failure. 2. The tip of the endotracheal tube is not visualized due to technique. If further assessment of this is desired repeat exam could be attempted. 3. Appearance of the parenchyma has worsened compared to prior. Haris Mcfarland MD Chest X-Ray 09/23/17 0600 Signed Impressions: Service Date/Time: Saturday, September 23, 2017 04:54 - CONCLUSION: No significant change has occurred. Shailesh Bernal MD Chest X-Ray 09/20/17 0000 Signed Impressions: Service Date/Time: Wednesday, September 20, 2017 17:46 - CONCLUSION: 1. No pneumothorax status post placement of left subclavian central line which has its tip in the superior vena cava. 2. Stable bibasilar patchiness. 3. Stable cardiomegaly. Darion Oates MD Chest X-Ray 09/19/17 0400 Signed Impressions: Service Date/Time: Tuesday, September 19, 2017 04:10 - CONCLUSION: 1. Interval improvement in bilateral pulmonary infiltrates. 2. The patient remains intubated. Yuri Holt MD Head CT 09/19/17 0000 Signed Impressions: Service Date/Time: Tuesday, September 19, 2017 15:54 - CONCLUSION: 1. No evidence of acute intracranial pathology. No masses are identified. 2. Bilateral mastoiditis Jens John MD Chest X-Ray 09/19/17 0000 Signed Impressions: Service Date/Time: Tuesday, September 19, 2017 09:44 - CONCLUSION: Increasing bibasilar parenchymal changes worse on the right. Raghu Mcfarland MD FACR Chest CT 09/19/17 0000 Signed Impressions: Service Date/Time: Tuesday, September 19, 2017 15:59 - CONCLUSION: 1. Multifocal areas of consolidation greatest in right lower lobe most characteristic of pneumonia. 2. Abnormal soft tissue density in the right axilla contiguous with abnormal soft tissue density and inflammatory change extending along the right lateral chest wall. This could represent hemorrhage and/or inflammatory change. There are no gas bubbles are infection cannot be excluded. 3. There is fluid again noted in the upper abdomen. 4. Moderate elevation of the right hemidiaphragm. Yuri Holt MD Abdomen/Pelvis CT 09/19/17 0000 Signed Impressions: Service Date/Time: Tuesday, September 19, 2017 15:59 - CONCLUSION: 1. There is no evidence of abscess. 2. Mild ascites Jens John MD PHYSICAL EXAM: GENERAL: No acute distress. HEENT: Head atraumatic, No icterus. NECK: Supple. No adenopathy. LUNGS: Bibasilar rhonchi. CARDIAC: Regular rate and rhythm. no murmurs, rubs or gallops. ABDOMEN: Obese. Soft. No tenderness appreciated. R. Arnie drain has bloody drainage. EXTREMITIES: No clubbing, cyanosis. 1+ edema at the feet. NEURO: Awake and alert. SKIN: No rash. IMPRESSION 1. Septic shock. 2. Post exploratory laparotomy and small bowel resection along with lysis of adhesions for small bowel perforation. 3. Peritonitis due to due to small bowel perforation. 4. Acute respiratory failure. Now has tracheostomy. 5. VAP gram negative. E. coli. 6. Acute kidney disease. ? sepsis related. ? medication. 7. Leukocytosis. WBC now normal. 8. Mastoiditis on CT scan. 9. Abnormal CXR. RECOMMENDATIONS 1. Continue Zosyn 2. Avoid nephrotoxic meds. 3. Monitor blood and urine and sputum culture. 4. Monitor temp. Jus Enriquez MD Sep 30, 2017 11:23
[2017-09-30 11:24] LABS: BACTERIA, URINE OCC /hpf; BLOOD, URINE SMALL (NEG); GLUCOSE,URINE NEG (NEG); GRANULAR CAST, URINE 4 /lpf; KETONE, URINE NEG (NEG); MUCUS URINE FEW /lpf (OCC); NITRITE,URINE NEG (NEG); SQUAMOUS EPITHELIAL CELL URINE 4 /hpf (0-5); TRANSITIONAL EPI CELLS, URINE 1 /hpf; URINE COLOR YELLOW (YELLW/STRAW)
[2017-09-30 11:26] LABS: COMMENT (UR) CATH-CULTURE IND; CULTURE IF INDICATED CATH CULTURE IND
--- NOTE | 2017-09-30 12:38 | RADRPT ---
EXAM DATE/TIME: 09/30/2017 11:53 [facility] COMPARISON: CT ABDOMEN & PELVIS W CONTRAST, September 07, 2017, 12:20. CT ABDOMEN & PELVIS W/O CONTRAST, September 19, 2017, 15:59. INDICATIONS : Perforation. ORAL CONTRAST: No oral contrast ingested. RADIATION DOSE: 44.15 CTDIvol (mGy) ; Patient body habitus MEDICAL HISTORY : Seizures. SURGICAL HISTORY : Gastric bypass. Cholecystectomy. ENCOUNTER: Initial ACUITY: 1 day PAIN SCALE: Non-responsive LOCATION: lower quadrant TECHNIQUE: Volumetric scanning of the abdomen and pelvis was performed. Using automated exposure control and ad justment of the mA and/or kV according to patient size, radiation dose was kept as low as reasonably achievable to obtain optimal diagnostic quality images. DICOM format image data is available electro nically for review and comparison. FINDINGS: There is evidence of a complex mesenteric collection which contains high and low density fluid as wel l as scattered air bubbles measuring 14.5 x 8.8 x 12.0 cm. This likely represents a wall-off perforat ion with possible formation of abscess. Clinical correlation is recommended. There is a moderate amou nt of ascites within the upper abdomen. There are several mildly dilated loops of small bowel raising possibility of partial small bowel obstruction. Clinical correlation is recommended. Uncomplicated c olonic diverticulosis is noted. A peritoneal catheter is noted within the right lower quadrant. The u terus is unremarkable. Anasarca is noted throughout the abdominal wall. Degenerative changes and scol iosis of the thoraco-lumbar spine are noted. A small left pleural effusion is noted. Bibasilar atelec tasis is noted. CONCLUSION: 1. There is a complex mesenteric collection containing high and low density fluid as well as scattere d air bubbles in or 14.5 x 8.8 x 12.0 cm. This likely represents a walled-off perforation with possib le formation of abscess. Clinical correlation is recommended. 2. Several mildly dilated loops of small bowel raising the possibility of partial small bowel tractio n. Clinical correlation is recommended. 3. Moderate amount of ascites within the upper abdomen. 4. Uncomplicated colonic diverticulosis. 5. Small left pleural effusion. 6. Bibasilar atelectasis. 7. Anasarca throughout the abdominal wall. Darion Oates MD on September 30, 2017 at 12:22 Board Certified Radiologist. This report was verified electronically.
[2017-09-30] MEDS ORDERED: Vancomycin Consult Pharmacy 1 EA OTHER SCH (12:45)
[2017-09-30 13:36] LABS: REVIEW FLAG FINAL
[2017-09-30] MEDS: MICAFUNGIN INJ 100 MG in SODIUM CHLORIDE 0.9% INJ 100 ML IV SCH (13:38)
[2017-09-30 13:44] LABS: APTT (PATIENT) 24.5 SEC (24.3-30.1); PROTHROMBIN TIME - PATIENT 11.8 SEC (9.8-11.6)
[2017-09-30 13:45] LABS: INTERNATIONAL NORMALIZED RATIO 1.2 RATIO
[2017-09-30] MEDS ORDERED: SODIUM CHLOR 0.9% 250 ML INJ 250 ML IV ONE ×3 (14:00)
[2017-09-30] MEDS: VANCOMYCIN INJ 2,500 MG in SODIUM CHLORID 0.9% 500 ML INJ 500 ML IV SCH (16:30)
--- NOTE | 2017-09-30 19:04 | HHI.PR ---
Subjective Subjective Notes last evening events noted no out put from david Objective Vitals/I&O Vital Signs Date Time Temp Pulse Resp B/P (MAP) Pulse Ox O2 Delivery O2 Flow Rate FiO2 09/30/17 18:41 100.1 104 36 117/56 100 09/30/17 16:13 30 Labs Laboratory Tests Test 09/29/17 20:10 09/30/17 00:45 09/30/17 04:30 09/30/17 09:33 Potassium Level 3.5 4.2 Hemoglobin 5.7 5.7 Hematocrit 17.7 17.3 White Blood Count 12.3 Red Blood Count 1.93 Mean Corpuscular Volume 89.7 Mean Corpuscular Hemoglobin 29.7 Mean Corpuscular Hemoglobin Concent 33.1 Red Cell Distribution Width 16.2 Platelet Count 334 Mean Platelet Volume 9.1 Prothrombin Time 11.7 Prothromb Time International Ratio 1.2 Activated Partial Thromboplast Time 25.2 Blood Urea Nitrogen 93 Creatinine 1.49 Random Glucose 176 Calcium Level 8.6 Sodium Level 150 Chloride Level 117 Carbon Dioxide Level 21.9 Anion Gap 11 Estimat Glomerular Filtration Rate 36 Blood Gas Puncture Site RT BRACHIAL Blood Gas Patient Temperature 98.6 Blood Gas HCO3 20 Blood Gas Base Excess -3.6 Blood Gas Oxygen Saturation 96 Arterial Blood pH 7.47 Arterial Blood Partial Pressure CO2 27 Arterial Blood Partial Pressure O2 115 Arterial Blood Oxygen Content 9.6 Arterial Blood Carboxyhemoglobin 2.1 Arterial Blood Methemoglobin 1.2 Blood Gas Hemoglobin 6.9 Oxygen Delivery Device VENTILATOR Blood Gas Ventilator Setting SEE COMMENTS Blood Gas Inspired Oxygen 30 Test 09/30/17 10:45 09/30/17 13:12 Urine Color YELLOW Urine Turbidity CLOUDY Urine pH 5.0 Urine Specific [place] 1.020 Urine Protein 30 Urine Glucose (UA) NEG Urine Ketones NEG Urine Occult Blood SMALL Urine Nitrite NEG Urine Bilirubin NEG Urine Urobilinogen LESS THAN 2.0 Urine Leukocyte Esterase NEG Urine RBC 30 Urine WBC 2 Urine Squamous Epithelial Cells 4 Urine Transitional Epithelial Cells 1 Urine Amorphous Sediment MOD Urine Bacteria OCC Urine Granular Casts 4 Urine Mucus FEW Microscopic Urinalysis Comment CATH-CULTURE IND Hemoglobin 6.6 Hematocrit 20.0 Prothrombin Time 11.8 Prothromb Time International Ratio 1.2 Activated Partial Thromboplast Time 24.5 Fibrinogen 442 Date/Time Source Procedure Growth Status 09/30/17 14:00 Blood Peripheral Aerobic Blood Culture Pending Received 09/30/17 14:00 Blood Peripheral Anaerobic Blood Culture Pending Received 09/30/17 10:45 Sputum Endotracheal Gram Stain Pending Received 09/30/17 10:45 Sputum Endotracheal Sputum Culture Pending Received 09/30/17 10:45 Urine Catheterized Urine Urine Culture Pending Received 09/15/17 08:31 Wound Abdomen Gram Stain - Final Complete 09/15/17 08:31 Wound Abdomen Wound Culture - Final NO GROWTH IN 72 HRS.--AEROBICALLY OR ... Complete Radiology Last Impressions Abdomen/Pelvis CT 09/30/17 0000 Signed Impressions: Service Date/Time: Saturday, September 30, 2017 11:53 - CONCLUSION: 1. There is a complex mesenteric collection containing high and low density fluid as well as scattered air bubbles in or 14.5 x 8.8 x 12.0 cm. This likely represents a walled-off perforation with possible formation of abscess. Clinical correlation is recommended. 2. Several mildly dilated loops of small bowel raising the possibility of partial small bowel traction. Clinical correlation is recommended. 3. Moderate amount of ascites within the upper abdomen. 4. Uncomplicated colonic diverticulosis. 5. Small left pleural effusion. 6. Bibasilar atelectasis. 7. Anasarca throughout the abdominal wall. Darion Oates MD Chest X-Ray 09/29/17 0000 Signed Impressions: Service Date/Time: Friday, September 29, 2017 11:31 - CONCLUSION: 1. Cardiomegaly with bilateral effusions and interstitial prominence consistent with congestive failure. 2. The tip of the endotracheal tube is not visualized due to technique. If further assessment of this is desired repeat exam could be attempted. 3. Appearance of the parenchyma has worsened compared to prior. Haris Mcfarland MD Head CT 09/19/17 0000 Signed Impressions: Service Date/Time: Tuesday, September 19, 2017 15:54 - CONCLUSION: 1. No evidence of acute intracranial pathology. No masses are identified. 2. Bilateral mastoiditis Jens John MD Chest CT 09/19/17 0000 Signed Impressions: Service Date/Time: Tuesday, September 19, 2017 15:59 - CONCLUSION: 1. Multifocal areas of consolidation greatest in right lower lobe most characteristic of pneumonia. 2. Abnormal soft tissue density in the right axilla contiguous with abnormal soft tissue density and inflammatory change extending along the right lateral chest wall. This could represent hemorrhage and/or inflammatory change. There are no gas bubbles are infection cannot be excluded. 3. There is fluid again noted in the upper abdomen. 4. Moderate elevation of the right hemidiaphragm. Yuri Holt MD Abdomen Fluoroscopy 09/08/17 0000 Signed Impressions: Service Date/Time: Friday, September 08, 2017 12:04 - CONCLUSION: Uncomplicated nasogastric tube placement as above. Tae Archuleta Jr., MD Last Impressions Chest X-Ray 09/23/17 0600 Signed Impressions: Service Date/Time: Saturday, September 23, 2017 04:54 - CONCLUSION: No significant change has occurred. Shailesh Bernal MD Head CT 09/19/17 0000 Signed Impressions: Service Date/Time: Tuesday, September 19, 2017 15:54 - CONCLUSION: 1. No evidence of acute intracranial pathology. No masses are identified. 2. Bilateral mastoiditis Jens John MD Chest CT 09/19/17 0000 Signed Impressions: Service Date/Time: Tuesday, September 19, 2017 15:59 - CONCLUSION: 1. Multifocal areas of consolidation greatest in right lower lobe most characteristic of pneumonia. 2. Abnormal soft tissue density in the right axilla contiguous with abnormal soft tissue density and inflammatory change extending along the right lateral chest wall. This could represent hemorrhage and/or inflammatory change. There are no gas bubbles are infection cannot be excluded. 3. There is fluid again noted in the upper abdomen. 4. Moderate elevation of the right hemidiaphragm. Yuri Holt MD Abdomen/Pelvis CT 09/19/17 0000 Signed Impressions: Service Date/Time: Tuesday, September 19, 2017 15:59 - CONCLUSION: 1. There is no evidence of abscess. 2. Mild ascites Jens John MD Abdomen Fluoroscopy 09/08/17 0000 Signed Impressions: Service Date/Time: Friday, September 08, 2017 12:04 - CONCLUSION: Uncomplicated nasogastric tube placement as above. Tae Archuleta Jr., MD Cardiovascular: Regular Lungs: Clear Narrative Exam blood output in bag pos distension A/P Assessment and Plan POD S/P Laparoscopic SBR for gangrenous small bowel New bleed ? mesenteric vs bowel patient poor surgical candidate her prognosis is poor with or without an operation this was explained to the family. wish is to pursue non operative care at this point will follow H/H transfuse as necessary with blood and blood product cont vent support Husam Hernandez MD Sep 30, 2017 19:04
[2017-09-30] MEDS: RESP: ALBUTEROL 2.5 MG/IPRATROPIUM 0.5 MG NEB (PRN) NEB (20:29)
[2017-09-30] MEDS: MULTIVITAMIN INJ 10 ML, FOLIC ACID INJ 1 MG, INSULIN HUMAN REGULAR INJ 40 UNITS in AMIN... IV-CENTRAL SCH (22:16)
[2017-09-30 22:50] LABS: HEMATOCRIT 21.2 % (35.0-46.0)
[2017-09-30 23:10] LABS: REVIEW FLAG FINAL
[2017-10-01] VITALS (24 sets, daily range): BP systolic 97–159; BP diastolic 47–73; PULSE 89–108; RESP 16–31; TEMP 97.4–101; O2SAT 97–100
[2017-10-01] MEDS: INSULIN ASPART SUPPLEMENTAL SCALE SQ SCH ×5 (00:13→23:15)
[2017-10-01 04:39] LABS: AUTOMATED NEUTROPHIL # 8.7 TH/MM3 (1.8-7.7); BASOPHIL % 0.4 % (0.0-2.0); EOSINOPHIL % 0.2 % (0.0-4.0); HEMATOCRIT 21.2 % (35.0-46.0); HEMO FLAGS DIFF FINAL; LYMPH % 14.3 % (9.0-44.0); LYMPHOCYTE # 1.6 TH/MM3 (1.0-4.8); MEAN CELL VOLUME 86.4 FL (80.0-100.0); MEAN CORPUSCULAR HEMOGLOBIN 29.9 PG (27.0-34.0); MEAN CORPUSCULAR HGB CONC 34.6 % (32.0-36.0); MONO % 8.4 % (0.0-8.0); NEUT % 76.7 % (16.0-70.0); PLATELET COUNT 207 TH/MM3 (150-450); RED BLOOD COUNT 2.45 MIL/MM3 (4.00-5.30); RED CELL DISTRIBUTION WIDTH 15.2 % (11.6-17.2); WHITE BLOOD COUNT 11.4 TH/MM3 (4.0-11.0)
[2017-10-01] MEDS: LEVOTHYROXINE SODIUM 50 MCG TAB PO SCH (04:56)
[2017-10-01] MEDS: PIPERACIL-TAZO 3.375 GM PREMIX 50 ML IV SCH ×4 (04:56→23:14)
[2017-10-01 05:00] LABS: BICARBONATE 19.8 MEQ/L (21.0-32.0); POTASSIUM 3.9 MEQ/L (3.5-5.1)
--- NOTE | 2017-10-01 06:09 | RADRPT ---
EXAM DATE/TIME: 10/01/2017 05:05 [facility] COMPARISON: CHEST SINGLE AP, September 29, 2017, 11:31. INDICATIONS : Follow up effusions. MEDICAL HISTORY : Rheumatoid arthritis. Seizures. SURGICAL HISTORY : Cholecystectomy. gastric sleeve. ENCOUNTER: Subsequent ACUITY: 3 weeks PAIN SCORE: Non-responsive. LOCATION: Bilateral chest FINDINGS: Mid and lower lung consolidation improved. Decreasing pleural effusions, now very small. No pneumotho rax. Heart size stable, mildly enlarged. Tracheostomy tube again noted. Nasogastric tube courses into the stomach. There is a left subclavian central venous catheter tip in the superior vena cava. CONCLUSION: Decreasing bilateral consolidation and effusions, now mild/very small. Damian Sauceda MD on October 01, 2017 at 6:07 Board Certified Radiologist. This report was verified electronically.
[2017-10-01 07:03] LABS: STAT NO
[2017-10-01] MEDS: CHLORHEXIDINE 0.12% (ORAL KIT) 15 ML CUP MT SCH ×2 (08:00→20:00)
--- NOTE | 2017-10-01 08:46 | HHI.CCPN ---
Subjective Remarks/Hospital Course Note for 09/28/17: 61-year-old morbidly obese female presents, patient of Dr. Epstein, status post gastric sleeve 08-22-17 now presents with nonbloody emesis and unable to have a bowel movement for a couple days. She states to get that bowel movement she had a use a glycerin suppository and it was just loose. He was taken emergently to operating room and was found to have a small bowel ischemia. She underwent laparoscopic small bowel resection by Dr. Epstein and is postoperatively admitted to critical care unit SUBJ 09/09/17: Remains very critically ill. Profound septic shock requiring Levophed at 40 mcg/m, Des-Synephrine at 500 mcg/m, vasopressin at 0.04 international units, and to be demand 5 g per KG per minute. Urine output 150 mL overnight. Maintaining oxygen saturation. A.m. labs are pending at this time. Surprisingly patient is still mentating able to communicate. Remains on IV fentanyl infusion for pain control. Operative report is pending at this time. Received total of 9 L of crystalloid postoperatively. Receiving 2 units of PRBC. I will replace calcium. Lactic acid 3.5 at 4 AM 09/10: Critically ill but stable. Levophed down to 12 mcg/min, vasopressin at 0.04 IU. Uo 650 ml in 24 hours, bilateral abdominal drains with 1 L output. Right drain had greenish output overnight and now serosanguineous. D/ W Dr Epstein- he confirms perforation and gross contamination 09/11: Remains critically. FiO2 requirement up to 60%, I have increased PEEP to 10. CXR consistent with ARDS versus fluid overload. Creatinine increased to 1.24. Urine output 600 ml in 24 hours. CVP 18-20. Start IV Bumex 1 mg every 12 hours with additional 1 mg dose now. Levophed at 1 mcg/min, vasopressin at 0.04 IU 09/12: remains critically ill but stable to improving. SBP 130-140 on vasopressin will DC vasopressin. Chest x-ray shows bilateral pulmonary edema, but oxygenation has improved. Stable on 50% and PEEP of 10. Creatinine has worsened to 1.67 but urine output 1.5 L in 24 hours with Bumex. CVP remains about 20. Will increase Bumex to 1 mg every 8 hours and give additional 1 mg now. Closely monitor creatinine. 09/13: Weaning off vasopressors. SHEA persists. CXR with diffuse infiltrates , will switch modes for better recruitment hopefully. 09/14: Gas exchange improved on APRV. Renal function deteriorating. Remains fluid overloaded. 09/15: Gas exchange improved but renal function continues to deteriorate. Continue APRV - bases struggle for domain. 09/16: remains fairly encephalopathic, likely hypoactive delirium. renal function still worse today, although ? peaked?. continue APRV: body habitus would make de-recruitment almost certain if we switch to conventional mode of ventilation. still diuresing well. 09/17: creatinine continues to worsen despite adequate diuresis. BP lower today. will hold lasix drip. off all sedation x 12h and still remains encephalopathic, not following commands. may need renal replacement therapy at some point. severe electrolyte derrangements due to diuresis, and free water deficit. 09/18: Cr slightly downtrended. mental status still poor. long discussion with family and multiple members updated. remains off sedation. continuing to hold diuresis. 09/19: Cr still slightly downtrended. surgery concerned possible tube feeds in ROSSI drain after starting trickle TF yesterday. also, patient had more labored breathing on vent. etco2 70s, worsening hypercarbia and peak pressures. changed vent modes temporarily, increased minute ventilation, improved pco2, but then patient became acutely hypotensive. stat CXR ordered. clinically worse today. in addition, still no improvements in mental status. CT abd/pelvis with PO contrast ordered as well as CT brain. 09/20: CXR clear, will convert back to spontaneous ventilation to avoid CO2 retention. Marked azotemia, likely contributing to obtundation. BUN > 130. 09/21: Oxygenation remains improved. Peripheral edema resolving. Azotemia persists. BUN > 140 today. 09/22: Slightly improving enough renal functions. H&H critical, no signs of active bleeding, more likely iatrogenic due to frequent blood draws and dilutional. 09/23: s/p trach in OR today. hgb improved. renal function improving. organs are stable enough for transfer to LTAC. needs slow wean with lots of pulmonary rehab. 09/24: still putting out 300cc/24h out of right ROSSI, with bile. mental status improving, slowly. 09/25: Improved neurological function. Controlled fistula. 09/26: Remains on mechanical ventilation via tracheostomy. Daily C Pap trials ongoing. On TPN. 09/27: No leukocytosis and fistula appears well controlled. LTAC will be good transfer for ongoing vent weaning. 09/28: Low grade fever but no leukocytosis. Stable hemodynamics. Abdomen benign. All cultures NG. 09/29: Tolerating C Pap trials. Chest x-ray shows bilateral effusions. Initiating diuresis mobilize fluid. More awake, follows commands however extremely weak and extremities. Remains on TPN. Subjective: 09/30 Bleeding noted in ROSSI overnight, Hgb 5.7. Three units PRBC ordered and 1 unit infusing when am labs drawn in which Hgb was 5.7. Currently receiving 3rd unit of PRBC. Dr. Hernandez updated overnight. Now ROSSI no longer having output, obtaining CT abd/pelvis. Tachypneic, tachycardic in 108, BP 96/53. No BM. 10/01: Back on vent support. Required several transfusions over past 24 hours. Drainage minimal. Objective Vital Signs Date Time Temp Pulse Resp B/P (MAP) Pulse Ox O2 Delivery O2 Flow Rate FiO2 10/01/17 08:01 99 30 10/01/17 06:00 108 10/01/17 04:00 99.8 28 134/72 (92) Intake and Output 10/01/17 10/01/17 10/02/17 08:00 16:00 00:00 Intake Total 550 ml Output Total 990 ml Balance -440 ml Result Diagram: 10/01/17 0404 10/01/17 0404 Other Results Laboratory Tests Test 09/30/17 09:33 Blood Gas Puncture Site RT BRACHIAL Blood Gas Patient Temperature 98.6 Blood Gas HCO3 20 mmol/L (22-26) Blood Gas Base Excess -3.6 mmol/L (-2-2) Blood Gas Oxygen Saturation 96 % (90-100) Arterial Blood pH 7.47 (7.380-7.420) Arterial Blood Partial Pressure CO2 27 mmHg (38-42) Arterial Blood Partial Pressure O2 115 mmHg (61-120) Arterial Blood Oxygen Content 9.6 Vol % (12.0-20.0) Arterial Blood Carboxyhemoglobin 2.1 % (0-4) Arterial Blood Methemoglobin 1.2 % (0-2) Blood Gas Hemoglobin 6.9 G/DL (12.0-16.0) Oxygen Delivery Device VENTILATOR Blood Gas Ventilator Setting SEE COMMENTS Blood Gas Inspired Oxygen 30 % Imaging Last 48 hours Impressions Chest X-Ray 09/29/17 0000 Signed Impressions: Service Date/Time: Friday, September 29, 2017 11:31 - CONCLUSION: 1. Cardiomegaly with bilateral effusions and interstitial prominence consistent with congestive failure. 2. The tip of the endotracheal tube is not visualized due to technique. If further assessment of this is desired repeat exam could be attempted. 3. Appearance of the parenchyma has worsened compared to prior. Haris Mcfarland MD Objective Remarks GENERAL: morbidly obese, pale and critically ill appearing female SKIN: Dry, mottled appearing bilat lower extremities. Serous clear blisters in right lower abdomen. HEAD: Normocephalic. EYES: Pupils 2 mm and sluggishly reactive. Anicteric. Pale conjunctiva NECK: Trachea midline. Proximal XL T trach in place, no exudate or bleeding CARDIOVASCULAR: Tachycardic, regular, sinus tach on the monitor. Heart sounds distant. No murmur rub or gallop appreciated. JVD difficult to assess due to body habitus. RESPIRATORY: Tachypneic, equal breath sounds bilaterally, persistent scattered rhonchi. PRVC PEEP 10. GASTROINTESTINAL: Abdomen distended, obese, abdominal wall edema/anasarca present with significant dependent edema RLQ. ROSSI in RLQ with minimal bloody output and clots. Bag in place around ROSSI site, no drainage currently ( reportedly previously bilious appearing drainage). MUSCULOSKELETAL: No cyanosis. 2+ edema, diffuse. NEURO EXAM: Eyes open spontaneously , makes eye contact and has very slight nod to voice. Very weak movement of fingers and toes to noxious stimuli. A/P Assessment and Plan Assessment: 61yF s/p gastric bypass complicated by small bowel obstruction, intra-abdominal sepsis, persistent respiratory failure, volume overload. remains off pathway. s/p trach. Now with acute blood loss anemia, bleeding from ROSSI. A/P: NEURO: Seizure disorder Metabolic encephalopathy Hypoactive Delirium - Currently off all sedation - Keppra 500 IV q12. - fentanyl prn for positioning. - haldol for agitation - has been on provigil for wakefulness. RESP: Acute hypoxemic respiratory failure - persistent, stable. ARDS HCAP with E Coli - Continue mechanical ventilation - Vent bundle - DuoNeb every 6 hours scheduled and when necessary - CXR 09/29 - Bilateral effusions, bilateral perihilar opacities. - Tracheostomy by Dr. Preciado 09/23 - Slow vent weaning, will eventually need LTAC when stabilized. CVS: Septic shock-resolved. Lactic acidosis - resolved. Recurrent Hypotension, secondary to acute blood loss - s/p Aggressive IV fluid resuscitation, postop received 9 L of normal saline, 2 units of PRBC - s/p hydrocortisone taper completed 09/18. - Diuresis with lasix initiated 09/29. Will hold currently due to active bleeding, will use intermittently following transfusion when intravascularly resuscitated. GI: Small bowel ischemia/Perforation Peritonitis Bile leak Bleeding - S/P Laparoscopic SBR for gangrenous small bowel - Post op surgical management per Dr. Epstein general surgery - Nepro trickle feeds on hold, diet management per general surgery. - IV Protonix. Started TPN 09/10/17 - ct abd/pelvis with PO contrast showing no abscess 09/19 - ROSSI management per gen surgery. FEN: Hypernatremia Free water deficit Hypokalemia Hypomagnesemia - electrolyte replacement as needed. - TPN 75 ml/hr. D5W 42 ml/hr - Daily BMP : Acute kidney failure - improving. Contraction alkalosis - improving. - ATN most likely from severe septic shock. Had been improving, uptrend this morning. - Maintain Bed[place] for accurate intake output HEME: Anemia secondary to acute blood loss - Platelet count normal. INR 1.2 - Hgb 5.7. Transfusing 3 units PRBC and will monitor Hgb q6 hours. 2 units FFP on hold. Was on Lovenox 60 q12 since 09/26. Now on hold. ID: Septic shock - resolved. Peritonitis HCAP with E Coli - resolved Leukocytosis. - Sputum culture 09/08 E Coli - Blood cultures, urine culture from 09/27 negative. - ID following, Dr. Enriquez. - Continue Zosyn. Temp max 100.3 overnight. Panculture. Broaden abx if clinical worsening/eo infection. ENDO: Diabetes mellitus Hypocalcemia - Insulin sliding scale, and IV insulin with TPN - Electrolyte replacement per protocol - Continue levemir 18 units subcut bid - po synthroid now that gut function improving. DVT GI prophylaxis - Teds SCDs - Pharmacological DVT prophylaxis - Protonix Lines: Right IJ line d/c'd 09/20, New left SCV CVL placed 09/20 #11. Replace if recurring fever. Discussed with Dr. Hernandez, obtained CT abd/pelvis. Patient is critically ill with recent active bleeding and acute symptomatic blood loss anemia. Currently hypotension is responsive to transfusion. She is at high risk for further deterioration. Dr. Hernandez and Dr. Hair met with patient's after CT resulted. ROSSI drain is no longer draining and there is large hematoma present, clinically appears to have ongoing bleeding. Dr. Hernandez offered ex lap to however discussed that with patients current debility and poor healing potential her prognosis is poor. opted against surgery at this time, continuing medical management. desires full code at this time. Overall impression: Critically ill and deteriorating clinical condition. Critical Care 45 mins Jose Landin MD Oct 01, 2017 08:46
[2017-10-01] MEDS: ALBUMIN 25% INJ 100 ML IV SCH ×3 (08:47→23:30)
[2017-10-01] MEDS: ARTIFICIAL TEARS OPTH SOLN 15 ML BTL EACH EYE SCH ×3 (09:00→18:00)
[2017-10-01] MEDS: SODIUM CHLORIDE 0.9% FLUSH 10 ML FLUSH IV FLUSH SCH ×2 (09:00→20:43)
[2017-10-01] MEDS: DEXTROSE 5% IN WATE 1000ML INJ 1,000 ML IV SCH ×2 (09:49→21:13)
[2017-10-01] MEDS: INSULIN DETEMIR 100 UNITS/ML VIAL SQ SCH ×2 (10:09→20:44)
[2017-10-01] MEDS: levETIRAcetam INJ 500 MG in SODIUM CHLORIDE 0.9% INJ 100 ML IV SCH ×2 (10:09→20:43)
[2017-10-01] MEDS: PANTOPRAZOLE SODIUM 40 MG VIAL IV PUSH SCH (10:10)
[2017-10-01] MEDS: MODAFINIL 200 MG TAB PO SCH (10:10)
--- NOTE | 2017-10-01 13:16 | PD.RAD ---
Post CT Procedure Prog Note Pre Procedure Diagnosis: (1) Ascites (2) Ileus following gastrointestinal surgery (3) Small bowel obstruction Post Procedure Diagnosis: (1) Ascites (2) Ileus following gastrointestinal surgery (3) Small bowel obstruction Procedure Date: Oct 01, 2017 Supervising Radiologist: Ross Flaherty Plan of Activity Patient to Unit: Critical Care Patient Condition: Poor See PACS Report for procedural detail/treatment Drainage Procedure Procedure 1 Imaging Guidance: CT Side: Left Procedure Type: Peritoneal Catheter Non-Tunneled Drainage: Suction Fluid Removal (CCs): 750 Fluid Description: Cloudy, Yellow, Red Ross Flaherty MD Oct 01, 2017 13:16
[2017-10-01] MEDS: MICAFUNGIN INJ 100 MG in SODIUM CHLORIDE 0.9% INJ 100 ML IV SCH (14:04)
[2017-10-01 14:21] LABS: REVIEW FLAG FINAL
[2017-10-01 14:23] LABS: HEMATOCRIT 19.3 % (35.0-46.0)
--- NOTE | 2017-10-01 15:04 | HHI.IDPN ---
Note Infectious Disease Note Patient is sedated. Afebrile. Has decreased hemoglobin. Received 6 units of blood. large fluid collection noted in abdomen. Drainage catheter placed by radiology into abdomen has serous drainage. large amount of bloody fluid removed. Culture sent. Presented to the emergency department on September 07 and was diagnosed with small bowel obstruction. She was taken to surgery and was found to have necrosed, perforated small bowel and she underwent small bowel resection. The patient previously had elective gastric sleeve on 08/22/2017. After that she was having nausea and vomiting and then difficulty passing stools. During the surgical procedure the patient had some purulent material within the abdomen. PAST MEDICAL HISTORY 1. Rheumatoid arthritis 2. Hypothyroidism 3. Gout 4. Depression 5. Seizure disorder 6. Attention deficit disorder 7. Cholecystectomy 8. Tonsillectomy 9. Ankle arthroplasty 10. Gastric sleeve. 08/22/17. ALLERGIES PROPOXYPHENE DARVOCET ADHESIVE TAPES ANTIBIOTICS Zosyn. Vancomycin. Micafungin. Current Medications Medications (Trade) Dose Ordered Sig/Daniel Route PRN Reason Start Time Stop Time Status Last Admin Dose Admin Pantoprazole Sodium (Protonix Inj) 40 mg DAILY IV PUSH 09/08/17 09:00 10/01/17 10:10 Sodium Chloride (NS Flush) 2 ml UNSCH PRN IV FLUSH FLUSH AFTER USING IV ACCESS 09/08/17 19:15 Sodium Chloride (NS Flush) 2 ml BID IV FLUSH 09/08/17 21:00 10/01/17 09:00 Ondansetron HCl (Zofran Inj) 4 mg Q4H PRN IV PUSH NAUSEA OR VOMITING 09/08/17 19:15 09/08/17 20:00 Levetriacetam 500 mg/Sodium Chloride 105 ml @ 420 mls/hr Q12HR IV 09/09/17 09:00 10/01/17 10:09 Albumin Human 100 ml @ 60 mls/hr Q8H IV 09/09/17 08:00 10/01/17 08:47 Multivitamins 10 ml/Folic Acid 1 mg/Insulin Human Regular 40 units/ Amino Acids/ Electrolytes/ Dextrose 2,010.6 ml @ 75 mls/hr Q24H IV-CENTRAL 09/11/17 20:00 09/30/17 22:16 Albuterol/ Ipratropium (Duoneb Neb) 1 ampule Q2HR NEB PRN NEB SHORTNESS OF BREATH 09/12/17 14:00 09/30/17 20:29 Dextrose (D50w (Vial) Inj) 50 ml UNSCH PRN IV PUSH HYPOGLYCEMIA-SEE COMMENTS 09/13/17 12:30 Glucagon (Glucagon Inj) 1 mg UNSCH PRN OTHER HYPOGLYCEMIA-SEE COMMENTS 09/13/17 12:30 Insulin Aspart (NovoLOG SUPPLEMENTAL SCALE) 1 Q6HR SQ 09/13/17 12:30 10/01/17 00:13 Chlorhexidine Gluconate (Peridex 0.12% Liq) 15 ml BID@08,20 MT 09/13/17 20:00 10/01/17 08:00 Haloperidol Lactate (Haldol Inj) 5 mg Q4H PRN IV PUSH agitation 09/16/17 15:45 09/30/17 00:21 Fentanyl Citrate (fentaNYL INJ) 50 mcg Q1H PRN IV PUSH pain 8-10 if not taking po 09/16/17 15:45 09/30/17 01:15 Modafinil (Provigil) 200 mg DAILY PO 09/17/17 09:00 10/01/17 10:10 Artificial Tears (Tears Naturale Opth Soln) 1 drop TID EACH EYE 09/16/17 20:00 10/01/17 13:00 Hydralazine HCl (Apresoline Inj) 20 mg Q4H PRN IV PUSH SBP>160, DBP>90 09/18/17 23:45 09/28/17 09:41 Labetalol HCl (Trandate Inj) 10 mg Q4H PRN IV PUSH SBP>160, DBP>90 09/18/17 23:45 09/26/17 19:08 Insulin Detemir (Levemir Inj) 18 units Q12HR SQ 09/20/17 21:00 10/01/17 10:09 Levothyroxine Sodium (Synthroid) 50 mcg DAILY@0600 PO 09/24/17 06:00 10/01/17 04:56 Potassium Chloride 100 ml @ 50 mls/hr Q2H PRN IV For Potassium 2.8 - 3.2 mEq/L 09/27/17 11:00 09/28/17 04:02 Potassium Chloride 100 ml @ 50 mls/hr Q2H PRN IV For Potassium 2.8 - 3.2 mEq/L 09/27/17 11:00 Potassium Bicarb/ Potassium Chloride (K-Lyte Cl Eff) 50 meq UNSCH PRN PO For Potassium 3.3 - 3.5 mEq/L 09/27/17 11:00 Potassium Chloride 100 ml @ 25 mls/hr UNSCH PRN IV For Potassium 3.3 - 3.5 mEq/L 09/27/17 11:00 Potassium Chloride 100 ml @ 50 mls/hr Q2H PRN IV For Potassium 3.3 - 3.5 mEq/L 09/27/17 11:00 Magnesium Sulfate 4 gm/Sodium Chloride 100 ml @ 50 mls/hr UNSCH PRN IV For Magnesium 0.9 - 1.1 mg/dL 09/27/17 11:00 Magnesium Oxide (Mag-Ox) 800 mg UNSCH PRN PO For Magnesium 1.2 - 1.6 mg/dL 09/27/17 11:00 Magnesium Sulfate 2 gm/Sodium Chloride 100 ml @ 50 mls/hr UNSCH PRN IV For Magnesium 1.2 - 1.6 mg/dL 09/27/17 11:00 Potassium Phosphate (K-Phos) 2,000 mg Q4H PRN PO For Phosphorus < 2.5 mg/dL 09/27/17 11:00 Sodium Phosphate 30 mmol/Sodium Chloride 250 ml @ 42 mls/hr UNSCH PRN IV For Phosphorus < 2.5 mg/dL 09/27/17 11:00 Potassium Phosphate (K-Phos) 2,000 mg UNSCH PRN PO/TUBE SEE LABEL COMMENTS 09/27/17 11:00 Potassium Phosphate 30 mmol/ Sodium Chloride 260 ml @ 42 mls/hr UNSCH PRN IV SEE LABEL COMMENTS 09/27/17 11:00 Piperacillin Sod/ Tazobactam Sod 50 ml @ 100 mls/hr Q6H IV 09/27/17 18:00 10/01/17 14:03 Dextrose 1,000 ml @ 42 mls/hr [id number] IV 09/30/17 10:00 09/30/17 10:00 Micafungin Sodium 100 mg/Sodium Chloride 100 ml @ 100 mls/hr Q24H IV 09/30/17 13:00 10/01/17 14:04 Pharmacy Profile Note 0 ml @ 0 mls/hr UNSCH OTHER 12/16/17 12:45 Vancomycin HCl 2500 mg/Sodium Chloride 525 ml @ 257.5 mls/ hr Q24H IV 09/30/17 16:00 09/30/17 16:30 Miscellaneous Information SPECIFIC LAB TO BE KATE... ONCE ONCE .XX 10/03/17 15:45 10/03/17 15:46 OBJECTIVE: Vital Signs Date Time Temp Pulse Resp B/P (MAP) Pulse Ox O2 Delivery O2 Flow Rate FiO2 10/01/17 12:20 100 100 10/01/17 12:00 30 10/01/17 11:57 98 30 10/01/17 10:00 97 10/01/17 08:01 99 30 10/01/17 08:00 95 10/01/17 08:00 30 10/01/17 08:00 101.0 98 26 145/65 (91) 99 10/01/17 06:00 108 10/01/17 04:00 100 10/01/17 04:00 30 10/01/17 04:00 99.8 104 28 134/72 (92) 99 10/01/17 03:53 98 30 10/01/17 02:06 99.6 101 27 131/60 99 10/01/17 02:00 106 10/01/17 01:04 98 30 10/01/17 00:00 100.2 99 31 130/56 (80) 100 10/01/17 00:00 30 10/01/17 00:00 99 09/30/17 23:47 100.2 88 24 130/60 98 09/30/17 22:00 105 09/30/17 20:29 97 30 09/30/17 20:00 105 09/30/17 20:00 100.3 104 26 122/55 (77) 100 09/30/17 20:00 30 09/30/17 19:45 100.4 101 31 119/58 99 09/30/17 18:41 100.1 104 36 117/56 100 09/30/17 18:30 100.4 104 36 116/59 100 09/30/17 18:00 104 09/30/17 17:43 100.4 104 37 109/51 100 09/30/17 17:25 100.4 101 34 113/53 100 09/30/17 16:30 100.6 103 31 105/57 100 09/30/17 16:30 100.6 104 31 105/57 100 09/30/17 16:13 100 30 09/30/17 16:00 30 09/30/17 16:00 104 09/30/17 16:00 100.6 104 31 99/55 (70) 100 09/30/17 15:48 99.9 108 33 99/59 100 09/30/17 15:35 99.9 108 31 103/58 100 Laboratory Tests Test 09/30/17 00:45 09/30/17 04:30 09/30/17 13:12 09/30/17 22:23 Hemoglobin 5.7 GM/DL 5.7 GM/DL 6.6 GM/DL 6.9 GM/DL Hematocrit 17.7 % 17.3 % 20.0 % 21.2 % White Blood Count 12.3 TH/MM3 Red Blood Count 1.93 MIL/MM3 Mean Corpuscular Volume 89.7 FL Mean Corpuscular Hemoglobin 29.7 PG Mean Corpuscular Hemoglobin Concent 33.1 % Red Cell Distribution Width 16.2 % Platelet Count 334 TH/MM3 Mean Platelet Volume 9.1 FL Test 10/01/17 04:04 10/01/17 13:45 White Blood Count 11.4 TH/MM3 Red Blood Count 2.45 MIL/MM3 Hemoglobin 7.3 GM/DL 6.9 GM/DL Hematocrit 21.2 % 19.3 % Mean Corpuscular Volume 86.4 FL Mean Corpuscular Hemoglobin 29.9 PG Mean Corpuscular Hemoglobin Concent 34.6 % Red Cell Distribution Width 15.2 % Platelet Count 207 TH/MM3 Mean Platelet Volume 8.9 FL Neutrophils (%) (Auto) 76.7 % Lymphocytes (%) (Auto) 14.3 % Monocytes (%) (Auto) 8.4 % Eosinophils (%) (Auto) 0.2 % Basophils (%) (Auto) 0.4 % Neutrophils # (Auto) 8.7 TH/MM3 Lymphocytes # (Auto) 1.6 TH/MM3 Monocytes # (Auto) 1.0 TH/MM3 Eosinophils # (Auto) 0.0 TH/MM3 Basophils # (Auto) 0.0 TH/MM3 CBC Comment DIFF FINAL Differential Comment Laboratory Tests Test 09/29/17 20:10 09/30/17 04:30 10/01/17 04:04 Potassium Level 3.5 MEQ/L 4.2 MEQ/L 3.9 MEQ/L Blood Urea Nitrogen 93 MG/DL 121 MG/DL Creatinine 1.49 MG/DL 2.12 MG/DL Random Glucose 176 MG/DL 128 MG/DL Calcium Level 8.6 MG/DL 8.6 MG/DL Sodium Level 150 MEQ/L 151 MEQ/L Chloride Level 117 MEQ/L 119 MEQ/L Carbon Dioxide Level 21.9 MEQ/L 19.8 MEQ/L Anion Gap 11 MEQ/L 12 MEQ/L Estimat Glomerular Filtration Rate 36 ML/MIN 24 ML/MIN Microbiology Date/Time Source Procedure Growth Status 09/30/17 19:06 Blood Peripheral Aerobic Blood Culture - Preliminary NO GROWTH IN 1 DAY Resulted 09/30/17 19:06 Blood Peripheral Anaerobic Blood Culture - Preliminary NO GROWTH IN 1 DAY Resulted 09/30/17 14:00 Blood Peripheral Aerobic Blood Culture - Preliminary NO GROWTH IN 1 DAY Resulted 09/30/17 14:00 Blood Peripheral Anaerobic Blood Culture - Preliminary NO GROWTH IN 1 DAY Resulted 10/01/17 13:00 Fluid Peritoneal Fluid Gram Stain Pending Received 10/01/17 13:00 Fluid Peritoneal Fluid Body Fluid Culture Pending Received 09/30/17 10:45 Sputum Endotracheal Gram Stain - Final Resulted 09/30/17 10:45 Sputum Endotracheal Sputum Culture - Preliminary LIGHT GROWTH NORMAL RESPIRATORY MANUEL... Resulted 09/30/17 10:45 Urine Catheterized Urine Urine Culture - Preliminary NO GROWTH IN 24 HOURS. Resulted IMAGING: Chest X-Ray 10/01/17 0600 Signed Impressions: Service Date/Time: Sunday, October 01, 2017 05:05 - CONCLUSION: Decreasing bilateral consolidation and effusions, now mild/very small. Damian Sauceda MD Abdomen/Pelvis CT 09/30/17 0000 Signed Impressions: Service Date/Time: Saturday, September 30, 2017 11:53 - CONCLUSION: 1. There is a complex mesenteric collection containing high and low density fluid as well as scattered air bubbles in or 14.5 x 8.8 x 12.0 cm. This likely represents a walled-off perforation with possible formation of abscess. Clinical correlation is recommended. 2. Several mildly dilated loops of small bowel raising the possibility of partial small bowel traction. Clinical correlation is recommended. 3. Moderate amount of ascites within the upper abdomen. 4. Uncomplicated colonic diverticulosis. 5. Small left pleural effusion. 6. Bibasilar atelectasis. 7. Anasarca throughout the abdominal wall. Darion Oates MD Chest X-Ray 09/29/17 0000 Signed Impressions: Service Date/Time: Friday, September 29, 2017 11:31 - CONCLUSION: 1. Cardiomegaly with bilateral effusions and interstitial prominence consistent with congestive failure. 2. The tip of the endotracheal tube is not visualized due to technique. If further assessment of this is desired repeat exam could be attempted. 3. Appearance of the parenchyma has worsened compared to prior. Haris Mcfarland MD Chest X-Ray 09/23/17 0600 Signed Impressions: Service Date/Time: Saturday, September 23, 2017 04:54 - CONCLUSION: No significant change has occurred. Shailesh Bernal MD Chest X-Ray 09/20/17 0000 Signed Impressions: Service Date/Time: Wednesday, September 20, 2017 17:46 - CONCLUSION: 1. No pneumothorax status post placement of left subclavian central line which has its tip in the superior vena cava. 2. Stable bibasilar patchiness. 3. Stable cardiomegaly. Darion Oates MD Chest X-Ray 09/19/17 0400 Signed Impressions: Service Date/Time: Tuesday, September 19, 2017 04:10 - CONCLUSION: 1. Interval improvement in bilateral pulmonary infiltrates. 2. The patient remains intubated. Yuri Holt MD Head CT 09/19/17 0000 Signed Impressions: Service Date/Time: Tuesday, September 19, 2017 15:54 - CONCLUSION: 1. No evidence of acute intracranial pathology. No masses are identified. 2. Bilateral mastoiditis Jens John MD Chest X-Ray 09/19/17 0000 Signed Impressions: Service Date/Time: Tuesday, September 19, 2017 09:44 - CONCLUSION: Increasing bibasilar parenchymal changes worse on the right. Raghu Mcfarland MD FACR Chest CT 09/19/17 0000 Signed Impressions: Service Date/Time: Tuesday, September 19, 2017 15:59 - CONCLUSION: 1. Multifocal areas of consolidation greatest in right lower lobe most characteristic of pneumonia. 2. Abnormal soft tissue density in the right axilla contiguous with abnormal soft tissue density and inflammatory change extending along the right lateral chest wall. This could represent hemorrhage and/or inflammatory change. There are no gas bubbles are infection cannot be excluded. 3. There is fluid again noted in the upper abdomen. 4. Moderate elevation of the right hemidiaphragm. Yuri Holt MD Abdomen/Pelvis CT 09/19/17 0000 Signed Impressions: Service Date/Time: Tuesday, September 19, 2017 15:59 - CONCLUSION: 1. There is no evidence of abscess. 2. Mild ascites Jens John MD PHYSICAL EXAM: GENERAL: Sedate. HEENT: Head atraumatic, No icterus. No conjunctival erythema. NECK: Supple. No adenopathy. LUNGS: Bibasilar rhonchi. CARDIAC: Regular rate and rhythm. no murmurs, rubs or gallops. ABDOMEN: Obese. Soft. No tenderness appreciated. R. Arnie drain has bloody drainage. New Drain has serous drainage. EXTREMITIES: No clubbing, cyanosis. 1+ edema at the feet. NEURO: Sedated. SKIN: No rash. Warm and moist. IMPRESSION 1. Septic shock. 2. Post exploratory laparotomy and small bowel resection along with lysis of adhesions for small bowel perforation. 3. Peritonitis due to due to small bowel perforation. 4. Acute respiratory failure. Now has tracheostomy. 5. VAP gram negative. E. coli. 6. Acute kidney disease. ? sepsis related. ? medication. 7. Leukocytosis. WBC now normal. 8. Mastoiditis on CT scan. 9. Abnormal CXR. 10. Abdominal fluid collection. ? abscess. RECOMMENDATIONS 1. Continue Zosyn 2. Continue Vancomycin. 3. continue Micafungin. 4. Monitor culture. 5. Monitor temp. Discussed with RN and at bedside. Jus Enriquez MD Oct 01, 2017 15:04
[2017-10-01] MEDS: VANCOMYCIN INJ 2,500 MG in SODIUM CHLORID 0.9% 500 ML INJ 500 ML IV SCH (16:12)
[2017-10-01] MEDS: RESP: ALBUTEROL 2.5 MG/IPRATROPIUM 0.5 MG NEB (PRN) NEB (20:44)
[2017-10-01] MEDS: MULTIVITAMIN INJ 10 ML, FOLIC ACID INJ 1 MG, INSULIN HUMAN REGULAR INJ 40 UNITS in AMIN... IV-CENTRAL SCH (20:58)
[2017-10-01 22:16] LABS: REVIEW FLAG FINAL
[2017-10-02] VITALS (16 sets, daily range): BP systolic 98–116; BP diastolic 51–71; PULSE 80–99; RESP 16–30; TEMP 98–100.6; O2SAT 96–100
[2017-10-02 04:40] LABS: HEMATOCRIT 23.9 % (35.0-46.0); REVIEW FLAG FINAL
[2017-10-02 05:07] LABS: BICARBONATE 20.6 MEQ/L (21.0-32.0); POTASSIUM 3.8 MEQ/L (3.5-5.1)
[2017-10-02] MEDS: INSULIN ASPART SUPPLEMENTAL SCALE SQ SCH ×3 (06:00→18:00)
[2017-10-02] MEDS: PIPERACIL-TAZO 3.375 GM PREMIX 50 ML IV SCH ×3 (06:14→17:49)
[2017-10-02] MEDS: LEVOTHYROXINE SODIUM 50 MCG TAB PO SCH (06:14)
[2017-10-02] MEDS: CHLORHEXIDINE 0.12% (ORAL KIT) 15 ML CUP MT SCH ×2 (08:00→20:20)
[2017-10-02] MEDS: ALBUMIN 25% INJ 100 ML IV SCH ×2 (08:00→17:46)
--- NOTE | 2017-10-02 08:23 | HHI.CCPN ---
Subjective Remarks/Hospital Course Note for 09/28/17: 61-year-old morbidly obese female presents, patient of Dr. Epstein, status post gastric sleeve 08-22-17 now presents with nonbloody emesis and unable to have a bowel movement for a couple days. She states to get that bowel movement she had a use a glycerin suppository and it was just loose. He was taken emergently to operating room and was found to have a small bowel ischemia. She underwent laparoscopic small bowel resection by Dr. Epstein and is postoperatively admitted to critical care unit SUBJ 09/09/17: Remains very critically ill. Profound septic shock requiring Levophed at 40 mcg/m, Des-Synephrine at 500 mcg/m, vasopressin at 0.04 international units, and to be demand 5 g per KG per minute. Urine output 150 mL overnight. Maintaining oxygen saturation. A.m. labs are pending at this time. Surprisingly patient is still mentating able to communicate. Remains on IV fentanyl infusion for pain control. Operative report is pending at this time. Received total of 9 L of crystalloid postoperatively. Receiving 2 units of PRBC. I will replace calcium. Lactic acid 3.5 at 4 AM 09/10: Critically ill but stable. Levophed down to 12 mcg/min, vasopressin at 0.04 IU. Uo 650 ml in 24 hours, bilateral abdominal drains with 1 L output. Right drain had greenish output overnight and now serosanguineous. D/ W Dr Epstein- he confirms perforation and gross contamination 09/11: Remains critically. FiO2 requirement up to 60%, I have increased PEEP to 10. CXR consistent with ARDS versus fluid overload. Creatinine increased to 1.24. Urine output 600 ml in 24 hours. CVP 18-20. Start IV Bumex 1 mg every 12 hours with additional 1 mg dose now. Levophed at 1 mcg/min, vasopressin at 0.04 IU 09/12: remains critically ill but stable to improving. SBP 130-140 on vasopressin will DC vasopressin. Chest x-ray shows bilateral pulmonary edema, but oxygenation has improved. Stable on 50% and PEEP of 10. Creatinine has worsened to 1.67 but urine output 1.5 L in 24 hours with Bumex. CVP remains about 20. Will increase Bumex to 1 mg every 8 hours and give additional 1 mg now. Closely monitor creatinine. 09/13: Weaning off vasopressors. SHEA persists. CXR with diffuse infiltrates , will switch modes for better recruitment hopefully. 09/14: Gas exchange improved on APRV. Renal function deteriorating. Remains fluid overloaded. 09/15: Gas exchange improved but renal function continues to deteriorate. Continue APRV - bases struggle for domain. 09/16: remains fairly encephalopathic, likely hypoactive delirium. renal function still worse today, although ? peaked?. continue APRV: body habitus would make de-recruitment almost certain if we switch to conventional mode of ventilation. still diuresing well. 09/17: creatinine continues to worsen despite adequate diuresis. BP lower today. will hold lasix drip. off all sedation x 12h and still remains encephalopathic, not following commands. may need renal replacement therapy at some point. severe electrolyte derrangements due to diuresis, and free water deficit. 09/18: Cr slightly downtrended. mental status still poor. long discussion with family and multiple members updated. remains off sedation. continuing to hold diuresis. 09/19: Cr still slightly downtrended. surgery concerned possible tube feeds in ROSSI drain after starting trickle TF yesterday. also, patient had more labored breathing on vent. etco2 70s, worsening hypercarbia and peak pressures. changed vent modes temporarily, increased minute ventilation, improved pco2, but then patient became acutely hypotensive. stat CXR ordered. clinically worse today. in addition, still no improvements in mental status. CT abd/pelvis with PO contrast ordered as well as CT brain. 09/20: CXR clear, will convert back to spontaneous ventilation to avoid CO2 retention. Marked azotemia, likely contributing to obtundation. BUN > 130. 09/21: Oxygenation remains improved. Peripheral edema resolving. Azotemia persists. BUN > 140 today. 09/22: Slightly improving enough renal functions. H&H critical, no signs of active bleeding, more likely iatrogenic due to frequent blood draws and dilutional. 09/23: s/p trach in OR today. hgb improved. renal function improving. organs are stable enough for transfer to LTAC. needs slow wean with lots of pulmonary rehab. 09/24: still putting out 300cc/24h out of right ROSSI, with bile. mental status improving, slowly. 09/25: Improved neurological function. Controlled fistula. 09/26: Remains on mechanical ventilation via tracheostomy. Daily C Pap trials ongoing. On TPN. 09/27: No leukocytosis and fistula appears well controlled. LTAC will be good transfer for ongoing vent weaning. 09/28: Low grade fever but no leukocytosis. Stable hemodynamics. Abdomen benign. All cultures NG. 09/29: Tolerating C Pap trials. Chest x-ray shows bilateral effusions. Initiating diuresis mobilize fluid. More awake, follows commands however extremely weak and extremities. Remains on TPN. Subjective: 09/30 Bleeding noted in ROSSI overnight, Hgb 5.7. Three units PRBC ordered and 1 unit infusing when am labs drawn in which Hgb was 5.7. Currently receiving 3rd unit of PRBC. Dr. Hernandez updated overnight. Now ROSSI no longer having output, obtaining CT abd/pelvis. Tachypneic, tachycardic in 108, BP 96/53. No BM. 10/01: Back on vent support. Required several transfusions over past 24 hours. Drainage minimal. 10/02: Percutaneous abdominal drained placed in IR 10/01. Hgb stable since immediately after. Azotemia developing. Lung volumes reduced on CXR. Objective Vital Signs Date Time Temp Pulse Resp B/P (MAP) Pulse Ox O2 Delivery O2 Flow Rate FiO2 10/02/17 06:00 96 10/02/17 05:08 100 30 10/02/17 04:00 99.4 30 100/56 (71) Intake and Output 10/02/17 10/02/17 10/03/17 08:00 16:00 00:00 Output Total 2790 ml Balance -2790 ml Result Diagram: 10/02/17 0358 10/02/17 0358 Other Results Microbiology Date/Time Source Procedure Growth Status 09/30/17 10:45 Urine Catheterized Urine Urine Culture - Final NO GROWTH IN 48 HOURS. Complete Imaging Last 48 hours Impressions Chest X-Ray 09/29/17 0000 Signed Impressions: Service Date/Time: Friday, September 29, 2017 11:31 - CONCLUSION: 1. Cardiomegaly with bilateral effusions and interstitial prominence consistent with congestive failure. 2. The tip of the endotracheal tube is not visualized due to technique. If further assessment of this is desired repeat exam could be attempted. 3. Appearance of the parenchyma has worsened compared to prior. Haris Mcfarland MD Objective Remarks GENERAL: morbidly obese, pale and critically ill appearing female SKIN: Dry. Serous clear blisters in right lower abdomen. HEAD: Normocephalic. EYES: Pupils 2 mm and sluggishly reactive. Anicteric. Pale conjunctiva NECK: Trachea midline. Proximal XL T trach in place, no exudate or bleeding CARDIOVASCULAR: Tachycardic, regular, sinus tach on the monitor. Heart sounds distant. No murmur rub or gallop appreciated. JVD difficult to assess due to body habitus. RESPIRATORY: Tachypneic, equal breath sounds bilaterally, persistent scattered rhonchi. PRVC PEEP 10. GASTROINTESTINAL: Abdomen moderately distended, obese, abdominal wall edema/ anasarca present with significant dependent edema RLQ. ROSSI in RLQ with minimal bloody output and clots. Bag in place around ROSSI site, no drainage currently ( reportedly previously bilious appearing drainage). MUSCULOSKELETAL: No cyanosis. 2+ edema, diffuse. NEURO EXAM: Eyes open spontaneously , makes eye contact, +/- nod to voice. Very weak movement of fingers and toes to noxious stimuli. A/P Assessment and Plan Assessment: 61yF s/p gastric bypass complicated by small bowel obstruction, intra-abdominal sepsis, persistent respiratory failure, volume overload. remains off pathway. s/p trach. Now with acute blood loss anemia, bleeding from ROSSI. A/P: NEURO: Seizure disorder Metabolic encephalopathy Hypoactive Delirium - Currently off all sedation - Keppra 500 IV q12. - fentanyl prn for positioning. - haldol for agitation - has been on provigil for wakefulness. RESP: Acute hypoxemic respiratory failure - persistent, stable. ARDS HCAP with E Coli - Continue mechanical ventilation - Vent bundle - DuoNeb every 6 hours scheduled and when necessary - CXR 09/29 - Bilateral effusions, bilateral perihilar opacities. - Tracheostomy by Dr. Preciado 09/23 - Slow vent weaning, will eventually need LTAC when stabilized. CVS: Septic shock-resolved. Lactic acidosis - resolved. Recurrent Hypotension, secondary to acute blood loss - s/p Aggressive IV fluid resuscitation, postop received 9 L of normal saline, 2 units of PRBC - s/p hydrocortisone taper completed 09/18. - Diuresis with lasix initiated 09/29. Will hold currently due to active bleeding, will use intermittently following transfusion when intravascularly resuscitated. GI: Small bowel ischemia/Perforation Peritonitis Bile leak Bleeding - S/P Laparoscopic SBR for gangrenous small bowel - Post op surgical management per Dr. Epstein general surgery - Nepro trickle feeds on hold, diet management per general surgery. - IV Protonix. Started TPN 09/10/17 - ct abd/pelvis with PO contrast showing no abscess 09/19 - ROSSI management per gen surgery. FEN: Hypernatremia Free water deficit Hypokalemia Hypomagnesemia - electrolyte replacement as needed. - TPN 75 ml/hr. D5W 42 ml/hr - Daily BMP : Acute kidney failure - improving. Contraction alkalosis - improving. - ATN most likely from severe septic shock. Had been improving, uptrend this morning. - Maintain Bedolla for accurate intake output HEME: Anemia secondary to acute blood loss - Platelet count normal. INR 1.2 - Hgb 5.7. Transfusing 3 units PRBC and will monitor Hgb q6 hours. 2 units FFP on hold. Was on Lovenox 60 q12 since 09/26. Now on hold. ID: Septic shock - resolved. Peritonitis HCAP with E Coli - resolved Leukocytosis. - Sputum culture 09/08 E Coli - Blood cultures, urine culture from 09/27 negative. - ID following, Dr. Enriquez. - Continue Zosyn. Temp max 100.3 overnight. Panculture. Broaden abx if clinical worsening/eo infection. ENDO: Diabetes mellitus Hypocalcemia - Insulin sliding scale, and IV insulin with TPN - Electrolyte replacement per protocol - Continue levemir 18 units subcut bid - po synthroid now that gut function improving. DVT GI prophylaxis - Teds SCDs - Pharmacological DVT prophylaxis - Protonix Lines: Right IJ line d/c'd 09/20, New left SCV CVL placed 09/20 #11. Replace if recurring fever. Discussed with Dr. Hernandez, obtained CT abd/pelvis. Patient is critically ill with recent active bleeding and acute symptomatic blood loss anemia. Currently hypotension is responsive to transfusion. She is at high risk for further deterioration. Dr. Hernandez and Dr. Hair met with patient's after CT resulted. ROSSI drain is no longer draining and there is large hematoma present, clinically appears to have ongoing bleeding. Dr. Hernandez offered ex lap to however discussed that with patients current debility and poor healing potential her prognosis is poor. opted against surgery at this time, continuing medical management. desires full code at this time. Overall impression: Critically ill and deteriorating clinical condition. Critical Care 38 mins Jose Landin MD Oct 02, 2017 08:23
[2017-10-02] MEDS: DEXTROSE 5% IN WATE 1000ML INJ 1,000 ML IV SCH ×2 (08:54→13:00)
[2017-10-02] MEDS: SODIUM CHLORIDE 0.9% FLUSH 10 ML FLUSH IV FLUSH SCH ×2 (09:00→20:20)
[2017-10-02] MEDS: levETIRAcetam INJ 500 MG in SODIUM CHLORIDE 0.9% INJ 100 ML IV SCH ×2 (09:00→20:20)
[2017-10-02] MEDS: MODAFINIL 200 MG TAB PO SCH (09:00)
[2017-10-02] MEDS: INSULIN DETEMIR 100 UNITS/ML VIAL SQ SCH ×2 (09:00→20:48)
[2017-10-02] MEDS: ARTIFICIAL TEARS OPTH SOLN 15 ML BTL EACH EYE SCH ×3 (09:00→17:49)
[2017-10-02] MEDS: PANTOPRAZOLE SODIUM 40 MG VIAL IV PUSH SCH (09:00)
--- NOTE | 2017-10-02 09:38 | RADRPT ---
EXAM DATE/TIME: 10/01/2017 12:30 [facility] COMPARISON: No previous studies available for comparison. INDICATIONS : Abdominal abscess. DEVICE(S): 1.) 10 Fr Skater 2.) 18 gauge Lawrence blunt needle Total volume of 800 cc of cloudy, yellow fluid was removed. Fluid was sent for laboratory ordered studies. MEDICAL HISTORY : Polymyalgia rheumatica. SURGICAL HISTORY : Gastric bypass. Cholecystectomy. ENCOUNTER: Initial ACUITY: 1 day PAIN SCORE: Non-responsive LOCATION: Right epigastric region. PROCEDURE: PROCEDURE : 1. CT guided drainage of the peritoneal drainage 2. Conscious sedation with continuous EKG and oximetry monitoring. The risks, benefits and alternatives to the procedure were explained and verbal and written consent w as obtained. Using automated exposure control and adjustment of the mA and/or kV according to patient size, radiation dose was kept as low as reasonably achievable to obtain optimal diagnostic quality i mages. The site was prepped in sterile fashion. Full sterile technique was used, including cap, ma sk, sterile gloves and gown and a large sterile sheet. Hand hygiene and 2% chlorhexidine and/or beta dine/alcohol prep was utilized per protocol for cutaneous antisepsis. The skin and subcutaneous tiss ues were infiltrated with local anesthetic solution. DICOM format image data is available electronic ally for review and comparison. Was called to reveal patient's CT scan and consider drainage of intraperitoneal collection. Patient r ecently underwent sleeve gastric reduction, developed a postoperative bowel obstruction and was subse quently bypassed with primary anastomosis. History of leakage from the anastomosis with placement of a ROSSI type drain. A few days ago, patient had a paroxysmal drop in hemoglobin and hematocrit. No furth er output from the ROSSI drain presumably due to regional thrombus occluding the drainage device. Repeat CT demonstrated a hyperdense collection in the mid lower abdomen. Based on the appearance and clinic al history, this is concerning for a mesenteric hematoma. As such, I did not feel it was prudent to p lace a drain in the new collection. In addition, it was very difficult to distinguish the collection from regional bowel. However, patient also had some fluid along the convexity of the liver and spleen tracking into the lesser sac of the stomach. This collection would be amenable to percutaneous drain age. Using CT guidance the prescribed site was localized. Drainage was performed using the prescribed cat heter The patient tolerated the procedure well and there were no complications. Conscious sedation was per formed with the prescribed dosages and duration as above in the presence of an independent trained ra diology nurse to assist in the monitoring of the patient. EKG and oximetry remained stable throughou t the procedure. The patient tolerated the procedure well and there were no complications. The patient was sent to pos t anesthesia recovery in stable condition. CONCLUSION: Uncomplicated CT guided drainage. Ross Flaherty MD on October 02, 2017 at 9:19 Board Certified Radiologist. This report was verified electronically.
--- NOTE | 2017-10-02 11:26 | HHI.IDPN ---
Note Infectious Disease Note Patient is sedated. Afebrile. Has eyes open and appears to be tracking but not voluntarily responding. Drainage catheter placed by radiology into abdomen after draining large fluid collection in abdomen. Has serous drainage. Presented to the emergency department on September 07 and was diagnosed with small bowel obstruction. She was taken to surgery and was found to have necrosed, perforated small bowel and she underwent small bowel resection. The patient previously had elective gastric sleeve on 08/22/2017. After that she was having nausea and vomiting and then difficulty passing stools. During the surgical procedure the patient had some purulent material within the abdomen. PAST MEDICAL HISTORY 1. Rheumatoid arthritis 2. Hypothyroidism 3. Gout 4. Depression 5. Seizure disorder 6. Attention deficit disorder 7. Cholecystectomy 8. Tonsillectomy 9. Ankle arthroplasty 10. Gastric sleeve. 08/22/17. ALLERGIES PROPOXYPHENE DARVOCET ADHESIVE TAPES ANTIBIOTICS Zosyn. Vancomycin. Micafungin. OBJECTIVE: Vital Signs Date Time Temp Pulse Resp B/P (MAP) Pulse Ox O2 Delivery O2 Flow Rate FiO2 10/02/17 09:58 97 30 10/02/17 09:58 30 10/02/17 06:00 96 10/02/17 05:08 100 30 10/02/17 04:00 30 10/02/17 04:00 99.4 97 30 100/56 (71) 98 10/02/17 04:00 97 10/02/17 02:00 94 10/02/17 00:04 97 30 10/02/17 00:00 98.0 95 24 103/71 (82) 96 10/02/17 00:00 95 10/02/17 00:00 30 10/01/17 22:00 92 10/01/17 20:44 97 30 10/01/17 20:01 99.0 96 18 112/58 98 10/01/17 20:00 93 10/01/17 20:00 98.0 96 18 112/58 (76) 98 10/01/17 20:00 30 10/01/17 18:00 97 10/01/17 17:04 97.8 97 28 111/55 99 10/01/17 16:19 99 30 10/01/17 16:00 97.4 89 22 97/47 (64) 98 10/01/17 16:00 30 10/01/17 16:00 95 10/01/17 15:19 94 17 100/51 100 10/01/17 15:01 97.8 96 19 100/51 100 10/01/17 14:00 91 10/01/17 12:20 100 100 10/01/17 12:00 30 10/01/17 12:00 100.0 93 16 159/73 (101) 10/01/17 12:00 93 10/01/17 11:57 98 30 Laboratory Tests Test 09/30/17 13:12 09/30/17 22:23 10/01/17 04:04 10/01/17 13:45 Hemoglobin 6.6 GM/DL 6.9 GM/DL 7.3 GM/DL 6.9 GM/DL Hematocrit 20.0 % 21.2 % 21.2 % 19.3 % White Blood Count 11.4 TH/MM3 Red Blood Count 2.45 MIL/MM3 Mean Corpuscular Volume 86.4 FL Mean Corpuscular Hemoglobin 29.9 PG Mean Corpuscular Hemoglobin Concent 34.6 % Red Cell Distribution Width 15.2 % Platelet Count 207 TH/MM3 Mean Platelet Volume 8.9 FL Neutrophils (%) (Auto) 76.7 % Lymphocytes (%) (Auto) 14.3 % Monocytes (%) (Auto) 8.4 % Eosinophils (%) (Auto) 0.2 % Basophils (%) (Auto) 0.4 % Neutrophils # (Auto) 8.7 TH/MM3 Lymphocytes # (Auto) 1.6 TH/MM3 Monocytes # (Auto) 1.0 TH/MM3 Eosinophils # (Auto) 0.0 TH/MM3 Basophils # (Auto) 0.0 TH/MM3 CBC Comment DIFF FINAL Differential Comment Test 10/01/17 21:18 10/02/17 03:58 Hemoglobin 8.2 GM/DL 8.1 GM/DL Hematocrit 24.0 % 23.9 % Laboratory Tests Test 10/01/17 04:04 10/02/17 03:58 Blood Urea Nitrogen 121 MG/DL 115 MG/DL Creatinine 2.12 MG/DL 2.33 MG/DL Random Glucose 128 MG/DL 140 MG/DL Calcium Level 8.6 MG/DL 8.9 MG/DL Sodium Level 151 MEQ/L 151 MEQ/L Potassium Level 3.9 MEQ/L 3.8 MEQ/L Chloride Level 119 MEQ/L 118 MEQ/L Carbon Dioxide Level 19.8 MEQ/L 20.6 MEQ/L Anion Gap 12 MEQ/L 12 MEQ/L Estimat Glomerular Filtration Rate 24 ML/MIN 21 ML/MIN Microbiology Date/Time Source Procedure Growth Status 09/30/17 19:06 Blood Peripheral Aerobic Blood Culture - Preliminary NO GROWTH IN 2 DAYS Resulted 09/30/17 19:06 Blood Peripheral Anaerobic Blood Culture - Preliminary NO GROWTH IN 2 DAYS Resulted 09/30/17 14:00 Blood Peripheral Aerobic Blood Culture - Preliminary NO GROWTH IN 2 DAYS Resulted 09/30/17 14:00 Blood Peripheral Anaerobic Blood Culture - Preliminary NO GROWTH IN 2 DAYS Resulted 10/01/17 13:00 Fluid Peritoneal Fluid Gram Stain - Final Resulted 10/01/17 13:00 Fluid Peritoneal Fluid Body Fluid Culture Pending Resulted 09/30/17 10:45 Sputum Endotracheal Gram Stain - Final Complete 09/30/17 10:45 Sputum Endotracheal Sputum Culture - Final HEAVY GROWTH NORMAL RESPIRATORY MANUEL Complete 09/30/17 10:45 Urine Catheterized Urine Urine Culture - Final NO GROWTH IN 48 HOURS. Complete IMAGING: Chest X-Ray 10/01/17 0600 Signed Impressions: Service Date/Time: Sunday, October 01, 2017 05:05 - CONCLUSION: Decreasing bilateral consolidation and effusions, now mild/very small. Damian Sauceda MD Abdomen/Pelvis CT 09/30/17 0000 Signed Impressions: Service Date/Time: Saturday, September 30, 2017 11:53 - CONCLUSION: 1. There is a complex mesenteric collection containing high and low density fluid as well as scattered air bubbles in or 14.5 x 8.8 x 12.0 cm. This likely represents a walled-off perforation with possible formation of abscess. Clinical correlation is recommended. 2. Several mildly dilated loops of small bowel raising the possibility of partial small bowel traction. Clinical correlation is recommended. 3. Moderate amount of ascites within the upper abdomen. 4. Uncomplicated colonic diverticulosis. 5. Small left pleural effusion. 6. Bibasilar atelectasis. 7. Anasarca throughout the abdominal wall. Darion Oates MD Chest X-Ray 09/29/17 0000 Signed Impressions: Service Date/Time: Friday, September 29, 2017 11:31 - CONCLUSION: 1. Cardiomegaly with bilateral effusions and interstitial prominence consistent with congestive failure. 2. The tip of the endotracheal tube is not visualized due to technique. If further assessment of this is desired repeat exam could be attempted. 3. Appearance of the parenchyma has worsened compared to prior. Haris Mcfarland MD Chest X-Ray 09/19/17 0400 Signed Impressions: Service Date/Time: Tuesday, September 19, 2017 04:10 - CONCLUSION: 1. Interval improvement in bilateral pulmonary infiltrates. 2. The patient remains intubated. Yuri Holt MD Head CT 09/19/17 0000 Signed Impressions: Service Date/Time: Tuesday, September 19, 2017 15:54 - CONCLUSION: 1. No evidence of acute intracranial pathology. No masses are identified. 2. Bilateral mastoiditis Jens John MD Chest X-Ray 09/19/17 0000 Signed Impressions: Service Date/Time: Tuesday, September 19, 2017 09:44 - CONCLUSION: Increasing bibasilar parenchymal changes worse on the right. Raghu Mcfarland MD FACR Chest CT 09/19/17 0000 Signed Impressions: Service Date/Time: Tuesday, September 19, 2017 15:59 - CONCLUSION: 1. Multifocal areas of consolidation greatest in right lower lobe most characteristic of pneumonia. 2. Abnormal soft tissue density in the right axilla contiguous with abnormal soft tissue density and inflammatory change extending along the right lateral chest wall. This could represent hemorrhage and/or inflammatory change. There are no gas bubbles are infection cannot be excluded. 3. There is fluid again noted in the upper abdomen. 4. Moderate elevation of the right hemidiaphragm. Yuri Holt MD Abdomen/Pelvis CT 09/19/17 0000 Signed Impressions: Service Date/Time: Tuesday, September 19, 2017 15:59 - CONCLUSION: 1. There is no evidence of abscess. 2. Mild ascites Jens John MD PHYSICAL EXAM: GENERAL: No acute distress. HEENT: Head atraumatic, No icterus. No conjunctival erythema. NECK: Supple. No adenopathy. LUNGS: Bibasilar rhonchi. CARDIAC: Regular rate and rhythm. no murmurs, rubs or gallops. ABDOMEN: Obese. Soft. No tenderness appreciated. R. Arnie drain has bloody drainage. Abdominal accordion drain has serous drainage. EXTREMITIES: No clubbing, cyanosis. 1+ edema at the feet. NEURO: Sedated. SKIN: No rash. Warm and moist. IMPRESSION 1. Septic shock. 2. Post exploratory laparotomy and small bowel resection along with lysis of adhesions for small bowel perforation. 3. Peritonitis due to due to small bowel perforation. 4. Acute respiratory failure. Now has tracheostomy. 5. VAP gram negative. E. coli. 6. Acute kidney disease. ? sepsis related. ? medication. 7. Leukocytosis. WBC now normal. 8. Mastoiditis on CT scan. 9. Abnormal CXR. 10. Abdominal fluid collection. ? abscess. RECOMMENDATIONS 1. Continue Zosyn 2. Continue Vancomycin. 3. continue Micafungin. 4. Monitor culture. 5. Monitor temp. Discussed with RN. Jus Enriquez MD Oct 02, 2017 11:26
[2017-10-02] MEDS: MICAFUNGIN INJ 100 MG in SODIUM CHLORIDE 0.9% INJ 100 ML IV SCH (14:12)
--- NOTE | 2017-10-02 16:56 | HHI.PR ---
Subjective Subjective Notes Currently tolerating CPAP Appears to track, not following commands Objective Vitals/I&O Vital Signs Date Time Temp Pulse Resp B/P (MAP) Pulse Ox O2 Delivery O2 Flow Rate FiO2 10/02/17 14:00 84 10/02/17 12:00 30 10/02/17 09:58 97 10/02/17 04:00 99.4 30 100/56 (71) Labs Laboratory Tests Test 10/01/17 21:18 10/02/17 03:58 Hemoglobin 8.2 8.1 Hematocrit 24.0 23.9 Blood Urea Nitrogen 115 Creatinine 2.33 Random Glucose 140 Calcium Level 8.9 Sodium Level 151 Potassium Level 3.8 Chloride Level 118 Carbon Dioxide Level 20.6 Anion Gap 12 Estimat Glomerular Filtration Rate 21 Random Vancomycin Level 38.3 Date/Time Source Procedure Growth Status 09/30/17 19:06 Blood Peripheral Aerobic Blood Culture - Preliminary NO GROWTH IN 2 DAYS Resulted 09/30/17 19:06 Blood Peripheral Anaerobic Blood Culture - Preliminary NO GROWTH IN 2 DAYS Resulted 10/01/17 13:00 Fluid Peritoneal Fluid Gram Stain - Final Resulted 10/01/17 13:00 Fluid Peritoneal Fluid Body Fluid Culture - Preliminary NO GROWTH IN 24 HOURS. Resulted 09/30/17 10:45 Sputum Endotracheal Gram Stain - Final Complete 09/30/17 10:45 Sputum Endotracheal Sputum Culture - Final HEAVY GROWTH NORMAL RESPIRATORY MANUEL Complete 09/30/17 10:45 Urine Catheterized Urine Urine Culture - Final NO GROWTH IN 48 HOURS. Complete 09/15/17 08:31 Wound Abdomen Gram Stain - Final Complete 09/15/17 08:31 Wound Abdomen Wound Culture - Final NO GROWTH IN 72 HRS.--AEROBICALLY OR ... Complete Radiology Last Impressions Abdomen/Pelvis CT 09/30/17 0000 Signed Impressions: Service Date/Time: Saturday, September 30, 2017 11:53 - CONCLUSION: 1. There is a complex mesenteric collection containing high and low density fluid as well as scattered air bubbles in or 14.5 x 8.8 x 12.0 cm. This likely represents a walled-off perforation with possible formation of abscess. Clinical correlation is recommended. 2. Several mildly dilated loops of small bowel raising the possibility of partial small bowel traction. Clinical correlation is recommended. 3. Moderate amount of ascites within the upper abdomen. 4. Uncomplicated colonic diverticulosis. 5. Small left pleural effusion. 6. Bibasilar atelectasis. 7. Anasarca throughout the abdominal wall. Darion Oates MD Chest X-Ray 09/29/17 0000 Signed Impressions: Service Date/Time: Friday, September 29, 2017 11:31 - CONCLUSION: 1. Cardiomegaly with bilateral effusions and interstitial prominence consistent with congestive failure. 2. The tip of the endotracheal tube is not visualized due to technique. If further assessment of this is desired repeat exam could be attempted. 3. Appearance of the parenchyma has worsened compared to prior. Haris Mcfarland MD Head CT 09/19/17 0000 Signed Impressions: Service Date/Time: Tuesday, September 19, 2017 15:54 - CONCLUSION: 1. No evidence of acute intracranial pathology. No masses are identified. 2. Bilateral mastoiditis Jens John MD Chest CT 09/19/17 0000 Signed Impressions: Service Date/Time: Tuesday, September 19, 2017 15:59 - CONCLUSION: 1. Multifocal areas of consolidation greatest in right lower lobe most characteristic of pneumonia. 2. Abnormal soft tissue density in the right axilla contiguous with abnormal soft tissue density and inflammatory change extending along the right lateral chest wall. This could represent hemorrhage and/or inflammatory change. There are no gas bubbles are infection cannot be excluded. 3. There is fluid again noted in the upper abdomen. 4. Moderate elevation of the right hemidiaphragm. Yuri Holt MD Abdomen Fluoroscopy 09/08/17 0000 Signed Impressions: Service Date/Time: Friday, September 08, 2017 12:04 - CONCLUSION: Uncomplicated nasogastric tube placement as above. Tae Archuleta Jr., MD Last Impressions Chest X-Ray 09/23/17 0600 Signed Impressions: Service Date/Time: Saturday, September 23, 2017 04:54 - CONCLUSION: No significant change has occurred. Shailesh Bernal MD Head CT 09/19/17 0000 Signed Impressions: Service Date/Time: Tuesday, September 19, 2017 15:54 - CONCLUSION: 1. No evidence of acute intracranial pathology. No masses are identified. 2. Bilateral mastoiditis Jens John MD Chest CT 09/19/17 0000 Signed Impressions: Service Date/Time: Tuesday, September 19, 2017 15:59 - CONCLUSION: 1. Multifocal areas of consolidation greatest in right lower lobe most characteristic of pneumonia. 2. Abnormal soft tissue density in the right axilla contiguous with abnormal soft tissue density and inflammatory change extending along the right lateral chest wall. This could represent hemorrhage and/or inflammatory change. There are no gas bubbles are infection cannot be excluded. 3. There is fluid again noted in the upper abdomen. 4. Moderate elevation of the right hemidiaphragm. Yuri Holt MD Abdomen/Pelvis CT 09/19/17 0000 Signed Impressions: Service Date/Time: Tuesday, September 19, 2017 15:59 - CONCLUSION: 1. There is no evidence of abscess. 2. Mild ascites Jens John MD Abdomen Fluoroscopy 09/08/17 0000 Signed Impressions: Service Date/Time: Friday, September 08, 2017 12:04 - CONCLUSION: Uncomplicated nasogastric tube placement as above. Tae Archuleta Jr., MD Cardiovascular: Regular Lungs: Rhonchi Abdomen: Other (absent bowel sounds) Extremities: Perfused Wound Wound : Wound Location: Abdomen (RLQ ROSSI with large amount of bileous drainage. Midline drain placed by IR currently has small amount of yellow drainage. Prior surgical incisions dehisced and packed, poor wound healing) A/P Assessment and Plan 61yo F with small bowel perforation and peritonitis -H&H stable for now, though not improving despite recent transfusion -Continue to monitor drain output -Patient is a poor surgical candidate, will continue with medical management per family's wishes D/W RN and family at bedside Flower Gomez Oct 02, 2017 16:56
[2017-10-02] MEDS: MULTIVITAMIN INJ 10 ML, FOLIC ACID INJ 1 MG, INSULIN HUMAN REGULAR INJ 40 UNITS in AMIN... IV-CENTRAL SCH (20:40)
[2017-10-02 20:49] LABS: HEMATOCRIT 23.4 % (35.0-46.0); REVIEW FLAG FINAL
[2017-10-03] VITALS (18 sets, daily range): BP systolic 97–136; BP diastolic 52–63; PULSE 76–107; RESP 18–30; TEMP 98.4–100.6; O2SAT 95–98
[2017-10-03] MEDS: ALBUMIN 25% INJ 100 ML IV SCH ×3 (00:12→14:50)
[2017-10-03] MEDS: INSULIN ASPART SUPPLEMENTAL SCALE SQ SCH ×4 (00:12→18:00)
[2017-10-03] MEDS: PIPERACIL-TAZO 3.375 GM PREMIX 50 ML IV SCH ×4 (00:13→19:52)
[2017-10-03] MEDS: LEVOTHYROXINE SODIUM 50 MCG TAB PO SCH (05:25)
[2017-10-03 06:24] LABS: HEMATOCRIT 24.6 % (35.0-46.0); REVIEW FLAG FINAL
[2017-10-03 06:59] LABS: BICARBONATE 19.3 MEQ/L (21.0-32.0); POTASSIUM 3.8 MEQ/L (3.5-5.1)
[2017-10-03] MEDS: MODAFINIL 200 MG TAB PO SCH ×2 (09:00→09:37)
[2017-10-03] MEDS: levETIRAcetam INJ 500 MG in SODIUM CHLORIDE 0.9% INJ 100 ML IV SCH ×2 (09:37→21:35)
[2017-10-03] MEDS: INSULIN DETEMIR 100 UNITS/ML VIAL SQ SCH ×2 (09:37→21:36)
[2017-10-03] MEDS: PANTOPRAZOLE SODIUM 40 MG VIAL IV PUSH SCH (09:37)
[2017-10-03] MEDS: SODIUM CHLORIDE 0.9% FLUSH 10 ML FLUSH IV FLUSH SCH ×2 (09:37→21:35)
[2017-10-03] MEDS: ARTIFICIAL TEARS OPTH SOLN 15 ML BTL EACH EYE SCH ×3 (09:38→19:19)
[2017-10-03] MEDS: CHLORHEXIDINE 0.12% (ORAL KIT) 15 ML CUP MT SCH ×2 (09:38→21:36)
[2017-10-03] MEDS: DEXTROSE 5% IN WATE 1000ML INJ 1,000 ML IV SCH (13:30)
[2017-10-03] MEDS: MICAFUNGIN INJ 100 MG in SODIUM CHLORIDE 0.9% INJ 100 ML IV SCH (14:24)
[2017-10-03 15:43] LABS: HEMATOCRIT 24.4 % (35.0-46.0); REVIEW FLAG FINAL
[2017-10-03] MEDS ORDERED: PHARMACY ORDERED LAB ONE (15:45)
--- NOTE | 2017-10-03 16:28 | HHI.CCPN ---
Subjective Remarks/Hospital Course Note for 09/28/17: 61-year-old morbidly obese female presents, patient of Dr. Epstein, status post gastric sleeve 08-22-17 now presents with nonbloody emesis and unable to have a bowel movement for a couple days. She states to get that bowel movement she had a use a glycerin suppository and it was just loose. He was taken emergently to operating room and was found to have a small bowel ischemia. She underwent laparoscopic small bowel resection by Dr. Epstein and is postoperatively admitted to critical care unit SUBJ 09/09/17: Remains very critically ill. Profound septic shock requiring Levophed at 40 mcg/m, Des-Synephrine at 500 mcg/m, vasopressin at 0.04 international units, and to be demand 5 g per KG per minute. Urine output 150 mL overnight. Maintaining oxygen saturation. A.m. labs are pending at this time. Surprisingly patient is still mentating able to communicate. Remains on IV fentanyl infusion for pain control. Operative report is pending at this time. Received total of 9 L of crystalloid postoperatively. Receiving 2 units of PRBC. I will replace calcium. Lactic acid 3.5 at 4 AM 09/10: Critically ill but stable. Levophed down to 12 mcg/min, vasopressin at 0.04 IU. Uo 650 ml in 24 hours, bilateral abdominal drains with 1 L output. Right drain had greenish output overnight and now serosanguineous. D/ W Dr Epstein- he confirms perforation and gross contamination 09/11: Remains critically. FiO2 requirement up to 60%, I have increased PEEP to 10. CXR consistent with ARDS versus fluid overload. Creatinine increased to 1.24. Urine output 600 ml in 24 hours. CVP 18-20. Start IV Bumex 1 mg every 12 hours with additional 1 mg dose now. Levophed at 1 mcg/min, vasopressin at 0.04 IU 09/12: remains critically ill but stable to improving. SBP 130-140 on vasopressin will DC vasopressin. Chest x-ray shows bilateral pulmonary edema, but oxygenation has improved. Stable on 50% and PEEP of 10. Creatinine has worsened to 1.67 but urine output 1.5 L in 24 hours with Bumex. CVP remains about 20. Will increase Bumex to 1 mg every 8 hours and give additional 1 mg now. Closely monitor creatinine. 09/13: Weaning off vasopressors. SHEA persists. CXR with diffuse infiltrates , will switch modes for better recruitment hopefully. 09/14: Gas exchange improved on APRV. Renal function deteriorating. Remains fluid overloaded. 09/15: Gas exchange improved but renal function continues to deteriorate. Continue APRV - bases struggle for domain. 09/16: remains fairly encephalopathic, likely hypoactive delirium. renal function still worse today, although ? peaked?. continue APRV: body habitus would make de-recruitment almost certain if we switch to conventional mode of ventilation. still diuresing well. 09/17: creatinine continues to worsen despite adequate diuresis. BP lower today. will hold lasix drip. off all sedation x 12h and still remains encephalopathic, not following commands. may need renal replacement therapy at some point. severe electrolyte derrangements due to diuresis, and free water deficit. 09/18: Cr slightly downtrended. mental status still poor. long discussion with family and multiple members updated. remains off sedation. continuing to hold diuresis. 09/19: Cr still slightly downtrended. surgery concerned possible tube feeds in ROSSI drain after starting trickle TF yesterday. also, patient had more labored breathing on vent. etco2 70s, worsening hypercarbia and peak pressures. changed vent modes temporarily, increased minute ventilation, improved pco2, but then patient became acutely hypotensive. stat CXR ordered. clinically worse today. in addition, still no improvements in mental status. CT abd/pelvis with PO contrast ordered as well as CT brain. 09/20: CXR clear, will convert back to spontaneous ventilation to avoid CO2 retention. Marked azotemia, likely contributing to obtundation. BUN > 130. 09/21: Oxygenation remains improved. Peripheral edema resolving. Azotemia persists. BUN > 140 today. 09/22: Slightly improving enough renal functions. H&H critical, no signs of active bleeding, more likely iatrogenic due to frequent blood draws and dilutional. 09/23: s/p trach in OR today. hgb improved. renal function improving. organs are stable enough for transfer to LTAC. needs slow wean with lots of pulmonary rehab. 09/24: still putting out 300cc/24h out of right ROSSI, with bile. mental status improving, slowly. 09/25: Improved neurological function. Controlled fistula. 09/26: Remains on mechanical ventilation via tracheostomy. Daily C Pap trials ongoing. On TPN. 09/27: No leukocytosis and fistula appears well controlled. LTAC will be good transfer for ongoing vent weaning. 09/28: Low grade fever but no leukocytosis. Stable hemodynamics. Abdomen benign. All cultures NG. 09/29: Tolerating C Pap trials. Chest x-ray shows bilateral effusions. Initiating diuresis mobilize fluid. More awake, follows commands however extremely weak and extremities. Remains on TPN. Subjective: 09/30 Bleeding noted in ROSSI overnight, Hgb 5.7. Three units PRBC ordered and 1 unit infusing when am labs drawn in which Hgb was 5.7. Currently receiving 3rd unit of PRBC. Dr. Hernandez updated overnight. Now ROSSI no longer having output, obtaining CT abd/pelvis. Tachypneic, tachycardic in 108, BP 96/53. No BM. 10/01: Back on vent support. Required several transfusions over past 24 hours. Drainage minimal. 10/02: Percutaneous abdominal drained placed in IR 10/01. Hgb stable since immediately after. Azotemia developing. Lung volumes reduced on CXR. 10/03: Azotemia persists. Continue free water. Objective Vital Signs Date Time Temp Pulse Resp B/P (MAP) Pulse Ox O2 Delivery O2 Flow Rate FiO2 10/03/17 12:27 98 30 10/03/17 09:02 Ventilator 10/03/17 06:00 88 10/03/17 04:00 99.0 27 134/62 (86) Intake and Output 10/03/17 10/03/17 10/04/17 08:00 16:00 00:00 Intake Total 200 ml Output Total 2370 ml Balance -2170 ml Result Diagram: 10/03/17 1413 10/03/17 0426 Imaging Last 48 hours Impressions Chest X-Ray 09/29/17 0000 Signed Impressions: Service Date/Time: Friday, September 29, 2017 11:31 - CONCLUSION: 1. Cardiomegaly with bilateral effusions and interstitial prominence consistent with congestive failure. 2. The tip of the endotracheal tube is not visualized due to technique. If further assessment of this is desired repeat exam could be attempted. 3. Appearance of the parenchyma has worsened compared to prior. Haris Mcfarland MD Objective Remarks GENERAL: morbidly obese, pale and critically ill appearing female SKIN: Dry. Serous clear blisters in right lower abdomen. HEAD: Normocephalic. EYES: Pupils 2 mm and sluggishly reactive. Anicteric. Pale conjunctiva NECK: Trachea midline. Proximal XL T trach in place, no exudate or bleeding CARDIOVASCULAR: Tachycardic, regular, sinus tach on the monitor. Heart sounds distant. No murmur rub or gallop appreciated. JVD difficult to assess due to body habitus. RESPIRATORY: Tachypneic, equal breath sounds bilaterally, persistent scattered rhonchi. PRVC PEEP 10. GASTROINTESTINAL: Abdomen moderately distended, obese, abdominal wall edema/ anasarca present with significant dependent edema RLQ. ROSSI in RLQ with minimal bloody output and clots. Bag in place around ROSSI site, no drainage currently ( reportedly previously bilious appearing drainage). MUSCULOSKELETAL: No cyanosis. 2+ edema, diffuse. NEURO EXAM: Eyes open spontaneously , makes eye contact, +/- nod to voice. Very weak movement of fingers and toes to noxious stimuli. A/P Assessment and Plan Assessment: 61yF s/p gastric bypass complicated by small bowel obstruction, intra-abdominal sepsis, persistent respiratory failure, volume overload. remains off pathway. s/p trach. Now with acute blood loss anemia, bleeding from ROSSI stopped. New drain with old blood, no fresh bleeding.. A/P: NEURO: Seizure disorder Metabolic encephalopathy Hypoactive Delirium - Currently off all sedation - Keppra 500 IV q12. - fentanyl prn for positioning. - haldol for agitation - has been on provigil for wakefulness. RESP: Acute hypoxemic respiratory failure - persistent, stable. ARDS HCAP with E Coli - Continue mechanical ventilation - Vent bundle - DuoNeb every 6 hours scheduled and when necessary - CXR 09/29 - Bilateral effusions, bilateral perihilar opacities. - Tracheostomy by Dr. Preciado 09/23 - Slow vent weaning, will eventually need LTAC when stabilized. - Tolerating SBTs very well. CVS: Septic shock-resolved. Lactic acidosis - resolved. Recurrent Hypotension, secondary to acute blood loss - s/p Aggressive IV fluid resuscitation, postop received 9 L of normal saline, 2 units of PRBC - s/p hydrocortisone taper completed 09/18. - Diuresis with lasix initiated 09/29. Will hold currently due to active bleeding, will use intermittently following transfusion when intravascularly resuscitated. GI: Small bowel ischemia/Perforation Peritonitis Bile leak Bleeding - S/P Laparoscopic SBR for gangrenous small bowel - Post op surgical management per Dr. Epstein general surgery - Nepro trickle feeds on hold, diet management per general surgery. - IV Protonix. Started TPN 09/10/17 - ct abd/pelvis with PO contrast showing no abscess 09/19 - ROSSI management per gen surgery. FEN: Hypernatremia Free water deficit Hypokalemia Hypomagnesemia - electrolyte replacement as needed. - TPN 75 ml/hr. D5W 42 ml/hr - Daily BMP : Acute kidney failure - improving. Contraction alkalosis - improving. - ATN most likely from severe septic shock. Had been improving, uptrend this morning. - Maintain Bed[place] for accurate intake output HEME: Anemia secondary to acute blood loss - Platelet count normal. INR 1.2 - Hgb 5.7. Transfusing 3 units PRBC and will monitor Hgb q6 hours. 2 units FFP on hold. Was on Lovenox 60 q12 since 09/26. Now on hold. ID: Septic shock - resolved. Peritonitis HCAP with E Coli - resolved Leukocytosis. - Sputum culture 09/08 E Coli - Blood cultures, urine culture from 09/27 negative. - ID following, Dr. Enriquez. - Continue Zosyn. Panculture. Broaden abx if clinical worsening/eo infection. ENDO: Diabetes mellitus Hypocalcemia - Insulin sliding scale, and IV insulin with TPN - Electrolyte replacement per protocol - Continue levemir 18 units subcut bid - po synthroid now that gut function improving. DVT GI prophylaxis - Teds SCDs - Pharmacological DVT prophylaxis - Protonix Lines: Right IJ line d/c'd 09/20, New left SCV CVL placed 09/20 #11. Replace if recurring fever. Discussed with Dr. Hernandez, obtained CT abd/pelvis. Patient is critically ill with recent active bleeding and acute symptomatic blood loss anemia. Currently hypotension is responsive to transfusion. She is at high risk for further deterioration. Dr. Hernandez and Dr. Hair met with patient's after CT resulted. ROSSI drain is no longer draining and there is large hematoma present, clinically appears to have ongoing bleeding. Dr. Hernandez offered ex lap to however discussed that with patients current debility and poor healing potential her prognosis is poor. opted against surgery at this time, continuing medical management. desires full code at this time. Overall impression: Critically ill but stabilizing now. Jose Landin MD Oct 03, 2017 16:28
--- NOTE | 2017-10-03 17:47 | PD.PROCEDR ---
Procedure Note Procedure DX: Severe Sepsis OP: Insertion Right Subclavian Vein Central Line ([id number]) Procedure: Time out. Right chest prepped and draped. Right subclavian vein cannulated and wire advanced. Catheter passed over wire to 19 cm. Lumens aspirated and flushed. Dressing applied. CXR ordered, will review. Jose Landin MD Oct 03, 2017 17:47
[2017-10-03] MEDS: DEXTROSE 10% INJ 500 ML IV SCH (18:00)
--- NOTE | 2017-10-03 19:19 | RADRPT ---
EXAM DATE/TIME: 10/03/2017 18:06 [facility] COMPARISON: CHEST SINGLE AP, October 01, 2017, 5:05. INDICATIONS : Position of right central line. MEDICAL HISTORY : Rheumatoid arthritis. Seizures. SURGICAL HISTORY : Cholecystectomy. gastric sleeve. ENCOUNTER: Subsequent ACUITY: 3 weeks PAIN SCORE: Non-responsive. LOCATION: Bilateral chest FINDINGS: Interval placement of right subclavian central line with tip projected in the right atrium. Left sub clavian central line tip projects at the origin of the superior vena cava. Tracheostomy and gastric tube in place. Increasing hazy opacities in the mid and lower lung with air bronchograms and consoli dation, similar in appearance to prior examination when taking into account the rotation on the prese nt examination. No evidence of pneumothorax. CONCLUSION: Right subclavian catheter tip in the right atrium. No definite evidence of pneumothorax. Tae Roblero MD on October 03, 2017 at 19:15 Board Certified Radiologist. This report was verified electronically.
[2017-10-03] MEDS: RESP: ALBUTEROL 2.5 MG/IPRATROPIUM 0.5 MG NEB (PRN) NEB (19:54)
[2017-10-03 21:05] LABS: HEMATOCRIT 23.3 % (35.0-46.0); REVIEW FLAG FINAL
[2017-10-03] MEDS: MULTIVITAMIN INJ 10 ML, FOLIC ACID INJ 1 MG, INSULIN HUMAN REGULAR INJ 40 UNITS in AMIN... IV-CENTRAL SCH (21:36)
--- NOTE | 2017-10-03 22:12 | HHI.PR ---
Subjective Subjective Notes Remains clinically the same with some questionable tracking Objective Vitals/I&O Vital Signs Date Time Temp Pulse Resp B/P (MAP) Pulse Ox O2 Delivery O2 Flow Rate FiO2 10/03/17 19:49 96 30 10/03/17 18:00 107 10/03/17 16:00 100.3 20 100/53 (69) 10/03/17 09:02 Ventilator Labs Laboratory Tests Test 10/03/17 04:26 10/03/17 14:13 10/03/17 20:22 Hemoglobin 8.3 8.2 8.0 Hematocrit 24.6 24.4 23.3 Blood Urea Nitrogen 133 Creatinine 2.33 Random Glucose 151 Calcium Level 8.9 Sodium Level 149 Potassium Level 3.8 Chloride Level 117 Carbon Dioxide Level 19.3 Anion Gap 13 Estimat Glomerular Filtration Rate 21 Date/Time Source Procedure Growth Status 09/30/17 19:06 Blood Peripheral Aerobic Blood Culture - Preliminary NO GROWTH IN 3 DAYS Resulted 09/30/17 19:06 Blood Peripheral Anaerobic Blood Culture - Preliminary NO GROWTH IN 3 DAYS Resulted 10/01/17 13:00 Fluid Peritoneal Fluid Gram Stain - Final Resulted 10/01/17 13:00 Fluid Peritoneal Fluid Body Fluid Culture - Preliminary NO GROWTH IN 48 HOURS. Resulted 09/30/17 10:45 Sputum Endotracheal Gram Stain - Final Complete 09/30/17 10:45 Sputum Endotracheal Sputum Culture - Final HEAVY GROWTH NORMAL RESPIRATORY MANUEL Complete 09/30/17 10:45 Urine Catheterized Urine Urine Culture - Final NO GROWTH IN 48 HOURS. Complete 09/15/17 08:31 Wound Abdomen Gram Stain - Final Complete 09/15/17 08:31 Wound Abdomen Wound Culture - Final NO GROWTH IN 72 HRS.--AEROBICALLY OR ... Complete Radiology Last Impressions Abdomen/Pelvis CT 09/30/17 0000 Signed Impressions: Service Date/Time: Saturday, September 30, 2017 11:53 - CONCLUSION: 1. There is a complex mesenteric collection containing high and low density fluid as well as scattered air bubbles in or 14.5 x 8.8 x 12.0 cm. This likely represents a walled-off perforation with possible formation of abscess. Clinical correlation is recommended. 2. Several mildly dilated loops of small bowel raising the possibility of partial small bowel traction. Clinical correlation is recommended. 3. Moderate amount of ascites within the upper abdomen. 4. Uncomplicated colonic diverticulosis. 5. Small left pleural effusion. 6. Bibasilar atelectasis. 7. Anasarca throughout the abdominal wall. Darion Oates MD Chest X-Ray 09/29/17 0000 Signed Impressions: Service Date/Time: Friday, September 29, 2017 11:31 - CONCLUSION: 1. Cardiomegaly with bilateral effusions and interstitial prominence consistent with congestive failure. 2. The tip of the endotracheal tube is not visualized due to technique. If further assessment of this is desired repeat exam could be attempted. 3. Appearance of the parenchyma has worsened compared to prior. Haris Mcfarland MD Head CT 09/19/17 0000 Signed Impressions: Service Date/Time: Tuesday, September 19, 2017 15:54 - CONCLUSION: 1. No evidence of acute intracranial pathology. No masses are identified. 2. Bilateral mastoiditis Jens John MD Chest CT 09/19/17 0000 Signed Impressions: Service Date/Time: Tuesday, September 19, 2017 15:59 - CONCLUSION: 1. Multifocal areas of consolidation greatest in right lower lobe most characteristic of pneumonia. 2. Abnormal soft tissue density in the right axilla contiguous with abnormal soft tissue density and inflammatory change extending along the right lateral chest wall. This could represent hemorrhage and/or inflammatory change. There are no gas bubbles are infection cannot be excluded. 3. There is fluid again noted in the upper abdomen. 4. Moderate elevation of the right hemidiaphragm. Yuri Holt MD Abdomen Fluoroscopy 09/08/17 0000 Signed Impressions: Service Date/Time: Friday, September 08, 2017 12:04 - CONCLUSION: Uncomplicated nasogastric tube placement as above. Tae Archuleta Jr., MD Last Impressions Chest X-Ray 09/23/17 0600 Signed Impressions: Service Date/Time: Saturday, September 23, 2017 04:54 - CONCLUSION: No significant change has occurred. Shailesh Bernal MD Head CT 09/19/17 0000 Signed Impressions: Service Date/Time: Tuesday, September 19, 2017 15:54 - CONCLUSION: 1. No evidence of acute intracranial pathology. No masses are identified. 2. Bilateral mastoiditis Jens John MD Chest CT 09/19/17 0000 Signed Impressions: Service Date/Time: Tuesday, September 19, 2017 15:59 - CONCLUSION: 1. Multifocal areas of consolidation greatest in right lower lobe most characteristic of pneumonia. 2. Abnormal soft tissue density in the right axilla contiguous with abnormal soft tissue density and inflammatory change extending along the right lateral chest wall. This could represent hemorrhage and/or inflammatory change. There are no gas bubbles are infection cannot be excluded. 3. There is fluid again noted in the upper abdomen. 4. Moderate elevation of the right hemidiaphragm. Yuri Holt MD Abdomen/Pelvis CT 09/19/17 0000 Signed Impressions: Service Date/Time: Tuesday, September 19, 2017 15:59 - CONCLUSION: 1. There is no evidence of abscess. 2. Mild ascites Jens John MD Abdomen Fluoroscopy 09/08/17 0000 Signed Impressions: Service Date/Time: Friday, September 08, 2017 12:04 - CONCLUSION: Uncomplicated nasogastric tube placement as above. Tae Archuleta Jr., MD Cardiovascular: Regular Lungs: Rhonchi Abdomen: Other (absent bowel sounds) Extremities: Perfused Wound Wound : Wound Location: Abdomen (RLQ ROSSI with large amount of bileous and sanguineous drainage. Midline accordian drain with moderate amount of purulent drainage. Surgical incisions have dehisced and are packed with iodofrom) A/P Assessment and Plan 61yo F with small bowel perforation and peritonitis -H&H stable for now -Renal function trending back up, appreciate input from critical care -Keep ROSSI to low wall suction -Patient is a poor surgical candidate, will continue with medical management per family's wishes. Dr. Hernandez will speak with patient's to discuss palliative consult D/W RN and family at bedside Flower Gomez Oct 03, 2017 22:12
[2017-10-04] VITALS (18 sets, daily range): BP systolic 128–167; BP diastolic 61–75; PULSE 70–101; RESP 16–31; TEMP 100–100.4; O2SAT 95–99
[2017-10-04] MEDS: ALBUMIN 25% INJ 100 ML IV SCH ×3 (00:16→16:00)
[2017-10-04] MEDS: PIPERACIL-TAZO 3.375 GM PREMIX 50 ML IV SCH ×3 (00:16→12:00)
[2017-10-04] MEDS: DEXTROSE 5% IN WATE 1000ML INJ 1,000 ML IV SCH ×3 (01:17→18:28)
[2017-10-04 04:22] LABS: BICARBONATE 20.8 MEQ/L (21.0-32.0); POTASSIUM 3.6 MEQ/L (3.5-5.1)
[2017-10-04 04:35] LABS: HEMATOCRIT 24.3 % (35.0-46.0); REVIEW FLAG FINAL
[2017-10-04] MEDS: INSULIN ASPART SUPPLEMENTAL SCALE SQ SCH ×4 (05:58→17:47)
[2017-10-04] MEDS: LEVOTHYROXINE SODIUM 50 MCG TAB PO SCH (06:02)
[2017-10-04] MEDS: DEXTROSE 10% INJ 500 ML IV SCH ×2 (06:30→19:00)
[2017-10-04] MEDS: PANTOPRAZOLE SODIUM 40 MG VIAL IV PUSH SCH (08:24)
[2017-10-04] MEDS: INSULIN DETEMIR 100 UNITS/ML VIAL SQ SCH ×2 (08:25→21:19)
[2017-10-04] MEDS: levETIRAcetam INJ 500 MG in SODIUM CHLORIDE 0.9% INJ 100 ML IV SCH ×2 (08:26→21:19)
[2017-10-04] MEDS: ARTIFICIAL TEARS OPTH SOLN 15 ML BTL EACH EYE SCH ×3 (08:26→17:22)
[2017-10-04] MEDS: SODIUM CHLORIDE 0.9% FLUSH 10 ML FLUSH IV FLUSH SCH ×2 (08:26→21:19)
[2017-10-04] MEDS: CHLORHEXIDINE 0.12% (ORAL KIT) 15 ML CUP MT SCH ×2 (08:26→20:00)
--- NOTE | 2017-10-04 10:52 | HHI.CCPN ---
Subjective Remarks/Hospital Course Note for 09/28/17: 61-year-old morbidly obese female presents, patient of Dr. Epstein, status post gastric sleeve 08-22-17 now presents with nonbloody emesis and unable to have a bowel movement for a couple days. She states to get that bowel movement she had a use a glycerin suppository and it was just loose. He was taken emergently to operating room and was found to have a small bowel ischemia. She underwent laparoscopic small bowel resection by Dr. Epstein and is postoperatively admitted to critical care unit SUBJ 09/09/17: Remains very critically ill. Profound septic shock requiring Levophed at 40 mcg/m, Des-Synephrine at 500 mcg/m, vasopressin at 0.04 international units, and to be demand 5 g per KG per minute. Urine output 150 mL overnight. Maintaining oxygen saturation. A.m. labs are pending at this time. Surprisingly patient is still mentating able to communicate. Remains on IV fentanyl infusion for pain control. Operative report is pending at this time. Received total of 9 L of crystalloid postoperatively. Receiving 2 units of PRBC. I will replace calcium. Lactic acid 3.5 at 4 AM 09/10: Critically ill but stable. Levophed down to 12 mcg/min, vasopressin at 0.04 IU. Uo 650 ml in 24 hours, bilateral abdominal drains with 1 L output. Right drain had greenish output overnight and now serosanguineous. D/ W Dr Epstein- he confirms perforation and gross contamination 09/11: Remains critically. FiO2 requirement up to 60%, I have increased PEEP to 10. CXR consistent with ARDS versus fluid overload. Creatinine increased to 1.24. Urine output 600 ml in 24 hours. CVP 18-20. Start IV Bumex 1 mg every 12 hours with additional 1 mg dose now. Levophed at 1 mcg/min, vasopressin at 0.04 IU 09/12: remains critically ill but stable to improving. SBP 130-140 on vasopressin will DC vasopressin. Chest x-ray shows bilateral pulmonary edema, but oxygenation has improved. Stable on 50% and PEEP of 10. Creatinine has worsened to 1.67 but urine output 1.5 L in 24 hours with Bumex. CVP remains about 20. Will increase Bumex to 1 mg every 8 hours and give additional 1 mg now. Closely monitor creatinine. 09/13: Weaning off vasopressors. SHEA persists. CXR with diffuse infiltrates , will switch modes for better recruitment hopefully. 09/14: Gas exchange improved on APRV. Renal function deteriorating. Remains fluid overloaded. 09/15: Gas exchange improved but renal function continues to deteriorate. Continue APRV - bases struggle for domain. 09/16: remains fairly encephalopathic, likely hypoactive delirium. renal function still worse today, although ? peaked?. continue APRV: body habitus would make de-recruitment almost certain if we switch to conventional mode of ventilation. still diuresing well. 09/17: creatinine continues to worsen despite adequate diuresis. BP lower today. will hold lasix drip. off all sedation x 12h and still remains encephalopathic, not following commands. may need renal replacement therapy at some point. severe electrolyte derrangements due to diuresis, and free water deficit. 09/18: Cr slightly downtrended. mental status still poor. long discussion with family and multiple members updated. remains off sedation. continuing to hold diuresis. 09/19: Cr still slightly downtrended. surgery concerned possible tube feeds in ROSSI drain after starting trickle TF yesterday. also, patient had more labored breathing on vent. etco2 70s, worsening hypercarbia and peak pressures. changed vent modes temporarily, increased minute ventilation, improved pco2, but then patient became acutely hypotensive. stat CXR ordered. clinically worse today. in addition, still no improvements in mental status. CT abd/pelvis with PO contrast ordered as well as CT brain. 09/20: CXR clear, will convert back to spontaneous ventilation to avoid CO2 retention. Marked azotemia, likely contributing to obtundation. BUN > 130. 09/21: Oxygenation remains improved. Peripheral edema resolving. Azotemia persists. BUN > 140 today. 09/22: Slightly improving enough renal functions. H&H critical, no signs of active bleeding, more likely iatrogenic due to frequent blood draws and dilutional. 09/23: s/p trach in OR today. hgb improved. renal function improving. organs are stable enough for transfer to LTAC. needs slow wean with lots of pulmonary rehab. 09/24: still putting out 300cc/24h out of right ROSSI, with bile. mental status improving, slowly. 09/25: Improved neurological function. Controlled fistula. 09/26: Remains on mechanical ventilation via tracheostomy. Daily C Pap trials ongoing. On TPN. 09/27: No leukocytosis and fistula appears well controlled. LTAC will be good transfer for ongoing vent weaning. 09/28: Low grade fever but no leukocytosis. Stable hemodynamics. Abdomen benign. All cultures NG. 09/29: Tolerating C Pap trials. Chest x-ray shows bilateral effusions. Initiating diuresis mobilize fluid. More awake, follows commands however extremely weak and extremities. Remains on TPN. Subjective: 09/30 Bleeding noted in ROSSI overnight, Hgb 5.7. Three units PRBC ordered and 1 unit infusing when am labs drawn in which Hgb was 5.7. Currently receiving 3rd unit of PRBC. Dr. Hernandez updated overnight. Now ROSSI no longer having output, obtaining CT abd/pelvis. Tachypneic, tachycardic in 108, BP 96/53. No BM. 10/01: Back on vent support. Required several transfusions over past 24 hours. Drainage minimal. 10/02: Percutaneous abdominal drained placed in IR 10/01. Hgb stable since immediately after. Azotemia developing. Lung volumes reduced on CXR. 10/03: Azotemia persists. Continue free water. 10/04: Urine output is copious, cause unclear. Glucose well controlled and no diuretics. Hgb without change. Objective Vital Signs Date Time Temp Pulse Resp B/P (MAP) Pulse Ox O2 Delivery O2 Flow Rate FiO2 10/04/17 09:03 98 30 10/04/17 06:00 72 10/04/17 04:00 100.0 16 156/69 (98) 10/03/17 09:02 Ventilator Intake and Output 10/04/17 10/04/17 10/05/17 08:00 16:00 00:00 Intake Total 1194 ml Output Total 2340 ml Balance -1146 ml Result Diagram: 10/04/17 0346 10/04/17 0346 Other Results Microbiology Date/Time Source Procedure Growth Status 10/01/17 13:00 Fluid Peritoneal Fluid Gram Stain - Final Complete 10/01/17 13:00 Fluid Peritoneal Fluid Body Fluid Culture - Final NO GROWTH IN 72 HRS.--AEROBICALLY OR ... Complete Imaging Last 48 hours Impressions Chest X-Ray 09/29/17 0000 Signed Impressions: Service Date/Time: Friday, September 29, 2017 11:31 - CONCLUSION: 1. Cardiomegaly with bilateral effusions and interstitial prominence consistent with congestive failure. 2. The tip of the endotracheal tube is not visualized due to technique. If further assessment of this is desired repeat exam could be attempted. 3. Appearance of the parenchyma has worsened compared to prior. Haris Mcfarland MD Objective Remarks GENERAL: morbidly obese, pale and critically ill appearing female SKIN: Dry. Serous clear blisters in right lower abdomen. HEAD: Normocephalic. EYES: Pupils 2 mm and sluggishly reactive. Anicteric. Pale conjunctiva NECK: Trachea midline. Proximal XL T trach in place, no exudate or bleeding CARDIOVASCULAR: Tachycardic, regular, sinus tach on the monitor. Heart sounds distant. No murmur rub or gallop appreciated. JVD difficult to assess due to body habitus. RESPIRATORY: Tachypneic, equal breath sounds bilaterally, persistent scattered rhonchi. PRVC PEEP 10. GASTROINTESTINAL: Abdomen moderately distended, obese, abdominal wall edema/ anasarca present with significant dependent edema RLQ. ROSSI in RLQ with minimal bloody output and clots. Bag in place around ROSSI site, no drainage currently ( reportedly previously bilious appearing drainage). Right side drain with dark old blood only, no fresh blood. MUSCULOSKELETAL: No cyanosis. 2+ edema, diffuse. NEURO EXAM: Eyes open spontaneously , makes eye contact, +/- nod to voice. Very weak movement of fingers and toes to noxious stimuli. A/P Assessment and Plan Assessment: 61yF s/p gastric bypass complicated by small bowel obstruction, intra-abdominal sepsis, persistent respiratory failure, volume overload. remains off pathway. s/p trach. Now with acute blood loss anemia, bleeding from ROSSI stopped. New drain with old blood, no fresh bleeding.. A/P: NEURO: Seizure disorder Metabolic encephalopathy Hypoactive Delirium - Currently off all sedation - Keppra 500 IV q12. - fentanyl prn for positioning. - haldol for agitation - has been on provigil for wakefulness. RESP: Acute hypoxemic respiratory failure - persistent, stable. ARDS HCAP with E Coli - Continue mechanical ventilation - Vent bundle - DuoNeb every 6 hours scheduled and when necessary - CXR 09/29 - Bilateral effusions, bilateral perihilar opacities. - Tracheostomy by Dr. Preciado 09/23 - Slow vent weaning, will eventually need LTAC when stabilized. - Tolerating SBTs very well. CVS: Septic shock-resolved. Lactic acidosis - resolved. Recurrent Hypotension, secondary to acute blood loss - s/p Aggressive IV fluid resuscitation, postop received 9 L of normal saline, 2 units of PRBC - s/p hydrocortisone taper completed 09/18. - Diuresis with lasix initiated 09/29. Will hold currently due to active bleeding, will use intermittently following transfusion when intravascularly resuscitated. GI: Small bowel ischemia/Perforation Peritonitis Bile leak Bleeding - S/P Laparoscopic SBR for gangrenous small bowel - Post op surgical management per Dr. Epstein general surgery - Nepro trickle feeds on hold, diet management per general surgery. - IV Protonix. Started TPN 09/10/17 - ct abd/pelvis with PO contrast showing no abscess 09/19 - ROSSI management per gen surgery. FEN: Hypernatremia Free water deficit Hypokalemia Hypomagnesemia - electrolyte replacement as needed. - TPN 75 ml/hr. D5W 42 ml/hr - Daily BMP : Acute kidney failure - improving. Contraction alkalosis - improving. - ATN most likely from severe septic shock. Had been improving, uptrend this morning. - Maintain Bedolla for accurate intake output - Rising BUN again, acts prerena but urine > 60/hr HEME: Anemia secondary to acute blood loss - Platelet count normal. INR 1.2 - Hgb 5.7. Transfusing 3 units PRBC and will monitor Hgb q6 hours. 2 units FFP on hold. Was on Lovenox 60 q12 since 09/26. Now on hold after bleed. ID: Septic shock - resolved. Peritonitis HCAP with E Coli - resolved Leukocytosis. - Sputum culture 09/08 E Coli - Blood cultures, urine culture from 09/27 negative. - ID following, Dr. Enriquez. - Continue Zosyn. Panculture. Broaden abx if clinical worsening/eo infection. ENDO: Diabetes mellitus Hypocalcemia - Insulin sliding scale, and IV insulin with TPN - Electrolyte replacement per protocol - Continue levemir 18 units subcut bid - po synthroid now that gut function improving. DVT GI prophylaxis - Teds SCDs - Pharmacological DVT prophylaxis - Protonix Lines: Right IJ line d/c'd 09/20, New left SCV CVL placed 09/20 #11, d/c'd . New Right SCV CVL inserted 10/03.. Replace if recurring fever. Patient is critically ill with recent active bleeding and acute symptomatic blood loss anemia. Currently hypotension is responsive to transfusion. She is at high risk for further deterioration. Overall impression: Critically ill but stabilizing now. Long-term prognosis is poor. is discussing options with family. Some have requested Palliative Care consult. Jose Landin MD Oct 04, 2017 10:52
[2017-10-04 11:22] LABS: AUTOMATED NEUTROPHIL # 5.7 TH/MM3 (1.8-7.7); BASOPHIL % 0.5 % (0.0-2.0); EOSINOPHIL # 0.2 TH/MM3 (0-0.4); EOSINOPHIL % 3.4 % (0.0-4.0); HEMATOCRIT 23.8 % (35.0-46.0); HEMO FLAGS DIFF FINAL; LYMPH % 9.7 % (9.0-44.0); LYMPHOCYTE # 0.7 TH/MM3 (1.0-4.8); MEAN CORPUSCULAR HEMOGLOBIN 30.5 PG (27.0-34.0); MEAN CORPUSCULAR HGB CONC 33.5 % (32.0-36.0); MONO % 9.4 % (0.0-8.0); PLATELET COUNT 239 TH/MM3 (150-450); RED BLOOD COUNT 2.62 MIL/MM3 (4.00-5.30); RED CELL DISTRIBUTION WIDTH 15.5 % (11.6-17.2); WHITE BLOOD COUNT 7.3 TH/MM3 (4.0-11.0)
--- NOTE | 2017-10-04 11:42 | HHI.PR ---
Subjective Subjective Notes Clinically unchanged Objective Vitals/I&O Vital Signs Date Time Temp Pulse Resp B/P (MAP) Pulse Ox O2 Delivery O2 Flow Rate FiO2 10/04/17 09:03 98 30 10/04/17 06:00 72 10/04/17 04:00 100.0 16 156/69 (98) 10/03/17 09:02 Ventilator Labs Laboratory Tests Test 10/03/17 14:13 10/03/17 20:22 10/04/17 03:46 Hemoglobin 8.2 8.0 8.0 Hematocrit 24.4 23.3 23.8 White Blood Count 7.3 Red Blood Count 2.62 Mean Corpuscular Volume 91.0 Mean Corpuscular Hemoglobin 30.5 Mean Corpuscular Hemoglobin Concent 33.5 Red Cell Distribution Width 15.5 Platelet Count 239 Mean Platelet Volume 9.1 Neutrophils (%) (Auto) 77.0 Lymphocytes (%) (Auto) 9.7 Monocytes (%) (Auto) 9.4 Eosinophils (%) (Auto) 3.4 Basophils (%) (Auto) 0.5 Neutrophils # (Auto) 5.7 Lymphocytes # (Auto) 0.7 Monocytes # (Auto) 0.7 Eosinophils # (Auto) 0.2 Basophils # (Auto) 0.0 CBC Comment DIFF FINAL Differential Comment Blood Urea Nitrogen 139 Creatinine 2.22 Random Glucose 154 Calcium Level 8.7 Sodium Level 150 Potassium Level 3.6 Chloride Level 118 Carbon Dioxide Level 20.8 Anion Gap 11 Estimat Glomerular Filtration Rate 22 Random Vancomycin Level 21.7 Date/Time Source Procedure Growth Status 09/30/17 19:06 Blood Peripheral Aerobic Blood Culture - Preliminary NO GROWTH IN 4 DAYS Resulted 09/30/17 19:06 Blood Peripheral Anaerobic Blood Culture - Preliminary NO GROWTH IN 4 DAYS Resulted 10/01/17 13:00 Fluid Peritoneal Fluid Gram Stain - Final Complete 10/01/17 13:00 Fluid Peritoneal Fluid Body Fluid Culture - Final NO GROWTH IN 72 HRS.--AEROBICALLY OR ... Complete 09/30/17 10:45 Sputum Endotracheal Gram Stain - Final Complete 09/30/17 10:45 Sputum Endotracheal Sputum Culture - Final HEAVY GROWTH NORMAL RESPIRATORY MANUEL Complete 09/30/17 10:45 Urine Catheterized Urine Urine Culture - Final NO GROWTH IN 48 HOURS. Complete 09/15/17 08:31 Wound Abdomen Gram Stain - Final Complete 09/15/17 08:31 Wound Abdomen Wound Culture - Final NO GROWTH IN 72 HRS.--AEROBICALLY OR ... Complete Radiology Last Impressions Chest X-Ray 10/03/17 0000 Signed Impressions: Service Date/Time: Tuesday, October 03, 2017 18:06 - CONCLUSION: Right subclavian catheter tip in the right atrium. No definite evidence of pneumothorax. Tae Roblero MD Abscess Drainage CT 10/01/17 0000 Signed Impressions: Service Date/Time: Sunday, October 01, 2017 12:30 - CONCLUSION: Uncomplicated CT guided drainage. Ross Flaherty MD Abdomen/Pelvis CT 09/30/17 0000 Signed Impressions: Service Date/Time: Saturday, September 30, 2017 11:53 - CONCLUSION: 1. There is a complex mesenteric collection containing high and low density fluid as well as scattered air bubbles in or 14.5 x 8.8 x 12.0 cm. This likely represents a walled-off perforation with possible formation of abscess. Clinical correlation is recommended. 2. Several mildly dilated loops of small bowel raising the possibility of partial small bowel traction. Clinical correlation is recommended. 3. Moderate amount of ascites within the upper abdomen. 4. Uncomplicated colonic diverticulosis. 5. Small left pleural effusion. 6. Bibasilar atelectasis. 7. Anasarca throughout the abdominal wall. Darion Oates MD Head CT 09/19/17 0000 Signed Impressions: Service Date/Time: Tuesday, September 19, 2017 15:54 - CONCLUSION: 1. No evidence of acute intracranial pathology. No masses are identified. 2. Bilateral mastoiditis Jens John MD Chest CT 09/19/17 0000 Signed Impressions: Service Date/Time: Tuesday, September 19, 2017 15:59 - CONCLUSION: 1. Multifocal areas of consolidation greatest in right lower lobe most characteristic of pneumonia. 2. Abnormal soft tissue density in the right axilla contiguous with abnormal soft tissue density and inflammatory change extending along the right lateral chest wall. This could represent hemorrhage and/or inflammatory change. There are no gas bubbles are infection cannot be excluded. 3. There is fluid again noted in the upper abdomen. 4. Moderate elevation of the right hemidiaphragm. Yuri Holt MD Abdomen Fluoroscopy 09/08/17 0000 Signed Impressions: Service Date/Time: Friday, September 08, 2017 12:04 - CONCLUSION: Uncomplicated nasogastric tube placement as above. Tae Archuleta Jr., MD Cardiovascular: Regular Abdomen: Other (intermittent bowel sounds) Extremities: Perfused Wound Wound : Wound Location: Abdomen (Right ROSSI continues with bileous and bloody drainage , midline accordian drain with small amount yellow drainage. Surgical incisions packed with iodoform) A/P Assessment and Plan 61yo F with small bowel perforation and peritonitis -H&H stable for now -Keep ROSSI to low wall suction -Patient is a poor surgical candidate, will continue with medical management per family's wishes. Palliative consult appropriate D/W RN and family at bedside Flower Gomez Oct 04, 2017 11:42
[2017-10-04] MEDS: MICAFUNGIN INJ 100 MG in SODIUM CHLORIDE 0.9% INJ 100 ML IV SCH (14:25)
--- NOTE | 2017-10-04 15:01 | HHI.IDPN ---
Note Infectious Disease Note Patient is sedated. Afebrile. Has eyes open. Not voluntarily responding. Has low grade temp. Presented to the emergency department on September 07 and was diagnosed with small bowel obstruction. She was taken to surgery and was found to have necrosed, perforated small bowel and she underwent small bowel resection. The patient previously had elective gastric sleeve on 08/22/2017. After that she was having nausea and vomiting and then difficulty passing stools. During the surgical procedure the patient had some purulent material within the abdomen. PAST MEDICAL HISTORY 1. Rheumatoid arthritis 2. Hypothyroidism 3. Gout 4. Depression 5. Seizure disorder 6. Attention deficit disorder 7. Cholecystectomy 8. Tonsillectomy 9. Ankle arthroplasty 10. Gastric sleeve. 08/22/17. ALLERGIES PROPOXYPHENE DARVOCET ADHESIVE TAPES ANTIBIOTICS Zosyn. Vancomycin. Micafungin. OBJECTIVE: Vital Signs Date Time Temp Pulse Resp B/P (MAP) Pulse Ox O2 Delivery O2 Flow Rate FiO2 10/04/17 13:06 97 30 10/04/17 09:03 98 30 10/04/17 09:03 30 10/04/17 06:00 72 10/04/17 04:48 99 30 10/04/17 04:00 30 10/04/17 04:00 100.0 82 16 156/69 (98) 96 10/04/17 04:00 82 10/04/17 02:00 81 10/04/17 00:00 84 10/04/17 00:00 100.0 84 16 128/61 (83) 95 10/04/17 00:00 30 10/03/17 23:49 97 30 10/03/17 22:00 88 10/03/17 20:00 99.8 76 25 136/63 (87) 95 10/03/17 20:00 90 10/03/17 20:00 30 10/03/17 19:49 96 30 10/03/17 18:00 107 10/03/17 16:00 30 10/03/17 16:00 100.3 80 20 100/53 (69) 98 10/03/17 16:00 80 Laboratory Tests Test 10/02/17 20:10 10/03/17 04:26 10/03/17 14:13 10/03/17 20:22 Hemoglobin 8.0 GM/DL 8.3 GM/DL 8.2 GM/DL 8.0 GM/DL Hematocrit 23.4 % 24.6 % 24.4 % 23.3 % Test 10/04/17 03:46 White Blood Count 7.3 TH/MM3 Red Blood Count 2.62 MIL/MM3 Hemoglobin 8.0 GM/DL Hematocrit 23.8 % Mean Corpuscular Volume 91.0 FL Mean Corpuscular Hemoglobin 30.5 PG Mean Corpuscular Hemoglobin Concent 33.5 % Red Cell Distribution Width 15.5 % Platelet Count 239 TH/MM3 Mean Platelet Volume 9.1 FL Neutrophils (%) (Auto) 77.0 % Lymphocytes (%) (Auto) 9.7 % Monocytes (%) (Auto) 9.4 % Eosinophils (%) (Auto) 3.4 % Basophils (%) (Auto) 0.5 % Neutrophils # (Auto) 5.7 TH/MM3 Lymphocytes # (Auto) 0.7 TH/MM3 Monocytes # (Auto) 0.7 TH/MM3 Eosinophils # (Auto) 0.2 TH/MM3 Basophils # (Auto) 0.0 TH/MM3 CBC Comment DIFF FINAL Differential Comment Laboratory Tests Test 10/03/17 04:26 10/04/17 03:46 Blood Urea Nitrogen 133 MG/DL 139 MG/DL Creatinine 2.33 MG/DL 2.22 MG/DL Random Glucose 151 MG/DL 154 MG/DL Calcium Level 8.9 MG/DL 8.7 MG/DL Sodium Level 149 MEQ/L 150 MEQ/L Potassium Level 3.8 MEQ/L 3.6 MEQ/L Chloride Level 117 MEQ/L 118 MEQ/L Carbon Dioxide Level 19.3 MEQ/L 20.8 MEQ/L Anion Gap 13 MEQ/L 11 MEQ/L Estimat Glomerular Filtration Rate 21 ML/MIN 22 ML/MIN Microbiology Date/Time Source Procedure Growth Status 09/30/17 19:06 Blood Peripheral Aerobic Blood Culture - Preliminary NO GROWTH IN 2 DAYS Resulted 09/30/17 19:06 Blood Peripheral Anaerobic Blood Culture - Preliminary NO GROWTH IN 2 DAYS Resulted 09/30/17 14:00 Blood Peripheral Aerobic Blood Culture - Preliminary NO GROWTH IN 2 DAYS Resulted 09/30/17 14:00 Blood Peripheral Anaerobic Blood Culture - Preliminary NO GROWTH IN 2 DAYS Resulted 10/01/17 13:00 Fluid Peritoneal Fluid Gram Stain - Final Resulted 10/01/17 13:00 Fluid Peritoneal Fluid Body Fluid Culture Pending Resulted 09/30/17 10:45 Sputum Endotracheal Gram Stain - Final Complete 09/30/17 10:45 Sputum Endotracheal Sputum Culture - Final HEAVY GROWTH NORMAL RESPIRATORY MANUEL Complete 09/30/17 10:45 Urine Catheterized Urine Urine Culture - Final NO GROWTH IN 48 HOURS. Complete IMAGING: Chest X-Ray 10/03/17 0000 Signed Impressions: Service Date/Time: Tuesday, October 03, 2017 18:06 - CONCLUSION: Right subclavian catheter tip in the right atrium. No definite evidence of pneumothorax. Tae Roblero MD Chest X-Ray 10/01/17 0600 Signed Impressions: Service Date/Time: Sunday, October 01, 2017 05:05 - CONCLUSION: Decreasing bilateral consolidation and effusions, now mild/very small. Damian Sauceda MD Abdomen/Pelvis CT 09/30/17 0000 Signed Impressions: Service Date/Time: Saturday, September 30, 2017 11:53 - CONCLUSION: 1. There is a complex mesenteric collection containing high and low density fluid as well as scattered air bubbles in or 14.5 x 8.8 x 12.0 cm. This likely represents a walled-off perforation with possible formation of abscess. Clinical correlation is recommended. 2. Several mildly dilated loops of small bowel raising the possibility of partial small bowel traction. Clinical correlation is recommended. 3. Moderate amount of ascites within the upper abdomen. 4. Uncomplicated colonic diverticulosis. 5. Small left pleural effusion. 6. Bibasilar atelectasis. 7. Anasarca throughout the abdominal wall. Darion Oates MD Chest X-Ray 09/29/17 0000 Signed Impressions: Service Date/Time: Friday, September 29, 2017 11:31 - CONCLUSION: 1. Cardiomegaly with bilateral effusions and interstitial prominence consistent with congestive failure. 2. The tip of the endotracheal tube is not visualized due to technique. If further assessment of this is desired repeat exam could be attempted. 3. Appearance of the parenchyma has worsened compared to prior. Haris Mcfarland MD Chest X-Ray 09/19/17 0400 Signed Impressions: Service Date/Time: Tuesday, September 19, 2017 04:10 - CONCLUSION: 1. Interval improvement in bilateral pulmonary infiltrates. 2. The patient remains intubated. Yuri Holt MD Head CT 09/19/17 0000 Signed Impressions: Service Date/Time: Tuesday, September 19, 2017 15:54 - CONCLUSION: 1. No evidence of acute intracranial pathology. No masses are identified. 2. Bilateral mastoiditis Jens John MD Chest X-Ray 09/19/17 0000 Signed Impressions: Service Date/Time: Tuesday, September 19, 2017 09:44 - CONCLUSION: Increasing bibasilar parenchymal changes worse on the right. Raghu Mcfarland MD FACR Chest CT 09/19/17 0000 Signed Impressions: Service Date/Time: Tuesday, September 19, 2017 15:59 - CONCLUSION: 1. Multifocal areas of consolidation greatest in right lower lobe most characteristic of pneumonia. 2. Abnormal soft tissue density in the right axilla contiguous with abnormal soft tissue density and inflammatory change extending along the right lateral chest wall. This could represent hemorrhage and/or inflammatory change. There are no gas bubbles are infection cannot be excluded. 3. There is fluid again noted in the upper abdomen. 4. Moderate elevation of the right hemidiaphragm. Yuri Holt MD Abdomen/Pelvis CT 09/19/17 0000 Signed Impressions: Service Date/Time: Tuesday, September 19, 2017 15:59 - CONCLUSION: 1. There is no evidence of abscess. 2. Mild ascites Jens John MD PHYSICAL EXAM: GENERAL: No acute distress. HEENT: Head atraumatic, No icterus. No conjunctival erythema. NECK: Supple. No adenopathy. LUNGS: Bibasilar rhonchi. CARDIAC: Regular rate and rhythm. no murmurs, rubs or gallops. ABDOMEN: Obese. Soft. No tenderness appreciated. R. Arnie drain has bloody drainage. Abdominal accordion drain has serous drainage. EXTREMITIES: No clubbing, cyanosis. 1+ edema at the feet. NEURO: Sedated. Raises arms involuntarily. SKIN: No rash. Warm and moist. IMPRESSION 1. Septic shock. 2. Post exploratory laparotomy and small bowel resection along with lysis of adhesions for small bowel perforation. 3. Peritonitis due to due to small bowel perforation. 4. Acute respiratory failure. Now has tracheostomy. 5. VAP gram negative. E. coli. 6. Acute kidney disease. ? sepsis related. ? medication. Not recovering. 7. Leukocytosis. WBC now normal. 8. Mastoiditis on CT scan. 9. Abdominal fluid collection. ? abscess. Culture is negative. 10. Fever low grade temps. ? meds. RECOMMENDATIONS 1. Stop Zosyn. 2. Continue Vancomycin. 3. continue Micafungin. 4. Monitor culture. 5. Monitor temp. Discussed with PATRICIA. Jus Enriquez MD Oct 04, 2017 15:01
[2017-10-04] MEDS ORDERED: VANCOMYCIN INJ 2,000 MG in SODIUM CHLORID 0.9% 500 ML INJ 500 ML IV ONE (16:00)
--- NOTE | 2017-10-04 18:33 | PD.CONS ---
Consult Service Palliative Care . Consult Requested By Dr. Landin . Primary Care Physician Rafael Rowan MD Reason for Consultation a. To assist with evaluation and management of symptoms including: dyspnea, pain. b. To assist medical decision maker(s) with: better understanding of current medical conditions; weighing benefits/burdens of medical treatment options; making medical treatment decisions. . HPI History of Present Illness Mrs. Ramirez is a 61 year old female with past medical history of morbid obesity, essential hypertension, arthritis, depression, sleep apnea and hypothyroidism. Patient underwent laparoscopic vertical sleeve gastrectomy by Dr. Epstein on 08/23/17. Patient presented to [facility] on 09/07/17 with nonbloody emesis and constipation for a few days post prior gastrectomy on 08/23/17. Bowel movement prior to presentation to the emergency department required glycerin suppository and was reported a loose stool few days prior. She was taken emergently on for laparoscopic lysis of adhesions, small bowel resection drainage of abscess to the operating room where she was found to have small bowel ischemia. Dr. Epstein performed laparoscopic small bowel resection. Patient was admitted to [facility]. Postoperatively the patient remained critically ill with profound septic shock requiring pressor support. Hospital course has been complicated by pulmonary and renal issues. She has remained on mechanical ventilation, requiring tracheostomy on 09/23/17. It appeared she was going to be able to leave the hospital for transfer to LTAC. Unfortunately on 09/30/17 patient had significant bleeding in ROSSI drain hemoglobin dropped to 5.[address] scan abdomen/pelvis revealed complex mesenteric collection containing high and low density fluid as well as scattered air bubbles in 14.5 x 8.8 x 12.0 cm, likely representing a walled off perforation with possible formation of abscess, severely mildly dilated loops of small bowel raising the possibility of partial small bowel traction, moderate amount of ascites in the upper abdomen, uncomplicated colonic diverticulitis, small left pleural effusion, bibasilar atelectasis, anasarca throughout the abdominal wall. On 10/01/[address] guided drainage of right epigastric region. Surgical and intensive care teams feel this unfortunate patient with intestinal fistula and multiple medical problems will likely have ongoing infectious related complications, not a candidate for further surgical intervention. Overall prognosis is poor for meaningful recovery. Palliative care is consulted to assist with clarification of treatment goals, symptom management and to support family. . Function/Cognitive Trajectory Patient has had ongoing trajectory of decline over the past few months with prolonged hospitalization. . Review of Systems ROS Limitations: Intubated, Altered Mental Status (awakens, intermittently tracks, does not follow commands or answer questions. ROS per EMR review. ) Constitutional: COMPLAINS OF: Fatigue, Change in appetite (decrease) Gastrointestinal: COMPLAINS OF: Abdominal pain, Constipation Hematologic/Lymphatics: COMPLAINS OF: Bruising Psychiatric: COMPLAINS OF: Depression Past Family Social History Coded Allergies: propoxyphene (Unverified Allergy, Intermediate, HALLUCINATIONS, 08/23/17) Uncoded Allergies: ADHESIVE TAPE (Allergy, Intermediate, PULLS SKIN OFF, 09/20/13) DARVOCET-HALLUCINATIONS; (Allergy, Unknown, 06/24/03) Past Medical History Arthritis Morbid obesity Depression Polymyalgia rheumatica Essential hypertension Hypothyroidism Gout Attention deficit disorder . Past Surgical History Diagnostic laparoscopy - 2001 Laparoscopic vertical sleeve gastrectomy - 08/23/2017 Laparoscopic with lysis of adhesions, small bowel resection drainage of abscess - 09/08/2017 Percutaneous tracheostomy bronchoscopy - 09/23/17 Ankle arthroplasty Cholecystectomy Tonsillectomy and adenoidectomy . Reported Medications Reported Meds & Active Scripts Active Bath/Shower Seat with Hubert (Device) 1 Mis Mis Ea .ROUTE DIRECTED Walker with Front Wheels (Device) 1 Mis Mis Ea .ROUTE DIRECTED Phenergan (Promethazine HCl) 25 Mg Tablet 25 Mg PO Q6H PRN Reported Protonix (Pantoprazole Sodium) 40 Mg Tab 40 Mg PO DAILY Metformin (Metformin HCl) 500 Mg Tab 250 Mg PO DAILY With a meal Venlafaxine ER 24 HR (Venlafaxine HCl) 75 Mg Cap 75 Mg PO DAILY Allopurinol 100 Mg Tab 2 Tab PO DAILY Marathon Thyroid (Thyroid) 120 Mg Tab 120 Mg PO DAILY Levetiracetam 250 Mg Tab 250 Mg PO BID Methylphenidate ER 24 HR (Methylphenidate HCl) 20 Mg Caper 20 Mg PO DAILY Amlodipine (Amlodipine Besylate) 2.5 Mg Tab 2.5 Mg PO DAILY [place]-3 Fish Oil/Vitamin (Fish Oil-Cholecalciferol) 1,000-1,000 Mg Cap 1 Cap PO DAILY Estrogel Topical (Estradiol) 0.06% Gel 1 Gm VAGINAL WEEKLY Vitamin D3 (Cholecalciferol) 5,000 Unit Cap 5,000 Units PO DAILY . Current Medications Medications (Trade) Dose Ordered Sig/Daniel Route Start Time Stop Time Status Last Admin (Protonix Inj) 40 mg DAILY IV PUSH 09/08/17 09:00 10/04/17 08:24 (NS Flush) 2 ml UNSCH PRN IV FLUSH 09/08/17 19:15 (NS Flush) 2 ml BID IV FLUSH 09/08/17 21:00 10/04/17 08:26 (Zofran Inj) 4 mg Q4H PRN IV PUSH 09/08/17 19:15 09/08/17 20:00 Levetriacetam 500 mg/Sodium Chloride 105 ml @ 420 mls/hr Q12HR IV 09/09/17 09:00 10/04/17 08:26 Albumin Human 100 ml @ 60 mls/hr Q8H IV 09/09/17 08:00 10/04/17 16:00 Multivitamins 10 ml/Folic Acid 1 mg/Insulin Human Regular 40 units/ Amino Acids/ Electrolytes/ Dextrose 2,010.6 ml @ 75 mls/hr Q24H IV-CENTRAL 09/11/17 20:00 10/03/17 21:36 (Duoneb Neb) 1 ampule Q2HR NEB PRN NEB 09/12/17 14:00 10/03/17 19:54 (D50w (Vial) Inj) 50 ml UNSCH PRN IV PUSH 09/13/17 12:30 (Glucagon Inj) 1 mg UNSCH PRN OTHER 09/13/17 12:30 (NovoLOG SUPPLEMENTAL SCALE) 1 Q6HR SQ 09/13/17 12:30 10/04/17 12:00 (Peridex 0.12% Liq) 15 ml BID@08,20 MT 09/13/17 20:00 10/04/17 08:26 (Haldol Inj) 5 mg Q4H PRN IV PUSH 09/16/17 15:45 09/30/17 00:21 (fentaNYL INJ) 50 mcg Q1H PRN IV PUSH 09/16/17 15:45 09/30/17 01:15 (Tears Naturale Opth Soln) 1 drop TID EACH EYE 09/16/17 20:00 10/04/17 17:22 (Apresoline Inj) 20 mg Q4H PRN IV PUSH 09/18/17 23:45 09/28/17 09:41 (Trandate Inj) 10 mg Q4H PRN IV PUSH 09/18/17 23:45 09/26/17 19:08 (Levemir Inj) 18 units Q12HR SQ 09/20/17 21:00 10/04/17 08:25 (Synthroid) 50 mcg DAILY@0600 PO 09/24/17 06:00 10/04/17 06:02 Dextrose 1,000 ml @ 100 mls/hr Q10H IV 09/30/17 10:00 10/04/17 08:27 Micafungin Sodium 100 mg/Sodium Chloride 100 ml @ 100 mls/hr Q24H IV 09/30/17 13:00 10/04/17 14:25 Pharmacy Profile Note 0 ml @ 0 mls/hr UNSCH OTHER 09/30/17 12:45 Dextrose 500 ml @ 40 mls/hr [id number] IV 10/03/17 18:00 Vancomycin HCl 2000 mg/Sodium Chloride 520 ml @ 257.5 mls/ hr ONCE ONCE IV 10/04/17 16:00 10/04/17 18:01 10/04/17 17:22 Family History No family history of early coronary artery disease or malignancy. . Substance Use Tobacco: none Alcohol: rare alcohol use Prescription med abuse: none Illicits: none . Psychosocial History . Lives in [place]. Active member in the [place] community. 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 Active in the [place] [employer]. . Spiritual/Cultural Factors Moravian kirk . Living Will: Never completed Health Care Surrogate: Never completed Durable Power of Geothermal Technician: Never completed Health Care Surrogate(s): Patient currently incapacitated to make her own health care decisions, uncertain if she will regain capacity. According to [place] statutes, health care proxy decision-making falls to her spouse. . Today's verbally stated goals: Patient currently incapacitated to make her own health care decisions, uncertain if she will regain capacity. . Family/friends goals: Will attempt to clarify goals in the coming days. Will await contacting family until surgical or intensive care team is able to introduce palliative care service. . Ethical and Legal Issues Patient currently incapacitated to make her own health care decisions, uncertain if she will regain capacity. According to [place] statutes, health care proxy decision-making falls to her spouse. . Physical Exam Vital Signs Date Time Temp Pulse Resp B/P (MAP) Pulse Ox O2 Delivery O2 Flow Rate FiO2 10/04/17 16:05 95 30 10/04/17 13:06 97 30 10/04/17 09:03 98 30 10/04/17 09:03 30 10/04/17 06:00 72 10/04/17 04:48 99 30 10/04/17 04:00 30 10/04/17 04:00 100.0 82 16 156/69 (98) 96 10/04/17 04:00 82 10/04/17 02:00 81 10/04/17 00:00 84 10/04/17 00:00 100.0 84 16 128/61 (83) 95 10/04/17 00:00 30 10/03/17 23:49 97 30 10/03/17 22:00 88 10/03/17 20:00 99.8 76 25 136/63 (87) 95 10/03/17 20:00 90 10/03/17 20:00 30 10/03/17 19:49 96 30 10/03/17 18:00 107 Exam CONSTITUTIONAL/GENERAL: This is morbid obese, critically ill patient, in no acute distress. TUBES/LINES/DRAINS: NG tube, tracheostomy, right subclavian central line, PIV right, right lower quadrant ROSSI drain with drainage bag, Bedolla, SCD's. SKIN: Pale. Ecchymoses on upper extremities. Skin temperature appropriate. Not diaphoretic. HEAD: Atraumatic. Normocephalic. EYES: Pupils equal and round and reactive. Extraocular motions intact. No scleral icterus. No injection or drainage. Fundi not examined. ENT: Hearing grossly normal. Nose without bleeding or purulent drainage. Throat without visible erythema, exudates, masses, or lesions. NECK: Trachea midline. Supple, nontender. No palpable thyroid enlargement or nodularity. CARDIOVASCULAR: Regular rate and rhythm without murmurs, gallops, or rubs. No JVD. Peripheral pulses symmetric. RESPIRATORY/CHEST: Symmetric, unlabored respirations. Clear to auscultation. Breath sounds equal bilaterally. No wheezes, rales, or rhonchi. GASTROINTESTINAL: Abdomen soft, non-tender, nondistended. No hepato-splenomegaly , or palpable masses. No guarding. Bowel sounds present. GENITOURINARY: Without palpable bladder distension. Bedolla catheter in place. MUSCULOSKELETAL: Extremities without clubbing, cyanosis, or edema. No joint tenderness or effusion noted. No calf tenderness. No mottling or clubbing. LYMPHATICS: No palpable cervical or supraclavicular adenopathy. NEUROLOGICAL: Awake and alert. Motor and sensory grossly within normal limits. Follows commands. Cognitively sharp. Moves all extremities. PSYCHIATRIC: No obvious anxiety/depression. no apparent hallucinations or other psychotic thought process. Diagnostic Tests Laboratory Laboratory Tests Test 10/01/17 21:18 10/02/17 03:58 10/02/17 20:10 10/03/17 04:26 Hemoglobin 8.2 GM/DL (11.6-15.3) 8.1 GM/DL (11.6-15.3) 8.0 GM/DL (11.6-15.3) 8.3 GM/DL (11.6-15.3) Hematocrit 24.0 % (35.0-46.0) 23.9 % (35.0-46.0) 23.4 % (35.0-46.0) 24.6 % (35.0-46.0) Blood Urea Nitrogen 115 MG/DL (7-18) 133 MG/DL (7-18) Creatinine 2.33 MG/DL (0.50-1.00) 2.33 MG/DL (0.50-1.00) Random Glucose 140 MG/DL (74-106) 151 MG/DL (74-106) Calcium Level 8.9 MG/DL (8.5-10.1) 8.9 MG/DL (8.5-10.1) Sodium Level 151 MEQ/L (136-145) 149 MEQ/L (136-145) Potassium Level 3.8 MEQ/L (3.5-5.1) 3.8 MEQ/L (3.5-5.1) Chloride Level 118 MEQ/L (98-107) 117 MEQ/L (98-107) Carbon Dioxide Level 20.6 MEQ/L (21.0-32.0) 19.3 MEQ/L (21.0-32.0) Anion Gap 12 MEQ/L (5-15) 13 MEQ/L (5-15) Estimat Glomerular Filtration Rate 21 ML/MIN (>89) 21 ML/MIN (>89) Random Vancomycin Level 38.3 COMMENT Test 10/03/17 14:13 10/03/17 20:22 10/04/17 03:46 Hemoglobin 8.2 GM/DL (11.6-15.3) 8.0 GM/DL (11.6-15.3) 8.0 GM/DL (11.6-15.3) Hematocrit 24.4 % (35.0-46.0) 23.3 % (35.0-46.0) 23.8 % (35.0-46.0) White Blood Count 7.3 TH/MM3 (4.0-11.0) Red Blood Count 2.62 MIL/MM3 (4.00-5.30) Mean Corpuscular Volume 91.0 FL (80.0-100.0) Mean Corpuscular Hemoglobin 30.5 PG (27.0-34.0) Mean Corpuscular Hemoglobin Concent 33.5 % (32.0-36.0) Red Cell Distribution Width 15.5 % (11.6-17.2) Platelet Count 239 TH/MM3 (150-450) Mean Platelet Volume 9.1 FL (7.0-11.0) Neutrophils (%) (Auto) 77.0 % (16.0-70.0) Lymphocytes (%) (Auto) 9.7 % (9.0-44.0) Monocytes (%) (Auto) 9.4 % (0.0-8.0) Eosinophils (%) (Auto) 3.4 % (0.0-4.0) Basophils (%) (Auto) 0.5 % (0.0-2.0) Neutrophils # (Auto) 5.7 TH/MM3 (1.8-7.7) Lymphocytes # (Auto) 0.7 TH/MM3 (1.0-4.8) Monocytes # (Auto) 0.7 TH/MM3 (0-0.9) Eosinophils # (Auto) 0.2 TH/MM3 (0-0.4) Basophils # (Auto) 0.0 TH/MM3 (0-0.2) CBC Comment DIFF FINAL Differential Comment Blood Urea Nitrogen 139 MG/DL (7-18) Creatinine 2.22 MG/DL (0.50-1.00) Random Glucose 154 MG/DL (74-106) Calcium Level 8.7 MG/DL (8.5-10.1) Sodium Level 150 MEQ/L (136-145) Potassium Level 3.6 MEQ/L (3.5-5.1) Chloride Level 118 MEQ/L (98-107) Carbon Dioxide Level 20.8 MEQ/L (21.0-32.0) Anion Gap 11 MEQ/L (5-15) Estimat Glomerular Filtration Rate 22 ML/MIN (>89) Random Vancomycin Level 21.7 COMMENT Result Diagram: 10/04/17 0346 10/04/17 0346 Microbiology Microbiology Date/Time Source Procedure Growth Status 09/30/17 19:06 Blood Peripheral Aerobic Blood Culture - Preliminary NO GROWTH IN 4 DAYS Resulted 09/30/17 19:06 Blood Peripheral Anaerobic Blood Culture - Preliminary NO GROWTH IN 4 DAYS Resulted 10/01/17 13:00 Fluid Peritoneal Fluid Gram Stain - Final Complete 10/01/17 13:00 Fluid Peritoneal Fluid Body Fluid Culture - Final NO GROWTH IN 72 HRS.--AEROBICALLY OR ... Complete 09/30/17 10:45 Sputum Endotracheal Gram Stain - Final Complete 09/30/17 10:45 Sputum Endotracheal Sputum Culture - Final HEAVY GROWTH NORMAL RESPIRATORY MANUEL Complete 09/30/17 10:45 Urine Catheterized Urine Urine Culture - Final NO GROWTH IN 48 HOURS. Complete 09/15/17 08:31 Wound Abdomen Gram Stain - Final Complete 09/15/17 08:31 Wound Abdomen Wound Culture - Final NO GROWTH IN 72 HRS.--AEROBICALLY OR ... Complete . Imaging Last Impressions Chest X-Ray 10/03/17 0000 Signed Impressions: Service Date/Time: Tuesday, October 03, 2017 18:06 - CONCLUSION: Right subclavian catheter tip in the right atrium. No definite evidence of pneumothorax. Tae Roblero MD Abscess Drainage CT 10/01/17 0000 Signed Impressions: Service Date/Time: Sunday, October 01, 2017 12:30 - CONCLUSION: Uncomplicated CT guided drainage. Ross Flaherty MD Abdomen/Pelvis CT 09/30/17 0000 Signed Impressions: Service Date/Time: Saturday, September 30, 2017 11:53 - CONCLUSION: 1. There is a complex mesenteric collection containing high and low density fluid as well as scattered air bubbles in or 14.5 x 8.8 x 12.0 cm. This likely represents a walled-off perforation with possible formation of abscess. Clinical correlation is recommended. 2. Several mildly dilated loops of small bowel raising the possibility of partial small bowel traction. Clinical correlation is recommended. 3. Moderate amount of ascites within the upper abdomen. 4. Uncomplicated colonic diverticulosis. 5. Small left pleural effusion. 6. Bibasilar atelectasis. 7. Anasarca throughout the abdominal wall. Darion Oates MD Head CT 09/19/17 0000 Signed Impressions: Service Date/Time: Tuesday, September 19, 2017 15:54 - CONCLUSION: 1. No evidence of acute intracranial pathology. No masses are identified. 2. Bilateral mastoiditis Jens John MD Chest CT 09/19/17 0000 Signed Impressions: Service Date/Time: Tuesday, September 19, 2017 15:59 - CONCLUSION: 1. Multifocal areas of consolidation greatest in right lower lobe most characteristic of pneumonia. 2. Abnormal soft tissue density in the right axilla contiguous with abnormal soft tissue density and inflammatory change extending along the right lateral chest wall. This could represent hemorrhage and/or inflammatory change. There are no gas bubbles are infection cannot be excluded. 3. There is fluid again noted in the upper abdomen. 4. Moderate elevation of the right hemidiaphragm. Yuri Holt MD Abdomen Fluoroscopy 09/08/17 0000 Signed Impressions: Service Date/Time: Friday, September 08, 2017 12:04 - CONCLUSION: Uncomplicated nasogastric tube placement as above. Tae Archuleta Jr., MD . Procedures Laparoscopic vertical sleeve gastrectomy - 08/23/2017 Laparoscopic with lysis of adhesions, small bowel resection drainage of abscess - 09/08/2017 Percutaneous tracheostomy bronchoscopy - 09/23/17 Lines: Right IJ line d/c'd 09/20, New left SCV CVL placed 09/20 #11, d/c'd . New Right SCV CVL inserted 10/03.. Replace if recurring fever. . Patient/Family Conference Present at Family Conference: Palliative care will await contacting patient's spouse until the medical team has been able to speak with them regarding palliative consult. . Issues Discussed: Assessment and Plan Disease Oriented Problem List: (1) Ascites (2) Ileus following gastrointestinal surgery (3) Acute renal failure (4) Small bowel obstruction (5) Physical deconditioning Symptom Scale: (1) Pain 0-10 Scale: Unable to quantify Comment: Secondary to recent surgeries, generalize decline, bedbound status, infection, drains. (2) Dyspnea 0-10 Scale: Unable to quantify Comment: Remains on mechanical ventilation via tracheostomy . Pertinent Non-Medical Issues Psychosocial: . Spiritual: Moravian kirk. Legal: Patient currently incapacitated to make her own health care decisions, uncertain if she will regain capacity. According to [place] statutes, health care proxy decision-making falls to her spouse. Ethical issues impacting care: No known concerns at this time. . Important Contacts * Edgar Ramirez, /HCP: [phone] . Prognosis Mrs. Ramirez is a 61-year-old female who underwent gastric bypass surgery in August 2017 she has had complication including bowel obstruction secondary to gangrenous small bowel with abscess, fistula, sepsis and respiratory failure. Patient remains critically ill in ICU. Will likely have ongoing complications including recurrent infection/sepsis. Overall prognosis appears poor. . Code Status: Full Code Plan * Decision Maker: Patient currently incapacitated to make her own health care decisions, uncertain if she will regain capacity. According to [place] statutes , health care proxy decision-making falls to her spouse. * FULL CODE * Palliative care will attempt to clarify goals in the coming days. Will await making contact with family until surgical or intensive care team is able to introduce palliative care service. I will be off 10/05/17. * Diane Archuleta LCSW will reach out to medical team on 10/05/17 to see if they have spoken with spouse and will arrange family meeting 10/06/17 upon my return. * SYMPTOMS: Pain: due to recent surgeries, fistula, abscess, drains, debility and prolonged hospitalization. Has PRN Fentanyl, sparing need. Dysp[facility]: [facility]ach. Appears comfortable. No new medication recommendations at this time. * Palliative care number provided. * Palliative care will continue to follow throughout hospital course to assist with symptom management and clarification of goals as needed. . Thank you for the opportunity to participate in the care of Ms. Ramirez. Attestation To help prompt me to consider important information that might be impacting today's encounter and assessment, information from prior notes written by myself or my colleagues may have been "brought forward" into today's note. My signature on this note, however, is an attestation that I personally performed the exam, history, and/or decision-making noted today, and, unless otherwise indicated, the interactions with patient, family, and staff as well as the review of records all occurred today. I also attest that the listed assessment and stated plan reflect my best clinical judgment today based on the combination of historical information, prior notes, and today's exam/ interactions. When time spent is documented, it refers only to time spent today by the signer, or if indicated, combined time spent today by collaborating physician/nurse practitioner. Cristal Whalen Oct 04, 2017 18:33
--- NOTE | 2017-10-04 18:43 | HHI.HCPN ---
6;40pm: call from Dr. Landin to report he has spoken with family of Mrs. Ramirez and they would like to meet with Palliative care and Dr. Landin on 10/05/17 at 10:30am in [facility]. Advised I will be off but one of the palliative care medical team members and Diane Archuleta LCSW will be there. . Cristal Whalen Oct 04, 2017 18:43
[2017-10-04] MEDS: RESP: ALBUTEROL 2.5 MG/IPRATROPIUM 0.5 MG NEB (PRN) NEB (20:07)
[2017-10-04] MEDS: MULTIVITAMIN INJ 10 ML, FOLIC ACID INJ 1 MG, INSULIN HUMAN REGULAR INJ 40 UNITS in AMIN... IV-CENTRAL SCH (21:18)
[2017-10-05] VITALS (13 sets, daily range): BP systolic 100–152; BP diastolic 51–71; PULSE 76–100; RESP 12–28; TEMP 98.7–100; O2SAT 97–100
[2017-10-05] MEDS: INSULIN ASPART SUPPLEMENTAL SCALE SQ SCH ×2 (00:30→07:51)
[2017-10-05] MEDS: ALBUMIN 25% INJ 100 ML IV SCH ×2 (00:43→09:29)
[2017-10-05] MEDS ORDERED: SODIUM CHLOR 0.9% 1000 ML INJ 1,000 ML IV ONE (04:30)
[2017-10-05] MEDS ORDERED: DIATRIZOATE MEGLUM/DIATRIZOATE SOD 9 ML CUP PO ONE (04:30)
[2017-10-05] MEDS ORDERED: PHENYLEPHRINE INJ 160 MG in DEXTROSE 5% IN WATE 500 ML INJ 484 ML IV PRN ×2 (04:30)
[2017-10-05] MEDS ORDERED: TERBUTALINE INJ 1 MG/ML AMP SQ PRN (04:30)
[2017-10-05 04:33] LABS: AUTOMATED NEUTROPHIL # 5.3 TH/MM3 (1.8-7.7); BASOPHIL % 0.5 % (0.0-2.0); EOSINOPHIL # 0.3 TH/MM3 (0-0.4); EOSINOPHIL % 4.8 % (0.0-4.0); HEMO FLAGS DIFF FINAL; LYMPH % 10.8 % (9.0-44.0); LYMPHOCYTE # 0.8 TH/MM3 (1.0-4.8); MEAN CELL VOLUME 90.2 FL (80.0-100.0); MEAN CORPUSCULAR HEMOGLOBIN 30.1 PG (27.0-34.0); MEAN CORPUSCULAR HGB CONC 33.4 % (32.0-36.0); NEUT % 75.9 % (16.0-70.0); PLATELET COUNT 210 TH/MM3 (150-450); RED BLOOD COUNT 2.17 MIL/MM3 (4.00-5.30); RED CELL DISTRIBUTION WIDTH 14.9 % (11.6-17.2)
[2017-10-05 04:39] LABS: HEMATOCRIT 19.6 % (35.0-46.0)
[2017-10-05 04:42] LABS: APTT (PATIENT) 22.4 SEC (24.3-30.1); INTERNATIONAL NORMALIZED RATIO 1.2 RATIO; PROTHROMBIN TIME - PATIENT 11.8 SEC (9.8-11.6)
[2017-10-05 05:00] LABS: BICARBONATE 20.3 MEQ/L (21.0-32.0); POTASSIUM 3.5 MEQ/L (3.5-5.1)
[2017-10-05] MEDS: LEVOTHYROXINE SODIUM 50 MCG TAB PO SCH (06:00)
--- NOTE | 2017-10-05 06:11 | RADRPT ---
EXAM DATE/TIME: 10/05/2017 05:24 [facility] COMPARISON: CT ABDOMEN & PELVIS W/O CONTRAST, September 30, 2017, 11:53. INDICATIONS : Patient bleeding excessively from right lower quadrant ROSSI drain. ORAL CONTRAST: No oral contrast ingested. RADIATION DOSE: 30.56 CTDIvol (mGy) ; Patient body habitus MEDICAL HISTORY : Polymyalgia rheumatica. SURGICAL HISTORY : Gastric bypass. Cholecystectomy.Recent abscess drainage. ENCOUNTER: Initial ACUITY: 1 day PAIN SCALE: Non-responsive LOCATION: Right lower quadrant TECHNIQUE: Volumetric scanning of the abdomen and pelvis was performed. Using automated exposure control and ad justment of the mA and/or kV according to patient size, radiation dose was kept as low as reasonably achievable to obtain optimal diagnostic quality images. DICOM format image data is available electro nically for review and comparison. FINDINGS: LOWER LUNGS: There are mild bilateral pleural effusions being greater on the right with accompanying areas of atel ectasis or consolidation at the bases. LIVER: Homogeneous density without lesion. There is no dilation of the biliary tree. No calcified gallston es. There is fluid seen around the liver. SPLEEN: Normal size without lesion. There is fluid seen around the spleen. PANCREAS: Within normal limits. KIDNEYS: Normal in size and shape. There is no mass, stone, or hydronephrosis. ADRENAL GLANDS: Within normal limits. VASCULAR: There is no aortic aneurysm. BOWEL/MESENTERY: There is a persistent 16.4 x 10 cm mass seen in the lower abdomen/upper pelvic region and mesentery. This appears to be enlarged. There is free fluid seen around the liver and spleen. There is a drain s een in the upper abdomen. Significant fluid is not seen around the superior drain. There is a more in ferior drain seen in the right lower quadrant. Significant fluid is also now seen around this drain. ABDOMINAL WALL: No hernia seen. There does appear to be edema within the lateral subcutaneous soft tissues and at the left groin. RETROPERITONEUM: There is no lymphadenopathy. BLADDER: No wall thickening or mass. REPRODUCTIVE: No mass is seen within the pelvis. INGUINAL: There is no lymphadenopathy or hernia. MUSCULOSKELETAL: There is degenerative change in the lumbar spine. CONCLUSION: 1. Persistent large mass in the lower abdomen upper pelvic region. This could represent a tumor. Larg er ovary mass is free fluid extended to the lower abdomen. It is nonspecific. 2. [address] without significant fluid around these drains. There does continue to be flu id around the liver and spleen. 3. Mild bilateral pleural effusions with accompanying atelectasis or consolidation. Damian Vang MD on October 05, 2017 at 6:01 Board Certified Radiologist. This report was verified electronically.
[2017-10-05] MEDS: DEXTROSE 5% IN WATE 1000ML INJ 1,000 ML IV SCH (06:54)
[2017-10-05] MEDS ORDERED: HYDROmorphone HCL PF 2 MG/ML VIAL IV PUSH PRN ×3 (07:15→12:15)
--- NOTE | 2017-10-05 07:17 | HHI.CCPN ---
Subjective Remarks/Hospital Course Note for 09/28/17: 61-year-old morbidly obese female presents, patient of Dr. Epstein, status post gastric sleeve 08-22-17 now presents with nonbloody emesis and unable to have a bowel movement for a couple days. She states to get that bowel movement she had a use a glycerin suppository and it was just loose. He was taken emergently to operating room and was found to have a small bowel ischemia. She underwent laparoscopic small bowel resection by Dr. Epstein and is postoperatively admitted to critical care unit SUBJ 09/09/17: Remains very critically ill. Profound septic shock requiring Levophed at 40 mcg/m, Des-Synephrine at 500 mcg/m, vasopressin at 0.04 international units, and to be demand 5 g per KG per minute. Urine output 150 mL overnight. Maintaining oxygen saturation. A.m. labs are pending at this time. Surprisingly patient is still mentating able to communicate. Remains on IV fentanyl infusion for pain control. Operative report is pending at this time. Received total of 9 L of crystalloid postoperatively. Receiving 2 units of PRBC. I will replace calcium. Lactic acid 3.5 at 4 AM 09/10: Critically ill but stable. Levophed down to 12 mcg/min, vasopressin at 0.04 IU. Uo 650 ml in 24 hours, bilateral abdominal drains with 1 L output. Right drain had greenish output overnight and now serosanguineous. D/ W Dr Epstein- he confirms perforation and gross contamination 09/11: Remains critically. FiO2 requirement up to 60%, I have increased PEEP to 10. CXR consistent with ARDS versus fluid overload. Creatinine increased to 1.24. Urine output 600 ml in 24 hours. CVP 18-20. Start IV Bumex 1 mg every 12 hours with additional 1 mg dose now. Levophed at 1 mcg/min, vasopressin at 0.04 IU 09/12: remains critically ill but stable to improving. SBP 130-140 on vasopressin will DC vasopressin. Chest x-ray shows bilateral pulmonary edema, but oxygenation has improved. Stable on 50% and PEEP of 10. Creatinine has worsened to 1.67 but urine output 1.5 L in 24 hours with Bumex. CVP remains about 20. Will increase Bumex to 1 mg every 8 hours and give additional 1 mg now. Closely monitor creatinine. 09/13: Weaning off vasopressors. SHEA persists. CXR with diffuse infiltrates , will switch modes for better recruitment hopefully. 09/14: Gas exchange improved on APRV. Renal function deteriorating. Remains fluid overloaded. 09/15: Gas exchange improved but renal function continues to deteriorate. Continue APRV - bases struggle for domain. 09/16: remains fairly encephalopathic, likely hypoactive delirium. renal function still worse today, although ? peaked?. continue APRV: body habitus would make de-recruitment almost certain if we switch to conventional mode of ventilation. still diuresing well. 09/17: creatinine continues to worsen despite adequate diuresis. BP lower today. will hold lasix drip. off all sedation x 12h and still remains encephalopathic, not following commands. may need renal replacement therapy at some point. severe electrolyte derrangements due to diuresis, and free water deficit. 09/18: Cr slightly downtrended. mental status still poor. long discussion with family and multiple members updated. remains off sedation. continuing to hold diuresis. 09/19: Cr still slightly downtrended. surgery concerned possible tube feeds in ROSSI drain after starting trickle TF yesterday. also, patient had more labored breathing on vent. etco2 70s, worsening hypercarbia and peak pressures. changed vent modes temporarily, increased minute ventilation, improved pco2, but then patient became acutely hypotensive. stat CXR ordered. clinically worse today. in addition, still no improvements in mental status. CT abd/pelvis with PO contrast ordered as well as CT brain. 09/20: CXR clear, will convert back to spontaneous ventilation to avoid CO2 retention. Marked azotemia, likely contributing to obtundation. BUN > 130. 09/21: Oxygenation remains improved. Peripheral edema resolving. Azotemia persists. BUN > 140 today. 09/22: Slightly improving enough renal functions. H&H critical, no signs of active bleeding, more likely iatrogenic due to frequent blood draws and dilutional. 09/23: s/p trach in OR today. hgb improved. renal function improving. organs are stable enough for transfer to LTAC. needs slow wean with lots of pulmonary rehab. 09/24: still putting out 300cc/24h out of right ROSSI, with bile. mental status improving, slowly. 09/25: Improved neurological function. Controlled fistula. 09/26: Remains on mechanical ventilation via tracheostomy. Daily C Pap trials ongoing. On TPN. 09/27: No leukocytosis and fistula appears well controlled. LTAC will be good transfer for ongoing vent weaning. 09/28: Low grade fever but no leukocytosis. Stable hemodynamics. Abdomen benign. All cultures NG. 09/29: Tolerating C Pap trials. Chest x-ray shows bilateral effusions. Initiating diuresis mobilize fluid. More awake, follows commands however extremely weak and extremities. Remains on TPN. Subjective: 09/30 Bleeding noted in ROSSI overnight, Hgb 5.7. Three units PRBC ordered and 1 unit infusing when am labs drawn in which Hgb was 5.7. Currently receiving 3rd unit of PRBC. Dr. Hernandez updated overnight. Now ROSSI no longer having output, obtaining CT abd/pelvis. Tachypneic, tachycardic in 108, BP 96/53. No BM. 10/01: Back on vent support. Required several transfusions over past 24 hours. Drainage minimal. 10/02: Percutaneous abdominal drained placed in IR 10/01. Hgb stable since immediately after. Azotemia developing. Lung volumes reduced on CXR. 10/03: Azotemia persists. Continue free water. 10/04: Urine output is copious, cause unclear. Glucose well controlled and no diuretics. Hgb without change. 10/05: Conference call with and 's brother last night. We will meet with Palliative Care team this morning. Patient is deteriorating rapidly with ongoing bleeding. Objective Vital Signs Date Time Temp Pulse Resp B/P (MAP) Pulse Ox O2 Delivery O2 Flow Rate FiO2 10/05/17 05:10 100 100 10/05/17 00:00 10/04/17 22:00 84 10/04/17 20:00 100.4 26 10/03/17 09:02 Ventilator Intake and Output 10/05/17 10/05/17 10/06/17 08:00 16:00 00:00 Intake Total 975 ml Balance 975 ml Result Diagram: 10/05/17 0415 10/05/17 0415 Imaging Last 48 hours Impressions Chest X-Ray 09/29/17 0000 Signed Impressions: Service Date/Time: Friday, September 29, 2017 11:31 - CONCLUSION: 1. Cardiomegaly with bilateral effusions and interstitial prominence consistent with congestive failure. 2. The tip of the endotracheal tube is not visualized due to technique. If further assessment of this is desired repeat exam could be attempted. 3. Appearance of the parenchyma has worsened compared to prior. Haris Mcfarland MD Objective Remarks GENERAL: morbidly obese, pale and critically ill appearing female SKIN: Dry. Serous clear blisters in right lower abdomen. HEAD: Normocephalic. EYES: Pupils 2 mm and sluggishly reactive. Anicteric. Pale conjunctiva NECK: Trachea midline. Proximal XL T trach in place, no exudate or bleeding CARDIOVASCULAR: Tachycardic, regular, sinus tach on the monitor. Heart sounds distant. No murmur rub or gallop appreciated. JVD difficult to assess due to body habitus. RESPIRATORY: Tachypneic, equal breath sounds bilaterally, persistent scattered rhonchi. PRVC PEEP 10. GASTROINTESTINAL: Abdomen moderately distended, obese, abdominal wall edema/ anasarca present with significant dependent edema RLQ. ROSSI in RLQ with minimal bloody output and clots. Bag in place around ROSSI site, no drainage currently ( reportedly previously bilious appearing drainage). Right side drain with dark old blood only, no fresh blood. MUSCULOSKELETAL: No cyanosis. 2+ edema, diffuse. NEURO EXAM: Eyes open spontaneously , makes eye contact, +/- nod to voice. Very weak movement of fingers and toes to noxious stimuli. A/P Assessment and Plan Assessment: 61yF s/p gastric bypass complicated by small bowel obstruction, intra-abdominal sepsis, persistent respiratory failure, volume overload. remains off pathway. s/p trach. Now with acute blood loss anemia, bleeding from ROSSI stopped. New drain with old blood, no fresh bleeding.. A/P: NEURO: Seizure disorder Metabolic encephalopathy Hypoactive Delirium - Currently off all sedation - Keppra 500 IV q12. - fentanyl prn for positioning. - haldol for agitation - has been on provigil for wakefulness. RESP: Acute hypoxemic respiratory failure - persistent, stable. ARDS HCAP with E Coli - Continue mechanical ventilation - Vent bundle - DuoNeb every 6 hours scheduled and when necessary - CXR 09/29 - Bilateral effusions, bilateral perihilar opacities. - Tracheostomy by Dr. Preciado 09/23 - Slow vent weaning, will eventually need LTAC when stabilized. - Tolerating SBTs very well. CVS: Septic shock-resolved. Lactic acidosis - resolved. Recurrent Hypotension, secondary to acute blood loss - s/p Aggressive IV fluid resuscitation, postop received 9 L of normal saline, 2 units of PRBC - s/p hydrocortisone taper completed 09/18. - Diuresis with lasix initiated 09/29. Will hold currently due to active bleeding, will use intermittently following transfusion when intravascularly resuscitated. GI: Small bowel ischemia/Perforation Peritonitis Bile leak Bleeding - S/P Laparoscopic SBR for gangrenous small bowel - Post op surgical management per Dr. Epstein general surgery - Nepro trickle feeds on hold, diet management per general surgery. - IV Protonix. Started TPN 09/10/17 - ct abd/pelvis with PO contrast showing no abscess 09/19 - ROSSI management per gen surgery. FEN: Hypernatremia Free water deficit Hypokalemia Hypomagnesemia - electrolyte replacement as needed. - TPN 75 ml/hr. D5W 42 ml/hr - Daily BMP : Acute kidney failure - improving. Contraction alkalosis - improving. - ATN most likely from severe septic shock. Had been improving, uptrend this morning. - Maintain Bedolla for accurate intake output - Rising BUN again, acts prerena but urine > 60/hr HEME: Anemia secondary to acute blood loss - Platelet count normal. INR 1.2 - Hgb 5.7. Transfusing 3 units PRBC and will monitor Hgb q6 hours. 2 units FFP on hold. Was on Lovenox 60 q12 since 09/26. Now on hold after bleed. ID: Septic shock - resolved. Peritonitis HCAP with E Coli - resolved Leukocytosis. - Sputum culture 09/08 E Coli - Blood cultures, urine culture from 09/27 negative. - ID following, Dr. Enriquez. - Continue Zosyn. Panculture. Broaden abx if clinical worsening/eo infection. ENDO: Diabetes mellitus Hypocalcemia - Insulin sliding scale, and IV insulin with TPN - Electrolyte replacement per protocol - Continue levemir 18 units subcut bid - po synthroid now that gut function improving. DVT GI prophylaxis - Teds SCDs - Pharmacological DVT prophylaxis - Protonix Lines: Right IJ line d/c'd 09/20, New left SCV CVL placed 09/20 #11, d/c'd . New Right SCV CVL inserted 10/03.. Replace if recurring fever. Patient is critically ill with recent active bleeding and acute symptomatic blood loss anemia. Currently hypotension is responsive to transfusion. She is at high risk for further deterioration. Overall impression: Critically ill but stabilizing now. Long-term prognosis is poor. is discussing options with family. Have requested Palliative Care consult and will meet this morning. Because of her intra-abdominal pathology and associated medical problems she will not survive this hospitalization. We will not even get her stable enough to transfer to a LTAC. Jose Landin MD Oct 05, 2017 07:17
[2017-10-05] MEDS: DEXTROSE 10% INJ 500 ML IV SCH (07:30)
[2017-10-05] MEDS: CHLORHEXIDINE 0.12% (ORAL KIT) 15 ML CUP MT SCH (08:00)
[2017-10-05] MEDS: levETIRAcetam INJ 500 MG in SODIUM CHLORIDE 0.9% INJ 100 ML IV SCH (09:00)
[2017-10-05] MEDS: ARTIFICIAL TEARS OPTH SOLN 15 ML BTL EACH EYE SCH ×2 (09:00→13:00)
[2017-10-05] MEDS: SODIUM CHLORIDE 0.9% FLUSH 10 ML FLUSH IV FLUSH SCH (09:00)
[2017-10-05] MEDS: INSULIN DETEMIR 100 UNITS/ML VIAL SQ SCH (09:00)
[2017-10-05] MEDS: PANTOPRAZOLE SODIUM 40 MG VIAL IV PUSH SCH (09:30)
--- NOTE | 2017-10-05 11:02 | HHI.PR ---
Subjective Subjective Notes Currently on full vent support and low dose pressors after bleeding events from last night Objective Vitals/I&O Vital Signs Date Time Temp Pulse Resp B/P (MAP) Pulse Ox O2 Delivery O2 Flow Rate FiO2 10/05/17 08:30 100.0 76 20 112/55 98 10/05/17 08:23 30 10/03/17 09:02 Ventilator Labs Laboratory Tests Test 10/05/17 04:15 White Blood Count 7.0 Red Blood Count 2.17 Hemoglobin 6.5 Hematocrit 19.6 Mean Corpuscular Volume 90.2 Mean Corpuscular Hemoglobin 30.1 Mean Corpuscular Hemoglobin Concent 33.4 Red Cell Distribution Width 14.9 Platelet Count 210 Mean Platelet Volume 8.0 Neutrophils (%) (Auto) 75.9 Lymphocytes (%) (Auto) 10.8 Monocytes (%) (Auto) 8.0 Eosinophils (%) (Auto) 4.8 Basophils (%) (Auto) 0.5 Neutrophils # (Auto) 5.3 Lymphocytes # (Auto) 0.8 Monocytes # (Auto) 0.6 Eosinophils # (Auto) 0.3 Basophils # (Auto) 0.0 CBC Comment DIFF FINAL Differential Comment Prothrombin Time 11.8 Prothromb Time International Ratio 1.2 Activated Partial Thromboplast Time 22.4 Fibrinogen 402 Blood Urea Nitrogen 120 Creatinine 2.02 Random Glucose 128 Calcium Level 8.5 Sodium Level 152 Potassium Level 3.5 Chloride Level 121 Carbon Dioxide Level 20.3 Anion Gap 11 Estimat Glomerular Filtration Rate 25 Lactic Acid Level 0.8 Random Vancomycin Level 28.1 Date/Time Source Procedure Growth Status 09/30/17 19:06 Blood Peripheral Aerobic Blood Culture - Preliminary NO GROWTH IN 4 DAYS Resulted 09/30/17 19:06 Blood Peripheral Anaerobic Blood Culture - Preliminary NO GROWTH IN 4 DAYS Resulted 10/01/17 13:00 Fluid Peritoneal Fluid Gram Stain - Final Complete 10/01/17 13:00 Fluid Peritoneal Fluid Body Fluid Culture - Final NO GROWTH IN 72 HRS.--AEROBICALLY OR ... Complete 09/30/17 10:45 Sputum Endotracheal Gram Stain - Final Complete 09/30/17 10:45 Sputum Endotracheal Sputum Culture - Final HEAVY GROWTH NORMAL RESPIRATORY MANUEL Complete 09/30/17 10:45 Urine Catheterized Urine Urine Culture - Final NO GROWTH IN 48 HOURS. Complete 09/15/17 08:31 Wound Abdomen Gram Stain - Final Complete 09/15/17 08:31 Wound Abdomen Wound Culture - Final NO GROWTH IN 72 HRS.--AEROBICALLY OR ... Complete Radiology Last Impressions Abdomen/Pelvis CT 10/05/17 0000 Signed Impressions: Service Date/Time: September 05:24 - CONCLUSION: 1. Persistent large mass in the lower abdomen upper pelvic region. This could represent a tumor. Larger ovary mass is free fluid extended to the lower abdomen. It is nonspecific. 2. [address] without significant fluid around these drains. There does continue to be fluid around the liver and spleen. 3. Mild bilateral pleural effusions with accompanying atelectasis or consolidation. Damian Vang MD Chest X-Ray 10/03/17 0000 Signed Impressions: Service Date/Time: Tuesday, October 03, 2017 18:06 - CONCLUSION: Right subclavian catheter tip in the right atrium. No definite evidence of pneumothorax. Tae Roblero MD Abscess Drainage CT 10/01/17 0000 Signed Impressions: Service Date/Time: Sunday, October 01, 2017 12:30 - CONCLUSION: Uncomplicated CT guided drainage. Ross Flaherty MD Head CT 09/19/17 0000 Signed Impressions: Service Date/Time: Tuesday, September 19, 2017 15:54 - CONCLUSION: 1. No evidence of acute intracranial pathology. No masses are identified. 2. Bilateral mastoiditis Jens John MD Chest CT 09/19/17 0000 Signed Impressions: Service Date/Time: Tuesday, September 19, 2017 15:59 - CONCLUSION: 1. Multifocal areas of consolidation greatest in right lower lobe most characteristic of pneumonia. 2. Abnormal soft tissue density in the right axilla contiguous with abnormal soft tissue density and inflammatory change extending along the right lateral chest wall. This could represent hemorrhage and/or inflammatory change. There are no gas bubbles are infection cannot be excluded. 3. There is fluid again noted in the upper abdomen. 4. Moderate elevation of the right hemidiaphragm. Yuri Holt MD Abdomen Fluoroscopy 09/08/17 0000 Signed Impressions: Service Date/Time: Friday, September 08, 2017 12:04 - CONCLUSION: Uncomplicated nasogastric tube placement as above. Tae Archuleta Jr., MD Cardiovascular: Regular Lungs: Rhonchi Abdomen: Other (firm with absent bowel sounds) Extremities: Perfused Wound Wound : Wound Location: Abdomen (Large amount of continued dark drainage from right ROSSI drain) A/P Assessment and Plan 61yo F with small bowel perforation and peritonitis After meeting today at 10:30am with Dr. Landin and Palliative care team, family wishes to proceed with withdrawal of care. Considering current events and patient prognosis, this is appropriate D/W RN, Dr. Landin, Dr. Hernandez, palliative care team and family Flower Gomez Oct 05, 2017 11:02
[2017-10-05] MEDS ORDERED: HYDROmorphone HCL PF 2 MG/ML VIAL IV PUSH ONE ×2 (11:45→12:15)
[2017-10-05] MEDS ORDERED: MIDAZOLAM HCL 5 MG/ML VIAL (1 ML) IV PUSH ONE ×2 (11:45→12:15)
[2017-10-05] MEDS ORDERED: HYOSCYAMINE 0.5 MG/ML AMP IV PUSH ONE (11:45)
[2017-10-05] MEDS ORDERED: MIDAZOLAM HCL 2 MG/2 ML VIAL IV PUSH SCH (12:00)
[2017-10-05] MEDS ORDERED: MIDAZOLAM HCL 2 MG/2 ML VIAL IV PUSH PRN (12:00)
[2017-10-05] MEDS ORDERED: HYOSCYAMINE 0.5 MG/ML AMP IV PUSH PRN (12:15)
[2017-10-05] MEDS ORDERED: FUROSEMIDE 20 MG/2 ML VIAL IV PUSH PRN (12:15)
--- NOTE | 2017-10-05 12:51 | HHI.HCPN ---
Reason for visit a. To assist with evaluation and management of symptoms including: dyspnea, pain. b. To assist medical decision maker(s) with: better understanding of current medical conditions; weighing benefits/burdens of medical treatment options; making medical treatment decisions. . Subjective/Interval History Mrs. Ramirez is a 61-year-old female who underwent gastric bypass surgery in August 2017 she has had complication including bowel obstruction secondary to gangrenous small bowel with abscess, fistula, sepsis and respiratory failure. Patient remains critically ill in ICU. Will likely have ongoing complications including recurrent infection/sepsis. Overall prognosis appears poor. Palliative care following for further clarifications of goals of care given the above. Patient seen in surgical ICU. Remains on mechanical ventilation via tracheostomy. FiO2 30%, breathing above the vent at a rate of 25-30 RPM. Not opening eyes to verbal or tactile stimuli, not following commands. Appears calm. Max temperature today 100.0, currently on vasopressor for SBP in the 80s. Hemoglobin 6.5 this morning, patient was transfused for PRBC and 1 FFP. NG tube was replaced, approximately 300 mL of dark bloody discharge noted. Follow-up abdomen/pelvis CT revealing persistent large mass in the lower abdomen upper pelvic region, may represent a tumor. Free fluid extended to the lower abdomen. Case discussed in great detail with Dr. Landin and JOHN Gomez, patient rapidly deteriorating with ongoing bleeding and not likely to survive this hospitalization. Family meeting. In attendance patient's Mr. Ramirez, 's brother Dr. Ramirez (retired political organizer), patient's brother Addy Gutierres, pt 's sister Kiana Goss and nephew Manuel. Jason Gong, pall care to include psychiatric social worker Diane Archuleta and Gwyn LOPEZ. Dr. Mariano provided updating patient's medical condition, reviewed clinical course and complications. Discussed rapidly deterioration with ongoing bleeding. Reviewed overall poor prognosis given the above. Reviewed continuation of current medical management versus transition patient to comfort-directed care/ compassionate withdrawal life support given very poor prognosis and ongoing clinical decline. Family electing to transition patient given patient's known wishes. Anticipatory guidance provided. Spiritual services offered and declined. Ongoing emotional support and active listening provided to patient's family. Case discussed with bedside RN. Exhibits B&C sign. Comfort set orders placed. . Family/friend interactions See interval note. . Advance Directives Living Will: Never completed Health Care Surrogate: Never completed Durable Power of Pega Developer: Never completed Advance Directive Specifics Health Care Surrogate(s): Patient currently incapacitated to make her own health care decisions, uncertain if she will regain capacity. According to [place] statutes, health care proxy decision-making falls to her spouse. . Significant change in goals: Family electing to transition patient to comfort-directed care/withdrawal life support given very poor prognosis. . Objective Vital Signs Date Time Temp Pulse Resp B/P (MAP) Pulse Ox O2 Delivery O2 Flow Rate FiO2 10/05/17 12:00 79 10/05/17 12:00 30 10/05/17 12:00 98.9 79 19 134/61 (85) 100 10/05/17 11:06 100 30 10/05/17 10:50 76 142/63 10/05/17 10:00 76 10/05/17 08:30 100.0 76 20 112/55 98 10/05/17 08:23 99 30 10/05/17 08:15 76 86/51 10/05/17 08:12 19 10/05/17 08:00 100.0 76 20 100/51 (67) 98 10/05/17 08:00 30 10/05/17 08:00 76 10/05/17 07:45 100.0 86 28 100/51 99 10/05/17 07:45 100.0 86 28 100/51 99 10/05/17 06:00 100 10/05/17 05:10 100 100 10/05/17 04:39 100 30 10/05/17 04:04 97 30 10/05/17 04:00 98.7 88 12 152/71 (98) 97 10/05/17 04:00 30 10/05/17 04:00 88 10/05/17 02:00 80 10/05/17 00:00 10/05/17 00:00 30 10/04/17 23:24 97 30 10/04/17 22:00 84 10/04/17 20:05 96 30 10/04/17 20:00 81 10/04/17 20:00 30 10/04/17 20:00 100.4 81 26 152/71 (98) 96 10/04/17 18:00 101 10/04/17 16:05 95 30 10/04/17 16:00 100 10/04/17 16:00 30 10/04/17 16:00 100.0 86 31 158/74 (102) 96 10/04/17 14:00 86 10/04/17 13:06 97 30 Intake & Output 10/05/17 10/05/17 07:00 19:00 Intake Total 975 ml 2318 ml Output Total 6235 ml Balance -5260 ml 2318 ml IV Total 1200 ml Packed Cells 800 ml 800 ml FFP 318 ml Blood Product IV Normal Saline Flush 175 ml Output Urine Total 2400 ml Gastric Drainage Total 100 ml Drainage Total 3735 ml # Bowel Movements 0 Physical Exam CONSTITUTIONAL/GENERAL: This is morbid obese, critically ill patient, in no acute distress. TUBES/LINES/DRAINS: NG tube, tracheostomy, right subclavian central line, PIV right, right lower quadrant ROSSI drain, Bedolla, SCD's. SKIN: Pale. Large areas of ecchymoses on upper extremities. Skin temperature appropriate. Not diaphoretic. HEAD: Atraumatic. Normocephalic. EYES: Pupils equal, sluggish. Extraocular motions intact. No scleral icterus. No injection or drainage. ENT: Hearing grossly normal. Nose without bleeding or purulent drainage. Moist oral mucosa. NG tube with large amounts of dark, bloody output. NECK: Trachea midline. Tracheostomy in place. CARDIOVASCULAR: Regular rate and rhythm. No JVD. Week pedal pulses. Anasarca. RESPIRATORY/CHEST: Symmetric, unlabored respirations. Coarse breath sounds bilaterally. On mechanical ventilation via tracheostomy. Breathing over the vent, rate in the mid 20s. GASTROINTESTINAL: Abdomen obese, large, distended. Hypoactive bowel sounds, ROSSI drainage with serosanguineous fluid. GENITOURINARY: Without palpable bladder distension. Bedolla catheter in place. MUSCULOSKELETAL: Extremities without clubbing, cyanosis. No mottling or clubbing. NEUROLOGICAL: Not opening eyes to verbal or tactile stimuli. Not following commands. PSYCHIATRIC: Able to evaluate given the above. . Diagnostic Tests Laboratory Laboratory Tests Test 10/02/17 20:10 10/03/17 04:26 10/03/17 14:13 10/03/17 20:22 Hemoglobin 8.0 GM/DL (11.6-15.3) 8.3 GM/DL (11.6-15.3) 8.2 GM/DL (11.6-15.3) 8.0 GM/DL (11.6-15.3) Hematocrit 23.4 % (35.0-46.0) 24.6 % (35.0-46.0) 24.4 % (35.0-46.0) 23.3 % (35.0-46.0) Blood Urea Nitrogen 133 MG/DL (7-18) Creatinine 2.33 MG/DL (0.50-1.00) Random Glucose 151 MG/DL (74-106) Calcium Level 8.9 MG/DL (8.5-10.1) Sodium Level 149 MEQ/L (136-145) Potassium Level 3.8 MEQ/L (3.5-5.1) Chloride Level 117 MEQ/L (98-107) Carbon Dioxide Level 19.3 MEQ/L (21.0-32.0) Anion Gap 13 MEQ/L (5-15) Estimat Glomerular Filtration Rate 21 ML/MIN (>89) Test 10/04/17 03:46 10/05/17 04:15 White Blood Count 7.3 TH/MM3 (4.0-11.0) 7.0 TH/MM3 (4.0-11.0) Red Blood Count 2.62 MIL/MM3 (4.00-5.30) 2.17 MIL/MM3 (4.00-5.30) Hemoglobin 8.0 GM/DL (11.6-15.3) 6.5 GM/DL (11.6-15.3) Hematocrit 23.8 % (35.0-46.0) 19.6 % (35.0-46.0) Mean Corpuscular Volume 91.0 FL (80.0-100.0) 90.2 FL (80.0-100.0) Mean Corpuscular Hemoglobin 30.5 PG (27.0-34.0) 30.1 PG (27.0-34.0) Mean Corpuscular Hemoglobin Concent 33.5 % (32.0-36.0) 33.4 % (32.0-36.0) Red Cell Distribution Width 15.5 % (11.6-17.2) 14.9 % (11.6-17.2) Platelet Count 239 TH/MM3 (150-450) 210 TH/MM3 (150-450) Mean Platelet Volume 9.1 FL (7.0-11.0) 8.0 FL (7.0-11.0) Neutrophils (%) (Auto) 77.0 % (16.0-70.0) 75.9 % (16.0-70.0) Lymphocytes (%) (Auto) 9.7 % (9.0-44.0) 10.8 % (9.0-44.0) Monocytes (%) (Auto) 9.4 % (0.0-8.0) 8.0 % (0.0-8.0) Eosinophils (%) (Auto) 3.4 % (0.0-4.0) 4.8 % (0.0-4.0) Basophils (%) (Auto) 0.5 % (0.0-2.0) 0.5 % (0.0-2.0) Neutrophils # (Auto) 5.7 TH/MM3 (1.8-7.7) 5.3 TH/MM3 (1.8-7.7) Lymphocytes # (Auto) 0.7 TH/MM3 (1.0-4.8) 0.8 TH/MM3 (1.0-4.8) Monocytes # (Auto) 0.7 TH/MM3 (0-0.9) 0.6 TH/MM3 (0-0.9) Eosinophils # (Auto) 0.2 TH/MM3 (0-0.4) 0.3 TH/MM3 (0-0.4) Basophils # (Auto) 0.0 TH/MM3 (0-0.2) 0.0 TH/MM3 (0-0.2) CBC Comment DIFF FINAL DIFF FINAL Differential Comment Blood Urea Nitrogen 139 MG/DL (7-18) 120 MG/DL (7-18) Creatinine 2.22 MG/DL (0.50-1.00) 2.02 MG/DL (0.50-1.00) Random Glucose 154 MG/DL (74-106) 128 MG/DL (74-106) Calcium Level 8.7 MG/DL (8.5-10.1) 8.5 MG/DL (8.5-10.1) Sodium Level 150 MEQ/L (136-145) 152 MEQ/L (136-145) Potassium Level 3.6 MEQ/L (3.5-5.1) 3.5 MEQ/L (3.5-5.1) Chloride Level 118 MEQ/L (98-107) 121 MEQ/L (98-107) Carbon Dioxide Level 20.8 MEQ/L (21.0-32.0) 20.3 MEQ/L (21.0-32.0) Anion Gap 11 MEQ/L (5-15) 11 MEQ/L (5-15) Estimat Glomerular Filtration Rate 22 ML/MIN (>89) 25 ML/MIN (>89) Random Vancomycin Level 21.7 COMMENT 28.1 COMMENT Prothrombin Time 11.8 SEC (9.8-11.6) Prothromb Time International Ratio 1.2 RATIO Activated Partial Thromboplast Time 22.4 SEC (24.3-30.1) Fibrinogen 402 mg/dL (227-377) Lactic Acid Level 0.8 mmol/L (0.4-2.0) Result Diagram: 10/05/17 0415 10/05/17 0415 Microbiology Microbiology Date/Time Source Procedure Growth Status 09/30/17 19:06 Blood Peripheral Aerobic Blood Culture - Final NO GROWTH IN 5 DAYS Complete 09/30/17 19:06 Blood Peripheral Anaerobic Blood Culture - Final NO GROWTH IN 5 DAYS Complete 10/01/17 13:00 Fluid Peritoneal Fluid Gram Stain - Final Complete 10/01/17 13:00 Fluid Peritoneal Fluid Body Fluid Culture - Final NO GROWTH IN 72 HRS.--AEROBICALLY OR ... Complete 09/30/17 10:45 Sputum Endotracheal Gram Stain - Final Complete 09/30/17 10:45 Sputum Endotracheal Sputum Culture - Final HEAVY GROWTH NORMAL RESPIRATORY MANUEL Complete 09/30/17 10:45 Urine Catheterized Urine Urine Culture - Final NO GROWTH IN 48 HOURS. Complete 09/15/17 08:31 Wound Abdomen Gram Stain - Final Complete 09/15/17 08:31 Wound Abdomen Wound Culture - Final NO GROWTH IN 72 HRS.--AEROBICALLY OR ... Complete Imaging Last 24 hours Impressions Abdomen/Pelvis CT 10/05/17 0000 Signed Impressions: Service Date/Time: September 05:24 - CONCLUSION: 1. Persistent large mass in the lower abdomen upper pelvic region. This could represent a tumor. Larger ovary mass is free fluid extended to the lower abdomen. It is nonspecific. 2. [address] without significant fluid around these drains. There does continue to be fluid around the liver and spleen. 3. Mild bilateral pleural effusions with accompanying atelectasis or consolidation. Damian Vang MD Procedures Laparoscopic vertical sleeve gastrectomy - 08/23/2017 Laparoscopic with lysis of adhesions, small bowel resection drainage of abscess - 09/08/2017 Percutaneous tracheostomy bronchoscopy - 09/23/17 Lines: Right IJ line d/c'd 09/20, New left SCV CVL placed 09/20 #11, d/c'd . New Right SCV CVL inserted 10/03.. Replace if recurring fever. . Assessment and Plan Disease Oriented Problem List: (1) Acute blood loss anemia (2) Acute hypoxemic respiratory failure (3) ARDS (adult respiratory distress syndrome) (4) Ileus following gastrointestinal surgery (5) Acute renal failure (6) Small bowel obstruction (7) Ischemia, bowel (8) Ascites (9) Physical deconditioning Symptom Scale: (1) Pain 0-10 Scale: Unable to quantify Comment: Secondary to recent surgeries, generalize decline, bedbound status, infection, drains. (2) Dyspnea 0-10 Scale: Unable to quantify Comment: Remains on mechanical ventilation via tracheostomy . Pertinent Non-Medical Issues Psychosocial: . Spiritual: Islam kirk. Legal: Patient currently incapacitated to make her own health care decisions, uncertain if she will regain capacity. According to [place] statutes, health care proxy decision-making falls to her spouse. Ethical issues impacting care: No known concerns at this time. . Important Contacts * Edgar Ramirez, /HCP: [phone] . Prognosis Mrs. Ramirez is a 61-year-old female who underwent gastric bypass surgery in August 2017 she has had complication including bowel obstruction secondary to gangrenous small bowel with abscess, fistula, sepsis and respiratory failure. Patient remains critically ill in ICU. Will likely have ongoing complications including recurrent infection/sepsis. Overall prognosis appears poor. . Code Status: No Code Plan * CODE STATUS: DNR/DNI. * HEALTHCARE DECISION-MAKING: Patient currently incapacitated to make her own health care decisions, not likely to regain capacity given worsening critical condition. According to [place] statutes, health care proxy decision-making falls to her spouse Edgar Ramirez. has accepted this role. * GOALS OF CARE: Patient's acting as healthcare proxy decision maker has elected to transition patient to comfort-directed care/compassionate withdrawal of life support given very poor prognosis for survival and patient's known wishes. receptive to hospice should patient's survives the night , patient currently unstable for transfer to hospice care center. * SYMPTOMS: Comfort-directed medications for management of pain, shortness of breath, oral secretions, dyspnea and nausea have been entered. * Case discussed in great detail with Dr. Landin, [place] JOHN and bedside nurse Mavis. * Exhibits B&C has been sign. * Anticipatory guidance provided. * Spiritual services offered, declined by family. * Ongoing emotional support and active listening provided. * Palliative care contact information provided. * Palliative care will continue to follow-up to assist with symptom management/ goals of care. . Time Spent Total Floor Time (mins): 66 (Total time to include family meeting from 10:35 to 11:07, f/u family meeting from 11:22 to 11:33, review of medical records, physical exam, case discussion with Dr. Landin and bedside RN.) >50% Counseling/Coord of Care: Yes Attestation To help prompt me to consider important information that might be impacting today's encounter and assessment, information from prior notes written by myself or my colleagues may have been "brought forward" into today's note. My signature on this note, however, is an attestation that I personally performed the exam, history, and/or decision-making noted today, and, unless otherwise indicated, the interactions with patient, family, and staff as well as the review of records all occurred today. I also attest that the listed assessment and stated plan reflect my best clinical judgment today based on the combination of historical information, prior notes, and today's exam/ interactions. When time spent is documented, it refers only to time spent today by the signer, or if indicated, combined time spent today by collaborating physician/nurse practitioner. Lyly Pascal Oct 05, 2017 12:51
[2017-10-05] MEDS ORDERED: HYDROmorphone HCL PF 2 MG/ML VIAL IV PUSH SCH (16:00)
== END 2017-10-05 17:14 | disposition expired | DRG 3 ==
LOC: NEPC 09:13 → NEDA 13:45 → N07B 16:23 → N03B 09-08 16:15
PROVIDERS: ADMIT Surgery Surgical Critical Care; ATTEND Surgery Surgical Critical Care
PROC: 5A1955Z Respiratory Ventilation, Greater than 96 Consecutive Hours (ICD-10-PCS; 2017-09-08)
PROC: 0DNW4ZZ Release Peritoneum, Percutaneous Endoscopic Approach (ICD-10-PCS; 2017-09-08)
PROC: 0DB84ZZ Excision of Small Intestine, Percutaneous Endoscopic Approach (ICD-10-PCS; principal; 2017-09-08 13:03)
PROC: 02HV33Z Insertion of Infusion Device into Superior Vena Cava, Percutaneous Approach (ICD-10-PCS; 2017-09-09)
PROC: 04HY32Z Insertion of Monitoring Device into Lower Artery, Percutaneous Approach (ICD-10-PCS; 2017-09-09)
PROC: 30233N1 Transfusion of Nonautologous Red Blood Cells into Peripheral Vein, Percutaneous Approach (ICD-10-PCS; 2017-09-09)
PROC: 03HY32Z Insertion of Monitoring Device into Upper Artery, Percutaneous Approach (ICD-10-PCS; 2017-09-15)
PROC: 0B113F4 Bypass Trachea to Cutaneous with Tracheostomy Device, Percutaneous Approach (ICD-10-PCS; 2017-09-23)
PROC: 0BJ08ZZ Inspection of Tracheobronchial Tree, Via Natural or Artificial Opening Endoscopic (ICD-10-PCS; 2017-09-23)
PROC: 30233K1 Transfusion of Nonautologous Frozen Plasma into Peripheral Vein, Percutaneous Approach (ICD-10-PCS; 2017-09-30)
PROC: 02H633Z Insertion of Infusion Device into Right Atrium, Percutaneous Approach (ICD-10-PCS; 2017-10-03)
DX: K63.1 Perforation of intestine (nontraumatic) (principal); R65.21 Severe sepsis with septic shock; N17.0 Acute kidney failure with tubular necrosis; K65.1 Peritoneal abscess; J15.5 Pneumonia due to Escherichia coli; J81.1 Chronic pulmonary edema; J96.21 Acute and chronic respiratory failure with hypoxia; A41.9 Sepsis, unspecified organism; G93.41 Metabolic encephalopathy; K55.029 Acute infarction of small intestine, extent unspecified; R18.8 Other ascites; E87.4 Mixed disorder of acid-base balance; D62 Acute posthemorrhagic anemia; E87.0 Hyperosmolality and hypernatremia; Z68.44 Body mass index [BMI] 60.0-69.9, adult; K56.7 Ileus, unspecified; K91.89 Other postprocedural complications and disorders of digestive system; J95.851 Ventilator associated pneumonia; K95.89 Other complications of other bariatric procedure; E27.40 Unspecified adrenocortical insufficiency; K63.2 Fistula of intestine; E03.9 Hypothyroidism, unspecified; I10 Essential (primary) hypertension; E66.01 Morbid (severe) obesity due to excess calories; F32.9 Major depressive disorder, single episode, unspecified; M19.90 Unspecified osteoarthritis, unspecified site; M35.3 Polymyalgia rheumatica; E11.9 Type 2 diabetes mellitus without complications; G40.909 Epilepsy, unspecified, not intractable, without status epilepticus; M06.9 Rheumatoid arthritis, unspecified; M10.9 Gout, unspecified; F98.8 Other specified behavioral and emotional disorders with onset usually occurring in childhood and adolescence; G47.33 Obstructive sleep apnea (adult) (pediatric); E87.70 Fluid overload, unspecified; Z51.5 Encounter for palliative care; E83.42 Hypomagnesemia; E83.51 Hypocalcemia; E87.6 Hypokalemia; H70.93 Unspecified mastoiditis, bilateral; K66.0 Peritoneal adhesions (postprocedural) (postinfection); Y95 Nosocomial condition; Z74.01 Bed confinement status; Z79.84 Long term (current) use of oral hypoglycemic drugs; Z66 Do not resuscitate; Y83.2 Surgical operation with anastomosis, bypass or graft as the cause of abnormal reaction of the patient, or of later complication, without mention of misadventure at the time of the procedure; Y84.8 Other medical procedures as the cause of abnormal reaction of the patient, or of later complication, without mention of misadventure at the time of the procedure
CPT/HCPCS: 36430; 36556; 36600; 43752; 44500; 49405; 70450; 71010; 71250; 74176; 74177; 76937; 80048; 80053; 80076; 80202; 81001; 82140; 82150; 82805; 82948; 83605; 83690; 83735; 84100; 84132; 84134; 84155; 84484; 85007; 85014; 85018; 85025; 85027; 85384; 85610; 85730; 86850; 86900; 86901; 86920; 86927; 87040; 87070; 87077; 87086; 87186; 87205; 87641; 88307; 93005; 93306; 94002; 94003; 94640; 94664; 94770; 95819; 96361; 96372; 96374; C1729; C9113; J0131; J0171; J0330; J0360; J0692; J1120; J1170; J1250; J1450; J1630; J1650; J1720; J1815; J1940; J1953; J1956; J1980; J2060; J2248; J2250; J2270; J2370; J2405; J2543; J2550; J2997; J3010; J3370; J3475; J3480; J7030; J7040; J7050; J7060; J7070; J7120; P9016; P9017; P9045; P9047; Q9963; Q9967